=== PATIENT | male | born 1965 | race Caucasian/White ===

== ENCOUNTER → 2016-04-29 | Outpatient (CLI) | payer OTHER ==
[~2016-04-29] MED LIST: ASPI325T39 PO; ATOR-26 PO; BUSP-8 PO; CARV12.5 PO; CARV12.52 PO; CEFD300C2 PO; CHOL100010 PO; CHOL2000 PO; GABA800T PO; LAMO200T PO; LEVE500T13 PO; LEVO-18 PO; LISI-729 PO; LISI5TAB PO; LMC100 PO; METH500T37 PO; NOTE; OMEP40CA41 PO; OXY/15 PO; PROM25TA9 PO; PRZ/40 PO; QUET1TAB37 PO; THIA100T11 PO; [UNRECOGNIZED DRUG - CODE] PR; [UNRECOGNIZED DRUG - CODE] RE
[2016-04-29 14:30] LABS: HEMATOCRIT 34.7 % (42-52); MEAN CELL VOLUME 87.2 fL (80-100); MEAN CORPUSCULAR HEMOGLOBIN 30.7 pg (25-34); MEAN CORPUSCULAR HGB CONC 35.2 g/dl (32-36); MEAN PLATELET VOLUME 9.5 fL (7.4-10.4); PLATELET COUNT 276 K/uL (130-400); RED BLOOD COUNT 3.98 M/uL (4.7-6.1); WHITE BLOOD COUNT 5.53 K/uL (4.8-10.8)
[2016-04-29 14:41] LABS: ALT/SGPT 16 U/L (12-78); AST/SGOT 15 U/L (15-37); BLOOD UREA NITROGEN 19 mg/dl (7-18); BUN/CREATININE RATIO 19.5 (10-20); CALCIUM 9.9 mg/dl (8.5-10.1); CARBON DIOXIDE 23 mmol/L (21-32); CHLORIDE 101 mmol/L (98-107); CREATININE 0.96 mg/dl (0.60-1.40); GLUCOSE 66 mg/dl (70-99); POTASSIUM 4.3 mmol/L (3.5-5.1); SODIUM 138 mmol/L (136-145)
[2016-04-29 14:44] LABS: ALB/GLOB RATIO 1.3 (0.9-2); ALKALINE PHOSPHATASE 85 U/L (45-117)
[2016-04-30 06:16] LABS: ESTIMATED AVERAGE GLUCOSE 105 mg/dl; HA1C FLAG Normal (Normal)
== END | disposition home or self-care (01) ==
LOC: C.LABSPEC 14:26
PROVIDERS: ATTEND Family Medicine
DX: E11.9 Type 2 diabetes mellitus without complications (principal); I10 Essential (primary) hypertension; I63.9 Cerebral infarction, unspecified

== ENCOUNTER → 2016-06-24 | Outpatient (CLI) | payer OTHER | END | disposition home or self-care (01) | LOC: C.LABBC 12:31 | PROVIDERS: ATTEND Family Medicine | DX: Z11.59 Encounter for screening for other viral diseases (principal) ==

== ENCOUNTER → 2016-07-20 | Outpatient (CLI) | payer OTHER ==
[2016-07-20 14:36] LABS: HEMATOCRIT 36.4 % (42-52); MEAN CELL VOLUME 89.7 fL (80-100); MEAN CORPUSCULAR HEMOGLOBIN 30.3 pg (25-34); MEAN CORPUSCULAR HGB CONC 33.8 g/dl (32-36); MEAN PLATELET VOLUME 9.7 fL (7.4-10.4); PLATELET COUNT 296 K/uL (130-400); RED BLOOD COUNT 4.06 M/uL (4.7-6.1); WHITE BLOOD COUNT 8.56 K/uL (4.8-10.8)
[2016-07-20 15:01] LABS: ALT/SGPT 15 U/L (12-78); AST/SGOT 9 U/L (15-37); BLOOD UREA NITROGEN 15 mg/dl (7-18); BUN/CREATININE RATIO 16.8 (10-20); CALCIUM 8.8 mg/dl (8.5-10.1); CARBON DIOXIDE 29 mmol/L (21-32); CHLORIDE 109 mmol/L (98-107); CREATININE 0.88 mg/dl (0.60-1.40); GLUCOSE 90 mg/dl (70-99); POTASSIUM 4.7 mmol/L (3.5-5.1); SODIUM 144 mmol/L (136-145)
[2016-07-20 15:04] LABS: ALB/GLOB RATIO 1.2 (0.9-2); ALKALINE PHOSPHATASE 82 U/L (45-117)
== END | disposition home or self-care (01) ==
LOC: C.LABSPEC 14:06
PROVIDERS: ATTEND Family Medicine Hospice and Palliative Medicine
DX: I63.9 Cerebral infarction, unspecified (principal)

== ENCOUNTER 2016-10-20 03:57 | Inpatient (IN) | payer OTHER ==
[2016-10-20] VITALS (17 sets, daily range): BP systolic 135–192; BP diastolic 86–127; PULSE 76–115; TEMP 36.8–37.1; O2SAT 98–100; Ht 180.3 cm; Wt 80.5 kg
[~2016-10-20] VITALS: Ht 180.3 cm; Wt 80.5 kg
[~2016-10-20 03:57] MED LIST changes: -CARV12.5 PO; -CHOL2000 PO; -LEVE500T13 PO; -LEVO-18 PO; -LISI-729 PO; -LMC100 PO; -NOTE; -[UNRECOGNIZED DRUG - CODE] PR
[2016-10-20] MEDS ORDERED: SODIUM CHLORIDE 0.9% 500ML 500 ML IV STA ×2 (04:21→04:54)
[2016-10-20] MEDS ORDERED: SODIUM CHLORIDE 0.9% 1000ML 1,000 ML IV STA ×2 (04:21→05:35)
[2016-10-20] MEDS ORDERED: CARV12.5 PO (04:24)
[2016-10-20] MEDS ORDERED: CHOL2000 PO (04:27)
[2016-10-20] MEDS ORDERED: [UNRECOGNIZED DRUG - CODE] PR (04:29)
[2016-10-20] MEDS ORDERED: LISI-729 PO (04:32)
[2016-10-20 04:39] LABS: INR 0.9 (0.9-1.1)
[2016-10-20] MEDS ORDERED: RAPID SEQUENCE INDUCTION BAG ONE ×2 (04:45→15:35)
[2016-10-20] MEDS ORDERED: PROPOFOL IV EMULSION 10 MG/ML 100 ML VIAL IV ONE (04:53)
[2016-10-20 04:58] LABS: BLOOD UREA NITROGEN 11 mg/dl (7-18); BUN/CREATININE RATIO 8.1 (10-20); CALCIUM 8.7 mg/dl (8.5-10.1); CARBON DIOXIDE 18 mmol/L (21-32); CHLORIDE 103 mmol/L (98-107); GLUCOSE 304 mg/dl (70-99); MAGNESIUM 2.3 mg/dl (1.8-2.4); POTASSIUM 3.2 mmol/L (3.5-5.1); SODIUM 137 mmol/L (136-145)
[2016-10-20 04:59] LABS: HEMATOCRIT 44.3 % (42-52); MEAN CELL VOLUME 94.7 fL (80-100); MEAN CORPUSCULAR HEMOGLOBIN 32.7 pg (25-34); MEAN CORPUSCULAR HGB CONC 34.5 g/dl (32-36); MEAN PLATELET VOLUME 9.7 fL (7.4-10.4); PLATELET COUNT 344 K/uL (130-400); RED BLOOD COUNT 4.68 M/uL (4.7-6.1); WHITE BLOOD COUNT 24.92 K/uL (4.8-10.8)
[2016-10-20] MEDS ORDERED: LEVETIRACETAM IV 1,000 MG in DEXTROSE 5% 100ML 100 ML IV ONE (05:00)
[2016-10-20] MEDS ORDERED: PROPOFOL IV EMULSION 10 MG/ML 100 ML VIAL IV STA ×2 (05:00→05:07)
--- NOTE | 2016-10-20 05:00 | EMERGENCY ROOM VISIT NOTE ---
ED Visit Note First contact with patient: 04:02 Patient seen by me on an emergent status due to the fact that the patient had a reported seizure and was obtunded upon arrival. Patient was found obtunded by me unable to maintain his airway with sonorous respirations. Patient did not respond no a deep sternal rub. Patient was brought to the critical care room and was intubated emergently by me. Patient was started on IV Keppra, IV to prevent, patient received a full evaluation for seizure possible sepsis. Patient will be admitted to the intensive care unit. Endotracheal Intubation Indication [respiratory failure]. The patient was on 100% oxygen via NRB prior to the procedure. Suction, airway equipment, RSI drugs, respiratory equipment, and appropriate personnel were prepared prior to the initiation of the procedure. A time out was taken. Induction was performed with etomidate 20 mg IV, succinylcholine 100 mg IV. After observing the clinical benefit of the medications, the airway was easily visualized utilizing a laryngoscope with a Mac 4 blade. A 7.5 size ETT tube was placed atraumatically to 22 cm using standard technique. The cuff inflated without signs of malfunction. There were bilateral breath sounds, positive colormetric change, no gastric sounds, a good capnography waveform, and post procedure pulse oximetry was 98 %. Post intubation sedation and paralysis was administered diprivan. There were no complications.
[2016-10-20 05:01] LABS: PHOSPHORUS 5.2 mg/dl (2.5-4.9)
[2016-10-20 05:10] LABS: URINE APPEARANCE CLEAR (CLEAR); URINE BILIRUBIN NEG (NEG); URINE COLOR YELLOW; URINE NITRITE NEG (NEG); URINE SPECIFIC GRAVITY 1.018 (1.000-1.030); UROBILINOGEN NEG (NEG); ZZURINE CULT IF INDIC CATH NO
[2016-10-20 05:14] LABS: MANUAL MICROSCOPIC REQUIRED? NO; REVIEW REQ? YES
[2016-10-20 05:18] LABS: BETA-HYDROXYBUTYRATE 1.51 mg/dL (0.2-2.81); CKMB/CK RATIO 1.8 (0-3.0)
[2016-10-20] MEDS ORDERED: VANCOMYCIN INJ 2,000 MG in SODIUM CHLORIDE 0.9% 500ML 500 ML IV STA (05:35)
[2016-10-20] MEDS ORDERED: PIPERACILLIN/TAZOBACTAM 4.5 GM/100ML D5W IV STA (05:35)
[2016-10-20 05:45] LABS: BENZODIAZEPINE, URINE POS (NEG); COCAINE,URINE NEG (NEG); PHENCYCLIDINE, URINE NEG (NEG)
[2016-10-20] MEDS ORDERED: GLUCOSE 40% GEL 15 GM TUBE PO PRN (06:00)
[2016-10-20] MEDS ORDERED: GLUCAGON FOR INJ 1 MG VIAL SQ PRN (06:00)
[2016-10-20] MEDS ORDERED: GLUCOSE 10 TABS/TUBE PO PRN (06:00)
[2016-10-20] MEDS ORDERED: LORAZEPAM 2 MG/ML 1 ML VIAL IV PRN (06:00)
[2016-10-20] MEDS ORDERED: DEXTROSE 50% 50 ML SYR IV PRN (06:00)
[2016-10-20] MEDS ORDERED: ONDANSETRON INJ 2 MG/ML 2 ML VIAL IV PRN (06:00)
[2016-10-20] MEDS ORDERED: NOTE (06:10)
[2016-10-20] MEDS ORDERED: MIDAZOLAM 125MG/250ML D5W 250 ML IV PRN (06:11)
[2016-10-20] MEDS ORDERED: LORAZEPAM INJ 1 MG in SYRINGE 0.5 ML IV PRN (06:15)
[2016-10-20 06:16] LABS: EOSINOPHIL % 0.9 %; LYMPH ABS # 9.49 K/uL (1.2-3.4); LYMPHOCYTE % 38.1 %; META ABS # 0.87 K/uL (0-0); METAMYELOCYTE % 3.5 %; MYELOCYTE % 0.9 %; NEUTROPHILS % 29.6 %; VARIANT LYM ABS # 4.56 K/uL; VARIANT LYMPHOCYTE % 18.3 %
[2016-10-20 06:18] LABS: COMPLETE YES
[2016-10-20 06:28] LABS: ISTAT ARTERIAL BLOOD GAS HCO3 25 meq/L (19-24); ISTAT ARTERIAL BLOOD GAS PCO2 64 mmHg (35-46); ISTAT ARTERIAL BLOOD GAS PO2 > 420 mmHg (80-95); ISTAT CARBON DIOXIDE 27 mEq/l (24-31)
--- NOTE | 2016-10-20 06:33 | DIAGNOSTIC IMAGING REPORT ---
HEAD WITHOUT CONTRAST (CT) CLINICAL HISTORY: 50 years-old Male with seizure, AMS. Acute altered mental status. Initial exam. TECHNIQUE: Multiple axial CT images of the head were obtained without contrast. A dose lowering technique was utilized adhering to the principles of ALARA. CT DOSE: 614.27 mGy.cm COMPARISON: CT head and MRI brain 01/30/2015. FINDINGS: No acute intracranial hemorrhage, midline shift, mass, large territorial ischemia or abnormal extra-axial collection. Encephalomalacia related to remote infarction again seen within the left cerebral hemisphere frontoparietal distribution. There is mild cerebral atrophy. Remote lacunar infarctions of the basal ganglia are unchanged. The calvarium is intact. The paranasal sinuses, mastoid air cells, and middle ear cavities are clear. There is a small right occipital scalp hematoma, 2.8 x 0.6 cm. IMPRESSION: 1. Small right occipital scalp hematoma without acute intracranial abnormality. Negative for hemorrhage or calvarial fracture. 2. Chronic changes as above including remote left frontoparietal infarction. The above report was generated using voice recognition software. It may contain grammatical, syntax or spelling errors. Electronically signed by: Sherman Silverio M.D. 10/20/2016 6:32 AM Dictated Date/Time: 10/20/2016 6:29 AM
--- NOTE | 2016-10-20 06:34 | EMERGENCY ROOM VISIT NOTE ---
History First contact with patient: 04:02 Chief Complaint: SEIZURE Stated Complaint: SEIZURE Nursing Triage Summary: pt brought to main ED by ALS services. ALS reports pt has a seizure hx and is noncompliant with medications for 2-3 months. reports roommate/caregiver called 911 when pt began seizing tonight, ALS reports >10min grand mal seizure with full body shaking. pt was given 5mg versed nasally by ALS which did control seizures. [facility]. upon arrival pt is unresponsive except to deep painful stimuli. nasal trumpet in left nare placed by ALS. pt is breathing independently with occasional grunting. nonrebreather in place. skin is pale and clammy. pt has disheveled apperance. pupils pinpoint. abd soft. History of Present Illness The patient is a 50 year old male who presents to the Emergency Room with complaints of prolonged seizure. Patient's caregiver called EMS as patient had a seizure for greater than 10 minutes. The caregiver states that the patient called out for him as he knew he is having a seizure. He seized for greater than 10 minutes and called EMS. When EMS arrived they gave him Versed and the seizing finally resolved. Caregiver states that the patient has chosen not to take his Lamictal anymore for his seizure disorder. 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 He is aphasic. Caregiver states that he smokes cigarettes and occasionally smokes marijuana. He also states that he takes Tylenol and Motrin at his leisure. No alcohol use. Patient states the patient has not complained of anything recently. Patient is postictal / obtunded and unable to obtain history. He does moan to sternal rub. Caregiver states that he is not taking any medicines at all that he is supposed to. Caregiver states that he is a full code. Review of Systems Unable to obtain secondary to altered mental status from being postictal from seizure Past Medical/Surgical History Medical Problems: (1) Acute renal failure (2) Acute renal failure (3) Acute renal failure syndrome (4) Anticoagulant therapy (5) Aphasia (6) Cardiomyopathy (7) CVA (cerebral vascular accident) (8) Depression (9) Diabetes mellitus (10) Elevated serum troponin (11) Hemiparesis (12) Ischemic stroke (13) Left arm weakness (14) liver disease (15) LV mural thrombus (16) Obtunded (17) Seizure (18) TIA (transient ischemic attack) (19) Urinary retention Family History Patient reports no known family medical history. Social History Smoking Status: Unknown if Ever Smoked Alcohol Use: occasionally Drug Use: none Marital Status: single Housing Status: lives with significant other Occupation Status: unemployed, disabled Current/Historical Medications Scheduled Aspirin (Aspirin Ec), 325 MG PO QAM Atorvastatin (Lipitor), 80 MG PO QPM Carvedilol (Coreg), 12.5 MG PO BID Cholecalciferol (Vitamin D3), 2,000 UNITS PO DAILY Diazepam (Anticonvulsant) (Diastat Acudial), 1 DOSE [place] PRN/SEIZURE Fluoxetine Hcl (Prozac), 80 MG PO QAM Gabapentin (Neurontin), 800 MG PO TID Lamotrigine (Lamictal), 250 MG PO BID Lisinopril (Zestril), 5 MG PO DAILY Omeprazole (Prilosec), 40 MG PO DAILY Quetiapine Fumarate (Seroquel), 300 MG PO HS Thiamine Hcl (Vitamin B-1), 100 MG PO QAM Scheduled PRN Methocarbamol (Robaxin), 500 MG PO TID PRN for MUSCLE SPASMS Promethazine Hcl (Phenergan), 25 MG PO TID PRN for Nausea Physical Exam Vital Signs Date Time Temp Pulse Resp B/P (MAP) Pulse Ox O2 Delivery O2 Flow Rate FiO2 10/20/16 06:01 109 0 185/115 100 10/20/16 05:56 118 0 100 10/20/16 05:51 124 0 172/115 97 10/20/16 05:46 133 0 98 10/20/16 05:41 106 0 138/88 97 10/20/16 05:36 115 0 95 10/20/16 05:31 121/84 10/20/16 05:27 108 12 128/97 98 10/20/16 05:25 40 10/20/16 05:22 113 21 97 10/20/16 05:21 135/89 10/20/16 05:17 130 17 97 10/20/16 05:12 121 25 99 10/20/16 05:11 158/113 10/20/16 05:08 182/118 10/20/16 05:07 139 20 100 10/20/16 05:02 136 28 96 10/20/16 05:01 208/128 10/20/16 04:57 132 30 98 10/20/16 04:52 147 30 96 10/20/16 04:51 183/117 10/20/16 04:50 130 183/117 97 Ambu-Bag 10/20/16 04:50 98 10/20/16 04:50 205/120 10/20/16 04:49 135 205/120 98 Non-Rebreather 15.0 10/20/16 04:47 136 15 203/113 98 10/20/16 04:44 137 6 203/113 98 Non-Rebreather 15.0 10/20/16 04:42 136 20 98 10/20/16 04:29 98 Non-Rebreather 15.0 10/20/16 04:29 98 Non-Rebreather 15.0 10/20/16 04:28 137 6 98 Room Air 10/20/16 04:27 136 7 98 10/20/16 04:23 137 10/20/16 04:22 138 3 98 10/20/16 04:15 138 6 194/119 98 Non-Rebreather 15.0 10/20/16 04:00 98 Non-Rebreather 15.0 10/20/16 04:00 37.4 138 8 192/115 96 Non-Rebreather 15.0 Physical Exam VITALS: Vitals are noted on the nurse's note and reviewed by myself. Vital signs hypertensive, tachycardic. GENERAL: White male unable to follow commands SKIN: The skin was without rashes, erythema, edema, or bruising. There is no tenting of the skin. Capillary reflex less than 2 seconds. HEAD: Normocephalic atraumatic. EARS: External auditory canals clear, tympanic membranes pearly rodriguez without erythema or effusion bilaterally. EYES: Pupils equal round and reactive to light and accommodation. Conjunctivae without injection, sclerae without icterus. NOSE: Patent, turbinates without inflammation or discharge. MOUTH: Mucous membranes mildly dry. Pharynx without erythema or exudate. Uvula midline. Airway patent. Tongue does not deviate. NECK: Supple without nuchal rigidity. No lymphadenopathy. No thyromegaly. No JVD. HEART: Tachycardic rate and rhythm LUNGS: Clear to auscultation bilaterally without wheezes, rales or rhonchi. No dullness to percussion. No retractions or accessory muscle use. ABDOMEN: Positive bowel sounds x 4. Normal tympanic percussion. Soft, nontender, without masses or organomegaly. Grimaldo sign negative. No guarding or rebound tenderness. MUSCULOSKELETAL: No muscle atrophy, erythema, or edema noted. NEURO: Patient was barely responsive to painful stimuli. Medical Decision & Procedures Laboratory Results 10/20/16 04:10 Red Blood Count 4.68, Mean Corpuscular Volume 94.7, Mean Corpuscular Hemoglobin 32.7, Mean Corpuscular Hemoglobin Concent 34.5, Mean Platelet Volume 9.7 10/20/16 04:10 Test 10/20/16 04:05 10/20/16 04:10 10/20/16 04:46 10/20/16 05:26 Urine Color YELLOW Urine Appearance CLEAR (CLEAR) Urine pH 5.0 (4.5-7.5) Urine Specific [place] 1.018 (1.000-1.030) Urine Protein 2+ (NEG) Urine Glucose (UA) 2+ (NEG) Urine Ketones NEG (NEG) Urine Occult Blood TRACE (NEG) Urine Nitrite NEG (NEG) Urine Bilirubin NEG (NEG) Urine Urobilinogen NEG (NEG) Urine Leukocyte Esterase NEG (NEG) Urine WBC (Auto) 1-5 /hpf (0-5) Urine RBC (Auto) 0-4 /hpf (0-4) Urine Hyaline Casts (Auto) 0 /lpf (0-5) Urine Epithelial Cells (Auto) 5-10 /lpf (0-5) Urine Bacteria (Auto) NEG (NEG) Urine Renal Epithelial Cells /lpf (0-5) Urine Sperm (Auto) PRESENT (NOT PRESENT) Urine Opiates Screen NEG (NEG) Urine Methadone, Qualitative NEG (NEG) Urine Barbiturates NEG (NEG) Urine Phencyclidine (PCP) Level NEG (NEG) Ur Amphetamine/Methamphetamine NEG (NEG) MDMA (Ecstasy) Screen NEG (NEG) Urine Benzodiazepines Screen POS (NEG) Urine Cocaine Metabolite NEG (NEG) Urine Marijuana (THC) POS (NEG) White Blood Count 24.92 K/uL (4.8-10.8) Red Blood Count 4.68 M/uL (4.7-6.1) Hemoglobin 15.3 g/dL (14.0-18.0) Hematocrit 44.3 % (42-52) Mean Corpuscular Volume 94.7 fL (80-100) Mean Corpuscular Hemoglobin 32.7 pg (25-34) Mean Corpuscular Hemoglobin Concent 34.5 g/dl (32-36) Platelet Count 344 K/uL (130-400) Mean Platelet Volume 9.7 fL (7.4-10.4) RDW Standard Deviation 41.9 fL (36.4-46.3) RDW Coefficient of Variation 12.3 % (11.5-14.5) Neutrophils % (Manual) 29.6 % Lymphocytes % (Manual) 38.1 % Variant Lymphocytes % (manual) 18.3 % Monocytes % (Manual) 8.7 % Eosinophils % (Manual) 0.9 % Metamyelocytes % 3.5 % Myelocytes % 0.9 % Neutrophils # (Manual) 7.38 K/uL (1.4-6.5) Total Absolute Neutrophils 7.38 K/uL (1.4-6.5) Lymphocytes # (Manual) 9.49 K/uL (1.2-3.4) Absolute Variant Lymphocytes 4.56 K/uL Total Absolute Lymphocytes 14.05 K/uL (1.2-3.4) Monocytes # (Manual) 2.17 K/uL (0.11-0.59) Eosinophils # (Manual) 0.22 K/uL (0-0.5) Metamyelocytes # 0.87 K/uL (0-0) Myelocytes # 0.22 K/uL (0-0) Red Blood Cell Morphology Unremarkable Prothrombin Time 10.0 SECONDS (9.0-12.0) Prothromb Time International Ratio 0.9 (0.9-1.1) Activated Partial Thromboplast Time 26.4 SECONDS (21.0-31.0) Partial Thromboplastin Ratio 1.0 Anion Gap 16.0 mmol/L (3-11) Estimated GFR () 66.9 Estimated GFR (Non- 57.8 BUN/Creatinine Ratio 8.1 (10-20) Calcium Level 8.7 mg/dl (8.5-10.1) Phosphorus Level 5.2 mg/dl (2.5-4.9) Magnesium Level 2.3 mg/dl (1.8-2.4) Total Creatine Kinase 137 U/L (39-308) Creatine Kinase MB 2.4 ng/ml (0.5-3.6) Creatine Kinase MB Ratio 1.8 (0-3.0) Troponin I 0.064 ng/ml (0-0.045) Beta-Hydroxybutyric Acid 1.51 mg/dL (0.2-2.81) Procalcitonin 0.11 ng/ml (0-0.5) Thyroid Stimulating Hormone (TSH) 1.970 uIu/ml (0.300-4.500) Bedside Glucose 273 mg/dl (70-99) Bedside Lactic Acid Venous 5.00 mmol/L (0.90-1.70) Test 10/20/16 05:35 10/20/16 06:14 Salicylates Level 2.6 mg/dl (2.8-20) Acetaminophen Level 2 ug/ml (10-30) Ethyl Alcohol mg/dL < 3.0 mg/dl (0-3) Bedside Blood Gas pH (LAB) 7.20 (7.35-7.45) Bedside Blood Gas pCO2 (LAB) 64 mmHg (35-46) Bedside Blood Gas pO2 (LAB) > 420 mmHg (80-95) Bedside Blood Gas HCO3 (LAB) 25 meq/L (19-24) Bedside Blood Gas Total CO2 27 mEq/l (24-31) Bedside Blood Gas Base Excess (LAB) -3.0 meq/L (-9-1.8) Bedside Blood Gas O2 Saturation 100.0 % (90-95) Medications Administered Medications (Trade) Dose Ordered Sig/Jerson Route Start Time Stop Time Status Last Admin Dose Admin Sodium Chloride 500 ml @ 999 mls/hr Q31M STAT IV 10/20/16 04:21 10/20/16 04:51 DC 10/20/16 05:10 999 MLS/HR Sodium Chloride 1,000 ml @ 125 mls/hr Q8H STAT IV 10/20/16 04:21 10/20/16 12:20 10/20/16 05:13 125 MLS/HR Levetiracetam 1000 mg/Dextrose 110 ml @ 440 mls/hr ONE ONCE IV 10/20/16 05:00 10/20/16 05:14 DC 10/20/16 05:11 440 MLS/HR Sodium Chloride 500 ml @ 999 mls/hr Q31M STAT IV 10/20/16 04:54 10/20/16 05:24 DC 10/20/16 05:11 999 MLS/HR Propofol (Diprivan Iv Emulsion 100ml Vial) 1 dose UD STAT IV 10/20/16 05:07 10/20/16 05:08 DC 10/20/16 05:11 1 DOSE Sodium Chloride 1,000 ml @ 999 mls/hr Q1H1M STAT IV 10/20/16 05:35 10/20/16 06:35 10/20/16 05:39 999 MLS/HR Piperacillin Sod/ Tazobactam Sod (Zosyn Iv) 4.5 gm NOW STAT IV 10/20/16 05:35 10/20/16 05:38 DC 10/20/16 05:52 4.5 GM Vancomycin HCl 2000 mg/Sodium Chloride 540 ml @ 200 mls/hr ONE STAT IV 10/20/16 05:35 10/20/16 08:16 10/20/16 06:24 200 MLS/HR ED Course Prior records/ancillary studies reviewed. Patient placed in seizure precautions immediately upon arrival. Nursing notes reviewed. Additional history obtained from EMS The patient's history was concerning for a possible seizure. Differential diagnosis: Etiologies such as infection, hypoglycemia, electrolyte abnormalities, cardiac sources, intracerebral event, trauma, toxicologic, neurologic, as well as others were entertained. Physical examination: As above. No signs of trauma. ER treatment provided: EMS gave Versed, IV fluids, Keppra, Zosyn, vancomycin, propofol On reassessment the patient felt better. Diagnostics interpretation by me: ECG: Normal sinus, normal intervals, Q waves in the inferior and lateral leads, no acute ST-T wave changes, rate of 137. Impression sinus tachycardia with Q waves present unchanged from prior EKG per chart review and reviewed by myself The labs revealed leukocytosis, elevated troponin, elevated lactic acid Sebastian catheter was placed. Positive drug screen for marijuana Imaging studies: Chest x-ray with proper placement of ET tube with no pneumonia, consolidation or pneumothorax per my interpretation. Head CT was read by stat radiology with no acute intracranial process. Chronic left MCA infarct Consultation: A consultation was placed with the hospitalist resident for reese Doan and Dr. Martins. The case was discussed and diagnostics were reviewed. Patient will be admitted to the ICU. The elastic tape inserter was notified by my attending. The patient has a history of seizures and experienced another episode. Patient a prolonged seizure and was obtunded upon arrival. He was on a non-rebreather and nasal trumpet was in place. Patient is aphasic. He was sent immediately for CAT scan. EKG showed no widening of the QRS. Patient was intubated upon return from CT by my Attending as he was not awaking or becoming aroused from his seizure. Caregiver states that he is a full code. he was given IV fluids and septic protocol was initiated. Patient was found to have an elevated troponin and lactic acid. The caregiver was informed of the above findings and kept informed throughout the stay. Caregiver stated that the patient just gave up on taking his meds. He states all he wanted to smoke marijuana and cigarettes. He states he has not been sleeping properly. He states she has of playing video games. He states that he has not been complaining of anything to him. The caregiver informed about the findings as listed above. All questions were answered and pleased with the treatment. Case reviewed with my attending Medical Decision As above Medication Reconcilliation Current Medication List: was personally reviewed by me Blood Pressure Screening Patient's blood pressure: Elevated blood pressure Blood pressure disposition: Referred to PCP Impression Primary Impression: Status epilepticus, generalized convulsive Additional Impressions: Altered mental status Elevated serum troponin Critical Care I have personally spent greater than 30 minutes of critical care time in the direct management of this patient. This includes bedside care, interpretation of diagnostic studies, and testing, discussion with consultants, patient, and family members, and other required patient management activities. This 30 minutes is in excess of all separately billable procedures. Departure Information Dispostion Being Evaluated By Hospitalist Condition POOR Referrals Jimmy Pratt, Brittany.[email or web address]. (PCP) Patient Instructions My [facility] Problem Qualifiers
[2016-10-20] MEDS ORDERED: INSULIN ASPART 100 UNITS/ML 3 ML PEN SC SCH ×2 (07:00→12:00)
--- NOTE | 2016-10-20 07:10 | DIAGNOSTIC IMAGING REPORT ---
SINGLE VIEW CHEST CLINICAL HISTORY: Change in mental status. Intubation. FINDINGS: An AP, portable, supine chest radiograph is compared to study dated 12/08/2015. The examination is degraded by portable technique and patient rotation. An endotracheal tube has been placed. The tip of the catheter projects 2.8 cm above the [place]. The heart is top normal for projection. The pulmonary vasculature is noncongested. There is mild bibasilar atelectasis. No airspace consolidation is seen typical for pneumonia and there is no large pleural effusion. No pneumothorax is seen. The bony thorax is grossly intact. IMPRESSION: 1. An endotracheal tube has been placed. The tip of the catheter projects 2.8 cm above the [place]. 2. The lungs are clear. Electronically signed by: Leon Gamino M.D. 10/20/2016 7:09 AM Dictated Date/Time: 10/20/2016 7:08 AM
[2016-10-20] MEDS ORDERED: VANCOMYCIN CONSULT ACTIVE PRN (08:30)
[2016-10-20] MEDS ORDERED: PIPERACILL/TAZOBAC CONSULT ACTIVE PRN (08:30)
[2016-10-20] MEDS: FAMOTIDINE IV INJ 20 MG in DEXTROSE 5% 100ML 100 ML IV SCH ×2 (08:35→22:25)
[2016-10-20] MEDS: METOPROLOL TARTRATE 1 MG/ML VIAL IV. SCH ×4 (08:36→22:26)
[2016-10-20] MEDS: PROPOFOL IV EMULSION 10 MG/ML 100 ML VIAL IV SCH (08:38)
[2016-10-20] MEDS: NSS + 20MEQ KCL 1000ML 1,000 ML IV SCH ×2 (08:55→16:07)
[2016-10-20] MEDS: LEVETIRACETAM IV 500 MG in DEXTROSE 5% 100ML 100 ML IV SCH ×2 (08:55→22:24)
--- NOTE | 2016-10-20 09:11 | History and Physical ---
History & Physical Date & Time of Service: Oct 20, 2016 at 08:52 Chief Complaint: Obtunded,Epilepticus,Generalized Convulsive Primary Care Physician: Jimmy Pratt D.O.Int.Med. History of Present Illness Source: caregiver, hospital records 50-year-old male with a past medical history of seizure disorder, stroke, hypertension, diabetes presented to the ER via EMS in status epilepticus. Per the patient's caregiver the patient started to have seizures at about 3 AM this morning. The seizure had lasted for more than 10 minutes. He denied any head injury but stated that the patient had fallen from his wheelchair. He had jerky movements but denied any bowel or bladder incontinence. There was no tongue biting. The patient was unresponsive on arrival and was intubated. Per the patient's caregiver the patient had stopped using his antiseizure medications along with rest of his medications about 3 months ago and had been using marijuana about 3 times a day. He stated that the patient had not complained about any any recent fevers or chills, upper respiratory tract infections, nausea or vomiting or abdominal pain. The patient also has a history of seizures that are triggered after urinary tract infection in November 2015. He also noted that the patient had not been sleeping well and had been awake for 36-48 hours and had been playing computer games. The patient was intubated and transferred to the ICU. Past Medical/Surgical History Medical Problems: (1) Acute renal failure Status: Resolved (2) Acute renal failure syndrome Status: Resolved (3) Anticoagulant therapy Status: Chronic (4) Aphasia Status: Chronic (5) Cardiomyopathy Permanent Comment: 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% Status: Chronic (6) CVA (cerebral vascular accident) Status: Resolved (7) Depression Status: Chronic (8) Diabetes mellitus Status: Chronic (9) Hemiparesis Permanent Comment: right hemiparesis Status: Chronic (10) Ischemic stroke Permanent Comment: left MCA received TPA echo- LV mural thrombus residual right hemiparesis + aphasia Status: Resolved (11) liver disease Status: Chronic (12) LV mural thrombus Permanent Comment: 2009 Status: Resolved (13) Seizure Status: Chronic (14) TIA (transient ischemic attack) Status: Resolved Family History Patient reports no known family medical history. Social History Smoking Status: Current Every Day Smoker Smokeless Tobacco Use: No Alcohol Use: none Drug Use: marijuana Marital Status: single Housing status: lives with friends Occupational Status: unemployed, disabled Immunizations History of Influenza Vaccine: Yes Influenza Vaccine Date: Dec 21, 2012 History of Tetanus Vaccine?: Unknown Tetanus Immunization Date: Aug 13, 2012 History of Pneumococcal: No History of Hepatitis B Vaccine: Unknown Multi-Drug Resistant Organisms History of MDRO: No Allergies Coded Allergies: Codeine (Verified Allergy, Mild, HIVES, 12/08/15) Home Medications Scheduled Aspirin (Aspirin Ec), 325 MG PO QAM Atorvastatin (Lipitor), 80 MG PO QPM Carvedilol (Coreg), 12.5 MG PO BID Cholecalciferol (Vitamin D3), 2,000 UNITS PO DAILY Diazepam (Anticonvulsant) (Diastat Acudial), 1 DOSE TN PRN/SEIZURE Fluoxetine Hcl (Prozac), 80 MG PO QAM Gabapentin (Neurontin), 800 MG PO TID Lamotrigine (Lamictal), 250 MG PO BID Lisinopril (Zestril), 5 MG PO DAILY Omeprazole (Prilosec), 40 MG PO DAILY Quetiapine Fumarate (Seroquel), 300 MG PO HS Thiamine Hcl (Vitamin B-1), 100 MG PO QAM Scheduled PRN Methocarbamol (Robaxin), 500 MG PO TID PRN for MUSCLE SPASMS Promethazine Hcl (Phenergan), 25 MG PO TID PRN for Nausea Review of Systems unable to obtain as patient is intubated Physical Exam Vital Signs Date Time Temp Pulse Resp B/P (MAP) Pulse Ox O2 Delivery O2 Flow Rate FiO2 10/20/16 08:30 99 20 160/107 (124) 98 10/20/16 08:27 36.8 102 20 169/123 98 Mechanical Ventilator 30 10/20/16 08:00 115 18 174/92 (119) 10/20/16 07:40 40 10/20/16 07:30 24 192/125 (147) 99 10/20/16 07:23 102 22 192/125 100 Mechanical Ventilator 10/20/16 06:56 112 25 99 10/20/16 06:51 110 25 200/129 99 10/20/16 06:46 119 23 98 10/20/16 06:42 201/127 10/20/16 06:41 116 23 100 10/20/16 06:36 109 24 100 10/20/16 06:31 117 27 200/136 100 10/20/16 06:26 98 19 100 10/20/16 06:21 106 13 193/120 100 10/20/16 06:16 103 0 100 10/20/16 06:11 106 3 186/123 100 10/20/16 06:06 104 0 100 10/20/16 06:01 109 0 185/115 100 10/20/16 05:56 118 0 100 10/20/16 05:51 124 0 172/115 97 10/20/16 05:46 133 0 98 10/20/16 05:41 106 0 138/88 97 10/20/16 05:36 115 0 95 10/20/16 05:31 121/84 10/20/16 05:27 108 12 128/97 98 10/20/16 05:25 40 10/20/16 05:22 113 21 97 10/20/16 05:21 135/89 10/20/16 05:17 130 17 97 10/20/16 05:12 121 25 99 10/20/16 05:11 158/113 10/20/16 05:08 182/118 10/20/16 05:07 139 20 100 10/20/16 05:02 136 28 96 10/20/16 05:01 208/128 10/20/16 04:57 132 30 98 10/20/16 04:52 147 30 96 10/20/16 04:51 183/117 10/20/16 04:50 130 183/117 97 Ambu-Bag 10/20/16 04:50 98 10/20/16 04:50 205/120 10/20/16 04:49 135 205/120 98 Non-Rebreather 15.0 10/20/16 04:47 136 15 203/113 98 10/20/16 04:44 137 6 203/113 98 Non-Rebreather 15.0 10/20/16 04:42 136 20 98 10/20/16 04:29 98 Non-Rebreather 15.0 10/20/16 04:29 98 Non-Rebreather 15.0 10/20/16 04:28 137 6 98 Room Air 10/20/16 04:27 136 7 98 10/20/16 04:23 137 10/20/16 04:22 138 3 98 10/20/16 04:15 138 6 194/119 98 Non-Rebreather 15.0 10/20/16 04:00 98 Non-Rebreather 15.0 10/20/16 04:00 37.4 138 8 192/115 96 Non-Rebreather 15.0 General Appearance: + pertinent finding (s/p intubation) Respiratory/Chest: normal breath sounds Cardiovascular: + tachycardia Abdomen/GI: normal bowel sounds, soft Neurologic/Psych: + pertinent finding (sedated) Diagnostics Laboratory Results Results Past 24 Hours Test 10/20/16 04:05 10/20/16 04:10 10/20/16 04:46 10/20/16 05:26 Range/Units Urine Color YELLOW Urine Appearance CLEAR CLEAR Urine pH 5.0 4.5-7.5 Urine Specific [employer] 1.018 1.000-1.030 Urine Protein 2+ NEG Urine Glucose (UA) 2+ NEG Urine Ketones NEG NEG Urine Occult Blood TRACE NEG Urine Nitrite NEG NEG Urine Bilirubin NEG NEG Urine Urobilinogen NEG NEG Urine Leukocyte Esterase NEG NEG Urine WBC (Auto) 1-5 0-5 /hpf Urine RBC (Auto) 0-4 0-4 /hpf Urine Hyaline Casts (Auto) 0 0-5 /lpf Urine Epithelial Cells (Auto) 5-10 0-5 /lpf Urine Bacteria (Auto) NEG NEG Urine Renal Epithelial Cells 0-5 /lpf Urine Sperm (Auto) PRESENT NOT PRESENT Urine Opiates Screen NEG NEG Urine Methadone, Qualitative NEG NEG Urine Barbiturates NEG NEG Urine Phencyclidine (PCP) Level NEG NEG Ur Amphetamine/Methamphetamine NEG NEG MDMA (Ecstasy) Screen NEG NEG Urine Benzodiazepines Screen POS NEG Urine Cocaine Metabolite NEG NEG Urine Marijuana (THC) POS NEG White Blood Count 24.92 4.8-10.8 K/uL Red Blood Count 4.68 4.7-6.1 M/uL Hemoglobin 15.3 14.0-18.0 g/dL Hematocrit 44.3 42-52 % Mean Corpuscular Volume 94.7 80-100 fL Mean Corpuscular Hemoglobin 32.7 25-34 pg Mean Corpuscular Hemoglobin Concent 34.5 32-36 g/dl Platelet Count 344 130-400 K/uL Mean Platelet Volume 9.7 7.4-10.4 fL RDW Standard Deviation 41.9 36.4-46.3 fL RDW Coefficient of Variation 12.3 11.5-14.5 % Neutrophils % (Manual) 29.6 % Lymphocytes % (Manual) 38.1 % Variant Lymphocytes % (manual) 18.3 % Monocytes % (Manual) 8.7 % Eosinophils % (Manual) 0.9 % Metamyelocytes % 3.5 % Myelocytes % 0.9 % Neutrophils # (Manual) 7.38 1.4-6.5 K/uL Total Absolute Neutrophils 7.38 1.4-6.5 K/uL Lymphocytes # (Manual) 9.49 1.2-3.4 K/uL Absolute Variant Lymphocytes 4.56 K/uL Total Absolute Lymphocytes 14.05 1.2-3.4 K/uL Monocytes # (Manual) 2.17 0.11-0.59 K/uL Eosinophils # (Manual) 0.22 0-0.5 K/uL Metamyelocytes # 0.87 0-0 K/uL Myelocytes # 0.22 0-0 K/uL Red Blood Cell Morphology Unremarkable Prothrombin Time 10.0 9.0-12.0 SECONDS Prothromb Time International Ratio 0.9 0.9-1.1 Activated Partial Thromboplast Time 26.4 21.0-31.0 SECONDS Partial Thromboplastin Ratio 1.0 Sodium Level 137 136-145 mmol/L Potassium Level 3.2 3.5-5.1 mmol/L Chloride Level 103 98-107 mmol/L Carbon Dioxide Level 18 21-32 mmol/L Anion Gap 16.0 3-11 mmol/L Blood Urea Nitrogen 11 7-18 mg/dl Creatinine 1.40 0.60-1.40 mg/dl Estimated GFR () 66.9 Estimated GFR (Non- 57.8 BUN/Creatinine Ratio 8.1 10-20 Random Glucose 304 70-99 mg/dl Calcium Level 8.7 8.5-10.1 mg/dl Phosphorus Level 5.2 2.5-4.9 mg/dl Magnesium Level 2.3 1.8-2.4 mg/dl Total Creatine Kinase 137 39-308 U/L Creatine Kinase MB 2.4 0.5-3.6 ng/ml Creatine Kinase MB Ratio 1.8 0-3.0 Troponin I 0.064 0-0.045 ng/ml Beta-Hydroxybutyric Acid 1.51 0.2-2.81 mg/dL Procalcitonin 0.11 0-0.5 ng/ml Thyroid Stimulating Hormone (TSH) 1.970 0.300-4.500 uIu/ml Bedside Glucose 273 70-99 mg/dl Bedside Lactic Acid Venous 5.00 0.90-1.70 mmol/L Test 10/20/16 05:35 10/20/16 06:14 Range/Units Salicylates Level 2.6 2.8-20 mg/dl Acetaminophen Level 2 10-30 ug/ml Ethyl Alcohol mg/dL < 3.0 0-3 mg/dl Bedside Blood Gas pH (LAB) 7.20 7.35-7.45 Bedside Blood Gas pCO2 (LAB) 64 35-46 mmHg Bedside Blood Gas pO2 (LAB) > 420 80-95 mmHg Bedside Blood Gas HCO3 (LAB) 25 19-24 meq/L Bedside Blood Gas Total CO2 27 24-31 mEq/l Bedside Blood Gas Base Excess (LAB) -3.0 -9-1.8 meq/L Bedside Blood Gas O2 Saturation 100.0 90-95 % Microbiology Results 10/20/16 Blood Culture, Received Pending 10/20/16 Blood Culture, Received Pending Diagnostic Radiology HEAD WITHOUT CONTRAST (CT) CLINICAL HISTORY: 50 years-old Male with seizure, AMS. Acute altered mental status. Initial exam. TECHNIQUE: Multiple axial CT images of the head were obtained without contrast. A dose lowering technique was utilized adhering to the principles of ALARA. CT DOSE: 614.27 mGy.cm COMPARISON: CT head and MRI brain 01/30/2015. FINDINGS: No acute intracranial hemorrhage, midline shift, mass, large territorial ischemia or abnormal extra-axial collection. Encephalomalacia related to remote infarction again seen within the left cerebral hemisphere frontoparietal distribution. There is mild cerebral atrophy. Remote lacunar infarctions of the basal ganglia are unchanged. The calvarium is intact. The paranasal sinuses, mastoid air cells, and middle ear cavities are clear. There is a small right occipital scalp hematoma, 2.8 x 0.6 cm. IMPRESSION: 1. Small right occipital scalp hematoma without acute intracranial abnormality. Negative for hemorrhage or calvarial fracture. 2. Chronic changes as above including remote left frontoparietal infarction. The above report was generated using voice recognition software. It may contain grammatical, syntax or spelling errors. SINGLE VIEW CHEST CLINICAL HISTORY: Change in mental status. Intubation. FINDINGS: An AP, portable, supine chest radiograph is compared to study dated 12/08/2015. The examination is degraded by portable technique and patient rotation. An endotracheal tube has been placed. The tip of the catheter projects 2.8 cm above the lake. The heart is top normal for projection. The pulmonary vasculature is noncongested. There is mild bibasilar atelectasis. No airspace consolidation is seen typical for pneumonia and there is no large pleural effusion. No pneumothorax is seen. The bony thorax is grossly intact. IMPRESSION: 1. An endotracheal tube has been placed. The tip of the catheter projects 2.8 cm above the lake. 2. The lungs are clear. Electronically signed by: Leon Gamino M.D. 10/20/2016 7:09 AM Impression Assessment and Plan 50-year-old male with a past medical history of seizure disorder, stroke, hypertension, diabetes presented to the ER via EMS after status epilepticus. Had received Versed by EMS and was obtunded and unresponsive and eventually intubated. received keppra in ER Unresponsiveness s/p Status epilepticus : likely Secondary to noncompliance to antiseizure medications vs infection vs new stroke - Currently intubated - Versed and propofol for sedation - Head CT: Small right occipital scalp hematoma without acute intracranial abnormality.Negative for hemorrhage or calvarial fracture. 2. Chronic changes as above including remote left frontoparietal infarction. - Consider MRI brain - Consult neurology/EEG - CXR neg for pneumonia - UA, UDS pending - vancomycin and Zosyn for broad spectrum coverage - Keppra and Ativan Elevated troponin/tachycardia - likely sec to demand - trend q8h - echo HTN - hydralazine as needed DM T2: - insulin sliding scale Full code Dispo; admitted to ICU Attending Addendum: I have physically seen and examined this patient, have directed the resident's medical activities, and agree with the H&P as noted above with the following exceptions as noted. The patient presented to the emergency department status post seizure, obtunded , and intubated for airway protection in the ED. HEENT--PERRL, EOMI, mucous membranes and oropharynx dry. Neck--supple, no JVD or bruits, thyroid normal, trachea midline, no adenopathy. Heart--tachycardic and regular no murmurs, rubs or gallops. Lungs--coarse breath sounds bilaterally, no wheeze. Abdomen--normal bowel sounds and soft, nondistended, no hernias or masses, no organomegaly. Extremities--no cyanosis, clubbing or edema. There are good distal pulses b/l. Dermatologic--normal skin turgor, normal color, warm and dry, no rash. Neurologic--limited assessment due to intubation. Rheumatologic--deferred due to sedation and intubation Psychiatric--deferred due to sedation and intubation. Assessment and Plan: Seizure disorder/noncompliant with medications for the past 3 months/marijuana smoked 3 times a day/post ictal, obtunded/intubated for airway protection in the ED-- Admit to the ICU. Propofol infusion and Versed infusion for sedation. CT of head negative. MRI of brain and EEG in the a.m. Vancomycin IV and Zosyn IV empirically for probable aspiration. Keppra 1000 mg IV given in the ED, and will continue at 500 mg IV twice a day. History of Lamictal orally, but not taken for at least 3 months. Adjust ventilator settings-repeat ABG in 1 hour, and every morning. Consult nurses' association counselor. Consult neurology. Elevated troponin/tachycardia-- Supply demand mismatch. Order 2-D echocardiogram with Dopplers. Lopressor 5 g IV every 4 hours with hold parameters. Level of Care Critical Care Advanced Directives Existing Advance Directive: No Existing Living Will: No Existing Power of Film Processing Shift Supervisor: Yes Resuscitation Status FULL RESUSCITATION VTE Prophylaxis VTE Risk Assessment Done? Y/N: Yes Risk Level: High Given or contraindicated: SCD's Note Total Time: Critical Care 30 - 74 minutes Resident Tracking Resident Involvement: Resident Care Provided Care Provided: Adult Hospital Medicine
[2016-10-20] MEDS ORDERED: INSULIN IV INFUSION PROTOCOL STA (09:37)
[2016-10-20] MEDS ORDERED: INSULIN PROTOCOL GOAL RANGE ONE (09:45)
[2016-10-20] MEDS ORDERED: MODERATE STRESS LEVEL ONE (09:45)
--- NOTE | 2016-10-20 10:07 | Neurology Consultation ---
Neurology Consultation Date of Consultation: Oct 20, 2016. Attending Physician: Nilton Olvera M.D. Primary Care Physician: Jimmy Pratt D.O.Int.Med. Reason for Consultation: Seizure History of Present Illness Source: hospital records The patient is a 50-year-old male who is known to me. 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 He has a history of noncompliance with his anticonvulsant therapy which has resulted in breakthrough seizures. The patient has been admitted to the hospital after a witnessed generalized convulsive episode that lasted about 10 minutes. It has been reported that he has been noncompliant with his Lamictal, smoking marijuana, playing video games and sleeping poorly for the past 2-3 days. His seizures resolved with administration of midazolam. He is currently sedated, in the intensive care unit, on the mechanical ventilator. He has been given a 1 g loading dose of Keppra. A serum glucose was 304 at the time of presentation. Electrocardiogram reveals sinus tachycardia, 137 bpm. His troponin is mildly elevated. CKs were normal. Urine drug screen is positive for marijuana metabolites. A Lamictal level is pending. I reviewed the images as well as the radiologist's interpretation of the recently completed CT of the head. The study reveals a chronic left frontoparietal infarct as well as a few chronic basal ganglia lacunar, left greater than right. There is no significant change compared with the previous CT of the head done on January 2015. An electroencephalogram has also been completed this morning. I reviewed the data directly. The study reveals left frontotemporal slowing and sharps with a normal-appearing background alpha rhythm. There is not appear to be ongoing seizure activity at this time. Past Medical/Surgical History Medical Problems: (1) Abdominal pain, left upper quadrant Status: Acute (2) Fever Status: Acute (3) Status epilepticus, generalized convulsive Status: Acute (4) Weakness Status: Acute Family History There is no pertinent family history that would place this patient at increased risk for additional neurological problems or complications in the context of his current illness Father: heart disease, diabetes Social History Smoking Status: Former smoker Drug Use: none Marital Status: single Housing Status: lives with significant other Occupation Status: unemployed, disabled Allergies Coded Allergies: Codeine (Verified Allergy, Mild, HIVES, 12/08/15) Current Inpatient Medications Current Inpatient Medications Medications (Trade) Dose Ordered Sig/Jerson Route Start Time Stop Time Status Last Admin Dose Admin Potassium Chloride/Sodium Chloride 1,000 ml @ 125 mls/hr Q8H IV 10/20/16 08:00 11/19/16 07:59 10/20/16 08:55 125 MLS/HR Lorazepam (Ativan Inj) 1 mg Q2H PRN IV 10/20/16 06:00 11/19/16 05:59 Famotidine 20 mg/ Dextrose 102 ml @ 200 mls/hr Q12H IV 10/20/16 08:00 11/19/16 07:59 10/20/16 08:35 200 MLS/HR Levetiracetam 500 mg/Dextrose 105 ml @ 420 mls/hr Q12 IV 10/20/16 09:00 11/19/16 08:59 10/20/16 08:55 420 MLS/HR Propofol (Diprivan Iv Emulsion 100ml Vial) 1 dose UD IV 10/20/16 08:18 10/23/16 08:17 10/20/16 08:38 1 DOSE Ondansetron HCl (Zofran Inj) 4 mg Q6H PRN IV 10/20/16 06:00 11/19/16 05:59 Insulin Aspart (novoLOG ASPART) SLIDING SCALE If C... ACHS SC 10/20/16 07:00 11/19/16 06:59 10/20/16 08:37 2 UNITS Glucose (Glucose 40% Gel) UD PRN PO 10/20/16 06:00 11/19/16 05:59 Glucose (Glucose Chew Tab) 1 tabs UD PRN PO 10/20/16 06:00 11/19/16 05:59 Dextrose (Dextrose 50% 50ML Syringe) 50 ml UD PRN IV 10/20/16 06:00 11/19/16 05:59 Glucagon (Glucagon Inj) 1 mg UD PRN SQ 10/20/16 06:00 11/19/16 05:59 Piperacillin Sod/ Tazobactam Sod 3.375 gm/Dextrose 115 ml @ 28.75 mls/ hr Q8 IV 10/20/16 06:00 10/27/16 05:59 UNV Vancomycin HCl 1000 mg/Sodium Chloride 270 ml @ 125 mls/hr NOW STAT IV 10/20/16 05:59 10/20/16 08:08 UNV Midazolam HCl 250 ml @ 0 mls/hr Q0M PRN IV 10/20/16 06:11 11/19/16 06:10 10/20/16 06:51 4 MLS/HR Metoprolol Tartrate (Lopressor Iv) 5 mg Q4 IV. 10/20/16 08:00 11/19/16 07:59 10/20/16 08:36 5 MG Hydralazine HCl (HydrALAZINE INJ) 10 mg Q4H PRN IV. 10/20/16 06:30 11/19/16 06:29 Vancomycin HCl (Consult) 1 ea UD PRN N/A 10/20/16 08:30 11/19/16 08:29 Piperacillin Sod/ Tazobactam Sod (Consult) 1 ea UD PRN N/A 10/20/16 08:30 11/19/16 08:29 Insulin Human Regular (Insulin IV Infusion Protocol) 1 ea NOW STAT N/A 10/20/16 09:37 10/20/16 09:38 UNV Insulin Aspart (novoLOG ASPART) SLIDING SCALE PCHS SC 10/20/16 12:00 11/19/16 11:59 UNV Miscellaneous (Insulin Protocol Goal Range (Other)) 1 ea ONE ONCE N/A 10/20/16 09:45 10/20/16 09:46 UNV Miscellaneous (Insulin Protocol Moderate Stress Level) 1 ea ONE ONCE N/A 10/20/16 09:45 10/20/16 09:46 UNV Review of Systems A review of systems cannot be obtained from this patient as he is unresponsive Physical Exam Vital Signs (Past 24 Hrs): Date Time Temp Pulse Resp B/P (MAP) Pulse Ox O2 Delivery O2 Flow Rate FiO2 10/20/16 08:36 102 160/107 10/20/16 08:30 99 20 160/107 (124) 98 10/20/16 08:27 36.8 102 20 169/123 98 Mechanical Ventilator 30 10/20/16 08:00 115 18 174/92 (119) 10/20/16 07:40 40 10/20/16 07:30 24 192/125 (147) 99 10/20/16 07:23 102 22 192/125 100 Mechanical Ventilator 10/20/16 06:56 112 25 99 10/20/16 06:51 110 25 200/129 99 10/20/16 06:46 119 23 98 10/20/16 06:42 201/127 10/20/16 06:41 116 23 100 10/20/16 06:36 109 24 100 10/20/16 06:31 117 27 200/136 100 10/20/16 06:26 98 19 100 10/20/16 06:21 106 13 193/120 100 10/20/16 06:16 103 0 100 10/20/16 06:11 106 3 186/123 100 10/20/16 06:06 104 0 100 10/20/16 06:01 109 0 185/115 100 10/20/16 05:56 118 0 100 10/20/16 05:51 124 0 172/115 97 10/20/16 05:46 133 0 98 10/20/16 05:41 106 0 138/88 97 10/20/16 05:36 115 0 95 10/20/16 05:31 121/84 10/20/16 05:27 108 12 128/97 98 10/20/16 05:25 40 10/20/16 05:22 113 21 97 10/20/16 05:21 135/89 10/20/16 05:17 130 17 97 10/20/16 05:12 121 25 99 10/20/16 05:11 158/113 10/20/16 05:08 182/118 10/20/16 05:07 139 20 100 10/20/16 05:02 136 28 96 10/20/16 05:01 208/128 10/20/16 04:57 132 30 98 10/20/16 04:52 147 30 96 10/20/16 04:51 183/117 10/20/16 04:50 130 183/117 97 Ambu-Bag 10/20/16 04:50 98 10/20/16 04:50 205/120 10/20/16 04:49 135 205/120 98 Non-Rebreather 15.0 10/20/16 04:47 136 15 203/113 98 10/20/16 04:44 137 6 203/113 98 Non-Rebreather 15.0 10/20/16 04:42 136 20 98 10/20/16 04:29 98 Non-Rebreather 15.0 10/20/16 04:29 98 Non-Rebreather 15.0 10/20/16 04:28 137 6 98 Room Air 10/20/16 04:27 136 7 98 10/20/16 04:23 137 10/20/16 04:22 138 3 98 10/20/16 04:15 138 6 194/119 98 Non-Rebreather 15.0 10/20/16 04:00 98 Non-Rebreather 15.0 10/20/16 04:00 37.4 138 8 192/115 96 Non-Rebreather 15.0 A full neurological examination cannot be completed on this patient as he is unresponsive, sedated, and on life support in the ICU. The patient is observed lying quietly in bed. No spontaneous movements are appreciated. Pupils are equal , round, and measure 2 mm in diameter, and react minimally to light. There is no gaze preference. There is no nystagmus. Corneal reflexes intact. Gag reflex intact. Decerebrate posturing is induced with noxious stimulation of the limbs, greater on the right. There is increased extensor tone observed for the right arm and leg as well. Tone for the left arm and leg normal to reduced. Plantar responses are upgoing bilaterally, although more so on the right. Laboratory Results Past 24 Hours: 10/20/16 04:10 Red Blood Count 4.68, Mean Corpuscular Volume 94.7, Mean Corpuscular Hemoglobin 32.7, Mean Corpuscular Hemoglobin Concent 34.5, Mean Platelet Volume 9.7 10/20/16 04:10 Test 10/20/16 04:05 10/20/16 04:10 10/20/16 04:46 10/20/16 05:26 Urine Color YELLOW Urine Appearance CLEAR (CLEAR) Urine pH 5.0 (4.5-7.5) Urine Specific [place] 1.018 (1.000-1.030) Urine Protein 2+ (NEG) Urine Glucose (UA) 2+ (NEG) Urine Ketones NEG (NEG) Urine Occult Blood TRACE (NEG) Urine Nitrite NEG (NEG) Urine Bilirubin NEG (NEG) Urine Urobilinogen NEG (NEG) Urine Leukocyte Esterase NEG (NEG) Urine WBC (Auto) 1-5 /hpf (0-5) Urine RBC (Auto) 0-4 /hpf (0-4) Urine Hyaline Casts (Auto) 0 /lpf (0-5) Urine Epithelial Cells (Auto) 5-10 /lpf (0-5) Urine Bacteria (Auto) NEG (NEG) Urine Renal Epithelial Cells /lpf (0-5) Urine Sperm (Auto) PRESENT (NOT PRESENT) Urine Opiates Screen NEG (NEG) Urine Methadone, Qualitative NEG (NEG) Urine Barbiturates NEG (NEG) Urine Phencyclidine (PCP) Level NEG (NEG) Ur Amphetamine/Methamphetamine NEG (NEG) MDMA (Ecstasy) Screen NEG (NEG) Urine Benzodiazepines Screen POS (NEG) Urine Cocaine Metabolite NEG (NEG) Urine Marijuana (THC) POS (NEG) White Blood Count 24.92 K/uL (4.8-10.8) Red Blood Count 4.68 M/uL (4.7-6.1) Hemoglobin 15.3 g/dL (14.0-18.0) Hematocrit 44.3 % (42-52) Mean Corpuscular Volume 94.7 fL (80-100) Mean Corpuscular Hemoglobin 32.7 pg (25-34) Mean Corpuscular Hemoglobin Concent 34.5 g/dl (32-36) Platelet Count 344 K/uL (130-400) Mean Platelet Volume 9.7 fL (7.4-10.4) RDW Standard Deviation 41.9 fL (36.4-46.3) RDW Coefficient of Variation 12.3 % (11.5-14.5) Neutrophils % (Manual) 29.6 % Lymphocytes % (Manual) 38.1 % Variant Lymphocytes % (manual) 18.3 % Monocytes % (Manual) 8.7 % Eosinophils % (Manual) 0.9 % Metamyelocytes % 3.5 % Myelocytes % 0.9 % Neutrophils # (Manual) 7.38 K/uL (1.4-6.5) Total Absolute Neutrophils 7.38 K/uL (1.4-6.5) Lymphocytes # (Manual) 9.49 K/uL (1.2-3.4) Absolute Variant Lymphocytes 4.56 K/uL Total Absolute Lymphocytes 14.05 K/uL (1.2-3.4) Monocytes # (Manual) 2.17 K/uL (0.11-0.59) Eosinophils # (Manual) 0.22 K/uL (0-0.5) Metamyelocytes # 0.87 K/uL (0-0) Myelocytes # 0.22 K/uL (0-0) Red Blood Cell Morphology Unremarkable Prothrombin Time 10.0 SECONDS (9.0-12.0) Prothromb Time International Ratio 0.9 (0.9-1.1) Activated Partial Thromboplast Time 26.4 SECONDS (21.0-31.0) Partial Thromboplastin Ratio 1.0 Anion Gap 16.0 mmol/L (3-11) Estimated GFR () 66.9 Estimated GFR (Non- 57.8 BUN/Creatinine Ratio 8.1 (10-20) Calcium Level 8.7 mg/dl (8.5-10.1) Phosphorus Level 5.2 mg/dl (2.5-4.9) Magnesium Level 2.3 mg/dl (1.8-2.4) Total Creatine Kinase 137 U/L (39-308) Creatine Kinase MB 2.4 ng/ml (0.5-3.6) Creatine Kinase MB Ratio 1.8 (0-3.0) Troponin I 0.064 ng/ml (0-0.045) Beta-Hydroxybutyric Acid 1.51 mg/dL (0.2-2.81) Procalcitonin 0.11 ng/ml (0-0.5) Thyroid Stimulating Hormone (TSH) 1.970 uIu/ml (0.300-4.500) Bedside Glucose 273 mg/dl (70-99) Bedside Lactic Acid Venous 5.00 mmol/L (0.90-1.70) Test 10/20/16 05:35 10/20/16 06:14 10/20/16 09:35 Salicylates Level 2.6 mg/dl (2.8-20) Acetaminophen Level 2 ug/ml (10-30) Ethyl Alcohol mg/dL < 3.0 mg/dl (0-3) Bedside Blood Gas pH (LAB) 7.20 (7.35-7.45) Bedside Blood Gas pCO2 (LAB) 64 mmHg (35-46) Bedside Blood Gas pO2 (LAB) > 420 mmHg (80-95) Bedside Blood Gas HCO3 (LAB) 25 meq/L (19-24) Bedside Blood Gas Total CO2 27 mEq/l (24-31) Bedside Blood Gas Base Excess (LAB) -3.0 meq/L (-9-1.8) Bedside Blood Gas O2 Saturation 100.0 % (90-95) Impression This is a 50-year-old male with a history of seizure disorder, chronic right hemiparesis, and chronic expressive aphasia related to a remote left MCA territory stroke. He has a history of noncompliance with his anticonvulsants and has been admitted with a prolonged generalized seizure reportedly related to noncompliance with his Lamictal recently. Sleep deprivation and potentially marijuana use may also have been provoking factors with this recent presentation. As described in the history of present illness, the patient remains unresponsive, sedated, and on life support. His seizures have resolved. Plan Case discussed with manager document at bedside. Continue Keppra 500 mg IV every 12 hours. I would restart his Lamictal when he is able to tolerate by mouth intake. Obtain a brain MRI to exclude interval development of stroke or other acute [employer] pathology. Follow-up with official EEG interpretation, to be read by Dr. Voss. I will make further recommendations on an as-needed basis depending on results of the above testing. Greater than 50% of today's 70 minute encounter was spent coordinating care with the manager document, and learning technologist.
--- NOTE | 2016-10-20 10:57 | Critical Care Consultation ---
Critical Care Consultation Date of Consultation: Oct 20, 2016. Attending Physician: Nilton Olvera M.D. Reason for Consultation: Seizure with intubation History of Present Illness Hx obtained from admitting doctor and emergency physician notes as patient is intubated and there is no family at the bedside 50-year-old male with a past medical history of seizure disorder, stroke, hypertension, diabetes presented to the ER via EMS in status epilepticus. Patient caregiver called 911 when the patient started seizing at 3AM this morning. EMS reports the patient having full body shaking for approximately 10 minutes in duration. The patient was given 5mg of versed nasally by EMS which did control his seizures. There was no tongue biting, or bowel/bladder incontinence during the episode. The patient did fall from his wheelchair as the seizure began. Upon arrival to the ED patient was on a non rebreather. He appeared obtunded, was non responsive to sternal rub, was pale and was grunting. It was decided by the ED physician to intubate the patient in order to protect his airway. 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 The patient was started on Keppra IV in the ED. Neurology were consulted for further management. In the ED the patient was also found to have a WCC of 25 and was started on vanc and pip-tazo. He also had a small bump in his troponin to .064 likely from demand ischaemia. Per the patient's caregiver the patient had stopped using his antiseizure medications along with rest of his medications about 3 months ago and had been using marijuana about 3 times a day. The patient also has a history of seizures that are triggered after urinary tract infection in November 2015. He also noted that the patient had not been sleeping well and had been awake for 36-48 hours and had been playing computer games. In the ED the caregiver stated that the patient had not complained about any any recent fevers or chills, upper respiratory tract infections, nausea or vomiting or abdominal pain. Family History Patient reports no known family medical history. Social History Smoking Status: Current Every Day Smoker Drug Use: none Marital Status: single Housing Status: lives with significant other Occupation Status: unemployed, disabled Allergies Coded Allergies: Codeine (Verified Allergy, Mild, HIVES, 12/08/15) Home Medications Scheduled Aspirin (Aspirin Ec), 325 MG PO QAM Atorvastatin (Lipitor), 80 MG PO QPM Carvedilol (Coreg), 12.5 MG PO BID Cholecalciferol (Vitamin D3), 2,000 UNITS PO DAILY Diazepam (Anticonvulsant) (Diastat Acudial), 1 DOSE [place] PRN/SEIZURE Fluoxetine Hcl (Prozac), 80 MG PO QAM Gabapentin (Neurontin), 800 MG PO TID Lamotrigine (Lamictal), 250 MG PO BID Lisinopril (Zestril), 5 MG PO DAILY Omeprazole (Prilosec), 40 MG PO DAILY Quetiapine Fumarate (Seroquel), 300 MG PO HS Thiamine Hcl (Vitamin B-1), 100 MG PO QAM Scheduled PRN Methocarbamol (Robaxin), 500 MG PO TID PRN for MUSCLE SPASMS Promethazine Hcl (Phenergan), 25 MG PO TID PRN for Nausea Current Inpatient Medications Current Inpatient Medications Medications (Trade) Dose Ordered Sig/Jerson Route Start Time Stop Time Status Last Admin Dose Admin Potassium Chloride/Sodium Chloride 1,000 ml @ 125 mls/hr Q8H IV 10/20/16 08:00 11/19/16 07:59 10/20/16 08:55 125 MLS/HR Lorazepam (Ativan Inj) 1 mg Q2H PRN IV 10/20/16 06:00 11/19/16 05:59 Famotidine 20 mg/ Dextrose 102 ml @ 200 mls/hr Q12H IV 10/20/16 08:00 11/19/16 07:59 10/20/16 08:35 200 MLS/HR Levetiracetam 500 mg/Dextrose 105 ml @ 420 mls/hr Q12 IV 10/20/16 09:00 11/19/16 08:59 10/20/16 08:55 420 MLS/HR Propofol (Diprivan Iv Emulsion 100ml Vial) 1 dose UD IV 10/20/16 08:18 10/23/16 08:17 10/20/16 08:38 1 DOSE Ondansetron HCl (Zofran Inj) 4 mg Q6H PRN IV 10/20/16 06:00 11/19/16 05:59 Insulin Aspart (novoLOG ASPART) SLIDING SCALE If C... ACHS SC 10/20/16 07:00 11/19/16 06:59 10/20/16 08:37 2 UNITS Glucose (Glucose 40% Gel) UD PRN PO 10/20/16 06:00 11/19/16 05:59 Glucose (Glucose Chew Tab) 1 tabs UD PRN PO 10/20/16 06:00 11/19/16 05:59 Dextrose (Dextrose 50% 50ML Syringe) 50 ml UD PRN IV 10/20/16 06:00 11/19/16 05:59 Glucagon (Glucagon Inj) 1 mg UD PRN SQ 10/20/16 06:00 11/19/16 05:59 Piperacillin Sod/ Tazobactam Sod 3.375 gm/Dextrose 115 ml @ 28.75 mls/ hr Q8 IV 10/20/16 06:00 10/27/16 05:59 UNV Vancomycin HCl 1000 mg/Sodium Chloride 270 ml @ 125 mls/hr NOW STAT IV 10/20/16 05:59 10/20/16 08:08 UNV Midazolam HCl 250 ml @ 0 mls/hr Q0M PRN IV 10/20/16 06:11 11/19/16 06:10 10/20/16 06:51 4 MLS/HR Metoprolol Tartrate (Lopressor Iv) 5 mg Q4 IV. 10/20/16 08:00 11/19/16 07:59 10/20/16 08:36 5 MG Hydralazine HCl (HydrALAZINE INJ) 10 mg Q4H PRN IV. 10/20/16 06:30 11/19/16 06:29 Vancomycin HCl (Consult) 1 ea UD PRN N/A 10/20/16 08:30 11/19/16 08:29 Piperacillin Sod/ Tazobactam Sod (Consult) 1 ea UD PRN N/A 10/20/16 08:30 11/19/16 08:29 Insulin Human Regular (Insulin IV Infusion Protocol) 1 ea NOW STAT N/A 10/20/16 09:37 10/20/16 09:38 UNV Insulin Aspart (novoLOG ASPART) SLIDING SCALE [facility] SC 10/20/16 12:00 11/19/16 11:59 UNV Miscellaneous (Insulin Protocol Goal Range (Other)) 1 ea ONE ONCE N/A 10/20/16 09:45 10/20/16 09:46 UNV Miscellaneous (Insulin Protocol Moderate Stress Level) 1 ea ONE ONCE N/A 10/20/16 09:45 10/20/16 09:46 UNV Review of Systems Unable to obtain ROS as the patient in intubated Physical Exam Date Time Temp Pulse Resp B/P (MAP) Pulse Ox O2 Delivery O2 Flow Rate FiO2 10/20/16 08:36 102 160/107 10/20/16 08:30 99 20 160/107 (124) 98 10/20/16 08:27 36.8 102 20 169/123 98 Mechanical Ventilator 30 10/20/16 08:00 115 18 174/92 (119) 10/20/16 07:40 40 10/20/16 07:30 24 192/125 (147) 99 10/20/16 07:23 102 22 192/125 100 Mechanical Ventilator 10/20/16 06:56 112 25 99 10/20/16 06:51 110 25 200/129 99 10/20/16 06:46 119 23 98 10/20/16 06:42 201/127 10/20/16 06:41 116 23 100 10/20/16 06:36 109 24 100 10/20/16 06:31 117 27 200/136 100 10/20/16 06:26 98 19 100 10/20/16 06:21 106 13 193/120 100 10/20/16 06:16 103 0 100 10/20/16 06:11 106 3 186/123 100 10/20/16 06:06 104 0 100 10/20/16 06:01 109 0 185/115 100 10/20/16 05:56 118 0 100 10/20/16 05:51 124 0 172/115 97 10/20/16 05:46 133 0 98 10/20/16 05:41 106 0 138/88 97 10/20/16 05:36 115 0 95 10/20/16 05:31 121/84 10/20/16 05:27 108 12 128/97 98 10/20/16 05:25 40 10/20/16 05:22 113 21 97 10/20/16 05:21 135/89 10/20/16 05:17 130 17 97 10/20/16 05:12 121 25 99 10/20/16 05:11 158/113 10/20/16 05:08 182/118 10/20/16 05:07 139 20 100 10/20/16 05:02 136 28 96 10/20/16 05:01 208/128 10/20/16 04:57 132 30 98 10/20/16 04:52 147 30 96 10/20/16 04:51 183/117 10/20/16 04:50 130 183/117 97 Ambu-Bag 10/20/16 04:50 98 10/20/16 04:50 205/120 10/20/16 04:49 135 205/120 98 Non-Rebreather 15.0 10/20/16 04:47 136 15 203/113 98 10/20/16 04:44 137 6 203/113 98 Non-Rebreather 15.0 10/20/16 04:42 136 20 98 10/20/16 04:29 98 Non-Rebreather 15.0 10/20/16 04:29 98 Non-Rebreather 15.0 10/20/16 04:28 137 6 98 Room Air 10/20/16 04:27 136 7 98 10/20/16 04:23 137 10/20/16 04:22 138 3 98 10/20/16 04:15 138 6 194/119 98 Non-Rebreather 15.0 10/20/16 04:00 98 Non-Rebreather 15.0 10/20/16 04:00 37.4 138 8 192/115 96 Non-Rebreather 15.0 General Appearance: no apparent distress, other (patient appears disheveled and had endotracheal tube in place) Head: normocephalic Neck: trachea midline, no stridor, supple, no lymphadenopathy, no meningismus, no nuchal rigidity Respiratory: breath sounds normal, clear to auscultation Cardiovasular: regular rate/rhythm, no murmur, no rub, no JVD, normal peripheral pulses Abdomen: non tender, normal bowel sounds, no rebound, no masses Upper Extremities: other (Right upper extremity (rotated medially; the forearm is extended and pronated) hand is clenched) Pulses: carotid (R) (2+), carotid (L) (2+), radial (R) (2+), radial (L) (2+), dorsalis pedis (R) (2+), dorsalis pedis (L) (2+) Neuro: other (unable to do official neuro exam as patient sedated and intubated (able to flex and extend upper and lower extremities without difficulty)) Reflexes: patellar (R) (2+), patellar (L) (2+) Laboratory Results Last 24 Hours Test 10/20/16 04:05 10/20/16 04:10 10/20/16 04:46 10/20/16 05:26 Urine Color YELLOW Urine Appearance CLEAR Urine pH 5.0 Urine Specific [place] 1.018 Urine Protein 2+ Urine Glucose (UA) 2+ Urine Ketones NEG Urine Occult Blood TRACE Urine Nitrite NEG Urine Bilirubin NEG Urine Urobilinogen NEG Urine Leukocyte Esterase NEG Urine WBC (Auto) 1-5 /hpf Urine RBC (Auto) 0-4 /hpf Urine Hyaline Casts (Auto) 0 /lpf Urine Epithelial Cells (Auto) 5-10 /lpf Urine Bacteria (Auto) NEG Urine Renal Epithelial Cells /lpf Urine Sperm (Auto) PRESENT Urine Opiates Screen NEG Urine Methadone, Qualitative NEG Urine Barbiturates NEG Urine Phencyclidine (PCP) Level NEG Ur Amphetamine/Methamphetamine NEG MDMA (Ecstasy) Screen NEG Urine Benzodiazepines Screen POS Urine Cocaine Metabolite NEG Urine Marijuana (THC) POS White Blood Count 24.92 K/uL Red Blood Count 4.68 M/uL Hemoglobin 15.3 g/dL Hematocrit 44.3 % Mean Corpuscular Volume 94.7 fL Mean Corpuscular Hemoglobin 32.7 pg Mean Corpuscular Hemoglobin Concent 34.5 g/dl Platelet Count 344 K/uL Mean Platelet Volume 9.7 fL RDW Standard Deviation 41.9 fL RDW Coefficient of Variation 12.3 % Neutrophils % (Manual) 29.6 % Lymphocytes % (Manual) 38.1 % Variant Lymphocytes % (manual) 18.3 % Monocytes % (Manual) 8.7 % Eosinophils % (Manual) 0.9 % Metamyelocytes % 3.5 % Myelocytes % 0.9 % Neutrophils # (Manual) 7.38 K/uL Total Absolute Neutrophils 7.38 K/uL Lymphocytes # (Manual) 9.49 K/uL Absolute Variant Lymphocytes 4.56 K/uL Total Absolute Lymphocytes 14.05 K/uL Monocytes # (Manual) 2.17 K/uL Eosinophils # (Manual) 0.22 K/uL Metamyelocytes # 0.87 K/uL Myelocytes # 0.22 K/uL Red Blood Cell Morphology Unremarkable Prothrombin Time 10.0 SECONDS Prothromb Time International Ratio 0.9 Activated Partial Thromboplast Time 26.4 SECONDS Partial Thromboplastin Ratio 1.0 Sodium Level 137 mmol/L Potassium Level 3.2 mmol/L Chloride Level 103 mmol/L Carbon Dioxide Level 18 mmol/L Anion Gap 16.0 mmol/L Blood Urea Nitrogen 11 mg/dl Creatinine 1.40 mg/dl Estimated GFR () 66.9 Estimated GFR (Non- 57.8 BUN/Creatinine Ratio 8.1 Random Glucose 304 mg/dl Calcium Level 8.7 mg/dl Phosphorus Level 5.2 mg/dl Magnesium Level 2.3 mg/dl Total Creatine Kinase 137 U/L Creatine Kinase MB 2.4 ng/ml Creatine Kinase MB Ratio 1.8 Troponin I 0.064 ng/ml Beta-Hydroxybutyric Acid 1.51 mg/dL Procalcitonin 0.11 ng/ml Thyroid Stimulating Hormone (TSH) 1.970 uIu/ml Bedside Glucose 273 mg/dl Bedside Lactic Acid Venous 5.00 mmol/L Test 10/20/16 05:35 10/20/16 06:14 10/20/16 09:35 Salicylates Level 2.6 mg/dl Acetaminophen Level 2 ug/ml Ethyl Alcohol mg/dL < 3.0 mg/dl Bedside Blood Gas pH (LAB) 7.20 Bedside Blood Gas pCO2 (LAB) 64 mmHg Bedside Blood Gas pO2 (LAB) > 420 mmHg Bedside Blood Gas HCO3 (LAB) 25 meq/L Bedside Blood Gas Total CO2 27 mEq/l Bedside Blood Gas Base Excess (LAB) -3.0 meq/L Bedside Blood Gas O2 Saturation 100.0 % Assessment & Plan 50-year-old male with a past medical history of seizure disorder, stroke, hypertension, diabetes presented to the ER via EMS after status epilepticus. He was intubated in the ED and is receiving Keppra IV for seizures. Patient has been non compliant with medications which is the likely reason for his seizure. NEURO Intubated with propofol and versed for sedation Head CT negative for acute intracranial abnormality, however does show old left frontoparietal infarct Neurology consulted and suggest MRI brain Patient with seizure disorder and currently receiving keppra IV bid Ativan at the bedside PRN for anxiety Patient likely had seizure due to non-compliance with medications Patient with history of stroke with residual right sided weakness, aspirin and lipitor held ID Patient with WCC of 24.92 in the ED, was afebrile UA without any source of infection and CXR clear, no meningeal signs on exam On Vanc and Pip-Tazo with blood cultures pending Lactic Acid 2.6, will continue to follow Will continue to monitor vitals and WCC for ongoing infection CARDIAC Patient with history of hypertension Takes Carvedilol and Lisinopril at home, currently held Currently receiving metoprolol q4 and hydralazine for systolic BP>160 Troponin .064 and will continue to trend Monitor on telemetry Patient with hx of stroke, aspirin and statin held Echo ordered RENAL Potassium 3.2 on admission, will administer 40meq and follow Creatinine 1.4 and GFR 58 PSYCH Patient wheelchair bound Positive for marijuana in drug screen (opiates + but unsure if iatrogen from benzo administration prior to ED) Patient on Seroquel, Lamictal and Prozac (unsure of official diagnosis, will need to talk caregiver and look through old records) Lamictal level ordered Uncompliance with medications, due to worsening depression? will likely need psych referral when more clinically stable ENDO T2DM BSG 304 and 273 Patient started on Insulin infusion with range of 140-180 Does not appear to be on medication on home med list HbA1c 5.7 earlier this year in April, will repeat GI Patient currently NPO Famotidine for GI prophylaxis LFT's wnl DVT Prophylaxis Lovenox SubQ FULL CODE
--- NOTE | 2016-10-20 11:19 | DIAGNOSTIC IMAGING REPORT ---
ORBITS FOR MRI HISTORY: pre-MRI screening. COMPARISON: None. FINDINGS: There are no radiopaque foreign bodies identified within the orbits. IMPRESSION: No radiopaque foreign bodies identified within the orbits. The above report was generated using voice recognition software. It may contain grammatical, syntax or spelling errors. Electronically signed by: Viral Sullivan M.D. 10/20/2016 11:18 AM Dictated Date/Time: 10/20/2016 11:17 AM
--- NOTE | 2016-10-20 11:51 | DIAGNOSTIC IMAGING REPORT ---
[facility] CLINICAL HISTORY: MRI brain tube position COMPARISON STUDY: 12/09/2015 FINDINGS: Nasogastric tube within the distal stomach. Nonobstructive bowel pattern. No radiopaque foreign bodies. IMPRESSION: Nonobstructive bowel pattern. Nasogastric tube distal stomach. No radiopaque foreign bodies. The above report was generated using voice recognition software. It may contain grammatical, syntax or spelling errors. Electronically signed by: Viral Sullivan M.D. 10/20/2016 11:49 AM Dictated Date/Time: 10/20/2016 11:48 AM
[2016-10-20 12:01] LABS: ESTIMATED AVERAGE GLUCOSE 97 mg/dl; HA1C FLAG Normal (Normal)
--- NOTE | 2016-10-20 12:25 | EEG Procedure Note ---
EEG Procedure Note Date of Service Oct 20, 2016. Start / End Times Start Time: 8:55 AM End Time: 9:15 AM Referring Physician Nilton Olvera History This is a 50-year-old male who presents with seizure-like activity and unresponsiveness. EEG for further evaluation of possible seizure etiology. History of epilepsy and noncompliance with medication. Home Medication List Scheduled Aspirin (Aspirin Ec), 325 MG PO QAM Atorvastatin (Lipitor), 80 MG PO QPM Carvedilol (Coreg), 12.5 MG PO BID Cholecalciferol (Vitamin D3), 2,000 UNITS PO DAILY Diazepam (Anticonvulsant) (Diastat Acudial), 1 DOSE [place] PRN/SEIZURE Fluoxetine Hcl (Prozac), 80 MG PO QAM Gabapentin (Neurontin), 800 MG PO TID Lamotrigine (Lamictal), 250 MG PO BID Lisinopril (Zestril), 5 MG PO DAILY Omeprazole (Prilosec), 40 MG PO DAILY Quetiapine Fumarate (Seroquel), 300 MG PO HS Thiamine Hcl (Vitamin B-1), 100 MG PO QAM Scheduled PRN Methocarbamol (Robaxin), 500 MG PO TID PRN for MUSCLE SPASMS Promethazine Hcl (Phenergan), 25 MG PO TID PRN for Nausea Inpatient Medication List Current Inpatient Medications Medications (Trade) Dose Ordered Sig/Jerson Route Start Time Stop Time Status Last Admin Dose Admin Potassium Chloride/Sodium Chloride 1,000 ml @ 125 mls/hr Q8H IV 10/20/16 08:00 11/19/16 07:59 10/20/16 08:55 125 MLS/HR Lorazepam (Ativan Inj) 1 mg Q2H PRN IV 10/20/16 06:00 11/19/16 05:59 Famotidine 20 mg/ Dextrose 102 ml @ 200 mls/hr Q12H IV 10/20/16 08:00 11/19/16 07:59 10/20/16 08:35 200 MLS/HR Levetiracetam 500 mg/Dextrose 105 ml @ 420 mls/hr Q12 IV 10/20/16 09:00 11/19/16 08:59 10/20/16 08:55 420 MLS/HR Propofol (Diprivan Iv Emulsion 100ml Vial) 1 dose UD IV 10/20/16 08:18 10/23/16 08:17 10/20/16 08:38 1 DOSE Ondansetron HCl (Zofran Inj) 4 mg Q6H PRN IV 10/20/16 06:00 11/19/16 05:59 Glucose (Glucose 40% Gel) UD PRN PO 10/20/16 06:00 11/19/16 05:59 Glucose (Glucose Chew Tab) 1 tabs UD PRN PO 10/20/16 06:00 11/19/16 05:59 Dextrose (Dextrose 50% 50ML Syringe) 50 ml UD PRN IV 10/20/16 06:00 11/19/16 05:59 Glucagon (Glucagon Inj) 1 mg UD PRN SQ 10/20/16 06:00 11/19/16 05:59 Piperacillin Sod/ Tazobactam Sod 4.5 gm/Dextrose 120 ml @ 30 mls/hr Q8H IV 10/20/16 12:00 10/27/16 11:59 Vancomycin HCl 1250 mg/Sodium Chloride 275 ml @ 125 mls/hr Q12H IV 10/20/16 18:00 10/27/16 17:59 Midazolam HCl 250 ml @ 0 mls/hr Q0M PRN IV 10/20/16 06:11 11/19/16 06:10 10/20/16 06:51 4 MLS/HR Metoprolol Tartrate (Lopressor Iv) 5 mg Q4 IV. 10/20/16 08:00 11/19/16 07:59 10/20/16 08:36 5 MG Hydralazine HCl (HydrALAZINE INJ) 10 mg Q4H PRN IV. 10/20/16 06:30 11/19/16 06:29 Vancomycin HCl (Consult) 1 ea UD PRN N/A 10/20/16 08:30 11/19/16 08:29 Piperacillin Sod/ Tazobactam Sod (Consult) 1 ea UD PRN N/A 10/20/16 08:30 11/19/16 08:29 Insulin Aspart (novoLOG ASPART) SLIDING SCALE [facility] SC 10/20/16 12:00 11/19/16 11:59 Atorvastatin Calcium (Lipitor Tab) 80 mg QAM PO 10/21/16 09:00 11/20/16 08:59 Carvedilol (Coreg Tab) 6.25 mg BID PO 10/20/16 21:00 11/19/16 20:59 Potassium Chloride 10 meq/ Prmx 100 ml @ 100 mls/hr Q1H IV 10/20/16 11:30 10/20/16 15:29 Enoxaparin Sodium (Lovenox Inj) 40 mg QAM SQ 10/21/16 09:00 11/20/16 08:59 Description This is a 21 electrode EEG with a single channel dedicated to limited EKG. The electrodes were placed in accordance with the International 10-20 system. At the start of this recording the patient was unresponsive and intubated. Background was well organized with an anterior to posterior gradient. Background was composed of moderate amplitude mix of alpha and beta frequency with near continuous left frontotemporal slowing. There was a moderate amplitude well formed posterior dominant rhythm of 10 Hz. Hyperventilation was not done. Photic stimulation at various frequencies did not produce any abnormalities. Reported episodes noted by aircraft maintenance technician of head jerking and posturing that were not well visualized on the video did not have any EEG correlation. Interpretation This is an abnormal routine EEG secondary to near continuous left frontotemporal theta slowing. There was no electrographic seizures or epileptiform discharges. Clinical Correlation This EEG indicates a structural or functional cerebral dysfunction and left frontotemporal area.
--- NOTE | 2016-10-20 12:34 | Pharmacy Progress Note ---
Pharmacy Antibiotic Consult Date of Service: Oct 20, 2016. Pharmacy Dosing Scope Pharmacy is consulted to initiate Vancomycin/Zosyn IV dosing therapy, order appropriate labs and adjust drug dose/frequency. Subjective The patient is a 50 year old male admitted on Oct 20, 2016 at 06:05. Objective Height (Feet): 5 Height (Inches): 11.00 Weight (Kilograms): 81.000 Lab Results (24hrs): Test 10/20/16 04:05 10/20/16 04:10 10/20/16 04:46 10/20/16 05:26 Urine Color YELLOW Urine Appearance CLEAR (CLEAR) Urine pH 5.0 (4.5-7.5) Urine Specific [place] 1.018 (1.000-1.030) Urine Protein 2+ (NEG) Urine Glucose (UA) 2+ (NEG) Urine Ketones NEG (NEG) Urine Occult Blood TRACE (NEG) Urine Nitrite NEG (NEG) Urine Bilirubin NEG (NEG) Urine Urobilinogen NEG (NEG) Urine Leukocyte Esterase NEG (NEG) Urine WBC (Auto) 1-5 /hpf (0-5) Urine RBC (Auto) 0-4 /hpf (0-4) Urine Hyaline Casts (Auto) 0 /lpf (0-5) Urine Epithelial Cells (Auto) 5-10 /lpf (0-5) Urine Bacteria (Auto) NEG (NEG) Urine Renal Epithelial Cells /lpf (0-5) Urine Sperm (Auto) PRESENT (NOT PRESENT) Urine Opiates Screen NEG (NEG) Urine Methadone, Qualitative NEG (NEG) Urine Barbiturates NEG (NEG) Urine Phencyclidine (PCP) Level NEG (NEG) Ur Amphetamine/Methamphetamine NEG (NEG) MDMA (Ecstasy) Screen NEG (NEG) Urine Benzodiazepines Screen POS (NEG) Urine Cocaine Metabolite NEG (NEG) Urine Marijuana (THC) POS (NEG) White Blood Count 24.92 K/uL (4.8-10.8) Red Blood Count 4.68 M/uL (4.7-6.1) Hemoglobin 15.3 g/dL (14.0-18.0) Hematocrit 44.3 % (42-52) Mean Corpuscular Volume 94.7 fL (80-100) Mean Corpuscular Hemoglobin 32.7 pg (25-34) Mean Corpuscular Hemoglobin Concent 34.5 g/dl (32-36) Platelet Count 344 K/uL (130-400) Mean Platelet Volume 9.7 fL (7.4-10.4) RDW Standard Deviation 41.9 fL (36.4-46.3) RDW Coefficient of Variation 12.3 % (11.5-14.5) Neutrophils % (Manual) 29.6 % Lymphocytes % (Manual) 38.1 % Variant Lymphocytes % (manual) 18.3 % Monocytes % (Manual) 8.7 % Eosinophils % (Manual) 0.9 % Metamyelocytes % 3.5 % Myelocytes % 0.9 % Neutrophils # (Manual) 7.38 K/uL (1.4-6.5) Total Absolute Neutrophils 7.38 K/uL (1.4-6.5) Lymphocytes # (Manual) 9.49 K/uL (1.2-3.4) Absolute Variant Lymphocytes 4.56 K/uL Total Absolute Lymphocytes 14.05 K/uL (1.2-3.4) Monocytes # (Manual) 2.17 K/uL (0.11-0.59) Eosinophils # (Manual) 0.22 K/uL (0-0.5) Metamyelocytes # 0.87 K/uL (0-0) Myelocytes # 0.22 K/uL (0-0) Blood Smear Review Red Blood Cell Morphology Unremarkable Prothrombin Time 10.0 SECONDS (9.0-12.0) Prothromb Time International Ratio 0.9 (0.9-1.1) Activated Partial Thromboplast Time 26.4 SECONDS (21.0-31.0) Partial Thromboplastin Ratio 1.0 Sodium Level 137 mmol/L (136-145) Potassium Level 3.2 mmol/L (3.5-5.1) Chloride Level 103 mmol/L (98-107) Carbon Dioxide Level 18 mmol/L (21-32) Anion Gap 16.0 mmol/L (3-11) Blood Urea Nitrogen 11 mg/dl (7-18) Creatinine 1.40 mg/dl (0.60-1.40) Estimated GFR () 66.9 Estimated GFR (Non- 57.8 BUN/Creatinine Ratio 8.1 (10-20) Random Glucose 304 mg/dl (70-99) Calcium Level 8.7 mg/dl (8.5-10.1) Phosphorus Level 5.2 mg/dl (2.5-4.9) Magnesium Level 2.3 mg/dl (1.8-2.4) Total Bilirubin 0.4 mg/dl (0.2-1) Direct Bilirubin 0.1 mg/dl (0-0.2) Aspartate Amino Transf (AST/SGOT) 28 U/L (15-37) Alanine Aminotransferase (ALT/SGPT) 21 U/L (12-78) Alkaline Phosphatase 131 U/L (45-117) Total Creatine Kinase 137 U/L (39-308) Creatine Kinase MB 2.4 ng/ml (0.5-3.6) Creatine Kinase MB Ratio 1.8 (0-3.0) Troponin I 0.064 ng/ml (0-0.045) Total Protein 7.7 gm/dl (6.4-8.2) Albumin 4.5 gm/dl (3.4-5.0) Beta-Hydroxybutyric Acid 1.51 mg/dL (0.2-2.81) Procalcitonin 0.11 ng/ml (0-0.5) Thyroid Stimulating Hormone (TSH) 1.970 uIu/ml (0.300-4.500) Bedside Glucose 273 mg/dl (70-99) Bedside Lactic Acid Venous 5.00 mmol/L (0.90-1.70) Test 10/20/16 05:35 10/20/16 06:14 10/20/16 09:35 Salicylates Level 2.6 mg/dl (2.8-20) Acetaminophen Level 2 ug/ml (10-30) Ethyl Alcohol mg/dL < 3.0 mg/dl (0-3) Bedside Blood Gas pH (LAB) 7.20 (7.35-7.45) Bedside Blood Gas pCO2 (LAB) 64 mmHg (35-46) Bedside Blood Gas pO2 (LAB) > 420 mmHg (80-95) Bedside Blood Gas HCO3 (LAB) 25 meq/L (19-24) Bedside Blood Gas Total CO2 27 mEq/l (24-31) Bedside Blood Gas Base Excess (LAB) -3.0 meq/L (-9-1.8) Bedside Blood Gas O2 Saturation 100.0 % (90-95) Estimated Average Glucose 97 mg/dl Hemoglobin A1c 5.0 % (4.5-5.6) Lactic Acid Level 2.6 mmol/L (0.4-2.0) Micro Results: Item Value Date Time MRSA DNA Surveillance Screen - Final Complete 10/20/16 0820 Nasal Specimen Negative for MRSA by DNA Probe Blood Culture Received 10/20/16 0535 Blood Pending Blood Culture Received 10/20/16 0516 Blood Pending Assessment & Plan ASSESSMENT: * Mr Gardner is a 50yo male admitted in status epilepticus. * PMH includes seizure disorder, stroke, HTN, DM. * pt has been noncompliant w/meds for ~3 months * WBC elevated on admission (24.9), lactic acid 5.0, afebrile, procalcitonin 0.11 * Patient initiated on broad-spectrum empiric abx. Cultures are pending. UA not suggestive of infx. PLAN: Vancomycin: * Loading dose: Vanc 2000 mg (~25mg/kg) IV X 1 dose then: * Vanc 1250 mg (~15mg/kg) IV every 12 hours. * Estimated p'kinetic parameters (based on CrCl ~ 66mL/min, SCr 1.4): * Ke ~ 0.059/hr t1/2 ~ 11.7hr * Goal trough level estimate: between 15 - 20 mcg/mL. * Trough level has been ordered for: 10/22/16 prior to the 4th maintenance dose Zosyn: * Zosyn 4.5gm IV x1 dose over 30 min, then * Zosyn 4.5gm IV q8h extended 4-hr infusion * more aggressive regimen recommended if: critically ill, obese with BMI 35 or above, cystic fibrosis, LEANN > 16 g/mL Pharmacy will continue to follow and will adjust dose/frequency as necessary. Thank you
[2016-10-20] MEDS: POTASSIUM CHLR 10MEQ / WTR IV SCH ×4 (13:09→17:45)
[2016-10-20] MEDS: PIPERACILL/TAZOBAC IV 4.5 GM in DEXTROSE 5% 100ML 100 ML IV SCH ×2 (13:10→22:25)
--- NOTE | 2016-10-20 13:13 | DIAGNOSTIC IMAGING REPORT ---
BRAIN WITHOUT CONTRAST HISTORY: 50 years-old Male Seizure and hx of stroke (patient on vent, respiratory notified) generalized convulsions with status epilepticus. Follow-up study. COMPARISON: CT head 10/20/2016, MRI brain 01/30/2015. TECHNIQUE: Multiplanar multisequence MRI of the brain was obtained without IV contrast. FINDINGS: There is no restricted diffusion to suggest acute ischemia. The midline structures including the corpus callosum, brainstem, optic chiasm, pituitary and peroneal glands are unremarkable. No cerebellar tonsillar herniation. There is background mild cerebral atrophy. Remote infarction of the left MCA distribution, primarily involving the left parietal lobe and to lesser extent the left frontal and temporal lobes again noted with surrounding gliosis, peripheral hemosiderin staining and associated encephalomalacia. Multiple remote lacunar infarctions within the basal ganglia are again seen. There is no acute intracranial hemorrhage, midline shift or abnormal extra-axial collections. No intracranial mass. There is moderate asymmetric atrophy with slightly increased FLAIR signal involving the left hippocampus as seen on image 14 of the coronal T2 series and image 18 of the thin section series. The major flow voids at the skull base are patent. Orbits are symmetric. Small bilateral mastoid effusions. Moderate mucosal disease involves the ethmoid sinuses. There is mild maxillary and sphenoid sinus disease. IMPRESSION: 1. No acute intracranial hemorrhage or acute ischemia. 2. 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 3. Chronic left cerebral hemisphere infarction with background atrophy and multiple remote basal ganglia lacunar infarctions. The above report was generated using voice recognition software. It may contain grammatical, syntax or spelling errors. Electronically signed by: Sherman Silverio M.D. 10/20/2016 1:12 PM Dictated Date/Time: 10/20/2016 12:58 PM
[2016-10-20] MEDS ORDERED: ETOMIDATE 2 MG/ML 20 ML VIAL IV ONE (13:58)
[2016-10-20] MEDS ORDERED: ROCURONIUM BROMIDE 10 MG/ML 10 ML VIAL IV ONE (13:58)
[2016-10-20] MEDS ORDERED: SUCCINYLCHOLINE CHLORIDE 20 MG/ML 10 ML VIAL IV ONE (13:58)
[2016-10-20] MEDS: HydrALAZINE HCL 20 MG/ML VIAL IV. PRN (17:45)
[2016-10-20] MEDS: INSULIN ASPART 100 UNITS/ML 3 ML PEN SC SCH ×2 (17:47→23:49)
[2016-10-20] MEDS: VANCOMYCIN INJ 1,250 MG in SODIUM CHLORIDE 0.9% 250ML 250 ML IV SCH (17:47)
--- NOTE | 2016-10-20 18:01 | ECHOCARDIOGRAM REPORT ---
*NOTICE TO RECEIVING REPUBLICAN AGENCY This information is strictly Confidential and protected under [place] law. [place] law prohibits you from making any further disclosure of this information unless further disclosure is expressly permitted by the written consent of the person to whom it pertains or is authorized by law. A general authorization for the release of medical or other information is not sufficient for this purpose. Hospital accepts no responsibility if the information is made available to any other person, INCLUDING THE PATIENT. Interpretation Summary * Name: TACHO DEAL Study Date: 10/20/2016 02:15 PM BP: 186/126 mmHg * Patient [facility]: [facility] HR: 82 * : 1965 (M/d/yyyy) Gender: Male Height: 71 in * Age: 50 yrs Ethnicity: CA Weight: 175 lb * Referring Physician: ADELA * Performed By: Drew Lambert RCS * * Reason For Study: Elevated Troponin, Intubated for Airway Protection * BSA: 2.0 m2 * -- Conclusions -- * 1. Top-normal left ventricular size with moderately to severely reduced systolic function. EF 30-35%. Akinesis of the apex, distal septum, distal inferior wall, basal septum, and basal inferior wall segments. Otherwise, global hypokinesis. No left ventricular hypertrophy. * 2. Normal right ventricular size with mildly reduced systolic function. * 3. There is mild mitral regurgitation. * 4. Technically difficult study. * 5. Normal estimated right ventricular systolic pressure. * 6. Compared to prior study on 02/05/2014, LV systolic function now appears moderately to severely reduced. Can consider IV echo contrast to evaluate for apical thrombus and better evaluate LV systolic function if applicable. Procedure Details * A complete two-dimensional transthoracic echocardiogram was performed (2D, M-mode, Doppler and color flow Doppler). * There were technical limitations due to patient'ssupine positioning while on mechanical ventilation Left Ventricle * Top-normal left ventricular size with severely reduced systolic function. EF 25-30%. Akinesis of the apex, distal septum, distal inferior wall, basal septum, and basal inferior wall segments. Otherwise, global hypokinesis. No left ventricular hypertrophy. Right Ventricle * Normal right ventricular size with mildly reduced systolic function. Atria * The left atrial size is normal. * Right atrial size is normal. * There is no evidence of atrial septal defect, but resolution does not allow assessment for a patent foramen ovale. Mitral Valve * The mitral valve is grossly normal. * There is mild mitral annular calcification. * There is no mitral valve stenosis. * There is mild mitral regurgitation. Tricuspid Valve * The tricuspid valve is not well visualized, but is grossly normal. * There is no tricuspid stenosis. * There is trace tricuspid regurgitation. Aortic Valve * The aortic valve is trileaflet. * No hemodynamically significant valvular aortic stenosis. * There is no significant aortic regurgitation. Pulmonic Valve * The pulmonary valve is inadequately visualized, but the Doppler data is adequate for interpretation. Great Vessels * The aortic root is normal size. * Ascending aorta of normal dimension Pericardium/Pleural * There is no pericardial effusion. Great Vessels * Normal inferior vena cava size and collapsability with sniff indicates a normal right atrial pressure of 3 mmHg MMode 2D Measurements and Calculations IVSd 1.0 cm IVSs 1.1 cm LVIDd 5.2 cm LVIDs 4.3 cm LVPWd 1.0 cm LVPWs 1.1 cm IVS/LVPW 1.0 FS 16.9 % EDV(Teich) 127.3 ml ESV(Teich) 82.6 ml EF(Teich) 35.1 % EDV(cubed) 137.5 ml ESV(cubed) 78.9 ml EF(cubed) 42.6 % % IVS thick 4.8 % % LVPW thick 12.6 % LV mass(C)d 195.7 grams LV mass(C)dI 98.2 grams/m\S\2 LV mass(C)s 163.0 grams LV mass(C)sI 81.8 grams/m\S\2 CO(Teich) 3.5 l/min CI(Teich) 1.8 l/min/m\S\2 SV(Teich) 44.7 ml SI(Teich) 22.4 ml/m\S\2 CO(cubed) 4.6 l/min CI(cubed) 2.3 l/min/m\S\2 SV(cubed) 58.5 ml SI(cubed) 29.4 ml/m\S\2 Ao root diam 3.3 cm Ao root area 8.7 cm\S\2 ACS 1.6 cm LA dimension 3.2 cm asc Aorta Diam 2.9 cm LA/Ao 0.95 LVOT diam 2.3 cm LVOT area 4.2 cm\S\2 LVAd ap4 42.5 cm\S\2 LVLd ap4 10.2 cm EDV(MOD-sp4) 144.0 ml EDV(sp4-el) 122.1 ml LVAs ap4 33.7 cm\S\2 LVLs ap4 9.5 cm ESV(MOD-sp4) 97.0 ml ESV(sp4-el) 84.9 ml EF(MOD-sp4) 32.6 % EF(sp4-el) 30.4 % LVAd ap2 41.2 cm\S\2 LVLd ap2 9.5 cm EDV(MOD-sp2) 146.0 ml LVAs ap2 33.0 cm\S\2 LVLs ap2 8.9 cm ESV(MOD-sp2) 102.0 ml EF(MOD-sp2) 30.1 % CO(MOD-sp4) 3.7 l/min CI(MOD-sp4) 1.9 l/min/m\S\2 SV(MOD-sp4) 47.0 ml SI(MOD-sp4) 23.6 ml/m\S\2 CO(MOD-sp2) 3.5 l/min CI(MOD-sp2) 1.7 l/min/m\S\2 SV(MOD-sp2) 44.0 ml SI(MOD-sp2) 22.1 ml/m\S\2 CO(sp4-el) 2.9 l/min CI(sp4-el) 1.5 l/min/m\S\2 SV(sp4-el) 37.2 ml SI(sp4-el) 18.7 ml/m\S\2 Doppler Measurements and Calculations MV E max mian 72.3 cm/sec MV A max mian 69.6 cm/sec MV E/A 1.0 MV P1/2t max mian 72.7 cm/sec MV P1/2t 90.5 msec MVA(P1/2t) 2.4 cm\S\2 MV dec slope 235.4 cm/sec\S\2 MV dec time 0.20 sec Ao V2 max 101.4 cm/sec Ao max PG 4.1 mmHg Ao max PG (full) 2.3 mmHg VISHNU(V,A) 2.8 cm\S\2 VISHNU(V,D) 2.8 cm\S\2 LV V1 max PG 1.8 mmHg LV V1 max 66.5 cm/sec TV E max mian 33.9 cm/sec PA V2 max 61.1 cm/sec PA max PG 1.5 mmHg TR max mian 177.2 cm/sec RVSP(TR) 15.6 mmHg RAP systole 3.0 mmHg
--- NOTE | 2016-10-20 19:08 | Progress Note ---
Subjective Date of Service: Oct 20, 2016. Subjective Patient is intubated ventilated and sedated felt to come into the ER with status blood thickness from medical noncompliance. He has baseline right hemiparesis from previous stroke he has no substance abuse person Problem List Medical Problems: (1) Abdominal pain, left upper quadrant Status: Acute (2) Fever Status: Acute (3) Status epilepticus, generalized convulsive Status: Acute (4) Weakness Status: Acute Review of Systems Review of systems cannot be obtained due to sedation and intubation and ventilation Objective Vital Signs Date Time Temp Pulse Resp B/P (MAP) Pulse Ox O2 Delivery O2 Flow Rate FiO2 10/20/16 17:00 76 14 164/107 (126) 100 Mechanical Ventilator 30 10/20/16 16:42 76 14 172/114 (133) 100 Mechanical Ventilator 30 10/20/16 16:13 76 13 179/117 (137) 100 Mechanical Ventilator 30 10/20/16 16:06 84 188/127 10/20/16 16:00 30 10/20/16 16:00 37.0 86 20 188/127 (147) 100 Mechanical Ventilator 30 10/20/16 16:00 30 10/20/16 14:22 30 10/20/16 14:00 81 15 180/126 (144) 100 Mechanical Ventilator 30 10/20/16 13:17 30 10/20/16 13:12 82 186/126 10/20/16 12:30 30 10/20/16 12:30 30 10/20/16 12:00 36.8 86 13 186/126 (146) 100 Mechanical Ventilator 30 10/20/16 11:00 Mechanical Ventilator 10/20/16 10:00 82 20 148/105 (119) 100 Mechanical Ventilator 30 10/20/16 08:36 102 160/107 10/20/16 08:30 99 20 160/107 (124) 98 10/20/16 08:27 36.8 102 20 169/123 98 Mechanical Ventilator 30 10/20/16 08:00 115 18 174/92 (119) 10/20/16 07:40 40 10/20/16 07:30 24 192/125 (147) 99 10/20/16 07:23 102 22 192/125 100 Mechanical Ventilator 10/20/16 06:56 112 25 99 10/20/16 06:51 110 25 200/129 99 10/20/16 06:46 119 23 98 10/20/16 06:42 201/127 10/20/16 06:41 116 23 100 10/20/16 06:36 109 24 100 10/20/16 06:31 117 27 200/136 100 10/20/16 06:26 98 19 100 10/20/16 06:21 106 13 193/120 100 10/20/16 06:16 103 0 100 10/20/16 06:11 106 3 186/123 100 10/20/16 06:06 104 0 100 10/20/16 06:01 109 0 185/115 100 10/20/16 05:56 118 0 100 10/20/16 05:51 124 0 172/115 97 10/20/16 05:46 133 0 98 10/20/16 05:41 106 0 138/88 97 10/20/16 05:36 115 0 95 10/20/16 05:31 121/84 10/20/16 05:27 108 12 128/97 98 10/20/16 05:25 40 10/20/16 05:22 113 21 97 10/20/16 05:21 135/89 10/20/16 05:17 130 17 97 10/20/16 05:12 121 25 99 10/20/16 05:11 158/113 10/20/16 05:08 182/118 10/20/16 05:07 139 20 100 10/20/16 05:02 136 28 96 10/20/16 05:01 208/128 10/20/16 04:57 132 30 98 10/20/16 04:52 147 30 96 10/20/16 04:51 183/117 10/20/16 04:50 130 183/117 97 Ambu-Bag 10/20/16 04:50 98 10/20/16 04:50 205/120 10/20/16 04:49 135 205/120 98 Non-Rebreather 15.0 10/20/16 04:47 136 15 203/113 98 10/20/16 04:44 137 6 203/113 98 Non-Rebreather 15.0 10/20/16 04:42 136 20 98 10/20/16 04:29 98 Non-Rebreather 15.0 10/20/16 04:29 98 Non-Rebreather 15.0 10/20/16 04:28 137 6 98 Room Air 10/20/16 04:27 136 7 98 10/20/16 04:23 137 10/20/16 04:22 138 3 98 10/20/16 04:15 138 6 194/119 98 Non-Rebreather 15.0 10/20/16 04:00 98 Non-Rebreather 15.0 10/20/16 04:00 37.4 138 8 192/115 96 Non-Rebreather 15.0 Physical Exam General Appearance: WD/WN, + moderate distress Eyes: PERRL, EOMI Respiratory/Chest: + respiratory distress, + decreased breath sounds, + accessory muscle use Cardiovascular: regular rate, rhythm Abdomen: normal bowel sounds, soft Neurologic/Psychiatric: + pertinent finding (he has some posturing of his right arm and wrist in a flexed way and he has upgoing toes right foot) Laboratory Results Last 24 Hours Test 10/20/16 04:05 10/20/16 04:10 10/20/16 04:46 10/20/16 05:26 Urine Color YELLOW Urine Appearance CLEAR Urine pH 5.0 Urine Specific [place] 1.018 Urine Protein 2+ Urine Glucose (UA) 2+ Urine Ketones NEG Urine Occult Blood TRACE Urine Nitrite NEG Urine Bilirubin NEG Urine Urobilinogen NEG Urine Leukocyte Esterase NEG Urine WBC (Auto) 1-5 /hpf Urine RBC (Auto) 0-4 /hpf Urine Hyaline Casts (Auto) 0 /lpf Urine Epithelial Cells (Auto) 5-10 /lpf Urine Bacteria (Auto) NEG Urine Renal Epithelial Cells /lpf Urine Sperm (Auto) PRESENT Urine Opiates Screen NEG Urine Methadone, Qualitative NEG Urine Barbiturates NEG Urine Phencyclidine (PCP) Level NEG Ur Amphetamine/Methamphetamine NEG MDMA (Ecstasy) Screen NEG Urine Benzodiazepines Screen POS Urine Cocaine Metabolite NEG Urine Marijuana (THC) POS White Blood Count 24.92 K/uL Red Blood Count 4.68 M/uL Hemoglobin 15.3 g/dL Hematocrit 44.3 % Mean Corpuscular Volume 94.7 fL Mean Corpuscular Hemoglobin 32.7 pg Mean Corpuscular Hemoglobin Concent 34.5 g/dl Platelet Count 344 K/uL Mean Platelet Volume 9.7 fL RDW Standard Deviation 41.9 fL RDW Coefficient of Variation 12.3 % Neutrophils % (Manual) 29.6 % Lymphocytes % (Manual) 38.1 % Variant Lymphocytes % (manual) 18.3 % Monocytes % (Manual) 8.7 % Eosinophils % (Manual) 0.9 % Metamyelocytes % 3.5 % Myelocytes % 0.9 % Neutrophils # (Manual) 7.38 K/uL Total Absolute Neutrophils 7.38 K/uL Lymphocytes # (Manual) 9.49 K/uL Absolute Variant Lymphocytes 4.56 K/uL Total Absolute Lymphocytes 14.05 K/uL Monocytes # (Manual) 2.17 K/uL Eosinophils # (Manual) 0.22 K/uL Metamyelocytes # 0.87 K/uL Myelocytes # 0.22 K/uL Blood Smear Review Red Blood Cell Morphology Unremarkable Prothrombin Time 10.0 SECONDS Prothromb Time International Ratio 0.9 Activated Partial Thromboplast Time 26.4 SECONDS Partial Thromboplastin Ratio 1.0 Sodium Level 137 mmol/L Potassium Level 3.2 mmol/L Chloride Level 103 mmol/L Carbon Dioxide Level 18 mmol/L Anion Gap 16.0 mmol/L Blood Urea Nitrogen 11 mg/dl Creatinine 1.40 mg/dl Estimated GFR () 66.9 Estimated GFR (Non- 57.8 BUN/Creatinine Ratio 8.1 Random Glucose 304 mg/dl Calcium Level 8.7 mg/dl Phosphorus Level 5.2 mg/dl Magnesium Level 2.3 mg/dl Total Bilirubin 0.4 mg/dl Direct Bilirubin 0.1 mg/dl Aspartate Amino Transf (AST/SGOT) 28 U/L Alanine Aminotransferase (ALT/SGPT) 21 U/L Alkaline Phosphatase 131 U/L Total Creatine Kinase 137 U/L Creatine Kinase MB 2.4 ng/ml Creatine Kinase MB Ratio 1.8 Troponin I 0.064 ng/ml Total Protein 7.7 gm/dl Albumin 4.5 gm/dl Beta-Hydroxybutyric Acid 1.51 mg/dL Procalcitonin 0.11 ng/ml Thyroid Stimulating Hormone (TSH) 1.970 uIu/ml Bedside Glucose 273 mg/dl Bedside Lactic Acid Venous 5.00 mmol/L Test 10/20/16 05:35 10/20/16 06:14 10/20/16 08:32 10/20/16 09:35 Salicylates Level 2.6 mg/dl Acetaminophen Level 2 ug/ml Ethyl Alcohol mg/dL < 3.0 mg/dl Bedside Blood Gas pH (LAB) 7.20 Bedside Blood Gas pCO2 (LAB) 64 mmHg Bedside Blood Gas pO2 (LAB) > 420 mmHg Bedside Blood Gas HCO3 (LAB) 25 meq/L Bedside Blood Gas Total CO2 27 mEq/l Bedside Blood Gas Base Excess (LAB) -3.0 meq/L Bedside Blood Gas O2 Saturation 100.0 % Bedside Glucose 201 mg/dl Estimated Average Glucose 97 mg/dl Hemoglobin A1c 5.0 % Lactic Acid Level 2.6 mmol/L Test 10/20/16 13:12 10/20/16 13:41 10/20/16 13:45 10/20/16 16:09 Bedside Glucose 126 mg/dl Creatine Kinase MB Ratio Total Creatine Kinase U/L 285 U/L Creatine Kinase MB 6.8 ng/ml Troponin I 0.210 ng/ml Test 10/20/16 17:12 Bedside Glucose 122 mg/dl Assessment and Plan 50-year-old male with status epilepticus with a history of seizure disorder requiring intubation and ventilation Acute respiratory failure in ability to protect airway patient will be managed by the ICU team he is currently ventilated and sedated next Status epilepticus the patient is on an intravenous Versed drip neurology will be involved EEG is pending patient was given Keppra in the ER will be continued to be administered Cardiovascular and cerebrovascular disease, patiently maintain him on his statin and beta owen Coreg via his OG tube and intravenous metoprolol as needed next Concerns for possible aspiration pneumonia as elevated white count and airway protection was encouraged in will be maintained on Zosyn X Elevated troponin this is likely slight Elsa although these will be trended Lovenox as DVT prevention
[2016-10-20] MEDS: CARVEDILOL 6.25 MG TAB PO SCH (21:00)
[2016-10-20 22:44] LABS: CKMB/CK RATIO 2.1 (0-3.0)
[2016-10-21] VITALS (40 sets, daily range): BP systolic 93–186; BP diastolic 59–123; PULSE 68–104; TEMP 36.8–37.4; O2SAT 93–100
[2016-10-21] MEDS: NSS + 20MEQ KCL 1000ML 1,000 ML IV SCH ×3 (00:44→16:48)
[2016-10-21] MEDS: METOPROLOL TARTRATE 1 MG/ML VIAL IV. SCH ×6 (00:45→20:24)
[2016-10-21] MEDS: PROPOFOL IV EMULSION 10 MG/ML 100 ML VIAL IV SCH ×2 (00:51→05:56)
[2016-10-21] MEDS: HydrALAZINE HCL 20 MG/ML VIAL IV. PRN (02:06)
[2016-10-21] MEDS: PIPERACILL/TAZOBAC IV 4.5 GM in DEXTROSE 5% 100ML 100 ML IV SCH ×3 (04:00→20:23)
[2016-10-21] MEDS: VANCOMYCIN INJ 1,250 MG in SODIUM CHLORIDE 0.9% 250ML 250 ML IV SCH ×3 (05:30→22:14)
[2016-10-21] MEDS: INSULIN ASPART 100 UNITS/ML 3 ML PEN SC SCH ×3 (05:57→17:36)
[2016-10-21 06:40] LABS: BASO % 0.1 %; BASO ABS # 0.02 K/uL (0-0.2); COMPLETE YES; EOS % 0.2 %; HEMATOCRIT 38.6 % (42-52); IG% 0.4 %; LYMPH % 15.4 %; LYMPH ABS # 2.53 K/uL (1.2-3.4); MEAN CELL VOLUME 90.4 fL (80-100); MEAN CORPUSCULAR HEMOGLOBIN 31.6 pg (25-34); MEAN PLATELET VOLUME 9.3 fL (7.4-10.4); MONO % 11.3 %; NEUT % 72.6 %; PLATELET COUNT 258 K/uL (130-400); RED BLOOD COUNT 4.27 M/uL (4.7-6.1)
[2016-10-21 06:51] LABS: PROTHROMBIN TIME (PATIENT) 10.3 SECONDS (9.0-12.0)
[2016-10-21 07:18] LABS: CALCIUM 8.4 mg/dl (8.5-10.1); CREATININE 0.74 mg/dl (0.60-1.40); MAGNESIUM 1.7 mg/dl (1.8-2.4); PHOSPHORUS 1.9 mg/dl (2.5-4.9); POTASSIUM 3.3 mmol/L (3.5-5.1)
[2016-10-21] MEDS ORDERED: POTASSIUM PHOS 3 MMOL/1 ML INFUSION IV STA (07:40)
--- NOTE | 2016-10-21 07:42 | DIAGNOSTIC IMAGING REPORT ---
CHEST ONE VIEW PORTABLE CLINICAL HISTORY: on ventilator COMPARISON STUDY: 10/20/2016 FINDINGS: The cardiac and mediastinal contours remain stable. There is an endotracheal tube 3.5 cm above the [place]. There is a nasogastric tube positioned within distal esophagus. There is no focal pulmonary consolidation.[ IMPRESSION: 1. Endotracheal tube 3.5 cm above the [place] 2. Nasogastric tube with its tip located within the distal esophagus. 3. No evidence of focal pulmonary consolidation Electronically signed by: Rishabh Akers M.D. 10/21/2016 7:41 AM Dictated Date/Time: 10/21/2016 7:39 AM
[2016-10-21] MEDS ORDERED: MAGNESIUM SULFATE 1GM / D5W 1 GM in PREMIXED IN D5W 100 ML IV ONE ×2 (08:00→09:00)
[2016-10-21] MEDS ORDERED: POTASSIUM PHOSPHATE INJ 9 MMOL in SODIUM CHLORIDE 0.9% 250ML 250 ML IV SCH (08:00)
[2016-10-21] MEDS: POTASSIUM CHLORIDE 20 MEQ/15 ML UDC NG SCH ×2 (08:00→20:26)
[2016-10-21] MEDS: LEVETIRACETAM IV 500 MG in DEXTROSE 5% 100ML 100 ML IV SCH (08:01)
[2016-10-21] MEDS: FAMOTIDINE IV INJ 20 MG in DEXTROSE 5% 100ML 100 ML IV SCH ×2 (08:02→20:23)
[2016-10-21] MEDS ORDERED: DexMEDEtomidine HCL INJ 200 MCG in SODIUM CHLORIDE 0.9% 50ML 48 ML IV PRN (08:15)
[2016-10-21] MEDS ORDERED: POTASSIUM PHOSPHATE INJ 15 MMOL in SODIUM CHLORIDE 0.9% 250ML 250 ML IV SCH (08:30)
--- NOTE | 2016-10-21 08:55 | Neurology Progress Notes ---
Neurology Progress Note Date of Service Oct 21, 2016. Subjective Follow-up for seizure The patient remains in the intensive care unit, sedated on the mechanical ventilator. He has completed an up-to-date brain MRI and electroencephalogram. I reviewed the images and data as well as the reports pertaining to these tests. There is no evidence of an acute infarct on brain MRI. There is chronic encephalomalacia of the left cerebral hemisphere related to this patient's remote infarct. There is some associated atrophy of the left hippocampus as well. The EEG reveals left frontal temporal slowing but no epileptiform abnormalities. Objective Date Time Temp Pulse Resp B/P (MAP) Pulse Ox O2 Delivery O2 Flow Rate FiO2 10/21/16 07:59 103 172/124 10/21/16 07:37 30 10/21/16 06:00 94 16 148/91 (110) 98 Mechanical Ventilator 30 10/21/16 04:50 30 10/21/16 04:00 30 10/21/16 04:00 99 Mechanical Ventilator 30 10/21/16 04:00 87 155/96 10/21/16 04:00 37.1 88 17 147/87 (107) 99 Mechanical Ventilator 30 10/21/16 02:16 85 16 146/93 (110) 10/21/16 02:00 80 14 165/94 (117) 100 Mechanical Ventilator 30 10/21/16 01:55 30 10/21/16 00:45 80 160/92 10/21/16 00:00 36.8 80 17 160/92 (114) 99 30 10/20/16 23:59 30 10/20/16 23:59 99 Mechanical Ventilator 30 10/20/16 23:29 30 10/20/16 22:26 93 159/65 10/20/16 22:01 78 15 159/95 (116) 99 Mechanical Ventilator 30 10/20/16 21:01 79 16 147/93 (111) 99 10/20/16 20:01 37.1 80 15 140/90 (107) 99 Mechanical Ventilator 30 10/20/16 20:00 99 Mechanical Ventilator 30 10/20/16 20:00 30 10/20/16 19:35 30 10/20/16 19:01 79 16 135/86 (102) 99 10/20/16 17:00 76 14 164/107 (126) 100 Mechanical Ventilator 30 10/20/16 16:42 76 14 172/114 (133) 100 Mechanical Ventilator 30 10/20/16 16:13 76 13 179/117 (137) 100 Mechanical Ventilator 30 10/20/16 16:06 84 188/127 10/20/16 16:00 30 10/20/16 16:00 37.0 86 20 188/127 (147) 100 Mechanical Ventilator 30 10/20/16 16:00 30 10/20/16 14:22 30 10/20/16 14:00 81 15 180/126 (144) 100 Mechanical Ventilator 30 10/20/16 13:17 30 10/20/16 13:12 82 186/126 10/20/16 12:30 30 10/20/16 12:30 30 10/20/16 12:00 36.8 86 13 186/126 (146) 100 Mechanical Ventilator 30 10/20/16 11:00 Mechanical Ventilator 10/20/16 10:00 82 20 148/105 (119) 100 Mechanical Ventilator 30 Last 24 Hours Test 10/20/16 09:35 10/20/16 13:12 10/20/16 13:41 10/20/16 13:45 Estimated Average Glucose 97 mg/dl Hemoglobin A1c 5.0 % Lactic Acid Level 2.6 mmol/L Bedside Glucose 126 mg/dl Creatine Kinase MB Ratio Total Creatine Kinase U/L Creatine Kinase MB 6.8 ng/ml Troponin I 0.210 ng/ml Test 10/20/16 16:09 10/20/16 17:12 10/20/16 20:57 10/20/16 22:10 Total Creatine Kinase 285 U/L 285 U/L Bedside Glucose 122 mg/dl 105 mg/dl Creatine Kinase MB 5.9 ng/ml Creatine Kinase MB Ratio 2.1 Troponin I 0.216 ng/ml Test 10/20/16 23:37 10/21/16 05:54 10/21/16 06:15 Bedside Glucose 135 mg/dl 132 mg/dl White Blood Count 16.40 K/uL Red Blood Count 4.27 M/uL Hemoglobin 13.5 g/dL Hematocrit 38.6 % Mean Corpuscular Volume 90.4 fL Mean Corpuscular Hemoglobin 31.6 pg Mean Corpuscular Hemoglobin Concent 35.0 g/dl Platelet Count 258 K/uL Mean Platelet Volume 9.3 fL Neutrophils (%) (Auto) 72.6 % Lymphocytes (%) (Auto) 15.4 % Monocytes (%) (Auto) 11.3 % Eosinophils (%) (Auto) 0.2 % Basophils (%) (Auto) 0.1 % Neutrophils # (Auto) 11.89 K/uL Lymphocytes # (Auto) 2.53 K/uL Monocytes # (Auto) 1.85 K/uL Eosinophils # (Auto) 0.04 K/uL Basophils # (Auto) 0.02 K/uL RDW Standard Deviation 41.5 fL RDW Coefficient of Variation 12.6 % Immature Granulocyte % (Auto) 0.4 % Immature Granulocyte # (Auto) 0.07 K/uL Prothrombin Time 10.3 SECONDS Prothromb Time International Ratio 1.0 Activated Partial Thromboplast Time 26.6 SECONDS Partial Thromboplastin Ratio 1.0 Sodium Level 142 mmol/L Potassium Level 3.3 mmol/L Chloride Level 111 mmol/L Carbon Dioxide Level 24 mmol/L Anion Gap 7.0 mmol/L Blood Urea Nitrogen 7 mg/dl Creatinine 0.74 mg/dl Est Creatinine Clear Calc Drug Dose 125.7 ml/min Estimated GFR () 123.8 Estimated GFR (Non- 106.8 BUN/Creatinine Ratio 9.0 Random Glucose 139 mg/dl Calcium Level 8.4 mg/dl Phosphorus Level 1.9 mg/dl Magnesium Level 1.7 mg/dl Total Bilirubin 0.7 mg/dl Direct Bilirubin 0.1 mg/dl Aspartate Amino Transf (AST/SGOT) 20 U/L Alanine Aminotransferase (ALT/SGPT) 19 U/L Alkaline Phosphatase 89 U/L Total Protein 5.8 gm/dl Albumin 3.3 gm/dl Exam: As above, the patient is sedated, on the mechanical ventilator in the ICU. He does exhibit minimal agitation with tactile stimulation and sometimes exhibits extensor posturing of the right arm and leg. No twitching, shaking, or tonic clonic-type movements observed. Current Inpatient Medications Medications (Trade) Dose Ordered Sig/Jerson Route Start Time Stop Time Status Last Admin Dose Admin Potassium Chloride/Sodium Chloride 1,000 ml @ 125 mls/hr Q8H IV 10/20/16 08:00 11/19/16 07:59 10/21/16 08:02 125 MLS/HR Lorazepam (Ativan Inj) 1 mg Q2H PRN IV 10/20/16 06:00 11/19/16 05:59 10/21/16 05:38 1 MG Famotidine 20 mg/ Dextrose 102 ml @ 200 mls/hr Q12H IV 10/20/16 08:00 11/19/16 07:59 10/21/16 08:02 200 MLS/HR Levetiracetam 500 mg/Dextrose 105 ml @ 420 mls/hr Q12 IV 10/20/16 09:00 11/19/16 08:59 10/21/16 08:01 420 MLS/HR Propofol (Diprivan Iv Emulsion 100ml Vial) 1 dose UD IV 10/20/16 08:18 10/23/16 08:17 10/21/16 05:56 1 DOSE Ondansetron HCl (Zofran Inj) 4 mg Q6H PRN IV 10/20/16 06:00 11/19/16 05:59 Glucose (Glucose 40% Gel) UD PRN PO 10/20/16 06:00 11/19/16 05:59 Glucose (Glucose Chew Tab) 1 tabs UD PRN PO 10/20/16 06:00 11/19/16 05:59 Dextrose (Dextrose 50% 50ML Syringe) 50 ml UD PRN IV 10/20/16 06:00 11/19/16 05:59 Glucagon (Glucagon Inj) 1 mg UD PRN SQ 10/20/16 06:00 11/19/16 05:59 Piperacillin Sod/ Tazobactam Sod 4.5 gm/Dextrose 120 ml @ 30 mls/hr Q8H IV 10/20/16 12:00 10/27/16 11:59 10/21/16 04:00 30 MLS/HR Vancomycin HCl 1250 mg/Sodium Chloride 275 ml @ 125 mls/hr Q12H IV 10/20/16 18:00 10/27/16 17:59 10/21/16 05:30 125 MLS/HR Midazolam HCl 250 ml @ 0 mls/hr Q0M PRN IV 10/20/16 06:11 11/19/16 06:10 10/20/16 06:51 4 MLS/HR Metoprolol Tartrate (Lopressor Iv) 5 mg Q4 IV. 10/20/16 08:00 11/19/16 07:59 10/21/16 07:59 5 MG Hydralazine HCl (HydrALAZINE INJ) 10 mg Q4H PRN IV. 10/20/16 06:30 11/19/16 06:29 10/21/16 02:06 10 MG Vancomycin HCl (Consult) 1 ea UD PRN N/A 10/20/16 08:30 11/19/16 08:29 Piperacillin Sod/ Tazobactam Sod (Consult) 1 ea UD PRN N/A 10/20/16 08:30 11/19/16 08:29 Atorvastatin Calcium (Lipitor Tab) 80 mg QAM PO 10/21/16 09:00 11/20/16 08:59 Carvedilol (Coreg Tab) 6.25 mg BID PO 10/20/16 21:00 11/19/16 20:59 Enoxaparin Sodium (Lovenox Inj) 40 mg QAM SQ 10/21/16 09:00 11/20/16 08:59 Insulin Aspart (novoLOG ASPART) SLIDING SCALE If C... Q6 SC 10/20/16 18:00 11/19/16 17:59 Potassium Chloride (Concetta Ciel Elix) 20 meq BID NG 10/21/16 09:00 11/20/16 08:59 10/21/16 08:00 20 MEQ Magnesium Sulfate 1 gm/Prmx 100 ml @ 100 mls/hr NOW ONCE IV 10/21/16 08:00 10/21/16 08:59 10/21/16 07:58 100 MLS/HR Dexmedetomidine HCl 200 mcg/ Sodium Chloride 50 ml @ 0 mls/hr Q0M PRN IV 10/21/16 08:15 10/25/16 08:14 10/21/16 08:32 6 MLS/HR Fentanyl Citrate (Fentanyl Inj) 25 mcg Q2H PRN IV 10/21/16 08:15 11/04/16 08:14 Magnesium Sulfate 1 gm/Prmx 100 ml @ 100 mls/hr TODAY@0900 ONCE IV 10/21/16 09:00 10/21/16 09:59 Potassium Phosphate 15 mmol/ Sodium Chloride 255 ml @ 100 mls/hr TODAY@0830 IV 10/21/16 08:30 10/21/16 11:02 Impression No evidence of ongoing or subclinical seizure activity. History of seizure disorder with noncompliance with anticonvulsant medications. History of chronic right hemiparesis and expressive aphasia due to a remote left hemispheric stroke. No evidence of recent stroke. Plan Continue Keppra 500 mg IV every 12 hours Switch Keppra to tablets when able to resume by mouth intake. Restart Lamictal when patient able to resume by mouth intake.
[2016-10-21] MEDS: FENTANYL CITRATE INJ 50 MCG/1 ML 2 ML VIAL IV PRN (08:56)
[2016-10-21] MEDS: ATORVASTATIN 40 MG TAB PO SCH (08:58)
[2016-10-21] MEDS: CARVEDILOL 6.25 MG TAB PO SCH (08:58)
[2016-10-21] MEDS: ENOXAPARIN 40 MG/0.4 ML SYR SQ SCH (08:58)
--- NOTE | 2016-10-21 10:03 | Critical Care Progress Note ---
Critical Care Progress Note Date of Service Oct 21, 2016. ICU Day ICU Day Number: [address] Hargrove Subjective Patient without any acute events overnight Unable to obtain a ROS as patient is currently sedated with vent in place. Objective General Appearance: no apparent distress, other (patient appears disheveled and had endotracheal tube in place) Head: normocephalic Neck: trachea midline, no stridor, supple, Respiratory: patient with rhonchi bilaterally and without any wheezes or crackles Cardiovasular: regular rate/rhythm, no murmur, no rub, normal peripheral pulses , unable to assess JVD due to cedeño in the way Abdomen: non tender, normal bowel sounds, no rebound, no masses Upper Extremities: both upper extremities in restraints Lower Extremities: no peripheral edema noted Pulses: radial (R) (2+), radial (L) (2+), dorsalis pedis (R) (2+), dorsalis pedis (L) (2+) Neuro: other (unable to do official neuro exam as patient sedated and intubated Reflexes: patellar (R) (2+), patellar (L) (2+) Current SOFA Score SOFA Score Response (Comments) Value Platelets (x10) > 150 0 Bilirubin (mg/dL) < 1.2 0 Pierre Coma Score 15 ((unable to assess officially as patient sedated)) 0 Level of Hypotension No Hypotension 0 Creatinine (mg/dL) < 1.2 0 Total 0 Assessment & Plan 50-year-old male with a past medical history of seizure disorder, stroke, hypertension, diabetes presented to the ER via EMS after status epilepticus. He was intubated in the ED and is receiving Keppra IV for seizures. Patient has been non compliant with medications which is the likely reason for his seizure. In the interim the patient has been seen by neurology. They requested that we obtain an MRI which did not show any acute intracranial abnormalities but did show a chronic left cerebral hemisphere infarction. The EEG revealed left frontal temporal slowing but no epileptiform abnormalities. An echo done yesterday did show a reduced ejection fraction of 30-35% with decreased systolic function w/ akinesis of the apex, septum and inferior wall. He did have a small bump in his troponin up to .216. We will be decreasing the patients sedation and will attempt spontaneous breathing trial. After extubation we will be able to start keppra PO and restart lamictal PO and transfer to the floors tomorrow. NEURO Stop propofol and versed for sedation but will start precedex and fentanyl Head CT negative for acute intracranial abnormality, MRI also negative for acute intracranial bleed Neurology consulted EEG without any epileptiform activity Restarted keppra and lamotrigine PO once patient able to take PO Patient with seizure disorder and currently receiving keppra IV bid Ativan at the bedside PRN for anxiety Patient likely had seizure due to non-compliance with medications Patient with history of stroke with residual right sided weakness, aspirin and lipitor restarted ID Patient with WCC of 24.92 in the ED now 16.4, remained afebrile UA without any source of infection and CXR clear, no meningeal signs on exam On Vanc and Pip-Tazo with blood cultures pending Lactic Acid 2.6, will continue to follow Will continue to monitor vitals and WCC for ongoing infection CARDIAC Patient with history of hypertension Takes Carvedilol and Lisinopril at home, will continue once can take PO Currently receiving metoprolol q4 and hydralazine for systolic BP>160 Troponin .064-->.216 and will trend q8. EKG ordered. Echo with decreased systolic function of 30-35% EF Monitor on telemetry Patient with hx of stroke, aspirin and statin restarted RENAL Potassium 3.3 on admission, supplement with 40meq of potassium PO and KPhos Phosphate 1.9 and supplementing with KPhos Creatinine 0.74 PSYCH Patient wheelchair bound Positive for marijuana in drug screen (opiates + but unsure if iatrogen from benzo administration prior to ED) Patient on Seroquel, Lamictal and Prozac (unsure of official diagnosis, will need to talk caregiver and look through old records) Uncompliance with medications, due to worsening depression? will likely need psych referral when more clinically stable ENDO T2DM Patient started on Insulin infusion with range of 140-180 Does not appear to be on medication on home med list HbA1c 5.0 this admission GI Patient currently NPO Famotidine for GI prophylaxis LFT's wnl DVT Prophylaxis Lovenox SubQ FULL CODE Consults & Procedures Consultants: Neurology Procedures: Intubation EEG MRI Data Medications: Current Inpatient Medications Medications (Trade) Dose Ordered Sig/Jerson Route Start Time Stop Time Status Last Admin Dose Admin Potassium Chloride/Sodium Chloride 1,000 ml @ 125 mls/hr Q8H IV 10/20/16 08:00 11/19/16 07:59 10/21/16 08:02 125 MLS/HR Lorazepam (Ativan Inj) 1 mg Q2H PRN IV 10/20/16 06:00 11/19/16 05:59 10/21/16 05:38 1 MG Famotidine 20 mg/ Dextrose 102 ml @ 200 mls/hr Q12H IV 10/20/16 08:00 11/19/16 07:59 10/21/16 08:02 200 MLS/HR Levetiracetam 500 mg/Dextrose 105 ml @ 420 mls/hr Q12 IV 10/20/16 09:00 11/19/16 08:59 10/21/16 08:01 420 MLS/HR Propofol (Diprivan Iv Emulsion 100ml Vial) 1 dose UD IV 10/20/16 08:18 10/23/16 08:17 10/21/16 05:56 1 DOSE Ondansetron HCl (Zofran Inj) 4 mg Q6H PRN IV 10/20/16 06:00 11/19/16 05:59 Glucose (Glucose 40% Gel) UD PRN PO 10/20/16 06:00 11/19/16 05:59 Glucose (Glucose Chew Tab) 1 tabs UD PRN PO 10/20/16 06:00 11/19/16 05:59 Dextrose (Dextrose 50% 50ML Syringe) 50 ml UD PRN IV 10/20/16 06:00 11/19/16 05:59 Glucagon (Glucagon Inj) 1 mg UD PRN SQ 10/20/16 06:00 11/19/16 05:59 Piperacillin Sod/ Tazobactam Sod 4.5 gm/Dextrose 120 ml @ 30 mls/hr Q8H IV 10/20/16 12:00 10/27/16 11:59 10/21/16 04:00 30 MLS/HR Vancomycin HCl 1250 mg/Sodium Chloride 275 ml @ 125 mls/hr Q12H IV 10/20/16 18:00 10/27/16 17:59 10/21/16 05:30 125 MLS/HR Midazolam HCl 250 ml @ 0 mls/hr Q0M PRN IV 10/20/16 06:11 11/19/16 06:10 10/20/16 06:51 4 MLS/HR Metoprolol Tartrate (Lopressor Iv) 5 mg Q4 IV. 10/20/16 08:00 11/19/16 07:59 10/21/16 07:59 5 MG Hydralazine HCl (HydrALAZINE INJ) 10 mg Q4H PRN IV. 10/20/16 06:30 11/19/16 06:29 10/21/16 02:06 10 MG Vancomycin HCl (Consult) 1 ea UD PRN N/A 10/20/16 08:30 11/19/16 08:29 Piperacillin Sod/ Tazobactam Sod (Consult) 1 ea UD PRN N/A 10/20/16 08:30 11/19/16 08:29 Atorvastatin Calcium (Lipitor Tab) 80 mg QAM PO 10/21/16 09:00 11/20/16 08:59 10/21/16 08:58 80 MG Carvedilol (Coreg Tab) 6.25 mg BID PO 10/20/16 21:00 11/19/16 20:59 10/21/16 08:58 6.25 MG Enoxaparin Sodium (Lovenox Inj) 40 mg QAM SQ 10/21/16 09:00 11/20/16 08:59 10/21/16 08:58 40 MG Insulin Aspart (novoLOG ASPART) SLIDING SCALE If C... Q6 SC 10/20/16 18:00 11/19/16 17:59 Potassium Chloride (Concetta Ciel Elix) 20 meq BID NG 10/21/16 09:00 11/20/16 08:59 10/21/16 08:00 20 MEQ Dexmedetomidine HCl 200 mcg/ Sodium Chloride 50 ml @ 0 mls/hr Q0M PRN IV 10/21/16 08:15 10/25/16 08:14 10/21/16 08:32 6 MLS/HR Fentanyl Citrate (Fentanyl Inj) 25 mcg Q2H PRN IV 10/21/16 08:15 11/04/16 08:14 10/21/16 08:56 25 MCG Magnesium Sulfate 1 gm/Prmx 100 ml @ 100 mls/hr TODAY@0900 ONCE IV 10/21/16 09:00 10/21/16 09:59 Potassium Phosphate 15 mmol/ Sodium Chloride 255 ml @ 100 mls/hr TODAY@0830 IV 10/21/16 08:30 10/21/16 11:02 10/21/16 08:56 100 MLS/HR Vital Signs: Date Time Temp Pulse Resp B/P (MAP) Pulse Ox O2 Delivery O2 Flow Rate FiO2 10/21/16 07:59 103 172/124 10/21/16 07:37 30 10/21/16 06:00 94 16 148/91 (110) 98 Mechanical Ventilator 30 10/21/16 04:50 30 10/21/16 04:00 30 10/21/16 04:00 99 Mechanical Ventilator 30 10/21/16 04:00 87 155/96 10/21/16 04:00 37.1 88 17 147/87 (107) 99 Mechanical Ventilator 30 10/21/16 02:16 85 16 146/93 (110) 10/21/16 02:00 80 14 165/94 (117) 100 Mechanical Ventilator 30 10/21/16 01:55 30 10/21/16 00:45 80 160/92 10/21/16 00:00 36.8 80 17 160/92 (114) 99 30 10/20/16 23:59 30 10/20/16 23:59 99 Mechanical Ventilator 30 10/20/16 23:29 30 10/20/16 22:26 93 159/65 10/20/16 22:01 78 15 159/95 (116) 99 Mechanical Ventilator 30 10/20/16 21:01 79 16 147/93 (111) 99 10/20/16 20:01 37.1 80 15 140/90 (107) 99 Mechanical Ventilator 30 10/20/16 20:00 99 Mechanical Ventilator 30 10/20/16 20:00 30 10/20/16 19:35 30 10/20/16 19:01 79 16 135/86 (102) 99 10/20/16 17:00 76 14 164/107 (126) 100 Mechanical Ventilator 30 10/20/16 16:42 76 14 172/114 (133) 100 Mechanical Ventilator 30 10/20/16 16:13 76 13 179/117 (137) 100 Mechanical Ventilator 30 10/20/16 16:06 84 188/127 10/20/16 16:00 30 10/20/16 16:00 37.0 86 20 188/127 (147) 100 Mechanical Ventilator 30 10/20/16 16:00 30 10/20/16 14:22 30 10/20/16 14:00 81 15 180/126 (144) 100 Mechanical Ventilator 30 10/20/16 13:17 30 10/20/16 13:12 82 186/126 10/20/16 12:30 30 10/20/16 12:30 30 10/20/16 12:00 36.8 86 13 186/126 (146) 100 Mechanical Ventilator 30 10/20/16 11:00 Mechanical Ventilator 10/20/16 10:00 82 20 148/105 (119) 100 Mechanical Ventilator 30 Laboratory Results: Last 24 Hours Test 10/20/16 09:35 10/20/16 13:12 10/20/16 13:41 10/20/16 13:45 Estimated Average Glucose 97 mg/dl Hemoglobin A1c 5.0 % Lactic Acid Level 2.6 mmol/L Bedside Glucose 126 mg/dl Creatine Kinase MB Ratio Total Creatine Kinase U/L Creatine Kinase MB 6.8 ng/ml Troponin I 0.210 ng/ml Test 10/20/16 16:09 10/20/16 17:12 10/20/16 20:57 10/20/16 22:10 Total Creatine Kinase 285 U/L 285 U/L Bedside Glucose 122 mg/dl 105 mg/dl Creatine Kinase MB 5.9 ng/ml Creatine Kinase MB Ratio 2.1 Troponin I 0.216 ng/ml Test 10/20/16 23:37 10/21/16 05:54 10/21/16 06:15 Bedside Glucose 135 mg/dl 132 mg/dl White Blood Count 16.40 K/uL Red Blood Count 4.27 M/uL Hemoglobin 13.5 g/dL Hematocrit 38.6 % Mean Corpuscular Volume 90.4 fL Mean Corpuscular Hemoglobin 31.6 pg Mean Corpuscular Hemoglobin Concent 35.0 g/dl Platelet Count 258 K/uL Mean Platelet Volume 9.3 fL Neutrophils (%) (Auto) 72.6 % Lymphocytes (%) (Auto) 15.4 % Monocytes (%) (Auto) 11.3 % Eosinophils (%) (Auto) 0.2 % Basophils (%) (Auto) 0.1 % Neutrophils # (Auto) 11.89 K/uL Lymphocytes # (Auto) 2.53 K/uL Monocytes # (Auto) 1.85 K/uL Eosinophils # (Auto) 0.04 K/uL Basophils # (Auto) 0.02 K/uL RDW Standard Deviation 41.5 fL RDW Coefficient of Variation 12.6 % Immature Granulocyte % (Auto) 0.4 % Immature Granulocyte # (Auto) 0.07 K/uL Prothrombin Time 10.3 SECONDS Prothromb Time International Ratio 1.0 Activated Partial Thromboplast Time 26.6 SECONDS Partial Thromboplastin Ratio 1.0 Sodium Level 142 mmol/L Potassium Level 3.3 mmol/L Chloride Level 111 mmol/L Carbon Dioxide Level 24 mmol/L Anion Gap 7.0 mmol/L Blood Urea Nitrogen 7 mg/dl Creatinine 0.74 mg/dl Est Creatinine Clear Calc Drug Dose 125.7 ml/min Estimated GFR () 123.8 Estimated GFR (Non- 106.8 BUN/Creatinine Ratio 9.0 Random Glucose 139 mg/dl Calcium Level 8.4 mg/dl Phosphorus Level 1.9 mg/dl Magnesium Level 1.7 mg/dl Total Bilirubin 0.7 mg/dl Direct Bilirubin 0.1 mg/dl Aspartate Amino Transf (AST/SGOT) 20 U/L Alanine Aminotransferase (ALT/SGPT) 19 U/L Alkaline Phosphatase 89 U/L Total Protein 5.8 gm/dl Albumin 3.3 gm/dl
[2016-10-21] MEDS: GABAPENTIN 250 MG/5 ML 470 ML BTL PO SCH ×2 (14:29→20:28)
--- NOTE | 2016-10-21 18:55 | Progress Note ---
Subjective Date of Service: Oct 21, 2016. Subjective Patient is intubated ventilated continues to be sedate he's on Precedex, no additional seizure activity seen Problem List Medical Problems: (1) Abdominal pain, left upper quadrant Status: Acute (2) Fever Status: Acute (3) Status epilepticus, generalized convulsive Status: Acute (4) Weakness Status: Acute Review of Systems Review of systems cannot be obtained due to the patient's intubation Objective Vital Signs Date Time Temp Pulse Resp B/P (MAP) Pulse Ox O2 Delivery O2 Flow Rate FiO2 10/21/16 18:21 70 16 156/92 (113) 100 CPAP Mechanical Ventilator 10/21/16 18:00 30 10/21/16 16:48 65 134/85 10/21/16 16:00 71 18 125/79 (94) 100 CPAP Mechanical Ventilator 10/21/16 14:02 30 10/21/16 14:00 72 18 148/91 (110) 100 CPAP 30 Mechanical Ventilator 10/21/16 12:00 30 10/21/16 12:00 36.9 77 18 132/87 (102) 100 CPAP 30 Mechanical Ventilator 10/21/16 12:00 30 10/21/16 11:57 76 103/64 10/21/16 11:39 30 10/21/16 10:10 82 16 104/62 (76) 96 CPAP 30 Mechanical Ventilator 10/21/16 10:00 83 16 104/62 (76) 96 CPAP 30 Mechanical Ventilator 10/21/16 09:46 85 16 103/65 (78) 96 Mechanical Ventilator 30 10/21/16 09:31 86 16 93/59 (70) 95 Mechanical Ventilator 30 10/21/16 09:16 89 16 93/65 (74) 95 Mechanical Ventilator 30 10/21/16 09:06 93 16 116/74 (88) 93 Mechanical Ventilator 30 10/21/16 09:00 96 16 112/73 (86) 94 Mechanical Ventilator 30 10/21/16 08:57 98 16 127/77 (94) 93 Mechanical Ventilator 30 10/21/16 08:52 102 16 138/79 (98) 94 Mechanical Ventilator 30 10/21/16 08:15 30 10/21/16 08:00 30 10/21/16 08:00 30 10/21/16 08:00 37.0 104 16 186/123 (144) 98 Mechanical Ventilator 30 10/21/16 08:00 Mechanical Ventilator 10/21/16 07:59 103 172/124 10/21/16 07:37 30 10/21/16 06:00 94 16 148/91 (110) 98 Mechanical Ventilator 30 10/21/16 04:50 30 10/21/16 04:00 30 10/21/16 04:00 99 Mechanical Ventilator 30 10/21/16 04:00 87 155/96 10/21/16 04:00 37.1 88 17 147/87 (107) 99 Mechanical Ventilator 30 10/21/16 02:16 85 16 146/93 (110) 10/21/16 02:00 80 14 165/94 (117) 100 Mechanical Ventilator 30 10/21/16 01:55 30 10/21/16 00:45 80 160/92 10/21/16 00:00 36.8 80 17 160/92 (114) 99 30 10/20/16 23:59 30 10/20/16 23:59 99 Mechanical Ventilator 30 10/20/16 23:29 30 10/20/16 22:26 93 159/65 10/20/16 22:01 78 15 159/95 (116) 99 Mechanical Ventilator 30 10/20/16 21:01 79 16 147/93 (111) 99 10/20/16 20:01 37.1 80 15 140/90 (107) 99 Mechanical Ventilator 30 10/20/16 20:00 99 Mechanical Ventilator 30 10/20/16 20:00 30 10/20/16 19:35 30 10/20/16 19:01 79 16 135/86 (102) 99 Physical Exam General Appearance: WD/WN, + moderate distress Respiratory/Chest: chest non-tender, + decreased breath sounds, + rhonchi Cardiovascular: regular rate, rhythm, no murmur Abdomen: normal bowel sounds, soft Extremities: no pedal edema, no calf tenderness Laboratory Results Last 24 Hours Test 10/20/16 20:57 10/20/16 22:10 10/20/16 23:37 10/21/16 05:54 Bedside Glucose 105 mg/dl 135 mg/dl 132 mg/dl Total Creatine Kinase 285 U/L Creatine Kinase MB 5.9 ng/ml Creatine Kinase MB Ratio 2.1 Troponin I 0.216 ng/ml Test 10/21/16 06:15 10/21/16 11:48 10/21/16 14:29 10/21/16 17:27 White Blood Count 16.40 K/uL Red Blood Count 4.27 M/uL Hemoglobin 13.5 g/dL Hematocrit 38.6 % Mean Corpuscular Volume 90.4 fL Mean Corpuscular Hemoglobin 31.6 pg Mean Corpuscular Hemoglobin Concent 35.0 g/dl Platelet Count 258 K/uL Mean Platelet Volume 9.3 fL Neutrophils (%) (Auto) 72.6 % Lymphocytes (%) (Auto) 15.4 % Monocytes (%) (Auto) 11.3 % Eosinophils (%) (Auto) 0.2 % Basophils (%) (Auto) 0.1 % Neutrophils # (Auto) 11.89 K/uL Lymphocytes # (Auto) 2.53 K/uL Monocytes # (Auto) 1.85 K/uL Eosinophils # (Auto) 0.04 K/uL Basophils # (Auto) 0.02 K/uL RDW Standard Deviation 41.5 fL RDW Coefficient of Variation 12.6 % Immature Granulocyte % (Auto) 0.4 % Immature Granulocyte # (Auto) 0.07 K/uL Prothrombin Time 10.3 SECONDS Prothromb Time International Ratio 1.0 Activated Partial Thromboplast Time 26.6 SECONDS Partial Thromboplastin Ratio 1.0 Sodium Level 142 mmol/L Potassium Level 3.3 mmol/L Chloride Level 111 mmol/L Carbon Dioxide Level 24 mmol/L Anion Gap 7.0 mmol/L Blood Urea Nitrogen 7 mg/dl Creatinine 0.74 mg/dl Est Creatinine Clear Calc Drug Dose 125.7 ml/min Estimated GFR () 123.8 Estimated GFR (Non- 106.8 BUN/Creatinine Ratio 9.0 Random Glucose 139 mg/dl Calcium Level 8.4 mg/dl Phosphorus Level 1.9 mg/dl Magnesium Level 1.7 mg/dl Total Bilirubin 0.7 mg/dl Direct Bilirubin 0.1 mg/dl Aspartate Amino Transf (AST/SGOT) 20 U/L Alanine Aminotransferase (ALT/SGPT) 19 U/L Alkaline Phosphatase 89 U/L Total Protein 5.8 gm/dl Albumin 3.3 gm/dl Bedside Glucose 176 mg/dl 103 mg/dl Troponin I 0.130 ng/ml Assessment and Plan 50-year-old male with status epilepticus with a history of seizure disorder requiring intubation and ventilation Acute respiratory failure in ability to protect airway, ventilated and sedated next Status epilepticus neurology is following and will continue Keppra via OG tube with Neurontin Hypokalemia will be via the ICU protocol of repletion Cardiovascular and cerebrovascular disease, patiently maintain him on his statin and beta owen Coreg via his OG tube and intravenous metoprolol appear stable at this time Concerns for possible aspiration pneumonia as elevated white count and airway protection was encouraged in will be maintained on Zosyn Elevated troponin dyslipidemia be trended likely supply demand His depressive medications and at this occurred several restarted via his OG tube Lovenox as DVT prevention
[2016-10-21] MEDS: LEVETIRACETAM SOLN 500 MG/5 ML UDP PO SCH (20:26)
[2016-10-21] MEDS: QUETIAPINE FUMARATE 300 MG TAB PO SCH (20:27)
[2016-10-21] MEDS ORDERED: CARVEDILOL 12.5 MG TAB PO SCH (21:00)
[2016-10-22] VITALS (35 sets, daily range): BP systolic 119–183; BP diastolic 72–118; PULSE 73–96; TEMP 36.8–37.2; O2SAT 90–100
[2016-10-22] MEDS: NSS + 20MEQ KCL 1000ML 1,000 ML IV SCH ×3 (00:33→17:47)
[2016-10-22] MEDS: METOPROLOL TARTRATE 1 MG/ML VIAL IV. SCH ×3 (00:34→08:50)
[2016-10-22] MEDS: PIPERACILL/TAZOBAC IV 4.5 GM in DEXTROSE 5% 100ML 100 ML IV SCH ×3 (03:53→19:42)
[2016-10-22] MEDS: HydrALAZINE HCL 20 MG/ML VIAL IV. PRN ×2 (05:17→22:06)
[2016-10-22] MEDS ORDERED: VANCOMYCIN TROUGH SCH (05:30)
[2016-10-22] MEDS: INSULIN ASPART 100 UNITS/ML 3 ML PEN SC SCH ×4 (05:54→17:47)
[2016-10-22 06:24] LABS: BASO % 0.3 %; BASO ABS # 0.03 K/uL (0-0.2); COMPLETE YES; EOS % 0.9 %; HEMATOCRIT 35.5 % (42-52); IG% 0.3 %; LYMPH % 24.9 %; MEAN CELL VOLUME 92.4 fL (80-100); MEAN CORPUSCULAR HEMOGLOBIN 31.3 pg (25-34); MEAN CORPUSCULAR HGB CONC 33.8 g/dl (32-36); MEAN PLATELET VOLUME 9.4 fL (7.4-10.4); NEUT % 61.6 %; PLATELET COUNT 199 K/uL (130-400); RED BLOOD COUNT 3.84 M/uL (4.7-6.1); WHITE BLOOD COUNT 10.45 K/uL (4.8-10.8)
[2016-10-22 07:00] LABS: PARTIAL THROMBOPLASTIN RATIO 0.9; PROTHROMBIN TIME (PATIENT) 10.2 SECONDS (9.0-12.0)
[2016-10-22 07:04] LABS: BUN/CREATININE RATIO 7.5 (10-20); CALCIUM 8.1 mg/dl (8.5-10.1); CREATININE 0.75 mg/dl (0.60-1.40); MAGNESIUM 2.1 mg/dl (1.8-2.4); POTASSIUM 3.7 mmol/L (3.5-5.1)
--- NOTE | 2016-10-22 07:10 | DIAGNOSTIC IMAGING REPORT ---
CHEST ONE VIEW PORTABLE CLINICAL HISTORY: on ventilator dyspnea COMPARISON STUDY: 2016 FINDINGS: Endotracheal tube 3 cm above the lake. Well-defined parenchymal infiltrate right base similar compared to the prior study. Nasogastric tube now inferior to the diaphragm. Lungs otherwise appear clear. IMPRESSION: Tubes and lines positioned appropriately as noted. Poorly defined parenchymal infiltrate right base. The above report was generated using voice recognition software. It may contain grammatical, syntax or spelling errors. Electronically signed by: Viral Sullivan M.D. 10/22/2016 7:08 AM Dictated Date/Time: 10/22/2016 7:08 AM
[2016-10-22] MEDS ORDERED: POTASSIUM PHOS 3 MMOL/1 ML INFUSION IV STA (07:56)
[2016-10-22 08:01] LABS: HYDROXYETHYLFLURAZEPAM CONF NEGATIVE NG/ML (CUTOFF=50); HYDROXYMIDAZOLAM 226 NG/ML (CUTOFF=50); HYDROXYTRIAZOLAM CONF NEGATIVE NG/ML (CUTOFF=50); TEMAZEPAM CONF NEGATIVE NG/ML (CUTOFF=50)
[2016-10-22] MEDS: FAMOTIDINE IV INJ 20 MG in DEXTROSE 5% 100ML 100 ML IV SCH ×2 (08:44→19:42)
[2016-10-22] MEDS: GABAPENTIN 250 MG/5 ML 470 ML BTL PO SCH ×3 (08:45→20:20)
[2016-10-22] MEDS: LEVETIRACETAM SOLN 500 MG/5 ML UDP PO SCH ×2 (08:45→20:20)
[2016-10-22] MEDS: POTASSIUM CHLORIDE 20 MEQ/15 ML UDC NG SCH ×2 (08:46→19:40)
[2016-10-22] MEDS: ASPIRIN 81 MG CHEW PO SCH (08:46)
--- NOTE | 2016-10-22 08:47 | Critical Care Progress Note ---
Critical Care Progress Note Date of Service Oct 22, 2016. Attending Dr. Hargrove Subjective The patient was admitted in status epilepticus likely due to discontinuing his meds. He required intubation and sedation. Yesterday we tried to use precedex but he was not fully awake. This morning I replaced him o CPAP/PSV and he is doing fine he remains drowsy as he received versed overnight. phosphorus replaced cultures negative vancomycin stopped procalcitonin 0.11 so we will keep the zosyn for now. Objective General Appearance: no apparent distress, other (patient appears disheveled and had endotracheal tube in place) Head: normocephalic Neck: trachea midline, no stridor, supple, Respiratory: patient with rhonchi bilaterally and without any wheezes or crackles Cardiovasular: regular rate/rhythm, no murmur, no rub, normal peripheral pulses , unable to assess JVD due to cedeño in the way Abdomen: non tender, normal bowel sounds, no rebound, no masses Upper Extremities: both upper extremities in restraints Lower Extremities: no peripheral edema noted Pulses: radial (R) (2+), radial (L) (2+), dorsalis pedis (R) (2+), dorsalis pedis (L) (2+) Neuro: other (unable to do official neuro exam as patient sedated and intubated Reflexes: patellar (R) (2+), patellar (L) (2+) Current SOFA Score SOFA Score Response (Comments) Value Platelets (x10) > 150 0 Bilirubin (mg/dL) < 1.2 0 [place] Coma Score 15 ((unable to assess officially as patient sedated)) 0 Level of Hypotension No Hypotension 0 Creatinine (mg/dL) < 1.2 0 Total 0 Previous SOFA Scores 0 Assessment & Plan 50-year-old male with a past medical history of seizure disorder, stroke, hypertension, diabetes presented to the ER via EMS after status epilepticus. He was intubated in the ED and is receiving Keppra IV for seizures. Patient has been non compliant with medications which is the likely reason for his seizure. 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 Cultures are negative we stopped vancomycin today On Pip-Tazo with blood cultures pending Will continue to monitor vitals and WCC for ongoing infection will trend lactic acid CARDIAC Patient with history of hypertension Takes Carvedilol and Lisinopril at home, currently held Currently receiving metoprolol q4 and hydralazine for systolic BP>160 Troponin peaked 0.13 and trended down likely due to sepsis Patient with hx of stroke, aspirin and statin held. Will resume once extubated RENAL FU and replete lytes UO adequate Cr down to 0.75 repleted phosphorus PSYCH Uncompliance with medications, due to worsening depression? will likely need psych referral when more clinically stable ENDO T2DM Patient started on Insulin infusion with range of 140-180 Does not appear to be on medication on home med list HbA1c 5.7 earlier this year in April, will repeat GI Patient currently NPO will feed once extyubated hopefully today Famotidine for GI prophylaxis LFT's wnl DVT Prophylaxis Lovenox SubQ FULL CODE Consults & Procedures Consultants: Neurology Procedures: Intubation EEG MRI Data Medications: Current Inpatient Medications Medications (Trade) Dose Ordered Sig/Jerson Route Start Time Stop Time Status Last Admin Dose Admin Potassium Chloride/Sodium Chloride 1,000 ml @ 125 mls/hr Q8H IV 10/20/16 08:00 11/19/16 07:59 10/22/16 00:33 125 MLS/HR Lorazepam (Ativan Inj) 1 mg Q2H PRN IV 10/20/16 06:00 11/19/16 05:59 10/21/16 05:38 1 MG Famotidine 20 mg/ Dextrose 102 ml @ 200 mls/hr Q12H IV 10/20/16 08:00 11/19/16 07:59 10/21/16 20:23 200 MLS/HR Propofol (Diprivan Iv Emulsion 100ml Vial) 1 dose UD IV 10/20/16 08:18 10/23/16 08:17 10/21/16 05:56 1 DOSE Ondansetron HCl (Zofran Inj) 4 mg Q6H PRN IV 10/20/16 06:00 11/19/16 05:59 Glucose (Glucose 40% Gel) UD PRN PO 10/20/16 06:00 11/19/16 05:59 Glucose (Glucose Chew Tab) 1 tabs UD PRN PO 10/20/16 06:00 11/19/16 05:59 Dextrose (Dextrose 50% 50ML Syringe) 50 ml UD PRN IV 10/20/16 06:00 11/19/16 05:59 Glucagon (Glucagon Inj) 1 mg UD PRN SQ 10/20/16 06:00 11/19/16 05:59 Piperacillin Sod/ Tazobactam Sod 4.5 gm/Dextrose 120 ml @ 30 mls/hr Q8H IV 10/20/16 12:00 10/27/16 11:59 10/22/16 03:53 30 MLS/HR Midazolam HCl 250 ml @ 0 mls/hr Q0M PRN IV 10/20/16 06:11 11/19/16 06:10 10/20/16 06:51 4 MLS/HR Metoprolol Tartrate (Lopressor Iv) 5 mg Q4 IV. 10/20/16 08:00 11/19/16 07:59 10/22/16 03:55 5 MG Hydralazine HCl (HydrALAZINE INJ) 10 mg Q4H PRN IV. 10/20/16 06:30 11/19/16 06:29 10/22/16 05:17 10 MG Vancomycin HCl (Consult) 1 ea UD PRN N/A 10/20/16 08:30 11/19/16 08:29 Piperacillin Sod/ Tazobactam Sod (Consult) 1 ea UD PRN N/A 10/20/16 08:30 11/19/16 08:29 Atorvastatin Calcium (Lipitor Tab) 80 mg QAM PO 10/21/16 09:00 11/20/16 08:59 10/21/16 08:58 80 MG Enoxaparin Sodium (Lovenox Inj) 40 mg QAM SQ 10/21/16 09:00 11/20/16 08:59 10/21/16 08:58 40 MG Insulin Aspart (novoLOG ASPART) SLIDING SCALE If C... Q6 SC 10/20/16 18:00 11/19/16 17:59 Potassium Chloride (Concetta Ciel Elix) 20 meq BID NG 10/21/16 09:00 11/20/16 08:59 10/21/16 20:26 20 MEQ Dexmedetomidine HCl 200 mcg/ Sodium Chloride 50 ml @ 0 mls/hr Q0M PRN IV 10/21/16 08:15 10/25/16 08:14 10/21/16 08:32 6 MLS/HR Fentanyl Citrate (Fentanyl Inj) 25 mcg Q2H PRN IV 10/21/16 08:15 11/04/16 08:14 10/21/16 08:56 25 MCG Aspirin (Aspirin Chew) 324 mg QAM PO 10/22/16 09:00 11/21/16 08:59 Carvedilol (Coreg Tab) 12.5 mg BID PO 10/21/16 21:00 11/20/16 20:59 Future Hold Lisinopril (Zestril Tab) 5 mg DAILY PO 10/22/16 09:00 11/21/16 08:59 Fluoxetine HCl (Prozac Soln) 80 mg DAILY PO 10/22/16 09:00 11/21/16 08:59 Gabapentin (Neurontin) 800 mg TID PO 10/21/16 14:00 11/20/16 13:59 10/21/16 20:28 800 MG Quetiapine Fumarate (seroQUEL TAB) 300 mg HS PO 10/21/16 21:00 11/20/16 20:59 10/21/16 20:27 300 MG Levetiracetam (Keppra Soln) 500 mg BID PO 10/21/16 21:00 11/20/16 20:59 10/21/16 20:26 500 MG Vancomycin HCl 1250 mg/Sodium Chloride 275 ml @ 125 mls/hr Q8H IV 10/21/16 14:00 10/27/16 21:59 10/21/16 22:14 125 MLS/HR Miscellaneous Information (Pending Order) 1 ea QS N/A 10/21/16 16:00 11/20/16 15:59 10/21/16 16:49 1 EA Potassium Phosphate 15 mmol/ Sodium Chloride 255 ml @ 88 mls/hr TODAY@0900 ONCE IV 10/22/16 09:00 10/22/16 11:53 Vital Signs: Date Time Temp Pulse Resp B/P (MAP) Pulse Ox O2 Delivery O2 Flow Rate FiO2 10/22/16 06:59 30 10/22/16 06:00 84 16 144/85 (104) 100 Mechanical Ventilator 30 10/22/16 05:45 82 18 148/84 (105) 100 10/22/16 05:30 79 16 146/83 (104) 100 10/22/16 05:15 75 14 163/95 (117) 100 10/22/16 05:12 30 10/22/16 04:45 73 15 163/99 (120) 10/22/16 04:37 77 15 176/108 (130) 100 10/22/16 04:34 80 15 183/110 (134) 100 10/22/16 04:22 75 18 165/118 (134) 100 10/22/16 04:15 75 14 153/97 (115) 100 10/22/16 04:00 36.9 73 14 151/97 (115) 99 Mechanical Ventilator 30 10/22/16 04:00 98 Mechanical Ventilator 30 10/22/16 04:00 30 10/22/16 03:55 73 144/90 10/22/16 03:45 79 14 144/90 (108) 98 10/22/16 03:30 78 14 143/91 (108) 98 10/22/16 03:15 80 14 134/86 (102) 97 10/22/16 03:00 80 14 133/86 (102) 97 10/22/16 02:45 79 14 139/86 (103) 98 10/22/16 02:30 76 14 141/91 (108) 99 10/22/16 02:15 76 14 142/87 (105) 98 10/22/16 02:00 77 14 131/84 (100) 97 Mechanical Ventilator 30 10/22/16 02:00 30 10/22/16 01:15 78 14 141/92 (108) 98 10/22/16 01:00 77 14 141/92 (108) 99 10/22/16 00:45 77 14 152/95 (114) 99 10/22/16 00:34 82 136/89 10/22/16 00:30 81 18 136/89 (105) 97 10/22/16 00:15 79 17 148/95 (112) 99 10/22/16 00:00 36.8 78 21 119/72 (88) 99 Mechanical Ventilator 30 10/21/16 23:59 98 Mechanical Ventilator 30 10/21/16 23:59 30 10/21/16 23:45 84 14 123/78 (93) 98 10/21/16 23:30 82 14 120/74 (89) 96 10/21/16 23:15 82 14 120/72 (88) 97 10/21/16 23:00 86 12 121/76 (91) 97 10/21/16 22:45 86 16 113/74 (87) 96 10/21/16 22:30 86 14 114/72 (86) 96 10/21/16 22:15 85 14 119/73 (88) 97 10/21/16 22:00 87 15 120/72 (88) 96 Mechanical Ventilator 30 10/21/16 22:00 30 10/21/16 21:45 87 15 116/69 (85) 96 10/21/16 21:30 88 15 114/70 (85) 95 10/21/16 21:15 82 15 119/72 (88) 93 10/21/16 21:00 77 14 154/96 (115) 98 Mechanical Ventilator 30 10/21/16 20:45 74 14 169/96 (120) 96 10/21/16 20:30 78 14 158/93 (114) 95 10/21/16 20:24 78 148/87 10/21/16 20:15 37.4 75 16 148/87 (107) 100 Mechanical Ventilator 30 10/21/16 20:00 30 10/21/16 20:00 75 17 147/82 (103) 10/21/16 20:00 99 Mechanical Ventilator 30 10/21/16 19:45 68 12 125/73 (90) 99 10/21/16 19:30 73 19 145/81 (102) 99 10/21/16 19:15 74 19 145/85 (105) 99 10/21/16 19:12 30 10/21/16 19:00 91 9 159/92 (114) 97 10/21/16 18:21 70 16 156/92 (113) 100 CPAP Mechanical Ventilator 10/21/16 18:00 30 10/21/16 16:48 65 134/85 10/21/16 16:00 71 18 125/79 (94) 100 CPAP Mechanical Ventilator 10/21/16 14:02 30 10/21/16 14:00 72 18 148/91 (110) 100 CPAP 30 Mechanical Ventilator 10/21/16 12:00 30 10/21/16 12:00 36.9 77 18 132/87 (102) 100 CPAP 30 Mechanical Ventilator 10/21/16 12:00 30 10/21/16 11:57 76 103/64 10/21/16 11:39 30 10/21/16 10:10 82 16 104/62 (76) 96 CPAP 30 Mechanical Ventilator 10/21/16 10:00 83 16 104/62 (76) 96 CPAP 30 Mechanical Ventilator 10/21/16 09:46 85 16 103/65 (78) 96 Mechanical Ventilator 30 10/21/16 09:31 86 16 93/59 (70) 95 Mechanical Ventilator 30 10/21/16 09:16 89 16 93/65 (74) 95 Mechanical Ventilator 30 10/21/16 09:06 93 16 116/74 (88) 93 Mechanical Ventilator 30 10/21/16 09:00 96 16 112/73 (86) 94 Mechanical Ventilator 30 10/21/16 08:57 98 16 127/77 (94) 93 Mechanical Ventilator 30 10/21/16 08:52 102 16 138/79 (98) 94 Mechanical Ventilator 30 Laboratory Results: Last 24 Hours Test 10/21/16 11:48 10/21/16 14:29 10/21/16 17:27 10/21/16 22:02 Bedside Glucose 176 mg/dl 103 mg/dl Troponin I 0.130 ng/ml 0.094 ng/ml Test 10/22/16 00:30 10/22/16 05:52 10/22/16 05:53 Bedside Glucose 112 mg/dl 104 mg/dl White Blood Count 10.45 K/uL Red Blood Count 3.84 M/uL Hemoglobin 12.0 g/dL Hematocrit 35.5 % Mean Corpuscular Volume 92.4 fL Mean Corpuscular Hemoglobin 31.3 pg Mean Corpuscular Hemoglobin Concent 33.8 g/dl Platelet Count 199 K/uL Mean Platelet Volume 9.4 fL Neutrophils (%) (Auto) 61.6 % Lymphocytes (%) (Auto) 24.9 % Monocytes (%) (Auto) 12.0 % Eosinophils (%) (Auto) 0.9 % Basophils (%) (Auto) 0.3 % Neutrophils # (Auto) 6.45 K/uL Lymphocytes # (Auto) 2.60 K/uL Monocytes # (Auto) 1.25 K/uL Eosinophils # (Auto) 0.09 K/uL Basophils # (Auto) 0.03 K/uL RDW Standard Deviation 43.5 fL RDW Coefficient of Variation 12.8 % Immature Granulocyte % (Auto) 0.3 % Immature Granulocyte # (Auto) 0.03 K/uL Prothrombin Time 10.2 SECONDS Prothromb Time International Ratio 1.0 Activated Partial Thromboplast Time 23.1 SECONDS Partial Thromboplastin Ratio 0.9 Sodium Level 145 mmol/L Potassium Level 3.7 mmol/L Chloride Level 115 mmol/L Carbon Dioxide Level 23 mmol/L Anion Gap 7.0 mmol/L Blood Urea Nitrogen 6 mg/dl Creatinine 0.75 mg/dl Est Creatinine Clear Calc Drug Dose 124.1 ml/min Estimated GFR () 123.1 Estimated GFR (Non- 106.2 BUN/Creatinine Ratio 7.5 Random Glucose 102 mg/dl Calcium Level 8.1 mg/dl Phosphorus Level 2.0 mg/dl Magnesium Level 2.1 mg/dl Total Bilirubin 0.8 mg/dl Direct Bilirubin 0.2 mg/dl Aspartate Amino Transf (AST/SGOT) 10 U/L Alanine Aminotransferase (ALT/SGPT) 14 U/L Alkaline Phosphatase 73 U/L Total Protein 5.4 gm/dl Albumin 2.8 gm/dl Vancomycin Level Trough 22.6 mcg/ml
[2016-10-22] MEDS: LISINOPRIL 5 MG TAB PO SCH (08:51)
[2016-10-22] MEDS: ATORVASTATIN 40 MG TAB PO SCH (08:51)
[2016-10-22] MEDS: ENOXAPARIN 40 MG/0.4 ML SYR SQ SCH (08:51)
[2016-10-22] MEDS ORDERED: FLUOXETINE HCL 20 MG/5 ML PO SCH (09:00)
[2016-10-22] MEDS ORDERED: POTASSIUM PHOSPHATE INJ 15 MMOL in SODIUM CHLORIDE 0.9% 250ML 250 ML IV ONE (09:00)
--- NOTE | 2016-10-22 10:20 | Neurology Progress Notes ---
Neurology Progress Note Date of Service Oct 22, 2016. Subjective Follow-up for seizure disorder Case discussed with patient's nurse at bedside earlier this morning. He has not had any observed seizure activity during the course of his hospitalization or overnight. He will be extubated from the mechanical ventilator today. The levetiracetam IV has been discontinued and there are orders for levetiracetam tablets. I do not see orders for his Lamictal tablets which is his regular anticonvulsant as an outpatient. Objective Date Time Temp Pulse Resp B/P (MAP) Pulse Ox O2 Delivery O2 Flow Rate FiO2 10/22/16 08:50 85 172/92 10/22/16 06:59 30 10/22/16 06:00 84 16 144/85 (104) 100 Mechanical Ventilator 30 10/22/16 05:45 82 18 148/84 (105) 100 10/22/16 05:30 79 16 146/83 (104) 100 10/22/16 05:15 75 14 163/95 (117) 100 10/22/16 05:12 30 10/22/16 04:45 73 15 163/99 (120) 10/22/16 04:37 77 15 176/108 (130) 100 10/22/16 04:34 80 15 183/110 (134) 100 10/22/16 04:22 75 18 165/118 (134) 100 10/22/16 04:15 75 14 153/97 (115) 100 10/22/16 04:00 36.9 73 14 151/97 (115) 99 Mechanical Ventilator 30 10/22/16 04:00 98 Mechanical Ventilator 30 10/22/16 04:00 30 10/22/16 03:55 73 144/90 10/22/16 03:45 79 14 144/90 (108) 98 10/22/16 03:30 78 14 143/91 (108) 98 10/22/16 03:15 80 14 134/86 (102) 97 10/22/16 03:00 80 14 133/86 (102) 97 10/22/16 02:45 79 14 139/86 (103) 98 10/22/16 02:30 76 14 141/91 (108) 99 10/22/16 02:15 76 14 142/87 (105) 98 10/22/16 02:00 77 14 131/84 (100) 97 Mechanical Ventilator 30 10/22/16 02:00 30 10/22/16 01:15 78 14 141/92 (108) 98 10/22/16 01:00 77 14 141/92 (108) 99 10/22/16 00:45 77 14 152/95 (114) 99 10/22/16 00:34 82 136/89 10/22/16 00:30 81 18 136/89 (105) 97 10/22/16 00:15 79 17 148/95 (112) 99 10/22/16 00:00 36.8 78 21 119/72 (88) 99 Mechanical Ventilator 30 10/21/16 23:59 98 Mechanical Ventilator 30 10/21/16 23:59 30 10/21/16 23:45 84 14 123/78 (93) 98 10/21/16 23:30 82 14 120/74 (89) 96 10/21/16 23:15 82 14 120/72 (88) 97 10/21/16 23:00 86 12 121/76 (91) 97 10/21/16 22:45 86 16 113/74 (87) 96 10/21/16 22:30 86 14 114/72 (86) 96 10/21/16 22:15 85 14 119/73 (88) 97 10/21/16 22:00 87 15 120/72 (88) 96 Mechanical Ventilator 30 10/21/16 22:00 30 10/21/16 21:45 87 15 116/69 (85) 96 10/21/16 21:30 88 15 114/70 (85) 95 10/21/16 21:15 82 15 119/72 (88) 93 10/21/16 21:00 77 14 154/96 (115) 98 Mechanical Ventilator 30 10/21/16 20:45 74 14 169/96 (120) 96 10/21/16 20:30 78 14 158/93 (114) 95 10/21/16 20:24 78 148/87 10/21/16 20:15 37.4 75 16 148/87 (107) 100 Mechanical Ventilator 30 10/21/16 20:00 30 10/21/16 20:00 75 17 147/82 (103) 10/21/16 20:00 99 Mechanical Ventilator 30 10/21/16 19:45 68 12 125/73 (90) 99 10/21/16 19:30 73 19 145/81 (102) 99 10/21/16 19:15 74 19 145/85 (105) 99 10/21/16 19:12 30 10/21/16 19:00 91 9 159/92 (114) 97 10/21/16 18:21 70 16 156/92 (113) 100 CPAP Mechanical Ventilator 10/21/16 18:00 30 10/21/16 16:48 65 134/85 10/21/16 16:00 71 18 125/79 (94) 100 CPAP Mechanical Ventilator 10/21/16 14:02 30 10/21/16 14:00 72 18 148/91 (110) 100 CPAP 30 Mechanical Ventilator 10/21/16 12:00 30 10/21/16 12:00 36.9 77 18 132/87 (102) 100 CPAP 30 Mechanical Ventilator 10/21/16 12:00 30 10/21/16 11:57 76 103/64 10/21/16 11:39 30 Last 24 Hours Test 10/21/16 11:48 10/21/16 14:29 10/21/16 17:27 10/21/16 22:02 Bedside Glucose 176 mg/dl 103 mg/dl Troponin I 0.130 ng/ml 0.094 ng/ml Test 10/22/16 00:30 10/22/16 05:52 10/22/16 05:53 10/22/16 09:25 Bedside Glucose 112 mg/dl 104 mg/dl White Blood Count 10.45 K/uL Red Blood Count 3.84 M/uL Hemoglobin 12.0 g/dL Hematocrit 35.5 % Mean Corpuscular Volume 92.4 fL Mean Corpuscular Hemoglobin 31.3 pg Mean Corpuscular Hemoglobin Concent 33.8 g/dl Platelet Count 199 K/uL Mean Platelet Volume 9.4 fL Neutrophils (%) (Auto) 61.6 % Lymphocytes (%) (Auto) 24.9 % Monocytes (%) (Auto) 12.0 % Eosinophils (%) (Auto) 0.9 % Basophils (%) (Auto) 0.3 % Neutrophils # (Auto) 6.45 K/uL Lymphocytes # (Auto) 2.60 K/uL Monocytes # (Auto) 1.25 K/uL Eosinophils # (Auto) 0.09 K/uL Basophils # (Auto) 0.03 K/uL RDW Standard Deviation 43.5 fL RDW Coefficient of Variation 12.8 % Immature Granulocyte % (Auto) 0.3 % Immature Granulocyte # (Auto) 0.03 K/uL Prothrombin Time 10.2 SECONDS Prothromb Time International Ratio 1.0 Activated Partial Thromboplast Time 23.1 SECONDS Partial Thromboplastin Ratio 0.9 Sodium Level 145 mmol/L Potassium Level 3.7 mmol/L Chloride Level 115 mmol/L Carbon Dioxide Level 23 mmol/L Anion Gap 7.0 mmol/L Blood Urea Nitrogen 6 mg/dl Creatinine 0.75 mg/dl Est Creatinine Clear Calc Drug Dose 124.1 ml/min Estimated GFR () 123.1 Estimated GFR (Non- 106.2 BUN/Creatinine Ratio 7.5 Random Glucose 102 mg/dl Calcium Level 8.1 mg/dl Phosphorus Level 2.0 mg/dl Magnesium Level 2.1 mg/dl Total Bilirubin 0.8 mg/dl Direct Bilirubin 0.2 mg/dl Aspartate Amino Transf (AST/SGOT) 10 U/L Alanine Aminotransferase (ALT/SGPT) 14 U/L Alkaline Phosphatase 73 U/L Total Protein 5.4 gm/dl Albumin 2.8 gm/dl Vancomycin Level Trough 22.6 mcg/ml Exam: As indicated above, the patient was examined earlier this morning. He was lying comfortably in bed, sedated, and on the mechanical ventilator at that time. No abnormal movements observed. His chronic right hemiparesis was again observed. Current Inpatient Medications Medications (Trade) Dose Ordered Sig/Jerson Route Start Time Stop Time Status Last Admin Dose Admin Potassium Chloride/Sodium Chloride 1,000 ml @ 125 mls/hr Q8H IV 10/20/16 08:00 11/19/16 07:59 10/22/16 08:40 125 MLS/HR Lorazepam (Ativan Inj) 1 mg Q2H PRN IV 10/20/16 06:00 11/19/16 05:59 10/21/16 05:38 1 MG Famotidine 20 mg/ Dextrose 102 ml @ 200 mls/hr Q12H IV 10/20/16 08:00 11/19/16 07:59 10/22/16 08:44 200 MLS/HR Propofol (Diprivan Iv Emulsion 100ml Vial) 1 dose UD IV 10/20/16 08:18 10/23/16 08:17 10/21/16 05:56 1 DOSE Ondansetron HCl (Zofran Inj) 4 mg Q6H PRN IV 10/20/16 06:00 11/19/16 05:59 Glucose (Glucose 40% Gel) UD PRN PO 10/20/16 06:00 11/19/16 05:59 Glucose (Glucose Chew Tab) 1 tabs UD PRN PO 10/20/16 06:00 11/19/16 05:59 Dextrose (Dextrose 50% 50ML Syringe) 50 ml UD PRN IV 10/20/16 06:00 11/19/16 05:59 Glucagon (Glucagon Inj) 1 mg UD PRN SQ 10/20/16 06:00 11/19/16 05:59 Piperacillin Sod/ Tazobactam Sod 4.5 gm/Dextrose 120 ml @ 30 mls/hr Q8H IV 10/20/16 12:00 10/27/16 11:59 10/22/16 03:53 30 MLS/HR Midazolam HCl 250 ml @ 0 mls/hr Q0M PRN IV 10/20/16 06:11 11/19/16 06:10 10/20/16 06:51 4 MLS/HR Metoprolol Tartrate (Lopressor Iv) 5 mg Q4 IV. 10/20/16 08:00 11/19/16 07:59 10/22/16 08:50 5 MG Hydralazine HCl (HydrALAZINE INJ) 10 mg Q4H PRN IV. 10/20/16 06:30 11/19/16 06:29 10/22/16 05:17 10 MG Piperacillin Sod/ Tazobactam Sod (Consult) 1 ea UD PRN N/A 10/20/16 08:30 11/19/16 08:29 Atorvastatin Calcium (Lipitor Tab) 80 mg QAM PO 10/21/16 09:00 11/20/16 08:59 10/22/16 08:51 80 MG Enoxaparin Sodium (Lovenox Inj) 40 mg QAM SQ 10/21/16 09:00 11/20/16 08:59 10/22/16 08:51 40 MG Insulin Aspart (novoLOG ASPART) SLIDING SCALE If C... Q6 SC 10/20/16 18:00 11/19/16 17:59 Potassium Chloride (Concetta Ciel Elix) 20 meq BID NG 10/21/16 09:00 11/20/16 08:59 10/22/16 08:46 20 MEQ Dexmedetomidine HCl 200 mcg/ Sodium Chloride 50 ml @ 0 mls/hr Q0M PRN IV 10/21/16 08:15 10/25/16 08:14 10/21/16 08:32 6 MLS/HR Fentanyl Citrate (Fentanyl Inj) 25 mcg Q2H PRN IV 10/21/16 08:15 11/04/16 08:14 10/21/16 08:56 25 MCG Aspirin (Aspirin Chew) 324 mg QAM PO 10/22/16 09:00 11/21/16 08:59 10/22/16 08:46 324 MG Carvedilol (Coreg Tab) 12.5 mg BID PO 10/21/16 21:00 11/20/16 20:59 Future Hold Lisinopril (Zestril Tab) 5 mg DAILY PO 10/22/16 09:00 11/21/16 08:59 10/22/16 08:51 5 MG Fluoxetine HCl (Prozac Soln) 80 mg DAILY PO 10/22/16 09:00 11/21/16 08:59 10/22/16 08:51 80 MG Gabapentin (Neurontin) 800 mg TID PO 10/21/16 14:00 11/20/16 13:59 10/22/16 08:45 800 MG Quetiapine Fumarate (seroQUEL TAB) 300 mg HS PO 10/21/16 21:00 11/20/16 20:59 10/21/16 20:27 300 MG Levetiracetam (Keppra Soln) 500 mg BID PO 10/21/16 21:00 11/20/16 20:59 10/22/16 08:45 500 MG Miscellaneous Information (Pending Order) 1 ea QS N/A 10/21/16 16:00 11/20/16 15:59 10/21/16 16:49 1 EA Potassium Phosphate 15 mmol/ Sodium Chloride 255 ml @ 88 mls/hr TODAY@0900 ONCE IV 10/22/16 09:00 10/22/16 11:53 10/22/16 08:44 88 MLS/HR Impression This patient has been neurologically stable. No signs of seizure activity during this hospitalization. 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 He has a history of noncompliance with his anticonvulsants which was a factor in his recent hospitalization. Plan Agree with switching Keppra to 500 mg by mouth twice daily Would also restart this patient's Lamictal. I will order Lamictal 150 mg by mouth twice a day at this time. (This dose is lower than his usual 250 mg twice daily, although he is now taking Keppra which will function as an adjunctive anticonvulsant and should allow for a lower dose of Lamictal at this time.) I will make further dosage adjustments depending on his clinical status going forward.
[2016-10-22] MEDS ORDERED: NURSING VERBAL MED ORDER ONE ×2 (11:00→20:15)
--- NOTE | 2016-10-22 13:09 | Progress Note ---
Subjective Date of Service: Oct 22, 2016. Subjective This morning the patient's sedation has been lightened and he can put on CPAP. He is able to flutter his eyelids but not completely open his eyes he is able take a deep breath with reasonable tidal volumes after speaking to the ship's officer attempts at extubation will be undertaken this afternoon once his sedation fully clears Problem List Medical Problems: (1) Abdominal pain, left upper quadrant Status: Acute (2) Fever Status: Acute (3) Status epilepticus, generalized convulsive Status: Acute (4) Weakness Status: Acute Review of Systems Review of systems cannot be undertaken because of the patient's sedation Objective Vital Signs Date Time Temp Pulse Resp B/P (MAP) Pulse Ox O2 Delivery O2 Flow Rate FiO2 10/22/16 12:00 37.1 78 18 131/78 (95) 94 Room Air 10/22/16 12:00 Room Air 10/22/16 11:00 78 19 128/72 (90) 100 Nasal Cannula 3.0 10/22/16 10:00 92 24 164/89 (114) 98 Nasal Cannula 3.0 10/22/16 08:50 85 172/92 10/22/16 08:00 30 10/22/16 08:00 Mechanical Ventilator 30 10/22/16 08:00 37.1 82 16 164/90 (114) 100 Mechanical Ventilator 30 10/22/16 07:00 84 15 156/93 (114) 100 Mechanical Ventilator 30 10/22/16 06:59 30 10/22/16 06:00 84 16 144/85 (104) 100 Mechanical Ventilator 10/22/16 05:45 82 18 148/84 (105) 10/22/16 05:30 79 16 146/83 (104) 10/22/16 05:15 75 14 163/95 (117) 10/22/16 05:12 30 10/22/16 04:45 73 15 163/99 (120) 10/22/16 04:37 77 15 176/108 (130) 10/22/16 04:34 80 15 183/110 (134) 10/22/16 04:22 75 18 165/118 (134) 10/22/16 04:15 75 14 153/97 (115) 10/22/16 04:00 36.9 73 14 151/97 (115) 99 Mechanical Ventilator 30 10/22/16 04:00 98 Mechanical Ventilator 30 10/22/16 04:00 30 10/22/16 03:55 73 144/90 10/22/16 03:45 79 14 144/90 (108) 98 10/22/16 03:30 78 14 143/91 (108) 98 10/22/16 03:15 80 14 134/86 (102) 97 10/22/16 03:00 80 14 133/86 (102) 97 10/22/16 02:45 79 14 139/86 (103) 98 10/22/16 02:30 76 14 141/91 (108) 99 10/22/16 02:15 76 14 142/87 (105) 98 10/22/16 02:00 77 14 131/84 (100) 97 Mechanical Ventilator 30 10/22/16 02:00 30 10/22/16 01:15 78 14 141/92 (108) 98 10/22/16 01:00 77 14 141/92 (108) 99 10/22/16 00:45 77 14 152/95 (114) 99 10/22/16 00:34 82 136/89 10/22/16 00:30 81 18 136/89 (105) 97 10/22/16 00:15 79 17 148/95 (112) 99 10/22/16 00:00 36.8 78 21 119/72 (88) 99 Mechanical Ventilator 30 10/21/16 23:59 98 Mechanical Ventilator 30 10/21/16 23:59 30 10/21/16 23:45 84 14 123/78 (93) 98 10/21/16 23:30 82 14 120/74 (89) 96 10/21/16 23:15 82 14 120/72 (88) 97 10/21/16 23:00 86 12 121/76 (91) 97 10/21/16 22:45 86 16 113/74 (87) 96 10/21/16 22:30 86 14 114/72 (86) 96 10/21/16 22:15 85 14 119/73 (88) 97 10/21/16 22:00 87 15 120/72 (88) 96 Mechanical Ventilator 30 10/21/16 22:00 30 10/21/16 21:45 87 15 116/69 (85) 96 10/21/16 21:30 88 15 114/70 (85) 95 10/21/16 21:15 82 15 119/72 (88) 93 10/21/16 21:00 77 14 154/96 (115) 98 Mechanical Ventilator 30 10/21/16 20:45 74 14 169/96 (120) 96 10/21/16 20:30 78 14 158/93 (114) 95 10/21/16 20:24 78 148/87 10/21/16 20:15 37.4 75 16 148/87 (107) 100 Mechanical Ventilator 30 10/21/16 20:00 30 10/21/16 20:00 75 17 147/82 (103) 10/21/16 20:00 99 Mechanical Ventilator 30 10/21/16 19:45 68 12 125/73 (90) 99 10/21/16 19:30 73 19 145/81 (102) 99 10/21/16 19:15 74 19 145/85 (105) 99 10/21/16 19:12 30 10/21/16 19:00 91 9 159/92 (114) 97 10/21/16 18:21 70 16 156/92 (113) 100 CPAP Mechanical Ventilator 10/21/16 18:00 30 10/21/16 16:48 65 134/85 10/21/16 16:00 71 18 125/79 (94) 100 CPAP Mechanical Ventilator 10/21/16 14:02 30 10/21/16 14:00 72 18 148/91 (110) 100 CPAP 30 Mechanical Ventilator Physical Exam General Appearance: WD/WN, + mild distress Eyes: PERRL, sclerae normal Respiratory/Chest: chest non-tender, lungs clear, normal breath sounds Cardiovascular: regular rate, rhythm, no murmur Abdomen: normal bowel sounds, non tender, soft Extremities: no pedal edema, no calf tenderness Laboratory Results Last 24 Hours Test 10/21/16 14:29 10/21/16 17:27 10/21/16 22:02 10/22/16 00:30 Troponin I 0.130 ng/ml 0.094 ng/ml Bedside Glucose 103 mg/dl 112 mg/dl Test 10/22/16 05:52 10/22/16 05:53 10/22/16 09:25 10/22/16 11:22 Bedside Glucose 104 mg/dl 143 mg/dl White Blood Count 10.45 K/uL Red Blood Count 3.84 M/uL Hemoglobin 12.0 g/dL Hematocrit 35.5 % Mean Corpuscular Volume 92.4 fL Mean Corpuscular Hemoglobin 31.3 pg Mean Corpuscular Hemoglobin Concent 33.8 g/dl Platelet Count 199 K/uL Mean Platelet Volume 9.4 fL Neutrophils (%) (Auto) 61.6 % Lymphocytes (%) (Auto) 24.9 % Monocytes (%) (Auto) 12.0 % Eosinophils (%) (Auto) 0.9 % Basophils (%) (Auto) 0.3 % Neutrophils # (Auto) 6.45 K/uL Lymphocytes # (Auto) 2.60 K/uL Monocytes # (Auto) 1.25 K/uL Eosinophils # (Auto) 0.09 K/uL Basophils # (Auto) 0.03 K/uL RDW Standard Deviation 43.5 fL RDW Coefficient of Variation 12.8 % Immature Granulocyte % (Auto) 0.3 % Immature Granulocyte # (Auto) 0.03 K/uL Prothrombin Time 10.2 SECONDS Prothromb Time International Ratio 1.0 Activated Partial Thromboplast Time 23.1 SECONDS Partial Thromboplastin Ratio 0.9 Sodium Level 145 mmol/L Potassium Level 3.7 mmol/L Chloride Level 115 mmol/L Carbon Dioxide Level 23 mmol/L Anion Gap 7.0 mmol/L Blood Urea Nitrogen 6 mg/dl Creatinine 0.75 mg/dl Est Creatinine Clear Calc Drug Dose 124.1 ml/min Estimated GFR () 123.1 Estimated GFR (Non- 106.2 BUN/Creatinine Ratio 7.5 Random Glucose 102 mg/dl Calcium Level 8.1 mg/dl Phosphorus Level 2.0 mg/dl Magnesium Level 2.1 mg/dl Total Bilirubin 0.8 mg/dl Direct Bilirubin 0.2 mg/dl Aspartate Amino Transf (AST/SGOT) 10 U/L Alanine Aminotransferase (ALT/SGPT) 14 U/L Alkaline Phosphatase 73 U/L Total Protein 5.4 gm/dl Albumin 2.8 gm/dl Vancomycin Level Trough 22.6 mcg/ml Lactic Acid Level 1.0 mmol/L Assessment and Plan 50-year-old male with status epilepticus with a history of seizure disorder requiring intubation and ventilation, now seeming to improve likely seizure for result of medical noncompliance attempts at extubation 10/22 Acute respiratory failure is resolving Status epilepticus has resolved neurology is following and will continue Keppra via OG tube with Neurontin changed a few minutes unable Cardiovascular and cerebrovascular disease, patiently maintain him on his statin and beta owen Coreg via his OG tube and intravenous metoprolol continue Concerns for possible aspiration pneumonia Zosyn Elevated troponin likely due to stress initial event His anti depressive medications and at this occurred several restarted via his OG tube Lovenox as DVT prevention
[2016-10-22] MEDS: CARVEDILOL 12.5 MG TAB PO SCH ×2 (13:25→20:17)
[2016-10-22 18:19] LABS: POTASSIUM 4.5 mmol/L (3.5-5.1)
[2016-10-22] MEDS ORDERED: ACETAMINOPHEN 325 MG TAB ONE (20:14)
[2016-10-22] MEDS: QUETIAPINE FUMARATE 300 MG TAB PO SCH (20:21)
[2016-10-22] MEDS ORDERED: SODIUM CHLORIDE 0.9% 1000ML 1,000 ML IV SCH (20:30)
[2016-10-23] VITALS (14 sets, daily range): BP systolic 120–184; BP diastolic 75–102; PULSE 78–126; TEMP 36.6–37.2; O2SAT 91–99
[2016-10-23] MEDS: HydrALAZINE HCL 20 MG/ML VIAL IV. PRN ×3 (01:33→23:41)
[2016-10-23] MEDS: FENTANYL CITRATE INJ 50 MCG/1 ML 2 ML VIAL IV PRN (01:34)
[2016-10-23] MEDS: PIPERACILL/TAZOBAC IV 4.5 GM in DEXTROSE 5% 100ML 100 ML IV SCH ×3 (03:40→20:19)
[2016-10-23 06:23] LABS: BASO % 0.5 %; BASO ABS # 0.05 K/uL (0-0.2); COMPLETE YES; EOS % 2.2 %; HEMATOCRIT 37.2 % (42-52); IG% 0.5 %; LYMPH % 22.8 %; LYMPH ABS # 2.39 K/uL (1.2-3.4); MEAN CELL VOLUME 90.7 fL (80-100); MEAN CORPUSCULAR HEMOGLOBIN 31.7 pg (25-34); MEAN CORPUSCULAR HGB CONC 34.9 g/dl (32-36); MEAN PLATELET VOLUME 9.2 fL (7.4-10.4); MONO % 11.5 %; NEUT % 62.5 %; PLATELET COUNT 213 K/uL (130-400)
[2016-10-23 06:36] LABS: PARTIAL THROMBOPLASTIN RATIO 1.1; PROTHROMBIN TIME (PATIENT) 10.7 SECONDS (9.0-12.0)
[2016-10-23 07:25] LABS: ALKALINE PHOSPHATASE 78 U/L (45-117); ALT/SGPT 14 U/L (12-78); AST/SGOT 12 U/L (15-37); BUN/CREATININE RATIO 3.7 (10-20); CARBON DIOXIDE 24 mmol/L (21-32); CHLORIDE 112 mmol/L (98-107); CREATININE 0.81 mg/dl (0.60-1.40); GLUCOSE 129 mg/dl (70-99); MAGNESIUM 1.8 mg/dl (1.8-2.4); PHOSPHORUS 2.1 mg/dl (2.5-4.9); POTASSIUM 3.2 mmol/L (3.5-5.1); SODIUM 144 mmol/L (136-145)
[2016-10-23 07:39] LABS: BLOOD UREA NITROGEN 3 mg/dl (7-18)
[2016-10-23] MEDS: INSULIN ASPART 100 UNITS/ML 3 ML PEN SC SCH ×6 (08:01→22:00)
[2016-10-23] MEDS ORDERED: NURSING VERBAL MED ORDER ONE ×2 (08:15→16:30)
[2016-10-23] MEDS: POTASSIUM CHLORIDE 10 MEQ TABCR PO SCH ×2 (08:51→16:08)
[2016-10-23] MEDS: GABAPENTIN 800 MG TAB PO SCH ×3 (08:51→20:23)
[2016-10-23] MEDS: FLUOXETINE HCL 20 MG CAP PO SCH (08:51)
[2016-10-23] MEDS: LEVETIRACETAM 500 MG TAB PO SCH ×2 (08:51→20:25)
[2016-10-23] MEDS: FAMOTIDINE IV INJ 20 MG in DEXTROSE 5% 100ML 100 ML IV SCH (08:52)
[2016-10-23] MEDS: LISINOPRIL 5 MG TAB PO SCH (08:56)
[2016-10-23] MEDS: ATORVASTATIN 40 MG TAB PO SCH (08:56)
[2016-10-23] MEDS: ENOXAPARIN 40 MG/0.4 ML SYR SQ SCH (08:57)
[2016-10-23] MEDS: CARVEDILOL 12.5 MG TAB PO SCH ×2 (08:57→20:24)
[2016-10-23] MEDS: ASPIRIN 81 MG CHEW PO SCH (08:57)
[2016-10-23] MEDS: ACETAMINOPHEN 325 MG TAB PO PRN ×2 (09:44→17:53)
--- NOTE | 2016-10-23 13:21 | Progress Note ---
Subjective Date of Service: Oct 23, 2016. Subjective pt is awake and extubated, he is conversant but has obvious limitations in communication. has no recollection of events leading up to this event Problem List Medical Problems: (1) Abdominal pain, left upper quadrant Status: Acute (2) Fever Status: Acute (3) Status epilepticus, generalized convulsive Status: Acute (4) Weakness Status: Acute Review of Systems Constitutional: No fever, No chills Respiratory: No cough, No wheezing Cardiac: No chest pain, No orthopnea Abdomen: No pain, No nausea, No vomiting, No diarrhea Neurologic: No memory loss, No weakness Psychiatric: No depression symptoms, No anhedonism Objective Vital Signs Date Time Temp Pulse Resp B/P (MAP) Pulse Ox O2 Delivery O2 Flow Rate FiO2 10/23/16 12:01 106 16 131/94 (106) 93 Room Air 10/23/16 12:00 Room Air 10/23/16 09:37 36.6 126 23 152/91 (111) 94 Room Air 10/23/16 08:00 Room Air 10/23/16 07:00 111 16 170/102 (124) 92 Room Air 10/23/16 06:00 95 17 184/101 (128) 93 Room Air 10/23/16 05:00 96 18 163/97 (119) 91 10/23/16 04:00 Room Air 10/23/16 04:00 37.2 101 18 158/99 (118) 92 Room Air 10/23/16 02:00 95 18 130/86 (101) 10/23/16 01:00 84 19 167/98 (121) 93 10/23/16 00:07 37.2 93 18 159/98 (118) 97 10/22/16 23:59 Room Air 10/22/16 22:00 88 18 162/108 (126) 10/22/16 21:22 96 24 175/116 (135) 90 10/22/16 20:51 37.2 90 22 181/110 (133) 96 10/22/16 20:00 Room Air 10/22/16 18:00 83 20 163/94 (117) 94 Room Air 10/22/16 16:00 Room Air 10/22/16 16:00 37.0 80 21 148/91 (110) 95 Room Air 10/22/16 14:00 78 22 135/74 (94) 94 Room Air Physical Exam General Appearance: WD/WN, + mild distress Eyes: PERRL, EOMI Respiratory/Chest: chest non-tender, lungs clear Cardiovascular: regular rate, rhythm, no murmur Abdomen: normal bowel sounds, non tender, soft Neurologic/Psychiatric: alert, + disoriented Laboratory Results Last 24 Hours Test 10/22/16 17:36 10/22/16 17:49 10/23/16 00:05 10/23/16 06:14 Bedside Glucose 84 mg/dl 141 mg/dl Potassium Level 4.5 mmol/L 3.2 mmol/L Chemistry Specimen Hemolysis White Blood Count 10.50 K/uL Red Blood Count 4.10 M/uL Hemoglobin 13.0 g/dL Hematocrit 37.2 % Mean Corpuscular Volume 90.7 fL Mean Corpuscular Hemoglobin 31.7 pg Mean Corpuscular Hemoglobin Concent 34.9 g/dl Platelet Count 213 K/uL Mean Platelet Volume 9.2 fL Neutrophils (%) (Auto) 62.5 % Lymphocytes (%) (Auto) 22.8 % Monocytes (%) (Auto) 11.5 % Eosinophils (%) (Auto) 2.2 % Basophils (%) (Auto) 0.5 % Neutrophils # (Auto) 6.57 K/uL Lymphocytes # (Auto) 2.39 K/uL Monocytes # (Auto) 1.21 K/uL Eosinophils # (Auto) 0.23 K/uL Basophils # (Auto) 0.05 K/uL RDW Standard Deviation 41.4 fL RDW Coefficient of Variation 12.3 % Immature Granulocyte % (Auto) 0.5 % Immature Granulocyte # (Auto) 0.05 K/uL Prothrombin Time 10.7 SECONDS Prothromb Time International Ratio 1.0 Activated Partial Thromboplast Time 27.6 SECONDS Partial Thromboplastin Ratio 1.1 Sodium Level 144 mmol/L Chloride Level 112 mmol/L Carbon Dioxide Level 24 mmol/L Anion Gap 8.0 mmol/L Blood Urea Nitrogen 3 mg/dl Creatinine 0.81 mg/dl Est Creatinine Clear Calc Drug Dose 114.9 ml/min Estimated GFR () 119.3 Estimated GFR (Non- 102.9 BUN/Creatinine Ratio 3.7 Random Glucose 129 mg/dl Calcium Level 9.0 mg/dl Phosphorus Level 2.1 mg/dl Magnesium Level 1.8 mg/dl Total Bilirubin 0.9 mg/dl Direct Bilirubin < 0.1 mg/dl Aspartate Amino Transf (AST/SGOT) 12 U/L Alanine Aminotransferase (ALT/SGPT) 14 U/L Alkaline Phosphatase 78 U/L Total Protein 6.2 gm/dl Albumin 3.1 gm/dl Test 10/23/16 11:06 Bedside Glucose 282 mg/dl Assessment and Plan 50-year-old male with status epilepticus with a history of seizure disorder requiring intubation and ventilation, now seeming to improve likely seizure for result of medical noncompliance attempts at extubation 10/22 Acute respiratory failure has resolved is extubated and on NC Status epilepticus has resolved neurology is following and will continue Keppra with Neurontin and lamictal Cardiovascular and cerebrovascular disease, Coreg lisinopril and aspirin Concerns for possible aspiration pneumonia Zosyn continues Elevated troponin likely due to stress initial event His anti depressive medications prozac and lamictal Lovenox as DVT prevention
[2016-10-23] MEDS ORDERED: POTASSIUM CHLORIDE 10 MEQ TABCR PO ONE (14:00)
[2016-10-23] MEDS ORDERED: POTASSIUM PHOS 3 MMOL/1 ML INFUSION IV STA (14:02)
[2016-10-23] MEDS ORDERED: POTASSIUM PHOSPHATE INJ 9 MMOL in SODIUM CHLORIDE 0.9% 250ML 250 ML IV SCH (14:30)
--- NOTE | 2016-10-23 14:45 | Critical Care Progress Note ---
Critical Care Progress Note Date of Service Oct 23, 2016. Attending Dr. Hargrove Subjective He was extubated yesterday and it seems he has comprehensive type of aphasia. He understands things better when written. 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 Order placed in the chart. He is hypokalemc and hypophosphatemic and we are repleting both Objective General Appearance: no apparent distress, other (patient appears disheveled and had endotracheal tube in place) Head: normocephalic Neck: trachea midline, no stridor, supple, Respiratory: patient with rhonchi bilaterally and without any wheezes or crackles Cardiovasular: regular rate/rhythm, no murmur, no rub, normal peripheral pulses , unable to assess JVD due to cedeño in the way Abdomen: non tender, normal bowel sounds, no rebound, no masses Upper Extremities: both upper extremities in restraints Lower Extremities: no peripheral edema noted Pulses: radial (R) (2+), radial (L) (2+), dorsalis pedis (R) (2+), dorsalis pedis (L) (2+) Neuro: other (unable to do official neuro exam as patient sedated and intubated Reflexes: patellar (R) (2+), patellar (L) (2+) Current SOFA Score SOFA Score Response (Comments) Value Platelets (x10) > 150 0 Bilirubin (mg/dL) < 1.2 0 Pierre Coma Score 15 ((unable to assess officially as patient sedated)) 0 Level of Hypotension No Hypotension 0 Creatinine (mg/dL) < 1.2 0 Total 0 Previous SOFA Scores 0 Assessment & Plan 50-year-old male with a past medical history of seizure disorder, stroke, hypertension, diabetes presented to the ER via EMS after status epilepticus. He was intubated in the ED and is receiving Keppra IV for seizures. Patient has been non compliant with medications which is the likely reason for his seizure. He was extubated successfully yesterday and is going to medical up NEURO MRI brain negative for stroke urine tox only positive for marijuana Patient with seizure disorder and currently receiving keppra IV bid Ativan at the bedside PRN for anxiety Patient likely had seizure due to non-compliance with medications Patient with history of stroke with residual right sided weakness, aspirin and lipitor restarted ID Patient with WCC of 24.92 in the ED,3 day emperic antibiotics given. Cultures are negative we stopped vancomycin today On Pip-Tazo with blood cultures pending Will continue to monitor vitals and WCC for ongoing infection will trend lactic acid CARDIAC Patient with history of hypertension Takes Carvedilol and Lisinopril at home, currently held Currently receiving metoprolol q4 and hydralazine for systolic BP>160 Troponin peaked 0.13 and trended down likely due to sepsis He may be resumed on his home meds when on the up. RENAL FU and replete lytes; K and P today UO adequate Cr within normal PSYCH Nonncompliance with medications, due to worsening depression? will likely need psych referral when more clinically stable ENDO T2DM Patient started on Insulin SS Does not appear to be on medication on home med list HbA1c 5.7 earlier this year in April GI Patient currently NPO will feed once extyubated hopefully today Famotidine for GI prophylaxis LFT's wnl DVT Prophylaxis Lovenox SubQ made level 4 code status based on is wishes He is stable to be managed on med surg up Consults & Procedures Consultants: Neurology Procedures: Intubation EEG MRI Data Medications: Current Inpatient Medications Medications (Trade) Dose Ordered Sig/Jerson Route Start Time Stop Time Status Last Admin Dose Admin Lorazepam (Ativan Inj) 1 mg Q2H PRN IV 10/20/16 06:00 11/19/16 05:59 10/21/16 05:38 1 MG Ondansetron HCl (Zofran Inj) 4 mg Q6H PRN IV 10/20/16 06:00 11/19/16 05:59 Glucose (Glucose 40% Gel) UD PRN PO 10/20/16 06:00 11/19/16 05:59 Glucose (Glucose Chew Tab) 1 tabs UD PRN PO 10/20/16 06:00 11/19/16 05:59 Dextrose (Dextrose 50% 50ML Syringe) 50 ml UD PRN IV 10/20/16 06:00 11/19/16 05:59 Glucagon (Glucagon Inj) 1 mg UD PRN SQ 10/20/16 06:00 11/19/16 05:59 Piperacillin Sod/ Tazobactam Sod 4.5 gm/Dextrose 120 ml @ 30 mls/hr Q8H IV 10/20/16 12:00 10/27/16 11:59 10/23/16 11:26 30 MLS/HR Hydralazine HCl (HydrALAZINE INJ) 10 mg Q4H PRN IV. 10/20/16 06:30 11/19/16 06:29 10/23/16 06:03 10 MG Piperacillin Sod/ Tazobactam Sod (Consult) 1 ea UD PRN N/A 10/20/16 08:30 11/19/16 08:29 Atorvastatin Calcium (Lipitor Tab) 80 mg QAM PO 10/21/16 09:00 11/20/16 08:59 10/23/16 08:56 80 MG Enoxaparin Sodium (Lovenox Inj) 40 mg QAM SQ 10/21/16 09:00 11/20/16 08:59 10/23/16 08:57 40 MG Insulin Aspart (novoLOG ASPART) SLIDING SCALE If C... Q6 SC 10/20/16 18:00 11/19/16 17:59 10/23/16 11:32 6 UNITS Aspirin (Aspirin Chew) 324 mg QAM PO 10/22/16 09:00 11/21/16 08:59 10/23/16 08:57 324 MG Lisinopril (Zestril Tab) 5 mg DAILY PO 10/22/16 09:00 11/21/16 08:59 10/23/16 08:56 5 MG Quetiapine Fumarate (seroQUEL TAB) 300 mg HS PO 10/21/16 21:00 11/20/16 20:59 10/22/16 20:21 300 MG Lamotrigine (Lamictal Tab) 150 mg BID PO 10/22/16 21:00 11/21/16 20:59 10/23/16 08:55 150 MG Carvedilol (Coreg Tab) 12.5 mg BID PO 10/22/16 12:00 11/21/16 11:59 10/23/16 08:57 12.5 MG Acetaminophen (Tylenol Tab) 650 mg Q6H PRN PO 10/22/16 20:30 11/21/16 20:29 10/23/16 09:44 650 MG Potassium Chloride (Klor-Con M10) 20 meq BIDM PO 10/23/16 08:30 11/22/16 08:29 10/23/16 08:51 20 MEQ Levetiracetam (Keppra Tab) 500 mg BID PO 10/23/16 09:00 11/22/16 08:59 10/23/16 08:51 500 MG Gabapentin (Neurontin Tab) 800 mg TID PO 10/23/16 09:00 11/22/16 08:59 10/23/16 08:51 800 MG Fluoxetine HCl (Prozac Cap) 80 mg DAILY PO 10/23/16 09:00 11/22/16 08:59 10/23/16 08:51 80 MG Vital Signs: Date Time Temp Pulse Resp B/P (MAP) Pulse Ox O2 Delivery O2 Flow Rate FiO2 10/23/16 12:01 106 16 131/94 (106) 93 Room Air 10/23/16 12:00 Room Air 10/23/16 09:37 36.6 126 23 152/91 (111) 94 Room Air 10/23/16 08:00 Room Air 10/23/16 07:00 111 16 170/102 (124) 92 Room Air 10/23/16 06:00 95 17 184/101 (128) 93 Room Air 10/23/16 05:00 96 18 163/97 (119) 91 10/23/16 04:00 Room Air 10/23/16 04:00 37.2 101 18 158/99 (118) 92 Room Air 10/23/16 02:00 95 18 130/86 (101) 10/23/16 01:00 84 19 167/98 (121) 93 10/23/16 00:07 37.2 93 18 159/98 (118) 97 10/22/16 23:59 Room Air 10/22/16 22:00 88 18 162/108 (126) 10/22/16 21:22 96 24 175/116 (135) 90 10/22/16 20:51 37.2 90 22 181/110 (133) 96 10/22/16 20:00 Room Air 10/22/16 18:00 83 20 163/94 (117) 94 Room Air 10/22/16 16:00 Room Air 10/22/16 16:00 37.0 80 21 148/91 (110) 95 Room Air Laboratory Results: Last 24 Hours Test 10/22/16 17:36 10/22/16 17:49 10/23/16 00:05 10/23/16 06:14 Bedside Glucose 84 mg/dl 141 mg/dl Potassium Level 4.5 mmol/L 3.2 mmol/L Chemistry Specimen Hemolysis White Blood Count 10.50 K/uL Red Blood Count 4.10 M/uL Hemoglobin 13.0 g/dL Hematocrit 37.2 % Mean Corpuscular Volume 90.7 fL Mean Corpuscular Hemoglobin 31.7 pg Mean Corpuscular Hemoglobin Concent 34.9 g/dl Platelet Count 213 K/uL Mean Platelet Volume 9.2 fL Neutrophils (%) (Auto) 62.5 % Lymphocytes (%) (Auto) 22.8 % Monocytes (%) (Auto) 11.5 % Eosinophils (%) (Auto) 2.2 % Basophils (%) (Auto) 0.5 % Neutrophils # (Auto) 6.57 K/uL Lymphocytes # (Auto) 2.39 K/uL Monocytes # (Auto) 1.21 K/uL Eosinophils # (Auto) 0.23 K/uL Basophils # (Auto) 0.05 K/uL RDW Standard Deviation 41.4 fL RDW Coefficient of Variation 12.3 % Immature Granulocyte % (Auto) 0.5 % Immature Granulocyte # (Auto) 0.05 K/uL Prothrombin Time 10.7 SECONDS Prothromb Time International Ratio 1.0 Activated Partial Thromboplast Time 27.6 SECONDS Partial Thromboplastin Ratio 1.1 Sodium Level 144 mmol/L Chloride Level 112 mmol/L Carbon Dioxide Level 24 mmol/L Anion Gap 8.0 mmol/L Blood Urea Nitrogen 3 mg/dl Creatinine 0.81 mg/dl Est Creatinine Clear Calc Drug Dose 114.9 ml/min Estimated GFR () 119.3 Estimated GFR (Non- 102.9 BUN/Creatinine Ratio 3.7 Random Glucose 129 mg/dl Calcium Level 9.0 mg/dl Phosphorus Level 2.1 mg/dl Magnesium Level 1.8 mg/dl Total Bilirubin 0.9 mg/dl Direct Bilirubin < 0.1 mg/dl Aspartate Amino Transf (AST/SGOT) 12 U/L Alanine Aminotransferase (ALT/SGPT) 14 U/L Alkaline Phosphatase 78 U/L Total Protein 6.2 gm/dl Albumin 3.1 gm/dl Test 10/23/16 11:06 Bedside Glucose 282 mg/dl
[2016-10-23] MEDS: QUETIAPINE FUMARATE 300 MG TAB PO SCH (22:08)
[2016-10-24] MEDS: PIPERACILL/TAZOBAC IV 4.5 GM in DEXTROSE 5% 100ML 100 ML IV SCH ×2 (04:19→12:00)
[2016-10-24 04:23] VITALS: BP 166/99; PULSE 60
[2016-10-24] MEDS: HydrALAZINE HCL 20 MG/ML VIAL IV. PRN (04:28)
[2016-10-24] MEDS: ACETAMINOPHEN 325 MG TAB PO PRN (06:35)
[2016-10-24 07:27] VITALS: BP 144/89; PULSE 100; TEMP 36.6; O2SAT 96
[2016-10-24 07:35] LABS: BASO % 0.4 %; BASO ABS # 0.03 K/uL (0-0.2); COMPLETE YES; EOS % 3.2 %; IG% 0.2 %; LYMPH % 30.5 %; LYMPH ABS # 2.44 K/uL (1.2-3.4); MEAN CELL VOLUME 90.9 fL (80-100); MEAN CORPUSCULAR HEMOGLOBIN 31.7 pg (25-34); MEAN CORPUSCULAR HGB CONC 34.9 g/dl (32-36); MEAN PLATELET VOLUME 9.2 fL (7.4-10.4); MONO % 13.4 %; NEUT % 52.3 %; PLATELET COUNT 218 K/uL (130-400); RED BLOOD COUNT 3.85 M/uL (4.7-6.1); WHITE BLOOD COUNT 8.01 K/uL (4.8-10.8)
[2016-10-24 07:55] LABS: PROTHROMBIN TIME (PATIENT) 10.6 SECONDS (9.0-12.0)
[2016-10-24 08:12] LABS: BUN/CREATININE RATIO 7.6 (10-20); CALCIUM 9.2 mg/dl (8.5-10.1); CREATININE 0.87 mg/dl (0.60-1.40); MAGNESIUM 1.6 mg/dl (1.8-2.4); POTASSIUM 3.1 mmol/L (3.5-5.1)
[2016-10-24] MEDS: CARVEDILOL 12.5 MG TAB PO SCH (08:14)
[2016-10-24] MEDS: LEVETIRACETAM 500 MG TAB PO SCH (08:14)
[2016-10-24 08:15] LABS: PHOSPHORUS 2.4 mg/dl (2.5-4.9)
[2016-10-24] MEDS: ATORVASTATIN 40 MG TAB PO SCH (08:16)
[2016-10-24] MEDS: FLUOXETINE HCL 20 MG CAP PO SCH (08:16)
[2016-10-24] MEDS: POTASSIUM CHLORIDE 10 MEQ TABCR PO SCH (08:16)
[2016-10-24] MEDS: LISINOPRIL 5 MG TAB PO SCH (08:17)
[2016-10-24] MEDS: GABAPENTIN 800 MG TAB PO SCH (08:17)
[2016-10-24] MEDS: ENOXAPARIN 40 MG/0.4 ML SYR SQ SCH (08:18)
[2016-10-24] MEDS: ASPIRIN 81 MG CHEW PO SCH (08:19)
--- NOTE | 2016-10-24 08:44 | Neurology Progress Notes ---
Neurology Progress Note Date of Service Oct 24, 2016. Subjective The patient has not had any seizures in the last 2-3 days. He has been alert according to nursing staff. He has some posterior neck and shoulder pain on the tight nature. The patient is quite angry this morning after his breakfast tray arrived because he is not getting the diet that he wants. He is upset that he is not getting salt and some of the food he doesn't like. On October 20, EEG showed left frontotemporal slowing as before. There was no active seizure activity. MRI of the brain on October 20 showed old extensive left middle cerebral artery infarct with no acute infarct or new changes from his previous study. This morning, CBC showed a mild anemia but was otherwise stable. Chem profile was largely unremarkable although magnesium was low at 1.6. Objective Date Time Temp Pulse Resp B/P (MAP) Pulse Ox O2 Delivery O2 Flow Rate FiO2 10/24/16 07:27 36.6 100 18 144/89 (107) 96 Room Air 10/24/16 04:23 60 166/99 (121) 10/24/16 00:00 Room Air 10/23/16 23:53 36.8 78 18 171/98 (122) 99 Room Air 10/23/16 20:00 83 172/98 (122) 10/23/16 20:00 Room Air 10/23/16 19:02 36.6 91 19 144/88 (106) 98 Room Air 10/23/16 16:00 Room Air 10/23/16 14:58 36.7 97 18 120/75 (90) 96 Room Air 10/23/16 13:00 99 18 10/23/16 12:01 106 16 131/94 (106) 93 Room Air 10/23/16 12:00 Room Air 10/23/16 09:37 36.6 126 23 152/91 (111) 94 Room Air Last 24 Hours Test 10/23/16 11:06 10/23/16 16:25 10/23/16 20:41 10/24/16 07:01 Bedside Glucose 282 mg/dl 99 mg/dl 118 mg/dl White Blood Count 8.01 K/uL Red Blood Count 3.85 M/uL Hemoglobin 12.2 g/dL Hematocrit 35.0 % Mean Corpuscular Volume 90.9 fL Mean Corpuscular Hemoglobin 31.7 pg Mean Corpuscular Hemoglobin Concent 34.9 g/dl Platelet Count 218 K/uL Mean Platelet Volume 9.2 fL Neutrophils (%) (Auto) 52.3 % Lymphocytes (%) (Auto) 30.5 % Monocytes (%) (Auto) 13.4 % Eosinophils (%) (Auto) 3.2 % Basophils (%) (Auto) 0.4 % Neutrophils # (Auto) 4.19 K/uL Lymphocytes # (Auto) 2.44 K/uL Monocytes # (Auto) 1.07 K/uL Eosinophils # (Auto) 0.26 K/uL Basophils # (Auto) 0.03 K/uL RDW Standard Deviation 41.0 fL RDW Coefficient of Variation 12.4 % Immature Granulocyte % (Auto) 0.2 % Immature Granulocyte # (Auto) 0.02 K/uL Prothrombin Time 10.6 SECONDS Prothromb Time International Ratio 1.0 Activated Partial Thromboplast Time 27.1 SECONDS Partial Thromboplastin Ratio 1.0 Sodium Level 143 mmol/L Potassium Level 3.1 mmol/L Chloride Level 111 mmol/L Carbon Dioxide Level 25 mmol/L Anion Gap 7.0 mmol/L Blood Urea Nitrogen 7 mg/dl Creatinine 0.87 mg/dl Est Creatinine Clear Calc Drug Dose 107.0 ml/min Estimated GFR () 115.8 Estimated GFR (Non- 99.9 BUN/Creatinine Ratio 7.6 Random Glucose 110 mg/dl Calcium Level 9.2 mg/dl Phosphorus Level 2.4 mg/dl Magnesium Level 1.6 mg/dl Total Bilirubin 0.8 mg/dl Aspartate Amino Transf (AST/SGOT) 22 U/L Alanine Aminotransferase (ALT/SGPT) 13 U/L Alkaline Phosphatase 71 U/L Total Protein 6.4 gm/dl Albumin 3.4 gm/dl Test 10/24/16 07:34 Bedside Glucose 109 mg/dl Exam: He is awake and alert. He has an expressive aphasia and seems to comprehend fairly well. He follows one-step commands well. He is eating well without choking Extraocular eye muscles are intact without nystagmus. He has a chronic right spastic hemiparesis as before. He moves his left side well. He struggles but can manage to get from a lying to a sitting position by swinging his legs around. No abnormal involuntary movements were noted. Current Inpatient Medications Medications (Trade) Dose Ordered Sig/Jerson Route Start Time Stop Time Status Last Admin Dose Admin Lorazepam (Ativan Inj) 1 mg Q2H PRN IV 10/20/16 06:00 11/19/16 05:59 10/21/16 05:38 1 MG Ondansetron HCl (Zofran Inj) 4 mg Q6H PRN IV 10/20/16 06:00 11/19/16 05:59 Glucose (Glucose 40% Gel) UD PRN PO 10/20/16 06:00 11/19/16 05:59 Glucose (Glucose Chew Tab) 1 tabs UD PRN PO 10/20/16 06:00 11/19/16 05:59 Dextrose (Dextrose 50% 50ML Syringe) 50 ml UD PRN IV 10/20/16 06:00 11/19/16 05:59 Glucagon (Glucagon Inj) 1 mg UD PRN SQ 10/20/16 06:00 11/19/16 05:59 Piperacillin Sod/ Tazobactam Sod 4.5 gm/Dextrose 120 ml @ 30 mls/hr Q8H IV 10/20/16 12:00 10/27/16 11:59 10/24/16 04:19 30 MLS/HR Hydralazine HCl (HydrALAZINE INJ) 10 mg Q4H PRN IV. 10/20/16 06:30 11/19/16 06:29 10/24/16 04:28 10 MG Piperacillin Sod/ Tazobactam Sod (Consult) 1 ea UD PRN N/A 10/20/16 08:30 11/19/16 08:29 Atorvastatin Calcium (Lipitor Tab) 80 mg QAM PO 10/21/16 09:00 11/20/16 08:59 10/24/16 08:16 80 MG Enoxaparin Sodium (Lovenox Inj) 40 mg QAM SQ 10/21/16 09:00 11/20/16 08:59 10/24/16 08:18 40 MG Aspirin (Aspirin Chew) 324 mg QAM PO 10/22/16 09:00 11/21/16 08:59 10/24/16 08:19 324 MG Lisinopril (Zestril Tab) 5 mg DAILY PO 10/22/16 09:00 11/21/16 08:59 10/24/16 08:17 5 MG Quetiapine Fumarate (seroQUEL TAB) 300 mg HS PO 10/21/16 21:00 11/20/16 20:59 10/23/16 22:08 300 MG Lamotrigine (Lamictal Tab) 150 mg BID PO 10/22/16 21:00 11/21/16 20:59 10/24/16 08:15 150 MG Carvedilol (Coreg Tab) 12.5 mg BID PO 10/22/16 12:00 11/21/16 11:59 10/24/16 08:14 12.5 MG Acetaminophen (Tylenol Tab) 650 mg Q6H PRN PO 10/22/16 20:30 11/21/16 20:29 10/24/16 06:35 650 MG Potassium Chloride (Klor-Con M10) 20 meq BIDM PO 10/23/16 08:30 11/22/16 08:29 10/24/16 08:16 20 MEQ Levetiracetam (Keppra Tab) 500 mg BID PO 10/23/16 09:00 11/22/16 08:59 10/24/16 08:14 500 MG Gabapentin (Neurontin Tab) 800 mg TID PO 10/23/16 09:00 11/22/16 08:59 10/24/16 08:17 800 MG Fluoxetine HCl (Prozac Cap) 80 mg DAILY PO 10/23/16 09:00 11/22/16 08:59 10/24/16 08:16 80 MG Insulin Aspart (novoLOG ASPART) SLIDING SCALE If C... ACHS SC 10/23/16 16:30 11/22/16 16:29 Impression 1. Old, large left middle cerebral artery infarct 2009 resulting right spastic hemiparesis and expressive aphasia. This is stable 2. Seizure disorder secondary to previous stroke He usually does fairly well when he takes his medicine, but frequently as noncompliant as he was recently. This allows for breakthrough seizures. Currently, he has been stable on Keppra and Lamictal. He also takes gabapentin but this is for chronic pain. In the past he was on Depakote which controlled seizures but elevated his ammonia. In addition, he was on Dilantin in the past but this was discontinued due to side effects also. 3. History of severe depression and suicide attempt. He is fairly stable on Seroquel and fluoxetine. Although he has some anger issues this morning this is more secondary to frustration from not getting salt added to his food. He is on a no added salt diet and is used to sprinkling some salt. He also is not happy with some of the food items on his tray. 4. Posterior neck and shoulder pain. This is musculoskeletal in origin. 5. Decreased magnesium (1.6) noted on chem profile this morning. Theoretically, this could lower his seizure threshold, making it easier for him to have seizures. 6. History of cardiomyopathy, hypertension, diabetes Glucose, only mildly elevated, is improved from admission. Blood pressure is somewhat improved from admission but still is mildly elevated. Plan 1. Encourage and emphasized the importance of compliance of taking his seizure medication Keep Lamictal at 150 mg by mouth twice a day Keep the Keppra at 500 mg by mouth twice a day 2. Continue with aspirin for cardiovascular/cerebrovascular prophylaxis From a neurologic standpoint he does not need to be on any more than 81 mg aspirin tablet daily. Higher doses of aspirin do not prevent strokes any better but due to increased bleeding risk according to the neurologic literature. Perhaps he is on 324 mg of aspirin because of cardiac issues. 3. Replace magnesium 4. Control blood pressure and glucose as you're doing. 5. Continue Seroquel and fluoxetine. Admittedly, the fluoxetine dose is rather high at 80 mg a day. I believe he is followed by psychiatry as an outpatient, however I no further recommendations to make from a neurologic standpoint. Please contact me if I can be of further assistance on this case. I've spoken with Dr. Shine regarding this case This patient normally follows up with Dr. Crouch as an outpatient. He should also follow-up with psychiatry.
[2016-10-24] MEDS: INSULIN ASPART 100 UNITS/ML 3 ML PEN SC SCH ×2 (09:14→11:00)
[2016-10-24] MEDS ORDERED: LEVE500T13 PO (11:30)
[2016-10-24] MEDS ORDERED: LMC100 PO (11:30)
[2016-10-24] MEDS ORDERED: LEVO-18 PO (11:30)
--- NOTE | 2016-10-24 11:32 | Discharge Instructions ---
Discharge Instructions Date of Service Oct 24, 2016. Admission Reason for Admission: Obtunded,Epilepticus,Generalized Convulsive Discharge Discharge Diagnosis / Problem: Seizures, possible aspiration pneumonia Discharge Goals Goal(s): Decrease discomfort, Improve function, Increase independence Activity Recommendations Activity Limitations: resume your previous activity . Instructions / Follow-Up Instructions / Follow-Up Dr. Fan in [address] Pratt in 1 week Current Hospital Diet Patient's current hospital diet: AHA Diet (Heart Healthy), Diabetes Type 2 Diet Discharge Diet Recommended Diet: Regular Diet Pending Studies Studies pending at discharge: no Laboratory Results Hemoglobin A1c Test 10/20/16 09:35 Range/Units Estimated Average Glucose 97 mg/dl Hemoglobin A1c 5.0 4.5-5.6 % Medical Emergencies . Who to Call and When: Medical Emergencies: If at any time you feel your situation is an emergency, please call 911 immediately. . Non-Emergent Contact Non-Emergency issues call your: Primary Care Provider, Neurologist . . "Provider Documentation" section prepared by Helen Shine. . VTE Core Measure Inpt VTE Proph given/why not?: SCD's
--- NOTE | 2016-10-24 11:34 | Discharge Summary ---
Discharge Summary Date of Service Oct 24, 2016. Discharge Summary Admission Date: Oct 20, 2016 at 06:05 Discharge Date: Oct 24, 2016 Discharge Disposition: Home Principal Diagnosis: Seizures Problems/Secondary Diagnoses: Hx of seizure disorder, noncompliant with meds Depression DM Hx of CVA with chronic hemiparalysis and aphasia Liver disease Immunizations: Have You Had Influenza Vaccine: Yes Influenza Vaccine Date: Dec 21, 2012 History of Tetanus Vaccine?: Unknown Tetanus Immunization Date: Aug 13, 2012 History of Pneumococcal: No History of Hepatitis B Vaccine: Unknown Consultations: Dr. Fan Medication Reconciliation New Medications: Levofloxacin (Levaquin) 750 Mg Tab 1 TAB PO DAILY for 10 Days, #10 TAB Lamotrigine (Lamotrigine) 100 Mg Tab 150 MG PO BID for 30 Days, TAB Levetiracetam (Keppra) 500 Mg Tab 500 MG PO BID for 30 Days, TAB Continued Medications: Aspirin (Aspirin Ec) 325 Mg Tab 325 MG PO QAM Atorvastatin (Lipitor) 80 Mg Tab 80 MG PO QPM Carvedilol (Coreg) 12.5 Mg Tab 12.5 MG PO BID Cholecalciferol (Vitamin D3) 2,000 Unit Cap 2000 UNITS PO DAILY Diazepam (Anticonvulsant) (Diastat Acudial) 1 Homepack Ea 1 DOSE WA PRN/SEIZURE Fluoxetine Hcl (Prozac) 40 Mg Cap 80 MG PO QAM Gabapentin (Neurontin) 800 Mg Tab 800 MG PO TID, TAB Lisinopril (Zestril) 5 Mg Tab 5 MG PO DAILY Methocarbamol (Robaxin) 500 Mg Tab 500 MG PO TID PRN for MUSCLE SPASMS Omeprazole (Prilosec) 40 Mg Cap 40 MG PO DAILY, CAP Promethazine Hcl (Phenergan) 25 Mg Tab 25 MG PO TID PRN for Nausea, TAB Quetiapine Fumarate (Seroquel) 300 Mg Tab 300 MG PO HS, TAB Thiamine Hcl (Vitamin B-1) 100 Mg Tab 100 MG PO QAM Discontinued Medications: Lamotrigine (Lamictal) 200 Mg Tab 250 MG PO BID Discharge Exam Pt feels he is doing well. He had pain related to his neck and L shoulder that is typical for him. Pt denies fever, SOB, chest pain, abd pain, n/v/c/d, LE pain or swelling. Pertinent positives and negatives reviewed in HPI--all others negative Physical Exam: General Appearance: WD/WN, no apparent distress Eyes: normal inspection, EOMI ENT: hearing grossly normal Respiratory/Chest: normal breath sounds, no respiratory distress Cardiovascular: regular rate, rhythm, no edema Abdomen / GI: non tender, soft Extremities: no calf tenderness, no pedal edema Neurologic/Psychiatric: alert, oriented x 3 Skin: normal color, warm/dry Hospital Course 50-year-old male with status epilepticus with a history of seizure disorder requiring intubation and ventilation Seizure is likely the result of medical noncompliance Medications adjusted as per Dr. Fan's recommendations CT head neg for acute issues Acute respiratory failure related to seizure, resolved and no longer requiring O2 Cardiovascular and cerebrovascular disease, Coreg lisinopril and aspirin Concerns for possible aspiration pneumonia Has been on zosyn since admission, will finish course of levaquin as outpt Elevated troponin likely due to stress initial event ECHO with EF 25-30% and areas of akinesis Depression: continue meds as above CVA: chronic deficits, stable Has help at home Total Time Spent: Greater than 30 minutes This includes examination of the patient, discharge planning, medication reconciliation, and communication with other providers. Discharge Instructions Please refer to the electronic Patient Visit Report (Discharge Instructions) for additional information. Follow-Up Dr. Fan in [address] Pratt in 1 week Additional Copies To Jimmy Pratt D.O.Int.Med.
[2016-10-24 11:40] VITALS: BP 144/89; PULSE 100; TEMP 36.6; O2SAT 96
== END 2016-10-24 13:59 | disposition home or self-care (01) | DRG 100 ==
LOC: EDBD 03:57 → C.EDB 03:57 → C.MSICU 06:05 → ENRESERV 06:40 → C.MSICU 11:36 → ENRESERV 10-23 13:02 → C.MS4W 10-23 14:54
PROVIDERS: ADMIT Hospitalist; ATTEND Family Medicine
PROC: 5A1945Z Respiratory Ventilation, 24-96 Consecutive Hours (ICD-10-PCS; principal; 2016-10-20)
PROC: 0BH17EZ Insertion of Endotracheal Airway into Trachea, Via Natural or Artificial Opening (ICD-10-PCS; principal; 2016-10-20)
DX: G40.401 Other generalized epilepsy and epileptic syndromes, not intractable, with status epilepticus (principal); J96.00 Acute respiratory failure, unspecified whether with hypoxia or hypercapnia; J69.0 Pneumonitis due to inhalation of food and vomit; I24.8 Other forms of acute ischemic heart disease; I69.351 Hemiplegia and hemiparesis following cerebral infarction affecting right dominant side; E83.39 Other disorders of phosphorus metabolism; E87.6 Hypokalemia; R00.0 Tachycardia, unspecified; R45.1 Restlessness and agitation; I69.320 Aphasia following cerebral infarction; I69.398 Other sequelae of cerebral infarction; G93.89 Other specified disorders of brain; I10 Essential (primary) hypertension; E11.9 Type 2 diabetes mellitus without complications; K76.9 Liver disease, unspecified; I25.10 Atherosclerotic heart disease of native coronary artery without angina pectoris; I67.9 Cerebrovascular disease, unspecified; F32.9 Major depressive disorder, single episode, unspecified; F12.90 Cannabis use, unspecified, uncomplicated; F17.210 Nicotine dependence, cigarettes, uncomplicated; Z66 Do not resuscitate; Z72.820 Sleep deprivation; Z91.14 Patient's other noncompliance with medication regimen; Z79.899 Other long term (current) drug therapy; Z79.82 Long term (current) use of aspirin; Z99.3 Dependence on wheelchair

== ENCOUNTER → 2016-11-10 | Outpatient (CLI) | payer OTHER ==
[~2016-11-10] MED LIST changes: -BUSP-8 PO; +CARV12.5 PO; -CARV12.52 PO; -CEFD300C2 PO; -CHOL100010 PO; +CHOL2000 PO; -LAMO200T PO; +LEVE500T13 PO; +LISI-729 PO; -LISI5TAB PO; +LMC100 PO; -OXY/15 PO; +[UNRECOGNIZED DRUG - CODE] PR; -[UNRECOGNIZED DRUG - CODE] RE
[2016-11-10 17:26] LABS: BASO % 0.9 %; BASO ABS # 0.06 K/uL (0-0.2); COMPLETE YES; EOS % 1.5 %; HEMATOCRIT 39.8 % (42-52); IG% 0.3 %; LYMPH % 42.3 %; LYMPH ABS # 2.85 K/uL (1.2-3.4); MEAN CELL VOLUME 90.2 fL (80-100); MEAN CORPUSCULAR HEMOGLOBIN 31.3 pg (25-34); MEAN CORPUSCULAR HGB CONC 34.7 g/dl (32-36); MEAN PLATELET VOLUME 9.7 fL (7.4-10.4); MONO % 12.2 %; NEUT % 42.8 %; PLATELET COUNT 311 K/uL (130-400); RED BLOOD COUNT 4.41 M/uL (4.7-6.1); WHITE BLOOD COUNT 6.73 K/uL (4.8-10.8)
[2016-11-10 17:32] LABS: ALT/SGPT 15 U/L (12-78); BLOOD UREA NITROGEN 5 mg/dl (7-18); BUN/CREATININE RATIO 5.4 (10-20); CALCIUM 9.3 mg/dl (8.5-10.1); CARBON DIOXIDE 27 mmol/L (21-32); CHLORIDE 107 mmol/L (98-107); CREATININE 0.99 mg/dl (0.60-1.40); GLUCOSE 76 mg/dl (70-99); POTASSIUM 3.7 mmol/L (3.5-5.1); SODIUM 140 mmol/L (136-145)
[2016-11-10 17:35] LABS: ALB/GLOB RATIO 1.6 (0.9-2); ALKALINE PHOSPHATASE 112 U/L (45-117); AST/SGOT 15 U/L (15-37)
== END | disposition home or self-care (01) ==
LOC: C.LABBC 14:02
PROVIDERS: ATTEND Psychiatry & Neurology Neurology
DX: G40.909 Epilepsy, unspecified, not intractable, without status epilepticus (principal)

== ENCOUNTER 2017-02-10 09:15 | Emergency (ER) | payer OTHER ==
[~2017-02-10] VITALS: Ht 180.3 cm; Wt 78.0 kg
[~2017-02-10 09:15] MED LIST changes: +METH-445 PO; -METH500T37 PO; +THIA100T10 PO; -THIA100T11 PO
[2017-02-10 09:26] VITALS: O2SAT 95
--- NOTE | 2017-02-10 09:26 | EMERGENCY ROOM VISIT NOTE ---
History Report prepared by Epifanio: Deepali Argueta Under the Supervision of: Natividad MurryO. First contact with patient: 09:16 Chief Complaint: SEIZURE Stated Complaint: SEIZURE History of Present Illness The patient is a 51 year old male who presents to the Emergency Room with complaints of a resolved seizure episode that occurred earlier today. The patient has a history of CVA and seizures, noting his last seizure was in October. The patient states that he has a headache and right sided weakness. He notes he smokes and drinks alcohol. HPI limited due to patient having a history of aphasia. Source of History: patient History Limited By: aphasia Onset: today Position: other (global) Quality: other (seizure) Timing: resolved Review of Systems See HPI for pertinent positives & negatives. A total of 10 systems reviewed and were otherwise negative. Past Medical & Surgical Medical Problems: (1) Acute renal failure (2) Acute renal failure syndrome (3) Anticoagulant therapy (4) Aphasia (5) Cardiomyopathy (6) CVA (cerebral vascular accident) (7) Depression (8) Diabetes mellitus (9) Elevated serum troponin (10) Hemiparesis (11) Ischemic stroke (12) liver disease (13) LV mural thrombus (14) Seizure Family History Patient reports no known family medical history. Social History Smoking Status: Current Every Day Smoker Alcohol Use: occasionally Drug Use: marijuana Marital Status: single Housing Status: lives with significant other Occupation Status: unemployed, disabled Current/Historical Medications Scheduled Diazepam (Anticonvulsant) (Diastat Acudial), 1 DOSE FL PRN/SEIZURE Lamotrigine (Lamotrigine), 150 MG PO BID Levetiracetam (Keppra), 500 MG PO BID Scheduled PRN Methocarbamol (Robaxin), 500 MG PO TID PRN for MUSCLE SPASMS Allergies Coded Allergies: Codeine (Verified Allergy, Mild, HIVES, 12/08/15) Physical Exam Vital Signs Date Time Temp Pulse Resp B/P (MAP) Pulse Ox O2 Delivery O2 Flow Rate FiO2 02/10/17 13:11 104 02/10/17 13:06 107 23 96 02/10/17 13:00 187/113 02/10/17 12:36 95 20 97 02/10/17 12:06 103 22 95 02/10/17 12:01 178/126 02/10/17 11:45 106 24 95 02/10/17 11:15 103 15 99 02/10/17 11:00 153/96 02/10/17 10:45 101 21 96 02/10/17 10:38 106 18 185/115 97 Room Air 02/10/17 10:37 185/115 02/10/17 10:15 101 20 96 02/10/17 09:45 106 33 96 02/10/17 09:28 36.6 106 17 157/111 95 Room Air 02/10/17 09:26 95 Room Air 02/10/17 09:26 95 Nasal Cannula 02/10/17 09:22 111 02/10/17 09:19 157/111 Physical Exam GENERAL: Patient is awake, alert, and in no acute distress. Patient is resting comfortably and showing no signs of anxiety EYES: The conjunctivae are clear. The pupils are round and reactive. EARS, NOSE, MOUTH AND THROAT: The nose is without any evidence of any deformity. Mucous membranes are moist tongue is midline NECK: The neck is nontender and supple. RESPIRATORY: Normal respiratory effort is noted there is no evidence of wheezing rhonchi or rales CARDIOVASCULAR: Tachycardic rate and regular rhythm noted there no murmurs rubs or gallops normal S1 normal S2 GASTROINTESTINAL: The abdomen is soft. Bowel sounds are present in all quadrants. Abdomen is nontender MUSCULOSKELETAL/EXTREMITIES: There is no evidence of gross deformity full range of motion is noted in the hips and shoulders SKIN: Pedal edema bilaterally. Skin was warm and dry. There is no obvious evidence of any rash. There are no petechiae, pallor or cyanosis noted. NEUROLOGIC: Appears to be at baseline, answers questions appropriately to the best of his ability. Expressive asphasia noted. Right sided weakness with right facial droop that is consistent with history. Medical Decision & Procedures ER Provider Diagnostic Interpretation: Radiology results as stated below per my review and radiologist interpretation: SINGLE VIEW CHEST CLINICAL HISTORY: Seizure. FINDINGS: 2 AP, portable, upright chest radiographs are compared to study dated 10/22/2016. The cardiomediastinal silhouette is top normal for projection. The lungs and pleural spaces are clear. No pneumothorax is seen. The bony thorax is grossly intact. IMPRESSION: No acute cardiopulmonary abnormality. Electronically signed by: Leon Gamino M.D. 02/10/2017 9:49 AM Dictated Date/Time: 02/10/2017 9:48 AM Laboratory Results 02/10/17 09:59 Red Blood Count 4.32, Mean Corpuscular Volume 88.9, Mean Corpuscular Hemoglobin 32.2, Mean Corpuscular Hemoglobin Concent 36.2, Mean Platelet Volume 8.4, Neutrophils (%) (Auto) 73.1, Lymphocytes (%) (Auto) 19.5, Monocytes (%) (Auto) 6.3, Eosinophils (%) (Auto) 0.3, Basophils (%) (Auto) 0.1, Neutrophils # (Auto) 5.59, Lymphocytes # (Auto) 1.49, Monocytes # (Auto) 0.48, Eosinophils # (Auto) 0.02, Basophils # (Auto) 0.01 02/10/17 09:50 Test 02/10/17 09:50 02/10/17 09:59 Prothrombin Time 11.1 SECONDS (9.0-12.0) Prothromb Time International Ratio 1.1 (0.9-1.1) Activated Partial Thromboplast Time 22.8 SECONDS (21.0-31.0) Partial Thromboplastin Ratio 0.9 Anion Gap 8.0 mmol/L (3-11) Est Creatinine Clear Calc Drug Dose 102.2 ml/min Estimated GFR () 113.4 Estimated GFR (Non- 97.9 BUN/Creatinine Ratio 7.5 (10-20) Calcium Level 8.6 mg/dl (8.5-10.1) Phosphorus Level 2.1 mg/dl (2.5-4.9) Magnesium Level 1.9 mg/dl (1.8-2.4) Troponin I < 0.015 ng/ml (0-0.045) Thyroid Stimulating Hormone (TSH) 0.825 uIu/ml (0.300-4.500) White Blood Count 7.64 K/uL (4.8-10.8) Red Blood Count 4.32 M/uL (4.7-6.1) Hemoglobin 13.9 g/dL (14.0-18.0) Hematocrit 38.4 % (42-52) Mean Corpuscular Volume 88.9 fL (80-100) Mean Corpuscular Hemoglobin 32.2 pg (25-34) Mean Corpuscular Hemoglobin Concent 36.2 g/dl (32-36) Platelet Count 235 K/uL (130-400) Mean Platelet Volume 8.4 fL (7.4-10.4) Neutrophils (%) (Auto) 73.1 % Lymphocytes (%) (Auto) 19.5 % Monocytes (%) (Auto) 6.3 % Eosinophils (%) (Auto) 0.3 % Basophils (%) (Auto) 0.1 % Neutrophils # (Auto) 5.59 K/uL (1.4-6.5) Lymphocytes # (Auto) 1.49 K/uL (1.2-3.4) Monocytes # (Auto) 0.48 K/uL (0.11-0.59) Eosinophils # (Auto) 0.02 K/uL (0-0.5) Basophils # (Auto) 0.01 K/uL (0-0.2) RDW Standard Deviation 43.6 fL (36.4-46.3) RDW Coefficient of Variation 15.2 % (11.5-14.5) Immature Granulocyte % (Auto) 0.7 % Immature Granulocyte # (Auto) 0.05 K/uL (0.00-0.02) Laboratory results per my review. Medications Administered Medications (Trade) Dose Ordered Sig/Jerson Route Start Time Stop Time Status Last Admin Dose Admin Acetaminophen (Tylenol Tab) 1,000 mg NOW STAT PO 02/10/17 13:12 02/10/17 13:14 DC 02/10/17 13:12 1,000 MG ECG Indication: other (seizure) Rate (beats per minute): 107 Rhythm: sinus tachycardia Findings: Q waves (Inferior), no ectopy, other (No acute ST changes) Change: no significant change (10/22/16) ED Course 0918: The patient was evaluated in room B6. A complete history and physical examination were performed. 1001: I reevaluated the patient, who was resting comfortably. The patient's caregiver is here, I updated him on test findings. The caregiver reports significant depression of the patient, noting he has not been compliant with his medication. 1201: The outsole caser spoke with the patient and caregiver, they refused inpatient treatment. 1312: Upon reevaluation, the patient is resting comfortably and feeling significantly better. I discussed the results and treatment plan with him. The patient and caregiver verbalized agreement of the treatment plan. The patient was discharged home. Medical Decision Prior records/ancillary studies reviewed. Patient placed in seizure precautions immediately upon arrival. Nursing notes reviewed. Additional history obtained from pre hospital staff. The patient's history was concerning for a possible seizure. Differential diagnosis: Etiologies such as infection, hypoglycemia, electrolyte abnormalities, cardiac sources, intracerebral event, trauma, toxicologic, neurologic, as well as others were entertained. The patient is a 51-year-old male who has a history of CVA as well as chronic seizure disorder. The patient presented to the emergency department after having a seizure today. The patient was awake alert upon arrival to the emergency department. He received rectal Valium prior to arrival. I discussed the patient's laboratory and radiographic studies with him. His caregiver presented to the emergency Department with him and felt that he was having some problems with depression. He was evaluated by the mental health outsole caser. At this time he does not appear to meet criteria for involuntary admission. The patient was encouraged to continue all medications as prescribed. He was also encouraged to continue to follow-up with his primary care physician as well as his neurologist as soon as possible. Otherwise he was encouraged to return to the emergency department immediately if symptoms change worsen or the need arises. Medication Reconcilliation Current Medication List: was personally reviewed by me Blood Pressure Screening Patient's blood pressure: Elevated blood pressure Blood pressure disposition: Elevated BP felt to be situational Impression Primary Impression: Seizure Additional Impression: Depression Scribe Attestation The scribe's documentation has been prepared under my direction and personally reviewed by me in its entirety. I confirm that the note above accurately reflects all work, treatment, procedures, and medical decision making performed by me. Departure Information Dispostion Home / Self-Care Referrals Helen Troy PA-C (PCP) Forms HOME CARE DOCUMENTATION FORM, IMPORTANT VISIT INFORMATION Patient Instructions My [facility] Problem Qualifiers Additional Impression: Depression Depression Type: unspecified Qualified Codes: F32.9 - Major depressive disorder, single episode, unspecified
[2017-02-10 09:28] VITALS: TEMP 36.6; Ht 180.3 cm; Wt 78.0 kg
--- NOTE | 2017-02-10 09:51 | DIAGNOSTIC IMAGING REPORT ---
SINGLE VIEW CHEST CLINICAL HISTORY: Seizure. FINDINGS: 2 AP, portable, upright chest radiographs are compared to study dated 10/22/2016. The cardiomediastinal silhouette is top normal for projection. The lungs and pleural spaces are clear. No pneumothorax is seen. The bony thorax is grossly intact. IMPRESSION: No acute cardiopulmonary abnormality. Electronically signed by: Leon Gamino M.D. 02/10/2017 9:49 AM Dictated Date/Time: 02/10/2017 9:48 AM
[2017-02-10 10:18] LABS: BASO % 0.1 %; BASO ABS # 0.01 K/uL (0-0.2); EOS % 0.3 %; EOS ABS # 0.02 K/uL (0-0.5); HEMATOCRIT 38.4 % (42-52); HEMOGLOBIN 13.9 g/dL (14.0-18.0); IG# 0.05 K/uL (0.00-0.02); LYMPH % 19.5 %; LYMPH ABS # 1.49 K/uL (1.2-3.4); MEAN CELL VOLUME 88.9 fL (80-100); MEAN CORPUSCULAR HEMOGLOBIN 32.2 pg (25-34); MEAN CORPUSCULAR HGB CONC 36.2 g/dl (32-36); MEAN PLATELET VOLUME 8.4 fL (7.4-10.4); MONO % 6.3 %; MONO ABS # 0.48 K/uL (0.11-0.59); NEUT % 73.1 %; NEUT ABS # 5.59 K/uL (1.4-6.5); PLATELET COUNT 235 K/uL (130-400); RED CELL DISTRIBUTION WIDTH CV 15.2 % (11.5-14.5); RED CELL DISTRIBUTION WIDTH SD 43.6 fL (36.4-46.3); WHITE BLOOD COUNT 7.64 K/uL (4.8-10.8)
[2017-02-10 10:20] LABS: INR 1.1 (0.9-1.1); PTT PATIENT 22.8 SECONDS (21.0-31.0)
[2017-02-10 10:28] LABS: BLOOD UREA NITROGEN 7 mg/dl (7-18); CALCIUM 8.6 mg/dl (8.5-10.1); CARBON DIOXIDE 27 mmol/L (21-32); GLUCOSE 159 mg/dl (70-99); POTASSIUM 3.7 mmol/L (3.5-5.1); SODIUM 137 mmol/L (136-145)
[2017-02-10 10:39] LABS: PHOSPHORUS 2.1 mg/dl (2.5-4.9)
--- NOTE | 2017-02-10 10:43 | DIAGNOSTIC IMAGING REPORT ---
CT OF THE HEAD WITHOUT CONTRAST CLINICAL HISTORY: Seizure. COMPARISON STUDY: Head CT and MRI of the brain October 20, 2016. CT DOSE: 844.62 mGy.cm TECHNIQUE: Helical axial images of the head were obtained without IV contrast. Automated exposure control was utilized for the study. A dose lowering technique was utilized adhering to the principles of ALARA. FINDINGS: This exam is mildly compromised by motion artifact. No acute intracranial hemorrhage, midline shift or mass effect is present. Ventricular system is stable. Encephalomalacia suggestive of old infarct within the left frontoparietal region is unchanged. Old bilateral caudate nucleus infarcts are noted. There are no findings to suggest acute dural sinus thrombosis or acute territorial infarct. There is no calvarial fracture. Right maxillary sinus is diminutive. Mastoid air cells are clear. IMPRESSION: No acute intracranial findings. No change in appearance of the brain. Electronically signed by: Efrain Martin M.D. 02/10/2017 10:42 AM Dictated Date/Time: 02/10/2017 10:36 AM
[2017-02-10 13:00] VITALS: BP 187/113
[2017-02-10 13:06] VITALS: O2SAT 96
[2017-02-10 13:11] VITALS: PULSE 104
[2017-02-10] MEDS ORDERED: ACETAMINOPHEN 500 MG TAB PO STA (13:12)
--- NOTE | 2017-02-10 13:54 | Palliative Care Progress Note ---
Palliative Care Progress Note Date of Service Feb 10, 2017. Subjective Pt evaluation today including: conversation w/ patient, conversation w/ family (caregiver/POA, Júnior Vega) Consult received for this 51 year old male patient who presented to the ED for seizure activity. He has PMH of seizures, CVA with residual hemiparesis and combined expressive/receptive aphasia, and chronic pain syndrome. Patient was expressing to the staff that he no longer wanted to take his medications and wanted to . He was evaluated by the ED behavioral health case assistant and was determined to not be suicidal, but that he wanted to "take a new direction with his health care." Palliative consult was placed for possible POLST form completion. Patient is not being admitted to hospital. I met with the patient and his caregiver/POA, Júnior Cole, in room B6. The patient has combined aphasia, so I communicated through the caregiver and through writing on a marker board. Patient stated he really just wants to complete an advance directive and a POLST form. He does have a completed Power of [employer], which I viewed in our computer system-- names Júnior Cole and Maye Gardner as the POAs. Patient has a complicated history with chronic pain syndrome, failed outpatient treatment for the pain, and now the need for 24/7 care since his CVA several years ago. Given that I am quite unfamiliar with this patient's history and current situation, I do not feel that it's most appropriate for me to do advance care planning with him during our brief visitation in the emergency department. We discussed making an appointment with his PCP to do such planning and the patient and caregiver agree. I also told them about Dr. Dewitt's outpatient palliative care service. Again, they will discuss with patient's PCP. I also explained the difference between a living will and POLST form, they verbalized understanding. Thank you kindly for this consult. Please contact me with any further palliative care needs or if patient is going to be admitted to hospital.
[2017-10-04] MEDS ORDERED: MRLP17X PO (11:41)
[2017-10-04] MEDS ORDERED: VLTG EXT (11:41)
[2017-10-04] MEDS ORDERED: FLUO20CA36 PO (11:41)
[2017-10-04] MEDS ORDERED: LISI40TA3 PO (11:41)
[2017-10-04] MEDS ORDERED: PANT40TA2 PO (11:41)
[2017-10-04] MEDS ORDERED: BISA10SU3 PR (11:43)
[2017-10-04] MEDS ORDERED: ONDA4TAB10 SL (13:47)
== END 2017-02-10 13:34 | disposition home or self-care (01) ==
LOC: EDBD 09:15 → C.EDB 09:16
DX: R56.9 Unspecified convulsions (principal); F17.210 Nicotine dependence, cigarettes, uncomplicated; I69.320 Aphasia following cerebral infarction; I69.351 Hemiplegia and hemiparesis following cerebral infarction affecting right dominant side; Z51.5 Encounter for palliative care; I42.9 Cardiomyopathy, unspecified; F32.9 Major depressive disorder, single episode, unspecified; E11.9 Type 2 diabetes mellitus without complications; F12.90 Cannabis use, unspecified, uncomplicated; Z79.899 Other long term (current) drug therapy; I69.392 Facial weakness following cerebral infarction

== ENCOUNTER 2017-09-29 03:16 | Inpatient (IN) | payer OTHER ==
[~2017-09-29] VITALS: Ht 175.3 cm; Wt 64.1 kg
[~2017-09-29 03:16] MED LIST changes: -ASPI325T39 PO; -ATOR-26 PO; -CARV12.5 PO; -CHOL2000 PO; -GABA800T PO; -LISI-729 PO; -OMEP40CA41 PO; -PROM25TA9 PO; -PRZ/40 PO; -QUET1TAB37 PO; -THIA100T10 PO
[2017-09-29] MEDS ORDERED: SODIUM CHLORIDE 0.9% 1000ML 1,000 ML IV STA ×3 (03:32→04:37)
--- NOTE | 2017-09-29 03:40 | EMERGENCY ROOM VISIT NOTE ---
History Report prepared by Epifanio: Maurizio Hedrick Under the Supervision of: Dr. Angela Myers D.O. First contact with patient: 03:19 Chief Complaint: LACERATION/CUT (SUT/DERMABOND) Stated Complaint: LACERATION/MENTAL HEALTH History of Present Illness The patient is a 51 year old male who presents to the Emergency Room with complaints of an episode of intentional cutting occurring tonight. Per caregiver , the patient has a history of anxiety and depression. He states that the patient cut his right arm with an X-ACTO knife tonight. He notes that the patient did the same thing five years ago. He reports that the patient has not been taking his anxiety and depression medication as prescribed. States he hasn 't been taking his other meds as prescribed and has a history of noncompliance. He states that the patient has not gotten out of bed in the last four days and has hardly had anything to eat in the last two weeks. He notes that the patient has not tried to starve himself in the past. He reports that the patient had a stroke nine and a half years ago and has aphasia and right sided weakness. He states that the patient also has cardiomyopathy and diabetes. He notes that the patient has recently been admitted to hospice because his condition has not been getting any better. He reports that the patient has been complaining of abdominal pain for a few days and he states that the patient vomited a few times yesterday. He notes that the patient has not had any fever, CP, and SOB. HPI limited secondary to the patient's clinical condition and history of aphasia. Initial history provided by EMS as patient was noncompliant and uncooperative with answering questions. Once caregiver arrived he was able to help elaborate on the patient's recent history. Source of History: caregiver History Limited By: aphasia, other (patient's clinical condition) Onset: tonight Position: other (right forearm) Quality: other (intentional cutting) Timing: other (an episode) Associated Symptoms: + vomiting, + abdominal pain, No fevers, No chest pain , No SOB Review of Systems See HPI for pertinent positives & negatives. A total of 10 systems reviewed and were otherwise negative. Past Medical & Surgical Medical Problems: (1) Acute renal failure (2) Acute renal failure syndrome (3) Anticoagulant therapy (4) Anxiety (5) Aphasia (6) Cardiomyopathy (7) CVA (cerebral vascular accident) (8) Depression (9) Diabetes mellitus (10) Elevated serum troponin (11) Hemiparesis (12) Ischemic stroke (13) liver disease (14) LV mural thrombus (15) Seizure (16) Stroke (17) upper GI bleedign, apical thrombus Family History Patient reports no known family medical history. Social History Smoking Status: Current Every Day Smoker Alcohol Use: occasionally Drug Use: marijuana Marital Status: single Housing Status: lives with significant other Occupation Status: unemployed, disabled Current/Historical Medications Scheduled PRN Methocarbamol (Robaxin), 1-2 TAB PO TID PRN for MUSCLE SPASMS Tramadol HCl (Tramadol HCl), 50 MG PO Q6 PRN for Pain Allergies Coded Allergies: Codeine (Verified Allergy, Mild, HIVES, 12/08/15) Physical Exam Vital Signs Date Time Temp Pulse Resp B/P (MAP) Pulse Ox O2 Delivery O2 Flow Rate FiO2 09/29/17 08:19 77 16 154/99 99 Room Air 09/29/17 07:40 92 16 175/117 97 09/29/17 07:20 90 09/29/17 06:31 91 16 165/109 96 09/29/17 06:16 105 21 198/108 100 09/29/17 05:36 121 13 99 09/29/17 05:31 121 14 191/124 100 09/29/17 05:16 118 14 194/122 99 09/29/17 05:01 121 18 194/114 100 09/29/17 04:56 196/114 09/29/17 04:47 188/119 09/29/17 04:46 110 11 100 09/29/17 04:34 189/109 09/29/17 04:31 123 10 173/107 99 09/29/17 04:16 129 21 99 09/29/17 04:01 127 20 100 09/29/17 03:57 138 09/29/17 03:46 150 31 106/89 100 09/29/17 03:34 127/81 09/29/17 03:33 152 09/29/17 03:31 155 20 100 09/29/17 03:20 36.4 156 20 96 Room Air Physical Exam GENERAL: alert, well nourished, no distress, non-toxic, anxious and agitated. Blood noted on patient's shirt and chest wall from injury to RUE. EYE EXAM: normal conjunctiva, PERRL and EOM's grossly intact OROPHARYNX: no exudate, no erythema, lips, buccal mucosa, and tongue normal and mucous membranes are moist, edentulous, dry MM. NECK: supple, no nuchal rigidity, no adenopathy, non-tender LUNGS: Clear to auscultation. Normal chest wall mechanics. Lungs diminished, no wheezes, rhonchi, and rales. HEART: no murmurs, S1 normal and S2 normal, tachycardic but regular. CHEST: No trauma noted to trunk. ABDOMEN: abdomen soft, non-tender, normo-active bowel sounds, no masses, no rebound or guarding. BACK: Back is symmetrical on inspection and there is no deformity, no midline tenderness, no CVA tenderness. SKIN: no rashes and no bruising UPPER EXTREMITIES: RUE weakness that is chronic secondary to stroke, dressing in place by EMS just distal to right AC, unwrapping shows three separate lacerations with the largest being 6cm, no visible tendons, clotting noted and bleeding controlled. Other two lacerations were more superficial and much smaller. No other deformities noted to RUE, pulses present, normal cap refill, compartments soft. LOWER EXTREMITIES: No pitting edema. Full ROM, no evidence of trauma, normal pulses bilaterally. NEURO EXAM: Normal sensorium, cranial nerves II-XII grossly intact, no gross weakness of L arm, no gross weakness of L leg. Receptive and expressive aphasia. Medical Decision & Procedures ER Provider Diagnostic Interpretation: Radiology results have been interpreted by the radiologist and reviewed by me. 2 VIEW FOREARM X-RAY: No fracture, no dislocation, no foreign body. 1 VIEW CHEST X-RAY: Patient rotated. No cardiomegaly, no effusions, no wide mediastinum, no obvious fracture, no pneumothorax. KUB: Abnormal bowel gas pattern. Air in rectum. No definite SBO. Radiology results have been interpreted by the radiologist and reviewed by me. CTA ABDOMEN & PELVIS With Contrast: Mild small bowel wall thickening in keeping with mild enteritis. No obstruction. Radiologist: Dick Lazaro MD. Laboratory Results Test 09/29/17 03:42 09/29/17 04:40 09/29/17 05:22 09/29/17 06:49 Prothrombin Time 10.3 SECONDS (9.0-12.0) Prothromb Time International Ratio 1.0 (0.9-1.1) Activated Partial Thromboplast Time 22.5 SECONDS (21.0-31.0) Partial Thromboplastin Ratio 0.9 Total Bilirubin 1.6 mg/dl (0.2-1) Aspartate Amino Transf (AST/SGOT) 21 U/L (15-37) Alanine Aminotransferase (ALT/SGPT) 20 U/L (12-78) Alkaline Phosphatase 60 U/L (45-117) Troponin I 0.029 ng/ml (0-0.045) Total Protein 7.3 gm/dl (6.4-8.2) Albumin 4.2 gm/dl (3.4-5.0) Globulin 3.1 gm/dl (2.5-4.0) Albumin/Globulin Ratio 1.4 (0.9-2) Lipase 138 U/L (73-393) Thyroid Stimulating Hormone (TSH) 0.593 uIu/ml (0.300-4.500) Chemistry Specimen Hemolysis Ethyl Alcohol mg/dL < 3.0 mg/dl (0-3) Gastric Fluid pH 2 Gastric Fluid Occult Blood POS (NEG) Urine Opiates Screen NEG (NEG) Urine Methadone, Qualitative NEG (NEG) Urine Barbiturates NEG (NEG) Urine Phencyclidine (PCP) Level NEG (NEG) Ur Amphetamine/Methamphetamine NEG (NEG) MDMA (Ecstasy) Screen NEG (NEG) Urine Benzodiazepines Screen NEG (NEG) Urine Cocaine Metabolite NEG (NEG) Urine Marijuana (THC) POS (NEG) Urine Marijuana (THC Carboxy Acid) 41 NG/ML (CUTOFF=5) Bedside Hemoglobin 12.9 g/dl (14.0-18.0) Bedside Hematocrit 38 % (42-52) Bedside Sodium 137 mEq/L (135-144) Bedside Potassium 3.1 mEq/L (3.3-5.0) Bedside Chloride 102 mEq/L (101-112) Bedside Total CO2 18 mEq/l (24-31) Bedside Blood Urea Nitrogen 17 mg/dl (7-18) Bedside Creatinine 0.9 mg/dl (0.6-1.3) Bedside Glucose (other) 182 mg/dl (70-99) Bedside Ionized Calcium (Sarah) 1.20 mmol/l (1.12-1.32) Laboratory results per my review. Medications Administered Medications (Trade) Dose Ordered Sig/Jerson Route Start Time Stop Time Status Last Admin Dose Admin Sodium Chloride 1,000 ml @ 999 mls/hr Q1H1M STAT IV 09/29/17 03:32 09/29/17 04:32 DC 09/29/17 03:43 999 MLS/HR Pantoprazole Sodium 40 mg/ Syringe 10 ml @ 5 mls/min NOW ONCE IV 09/29/17 03:45 09/29/17 03:46 DC 09/29/17 04:28 5 MLS/MIN Lidocaine/ Epinephrine (Xylocaine/Epine 1% Inj) 20 ml STK-MED ONCE .ROUTE 09/29/17 03:58 09/29/17 03:59 DC 09/29/17 04:00 20 ML Sodium Chloride 1,000 ml @ 999 mls/hr Q1H1M STAT IV 09/29/17 04:14 09/29/17 05:14 DC 09/29/17 04:14 999 MLS/HR Cefazolin Sodium (Cefazolin 1000mg Iv Push) 1,000 mg NOW STAT IV 09/29/17 04:14 09/29/17 04:15 DC 09/29/17 04:30 1,000 MG Diphtheria/ Pertussis/Tetanus Vacc (Adacel Inj) 0.5 ml ONCE ONCE IM. 09/29/17 04:15 09/29/17 04:16 DC 09/29/17 04:29 0.5 ML Sodium Chloride 1,000 ml @ 250 mls/hr Q4H STAT IV 09/29/17 04:37 09/29/17 08:36 DC 09/29/17 04:57 250 MLS/HR Labetalol HCl (Normodyne IV) 10 mg NOW STAT IV 09/29/17 06:01 09/29/17 06:02 DC 09/29/17 06:28 10 MG Levetiracetam 1000 mg/Dextrose 110 ml @ 440 mls/hr ONE ONCE IV 09/29/17 06:15 09/29/17 06:29 DC 09/29/17 06:35 440 MLS/HR Fentanyl Citrate (Fentanyl Inj) 50 mcg NOW STAT IV 09/29/17 06:17 09/29/17 06:18 DC 09/29/17 06:30 50 MCG Hydralazine HCl (HydrALAZINE INJ) 5 mg NOW STAT IV. 09/29/17 07:31 09/29/17 07:32 DC 09/29/17 07:45 5 MG Ondansetron HCl (Zofran Inj) 4 mg Q6H PRN IV 09/29/17 08:30 10/29/17 08:29 10/03/17 11:57 4 MG Morphine Sulfate (MoRPHine SULFATE INJ) 2 mg Q6 PRN IV 09/29/17 08:30 10/13/17 08:29 10/03/17 20:16 2 MG ECG Per My Interpretation Indication: altered mental status Rate (beats per minute): 147 Rhythm: sinus tachycardia Findings: no acute ischemic change, other (Normal axis, prolonged QT, normal QRS) ED Course 0319: The patient was evaluated in room B1. A complete history and physical exam was performed. 0332: Sodium Chloride 1000 ml @ 999 mls/hr IV 0344: I reevaluated and updated the patient. He had an IV placed in his foot. 0345: Pantoprazole Sodium 40mg/Syringe 10 ml @ 5 mls/min IV 0358: I rechecked the patient. His heart rate is now in the 130s. 0359: Ativan Inj 1mg IV 0405: The patient's laceration was repaired by Lauren Bonilla PA-C. Please see her laceration repair note for procedure. 0412: I reevaluated and updated the patient. 0414: Cefazolin Sodium 1000mg IV 0415: Adacel Inj 0.5ml IM 0416: I rechecked the patient. He is much calmer and more cooperative. His heart rate is down to 125. 0450: I reevaluated and updated the patient. He is calm and cooperative. His heart rate is down to 117. 0601: Labetalol HCl 10mg IV 0615: Levetiracetam 1000 mg/Dextrose 110ml @ 440 mls/hr IV 0625: I rechecked the patient. His heart rate is 106. He states that he has some abdominal pain. He is aware of his results and agreeable with the current treatment plan. 0617: Fentanyl Citrate 50mcg IV 0745: Upon reevaluation, the patient is stable. I discussed the findings and the treatment plan with the patient. He expresses agreement and understanding. I spoke with hospitalist of the [facility]. The patient will be evaluated for further management. Medical Decision Differential diagnosis: Etiologies such as fracture, dislocation, intra-abdominal, pneumothorax, intrathoracic, intracranial, neurologic, toxicologic, infection, hypoglycemia, electrolyte abnormalities, cardiac sources, intracerebral event, as well as other traumatic pathologies were entertained. Patient was complicated medical history including prior stroke. Patient attempted to commit suicide by cutting his left arm. Following EMS arrival, they also noted patient was vomiting up reddish-brown liquids. The patient's caregiver arrived and was able to provide additional information, he stated patient had been intentionally refusing to eat or drink, refusing to take his medications. Patient found to have GI bleed, initially very tachycardic in the 160s, however this did improve with volume resuscitation. Patient was given IV Protonix, lacerations to the right arm were examined, irrigated, and repaired. Please see the PA note for additional details regarding this. Additional imaging was reassuring. Blood pressures remained stable and patient improved hemodynamically. No recurrent vomiting was noted. Concern for possible left ventricular apical thrombus noted on CT abdomen and pelvis, this was communicated to the admitting hospitalist Dr. Preston. Concerned given possible need for anticoagulation however patient with GI bleed noted. Dr. Preston will adjust with cardiology. Unclear why patient has been intermittently on hospice and is currently supposed to be on hospice according to his caregiver. Patient does have prior history of suicide attempts. Patient is aware of all results, most of which need to be written down for him on paper to help with his understanding given his limitations from his prior CVA. Medication Reconcilliation Current Medication List: was personally reviewed by ms Blood Pressure Screening Patient's blood pressure: Elevated blood pressure Elevated blood pressure will be monitored by hospitalist. Consults Time Called: 07 Consulting Physician: Dr. Garza - Hospitalist, [facility] Returned Call: [phone] I reviewed the patient's case with Dr. Garza. He will evaluate the patient for further management. Impression Primary Impression: Suicide attempt Additional Impressions: GI bleed Dehydration Tachycardia Laceration of right forearm Voluntary starvation Non-compliance Hypertension Critical Care I have personally spent 45 minutes of critical care time in the direct management of this patient. This includes bedside care, interpretation of diagnostic studies, and testing, discussion with consultants, patient, and family members, and other required patient management activities. This 45 minutes is in excess of all separately billable procedures. Scribe Attestation The scribe's documentation has been prepared under my direction and personally reviewed by me in its entirety. I confirm that the note above accurately reflects all work, treatment, procedures, and medical decision making performed by me. Departure Information Dispostion Being Evaluated By Hospitalist Referrals Helen Troy PA-C (PCP) Patient Instructions My [facility] Problem Qualifiers Additional Impressions: GI bleed GI bleed type/associated pathology: unspecified gastrointestinal hemorrhage type Qualified Codes: K92.2 - Gastrointestinal hemorrhage, unspecified Laceration of right forearm Encounter type: initial encounter Qualified Codes: S51.811A - Laceration without foreign body of right forearm, initial encounter Hypertension Hypertension type: essential hypertension Qualified Codes: I10 - Essential ( primary) hypertension
[2017-09-29] MEDS ORDERED: ULT50 PO (03:44)
[2017-09-29] MEDS ORDERED: PANTOprazole INJ 40 MG in SYRINGE 0 ML IV ONE (03:45)
[2017-09-29] MEDS ORDERED: LIDOCAINE/EPINEPHRINE 1% 20 ML VIAL ONE (03:58)
[2017-09-29] MEDS ORDERED: LORAZEPAM 2 MG/ML 1 ML VIAL IV STA (03:59)
[2017-09-29 04:14] LABS: BASO % 0.1 %; BASO ABS # 0.01 K/uL (0-0.2); HEMATOCRIT 48.6 % (42-52); IG# 0.06 K/uL (0.00-0.02); LYMPH % 9.8 %; MEAN CELL VOLUME 100.8 fL (80-100); MEAN CORPUSCULAR HEMOGLOBIN 37.3 pg (25-34); MEAN PLATELET VOLUME 10.9 fL (7.4-10.4); MONO % 9.8 %; MONO ABS # 1.49 K/uL (0.11-0.59); NEUT % 79.9 %; NEUT ABS # 12.19 K/uL (1.4-6.5); PLATELET COUNT 248 K/uL (130-400); RED CELL DISTRIBUTION WIDTH CV 13.2 % (11.5-14.5); WHITE BLOOD COUNT 15.25 K/uL (4.8-10.8)
[2017-09-29] MEDS ORDERED: CEFAZOLIN SOD 1000MG/7.5 ML IV PUSH IV STA (04:14)
--- NOTE | 2017-09-29 04:14 | EMERGENCY ROOM VISIT NOTE ---
ED Visit Note I was asked to do the peripheral line and laceration repair as of this patient. Utilizing ultrasound, the antecubital vein was visualized and using antiseptic technique an 18-gauge catheter was placed without difficulties. The line flushed without difficulties. Patient tolerated procedure well. No complications. Location: right forearm Total length: 10cm Complexity: simple Verbal consent was obtained after the risks and benefits were explained, including but not limited to bleeding, scarring, infection, pain, and bone/joint /nerve damage. At this time, the risks of the procedure are less than the risks of NOT performing the procedure. A time out was taken and the correct patient and site identified. The skin was prepped with betadine. The target area was anesthetized with 8 ml of 1% lidocaine with epinephrine. Copious irrigation was performed using NSS. The skin was re-prepped with betadine and a sterile field set. The wound was explored for foreign bodies and none found. Examination revealed no injury to deep structures such as tendons, bone, or significant blood vessels. Debridement was not performed. The wound edges were approximated using 14 omar. Hemostasis and excellent approximation was achieved. Antibacterial ointment and a sterile dressing applied. Detailed wound care instructions and signs and symptoms of infection reviewed with the pt. No complications and the patient tolerated the procedure well. Location: right forearm Total length: 8cm Complexity: simple Verbal consent was obtained after the risks and benefits were explained, including but not limited to bleeding, scarring, infection, pain, and bone/joint /nerve damage. At this time, the risks of the procedure are less than the risks of NOT performing the procedure. A time out was taken and the correct patient and site identified. The skin was prepped with betadine. The target area was anesthetized with 5 ml of 1% lidocaine with epinephrine. Copious irrigation was performed using NSS. The skin was re-prepped with betadine and a sterile field set. The wound was explored for foreign bodies and none found. Examination revealed no injury to deep structures such as tendons, bone, or significant blood vessels. Debridement was not performed. The wound edges were approximated using 10 omar. Hemostasis and excellent approximation was achieved. Antibacterial ointment and a sterile dressing applied. Detailed wound care instructions and signs and symptoms of infection reviewed with the pt. No complications and the patient tolerated the procedure well. Location: right forearm Total length: 1cm Complexity: simple Verbal consent was obtained after the risks and benefits were explained, including but not limited to bleeding, scarring, infection, pain, and bone/joint /nerve damage. At this time, the risks of the procedure are less than the risks of NOT performing the procedure. A time out was taken and the correct patient and site identified. The skin was prepped with betadine. The target area was anesthetized with 1 ml of 1% lidocaine with epinephrine. Copious irrigation was performed using NSS. The skin was re-prepped with betadine and a sterile field set. The wound was explored for foreign bodies and none found. Examination revealed no injury to deep structures such as tendons, bone, or significant blood vessels. Debridement was not performed. The wound edges were approximated using 2 omar. Hemostasis and excellent approximation was achieved. Antibacterial ointment and a sterile dressing applied. Detailed wound care instructions and signs and symptoms of infection reviewed with the pt. No complications and the patient tolerated the procedure well. Problem List Medical Problems: (1) Acute renal failure Status: Resolved (2) Acute renal failure syndrome Status: Resolved (3) Anticoagulant therapy Status: Chronic (4) Aphasia Status: Chronic (5) Cardiomyopathy Permanent Comment: 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% Status: Chronic (6) CVA (cerebral vascular accident) Status: Resolved (7) Depression Status: Chronic (8) Diabetes mellitus Status: Chronic (9) Hemiparesis Permanent Comment: right hemiparesis Status: Chronic (10) Ischemic stroke Permanent Comment: left MCA received TPA echo- LV mural thrombus residual right hemiparesis + aphasia Status: Resolved (11) liver disease Status: Chronic (12) LV mural thrombus Permanent Comment: 2008 Status: Resolved (13) Seizure Status: Chronic Current/Historical Medications Scheduled PRN Methocarbamol (Robaxin), 1-2 TAB PO TID PRN for MUSCLE SPASMS Tramadol HCl (Tramadol HCl), 50 MG PO Q6 PRN for Pain Allergies Coded Allergies: Codeine (Verified Allergy, Mild, HIVES, 12/08/15) Vital Signs Date Time Temp Pulse Resp B/P (MAP) Pulse Ox O2 Delivery O2 Flow Rate FiO2 09/29/17 03:57 138 09/29/17 03:33 152 Laboratory Results Test 09/29/17 03:32 09/29/17 03:42 Medications Administered Medications (Trade) Dose Ordered Sig/Jerson Route Start Time Stop Time Status Last Admin Dose Admin Sodium Chloride 1,000 ml @ 999 mls/hr Q1H1M STAT IV 09/29/17 03:32 09/29/17 04:32 09/29/17 03:43 999 MLS/HR Departure Information Referrals Helen Troy PA-C Patient Instructions My [facility]
[2017-09-29] MEDS ORDERED: DIPHTHERIA/TETANUS/PERTUSSIS 0.5 ML SYR/VIAL IM. ONE (04:15)
[2017-09-29 04:26] LABS: PTT PATIENT 22.5 SECONDS (21.0-31.0)
[2017-09-29 05:19] LABS: ALBUMIN 4.2 gm/dl (3.4-5.0); ALKALINE PHOSPHATASE 60 U/L (45-117); ALT/SGPT 20 U/L (12-78); AST/SGOT 21 U/L (15-37); BLOOD UREA NITROGEN 17 mg/dl (7-18); CALCIUM 10.4 mg/dl (8.5-10.1); CARBON DIOXIDE 13 mmol/L (21-32); CREATININE 1.57 mg/dl (0.60-1.40); GLUCOSE 169 mg/dl (70-99); LIPASE 138 U/L (73-393); PHOSPHORUS 2.5 mg/dl (2.5-4.9); POTASSIUM 3.7 mmol/L (3.5-5.1); SODIUM 134 mmol/L (136-145); TOTAL PROTEIN 7.3 gm/dl (6.4-8.2)
[2017-09-29] MEDS ORDERED: OPTIRAY 320 IV PRN (05:30)
[2017-09-29] MEDS ORDERED: LABETALOL HCL IV 5 MG/ML 20ML IV STA (06:01)
[2017-09-29] MEDS ORDERED: LEVETIRACETAM IV 1,000 MG in DEXTROSE 5% 100ML 100 ML IV ONE (06:15)
[2017-09-29] MEDS ORDERED: FENTANYL CITRATE INJ 50 MCG/1 ML 2 ML VIAL IV STA (06:17)
--- NOTE | 2017-09-29 06:38 | DIAGNOSTIC IMAGING REPORT ---
R FOREARM 2 VIEWS ROUTINE CLINICAL HISTORY: laceration trauma COMPARISON: None. DISCUSSION: The bones and joint spaces appear intact. There is no evidence of fracture, dislocation or bony disease. Soft tissue disruption/laceration over the proximal forearm IMPRESSION: Negative study. Soft tissue laceration. No acute bony abnormality. The above report was generated using voice recognition software. It may contain grammatical, syntax or spelling errors. Electronically signed by: Viral Sullivan M.D. 09/29/2017 6:36 AM Dictated Date/Time: 09/29/2017 6:36 AM
--- NOTE | 2017-09-29 06:44 | DIAGNOSTIC IMAGING REPORT ---
CHEST ONE VIEW PORTABLE CLINICAL HISTORY: tachycardia chest pain COMPARISON STUDY: 02/10/2017 FINDINGS: The bones soft tissues and hemidiaphragms are normal. The cardiomediastinal silhouette is normal. The lungs are clear. The pulmonary vasculature is normal. IMPRESSION: Negative chest. The above report was generated using voice recognition software. It may contain grammatical, syntax or spelling errors. Electronically signed by: Viral Sullivan M.D. 09/29/2017 6:42 AM Dictated Date/Time: 09/29/2017 6:41 AM
--- NOTE | 2017-09-29 06:52 | DIAGNOSTIC IMAGING REPORT ---
KEKE CLINICAL HISTORY: vomiting nausea COMPARISON STUDY: 10/20/2016 FINDINGS: Nonobstructive ileus. Air-filled loops of colon as well as small bowel. No secondary signs of free air. IMPRESSION: Ileus. The above report was generated using voice recognition software. It may contain grammatical, syntax or spelling errors. Electronically signed by: Viral Sullivan M.D. 09/29/2017 6:51 AM Dictated Date/Time: 09/29/2017 6:50 AM
[2017-09-29 07:07] LABS: ISTAT CREATININE 0.9 mg/dl (0.6-1.3); ISTAT IONIZED CALCIUM 1.2 mmol/l (1.12-1.32); ISTAT POTASSIUM 3.1 mEq/L (3.3-5.0)
[2017-09-29] MEDS ORDERED: HydrALAZINE HCL 20 MG/ML VIAL IV. STA (07:31)
--- NOTE | 2017-09-29 07:53 | DIAGNOSTIC IMAGING REPORT ---
ABDOMEN AND PELVIS CTA WITH IV CONTRAST CT DOSE: 334.81 mGy.cm HISTORY: GI bleed. Vomiting. TECHNIQUE: Multiaxial CT images of the abdomen and pelvis were performed following the use of intravenous contrast to evaluate the major dural structures. Maximal intensity projection images are also obtained.. A dose lowering technique was utilized adhering to the principles of ALARA. COMPARISON STUDY: Abdomen and pelvis CT 05/08/2015. FINDINGS: Normal caliber abdominal aorta with no evidence for dissection. The celiac and mesenteric arteries are patent. The bilateral iliac arteries are patent. There is approximately 50% focal stenosis within the proximal right superficial femoral artery. Focal smooth moderate to severe narrowing within the proximal right renal artery and mild narrowing within the proximal left renal artery. Focal hypodensity within the apex of the left ventricle which measures 2.5 cm. This could represent thrombus. The lung bases are clear. No pneumoperitoneum. No pneumatosis. Old, healed right lower rib fractures. Mild thickening of the distal esophagus. Hepatic steatosis. The gallbladder, pancreas, spleen, adrenal glands, and kidneys are unremarkable. No hydronephrosis. No retroperitoneal lymphadenopathy. The bladder is unremarkable. No bowel wall thickening or obstruction. Normal appendix. IMPRESSION: 1. Focal hypodensity within the apex of the left ventricle measuring 2.5 cm. This may represent thrombus. Follow-up echocardiogram is recommended for confirmation. 2. Focal smooth moderate to severe narrowing within the proximal right renal artery and mild narrowing within the proximal left renal artery. 3. No bowel obstruction. 4. Normal appendix. 5. Mild thickening of the distal esophagus. This favors a nonspecific esophagitis. Follow-up endoscopy can be performed for further evaluation. . 6. These findings were called/faxed to the referring physician following dictation. Electronically signed by: Luke Arenas M.D. 09/29/2017 7:52 AM Dictated Date/Time: 09/29/2017 7:39 AM
[2017-09-29] MEDS ORDERED: ACETAMINOPHEN 325 MG TAB PO PRN (08:30)
[2017-09-29] MEDS ORDERED: MAGNESIUM HYDROXIDE SUSP 30 ML UDC PO PRN (08:30)
[2017-09-29] MEDS ORDERED: ZOLPIDEM TARTRATE 5 MG TAB PO PRN (08:30)
[2017-09-29] MEDS ORDERED: ALUMINUM/MAGNESIUM/SIMETH (MAALOX MAX) 30 ML UDC PO PRN (08:30)
[2017-09-29] MEDS ORDERED: HydrALAZINE HCL 20 MG/ML VIAL IV. PRN ×2 (08:30→09:15)
[2017-09-29] MEDS ORDERED: POLYETHYLENE (MIRALAX) 17 GM PACK PO PRN (08:30)
[2017-09-29] MEDS ORDERED: PANTOprazole INJ 80 MG in DEXTROSE 5% 100ML IV ONE (10:00)
[2017-09-29] MEDS: PANTOprazole INJ 40 MG in DEXTROSE 5% 100ML IV SCH ×3 (10:29→20:06)
--- NOTE | 2017-09-29 10:50 | HISTORY & PHYSICAL EXAMINATION ---
DATE OF ADMISSION: 09/29/2017 This is a full admission H and P, 40 minutes. CHIEF COMPLAINT: Upper GI bleeding and cardiac apex thrombosis. HISTORY OF PRESENT ILLNESS: Patient is a 51-year-old with a complex medical history includes anxiety, aphasia from stroke and stroke, cardiomyopathy, CVA, history of depression, diabetic hemiparesis, left ventricular mural thrombosis, seizure, coming into the hospital Emergency Department because of laceration and cut in her right forearm. Patient lives with caregiver, 24 x 7 coverage with caregiver, there were episodes of intentional cutting occurred last night, patient with history of anxiety and depression, per report from the ED physician and patient himself patient cut right arm with knife, patient did the same several years ago, also reports the patient has not been taking anxiety and depression medications as prescribed. Significant medical history of noncompliance. Also reports the patient has not been out of bed for 4 or 5 days, not eating anything in last 2 weeks. Caregiver also reported has the cardiomyopathy and diabetic. Significantly, patient has been in hospice care for years, not able to tell what is the reason of the hospice care, patient also complains of abdominal pain for a few days associated with dark liquid emesis. In the Emergency Room, emesis guaiac test was positive, patient's right forearm has stapled and in dress. When I interviewed with him, he looked flat, mildly depressed, conversational, answered simple questions. When asked what his name was, he did not want to say, he did report to me abdominal pain. When asking more questions, he feels frustrated and does not want to answer, therefore the information is limited. REVIEW OF SYSTEMS: Not able to obtain. PAST MEDICAL HISTORY: Includes acute renal failure, anxiety, aphasia, cardiomyopathy, history of stroke, depression, diabetic hemiparesis, liver disease, left ventricular mural thrombosis, seizure, and stroke. ALLERGIES: CODEINE. FAMILY HISTORY: No known family medical history. SOCIAL HISTORY: Patient currently everyday smoking, occasional alcohol intake, using marijuana. Patient is single and lives with significant other. He is unemployed and has 24/7 caregiver. MEDICATIONS: As needed at home include Robaxin 1-2 tab p.o. t.i.d. p.r.n. for muscle spasm, tramadol 50 mg p.o. q. 6 hours p.r.n. for the pain. PHYSICAL EXAMINATION: VITAL SIGNS: Temperature is 36.4, pulse was up to 156, which improved to 92, respirations 16, blood pressure currently is 175/117, pulse ox 97% in room air. GENERAL: Patient is a white male, looks frail, depressed, anxious, uncomfortable. Right forearm was stable and in dress, able to move left arm and left lower extremity. HEAD: Normocephalic. EYES: Pupils equal, round, responds to light. EARS: Ear was normal. NOSE: Normal. NECK: Supple. Thyroid no enlargement. Trachea midline. HEART: Regular rhythm. S1, S2. LUNGS: Decreased breathing sounds. There were no wheezing, rhonchi and crackles. ABDOMEN: Soft, nontender, in the skin of the abdomen shows some blood in there, but there was not any open wound, mild tender in palpation. BACK: Symmetric. Normal inspection. No CVA tenderness. SKIN: Has no rashes. Right upper extremity, not able to move because of CVA. There was lacerations, largest was 6 cm per ED note and there was no visible tendon, there was no clot. He was stable. Pulse was present and capillary refill was normal. EXTREMITIES: Lower extremities, no edema. Normal range of motion. NEUROLOGICAL EVALUATION: Cranial nerves II-XII were intact. There was no local deficit in the face. There was some receptive and expressive aphasia. LABORATORY STUDIES: In the Emergency Room WBC 15, hemoglobin 18, platelets 248. PT/INR 10/1. Sodium 137, potassium 3.1, chloride 102. Bicarbonate 18, BUN 17, creatinine 1.57. Blood glucose 182. Total bilirubin 1.6. Otherwise, liver function test was within normal limits. TSH 0.9. Positive screening, marijuana positive. Alcohol negative, gastric occult test was positive. IMAGING STUDIES: In the Emergency Room, there was focal hypodensity in the apex of left ventricle 2.5 cm, maybe thrombosis, right renal artery focus moves [id number] narrowing, no bowel obstructions, normal appendix, there was mild thickened distal esophagus. Right forearm x-ray negative studies, soft tissue laceration, no acute bony abnormalities. Chest x-ray negative. KUB shows ileus. EKG in the Emergency Room which shows sinus tachy. ASSESSMENT AND PLAN: A 51-year-old white male with problems see below: 1. Emesis possibly associated with upper gastrointestinal bleeding with emesis, guaiac testing positive. 2. Possible ileus. 3. Apical thrombosis with history of cardiomyopathy. 4. Accelerated hypertension. 5. History of diabetic. 6. Leukocytosis, chest x-ray negative. 7. Hypokalemia. 8. Acute kidney injuries with creatinine 1.57, which is new. 9. Possible marijuana abuse. 10. Right forearm laceration status post staple. 11. Possible suicidal. 12. History of seizure. 13. History of stroke with right side paralyzed. For the above complex medical conditions, we will have patient in the PCU admission in the tele, gentle IV fluid, watch for fluid overload because of cardiomyopathy, follow H and H, start a Protonix drip, GI consultation, patient has ventricle thrombosis possible. We will check echocardiogram, cardiology consultation, feel do not need anticoagulation for now. Actually patient's general conditions with history of possible end-stage disease, stroke, cardiomyopathy and was in hospice care, and DNR, possible no anticoagulation for now also, because of possible upper gastrointestinal bleeding, will have cardiology consultation: 1. Patient has a possible significant depression and suicidal, he has the same history, 1:1 sitter. We will have psychiatry consultation. 2. Accelerated hypertension, we will give hydralazine as needed. 3. Leukocytosis. We will check UA. 4. Hypokalemia. We will replace. 5. Acute kidney failure, will be treated by IV fluid and follow up BUN and creatinine. We will have seizure precaution and suicidal precaution, we will keep n.p.o. for now. We will have palliative care consult, PT, OT if needed and oncology social work consultation. ALFIE
[2017-09-29] MEDS ORDERED: INSULIN ASPART 100 UNITS/ML 3 ML PEN SC SCH (11:00)
[2017-09-29] MEDS ORDERED: CARBOHYDRATES FOR HYPOGLYCEMIA PO PRN (11:45)
[2017-09-29] MEDS ORDERED: GLUCOSE 40% GEL 15 GM TUBE PO PRN (11:45)
[2017-09-29] MEDS ORDERED: GLUCOSE 10 TABS/TUBE PO PRN (11:45)
[2017-09-29] MEDS ORDERED: GLUCAGON FOR INJ 1 MG VIAL IM PRN (11:45)
[2017-09-29] MEDS ORDERED: DEXTROSE 50% 50 ML SYR IV PRN (11:45)
[2017-09-29 11:56] VITALS: BP 160/97; PULSE 96; TEMP 36.7; O2SAT 97; BMI 20.3
[2017-09-29] MEDS: NSS + 20MEQ KCL 1000ML 1,000 ML IV SCH (12:32)
--- NOTE | 2017-09-29 12:52 | ECHOCARDIOGRAM REPORT ---
*NOTICE TO RECEIVING CONSTITUTION PARTY AGENCY This information is strictly Confidential and protected under [place] law. [place] law prohibits you from making any further disclosure of this information unless further disclosure is expressly permitted by the written consent of the person to whom it pertains or is authorized by law. A general authorization for the release of medical or other information is not sufficient for this purpose. Hospital accepts no responsibility if the information is made available to any other person, INCLUDING THE PATIENT. Interpretation Summary * Name: TACHO DEAL Study Date: 09/29/2017 09:54 AM BP: 154/99 mmHg * Patient Location: C.EDB HR: 77 * : 1965 (M/d/yyyy) Gender: Male Height: 69 in * Age: 51 yrs Ethnicity: CA Weight: 137 lb * Ordering Physician: Nathaniel Preston * Performed By: Drew Lambert RCS * * Reason For Study: Apical Thrombus, Upper GI Bleeding * BSA: 1.8 m2 * -- Conclusions -- * There is normal left ventricular wall thickness. * Left ventricular systolic function is mildly reduced. * Grade I diastolic dysfunction, (abnormal relaxation pattern). * There are regional wall motion abnormalities as specified. * There is a large apical thrombus. * Right ventricular systolic pressure is normal. * Compared to an echocardiogram from 10/20/2016, the overall LV systolic function appears improved. There is now an apical thrombus. Procedure Details * A complete two-dimensional transthoracic echocardiogram was performed (2D, M-mode, Doppler and color flow Doppler). * The study was technically difficult. * There were technical limitations due to patient'spoor positioning * Patient in supine position for imagining. Contrast was injected into an intravenous site in the right foot. * A contrast injection of Definity was performed to improve assessment of LV function. * A contrast injection of Definity was performed to improve assessment for apical thrombus. * One vial of Definity ultrasound contrast was diluted in normal saline to a total volume of 10 ml. A total of '2' ml of solution was administered during imaging. * Lot # [id number] of Definity utilized for procedure. * Expiration date 1JUL19. * The attending nurse who injected the contrast agent was Drew Hanson RN. Left Ventricle * The left ventricle is grossly normal size. * There is a large apical thrombus. * There is normal left ventricular wall thickness. * Distal septum appears thin * Ejection Fraction = 40-45%. * Left ventricular systolic function is mildly reduced. * Grade I diastolic dysfunction, (abnormal relaxation pattern). * There are regional wall motion abnormalities as specified. * The basal septum is severely hypokinetic with akinesis of the distal septum and posterior portions of the apex. Right Ventricle * The right ventricle is grossly normal size. * The right ventricular systolic function is normal. Atria * The left atrial size is normal. * Right atrium not well visualized. Mitral Valve * The mitral valve is grossly normal. * Significant mitral regurgitation is absent. Tricuspid Valve * The tricuspid valve is not well visualized. * There is trace tricuspid regurgitation. * Right ventricular systolic pressure is normal. Aortic Valve * The aortic valve is not well visualized. * No hemodynamically significant valvular aortic stenosis. * There is no significant aortic regurgitation. Pulmonic Valve * The pulmonic valve is not well visualized. Great Vessels * The aortic root is normal size. Pericardium/Pleural * There is no pericardial effusion. MMode 2D Measurements and Calculations IVSd 0.89 cm IVSs 0.93 cm LVIDd 4.0 cm LVIDs 3.3 cm LVPWd 0.81 cm LVPWs 0.89 cm IVS/LVPW 1.1 FS 18.0 % EDV(Teich) 72.0 ml ESV(Teich) 44.8 ml EF(Teich) 37.8 % EDV(cubed) 66.3 ml ESV(cubed) 36.6 ml EF(cubed) 44.8 % % IVS thick 4.6 % % LVPW thick 9.9 % LV mass(C)d 103.5 grams LV mass(C)dI 58.8 grams/m\S\2 LV mass(C)s 83.2 grams LV mass(C)sI 47.3 grams/m\S\2 CO(Teich) 2.9 l/min CI(Teich) 1.6 l/min/m\S\2 SV(Teich) 27.2 ml SI(Teich) 15.5 ml/m\S\2 CO(cubed) 3.2 l/min CI(cubed) 1.8 l/min/m\S\2 SV(cubed) 29.7 ml SI(cubed) 16.9 ml/m\S\2 Ao root diam 3.0 cm Ao root area 7.1 cm\S\2 ACS 1.6 cm LA dimension 2.4 cm asc Aorta Diam 3.2 cm LA/Ao 0.79 LVAd ap4 37.0 cm\S\2 LVLd ap4 9.3 cm EDV(MOD-sp4) 119.0 ml LVAs ap4 28.8 cm\S\2 LVLs ap4 8.7 cm ESV(MOD-sp4) 78.1 ml EF(MOD-sp4) 34.4 % LVAd ap2 34.3 cm\S\2 LVLd ap2 8.8 cm EDV(MOD-sp2) 111.0 ml LVAs ap2 29.7 cm\S\2 LVLs ap2 9.0 cm ESV(MOD-sp2) 80.2 ml EF(MOD-sp2) 27.7 % CO(MOD-sp4) 4.3 l/min CI(MOD-sp4) 2.5 l/min/m\S\2 SV(MOD-sp4) 40.9 ml SI(MOD-sp4) 23.3 ml/m\S\2 CO(MOD-sp2) 3.3 l/min CI(MOD-sp2) 1.9 l/min/m\S\2 SV(MOD-sp2) 30.8 ml SI(MOD-sp2) 17.5 ml/m\S\2 Doppler Measurements and Calculations Ao V2 max 114.0 cm/sec Ao max PG 5.2 mmHg Ao max PG (full) 2.4 mmHg LV V1 max PG 2.8 mmHg LV V1 max 82.9 cm/sec PA V2 max 94.2 cm/sec PA max PG 3.6 mmHg TR max mian 193.3 cm/sec
[2017-09-29 14:26] LABS: HEMOGLOBIN 14.1 g/dL (14.0-18.0)
[2017-09-29 15:03] VITALS: BP 172/105; PULSE 109; TEMP 36.6; O2SAT 98
[2017-09-29] MEDS: MoRPHine SULFATE 2 MG/ML CARP IV PRN (15:03)
[2017-09-29] MEDS: ONDANSETRON INJ 2 MG/ML 2 ML VIAL IV PRN (15:03)
--- NOTE | 2017-09-29 15:13 | Cardiology Consultation ---
Cardiology Consultation Date of Consultation: Sep 29, 2017. Requesting Physician: Kary Reason for Consultation: LV thrombus Pt evaluation today including: conversation w/ patient, physical exam, chart review, lab review, review of studies, review of inpatient medication list, conversation w/ attending History of Present Illness Patient is a 51-year-old gentleman with an extensive past medical history to include presumed nonischemic cardiomyopathy and history of left ventricular apical thrombus. It seems the patient has been on palliative care for an extended period of time and recently has discontinued all medications except those associated with comfort measures. The patient was also reportedly more depressed and withdrawn recently. He apparently has not had much oral intake and has been in bed for few days. In this setting he produced a self-inflicted injury to his right forearm. He was brought to the emergency room for evaluation where he was also felt to have symptoms of abdominal discomfort. CT imaging of the thorax and abdomen revealed an intracardiac mass suspicious for left ventricular thrombus. As such Cardiology was consulted for an opinion. The patient is able to communicate with some difficulty. Due to expressive aphasia. He did report some symptoms of abdominal discomfort especially with pickups. He did not report breathing trouble. It was unclear if he had made efforts to get out of bed recently. Past Medical/Surgical History Cerebral vascular accident with residual right jacob paresis Depression Nonischemic cardiomyopathy Diabetes mellitus Gastroesophageal reflux disease Hypertension Hyperlipidemia Prostatitis History of seizures Family History Patient reports no known family medical history. Noncontributory Social History Smoking Status: Current Every Day Smoker History of Alcohol Use: No Currently has a caregiver. Patient is essentially bed-bound with some use of a wheelchair. Review of Systems Difficult to obtain given the patient's aphasia and unwillingness to answer some questions. All Other Systems: Reviewed and Negative Allergies Coded Allergies: Codeine (Verified Allergy, Mild, HIVES, 12/08/15) Medications Current Inpatient Medications Medications (Trade) Dose Ordered Sig/Jerson Route Start Time Stop Time Status Last Admin Dose Admin Ioversol (Optiray 320) 125 ml UD PRN IV 09/29/17 05:30 10/03/17 05:29 Potassium Chloride/Sodium Chloride 1,000 ml @ 80 mls/hr [id number] IV 09/29/17 12:00 10/29/17 08:25 09/29/17 12:32 80 MLS/HR Acetaminophen (Tylenol Tab) 650 mg Q4H PRN PO 8/17/18 08:30 10/29/17 08:29 Al Hydrox/Mg Hydrox/Simethicone (Maalox Max Susp) 15 ml Q4H PRN PO 09/29/17 08:30 10/29/17 08:29 Magnesium Hydroxide (Milk Of Magnesia Susp) 30 ml Q12H PRN PO 09/29/17 08:30 10/29/17 08:29 Zolpidem Tartrate (Ambien Tab) 5 mg HSZ PRN PO 09/29/17 08:30 10/29/17 08:29 Ondansetron HCl (Zofran Inj) 4 mg Q6H PRN IV 09/29/17 08:30 10/29/17 08:29 Polyethylene (Miralax Powder Packet) 17 gm DAILY PRN PO 09/29/17 08:30 10/29/17 08:29 Morphine Sulfate (MoRPHine SULFATE INJ) 2 mg Q6 PRN IV 09/29/17 08:30 10/13/17 08:29 Hydralazine HCl (HydrALAZINE INJ) 10 mg Q6 PRN IV. 09/29/17 09:15 10/29/17 09:14 Insulin Aspart (novoLOG ASPART) SLIDING SCALE G... ACHS SC 09/29/17 11:00 10/29/17 10:59 Pantoprazole Sodium 40 mg/ Dextrose 100 ml @ 20 mls/hr Q5H IV 09/29/17 10:15 10/29/17 10:14 09/29/17 10:29 20 MLS/HR Glucose (Glucose 40% Gel) 15-30 GRAMS 15 GRAMS... UD PRN PO 09/29/17 11:45 10/29/17 11:44 Glucose (Glucose Chew Tab) 4-8 Tablets 4 Tabl... UD PRN PO 09/29/17 11:45 10/29/17 11:44 Dextrose (Dextrose 50% 50ML Syringe) 25-50ML 25ML FOR ... UD PRN IV 09/29/17 11:45 10/29/17 11:44 Glucagon (Glucagon Inj) 1 mg UD PRN IM 09/29/17 11:45 10/29/17 11:44 Carbohydrates (Carbohydrates For Hypoglycemia) 15-30 GRAMS 15 grams if BSG 54-69... UD PRN PO 09/29/17 11:45 10/29/17 11:44 Physical Exam Vital Signs Past 12 Hours Date Time Temp Pulse Resp B/P (MAP) Pulse Ox O2 Delivery O2 Flow Rate FiO2 09/29/17 15:03 36.6 109 22 172/105 (127) 98 Room Air 09/29/17 11:56 36.7 96 18 160/97 97 Room Air 09/29/17 11:05 93 16 152/100 97 09/29/17 10:50 100 18 157/97 97 Room Air 09/29/17 09:30 91 16 148/96 99 Room Air 09/29/17 09:00 86 16 144/90 98 Room Air 09/29/17 08:19 77 16 154/99 99 Room Air 09/29/17 07:40 92 16 175/117 97 09/29/17 07:20 90 09/29/17 06:31 91 16 165/109 96 09/29/17 06:16 105 21 198/108 100 09/29/17 05:36 121 13 99 09/29/17 05:31 121 14 191/124 100 09/29/17 05:16 118 14 194/122 99 09/29/17 05:01 121 18 194/114 100 09/29/17 04:56 196/114 09/29/17 04:47 188/119 09/29/17 04:46 110 11 100 09/29/17 04:34 189/109 09/29/17 04:31 123 10 173/107 99 09/29/17 04:16 129 21 99 09/29/17 04:01 127 20 100 09/29/17 03:57 138 09/29/17 03:46 150 31 106/89 100 09/29/17 03:34 127/81 09/29/17 03:33 152 09/29/17 03:31 155 20 100 09/29/17 03:20 36.4 156 20 96 Room Air The patient is arousable. He will attempt answer some questions. HEENT: Extraocular movements are intact. The sclerae are anicteric. Neck: Patient's neck is supple. He has palpable carotid pulses bilaterally without bruits on auscultation. There is no evidence of jugular venous distention. The thyroid is not enlarged. Lungs: Clear to auscultation bilaterally. He has good air movement without use of accessory muscles. No rales wheezes or rhonchi. Cardiac: Heart demonstrates a regular rate and rhythm. Normal S1 and S2. No murmurs on examination. Pulses: The patient has palpable radial pulses bilaterally that are equal in intensity Extremities: There was no evidence of hypoperfusion. There is no cyanosis or clubbing. There is no edema. He had a bandage right forearm Skin: I did not appreciate any rashes on examination today. Data Laboratory Results: Last 24 Hours Test 09/29/17 03:42 09/29/17 04:40 09/29/17 05:22 09/29/17 06:49 White Blood Count 15.25 K/uL Red Blood Count 4.82 M/uL Hemoglobin 18.0 g/dL Hematocrit 48.6 % Mean Corpuscular Volume 100.8 fL Mean Corpuscular Hemoglobin 37.3 pg Mean Corpuscular Hemoglobin Concent 37.0 g/dl Platelet Count 248 K/uL Mean Platelet Volume 10.9 fL Neutrophils (%) (Auto) 79.9 % Lymphocytes (%) (Auto) 9.8 % Monocytes (%) (Auto) 9.8 % Eosinophils (%) (Auto) 0.0 % Basophils (%) (Auto) 0.1 % Neutrophils # (Auto) 12.19 K/uL Lymphocytes # (Auto) 1.50 K/uL Monocytes # (Auto) 1.49 K/uL Eosinophils # (Auto) 0.00 K/uL Basophils # (Auto) 0.01 K/uL RDW Standard Deviation 49.0 fL RDW Coefficient of Variation 13.2 % Immature Granulocyte % (Auto) 0.4 % Immature Granulocyte # (Auto) 0.06 K/uL Prothrombin Time 10.3 SECONDS Prothromb Time International Ratio 1.0 Activated Partial Thromboplast Time 22.5 SECONDS Partial Thromboplastin Ratio 0.9 Sodium Level 134 mmol/L Potassium Level 3.7 mmol/L Chloride Level 99 mmol/L Carbon Dioxide Level 13 mmol/L Anion Gap 22.0 mmol/L 21.0 mmol/L Blood Urea Nitrogen 17 mg/dl Creatinine 1.57 mg/dl Estimated GFR () 57.9 Estimated GFR (Non- 49.9 BUN/Creatinine Ratio 10.9 Random Glucose 169 mg/dl Calcium Level 10.4 mg/dl Phosphorus Level 2.5 mg/dl Magnesium Level 1.8 mg/dl Total Bilirubin 1.6 mg/dl Aspartate Amino Transf (AST/SGOT) 21 U/L Alanine Aminotransferase (ALT/SGPT) 20 U/L Alkaline Phosphatase 60 U/L Troponin I 0.029 ng/ml Total Protein 7.3 gm/dl Albumin 4.2 gm/dl Globulin 3.1 gm/dl Albumin/Globulin Ratio 1.4 Lipase 138 U/L Thyroid Stimulating Hormone (TSH) 0.593 uIu/ml Chemistry Specimen Hemolysis Ethyl Alcohol mg/dL < 3.0 mg/dl Gastric Fluid pH 2 Gastric Fluid Occult Blood POS Urine Opiates Screen NEG Urine Methadone, Qualitative NEG Urine Barbiturates NEG Urine Phencyclidine (PCP) Level NEG Ur Amphetamine/Methamphetamine NEG MDMA (Ecstasy) Screen NEG Urine Benzodiazepines Screen NEG Urine Cocaine Metabolite NEG Urine Marijuana (THC) POS Bedside Hemoglobin 12.9 g/dl Bedside Hematocrit 38 % Bedside Sodium 137 mEq/L Bedside Potassium 3.1 mEq/L Bedside Chloride 102 mEq/L Bedside Total CO2 18 mEq/l Bedside Blood Urea Nitrogen 17 mg/dl Bedside Creatinine 0.9 mg/dl Bedside Glucose (other) 182 mg/dl Bedside Ionized Calcium (Sarah) 1.20 mmol/l Test 09/29/17 11:28 09/29/17 14:15 Bedside Glucose 160 mg/dl Hemoglobin 14.1 g/dL Hematocrit 38.0 % Vitamin B12 Level 393 pg/mL Folate 3.04 ng/mL Imaging: CT thorax demonstrated possible esophagitis. Left ventricular thrombus. EKG: Sinus tachycardia with evidence of old anterior and inferior infarcts Telemetry reviewed: Sinus tachycardia and sinus rhythm Echocardiogram: Echocardiogram demonstrated mildly reduced LV systolic function with regional wall motion abnormalities. Patient did have a large apical thrombus of unclear chronicity. Assessment & Plan 1. Left ventricular thrombus: Patient does have left ventricular thrombus. He has a history of left ventricular thrombus although quite remote. A review of his prior echocardiographic images did not reveal an obvious thrombus in 2017. Therefore, this likely developed in the interim. Curiously, his overall LV function appears improved. A review of his record suggests that his LV dysfunction has waxed and waned in severity over the years. Given the on chronicity of the thrombus it would seem reasonable to recommend anticoagulation. It is unclear if this is appropriate for several reasons including the patient's recent unwillingness to take medications. There is also appears to be some concern regarding gastrointestinal bleeding. In the event he appears to be a good candidate for anticoagulation is willing to take the therapy, warfarin may be the best option for period of 3 months. 2. Left ventricular systolic failure: Patient does have an element of reduced LV systolic function. At this point he appears to be slightly hypovolemic rather than hypervolemic. No evidence of decompensation. While he ideally he would be on a standard medical regimen for cardiomyopathy to include beta- owen and WILFREDO-inhibitor, he has since discontinued medications of that nature. Currently concentrating exclusively on palliation.
[2017-09-29] MEDS ORDERED: BACLOFEN 10 MG TAB PO PRN (15:30)
[2017-09-29 15:39] VITALS: Ht 175.3 cm; Wt 64.1 kg
[2017-09-29] MEDS ORDERED: BACLOFEN 10 MG TAB PO ONE (15:45)
--- NOTE | 2017-09-29 15:49 | Psychiatric Consultation ---
Consultation Date of Consultation Sep 29, 2017. Identifying Data 51-year-old admitted to the medical floor following self-inflicted laceration to his right forearm, reported to be in a suicide attempt. Other medical concerns including heme positive stool and abnormal emesis led to decision to admit patient for additional testing. Psychiatric consult requested to evaluate depression and SI. Chief Complaint Pt has history of expressive and receptive aphasia, briefly able to communicate via written "yes-or-no" questions. History of Present Illness Jim Gardner (Rick) is a 51-year-old male with a PMH of aphasia from stroke and stroke, cardiomyopathy, CVA, anxiety, depression, diabetic hemiparesis, left ventricular mural thrombosis, and seizure history. Pt was admitted after being brought to the ED following self-inflicted laceration to his right forearm. Pt was admitted for further investigation of upper GI bleed and apical thrombosis. Psychiatric consult requested to assess SI and depression. Pt's case reviewed with psychiatric nurse liaison and patient was jointly seen to evaluate the above concerns. Pt has expressive and receptive aphasia, and direct communication with the patient was made possible via written "yes-or-no" questions. The remained of the history is received from the patient's caregiver , Don, and the patient's mother. Pt provided verbal permission for this communication to occur. According to direct conversation with the patient, he does admit that his mood is lower than normal, but is unsure of the duration of his worsening mood. He does admit to thoughts of hurting himself and not wanting to be alive. Pt denies taking any psychotropic medications currently, although he does report interest in starting something to improve his mood. Pt is not sure of previous medications that have been beneficial for him, but is agreeable to allowing us to contact providers for more thorough history of past medication trials. Pt's caregiver, Don, was willing to provide additional history to this provider with patient's permission. He states the patient went through a period of lower mood, being less active, and appearing more confused from November 2015 - May 2015. He states he had been making comments during that time about 'I'm already' - apparently frustrated with poor cognition, inability to adequately express himself, and irritation about physical limitations. Don states the patient was started with hospice care from April to July of 2016. In August 2016, the patient stopped taking his medications due to low mood. Don states there were also changes to his pain medications around that time which likely affected mood and level of irritation as well. Pt is reported to have stopped eating two weeks ago and again has shown little interest in getting out of bed. Don is not aware of the exact events leading to the patient's episode of SIB, but reports they have been arguing recently and patient has been increasingly frustrated with his condition. Don did not witness the cutting, but states the patient called for him after the incident occurred, requesting that his caregiver call an ambulance. Don states, "he asked for that, he got my attention, he obviously wanted treatment." Don states patient is known to become irritated "when he can't find the word he is looking for - he gets angry and starts yelling." Pt's mother reports concern that the patient is too hard on his caregiver and that it may not be the best arrangement. Pt, his caregiver, and his mother are aware of the various medical tests being completed and are agreeable to holding off on starting psychotropic medication until he is adequately stabilized medically. We discussed need to evaluate whether or not inpatient mental health treatment is recommended, but all parties are agreeable to reassessing once we have a better idea of discharge time and disposition. Past Psychiatric History Current OP Treatment: no current treatment Prior OP Treatment: psychiatrist (previously seen at [facility]) Prior Psych Hospitalizations: [facility] (December 2012, August 2012, and two admissions in 2010) Suicide Attempts: Yes (several previous attempts by cutting and one OD attempt) Past Medication Trials Per medical records and Don's account: - Wellbutrin - increased anger - Lexapro - caused hopelessness - Ativan - Prozac - d/c'd 6 months prior to current admission - Seroquel 300mg - "took edge off" per Don Past Medical/Surgical History History of Concussion/Seizure: Yes (1) Hypertension (2) GI bleed (3) Laceration of right forearm (4) Cardiomyopathy (5) Diabetes mellitus (6) Hemiparesis (7) Ischemic stroke (8) Status epilepticus, generalized convulsive (9) Aphasia Allergies Allergies: Coded Allergies: Codeine (Verified Allergy, Mild, HIVES, 12/08/15) Home Medications Scheduled PRN Methocarbamol (Robaxin), 1-2 TAB PO TID PRN for MUSCLE SPASMS Tramadol HCl (Tramadol HCl), 50 MG PO Q6 PRN for Pain Family History Patient reports no known family medical history. Alcohol Use Alcohol Use In Past 12 Months: Yes Smoking Use Smoking Status: Current Every Day Smoker Personal History Lives in: [place], [place] Work History: Unemployed Relationship History: never Review of Systems Unable to participate in extensive ROS due to current condition and history of aphasia Examination Vital Signs Vital Signs Past 12 Hours Date Time Temp Pulse Resp B/P (MAP) Pulse Ox O2 Delivery O2 Flow Rate FiO2 09/29/17 15:03 36.6 109 22 172/105 (127) 98 Room Air 09/29/17 11:56 36.7 96 18 160/97 97 Room Air 09/29/17 11:05 93 16 152/100 97 09/29/17 10:50 100 18 157/97 97 Room Air 09/29/17 09:30 91 16 148/96 99 Room Air 09/29/17 09:00 86 16 144/90 98 Room Air 09/29/17 08:19 77 16 154/99 99 Room Air 09/29/17 07:40 92 16 175/117 97 09/29/17 07:20 90 09/29/17 06:31 91 16 165/109 96 09/29/17 06:16 105 21 198/108 100 09/29/17 05:36 121 13 99 09/29/17 05:31 121 14 191/124 100 09/29/17 05:16 118 14 194/122 99 09/29/17 05:01 121 18 194/114 100 09/29/17 04:56 196/114 09/29/17 04:47 188/119 09/29/17 04:46 110 11 100 09/29/17 04:34 189/109 09/29/17 04:31 123 10 173/107 99 09/29/17 04:16 129 21 99 09/29/17 04:01 127 20 100 09/29/17 03:57 138 Laboratory Results Last 24 Hours Test 09/29/17 03:42 09/29/17 04:40 09/29/17 05:22 09/29/17 06:49 White Blood Count 15.25 K/uL Red Blood Count 4.82 M/uL Hemoglobin 18.0 g/dL Hematocrit 48.6 % Mean Corpuscular Volume 100.8 fL Mean Corpuscular Hemoglobin 37.3 pg Mean Corpuscular Hemoglobin Concent 37.0 g/dl Platelet Count 248 K/uL Mean Platelet Volume 10.9 fL Neutrophils (%) (Auto) 79.9 % Lymphocytes (%) (Auto) 9.8 % Monocytes (%) (Auto) 9.8 % Eosinophils (%) (Auto) 0.0 % Basophils (%) (Auto) 0.1 % Neutrophils # (Auto) 12.19 K/uL Lymphocytes # (Auto) 1.50 K/uL Monocytes # (Auto) 1.49 K/uL Eosinophils # (Auto) 0.00 K/uL Basophils # (Auto) 0.01 K/uL RDW Standard Deviation 49.0 fL RDW Coefficient of Variation 13.2 % Immature Granulocyte % (Auto) 0.4 % Immature Granulocyte # (Auto) 0.06 K/uL Prothrombin Time 10.3 SECONDS Prothromb Time International Ratio 1.0 Activated Partial Thromboplast Time 22.5 SECONDS Partial Thromboplastin Ratio 0.9 Sodium Level 134 mmol/L Potassium Level 3.7 mmol/L Chloride Level 99 mmol/L Carbon Dioxide Level 13 mmol/L Anion Gap 22.0 mmol/L 21.0 mmol/L Blood Urea Nitrogen 17 mg/dl Creatinine 1.57 mg/dl Estimated GFR () 57.9 Estimated GFR (Non- 49.9 BUN/Creatinine Ratio 10.9 Random Glucose 169 mg/dl Calcium Level 10.4 mg/dl Phosphorus Level 2.5 mg/dl Magnesium Level 1.8 mg/dl Total Bilirubin 1.6 mg/dl Aspartate Amino Transf (AST/SGOT) 21 U/L Alanine Aminotransferase (ALT/SGPT) 20 U/L Alkaline Phosphatase 60 U/L Troponin I 0.029 ng/ml Total Protein 7.3 gm/dl Albumin 4.2 gm/dl Globulin 3.1 gm/dl Albumin/Globulin Ratio 1.4 Lipase 138 U/L Thyroid Stimulating Hormone (TSH) 0.593 uIu/ml Chemistry Specimen Hemolysis Ethyl Alcohol mg/dL < 3.0 mg/dl Gastric Fluid pH 2 Gastric Fluid Occult Blood POS Urine Opiates Screen NEG Urine Methadone, Qualitative NEG Urine Barbiturates NEG Urine Phencyclidine (PCP) Level NEG Ur Amphetamine/Methamphetamine NEG MDMA (Ecstasy) Screen NEG Urine Benzodiazepines Screen NEG Urine Cocaine Metabolite NEG Urine Marijuana (THC) POS Bedside Hemoglobin 12.9 g/dl Bedside Hematocrit 38 % Bedside Sodium 137 mEq/L Bedside Potassium 3.1 mEq/L Bedside Chloride 102 mEq/L Bedside Total CO2 18 mEq/l Bedside Blood Urea Nitrogen 17 mg/dl Bedside Creatinine 0.9 mg/dl Bedside Glucose (other) 182 mg/dl Bedside Ionized Calcium (Sarah) 1.20 mmol/l Test 09/29/17 11:28 09/29/17 14:15 09/29/17 15:05 Bedside Glucose 160 mg/dl Hemoglobin 14.1 g/dL Hematocrit 38.0 % Vitamin B12 Level 393 pg/mL Folate 3.04 ng/mL Urine Color YELLOW Urine Appearance CLEAR Urine pH 5.5 Urine Specific Lang[place] > 1.045 Urine Protein NEG Urine Glucose (UA) NEG Urine Ketones 2+ Urine Occult Blood NEG Urine Nitrite NEG Urine Bilirubin NEG Urine Urobilinogen NEG Urine Leukocyte Esterase NEG Mental Examination During interview pt is: alert and oriented, cooperative Appearance: appropriately dressed (in hospital gown), appropriately groomed Motor behavior is: other (hemiparalysis of right side, left sided weakness) Speech: other (expressive and receptive aphasia, communication limited ) Affect: flat Mood is: other (admits it is lower than normal) Thought process: other (difficult to assess due to aphasia, appears to be clear and goal directed) Thought content: other (difficult to assess due to aphasia) Suicidal thought are: present (admits to thoughts of wanting to harm himself and not wanting to be alive) Cognition: other (difficult to adequately gauge level of cognition due to aphasia) Intelligence estimated to be: consistent with level of education (appears lower due to medical condition and aphasia) Insight: limited Judgement: limited Impression / Recommendations Impression Jim Gardner (Rick) is a 51-year-old male known to our unit from previous admissions following suicide attempts. Pt has had a complex medical history that has resulted in hemiparalysis and expressive/receptive aphasia - ultimately affecting mood and outlook on life. Pt is a DNR and reports current SI with thoughts of harming himself. Pt does not express intent to harm himself while in the hospital and has been cooperative with inpatient care, but would recommend reassessing the status of SI prior to discharge to determine if inpatient mental health treatment would be beneficial. Medical complexity is too high at this time for admission to inpatient unit. Due to concern for upper GI bleed and ongoing medical work-up, it may not be ideal to immediately start psychotropic medications. In the meantime, will attempt to gather history from other providers to determine favorable medication regimen. If patient remains agreeable could being medications when felt appropriate by primary medical team. Reports suggest control of mood and behaviors related to his CVA with Prozac and Seroquel most recently. Risk Factors Assessment Male: Yes : Yes /single/: Yes Health problems: Yes Mental Health Diagnoses: Yes Substance use disorders: Yes Previous attempt: Yes Previous attempt;highly lethal: Yes Previous psychiatric stay: Yes Hopelessness: Yes Smoker: Yes Protective Factors Assessment : No Responsible for young children: No Employed: No Stable relationships: Yes Supportive family: Yes Recommendations (1) Depression 09/29 - Recommend holding start of psychotropic medication initiation until appropriate per primary medical team - Could consider restart of Prozac and/or Seroquel as these medications were reportedly helpful most recently - Will attempt to gather more information from other providers - Reassess need for inpatient mental health treatment prior to discharge - Appreciate the opportunity to participate in the care of this patient Dr. Nesha Torres has personally been involved in the review of the above case and development of recommendations.
[2017-09-29] MEDS ORDERED: DICLOFENAC SOD 1% GEL 100 GM TUBE EXT PRN (16:00)
--- NOTE | 2017-09-29 16:24 | Palliative Care Consultation ---
Consultation Date of Consultation: Sep 29, 2017. Requesting Physician: Dr Preston Attending Physician: Dr Preston Reason for Consultation: Patient is established in the palliative clear clinic for pain management History of Present Illness Patient is a 51-year-old male with a past medical history of CVA with resultant right-sided hemiparesis, left-sided weakness, expressive and receptive aphasia who was admitted earlier today for having self-inflicted cuts on his upper extremity. Patient has been followed in palliative clinic since February, had been doing fairly well at that time, pain controlled with Robaxin and tramadol as needed,. On second or third follow-up visit a POLST form was filled out as patient wished to be a DNR and wanted comfort measures only. Patient was admitted to hospice care at home. Approximately 2 weeks ago I received a call from his caregiver, Don, reporting that patient was refusing all his meds as well as refusing food. Patient was at home under hospice on comfort care. Patient has a history of depression with refusing his medications this probably attributed to his cutting earlier today. Patient has receptive and expressive aphasia, he is able to communicate using a white board. Patient suffered a CVA approximately 10 years ago. Patient has always been in fairly good spirits when seen in clinic. Patient caregiver have been quite open regarding his use of alcohol and marijuana, he did not use any other illicit drugs. His caregiver reports that along with stopping his meds and eating he also stopped his alcohol. Patient was also using Voltaren gel for the right shoulder which was very effective. His caregiver reports a prior episode of vomiting in the past when he was using as needed oxygen for pain - he vomited approximately 12 hours after he ate -in the vomitus was undigested food. Patient has not had any vomiting or problems with constipation while taking tramadol. Patient has been well cared for as far as I have known him by his caregiver, Don. Patient now reports pain that is located in the chest and upper abdomen which has been ongoing for a few days. CT scan showed evidence of enteritis, his white count is elevated at 15.25. 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, seizure disorder, depression, anxiety Family History Noncontributory Social History Smoking Status: Current Every Day Smoker History of Alcohol Use: No Drug Use: marijuana Marital Status: single Housing Status: lives with friends Occupation Status: unemployed, disabled Review of Systems Constitutional: No fever, No chills Eyes: No worsening of vision ENT: No hearing loss Respiratory: No cough Cardiac: + chest pain Abdomen: + pain, + nausea, + vomiting Musculoskeletal: + joint pain (Right shoulder and generalized pain due to spasticity) Neurologic: + paralysis Psychiatric: + depression symptoms Allergies Coded Allergies: Codeine (Verified Allergy, Mild, HIVES, 12/08/15) Medications Current Inpatient Medications Medications (Trade) Dose Ordered Sig/Jerson Route Start Time Stop Time Status Last Admin Dose Admin Ioversol (Optiray 320) 125 ml UD PRN IV 09/29/17 05:30 10/03/17 05:29 Potassium Chloride/Sodium Chloride 1,000 ml @ 80 mls/hr [id number] IV 09/29/17 12:00 10/29/17 08:25 09/29/17 12:32 80 MLS/HR Acetaminophen (Tylenol Tab) 650 mg Q4H PRN PO 09/29/17 08:30 10/29/17 08:29 Al Hydrox/Mg Hydrox/Simethicone (Maalox Max Susp) 15 ml Q4H PRN PO 09/29/17 08:30 10/29/17 08:29 Magnesium Hydroxide (Milk Of Magnesia Susp) 30 ml Q12H PRN PO 09/29/17 08:30 10/29/17 08:29 Zolpidem Tartrate (Ambien Tab) 5 mg HSZ PRN PO 09/29/17 08:30 10/29/17 08:29 Ondansetron HCl (Zofran Inj) 4 mg Q6H PRN IV 09/29/17 08:30 10/29/17 08:29 09/29/17 15:03 4 MG Polyethylene (Miralax Powder Packet) 17 gm DAILY PRN PO 09/29/17 08:30 10/29/17 08:29 Morphine Sulfate (MoRPHine SULFATE INJ) 2 mg Q6 PRN IV 09/29/17 08:30 10/13/17 08:29 09/29/17 15:03 2 MG Hydralazine HCl (HydrALAZINE INJ) 10 mg Q6 PRN IV. 09/29/17 09:15 10/29/17 09:14 Insulin Aspart (novoLOG ASPART) SLIDING SCALE G... ACHS SC 09/29/17 11:00 10/29/17 10:59 Pantoprazole Sodium 40 mg/ Dextrose 100 ml @ 20 mls/hr Q5H IV 09/29/17 10:15 10/29/17 10:14 09/29/17 15:21 20 MLS/HR Glucose (Glucose 40% Gel) 15-30 GRAMS 15 GRAMS... UD PRN PO 09/29/17 11:45 10/29/17 11:44 Glucose (Glucose Chew Tab) 4-8 Tablets 4 Tabl... UD PRN PO 09/29/17 11:45 10/29/17 11:44 Dextrose (Dextrose 50% 50ML Syringe) 25-50ML 25ML FOR ... UD PRN IV 09/29/17 11:45 10/29/17 11:44 Glucagon (Glucagon Inj) 1 mg UD PRN IM 09/29/17 11:45 10/29/17 11:44 Carbohydrates (Carbohydrates For Hypoglycemia) 15-30 GRAMS 15 grams if BSG 54-69... UD PRN PO 09/29/17 11:45 10/29/17 11:44 Baclofen (Lioresal Tab) 10 mg BID PRN PO 09/29/17 15:30 10/29/17 15:29 Baclofen (Lioresal Tab) 10 mg 1545 ONCE PO 09/29/17 15:45 09/29/17 15:46 Physical Exam Date Time Temp Pulse Resp B/P (MAP) Pulse Ox O2 Delivery O2 Flow Rate FiO2 09/29/17 15:03 36.6 109 22 172/105 (127) 98 Room Air 09/29/17 11:56 36.7 96 18 160/97 97 Room Air 09/29/17 11:05 93 16 152/100 97 09/29/17 10:50 100 18 157/97 97 Room Air 09/29/17 09:30 91 16 148/96 99 Room Air 09/29/17 09:00 86 16 144/90 98 Room Air 09/29/17 08:19 77 16 154/99 99 Room Air 09/29/17 07:40 92 16 175/117 97 09/29/17 07:20 90 09/29/17 06:31 91 16 165/109 96 09/29/17 06:16 105 21 198/108 100 09/29/17 05:36 121 13 99 09/29/17 05:31 121 14 191/124 100 09/29/17 05:16 118 14 194/122 99 09/29/17 05:01 121 18 194/114 100 09/29/17 04:56 196/114 09/29/17 04:47 188/119 09/29/17 04:46 110 11 100 09/29/17 04:34 189/109 09/29/17 04:31 123 10 173/107 99 09/29/17 04:16 129 21 99 09/29/17 04:01 127 20 100 09/29/17 03:57 138 09/29/17 03:46 150 31 106/89 100 09/29/17 03:34 127/81 09/29/17 03:33 152 09/29/17 03:31 155 20 100 09/29/17 03:20 36.4 156 20 96 Room Air General Appearance: no apparent distress ENT: hearing grossly normal Respiratory: lungs clear Cardiovascular: regular rate, rhythm Abdomen: soft, + tenderness Musculoskeletal: pertinent finding (Right upper extremity flaccid, increased tone on left) Neurologic/Psychiatric: + aphasia (Receptive and expressivecommunicates using a white board) Skin: normal color Laboratory Results Last 24 Hours Test 09/29/17 03:42 09/29/17 04:40 09/29/17 05:22 09/29/17 06:49 White Blood Count 15.25 K/uL Red Blood Count 4.82 M/uL Hemoglobin 18.0 g/dL Hematocrit 48.6 % Mean Corpuscular Volume 100.8 fL Mean Corpuscular Hemoglobin 37.3 pg Mean Corpuscular Hemoglobin Concent 37.0 g/dl Platelet Count 248 K/uL Mean Platelet Volume 10.9 fL Neutrophils (%) (Auto) 79.9 % Lymphocytes (%) (Auto) 9.8 % Monocytes (%) (Auto) 9.8 % Eosinophils (%) (Auto) 0.0 % Basophils (%) (Auto) 0.1 % Neutrophils # (Auto) 12.19 K/uL Lymphocytes # (Auto) 1.50 K/uL Monocytes # (Auto) 1.49 K/uL Eosinophils # (Auto) 0.00 K/uL Basophils # (Auto) 0.01 K/uL RDW Standard Deviation 49.0 fL RDW Coefficient of Variation 13.2 % Immature Granulocyte % (Auto) 0.4 % Immature Granulocyte # (Auto) 0.06 K/uL Prothrombin Time 10.3 SECONDS Prothromb Time International Ratio 1.0 Activated Partial Thromboplast Time 22.5 SECONDS Partial Thromboplastin Ratio 0.9 Sodium Level 134 mmol/L Potassium Level 3.7 mmol/L Chloride Level 99 mmol/L Carbon Dioxide Level 13 mmol/L Anion Gap 22.0 mmol/L 21.0 mmol/L Blood Urea Nitrogen 17 mg/dl Creatinine 1.57 mg/dl Estimated GFR () 57.9 Estimated GFR (Non- 49.9 BUN/Creatinine Ratio 10.9 Random Glucose 169 mg/dl Calcium Level 10.4 mg/dl Phosphorus Level 2.5 mg/dl Magnesium Level 1.8 mg/dl Total Bilirubin 1.6 mg/dl Aspartate Amino Transf (AST/SGOT) 21 U/L Alanine Aminotransferase (ALT/SGPT) 20 U/L Alkaline Phosphatase 60 U/L Troponin I 0.029 ng/ml Total Protein 7.3 gm/dl Albumin 4.2 gm/dl Globulin 3.1 gm/dl Albumin/Globulin Ratio 1.4 Lipase 138 U/L Thyroid Stimulating Hormone (TSH) 0.593 uIu/ml Chemistry Specimen Hemolysis Ethyl Alcohol mg/dL < 3.0 mg/dl Gastric Fluid pH 2 Gastric Fluid Occult Blood POS Urine Opiates Screen NEG Urine Methadone, Qualitative NEG Urine Barbiturates NEG Urine Phencyclidine (PCP) Level NEG Ur Amphetamine/Methamphetamine NEG MDMA (Ecstasy) Screen NEG Urine Benzodiazepines Screen NEG Urine Cocaine Metabolite NEG Urine Marijuana (THC) POS Bedside Hemoglobin 12.9 g/dl Bedside Hematocrit 38 % Bedside Sodium 137 mEq/L Bedside Potassium 3.1 mEq/L Bedside Chloride 102 mEq/L Bedside Total CO2 18 mEq/l Bedside Blood Urea Nitrogen 17 mg/dl Bedside Creatinine 0.9 mg/dl Bedside Glucose (other) 182 mg/dl Bedside Ionized Calcium (Sarah) 1.20 mmol/l Test 09/29/17 11:28 09/29/17 14:15 09/29/17 15:05 Bedside Glucose 160 mg/dl Hemoglobin 14.1 g/dL Hematocrit 38.0 % Vitamin B12 Level 393 pg/mL Folate 3.04 ng/mL Urine Color YELLOW Urine Appearance CLEAR Urine pH 5.5 Urine Specific [place] > 1.045 Urine Protein NEG Urine Glucose (UA) NEG Urine Ketones 2+ Urine Occult Blood NEG Urine Nitrite NEG Urine Bilirubin NEG Urine Urobilinogen NEG Urine Leukocyte Esterase NEG Assessment & Plan Palliative Performance Scale: 40 % - Suicide attempt - patient off his antidepressants for 2 weeks/his right forearm. -Chronic pain-have been well controlled on Robaxin, baclofen, as needed tramadol and Voltaren gel to the right shoulder -Abdominal painplaced on a PPI, CT scan showed enteritis but no bowel obstruction, as needed morphine for pain-further plan per hospitalist -History of CVA-patient with right sided hemiparesis, left-sided weakness, receptive and expressive aphasia-continue baclofen -Diabetes-insulin for coverage Counseling and Coordination Total time spent 70 minutes with greater than 50% of the time spent at bedside discussing patient's current status as well as plan of managing patient's abdominal pain. Plan is to return home with his caregiver
[2017-09-29] MEDS ORDERED: NURSING VERBAL MED ORDER ONE (17:00)
[2017-09-29] MEDS: INSULIN ASPART 100 UNITS/ML 3 ML PEN SC SCH (18:00)
--- NOTE | 2017-09-29 18:38 | GASTROINTESTINAL CONSULTATION ---
DATE OF CONSULTATION: 09/29/2017 REASON FOR EVALUATION: Hematemesis. HISTORY OF PRESENT ILLNESS: The patient is a 51-year-old with anxiety, depression, and a history of stroke. Patient also has other medical problems and became depressed and cut his right forearm intentionally and was brought to the Emergency Room where this laceration was treated. Patient also states that he has had some epigastric discomfort, and for the past couple of days, he has been vomiting dark liquid which on Hemoccult test was positive in the Emergency Room. His hemoglobin on admission was 18 but has dropped to 14 with hydration, and GI consultation has been obtained. PAST MEDICAL HISTORY: Remarkable for anxiety, depression, stroke with aphasia, cardiomyopathy, diabetic hemiparesis, left ventricular mural thrombus, seizure disorder, and self injury. MEDICATIONS: Robaxin and tramadol. ALLERGIES: CODEINE. FAMILY HISTORY: Unknown. SOCIAL HISTORY: The patient smokes daily with occasional alcohol use, occasional marijuana use. Lives with his significant male other. He is unemployed and has [id number] caregiver. REVIEW OF SYSTEMS: Unreliable. PHYSICAL EXAMINATION: GENERAL: Patient is lying in bed, with a long scruffy cedeño. VITAL SIGNS: Normal at this time. GASTROINTESTINAL: He does report that he is having some central abdominal pain. Abdomen shows no scars. There is actually some tenderness in the right-sided epigastric area to palpation. No mass or rebound. Liver and spleen are not enlarged. IMPRESSION: Patient had hematemesis with a drop in his hemoglobin, not far enough to require transfusion. I suspect that he may have had a Caty-Villalobos tear. He is currently getting IV Protonix at this point. Patient will be monitored over the weekend, and if he improves, may be no further intervention will be necessary, but if his hemoglobin continues to drop or he has further bleeding, it may be necessary to perform an EGD. Dr. Verdin will be covering over the weekend.
[2017-09-29 19:22] VITALS: BP 153/101; PULSE 119; TEMP 36.6; O2SAT 99
[2017-09-29 22:46] LABS: HEMATOCRIT 36.3 % (42-52); HEMOGLOBIN 13.4 g/dL (14.0-18.0)
[2017-09-29 23:55] VITALS: BP 166/99; PULSE 106; TEMP 36.5; O2SAT 95
[2017-09-30] MEDS: PANTOprazole INJ 40 MG in DEXTROSE 5% 100ML IV SCH ×5 (01:23→22:04)
[2017-09-30] MEDS: NSS + 20MEQ KCL 1000ML 1,000 ML IV SCH ×2 (01:23→16:16)
[2017-09-30 03:50] VITALS: BP 175/90; PULSE 109; TEMP 37; O2SAT 96
[2017-09-30 06:11] LABS: BASO % 0.1 %; BASO ABS # 0.01 K/uL (0-0.2); HEMATOCRIT 35.8 % (42-52); HEMOGLOBIN 13.3 g/dL (14.0-18.0); IG# 0.04 K/uL (0.00-0.02); LYMPH % 18.7 %; LYMPH ABS # 2.06 K/uL (1.2-3.4); MEAN CELL VOLUME 98.6 fL (80-100); MEAN CORPUSCULAR HEMOGLOBIN 36.6 pg (25-34); MEAN CORPUSCULAR HGB CONC 37.2 g/dl (32-36); MEAN PLATELET VOLUME 10.2 fL (7.4-10.4); MONO % 12.4 %; MONO ABS # 1.37 K/uL (0.11-0.59); NEUT % 68.4 %; NEUT ABS # 7.53 K/uL (1.4-6.5); PLATELET COUNT 176 K/uL (130-400); RED CELL DISTRIBUTION WIDTH CV 13.1 % (11.5-14.5); RED CELL DISTRIBUTION WIDTH SD 47.6 fL (36.4-46.3); WHITE BLOOD COUNT 11.01 K/uL (4.8-10.8)
[2017-09-30] MEDS: INSULIN ASPART 100 UNITS/ML 3 ML PEN SC SCH ×5 (06:38→21:00)
[2017-09-30 06:47] LABS: CALCIUM 8.9 mg/dl (8.5-10.1); CREATININE 0.93 mg/dl (0.60-1.40); POTASSIUM 3.1 mmol/L (3.5-5.1)
[2017-09-30 06:56] VITALS: BP 155/98; PULSE 101; TEMP 36.5; O2SAT 96
[2017-09-30 06:57] LABS: PHOSPHORUS 1.2 mg/dl (2.5-4.9)
[2017-09-30] MEDS ORDERED: POTASSIUM PHOS 3 MMOL/1 ML INFUSION IV STA (07:50)
[2017-09-30] MEDS ORDERED: POTASSIUM CHLORIDE 20 MEQ TABCR PO STA (07:50)
[2017-09-30] MEDS ORDERED: MAGNESIUM SULFATE 1GM / D5W 100 ML IV STA (08:00)
[2017-09-30] MEDS ORDERED: POTASSIUM PHOSPHATE INJ 40 MMOL in SODIUM CHLORIDE 0.9% 1000ML 1,000 ML IV ONE (08:00)
[2017-09-30] MEDS: MAGNESIUM OXIDE 400 MG TAB PO SCH ×2 (09:17→22:04)
[2017-09-30] MEDS: POTASSIUM CHLR 10 MEQ / WTR 100 ML IV SCH ×2 (09:19→10:00)
[2017-09-30] MEDS: MoRPHine SULFATE 2 MG/ML CARP IV PRN ×2 (09:28→18:26)
[2017-09-30 12:01] VITALS: BP 166/100; PULSE 87; TEMP 36.9; O2SAT 96
[2017-09-30] MEDS ORDERED: ALUMINUM/MAGNESIUM/SIMETH (MAALOX MAX) 30 ML UDC PO STA (12:08)
[2017-09-30] MEDS ORDERED: HydrALAZINE HCL 20 MG/ML VIAL IV. PRN (12:15)
[2017-09-30] MEDS ORDERED: FLUOXETINE HCL 10 MG CAP PO ONE (12:15)
--- NOTE | 2017-09-30 13:18 | GASTROENTEROLOGY PROGRESS NOTE ---
DATE: 09/30/2017 SUBJECTIVE: Chart reviewed, patient examined. Case discussed with Dr. Preston. Patient without reports of nausea, vomiting, hematemesis, coffee-ground emesis, melena or bright red blood per rectum. There is no abdominal pain. Communicated through a written board in order to for the patient to comprehend and respond. LABORATORY STUDIES: Today hemoglobin is 13.3 and overall stable. White count is down to 11.0. The serum chemistry, BUN and creatinine are 14 and 0.9. Potassium is low at 3.1, phosphorus is also critically low at 1.2, magnesium at 1.6. Gastroccult was positive on September 29 with a pH of 2. CURRENT MEDICATIONS: INCLUDE FLUOXETINE, HYDRALAZINE, MAG OX, POTASSIUM, INSULIN, DICLOFENAC, BACLOFEN, MORPHINE, ACETAMINOPHEN. PHYSICAL EXAMINATION: Today, VITAL SIGNS: Blood pressure 166/100, respirations 18, heart rate 87, temperature 36.9, and 96% on room air. GENERAL: The patient is awake, alert and oriented x3. HEENT: Sclerae are anicteric, conjunctiva moist. Oral mucosa moist. HEART: Normal S1, S2. LUNGS: Clear to auscultation. ABDOMEN: Soft, nontender, nondistended with positive bowel sounds. EXTREMITIES: Without edema. There are omar in the right surface of the forearm consistent with a laceration repair. IMPRESSION AND PLAN: Patient without episodes of nausea, vomiting or abdominal pain and there are no reports of xavier hematemesis, coffee-ground emesis, melena or bright red blood per rectum. Hemoglobin appears to be stable. At this point, the Gastroccult likely reflects small mucosal tears from the retching and vomiting that he had experienced. Therefore, would maintain patient on pantoprazole and can advance diet as tolerated over the next 24 hours to a regular diet. Would change to pantoprazole 40 mg twice daily, p.r.n. Gaviscon and Maalox or Mylanta may be helpful for intermittent symptoms of nausea and belching. Additionally, simethicone may be helpful to reduce his bloating and discomfort. I would test the stool for H. pylori to exclude this. If there is evidence of dropping hemoglobin or gastrointestinal sources of bleeding, then upper endoscopy and/or colonoscopy could be pursued if the patient is agreeable. Would initially start with an upper endoscopy given the Gastroccult positive status. Avoid NSAIDs if possible. In addition, as needed antiemetics to reduce nausea and vomiting during this process and would monitor and replace as needed, magnesium, phosphorous and other electrolytes. At the present time, will sign off. Please call if we can be of further assistance. If patient ultimately desires GI examination , can arrange for colonoscopy and upper endoscopy if pt/PCP desires. Thank you for allowing me to participate in this patient's care. ALFIE
--- NOTE | 2017-09-30 13:28 | Progress Note ---
Subjective Date of Service: Sep 30, 2017. Subjective Pt evaluation today including: conversation w/ patient, conversation w/ family , physical exam, chart review, lab review, review of studies, conversation w/ automotive internet sales consultant, review of inpatient medication list Patient looks anxious, when asking what is your name, he replies " I cannot talk", actually he speaks well, he has been sipping some water, no fever and chills, There was nonsustained V. tach 40 beats in tele monitor, patient was asymptomatic, patient has a lot of blanching or heaves Problem List Medical Problems: (1) Abdominal pain, left upper quadrant Status: Acute (2) Dehydration Status: Acute (3) Fever Status: Acute (4) GI bleed Status: Acute (5) Hypertension Status: Acute (6) Laceration of right forearm Status: Acute (7) Non-compliance Status: Acute (8) Suicide attempt Status: Acute (9) Tachycardia Status: Acute (10) Voluntary starvation Status: Acute (11) Weakness Status: Acute Review of Systems Constitutional: + weakness, + fatigue Respiratory: No cough, No shortness of breath Cardiac: No chest pain Abdomen: + nausea, No pain Male : No see HPI, No dysuria, No urinary frequency, No incontinence, No nocturia more than once/night, No slowing stream, No hematuria, No sexual dysfunction, No problem reported Neurologic: No see HPI, No memory loss, No paralysis, No weakness, No numbness/ tingling, No vertigo, No balance problems, No problem reported Psychiatric: + depression symptoms, + anxiety, No see HPI, No anhedonism, No insomnia, No substance abuse, No problem reported Endo: No see HPI, No fatigue, No excessive thirst, No excessive urination, No problem reported Objective Vital Signs Date Time Temp Pulse Resp B/P (MAP) Pulse Ox O2 Delivery O2 Flow Rate FiO2 09/30/17 12:03 Room Air 09/30/17 12:01 36.9 87 18 166/100 (122) 96 Room Air 09/30/17 06:56 36.5 101 18 155/98 (117) 96 Room Air 09/30/17 03:50 37.0 109 18 175/90 (118) 96 Room Air 09/29/17 23:55 36.5 106 16 166/99 (121) 95 Room Air 09/29/17 20:00 Room Air 09/29/17 19:22 36.6 119 16 153/101 (118) 99 Room Air 09/29/17 15:03 36.6 109 22 172/105 (127) 98 Room Air Physical Exam General Appearance: WD/WN, no apparent distress, + thin, + pertinent finding ( Frail, looks sick,) Eyes: normal inspection, PERRL, EOMI, sclerae normal ENT: normal ENT inspection, hearing grossly normal, pharynx normal Neck: supple, no adenopathy, thyroid normal, no JVD, no carotid bruits, trachea midline Respiratory/Chest: chest non-tender, normal breath sounds, no respiratory distress, no accessory muscle use, + decreased breath sounds Cardiovascular: regular rate, rhythm, no edema, no gallop, no JVD, no murmur Abdomen: normal bowel sounds, non tender, soft, no organomegaly, no pulsatile mass Extremities: normal range of motion, non-tender, normal inspection, no pedal edema, no calf tenderness, normal capillary refill, pelvis stable 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, no motor/sensory deficits, alert, normal mood/affect, oriented x 3, + motor weakness (Right-sided paralyzed muscle strength is 0 out of 5) Skin: normal color, warm/dry, no rash, + pertinent finding (Right forearm 2 long lacerations has stitches in place, local looks clean and dry, no obvious edema or swelling) Lymphatic: no adenopathy Laboratory Results Last 24 Hours Test 09/29/17 14:15 09/29/17 15:05 09/29/17 18:17 09/29/17 22:16 Hemoglobin 14.1 g/dL 13.4 g/dL Hematocrit 38.0 % 36.3 % Vitamin B12 Level 393 pg/mL Folate 3.04 ng/mL Urine Color YELLOW Urine Appearance CLEAR Urine pH 5.5 Urine Specific [place] > 1.045 Urine Protein NEG Urine Glucose (UA) NEG Urine Ketones 2+ Urine Occult Blood NEG Urine Nitrite NEG Urine Bilirubin NEG Urine Urobilinogen NEG Urine Leukocyte Esterase NEG Bedside Glucose 120 mg/dl Test 09/30/17 00:00 09/30/17 05:56 09/30/17 06:29 Bedside Glucose 113 mg/dl 124 mg/dl White Blood Count 11.01 K/uL Red Blood Count 3.63 M/uL Hemoglobin 13.3 g/dL Hematocrit 35.8 % Mean Corpuscular Volume 98.6 fL Mean Corpuscular Hemoglobin 36.6 pg Mean Corpuscular Hemoglobin Concent 37.2 g/dl Platelet Count 176 K/uL Mean Platelet Volume 10.2 fL Neutrophils (%) (Auto) 68.4 % Lymphocytes (%) (Auto) 18.7 % Monocytes (%) (Auto) 12.4 % Eosinophils (%) (Auto) 0.0 % Basophils (%) (Auto) 0.1 % Neutrophils # (Auto) 7.53 K/uL Lymphocytes # (Auto) 2.06 K/uL Monocytes # (Auto) 1.37 K/uL Eosinophils # (Auto) 0.00 K/uL Basophils # (Auto) 0.01 K/uL RDW Standard Deviation 47.6 fL RDW Coefficient of Variation 13.1 % Immature Granulocyte % (Auto) 0.4 % Immature Granulocyte # (Auto) 0.04 K/uL Sodium Level 139 mmol/L Potassium Level 3.1 mmol/L Chloride Level 106 mmol/L Carbon Dioxide Level 20 mmol/L Anion Gap 13.0 mmol/L Blood Urea Nitrogen 14 mg/dl Creatinine 0.93 mg/dl Est Creatinine Clear Calc Drug Dose 81.1 ml/min Estimated GFR () 109.0 Estimated GFR (Non- 94.1 BUN/Creatinine Ratio 14.9 Random Glucose 120 mg/dl Calcium Level 8.9 mg/dl Phosphorus Level 1.2 mg/dl Magnesium Level 1.6 mg/dl Triglycerides Level 120 mg/dl Cholesterol Level 120 mg/dl HDL Cholesterol 61 mg/dl LDL Cholesterol, Calculated 35 mg/dl VLDL Cholesterol, Calculated 24 mg/dl Cholesterol/HDL Ratio 2.0 Assessment and Plan A 51-year-old white male admitted on September 29, 2017with problems see below: Possible upper GI bleeding with Caty-Villalobos tear with emesis, guaiac testing positive upon admission, workup has been stable Possible ileus abdominal CT study, will continue watches Apical thrombosis with history of cardiomyopathy, remote history of documented left ventricular thrombosis Accelerated hypertension. History of diabetic. Leukocytosis with no signs of infection, chest x-ray negative, this resolved Hypomag , hypopharynx and hypokalemia, replaced and follow-up Nonsustained V. tach 40 feet, which was happened before magnesium replaced, will continue closely watch for chemicals , replace as needed Acute kidney injuries upon admission with creatinine 1.57, resolved Possible marijuana abuse. Right forearm laceration status post staple, discussed with RN, open to air, local alcohol swab cleaning, need to have staple removed in 7 days, which will be October 06 Possible suicidal, with depression and history of depression, psychiatry input appreciated, start Prilosec History of seizure. History of stroke with right side paralyzed. 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
[2017-09-30 15:26] VITALS: BP 152/100; PULSE 65; TEMP 36.9; O2SAT 92
[2017-09-30] MEDS: FLUOXETINE HCL 10 MG CAP PO SCH (16:15)
[2017-09-30] MEDS ORDERED: NURSING VERBAL MED ORDER ONE (17:00)
[2017-09-30] MEDS ORDERED: ALUMINUM/MAGNESIUM/SIMETH (MAALOX MAX) 30 ML UDC PO PRN (18:00)
[2017-09-30 19:39] VITALS: BP 139/62; PULSE 67; TEMP 36.9; O2SAT 94
[2017-10-01] VITALS (10 sets, daily range): BP systolic 145–209; BP diastolic 78–93; PULSE 71–94; TEMP 36.6–37.2; O2SAT 91–98
[2017-10-01] MEDS: PANTOprazole INJ 40 MG in DEXTROSE 5% 100ML IV SCH ×4 (02:37→19:33)
[2017-10-01] MEDS: NSS + 20MEQ KCL 1000ML 1,000 ML IV SCH ×2 (04:50→17:16)
[2017-10-01 06:24] LABS: EOS % 0.6 %; EOS ABS # 0.04 K/uL (0-0.5); HEMATOCRIT 30.7 % (42-52); HEMOGLOBIN 11.1 g/dL (14.0-18.0); IG# 0.01 K/uL (0.00-0.02); LYMPH ABS # 1.61 K/uL (1.2-3.4); MEAN CORPUSCULAR HEMOGLOBIN 36.2 pg (25-34); MEAN CORPUSCULAR HGB CONC 36.2 g/dl (32-36); MEAN PLATELET VOLUME 10.2 fL (7.4-10.4); MONO % 10.3 %; MONO ABS # 0.64 K/uL (0.11-0.59); NEUT % 62.9 %; PLATELET COUNT 143 K/uL (130-400); RED CELL DISTRIBUTION WIDTH CV 13.1 % (11.5-14.5); RED CELL DISTRIBUTION WIDTH SD 47.7 fL (36.4-46.3)
[2017-10-01 06:51] LABS: CREATININE 0.73 mg/dl (0.60-1.40)
[2017-10-01 06:52] LABS: CALCIUM 8.5 mg/dl (8.5-10.1); PHOSPHORUS 1.9 mg/dl (2.5-4.9); POTASSIUM 3.5 mmol/L (3.5-5.1)
[2017-10-01] MEDS: INSULIN ASPART 100 UNITS/ML 3 ML PEN SC SCH ×5 (07:00→20:21)
[2017-10-01] MEDS: FLUOXETINE HCL 10 MG CAP PO SCH (07:25)
[2017-10-01] MEDS: MAGNESIUM OXIDE 400 MG TAB PO SCH ×2 (07:26→20:20)
[2017-10-01] MEDS: MoRPHine SULFATE 2 MG/ML CARP IV PRN ×2 (07:27→15:10)
[2017-10-01] MEDS ORDERED: SODIUM PHOSPHATE 3 MMOL/1 ML INFUSION IV STA (07:42)
[2017-10-01] MEDS ORDERED: MAGNESIUM SULFATE 1GM / D5W 100 ML IV STA (07:50)
[2017-10-01] MEDS ORDERED: LISINOPRIL 5 MG TAB PO ONE ×2 (08:00→11:00)
[2017-10-01] MEDS ORDERED: SODIUM PHOSPHATE INJ 21 MMOL in SODIUM CHLORIDE 0.9% 500ML 500 ML IV ONE (09:00)
--- NOTE | 2017-10-01 12:22 | Progress Note ---
Subjective Date of Service: Oct 01, 2017. Subjective Pt evaluation today including: conversation w/ patient, physical exam, chart review, lab review, review of studies, conversation w/ computer consultant, review of inpatient medication list Patient was anxious, nurse reported he has been refusing food,, only sip of water and pills Patient clearly tell me he do not want to eat he want to talk When asking if you are depressed, is not able to tell me about this Problem List Medical Problems: (1) Abdominal pain, left upper quadrant Status: Acute (2) Dehydration Status: Acute (3) Fever Status: Acute (4) GI bleed Status: Acute (5) Hypertension Status: Acute (6) Laceration of right forearm Status: Acute (7) Non-compliance Status: Acute (8) Suicide attempt Status: Acute (9) Tachycardia Status: Acute (10) Voluntary starvation Status: Acute (11) Weakness Status: Acute Review of Systems Constitutional: + weakness, + fatigue, + problem reported (Is limited because patient has expressive aphasia) Objective Vital Signs Date Time Temp Pulse Resp B/P (MAP) Pulse Ox O2 Delivery O2 Flow Rate FiO2 10/01/17 08:24 36.6 75 20 209/88 (128) 97 Room Air 10/01/17 08:06 Room Air 10/01/17 04:39 171/91 (117) 10/01/17 04:32 36.9 94 20 182/84 (116) 98 Room Air 10/01/17 00:34 36.6 71 18 160/93 (115) 98 Room Air 09/30/17 20:00 Room Air 09/30/17 19:39 36.9 67 18 139/62 (87) 94 09/30/17 15:26 36.9 65 18 152/100 (117) 92 09/30/17 12:03 Room Air Physical Exam General Appearance: WD/WN, no apparent distress, + cachetic, + thin, + pertinent finding (Flat ) Eyes: normal inspection, PERRL, EOMI, sclerae normal ENT: normal ENT inspection, hearing grossly normal, pharynx normal Neck: supple, no adenopathy, thyroid normal, no JVD, no carotid bruits, trachea midline Respiratory/Chest: chest non-tender, normal breath sounds, no respiratory distress, no accessory muscle use, + decreased breath sounds Cardiovascular: regular rate, rhythm, no edema, no gallop, no JVD, no murmur Abdomen: normal bowel sounds, non tender, soft, no organomegaly, no pulsatile mass Extremities: normal range of motion, non-tender, normal inspection, no pedal edema, no calf tenderness, normal capillary refill, pelvis stable, + pertinent finding (Anxious, expression aphasia) Neurologic/Psychiatric: alert, + motor weakness (Right-sided paralyzed) Skin: warm/dry, no rash, + pertinent finding (Right forearm 2 lacerations, which were stapled, local wound looks clean no drainages no red) Lymphatic: no adenopathy Laboratory Results Last 24 Hours Test 09/30/17 16:24 09/30/17 20:19 10/01/17 06:02 Bedside Glucose 118 mg/dl 107 mg/dl White Blood Count 6.20 K/uL Red Blood Count 3.07 M/uL Hemoglobin 11.1 g/dL Hematocrit 30.7 % Mean Corpuscular Volume 100.0 fL Mean Corpuscular Hemoglobin 36.2 pg Mean Corpuscular Hemoglobin Concent 36.2 g/dl Platelet Count 143 K/uL Mean Platelet Volume 10.2 fL Neutrophils (%) (Auto) 62.9 % Lymphocytes (%) (Auto) 26.0 % Monocytes (%) (Auto) 10.3 % Eosinophils (%) (Auto) 0.6 % Basophils (%) (Auto) 0.0 % Neutrophils # (Auto) 3.90 K/uL Lymphocytes # (Auto) 1.61 K/uL Monocytes # (Auto) 0.64 K/uL Eosinophils # (Auto) 0.04 K/uL Basophils # (Auto) 0.00 K/uL RDW Standard Deviation 47.7 fL RDW Coefficient of Variation 13.1 % Immature Granulocyte % (Auto) 0.2 % Immature Granulocyte # (Auto) 0.01 K/uL Sodium Level 139 mmol/L Potassium Level 3.5 mmol/L Chloride Level 105 mmol/L Carbon Dioxide Level 24 mmol/L Anion Gap 10.0 mmol/L Blood Urea Nitrogen 8 mg/dl Creatinine 0.73 mg/dl Est Creatinine Clear Calc Drug Dose 107.3 ml/min Estimated GFR () 123.6 Estimated GFR (Non- 106.6 BUN/Creatinine Ratio 11.4 Random Glucose 98 mg/dl Calcium Level 8.5 mg/dl Phosphorus Level 1.9 mg/dl Magnesium Level 1.6 mg/dl Assessment and Plan A 51-year-old white male admitted on September 29, 2017with problems suicidal and cut himself Possible upper GI bleeding with Caty-Villalobos tear with emesis, guaiac testing positive in the emesis upon admission, workup has been stable, hemoglobin is 11 today and was 13 upon admission, has been on PPI, GI saw patient likely small mucosal tears from the retching and vomiting , continue pantoprazole 40 mg twice daily,, continue Maalox as needed, GI recommend checking H. pylori and consider upper endoscopy if patient want to have further evaluation. Avoid NSAIDs if possible. Possible ileus abdominal CT study, no documented bowel movement so far, patient has not eating for days Apical thrombosis with history of cardiomyopathy, remote history of documented left ventricular thrombosis, talk to tape recorder repairer, possible not a candidate to anticoagulation in terms of current possible upper GI bleeding and in terms of patient's goal on her care, he was in hospice care prior to admission Accelerated hypertension, today's getting worse blood pressure 209/88 History of diabetic. Leukocytosis with no signs of infection, chest x-ray negative, this resolved Nonsustained V. tach 40 beats on 09/30/2017 , which was happened before magnesium replaced, no more new episode Hypomag , hypopharynx and hypokalemia, replaced and follow-up Acute kidney injuries upon admission with creatinine 1.57, resolved Possible marijuana abuse. Right forearm laceration status post staple, discussed with RN, open to air, local alcohol swab cleaning, need to have staple removed in 7 days, which will be October 06 suicidal attempt, with depression and history of depression, psychiatry input appreciated, start Prozac, increased from 10 to 20 mgp po daily History of seizure. History of stroke with right side paralyzed. Discharge plan: Patient want to go home and , per psychiatry evaluation, patient is competent to make decision for himself. Per Psychiatry patient have depression components and need to be treated , and he needs to be treated as an inpatient psych unit if they have bed, then recommend to increase Prozac from 10 -20 mg p.o. daily. Report the patient was on hospice care prior to admission, and palliative care on the case, I feel if patient's power of patent prosecution attorney agrees, patient will be appropriate to go home and at home. But just want to make sure patient's decision is not within a component of depression. Therefore I would recommend have family meetings with power of patent prosecution attorney, palliative care, psychiatry, and hospitalist team tomorrow to find out what be the best plan for patient. I talked to rifle case repairer about this. Continue one-to-one suicidal precaution and observation, transfer to [facility], Continued [facility] stay due to: multiple IV medications needed Discharge planning: uncertain
[2017-10-01] MEDS: ONDANSETRON INJ 2 MG/ML 2 ML VIAL IV PRN (15:13)
[2017-10-01] MEDS ORDERED: NURSING VERBAL MED ORDER ONE (17:30)
[2017-10-02] MEDS: PANTOprazole INJ 40 MG in DEXTROSE 5% 100ML IV SCH ×4 (00:09→13:09)
[2017-10-02] MEDS: NSS + 20MEQ KCL 1000ML 1,000 ML IV SCH (05:01)
[2017-10-02 06:57] VITALS: BP 169/88; PULSE 76; TEMP 36.8; O2SAT 97
[2017-10-02 07:01] LABS: BASO % 0.2 %; BASO ABS # 0.01 K/uL (0-0.2); HEMATOCRIT 30.6 % (42-52); HEMOGLOBIN 11.1 g/dL (14.0-18.0); IG# 0.04 K/uL (0.00-0.02); LYMPH % 25.8 %; LYMPH ABS # 1.69 K/uL (1.2-3.4); MEAN CELL VOLUME 97.8 fL (80-100); MEAN CORPUSCULAR HEMOGLOBIN 35.5 pg (25-34); MEAN CORPUSCULAR HGB CONC 36.3 g/dl (32-36); MEAN PLATELET VOLUME 10.6 fL (7.4-10.4); MONO % 8.4 %; MONO ABS # 0.55 K/uL (0.11-0.59); NEUT ABS # 4.07 K/uL (1.4-6.5); PLATELET COUNT 162 K/uL (130-400); RED CELL DISTRIBUTION WIDTH CV 12.9 % (11.5-14.5); WHITE BLOOD COUNT 6.56 K/uL (4.8-10.8)
[2017-10-02 07:40] LABS: CALCIUM 8.5 mg/dl (8.5-10.1); CREATININE 0.65 mg/dl (0.60-1.40); PHOSPHORUS 2.5 mg/dl (2.5-4.9); POTASSIUM 3.5 mmol/L (3.5-5.1)
[2017-10-02] MEDS ORDERED: LISINOPRIL 5 MG TAB PO SCH ×2 (08:00→09:00)
[2017-10-02] MEDS: MAGNESIUM OXIDE 400 MG TAB PO SCH ×2 (08:29→20:56)
[2017-10-02 08:30] VITALS: O2SAT 97
[2017-10-02] MEDS: FLUOXETINE HCL 20 MG CAP PO SCH (08:30)
[2017-10-02] MEDS: INSULIN ASPART 100 UNITS/ML 3 ML PEN SC SCH ×4 (08:31→20:59)
--- NOTE | 2017-10-02 14:57 | Palliative Care Progress Note ---
Palliative Care Progress Note Date of Service Oct 02, 2017. Subjective Pt evaluation today including: conversation w/ patient, physical exam, chart review, conversation w/ treasury consultant, review of inpatient medication list Pain: Patient still notes upper abdominal pain, not severe per patient PO Intake: Poor, refusing solids Voiding: no voiding problems Review of Systems Constitutional: No fever, No chills Eyes: No worsening of vision ENT: No hearing loss Respiratory: No cough Cardiac: No chest pain, No edema Abdomen: + pain (Mild per patient), No vomiting Male : No dysuria Neurologic: + problem reported (Right sided paralysis, left-sided weakness) Psychiatric: + problem reported (Patient with a history depression, now restarted on Prozac) Objective Vital Signs Date Time Temp Pulse Resp B/P (MAP) Pulse Ox O2 Delivery O2 Flow Rate FiO2 10/02/17 08:30 97 Room Air 10/02/17 06:57 36.8 76 18 169/88 (115) 97 Room Air 10/01/17 23:19 36.8 74 18 168/86 (113) 96 Room Air 10/01/17 21:01 91 Room Air 10/01/17 16:05 Room Air 10/01/17 16:05 36.8 77 18 145/78 (100) 91 Room Air 10/01/17 15:21 36.6 76 18 167/90 (115) 94 Room Air 10/01/17 14:54 37.2 77 16 97 Physical Exam General Appearance: no apparent distress Eyes: EOMI ENT: hearing grossly normal Respiratory/Chest: lungs clear Cardiovascular: regular rate, rhythm, no edema Abdomen: soft, + pertinent finding (Mild tenderness on palpation) Extremities: + pertinent finding (Right-sided hemiparesis, left-sided weakness) Neurologic/Psychiatric: + pertinent finding (Patient with receptive and expressive aphasia, can communicate at times, uses white board to communicate other than yes and no) Skin: normal color Laboratory Results Last 24 Hours Test 10/01/17 17:02 10/01/17 19:33 10/02/17 06:38 10/02/17 12:57 Bedside Glucose 111 mg/dl 115 mg/dl 131 mg/dl White Blood Count 6.56 K/uL Red Blood Count 3.13 M/uL Hemoglobin 11.1 g/dL Hematocrit 30.6 % Mean Corpuscular Volume 97.8 fL Mean Corpuscular Hemoglobin 35.5 pg Mean Corpuscular Hemoglobin Concent 36.3 g/dl Platelet Count 162 K/uL Mean Platelet Volume 10.6 fL Neutrophils (%) (Auto) 62.0 % Lymphocytes (%) (Auto) 25.8 % Monocytes (%) (Auto) 8.4 % Eosinophils (%) (Auto) 3.0 % Basophils (%) (Auto) 0.2 % Neutrophils # (Auto) 4.07 K/uL Lymphocytes # (Auto) 1.69 K/uL Monocytes # (Auto) 0.55 K/uL Eosinophils # (Auto) 0.20 K/uL Basophils # (Auto) 0.01 K/uL RDW Standard Deviation 46.0 fL RDW Coefficient of Variation 12.9 % Immature Granulocyte % (Auto) 0.6 % Immature Granulocyte # (Auto) 0.04 K/uL Sodium Level 137 mmol/L Potassium Level 3.5 mmol/L Chloride Level 101 mmol/L Carbon Dioxide Level 27 mmol/L Anion Gap 10.0 mmol/L Blood Urea Nitrogen 5 mg/dl Creatinine 0.65 mg/dl Est Creatinine Clear Calc Drug Dose 120.5 ml/min Estimated GFR () 129.6 Estimated GFR (Non- 111.9 BUN/Creatinine Ratio 7.1 Random Glucose 94 mg/dl Calcium Level 8.5 mg/dl Phosphorus Level 2.5 mg/dl Magnesium Level 1.6 mg/dl Assessment and Plan -Suicide attempt - appreciate psych consult, patient restarted on Prozac -Patient has a POLST form completed several months ago, patient stated at that time that he wanted to be a DO NOT RESUSCITATE. Patient recently has stated that he wanted to stop eating and drinking and allow natural . These current wishes are consistent with his prior statements several months ago when he was not depressed. -Nausea/vomiting -enteritis, continue PPI -CVA - approximately 10 years ago, has right-sided hemiparesis and left-sided weakness, has receptive and expressive aphasia. -Chronic pain-has been well controlled for the last several months using Robaxin and tramadol as needed. Caregiver also reports that Voltaren gel is very effective for right shoulder pain. Patient appears to have returned to his baseline as I have known it for the past 7 months Palliative Performance Scale: 40 % Continued [facility] stay due to: multiple IV medications needed Discharge planning: uncertain Counseling and Coordination Total time spent 35 minutes with greater than 50% of the time spent at bedside evaluating patient and confirming his wishes.
[2017-10-02 15:19] VITALS: BP 177/96; PULSE 86; TEMP 36.8; O2SAT 95
--- NOTE | 2017-10-02 16:04 | Progress Note ---
Subjective Date of Service: Oct 02, 2017. Subjective Pt evaluation today including: conversation w/ patient, physical exam, lab review, conversation w/ acquisition consultant, review of inpatient medication list Pain: no pain PO Intake: clears Voiding: no voiding problems patient without complaints, wants to eat and to walk to the bathroom advanced diet to low fiber for tonight reviewed labs, Hb stable at 11.1, mag low at 1.6, Cr and other electrolytes stable discussed with psychiatry, they do not feel patient needs inpatient psychiatric care, do not feel he would benefit or be able to purposefully participate his suicidality has chronicity, due to his medical conditions that frustrate him and limit him talked with MAGDALENAValorie Ochoa, he plans on taking him home, getting house set up Problem List Medical Problems: (1) Abdominal pain, left upper quadrant Status: Acute (2) Dehydration Status: Acute (3) Fever Status: Acute (4) GI bleed Status: Acute (5) Hypertension Status: Acute (6) Laceration of right forearm Status: Acute (7) Non-compliance Status: Acute (8) Suicide attempt Status: Acute (9) Tachycardia Status: Acute (10) Voluntary starvation Status: Acute (11) Weakness Status: Acute Review of Systems Constitutional: + weakness Neurologic: + weakness, + problem reported (aphasia) Psychiatric: + depression symptoms All Other Systems: Reviewed and Negative Medications Current Inpatient Medications Medications (Trade) Dose Ordered Sig/Jerson Route Start Time Stop Time Status Last Admin Dose Admin Ioversol (Optiray 320) 125 ml UD PRN IV 09/29/17 05:30 10/03/17 05:29 Acetaminophen (Tylenol Tab) 650 mg Q4H PRN PO 09/29/17 08:30 10/29/17 08:29 Magnesium Hydroxide (Milk Of Magnesia Susp) 30 ml Q12H PRN PO 09/29/17 08:30 10/29/17 08:29 Zolpidem Tartrate (Ambien Tab) 5 mg HSZ PRN PO 09/29/17 08:30 10/29/17 08:29 Ondansetron HCl (Zofran Inj) 4 mg Q6H PRN IV 09/29/17 08:30 10/29/17 08:29 10/01/17 15:13 4 MG Polyethylene (Miralax Powder Packet) 17 gm DAILY PRN PO 09/29/17 08:30 10/29/17 08:29 Morphine Sulfate (MoRPHine SULFATE INJ) 2 mg Q6 PRN IV 09/29/17 08:30 10/13/17 08:29 10/01/17 15:10 2 MG Glucose (Glucose 40% Gel) 15-30 GRAMS 15 GRAMS... UD PRN PO 09/29/17 11:45 10/29/17 11:44 Glucose (Glucose Chew Tab) 4-8 Tablets 4 Tabl... UD PRN PO 09/29/17 11:45 10/29/17 11:44 Dextrose (Dextrose 50% 50ML Syringe) 25-50ML 25ML FOR ... UD PRN IV 09/29/17 11:45 10/29/17 11:44 Glucagon (Glucagon Inj) 1 mg UD PRN IM 09/29/17 11:45 10/29/17 11:44 Carbohydrates (Carbohydrates For Hypoglycemia) 15-30 GRAMS 15 grams if BSG 54-69... UD PRN PO 09/29/17 11:45 10/29/17 11:44 Baclofen (Lioresal Tab) 10 mg BID PRN PO 09/29/17 15:30 10/29/17 15:29 Diclofenac Sodium (Voltaren 1% Top Gel) 1 appln Q6H PRN EXT 09/29/17 16:00 10/29/17 15:59 Magnesium Oxide (Mag-Ox Tab) 400 mg BID PO 09/30/17 09:00 10/30/17 08:59 10/02/17 08:29 400 MG Al Hydrox/Mg Hydrox/Simethicone (Maalox Max Susp) 30 ml Q6H PRN PO 09/30/17 18:00 10/30/17 17:59 Hydralazine HCl (HydrALAZINE INJ) 20 mg Q6H PRN IV. 09/30/17 12:15 10/30/17 12:14 Insulin Aspart (novoLOG ASPART) SLIDING SCALE G... ACHS SC 09/30/17 17:00 10/30/17 16:59 Lisinopril (Zestril Tab) 10 mg QAM PO 10/02/17 08:00 11/01/17 08:59 10/02/17 08:29 10 MG Fluoxetine HCl (Prozac Cap) 20 mg QAM PO 10/02/17 08:00 10/31/17 08:59 10/02/17 08:30 20 MG Pantoprazole Sodium (Protonix Tab) 40 mg BID PO 10/02/17 20:00 11/01/17 19:59 Objective Vital Signs Date Time Temp Pulse Resp B/P (MAP) Pulse Ox O2 Delivery O2 Flow Rate FiO2 10/02/17 15:19 36.8 86 18 177/96 (123) 95 Room Air 10/02/17 08:30 97 Room Air 10/02/17 06:57 36.8 76 18 169/88 (115) 97 Room Air 10/01/17 23:19 36.8 74 18 168/86 (113) 96 Room Air 10/01/17 21:01 91 Room Air 10/01/17 16:05 Room Air 10/01/17 16:05 36.8 77 18 145/78 (100) 91 Room Air Physical Exam General Appearance: no apparent distress, + thin Eyes: normal inspection, EOMI, sclerae normal ENT: normal ENT inspection, hearing grossly normal, pharynx normal Neck: supple, no adenopathy, no JVD, trachea midline Respiratory/Chest: chest non-tender, lungs clear, normal breath sounds, no respiratory distress, no accessory muscle use Cardiovascular: regular rate, rhythm, no edema, no gallop, no JVD, no murmur Abdomen: normal bowel sounds, non tender, soft, no organomegaly Extremities: non-tender, normal inspection, no pedal edema, no calf tenderness , normal capillary refill, pelvis stable 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, alert, normal mood/affect, oriented x 3, + aphasia (expressive and receptive, can understand written communication), + motor weakness (right side upper extremity weakness) Skin: normal color, warm/dry, no rash Laboratory Results Last 24 Hours Test 10/01/17 17:02 10/01/17 19:33 10/02/17 06:38 10/02/17 12:57 Bedside Glucose 111 mg/dl 115 mg/dl 131 mg/dl White Blood Count 6.56 K/uL Red Blood Count 3.13 M/uL Hemoglobin 11.1 g/dL Hematocrit 30.6 % Mean Corpuscular Volume 97.8 fL Mean Corpuscular Hemoglobin 35.5 pg Mean Corpuscular Hemoglobin Concent 36.3 g/dl Platelet Count 162 K/uL Mean Platelet Volume 10.6 fL Neutrophils (%) (Auto) 62.0 % Lymphocytes (%) (Auto) 25.8 % Monocytes (%) (Auto) 8.4 % Eosinophils (%) (Auto) 3.0 % Basophils (%) (Auto) 0.2 % Neutrophils # (Auto) 4.07 K/uL Lymphocytes # (Auto) 1.69 K/uL Monocytes # (Auto) 0.55 K/uL Eosinophils # (Auto) 0.20 K/uL Basophils # (Auto) 0.01 K/uL RDW Standard Deviation 46.0 fL RDW Coefficient of Variation 12.9 % Immature Granulocyte % (Auto) 0.6 % Immature Granulocyte # (Auto) 0.04 K/uL Sodium Level 137 mmol/L Potassium Level 3.5 mmol/L Chloride Level 101 mmol/L Carbon Dioxide Level 27 mmol/L Anion Gap 10.0 mmol/L Blood Urea Nitrogen 5 mg/dl Creatinine 0.65 mg/dl Est Creatinine Clear Calc Drug Dose 120.5 ml/min Estimated GFR () 129.6 Estimated GFR (Non- 111.9 BUN/Creatinine Ratio 7.1 Random Glucose 94 mg/dl Calcium Level 8.5 mg/dl Phosphorus Level 2.5 mg/dl Magnesium Level 1.6 mg/dl Assessment and Plan A 51-year-old white male admitted on September 29, 2017 after self inflicted cut to right forearm, possible suicide attempt, also with vomiting and hematemesis - Upper GI bleed, likely Caty-Villalobos tear guaiac positive emesis Hb stable at 11.1 for two days in a row no evidence of active bleeding advance diet to low fiber change Protonix to 40mg PO BID repeat labs in AM - Possible ileus advance diet, look for BM, no vomiting for several days - Apical thrombus, h/o cardiomyopathy no anticoagulation with GI bleeding as well as goal of care to be hospice, palliative - Accelerated HTN started on Lisinopril, need to increase dose since systolic pressure still 170's increase to 20mg BID, next dose this evening, follow pressures - Hypomagnesemia 1.6 this morning, Mag Oxide 400mg BID - Acute kidney injury: resolved, Cr is at baseline, stop fluids, encourage PO intake - Right forearm laceration status post staple, discussed with RN, open to air, local alcohol swab cleaning, need to have staple removed in 7 days, which will be October 06 - suicidal attempt, with depression and history of depression, psychiatry input appreciated, start Prozac, increased from 10 to 20 mgp po daily d/w psychiatry today, no immediate needs for inpatient psychiatry depression, suicidality is chronic issue, related to his frustrations with chronic medical conditions, paralysis, wants to be hospice will continue Prozac 20mg daily on discharge, could be titrated up as outpatient History of stroke with right side paralyzed. Discharge plan: home with hospice in 1-2 days Continued [facility] stay due to: multiple IV medications needed Discharge planning: uncertain
[2017-10-02] MEDS ORDERED: MAGNESIUM OXIDE 400 MG TAB PO SCH (20:00)
[2017-10-02] MEDS: PANTOprazole SOD 40 MG TAB PO SCH (20:56)
[2017-10-02] MEDS: MoRPHine SULFATE 2 MG/ML CARP IV PRN (20:57)
[2017-10-02] MEDS: LISINOPRIL 20 MG TAB PO SCH (20:57)
[2017-10-02 23:59] VITALS: BP 169/101; PULSE 86; TEMP 36.5; O2SAT 98
[2017-10-03 05:57] VITALS: BP 184/102
[2017-10-03 06:50] VITALS: BP 95/57; PULSE 85; TEMP 36.7; O2SAT 97
[2017-10-03 07:48] LABS: HEMATOCRIT 36.6 % (42-52); HEMOGLOBIN 13.5 g/dL (14.0-18.0); MEAN CELL VOLUME 96.8 fL (80-100); MEAN CORPUSCULAR HEMOGLOBIN 35.7 pg (25-34); MEAN CORPUSCULAR HGB CONC 36.9 g/dl (32-36); MEAN PLATELET VOLUME 10.4 fL (7.4-10.4); PLATELET COUNT 268 K/uL (130-400); RED CELL DISTRIBUTION WIDTH CV 12.9 % (11.5-14.5); WHITE BLOOD COUNT 9.45 K/uL (4.8-10.8)
[2017-10-03 07:57] LABS: CREATININE 0.76 mg/dl (0.60-1.40)
[2017-10-03 08:20] LABS: BASO % 0.1 %; BASO ABS # 0.01 K/uL (0-0.2); EOS % 1.2 %; EOS ABS # 0.11 K/uL (0-0.5); IG# 0.05 K/uL (0.00-0.02); LYMPH ABS # 1.89 K/uL (1.2-3.4); MONO % 10.7 %; MONO ABS # 1.01 K/uL (0.11-0.59); NEUT % 67.5 %; NEUT ABS # 6.38 K/uL (1.4-6.5)
[2017-10-03] MEDS: PANTOprazole SOD 40 MG TAB PO SCH ×2 (08:39→20:16)
[2017-10-03] MEDS: LISINOPRIL 20 MG TAB PO SCH ×2 (08:39→20:16)
[2017-10-03] MEDS: FLUOXETINE HCL 20 MG CAP PO SCH (08:39)
[2017-10-03] MEDS: MAGNESIUM OXIDE 400 MG TAB PO SCH ×2 (08:40→20:16)
[2017-10-03] MEDS: INSULIN ASPART 100 UNITS/ML 3 ML PEN SC SCH ×4 (08:41→20:16)
[2017-10-03 08:43] VITALS: BP 107/70; PULSE 80
[2017-10-03] MEDS: MoRPHine SULFATE 2 MG/ML CARP IV PRN ×2 (10:32→20:16)
[2017-10-03] MEDS: ONDANSETRON INJ 2 MG/ML 2 ML VIAL IV PRN (11:57)
--- NOTE | 2017-10-03 14:39 | DIAGNOSTIC IMAGING REPORT ---
KUB HISTORY: Acute generalized abdominal pain with vomiting abdominal pain, vomiting COMPARISON: KUB and CTA 09/29/2017 FINDINGS: The bowel gas pattern is non-obstructive. Gas-filled loops of small and large bowel are noted with small bowel loops measuring up to 2.8 cm which appears similar to comparison. There is no organomegaly. Vascular calcifications are noted. No renal calculi. No ureteral calculi. No pneumoperitoneum or pneumatosis. No fracture. IMPRESSION: Air-filled loops of small and large bowel suggest ileus with nonobstructive bowel gas pattern. Electronically signed by: Sherman Silverio M.D. 10/03/2017 2:38 PM Dictated Date/Time: 10/03/2017 2:34 PM
[2017-10-03 15:08] VITALS: BP 136/84; PULSE 95; TEMP 36.9; O2SAT 96
--- NOTE | 2017-10-03 20:41 | Progress Note ---
Subjective Date of Service: Oct 03, 2017. Subjective Pt evaluation today including: conversation w/ patient, physical exam, lab review, review of studies, review of inpatient medication list Pain: mild abdominal pain PO Intake: poor, vomited Voiding: no voiding problems patient tried to eat today after refusing food last night shortly after eating lunch he vomited a lot, appeared to be undigested food KUB at the bedside showed dilated small and large bowel loops consistent with non-obstructive ileus reviewed labs, K low at 3.0, magnesium low, Hb up at 13.5 CM discussed plan with PARISH Ochoa, will go home with hospice tomorrow Problem List Medical Problems: (1) Abdominal pain, left upper quadrant Status: Acute (2) Dehydration Status: Acute (3) Fever Status: Acute (4) GI bleed Status: Acute (5) Hypertension Status: Acute (6) Laceration of right forearm Status: Acute (7) Non-compliance Status: Acute (8) Suicide attempt Status: Acute (9) Tachycardia Status: Acute (10) Voluntary starvation Status: Acute (11) Weakness Status: Acute Review of Systems Constitutional: + weakness, + fatigue Abdomen: + pain, + nausea, + vomiting Neurologic: + weakness (right sided) All Other Systems: Reviewed and Negative Medications Current Inpatient Medications Medications (Trade) Dose Ordered Sig/Jerson Route Start Time Stop Time Status Last Admin Dose Admin Acetaminophen (Tylenol Tab) 650 mg Q4H PRN PO 09/29/17 08:30 10/29/17 08:29 Magnesium Hydroxide (Milk Of Magnesia Susp) 30 ml Q12H PRN PO 09/29/17 08:30 10/29/17 08:29 Zolpidem Tartrate (Ambien Tab) 5 mg HSZ PRN PO 09/29/17 08:30 10/29/17 08:29 Ondansetron HCl (Zofran Inj) 4 mg Q6H PRN IV 09/29/17 08:30 10/29/17 08:29 10/03/17 11:57 4 MG Polyethylene (Miralax Powder Packet) 17 gm DAILY PRN PO 09/29/17 08:30 10/29/17 08:29 Morphine Sulfate (MoRPHine SULFATE INJ) 2 mg Q6 PRN IV 09/29/17 08:30 10/13/17 08:29 10/03/17 20:16 2 MG Glucose (Glucose 40% Gel) 15-30 GRAMS 15 GRAMS... UD PRN PO 09/29/17 11:45 10/29/17 11:44 Glucose (Glucose Chew Tab) 4-8 Tablets 4 Tabl... UD PRN PO 09/29/17 11:45 10/29/17 11:44 Dextrose (Dextrose 50% 50ML Syringe) 25-50ML 25ML FOR ... UD PRN IV 09/29/17 11:45 10/29/17 11:44 Glucagon (Glucagon Inj) 1 mg UD PRN IM 09/29/17 11:45 10/29/17 11:44 Carbohydrates (Carbohydrates For Hypoglycemia) 15-30 GRAMS 15 grams if BSG 54-69... UD PRN PO 09/29/17 11:45 10/29/17 11:44 Baclofen (Lioresal Tab) 10 mg BID PRN PO 09/29/17 15:30 10/29/17 15:29 Diclofenac Sodium (Voltaren 1% Top Gel) 1 appln Q6H PRN EXT 09/29/17 16:00 10/29/17 15:59 Magnesium Oxide (Mag-Ox Tab) 400 mg BID PO 09/30/17 09:00 10/30/17 08:59 10/03/17 20:16 400 MG Al Hydrox/Mg Hydrox/Simethicone (Maalox Max Susp) 30 ml Q6H PRN PO 09/30/17 18:00 10/30/17 17:59 Hydralazine HCl (HydrALAZINE INJ) 20 mg Q6H PRN IV. 09/30/17 12:15 10/30/17 12:14 10/03/17 06:01 20 MG Insulin Aspart (novoLOG ASPART) SLIDING SCALE G... ACHS SC 09/30/17 17:00 10/30/17 16:59 10/03/17 17:32 3 UNITS Fluoxetine HCl (Prozac Cap) 20 mg QAM PO 10/02/17 08:00 10/31/17 08:59 10/03/17 08:39 20 MG Pantoprazole Sodium (Protonix Tab) 40 mg BID PO 10/02/17 20:00 11/01/17 19:59 10/03/17 20:16 40 MG Lisinopril (Zestril Tab) 20 mg BID PO 10/02/17 20:00 11/01/17 08:59 10/03/17 20:16 20 MG Objective Vital Signs Date Time Temp Pulse Resp B/P (MAP) Pulse Ox O2 Delivery O2 Flow Rate FiO2 10/03/17 16:00 Room Air 10/03/17 15:08 36.9 95 18 136/84 (101) 96 Room Air 10/03/17 08:45 Room Air 10/03/17 08:43 80 107/70 (82) 10/03/17 06:50 36.7 85 20 95/57 (70) 97 Room Air 10/03/17 05:57 184/102 (129) 10/03/17 00:45 Room Air 10/02/17 23:59 36.5 86 20 169/101 (123) 98 Room Air Physical Exam General Appearance: WD/WN, no apparent distress Eyes: normal inspection, EOMI, sclerae normal ENT: normal ENT inspection, hearing grossly normal, pharynx normal Neck: supple, no adenopathy, no JVD, trachea midline Respiratory/Chest: chest non-tender, lungs clear, no respiratory distress, no accessory muscle use, + decreased breath sounds (bases) Cardiovascular: regular rate, rhythm, no edema, no gallop, no JVD, no murmur Abdomen: soft, + abnormal bowel sounds (hypoactive), + tenderness (mild) Extremities: normal range of motion, non-tender, normal inspection, no pedal edema, no calf tenderness, pelvis stable 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, alert, + motor weakness ( right sided), + depressed affect Skin: normal color, warm/dry, no rash Laboratory Results Last 24 Hours Test 10/02/17 20:38 10/03/17 07:09 10/03/17 07:46 10/03/17 11:29 Bedside Glucose 160 mg/dl 99 mg/dl 146 mg/dl White Blood Count 9.45 K/uL Red Blood Count 3.78 M/uL Hemoglobin 13.5 g/dL Hematocrit 36.6 % Mean Corpuscular Volume 96.8 fL Mean Corpuscular Hemoglobin 35.7 pg Mean Corpuscular Hemoglobin Concent 36.9 g/dl Platelet Count 268 K/uL Mean Platelet Volume 10.4 fL Neutrophils (%) (Auto) 67.5 % Lymphocytes (%) (Auto) 20.0 % Monocytes (%) (Auto) 10.7 % Eosinophils (%) (Auto) 1.2 % Basophils (%) (Auto) 0.1 % Neutrophils # (Auto) 6.38 K/uL Lymphocytes # (Auto) 1.89 K/uL Monocytes # (Auto) 1.01 K/uL Eosinophils # (Auto) 0.11 K/uL Basophils # (Auto) 0.01 K/uL RDW Standard Deviation 45.0 fL RDW Coefficient of Variation 12.9 % Immature Granulocyte % (Auto) 0.5 % Immature Granulocyte # (Auto) 0.05 K/uL Sodium Level 133 mmol/L Potassium Level 3.0 mmol/L Chloride Level 93 mmol/L Carbon Dioxide Level 27 mmol/L Anion Gap 13.0 mmol/L Blood Urea Nitrogen 5 mg/dl Creatinine 0.76 mg/dl Est Creatinine Clear Calc Drug Dose 103.1 ml/min Estimated GFR () 121.6 Estimated GFR (Non- 104.9 BUN/Creatinine Ratio 6.8 Random Glucose 91 mg/dl Calcium Level 9.0 mg/dl Magnesium Level 1.5 mg/dl Test 10/03/17 16:27 10/03/17 20:00 Bedside Glucose 117 mg/dl 152 mg/dl Assessment and Plan A 51-year-old white male admitted on September 29, 2017 after self inflicted cut to right forearm, possible suicide attempt, also with vomiting and hematemesis - Upper GI bleed, likely Caty-Villalobos tear guaiac positive emesis Hb trending up to 13.5gm no evidence of active bleeding advance diet to low fiber change Protonix to 40mg PO BID - Non-obstructive ileus not tolerating diet today, vomited per patient, he does not want to eat, wants to - Apical thrombus, h/o cardiomyopathy no anticoagulation with GI bleeding as well as goal of care to be hospice, palliative - Accelerated HTN started on Lisinopril, needed to increase dose since systolic pressure were in 170's increased to 20mg BID, BP better today - Hypomagnesemia 1.6 this morning, Mag Oxide 400mg BID - Acute kidney injury: resolved, Cr is at baseline, stop fluids, encourage PO intake - Right forearm laceration status post staple, discussed with RN, open to air, local alcohol swab cleaning, need to have staple removed in 7 days, which will be October 06 - suicidal attempt, with depression and history of depression, psychiatry input appreciated, start Prozac, increased from 10 to 20 mgp po daily d/w psychiatry, no immediate needs for inpatient psychiatry depression, suicidality is chronic issue, related to his frustrations with chronic medical conditions, paralysis, wants to be hospice will continue Prozac 20mg daily on discharge, could be titrated up as outpatient History of stroke with right side paralyzed. Discharge plan: try to d/c home with hospice tomorrow Continued [facility] stay due to: multiple IV medications needed Discharge planning: uncertain
[2017-10-03 23:14] VITALS: BP 146/83; PULSE 99; TEMP 36.8; O2SAT 100
[2017-10-04 06:57] VITALS: BP 159/99; PULSE 87; TEMP 36.8; O2SAT 97
[2017-10-04] MEDS: PANTOprazole SOD 40 MG TAB PO SCH (07:29)
[2017-10-04] MEDS: LISINOPRIL 20 MG TAB PO SCH (07:29)
[2017-10-04] MEDS: MAGNESIUM OXIDE 400 MG TAB PO SCH (07:30)
[2017-10-04] MEDS: FLUOXETINE HCL 20 MG CAP PO SCH (07:30)
[2017-10-04] MEDS: INSULIN ASPART 100 UNITS/ML 3 ML PEN SC SCH ×2 (08:59→12:58)
[2017-10-04] MEDS ORDERED: PANT40TA2 PO (11:41)
[2017-10-04] MEDS ORDERED: LISI40TA3 PO (11:41)
[2017-10-04] MEDS ORDERED: FLUO20CA36 PO (11:41)
[2017-10-04] MEDS ORDERED: MRLP17X PO (11:41)
[2017-10-04] MEDS ORDERED: VLTG EXT (11:41)
[2017-10-04] MEDS ORDERED: BISA10SU3 PR (11:43)
--- NOTE | 2017-10-04 11:53 | Discharge Instructions ---
Discharge Instructions Date of Service Oct 04, 2017. Admission Reason for Admission: Upper Gi Bleeding, Apical Thrombus Discharge Discharge Diagnosis / Problem: GI bleed due to vomiting, Ileus (non-obstructive ) Discharge Goals Goal(s): Decrease discomfort, Specific goals (palliative/hospice care) Activity Recommendations Activity Limitations: per Instructions/Follow-up section Lifting Limitations: none Exercise/Sports Limitations: as tolerated Shower/Bathe: no limitations . Instructions / Follow-Up Instructions / Follow-Up Medications: - PROZAC: 20mg daily for depression - PROTONIX: 40mg twice a day for reducing acid in stomach, helping to treat bleeding - LISINOPRIL: 40mg daily for blood pressure control - ZOFRAN: use as needed for nausea, place under tongue and it will dissolve Vomiting and upper gastrointestinal bleeding on admission most likely a Caty Carey tear in mucosa of stomach which was due to vomiting hemoglobin stable, no signs of active bleeding continue Protonix twice a day Ileus: no signs of obstruction on x-ray, your bowels are just not rick as well as they should will make eating difficult can use Dulcolax suppository and miralax to get things moving a little better eat what you can if you want to eat Thrombus (clot) in chamber of heart: no role for anticoagulation due to GI bleeding and palliative care Depression: psychiatry recommends Prozac 20mg daily Right arm laceration: can remove the omar on 10/06, bark tanner can assist with this if omar stay in longer it is not a big deal FOLLOW UP - hospice services - call Dr. Dewitt's office with any new issues or problems You can return to hospital if pain or nausea or shortness of breath or any other issues cannot be controlled at home. As hospice patient, goal is to treat symptoms and make you comfortable Current Hospital Diet Patient's current hospital diet: Low Fiber Diet Discharge Diet Recommended Diet: Low Fiber Diet Pending Studies Studies pending at discharge: no Laboratory Results Lipid Panel Test 09/30/17 05:56 Range/Units Triglycerides Level 120 0-150 mg/dl Cholesterol Level 120 0-200 mg/dl HDL Cholesterol 61 mg/dl Cholesterol/HDL Ratio 2.0 LDL Cholesterol, Calculated 35 mg/dl Medical Emergencies . Who to Call and When: Medical Emergencies: If at any time you feel your situation is an emergency, please call 911 immediately. . Non-Emergent Contact Non-Emergency issues call your: Specialist (Dr. Dewitt) Call Non-Emergent contact if: your pain is not controlled, you have any medication questions . . "Provider Documentation" section prepared by Sai Daniel. . [place] Drug Monitoring Program Search Results: no issues identified
[2017-10-04 12:44] VITALS: BP 159/99; PULSE 87; TEMP 36.8; O2SAT 97
[2017-10-04 13:00] VITALS: BP 132/92
[2017-10-04] MEDS ORDERED: ONDA4TAB10 SL (13:47)
--- NOTE | 2017-10-06 07:58 | Discharge Summary ---
Discharge Summary Date of Service Oct 04, 2017. Discharge Summary Admission Date: Sep 29, 2017 at 08:38 Discharge Date: Oct 04, 2017 Discharge Disposition: Home with services Principal Diagnosis: GI bleed, likely Katie Carey tear Problems/Secondary Diagnoses: Non-obstructive ileus Depression with suicidal ideation Right arm laceration h/o CVA with right sided weakness Hypertension Immunizations: Have You Had Influenza Vaccine: Yes Influenza Vaccine Date: Dec 21, 2012 History of Tetanus Vaccine?: Unknown Tetanus Immunization Date: Aug 13, 2012 History of Pneumococcal: No History of Hepatitis B Vaccine: Unknown Procedures: suturing, stapling of right arm laceration in the ED Consultations: Gastroenterology Psychiatry Palliative care Medication Reconciliation New Medications: Bisacodyl (Dulcolax) 10 Mg Sup 1 SUPP OK DAILY PRN for Constipation for 30 Days, #30 SUP Ondasetron Odt (Zofran Odt) 4 Mg Tab 4 MG SL Q6H PRN for Nausea or Vomiting, #30 TAB Diclofenac Sod (Voltaren) 100 Appln/100 Gm Gel 1 APPLN EXT Q6H PRN for R shoulder pain , #1 TUBE 0 Refills Fluoxetine HCl (Fluoxetine HCl) 20 Mg Cap 20 MG PO QAM, #30 CAP 2 Refills Lisinopril (Lisinopril) 40 Mg Tab 40 MG PO DAILY for 30 Days, #30 TABS 2 Refills Pantoprazole (Pantoprazole Sodium) 40 Mg Tab 40 MG PO BID, #60 TAB 2 Refills Polyethylene (Miralax) 17 Gm Pow 17 GM PO DAILY PRN for Constipation, #1 BTL 2 Refills Continued Medications: Methocarbamol (Robaxin) 500 Mg Tab 1-2 TAB PO TID PRN for MUSCLE SPASMS Tramadol HCl (Tramadol HCl) 50 Mg Tab 50 MG PO Q6 PRN for Pain Discharge Exam Patient feeling well, ready to go home. Not eating very well, had some vomiting the day before. Discussed with him and his POA Don that eating will be difficult due to ileus. Will try Miralax and suppositories as needed. Patient wants to stay home. They know to return to the hospital if symptoms cannot be controlled. Discussed plan with palliative. POLST had been completed in the past. Review of Systems: Constitutional: + weakness, + fatigue, No fever, No chills, No sweats, No weight loss, No problem reported Eyes: No worsening of vision, No eye pain, No redness, No discharge, No diplopia, No problem reported ENT: No hearing loss, No unusual epistaxis, No nasal symptoms, No sore throat, No tinnitus, No dental problems, No trouble swallowing, No problem reported Respiratory: No cough, No sputum, No wheezing, No shortness of breath, No dyspnea on exertion, No dyspnea at rest, No hemoptysis, No problem reported Cardiovascular: No chest pain, No orthopnea, No PND, No edema, No claudication, No palpitations, No problem reported Abdomen: + nausea, + vomiting, + constipation, No pain, No diarrhea, No GI bleeding Musculoskeletal: No joint pain, No muscle pain, No swelling, No calf pain, No problem reported Genitourinary - Male: No hematuria, No dysuria, No urinary frequency, No urinary urgency Neurologic: + weakness (right arm and leg), No memory loss, No paralysis, No numbness/tingling, No vertigo, No balance problems, No problem reported Psychiatric: + depression symptoms, No anhedonism, No anxiety, No insomnia, No substance abuse Endocrine: No fatigue, No excessive thirst, No excessive urination, No problem reported Hematologic / Lymphatic: No abnormal bleeding/bruising, No clotting problems , No swollen lymph nodes, No night sweats, No problem reported Integumentary: No rash, No itch, No new/changing skin lesions, No color change, No bleeding, No problem reported Physical Exam: General Appearance: no apparent distress, + thin Eyes: normal inspection, EOMI, sclerae normal ENT: normal ENT inspection, hearing grossly normal, pharynx normal Neck: supple, no adenopathy, no JVD, trachea midline Respiratory/Chest: chest non-tender, lungs clear, normal breath sounds, no respiratory distress, no accessory muscle use Cardiovascular: regular rate, rhythm, no edema, no gallop, no JVD, no murmur , normal peripheral pulses Abdomen / GI: non tender, soft, no organomegaly, + abnormal bowel sounds ( hypoactive but more active than day before) Extremities: normal inspection, no calf tenderness, normal capillary refill , no pedal edema, normal range of motion, pelvis stable Neurologic/Psychiatric: petal cutter II-XII nml as tested, alert, normal reflexes, oriented x 3, + motor weakness (right arm and leg), + depressed affect Skin: + pertinent finding (right arm laceration, omar in place, well approximated, no erythema or warmth) Hospital Course A 51-year-old white male admitted on September 29, 2017 after self inflicted cut to right forearm, possible suicide attempt, also with vomiting and hematemesis - Upper GI bleed, likely Caty-Villalobos tear guaiac positive emesis Hb trended up to 13.5gm no evidence of active bleeding advance diet to low fiber change Protonix to 40mg PO BID, continue this on discharge - Non-obstructive ileus not tolerating diet the day prior to discharge, vomited per patient, he does not want to eat, wants to will try to eat small amounts, use Miralax and suppositories to help move bowels - Apical thrombus, h/o cardiomyopathy no anticoagulation with GI bleeding as well as goal of care to be hospice, palliative - Accelerated HTN started on Lisinopril, needed to increase dose since systolic pressure were in 170's increased to 20mg BID, BP better, continue on discharge - Hypomagnesemia resolved, continue Mag Oxide on discharge - Acute kidney injury: resolved, Cr is at baseline, stop fluids, encourage PO intake - Right forearm laceration status post staple, discussed with RN, open to air, local alcohol swab cleaning, need to have staple removed in 7 days, which will be October 06, can be done by Hospice nursing - suicidal attempt, with depression and history of depression, psychiatry input appreciated, start Prozac, increased from 10 to 20 mgp po daily d/w psychiatry, no immediate needs for inpatient psychiatry depression, suicidality is chronic issue, related to his frustrations with chronic medical conditions, paralysis, wants to be hospice will continue Prozac 20mg daily on discharge, could be titrated up as outpatient History of stroke with right side paralyzed. supportive care, lives with Don, his processing spec, [facility] Discharge plan: home with hospice Total Time Spent: Greater than 30 minutes This includes examination of the patient, discharge planning, medication reconciliation, and communication with other providers. Discharge Instructions Please refer to the electronic Patient Visit Report (Discharge Instructions) for additional information. Follow-Up home hospice Dr. Dewitt as needed Additional Copies To Meghan Dewitt M.D.
== END 2017-10-04 14:28 | disposition hospice, home (50) | DRG 369 ==
LOC: EDBD 03:16 → C.EDB 03:17 → C.2E 08:38 → ENRESERV 09:27 → C.4E 10-01 16:17
PROVIDERS: ADMIT Hospitalist; ATTEND Internal Medicine
PROC: 0HQDXZZ Repair Right Lower Arm Skin, External Approach (ICD-10-PCS; principal; 2017-09-29)
DX: K22.6 Gastro-esophageal laceration-hemorrhage syndrome (principal); N17.9 Acute kidney failure, unspecified; R45.851 Suicidal ideations; K56.7 Ileus, unspecified; I42.9 Cardiomyopathy, unspecified; I47.2 Ventricular tachycardia; I69.351 Hemiplegia and hemiparesis following cerebral infarction affecting right dominant side; S51.811A Laceration without foreign body of right forearm, initial encounter; I51.3 Intracardiac thrombosis, not elsewhere classified; Z51.5 Encounter for palliative care; T73.0XXA Starvation, initial encounter; F32.9 Major depressive disorder, single episode, unspecified; E87.6 Hypokalemia; E83.42 Hypomagnesemia; D72.829 Elevated white blood cell count, unspecified; E86.0 Dehydration; Z91.14 Patient's other noncompliance with medication regimen; I69.320 Aphasia following cerebral infarction; I10 Essential (primary) hypertension; E11.9 Type 2 diabetes mellitus without complications; G89.29 Other chronic pain; F17.200 Nicotine dependence, unspecified, uncomplicated; F12.10 Cannabis abuse, uncomplicated; R63.6 Underweight; Z68.20 Body mass index [BMI] 20.0-20.9, adult; Z66 Do not resuscitate; Z88.5 Allergy status to narcotic agent; Y99.8 Other external cause status; X78.1XXA Intentional self-harm by knife, initial encounter

== ENCOUNTER 2018-08-18 22:30 | Inpatient (IN) ==
[2018-08-18] MEDS ORDERED: SODIUM CHLORIDE 0.9% 1000ML 1,000 ML IV ONE (23:08)
[2018-08-19 00:13] LABS: Albumin Level 4.2 gm/dl (3.4-5.0); BUN Creatinine Ratio 10.7 (10-20); Calcium 8.9 mg/dl (8.5-10.1); Creatinine Clr Calc Pharmacy 62.4 ml/min; Est GFR (African American) 79.5; Est GFR (Non-African American) 68.6; Magnesium 1.7 mg/dl (1.8-2.4); Potassium 3.5 mmol/L (3.5-5.1)
[2018-08-19 00:16] LABS: Appearance Urine Clear (Clear); Bilirubin Urine Negative (Negative); Blood Urine Negative (Negative); Color Urine Yellow; Glucose Urine UA Negative (Negative); Ketones Urine Negative (Negative); Leukocyte Esterase Urine Negative (Negative); Nitrite Urine Negative (Negative); Protein Urine Negative (Negative); Urobilinogen Urine Negative (Negative); pH Urine 5.5 (4.5-7.5)
[2018-08-19 00:22] LABS: Acetaminophen < 2 ug/ml (10-30); Salicylate 2.9 mg/dl (2.8-20)
[2018-08-19 00:24] LABS: Albumin Globulin Ratio 1.8 (0.9-2); Bilirubin,Total 0.8 mg/dl (0.2-1); Globulin 2.4 gm/dl (2.5-4.0); Total Protein 6.6 gm/dl (6.4-8.2)
[2018-08-19 00:42] LABS: Amphetamines+Metham, Urine Neg (Neg); Barbiturates, Urine Neg (Neg); Benzodiazepine, Urine Neg (Neg); Cocaine, Urine Neg (Neg); MDMA (Ecstacy), Urine Neg (Neg); Methadone, Urine Neg (Neg); Opiate, Urine Neg (Neg); Phencyclidine, Urine Neg (Neg)
[2018-08-19 00:59] LABS: Hematocrit (blood only) 36.9 % (42-52); Hemoglobin 14.1 g/dL (14.0-18.0); Mean Corpuscular Hgb Conc 38.2 g/dL (32-36); Mean Corpuscular Volume 84.1 fL (80-100); Mean Platelet Volume 11.1 fL (7.4-10.4); Platelet Count 176 K/uL (130-400); RDW Coefficient of Variation 12.1 % (11.5-14.5); RDW Standard Deviation 37.1 fL (36.4-46.3); Red Blood Count 4.39 M/uL (4.7-6.1); White Blood Count 7.96 K/uL (4.8-10.8)
[2018-08-19 01:00] LABS: Basophils # (auto) 0.02 K/uL (0-0.2); Basophils % (auto) 0.3 %; Eosinophils # (auto) 0.03 K/uL (0-0.5); Eosinophils % (auto) 0.4 %; Immature Granulocytes # (auto) 0.02 K/uL (0.00-0.02); Immature Granulocytes % (auto) 0.3 %; Lymphocytes # (auto) 2.75 K/uL (1.2-3.4); Lymphocytes % (auto) 34.5 %; Monocytes # (auto) 1.11 K/uL (0.11-0.59); Monocytes % (auto) 13.9 %; Neutrophils # (auto) 4.03 K/uL (1.4-6.5); Neutrophils % (auto) 50.6 %; RBC Morphology Unremarkable
--- NOTE | 2018-08-19 02:32 | Emergency Department Note ---
Entered by Zarina Parish acting as a scribe for History of Present Illness General Chief complaint: Illness Stated complaint: NOT EATING, DEPRESSION Time Seen by Provider: 08/18/18 23:02 Source: friends (Caregiver) Limitations: other (baseline neurological problems) History of Present Illness Onset (ago): month(s) 2 Location: head (Depression) Pain Consistency: + other (Persistent) Maximum Pain Intensity: 5 Quality: + other (Depression) Associated symptoms: + loss of appetite and + weakness; no other (Overdose, recent falls) The patient is a 52 year old male presenting to the Emergency Department complaining of persistent depression starting 2 months ago. The history is pr ovided with the aid of his caregiver and a white board. The patients friend/caregiver reports that the patient has expressed desire to end it all. He states that the patient has not been eating or drinking for the past 2 months. He explains that the patient is aphasic and has permanent right-sided weakness from a stroke that the patient suffered from about 10 years ago. He notes that the patient is not currently on hospice. He adds that the patient wants to throw in the towel. The patients caregiver reports that the patient wants to be admitted to a halfway facility. He states that a hospice nurse told himself and the patient in order to start that process they would need to come into the ED for evaluation. The caregiver explains that the patient has not tried to hurt himself by overdosing on his daily medication. He denies that the patient has had any recent falls. The HPI and ROS are limited due to baseline neurological problems. Home Medications Home Medications Medication Instructions Recorded Confirmed Type bisacodyl 10 mg LA DAILY PRN 01/12/18 08/18/18 History methocarbamol 500 mg PO QID PRN 01/12/18 08/18/18 History ondansetron HCl [Zofran] 4 mg PO Q6H PRN 01/12/18 08/18/18 History pantoprazole 40 mg PO BID 01/12/18 08/18/18 History polyethylene glycol 3350 [Miralax] 17 g PO DAILY 01/12/18 08/18/18 History acetaminophen ER 650 mg 650 mg PO TID tab 08/07/18 08/18/18 History tablet,extended release quetiapine 25 mg tablet 12.5 mg PO TID tab 08/07/18 08/18/18 History escitalopram oxalate 5 mg PO DAILY 08/18/18 08/18/18 History lisinopril 20 mg PO DAILY 08/18/18 08/18/18 History tramadol 50 mg PO QID 08/18/18 08/18/18 History Allergies Allergy/AdvReac Type Severity Reaction Status Date / Time codeine Allergy Mild HIVES Verified 08/18/18 22:48 Past Med/Surg History Medical History Seizure disorder (Acute) Polyneuropathy (Acute) Hypertension (Acute) Hypercholesterolemia (Acute) Hemiparesis, right (Acute) GERD without esophagitis (Acute) Expressive aphasia (Acute) Chronic prostatitis (Acute) Cervical radiculopathy at C7 (Acute) Back pain (Acute) Anemia (Acute) Anticoagulant therapy (Chronic Unknown) Cardiomyopathy (Chronic Unknown) "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% " On 08/13/12 05:02 J Luis Torres wrote "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% " Ischemic stroke (Resolved Unknown) "left MCA received TPA echo- LV mural thrombus residual right hemiparesis + aphasia " Seizure (Chronic Unknown) Suicide attempt (Acute Unknown) Status epilepticus, generalized convulsive (Acute 07/09/13) ARF (acute renal failure) (Acute 02/22/14) CVA (cerebral vascular accident) (Resolved) Aphasia (Chronic) Anxiety Depression (Acute) ARF (acute renal failure) (Resolved 02/03/14) Arterial ischemic stroke, MCA (middle cerebral artery), left, chronic (Resolved) Breakthrough seizure (Resolved) Change in mental status (Resolved) Hemiparesis (Resolved Unknown) "right hemiparesis " On 08/13/12 00:17 Ham Jacobs wrote "right hemiparesis " Hemorrhagic shock (Resolved) Hyperammonemia (Resolved) Hyperkalemia (Resolved) Hypomagnesemia (Resolved) Hyponatremia (Resolved Unknown) Hypoxia (Resolved 02/22/14) Left shoulder pain (Resolved) Leg fracture, right (Resolved) Metabolic encephalopathy (Resolved 03/21/14) Seizure (Resolved) Shoulder pain (Resolved) Sepsis (Unknown) Family History Other No significant family history Social History Preferred Language: [place] Communication Ability: aphasia Beliefs That Will Affect Care: None Current Living Situation: Other Current Living Situation Comment: [facility] [place] Feels Safe at Home: Yes Smoking Status: Current every day smoker Cigarettes Per Day: 2 Second Hand Exposure: No Hx Alcohol Use: Yes Hx Substance Use: Yes (+ marijuana on toxicology) substance use type: marijuana Review of Systems The HPI and ROS are limited due to baseline neurological problems. Physical Exam Vital Signs Vital Signs - 24 hr 08/18/18 22:32 08/18/18 22:59 08/19/18 00:05 Temperature 37.1 C Temperature Source Oral Sepsis Recent Fever Within 48 Hours No Sepsis Action Taken by Nursing No Action Required Pulse Rate 110 H Pulse Rate [Left Finger] 100 H 88 Pulse Rhythm Regular Pulse Rhythm [Left Finger] Regular Pulse Strength Normal Respiratory Rate 18 20 24 Respiratory Effort / Characteristics Non-Labored Spontaneous Non-Labored Non-Labored Respiratory Depth Normal Normal Normal Respiratory Pattern Regular Regular Regular Blood Pressure 122/88 Blood Pressure [Left Arm] 142/96 H 142/93 H Blood Pressure Mean 99 Blood Pressure Mean [Left Arm] 111 109 Pulse Oximetry 97 96 96 Oxygen Delivery Method Room Air Room Air Room Air 08/19/18 00:30 08/19/18 01:30 08/19/18 02:23 Temperature Temperature Source Sepsis Recent Fever Within 48 Hours Sepsis Action Taken by Nursing Pulse Rate Pulse Rate [Left Finger] 73 75 75 Pulse Rhythm Pulse Rhythm [Left Finger] Pulse Strength Respiratory Rate 18 15 20 Respiratory Effort / Characteristics Non-Labored Non-Labored Non-Labored Respiratory Depth Normal Normal Normal Respiratory Pattern Regular Regular Regular Blood Pressure Blood Pressure [Left Arm] 134/85 140/90 136/87 Blood Pressure Mean Blood Pressure Mean [Left Arm] 101 106 103 Pulse Oximetry 93 94 93 Oxygen Delivery Method Room Air Room Air Room Air EYES: Conjunctivae and EOM are normal. Pupils are equal, round, and reactive to light. Right eye exhibits no discharge. Left eye exhibits no discharge. No scleral icterus. NECK: Normal range of motion. Neck supple. No JVD present. No spinous process tenderness present. No carotid bruit present. No rigidity. No tracheal deviation and normal range of motion present. No Brudzinski's sign and no Kernig's sign noted. CV: Normal rate, regular rhythm, normal heart sounds and intact distal pulses. There is no peripheral edema. Palpable radial pulses bue. PULM/CHEST: Effort normal and breath sounds normal. No respiratory distress. No stridor. He has no wheezes. He has no rales. - Chest Wall: He exhibits no tenderness. ABD: The abdomen is soft and non-tender. NEURO: Aphasic. Right-sided weakness. baseline for patient. SKIN: Skin is warm and dry. He is not diaphoretic. Course 2302: EMR reviewed. Patient has a history of seizure, acute renal failure, stoke, depression. The patient was evaluated in room A10, and a complete history and physical examination were performed. 0103: Vital signs stable. Labs show sodium of 125. I discussed the patients case with Dr. Feliz ARBOLEDA Hospitalist. She will evaluate the patient for further management. Consultations Consultation #1: I discussed the patients case with Dr. Feliz ARBOLEDA Hospitalist. She will evaluate the patient for further management. Time: 01:03 Administered Medications Discontinued Medications Sodium Chloride (Nss 1000ml) 1,000 mls @ 999 mls/hr IV .Q1H1M ONE Stop: 08/19/18 00:08 Last Infusion: 08/19/18 01:26 Dose: 0 mls/hr Documented by: [id number] Admin: 08/19/18 00:04 Dose: 999 mls/hr Documented by: [id number] Medical Decision Making Medical Records Attestation: I reviewed the patient's medical records. Home Medications Current Medication List: was personally reviewed by me Laboratory Data Attestation: I reviewed the patient's lab results. Result diagrams: 08/18/18 23:39 08/18/18 23:39 Lab Results 08/18/18 08/18/18 08/18/18 Range/Units 23:39 23:39 23:39 WBC 7.96 (4.8-10.8) K/uL RBC 4.39 L (4.7-6.1) M/uL Hgb 14.1 (14.0-18.0) g/dL Hct 36.9 L (42-52) % MCV 84.1 (80-100) fL MCH 32.1 (25-34) pg MCHC 38.2 H (32-36) g/dL RDW Std Deviation 37.1 (36.4-46.3) fL RDW Coeff of Yadira 12.1 (11.5-14.5) % Plt Count 176 (130-400) K/uL MPV 11.1 H (7.4-10.4) fL Immature Gran % (Auto) 0.3 % Neut % (Auto) 50.6 % Lymph % (Auto) 34.5 % Marion % (Auto) 13.9 % Eos % (Auto) 0.4 % Baso % (Auto) 0.3 % Immature Gran # (Auto) 0.02 (0.00-0.02) K/uL Neut # (Auto) 4.03 (1.4-6.5) K/uL Lymph # (Auto) 2.75 (1.2-3.4) K/uL Marion # (Auto) 1.11 H (0.11-0.59) K/uL Eos # (Auto) 0.03 (0-0.5) K/uL Baso # (Auto) 0.02 (0-0.2) K/uL RBC Morphology Unremarkable Sodium 125 L (136-145) mmol/L Potassium 3.5 (3.5-5.1) mmol/L Chloride 87 L (98-107) mmol/L Carbon Dioxide 30 (21-32) mmol/L Anion Gap 8.0 (3-11) BUN 13 (7-18) mg/dl Creatinine 1.20 (0.6-1.4) mg/dl Est Cr Clr Drug Dosing 62.4 ml/min Est GFR ( Amer) 79.5 Est GFR (Non-Af Amer) 68.6 BUN/Creatinine Ratio 10.7 (10-20) Glucose 96 (70-99) mg/dl POC Glucose (70-99) Calcium 8.9 (8.5-10.1) mg/dl Magnesium 1.7 L (1.8-2.4) mg/dl Total Bilirubin 0.8 (0.2-1) mg/dl AST 13 L (15-37) U/L ALT 16 (12-78) U/L Alkaline Phosphatase 48 (45-117) U/L Total Protein 6.6 (6.4-8.2) gm/dl Albumin 4.2 (3.4-5.0) gm/dl Globulin 2.4 L (2.5-4.0) gm/dl Albumin/Globulin Ratio 1.8 (0.9-2) TSH 0.887 (0.300-4.500) uIu/ml Urine Color Urine Appearance (Clear) Urine pH (4.5-7.5) Ur Specific [place] (1.000-1.030) Urine Protein (Negative) Urine Glucose (UA) (Negative) Urine Ketones (Negative) Urine Blood (Negative) Urine Nitrite (Negative) Urine Bilirubin (Negative) Urine Urobilinogen (Negative) Ur Leukocyte Esterase (Negative) Salicylates 2.9 (2.8-20) mg/dl Urine Opiates Screen (Neg) Ur Methadone, Qual (Neg) Acetaminophen < 2 L (10-30) ug/ml Urine Barbiturates (Neg) Ur Phencyclidine (PCP) (Neg) U Amphetamin/Meth Scrn (Neg) MDMA (Ecstasy) Screen (Neg) U Benzodiazepines Scrn (Neg) Ur Cocaine Metabolite (Neg) U Marijuana (THC) Screen (Neg) Ethyl Alcohol mg/dL (0-3) mg/dl 08/18/18 08/18/18 08/19/18 Range/Units 23:39 23:40 00:06 WBC (4.8-10.8) K/uL RBC (4.7-6.1) M/uL Hgb (14.0-18.0) g/dL Hct (42-52) % MCV (80-100) fL MCH (25-34) pg MCHC (32-36) g/dL RDW Std Deviation (36.4-46.3) fL RDW Coeff of Yadira (11.5-14.5) % Plt Count (130-400) K/uL MPV (7.4-10.4) fL Immature Gran % (Auto) % Neut % (Auto) % Lymph % (Auto) % Marion % (Auto) % Eos % (Auto) % Baso % (Auto) % Immature Gran # (Auto) (0.00-0.02) K/uL Neut # (Auto) (1.4-6.5) K/uL Lymph # (Auto) (1.2-3.4) K/uL Marion # (Auto) (0.11-0.59) K/uL Eos # (Auto) (0-0.5) K/uL Baso # (Auto) (0-0.2) K/uL RBC Morphology Sodium (136-145) mmol/L Potassium (3.5-5.1) mmol/L Chloride (98-107) mmol/L Carbon Dioxide (21-32) mmol/L Anion Gap (3-11) BUN (7-18) mg/dl Creatinine (0.6-1.4) mg/dl Est Cr Clr Drug Dosing ml/min Est GFR ( Amer) Est GFR (Non-Af Amer) BUN/Creatinine Ratio (10-20) Glucose (70-99) mg/dl POC Glucose 116 H (70-99) Calcium (8.5-10.1) mg/dl Magnesium (1.8-2.4) mg/dl Total Bilirubin (0.2-1) mg/dl AST (15-37) U/L ALT (12-78) U/L Alkaline Phosphatase (45-117) U/L Total Protein (6.4-8.2) gm/dl Albumin (3.4-5.0) gm/dl Globulin (2.5-4.0) gm/dl Albumin/Globulin Ratio (0.9-2) TSH (0.300-4.500) uIu/ml Urine Color Urine Appearance (Clear) Urine pH (4.5-7.5) Ur Specific [place] (1.000-1.030) Urine Protein (Negative) Urine Glucose (UA) (Negative) Urine Ketones (Negative) Urine Blood (Negative) Urine Nitrite (Negative) Urine Bilirubin (Negative) Urine Urobilinogen (Negative) Ur Leukocyte Esterase (Negative) Salicylates (2.8-20) mg/dl Urine Opiates Screen Neg (Neg) Ur Methadone, Qual Neg (Neg) Acetaminophen (10-30) ug/ml Urine Barbiturates Neg (Neg) Ur Phencyclidine (PCP) Neg (Neg) U Amphetamin/Meth Scrn Neg (Neg) MDMA (Ecstasy) Screen Neg (Neg) U Benzodiazepines Scrn Neg (Neg) Ur Cocaine Metabolite Neg (Neg) U Marijuana (THC) Screen Pos H (Neg) Ethyl Alcohol mg/dL < 3.0 (0-3) mg/dl 08/19/18 Range/Units 00:06 WBC (4.8-10.8) K/uL RBC (4.7-6.1) M/uL Hgb (14.0-18.0) g/dL Hct (42-52) % MCV (80-100) fL MCH (25-34) pg MCHC (32-36) g/dL RDW Std Deviation (36.4-46.3) fL RDW Coeff of Yadira (11.5-14.5) % Plt Count (130-400) K/uL MPV (7.4-10.4) fL Immature Gran % (Auto) % Neut % (Auto) % Lymph % (Auto) % Marion % (Auto) % Eos % (Auto) % Baso % (Auto) % Immature Gran # (Auto) (0.00-0.02) K/uL Neut # (Auto) (1.4-6.5) K/uL Lymph # (Auto) (1.2-3.4) K/uL Marion # (Auto) (0.11-0.59) K/uL Eos # (Auto) (0-0.5) K/uL Baso # (Auto) (0-0.2) K/uL RBC Morphology Sodium (136-145) mmol/L Potassium (3.5-5.1) mmol/L Chloride (98-107) mmol/L Carbon Dioxide (21-32) mmol/L Anion Gap (3-11) BUN (7-18) mg/dl Creatinine (0.6-1.4) mg/dl Est Cr Clr Drug Dosing ml/min Est GFR ( Amer) Est GFR (Non-Af Amer) BUN/Creatinine Ratio (10-20) Glucose (70-99) mg/dl POC Glucose (70-99) Calcium (8.5-10.1) mg/dl Magnesium (1.8-2.4) mg/dl Total Bilirubin (0.2-1) mg/dl AST (15-37) U/L ALT (12-78) U/L Alkaline Phosphatase (45-117) U/L Total Protein (6.4-8.2) gm/dl Albumin (3.4-5.0) gm/dl Globulin (2.5-4.0) gm/dl Albumin/Globulin Ratio (0.9-2) TSH (0.300-4.500) uIu/ml Urine Color Yellow Urine Appearance Clear (Clear) Urine pH 5.5 (4.5-7.5) Ur Specific [place] 1.010 (1.000-1.030) Urine Protein Negative (Negative) Urine Glucose (UA) Negative (Negative) Urine Ketones Negative (Negative) Urine Blood Negative (Negative) Urine Nitrite Negative (Negative) Urine Bilirubin Negative (Negative) Urine Urobilinogen Negative (Negative) Ur Leukocyte Esterase Negative (Negative) Salicylates (2.8-20) mg/dl Urine Opiates Screen (Neg) Ur Methadone, Qual (Neg) Acetaminophen (10-30) ug/ml Urine Barbiturates (Neg) Ur Phencyclidine (PCP) (Neg) U Amphetamin/Meth Scrn (Neg) MDMA (Ecstasy) Screen (Neg) U Benzodiazepines Scrn (Neg) Ur Cocaine Metabolite (Neg) U Marijuana (THC) Screen (Neg) Ethyl Alcohol mg/dL (0-3) mg/dl Blood Pressure Blood Pressure Findings: Normal blood pressure Blood Pressure Disposition: further management by hospitalist MDM Narrative Vital signs stable. Labs show sodium of 125. I discussed the patients case with Dr. Feliz ARBOLEDA Hospitalist. She will evaluate the patient for further management. Impression & Plan Hyponatremia Discharge Plan Visit Data Chief Complaint: Illness Stated Complaint: NOT EATING, DEPRESSION ED Provider: Rickie Elkins Discharge Problem: Hyponatremia Patient Disposition: Being Evaluated by Hospitalist Forms Stand Alone Forms: My [facility] Prescriptions Prescriptions: No Action acetaminophen 650 mg tablet extended release 650 mg PO TID RF: 0 quetiapine 25 mg tablet 12.5 mg PO TID RF: 0 bisacodyl 10 mg Suppository 10 mg LA DAILY PRN (Reason: Constipation) RF: 0 methocarbamol 500 mg Tablet 500 mg PO QID PRN (Reason: muscle spasms) RF: 0 ondansetron HCl [Zofran] 4 mg Tablet 4 mg PO Q6H PRN (Reason: nausea/vomiting) RF: 0 polyethylene glycol 3350 [Miralax] 17 gram Powder In Packet 17 g PO DAILY RF: 0 pantoprazole 40 mg Tablet,Delayed Release (Dr/Ec) 40 mg PO BID RF: 0 lisinopril 20 mg tablet 20 mg PO DAILY RF: 0 tramadol 50 mg tablet 50 mg PO QID RF: 0 escitalopram oxalate 5 mg tablet 5 mg PO DAILY RF: 0 Referrals Referrals: Meghan Dewitt MD [Primary Care Provider] - The scribe's documentation has been prepared under my direction and personally reviewed by me in its entirety. I confirm that the note above accurately reflects all work, treatment, procedures, and medical decision making performed by me.
--- NOTE | 2018-08-19 02:42 | History & Physical Report ---
Date of Service August 19, 2018 Assessment & Plan (1) Depression: 52-year-old male was admitted on 19 August 2018 for depression, decreased p.o. intake, and hyponatremia. Depression: By reports, is chronic over many months at a minimum. He denies any acute physical complaints. No caregiver reports of eminently suicidal behaviors recently. - See most recent available palliative care note from 12Jan2018. Mentions patient had been discharged from hospice. Notes previous episode where patient purposefully stopped eating around September 2017 as well. [id number] palliative note mentions this a.m. that "these current wishes are consistent with prior statement several months ago when he was not depressed. Had a previous suicide attempt in Sep 2017. - We will continue home escitalopram and quetiapine. Palliative care consult. Hyponatremia, hypomagnesemia: Admit sodium 125, suspect of chronic duration. Admit magnesium 1.7. UA negative. - In ED, afebrile, initially tachycardic but resolved with fluids, mildly hypertensive, normal room SpO2. - In ED, given 1 L of 0.9% normal saline. - Will continue on maintenance NS IVF for slow correction. Replace Mg as well. Recheck BMP in AM. Will place on thiamine 100 mg PO daily as a precaution. Ongoing medical issues: - Hypertension, hyperlipidemia: Continue home lisinopril. - Constipation: Continue home bisacodyl and MiraLAX. - GERD: Continue home pantoprazole and Reglan. - Right shoulder pain: Continue home scheduled Tylenol as well as tramadol and Robaxin as needed. - Arterial ischemic stroke: Right-sided hemiparesis and left-sided weakness, receptive and expressive aphasia. - Cardiomyopathy: Reportedly as low as EF 25%. Most recent available echo in December 2017 noted EF 45-50% with some regional wall motion abnormalities. - Seizures: By report, has been off medication for this due to previous hospice care. - Alcoholism: Admit ethyl alcohol level < 3. - Polysubstance abuse: Tobacco, alcohol, and marijuana. Admit UDS positive for marijuana. Code status: DO NOT RESUSCITATE. Diet: Full liquid diet. DVT prophy: Lovenox. PT/OT: Deferred. Disbo: Admit to medsur. (2) Hyponatremia: (3) Hypomagnesemia: (4) Hypertension: (5) Hypercholesterolemia: (6) Constipation: (7) GERD without esophagitis: (8) Right shoulder pain: (9) Ischemic stroke: (10) History of cardiomyopathy: (11) History of seizures: (12) History of alcoholism: History of Present Illness Primary Care Provider: Meghan Dewitt MD 52-year-old male reports the emergency department wishing to go on hospice. Please see the ED visit note for discussions with the patient's caregiver who is not present at the time of this H&P. In brief summary of that note, patient has not been eating or drinking much for the past two months, presently he "wants to throw in the towel", and apparently start the process of hospice via nursing facility he needs to be seen in the ED for evaluation. He has been hospitalized for similar wishes including a similar hunger strike as well as suicide attempt back in September 2017. Patient has a noted history of ischemic stroke resulting in receptive and expressive aphasia as well as right-sided hemiparesis. For this H&P, the subjective was obtained almost entirely via the use of a white dry erase board. He stated that he wanted to go on hospice but that he did not have any acute needs. Patient stated overall that he was not in any discomfort. When asked if he had any abdominal discomfort, he said a little but that it was okay. When asked he does say he has seen palliative care (Dr. Dewitt) within the past month. Past medical history includes depression, hypertension, hyperlipidemia, constipation, GERD, right shoulder pain, ischemic stroke, alcoholism, polysubstance abuse, cardiomyopathy, seizures. Allergies Allergy/AdvReac Type Severity Reaction Status Date / Time codeine Allergy Mild HIVES Verified 08/18/18 22:48 Home Medications Home Medications Medication Instructions Recorded Confirmed Type bisacodyl 10 mg [place] DAILY PRN 01/12/18 08/18/18 History methocarbamol 500 mg PO QID PRN 01/12/18 08/18/18 History ondansetron HCl [Zofran] 4 mg PO Q6H PRN 01/12/18 08/18/18 History pantoprazole 40 mg PO BID 01/12/18 08/18/18 History polyethylene glycol 3350 [Miralax] 17 g PO DAILY 01/12/18 08/18/18 History acetaminophen ER 650 mg 650 mg PO TID tab 08/07/18 08/18/18 History tablet,extended release quetiapine 25 mg tablet 12.5 mg PO TID tab 08/07/18 08/18/18 History escitalopram oxalate 5 mg PO DAILY 08/18/18 08/18/18 History lisinopril 20 mg PO DAILY 08/18/18 08/18/18 History tramadol 50 mg PO QID 08/18/18 08/18/18 History Past Med/Surg History Medical History Seizure disorder (Acute) Polyneuropathy (Acute) Hypertension (Acute) Hypercholesterolemia (Acute) Hemiparesis, right (Acute) GERD without esophagitis (Acute) Expressive aphasia (Acute) Chronic prostatitis (Acute) Cervical radiculopathy at C7 (Acute) Back pain (Acute) Anemia (Acute) Anticoagulant therapy (Chronic Unknown) Cardiomyopathy (Chronic Unknown) "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% " On 08/13/12 05:02 J Luis Torres wrote "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% " Ischemic stroke (Resolved Unknown) "left MCA received TPA echo- LV mural thrombus residual right hemiparesis + aphasia " Seizure (Chronic Unknown) Suicide attempt (Acute Unknown) Status epilepticus, generalized convulsive (Acute 07/09/13) ARF (acute renal failure) (Acute 02/22/14) CVA (cerebral vascular accident) (Resolved) Aphasia (Chronic) Anxiety Depression (Acute) ARF (acute renal failure) (Resolved 02/03/14) Arterial ischemic stroke, MCA (middle cerebral artery), left, chronic (Resolved) Breakthrough seizure (Resolved) Change in mental status (Resolved) Hemiparesis (Resolved Unknown) "right hemiparesis " On 08/13/12 00:17 Ham Jacobs wrote "right hemiparesis " Hemorrhagic shock (Resolved) Hyperammonemia (Resolved) Hyperkalemia (Resolved) Hypomagnesemia (Resolved) Hyponatremia (Resolved Unknown) Hypoxia (Resolved 02/22/14) Left shoulder pain (Resolved) Leg fracture, right (Resolved) Metabolic encephalopathy (Resolved 03/21/14) Seizure (Resolved) Shoulder pain (Resolved) Sepsis (Unknown) Family History Other No significant family history Social History Preferred Language: Senegalese Communication Ability: aphasia Beliefs That Will Affect Care: None Current Living Situation: Other Current Living Situation Comment: [facility] Feels Safe at Home: Yes Smoking Status: Current every day smoker Cigarettes Per Day: 2 Second Hand Exposure: No Hx Alcohol Use: Yes Hx Substance Use: Yes (+ marijuana on toxicology) substance use type: marijuana Review of Systems Review of Systems: Unable to obtain ROS due to receptive and expressive aphasia. Physical Exam Physical Exam: GENERAL: Awake, alert, generally well-appearing but thin habitus, does not appear in immediate distress. HENT: Normocephalic, atraumatic. Oropharynx mildly dry. EYES: Normal conjunctiva. Sclera non-icteric. NECK: Inspection normal. Non-tender. Supple and full ROM. CARDIAC: +S1S2 RRR, no murmurs. RESPIRATORY: Clear to auscultation. No wheezes or rales. Normal respiratory effort. GI: +BS, soft, non-distended. Questionable mild diffuse tenderness to palpation. No rebound or guarding. EXTREMITIES: No pedal edema bilaterally or left calf tenderness. NEURO: Noted receptive and expressive aphasia on attempts at verbal conversation. Does much better with understanding of written text. Right-sided hemiparesis. Good supervisor spring up strength and can write with left arm. Results & Data Vital Signs (Past 12 Hours) Vital Signs Temp Pulse Pulse Resp BP BP Pulse Ox 08/19/18 02:23 75 20 136/87 93 08/19/18 01:30 75 15 140/90 94 08/19/18 00:30 73 18 134/85 93 08/19/18 00:05 88 24 142/93 H 96 08/18/18 22:59 100 H 20 142/96 H 96 08/18/18 22:32 37.1 C 110 H 18 122/88 97 Laboratory Results 08/19/18 08/19/18 08/19/18 Range/Units 00:06 00:06 00:06 WBC (4.8-10.8) K/uL RBC (4.7-6.1) M/uL Hgb (14.0-18.0) g/dL Hct (42-52) % MCV (80-100) fL MCH (25-34) pg MCHC (32-36) g/dL RDW Std Deviation (36.4-46.3) fL RDW Coeff of Yadira (11.5-14.5) % Plt Count (130-400) K/uL MPV (7.4-10.4) fL Immature Gran % (Auto) % Neut % (Auto) % Lymph % (Auto) % Glad[place] % (Auto) % Eos % (Auto) % Baso % (Auto) % Immature Gran # (Auto) (0.00-0.02) K/uL Neut # (Auto) (1.4-6.5) K/uL Lymph # (Auto) (1.2-3.4) K/uL Gladwin # (Auto) (0.11-0.59) K/uL Eos # (Auto) (0-0.5) K/uL Baso # (Auto) (0-0.2) K/uL RBC Morphology Sodium (136-145) mmol/L Potassium (3.5-5.1) mmol/L Chloride (98-107) mmol/L Carbon Dioxide (21-32) mmol/L Anion Gap (3-11) BUN (7-18) mg/dl Creatinine (0.6-1.4) mg/dl Est Cr Clr Drug Dosing ml/min Est GFR ( Amer) Est GFR (Non-Af Amer) BUN/Creatinine Ratio (10-20) Glucose (70-99) mg/dl POC Glucose (70-99) Calcium (8.5-10.1) mg/dl Magnesium (1.8-2.4) mg/dl Total Bilirubin (0.2-1) mg/dl AST (15-37) U/L ALT (12-78) U/L Alkaline Phosphatase (45-117) U/L Total Protein (6.4-8.2) gm/dl Albumin (3.4-5.0) gm/dl Globulin (2.5-4.0) gm/dl Albumin/Globulin Ratio (0.9-2) TSH (0.300-4.500) uIu/ml Urine Color Yellow Urine Appearance Clear (Clear) Urine pH 5.5 (4.5-7.5) Ur Specific Sed[place] 1.010 (1.000-1.030) Urine Protein Negative (Negative) Urine Glucose (UA) Negative (Negative) Urine Ketones Negative (Negative) Urine Blood Negative (Negative) Urine Nitrite Negative (Negative) Urine Bilirubin Negative (Negative) Urine Urobilinogen Negative (Negative) Ur Leukocyte Esterase Negative (Negative) Salicylates (2.8-20) mg/dl Urine Opiates Screen Neg (Neg) Ur Methadone, Qual Neg (Neg) Acetaminophen (10-30) ug/ml Urine Barbiturates Neg (Neg) Ur Phencyclidine (PCP) Neg (Neg) U Amphetamin/Meth Scrn Neg (Neg) MDMA (Ecstasy) Screen Neg (Neg) U Benzodiazepines Scrn Neg (Neg) Ur Cocaine Metabolite Neg (Neg) U Marijuana (THC) Screen Pos H (Neg) U Marijuana THC Carboxy Pending Ethyl Alcohol mg/dL (0-3) mg/dl 08/18/18 08/18/18 08/18/18 Range/Units 23:40 23:39 23:39 WBC (4.8-10.8) K/uL RBC (4.7-6.1) M/uL Hgb (14.0-18.0) g/dL Hct (42-52) % MCV (80-100) fL MCH (25-34) pg MCHC (32-36) g/dL RDW Std Deviation (36.4-46.3) fL RDW Coeff of Yadira (11.5-14.5) % Plt Count (130-400) K/uL MPV (7.4-10.4) fL Immature Gran % (Auto) % Neut % (Auto) % Lymph % (Auto) % Gladwin % (Auto) % Eos % (Auto) % Baso % (Auto) % Immature Gran # (Auto) (0.00-0.02) K/uL Neut # (Auto) (1.4-6.5) K/uL Lymph # (Auto) (1.2-3.4) K/uL Gladwin # (Auto) (0.11-0.59) K/uL Eos # (Auto) (0-0.5) K/uL Baso # (Auto) (0-0.2) K/uL RBC Morphology Sodium (136-145) mmol/L Potassium (3.5-5.1) mmol/L Chloride (98-107) mmol/L Carbon Dioxide (21-32) mmol/L Anion Gap (3-11) BUN (7-18) mg/dl Creatinine (0.6-1.4) mg/dl Est Cr Clr Drug Dosing ml/min Est GFR ( Amer) Est GFR (Non-Af Amer) BUN/Creatinine Ratio (10-20) Glucose (70-99) mg/dl POC Glucose 116 H (70-99) Calcium (8.5-10.1) mg/dl Magnesium (1.8-2.4) mg/dl Total Bilirubin (0.2-1) mg/dl AST (15-37) U/L ALT (12-78) U/L Alkaline Phosphatase (45-117) U/L Total Protein (6.4-8.2) gm/dl Albumin (3.4-5.0) gm/dl Globulin (2.5-4.0) gm/dl Albumin/Globulin Ratio (0.9-2) TSH (0.300-4.500) uIu/ml Urine Color Urine Appearance (Clear) Urine pH (4.5-7.5) Ur Specific Sed[place] (1.000-1.030) Urine Protein (Negative) Urine Glucose (UA) (Negative) Urine Ketones (Negative) Urine Blood (Negative) Urine Nitrite (Negative) Urine Bilirubin (Negative) Urine Urobilinogen (Negative) Ur Leukocyte Esterase (Negative) Salicylates 2.9 (2.8-20) mg/dl Urine Opiates Screen (Neg) Ur Methadone, Qual (Neg) Acetaminophen < 2 L (10-30) ug/ml Urine Barbiturates (Neg) Ur Phencyclidine (PCP) (Neg) U Amphetamin/Meth Scrn (Neg) MDMA (Ecstasy) Screen (Neg) U Benzodiazepines Scrn (Neg) Ur Cocaine Metabolite (Neg) U Marijuana (THC) Screen (Neg) U Marijuana THC Carboxy Ethyl Alcohol mg/dL < 3.0 (0-3) mg/dl 08/18/18 08/18/18 Range/Units 23:39 23:39 WBC 7.96 (4.8-10.8) K/uL RBC 4.39 L (4.7-6.1) M/uL Hgb 14.1 (14.0-18.0) g/dL Hct 36.9 L (42-52) % MCV 84.1 (80-100) fL MCH 32.1 (25-34) pg MCHC 38.2 H (32-36) g/dL RDW Std Deviation 37.1 (36.4-46.3) fL RDW Coeff of Yadira 12.1 (11.5-14.5) % Plt Count 176 (130-400) K/uL MPV 11.1 H (7.4-10.4) fL Immature Gran % (Auto) 0.3 % Neut % (Auto) 50.6 % Lymph % (Auto) 34.5 % Gladwin % (Auto) 13.9 % Eos % (Auto) 0.4 % Baso % (Auto) 0.3 % Immature Gran # (Auto) 0.02 (0.00-0.02) K/uL Neut # (Auto) 4.03 (1.4-6.5) K/uL Lymph # (Auto) 2.75 (1.2-3.4) K/uL Glad[place] # (Auto) 1.11 H (0.11-0.59) K/uL Eos # (Auto) 0.03 (0-0.5) K/uL Baso # (Auto) 0.02 (0-0.2) K/uL RBC Morphology Unremarkable Sodium 125 L (136-145) mmol/L Potassium 3.5 (3.5-5.1) mmol/L Chloride 87 L (98-107) mmol/L Carbon Dioxide 30 (21-32) mmol/L Anion Gap 8.0 (3-11) BUN 13 (7-18) mg/dl Creatinine 1.20 (0.6-1.4) mg/dl Est Cr Clr Drug Dosing 62.4 ml/min Est GFR ( Amer) 79.5 Est GFR (Non-Af Amer) 68.6 BUN/Creatinine Ratio 10.7 (10-20) Glucose 96 (70-99) mg/dl POC Glucose (70-99) Calcium 8.9 (8.5-10.1) mg/dl Magnesium 1.7 L (1.8-2.4) mg/dl Total Bilirubin 0.8 (0.2-1) mg/dl AST 13 L (15-37) U/L ALT 16 (12-78) U/L Alkaline Phosphatase 48 (45-117) U/L Total Protein 6.6 (6.4-8.2) gm/dl Albumin 4.2 (3.4-5.0) gm/dl Globulin 2.4 L (2.5-4.0) gm/dl Albumin/Globulin Ratio 1.8 (0.9-2) TSH 0.887 (0.300-4.500) uIu/ml Urine Color Urine Appearance (Clear) Urine pH (4.5-7.5) Ur Specific [place] (1.000-1.030) Urine Protein (Negative) Urine Glucose (UA) (Negative) Urine Ketones (Negative) Urine Blood (Negative) Urine Nitrite (Negative) Urine Bilirubin (Negative) Urine Urobilinogen (Negative) Ur Leukocyte Esterase (Negative) Salicylates (2.8-20) mg/dl Urine Opiates Screen (Neg) Ur Methadone, Qual (Neg) Acetaminophen (10-30) ug/ml Urine Barbiturates (Neg) Ur Phencyclidine (PCP) (Neg) U Amphetamin/Meth Scrn (Neg) MDMA (Ecstasy) Screen (Neg) U Benzodiazepines Scrn (Neg) Ur Cocaine Metabolite (Neg) U Marijuana (THC) Screen (Neg) U Marijuana THC Carboxy Ethyl Alcohol mg/dL (0-3) mg/dl Medications Administered Discontinued Medications Sodium Chloride (Nss 1000ml) 1,000 mls @ 999 mls/hr IV .[id number] ONE Stop: 08/19/18 00:08 Last Infusion: 08/19/18 01:26 Dose: 0 mls/hr Documented by: [id number] Admin: 08/19/18 00:04 Dose: 999 mls/hr Documented by: [id number] Code Status & VTE Plan Code Status Do not resuscitate (per patient's long-standing wishes) VTE Prophylaxis Plan VTE Prophylaxis will be ordered: Yes Supervising Physician Co-Signing Physician Notes Patient seen and examined, chart reviewed, case discussed with Dr. Wallace and I agree with his assessment and plan as above PG Care Time/CCT Total # of Minutes Spent Total Time Spent with Patient: Total time spent is greater than 50% in coordination of care (as documented) at patient's floor/unit and/or counseling patient: Resident Activity Tracking Resident Involvement: Resident Care Provided Care Provided: Adult Hospital Medicine
[2018-08-19] MEDS ORDERED: BISACODYL 10 MG SUPP PR PRN (03:20)
[2018-08-19] MEDS ORDERED: ONDANSETRON 4 MG TAB PO PRN (03:20)
[2018-08-19] MEDS ORDERED: METHOCARBAMOL 500 MG TABLET PO PRN (03:20)
[2018-08-19] MEDS ORDERED: THIAMINE HCL 100 MG in SYRINGE 9 ML IV ONE (03:30)
[2018-08-19] MEDS ORDERED: MAGNESIUM SULFATE / D5W 1 GM/100 ML BAG IV ONE (03:30)
[2018-08-19] MEDS: SODIUM CHLORIDE 0.9% 1000ML 1,000 ML IV SCH ×3 (03:58→20:14)
[2018-08-19 06:06] LABS: INR 1.1 (0.9-1.1); Prothrombin Time 11.1 Seconds (9.0-12.0)
[2018-08-19 06:29] LABS: BUN Creatinine Ratio 11.8 (10-20); Calcium 8.4 mg/dl (8.5-10.1); Creatinine Clr Calc Pharmacy 77.8 ml/min; Est GFR (African American) 113.1; Est GFR (Non-African American) 97.6; Magnesium 2.1 mg/dl (1.8-2.4); Potassium 3.1 mmol/L (3.5-5.1)
--- NOTE | 2018-08-19 08:23 | Family Medicine Progress Note ---
Date of Service August 19, 2018 Assessment & Plan (1) Depression: 52-year-old male was admitted on 19 August 2018 for refusal of oral intake, depression and hyponatremia. Refusal to Eat with h/o Chronic Depression: Underlying poor quality of life since stroke due to right hemiparesis. He denies any acute physical complaints. No caregiver reports of eminently suicidal behaviors recently.See most recent available palliative care note from 12Jan2018. Mentions patient had been discharged from hospice. Notes previous episode where patient purposefully stopped eating around September 2017 as well. [id number] palliative note mentions this a.m. that "these current wishes are consistent with prior statement several months ago when he was not depressed. Had a previous suicide attempt in Sep 2017. - We will continue home escitalopram and quetiapine. - Palliative care consult. Appreciate recs -In theory Patient can qualify for hospice due to not eating -Don Vega is power of document review attorney will discuss what care olevel of care to provide with him -Ultimately the question is whether the patient will go to hospice, need placement, or return home under the care of Don -In the event that the patient would need placement I ordered PT and OT evaluations in addition to case management Hyponatremia, hypomagnesemia: Admit sodium 125, suspect of chronic duration. Admit magnesium 1.7. UA negative. In ED, afebrile, initially tachycardic but resolved with fluids, mildly hypertensive, normal room SpO2. In ED, given 1 L of 0.9% normal saline. - Will continue on maintenance NS IVF for slow correction. -Trend daily BMP - A.m. sodium 128, potassium 3.1, magnesium 2.1 -Continue normal saline for slow correction of hyponatremia especially given the chronicity -Repleted potassium 20 mg twice today - thiamine 100 mg PO daily as a precaution. Ongoing medical issues: - s/p Arterial ischemic stroke: Right-sided hemiparesis and left-sided weakness, receptive and expressive aphasia. - Hypertension, hyperlipidemia: Continue home lisinopril. - Constipation: Continue home bisacodyl and MiraLAX. - GERD: Continue home pantoprazole and Reglan. - Right shoulder pain: Continue home scheduled Tylenol as well as tramadol and Robaxin as needed. - Cardiomyopathy: Reportedly as low as EF 25%. Most recent available echo in December 2017 noted EF 45-50% with some regional wall motion abnormalities. - Seizures: By report, has been off medication for this due to previous hospice care. - Alcoholism: Admit ethyl alcohol level < 3. - Polysubstance abuse: Tobacco, alcohol, and marijuana. Admit UDS positive for marijuana. Code status: DO NOT RESUSCITATE. Diet: Full liquid diet. DVT prophy: Lovenox. PT/OT: ordered in case pt needs placement Dispo: Admit to [facility]. (2) Hyponatremia: (3) Hypomagnesemia: (4) Hypertension: (5) Hypercholesterolemia: (6) Constipation: (7) GERD without esophagitis: (8) Right shoulder pain: (9) Ischemic stroke: (10) History of cardiomyopathy: (11) History of seizures: (12) History of alcoholism: Supervising Physician Co-Signing Physician Notes Resident Physician Supervision Note: I independently interviewed and examined the patient and verified the mark history and physical, reviewed labs and image studies, discussed the case with the resident Dr. Piper and agree with the findings and care plan. Subjective *To communicate with him and write your question on the white board and he will respond* Patient lying in bed this morning in no acute distress. Reports no significant interval history since admission. Patient has a significant receptive and expressive aphasia. He is unable to understand spoken language, can respond using spoken language, can understand written language. Patient reports his caregiver is his dad Mr. Don Vega, he reports he will be by later. History is limited due to lack of participation by the patient and communication difficulties. When asked why he is here, the patient responds, "to ". He states he has been on a hunger strike for a while and is ready to . I explained to him I understood his wishes however it must be uncomfortable not to eat and offered him food which he declined. I asked him if there is anything we could do for him he reported no. He has no current complaints he follows with Dr. Dewitt as an outpatient, who is been consulted on this case. Per signout it is my understanding that the patient's ultimate wishes to be made hospice. My understanding is he was previously hospice care but was transitioned off due to unknown reasons. Will attempt to speak with Don later this afternoon to obtain further history. Asked the patient to please have the nurses page me when Don arrives, or should the patient have any needs. All questions answered no acute concerns. I discussed the case with Dr. Dewitt on the phone. She related to me that Don Vega has the power of document review attorney, and to follow his wishes with regards to the care of Jim. She will see him tomorrow in consultation HPI PER ED The patient is a 52 year old male presenting to the Emergency Department complaining of persistent depression starting 2 months ago. The history is provided with the aid of his caregiver and a white board. The patients friend/caregiver reports that the patient has expressed desire to end it all. He states that the patient has not been eating or drinking for the past 2 months. He explains that the patient is aphasic and has permanent right-sided weakness from a stroke that the patient suffered from about 10 years ago. He n otes that the patient is not currently on hospice. He adds that the patient wants to throw in the towel. The patients caregiver reports that the patient wants to be admitted to a alf facility. He states that a hospice nurse told himself and the patient in order to start that process they would need to come into the ED for evaluation. The caregiver explains that the patient has not tried to hurt himself by overdosing on his daily medication. He denies that the patient has had any recent falls. Physical Exam Physical Exam: General: Cachectic, no acute distress HEENT: Normocephalic atraumatic Neck: Deferred Cardiac: Regular rate and rhythm, no murmurs rubs or gallops, normal S1 normal S2, negative pedal edema, negative calf tenderness, good capillary refill Respiratory: Clear to auscultation bilaterally GI: Hyperactive bowel sounds, soft, nontender, nondistended MSK: Moves all extremities Skin: No new rashes Neuro: Alert and oriented Psych: Uncooperative, not eager to participate in the interview, appears at peace Results & Data Vital Signs (Past 12 Hours) Vital Signs Temp Pulse Pulse Resp BP BP Pulse Ox 08/19/18 07:48 36.4 C L 74 20 132/79 99 08/19/18 03:20 36.9 C 84 16 148/89 H 96 08/19/18 03:06 74 20 130/87 94 08/19/18 02:23 75 20 136/87 93 08/19/18 01:30 75 15 140/90 94 08/19/18 00:30 73 18 134/85 93 08/19/18 00:05 88 24 142/93 H 96 08/18/18 22:59 100 H 20 142/96 H 96 08/18/18 22:32 37.1 C 110 H 18 122/88 97 Laboratory Results 08/19/18 08/19/18 08/19/18 Range/Units 05:18 05:18 00:06 WBC (4.8-10.8) K/uL RBC (4.7-6.1) M/uL Hgb (14.0-18.0) g/dL Hct (42-52) % MCV (80-100) fL MCH (25-34) pg MCHC (32-36) g/dL RDW Std Deviation (36.4-46.3) fL RDW Coeff of Yadira (11.5-14.5) % Plt Count (130-400) K/uL MPV (7.4-10.4) fL Immature Gran % (Auto) % Neut % (Auto) % Lymph % (Auto) % Maury % (Auto) % Eos % (Auto) % Baso % (Auto) % Immature Gran # (Auto) (0.00-0.02) K/uL Neut # (Auto) (1.4-6.5) K/uL Lymph # (Auto) (1.2-3.4) K/uL Maury # (Auto) (0.11-0.59) K/uL Eos # (Auto) (0-0.5) K/uL Baso # (Auto) (0-0.2) K/uL RBC Morphology PT 11.1 (9.0-12.0) Seconds INR 1.1 (0.9-1.1) Sodium 128 L (136-145) mmol/L Potassium 3.1 L (3.5-5.1) mmol/L Chloride 95 L (98-107) mmol/L Carbon Dioxide 27 (21-32) mmol/L Anion Gap 6.0 (3-11) BUN 11 (7-18) mg/dl Creatinine 0.89 D (0.6-1.4) mg/dl Est Cr Clr Drug Dosing 77.8 ml/min Est GFR ( Amer) 113.1 Est GFR (Non-Af Amer) 97.6 BUN/Creatinine Ratio 11.8 (10-20) Glucose 102 H (70-99) mg/dl POC Glucose (70-99) Calcium 8.4 L (8.5-10.1) mg/dl Magnesium 2.1 (1.8-2.4) mg/dl Total Bilirubin (0.2-1) mg/dl AST (15-37) U/L ALT (12-78) U/L Alkaline Phosphatase (45-117) U/L Total Protein (6.4-8.2) gm/dl Albumin (3.4-5.0) gm/dl Globulin (2.5-4.0) gm/dl Albumin/Globulin Ratio (0.9-2) TSH (0.300-4.500) uIu/ml Urine Color Urine Appearance (Clear) Urine pH (4.5-7.5) Ur Specific [place] (1.000-1.030) Urine Protein (Negative) Urine Glucose (UA) (Negative) Urine Ketones (Negative) Urine Blood (Negative) Urine Nitrite (Negative) Urine Bilirubin (Negative) Urine Urobilinogen (Negative) Ur Leukocyte Esterase (Negative) Salicylates (2.8-20) mg/dl Urine Opiates Screen (Neg) Ur Methadone, Qual (Neg) Acetaminophen (10-30) ug/ml Urine Barbiturates (Neg) Ur Phencyclidine (PCP) (Neg) U Amphetamin/Meth Scrn (Neg) MDMA (Ecstasy) Screen (Neg) U Benzodiazepines Scrn (Neg) Ur Cocaine Metabolite (Neg) U Marijuana (THC) Screen (Neg) U Marijuana THC Carboxy Pending Ethyl Alcohol mg/dL (0-3) mg/dl 08/19/18 08/19/18 08/18/18 Range/Units 00:06 00:06 23:40 WBC (4.8-10.8) K/uL RBC (4.7-6.1) M/uL Hgb (14.0-18.0) g/dL Hct (42-52) % MCV (80-100) fL MCH (25-34) pg MCHC (32-36) g/dL RDW Std Deviation (36.4-46.3) fL RDW Coeff of Yadira (11.5-14.5) % Plt Count (130-400) K/uL MPV (7.4-10.4) fL Immature Gran % (Auto) % Neut % (Auto) % Lymph % (Auto) % Maury % (Auto) % Eos % (Auto) % Baso % (Auto) % Immature Gran # (Auto) (0.00-0.02) K/uL Neut # (Auto) (1.4-6.5) K/uL Lymph # (Auto) (1.2-3.4) K/uL Maury # (Auto) (0.11-0.59) K/uL Eos # (Auto) (0-0.5) K/uL Baso # (Auto) (0-0.2) K/uL RBC Morphology PT (9.0-12.0) Seconds INR (0.9-1.1) Sodium (136-145) mmol/L Potassium (3.5-5.1) mmol/L Chloride (98-107) mmol/L Carbon Dioxide (21-32) mmol/L Anion Gap (3-11) BUN (7-18) mg/dl Creatinine (0.6-1.4) mg/dl Est Cr Clr Drug Dosing ml/min Est GFR ( Amer) Est GFR (Non-Af Amer) BUN/Creatinine Ratio (10-20) Glucose (70-99) mg/dl POC Glucose 116 H (70-99) Calcium (8.5-10.1) mg/dl Magnesium (1.8-2.4) mg/dl Total Bilirubin (0.2-1) mg/dl AST (15-37) U/L ALT (12-78) U/L Alkaline Phosphatase (45-117) U/L Total Protein (6.4-8.2) gm/dl Albumin (3.4-5.0) gm/dl Globulin (2.5-4.0) gm/dl Albumin/Globulin Ratio (0.9-2) TSH (0.300-4.500) uIu/ml Urine Color Yellow Urine Appearance Clear (Clear) Urine pH 5.5 (4.5-7.5) Ur Specific [place] 1.010 (1.000-1.030) Urine Protein Negative (Negative) Urine Glucose (UA) Negative (Negative) Urine Ketones Negative (Negative) Urine Blood Negative (Negative) Urine Nitrite Negative (Negative) Urine Bilirubin Negative (Negative) Urine Urobilinogen Negative (Negative) Ur Leukocyte Esterase Negative (Negative) Salicylates (2.8-20) mg/dl Urine Opiates Screen Neg (Neg) Ur Methadone, Qual Neg (Neg) Acetaminophen (10-30) ug/ml Urine Barbiturates Neg (Neg) Ur Phencyclidine (PCP) Neg (Neg) U Amphetamin/Meth Scrn Neg (Neg) MDMA (Ecstasy) Screen Neg (Neg) U Benzodiazepines Scrn Neg (Neg) Ur Cocaine Metabolite Neg (Neg) U Marijuana (THC) Screen Pos H (Neg) U Marijuana THC Carboxy Ethyl Alcohol mg/dL (0-3) mg/dl 08/18/18 08/18/18 08/18/18 Range/Units 23:39 23:39 23:39 WBC (4.8-10.8) K/uL RBC (4.7-6.1) M/uL Hgb (14.0-18.0) g/dL Hct (42-52) % MCV (80-100) fL MCH (25-34) pg MCHC (32-36) g/dL RDW Std Deviation (36.4-46.3) fL RDW Coeff of Yadira (11.5-14.5) % Plt Count (130-400) K/uL MPV (7.4-10.4) fL Immature Gran % (Auto) % Neut % (Auto) % Lymph % (Auto) % Maury % (Auto) % Eos % (Auto) % Baso % (Auto) % Immature Gran # (Auto) (0.00-0.02) K/uL Neut # (Auto) (1.4-6.5) K/uL Lymph # (Auto) (1.2-3.4) K/uL Maury # (Auto) (0.11-0.59) K/uL Eos # (Auto) (0-0.5) K/uL Baso # (Auto) (0-0.2) K/uL RBC Morphology PT (9.0-12.0) Seconds INR (0.9-1.1) Sodium 125 L (136-145) mmol/L Potassium 3.5 (3.5-5.1) mmol/L Chloride 87 L (98-107) mmol/L Carbon Dioxide 30 (21-32) mmol/L Anion Gap 8.0 (3-11) BUN 13 (7-18) mg/dl Creatinine 1.20 (0.6-1.4) mg/dl Est Cr Clr Drug Dosing 62.4 ml/min Est GFR ( Amer) 79.5 Est GFR (Non-Af Amer) 68.6 BUN/Creatinine Ratio 10.7 (10-20) Glucose 96 (70-99) mg/dl POC Glucose (70-99) Calcium 8.9 (8.5-10.1) mg/dl Magnesium 1.7 L (1.8-2.4) mg/dl Total Bilirubin 0.8 (0.2-1) mg/dl AST 13 L (15-37) U/L ALT 16 (12-78) U/L Alkaline Phosphatase 48 (45-117) U/L Total Protein 6.6 (6.4-8.2) gm/dl Albumin 4.2 (3.4-5.0) gm/dl Globulin 2.4 L (2.5-4.0) gm/dl Albumin/Globulin Ratio 1.8 (0.9-2) TSH 0.887 (0.300-4.500) uIu/ml Urine Color Urine Appearance (Clear) Urine pH (4.5-7.5) Ur Specific [place] (1.000-1.030) Urine Protein (Negative) Urine Glucose (UA) (Negative) Urine Ketones (Negative) Urine Blood (Negative) Urine Nitrite (Negative) Urine Bilirubin (Negative) Urine Urobilinogen (Negative) Ur Leukocyte Esterase (Negative) Salicylates 2.9 (2.8-20) mg/dl Urine Opiates Screen (Neg) Ur Methadone, Qual (Neg) Acetaminophen < 2 L (10-30) ug/ml Urine Barbiturates (Neg) Ur Phencyclidine (PCP) (Neg) U Amphetamin/Meth Scrn (Neg) MDMA (Ecstasy) Screen (Neg) U Benzodiazepines Scrn (Neg) Ur Cocaine Metabolite (Neg) U Marijuana (THC) Screen (Neg) U Marijuana THC Carboxy Ethyl Alcohol mg/dL < 3.0 (0-3) mg/dl 08/18/18 Range/Units 23:39 WBC 7.96 (4.8-10.8) K/uL RBC 4.39 L (4.7-6.1) M/uL Hgb 14.1 (14.0-18.0) g/dL Hct 36.9 L (42-52) % MCV 84.1 (80-100) fL MCH 32.1 (25-34) pg MCHC 38.2 H (32-36) g/dL RDW Std Deviation 37.1 (36.4-46.3) fL RDW Coeff of Yadira 12.1 (11.5-14.5) % Plt Count 176 (130-400) K/uL MPV 11.1 H (7.4-10.4) fL Immature Gran % (Auto) 0.3 % Neut % (Auto) 50.6 % Lymph % (Auto) 34.5 % Maury % (Auto) 13.9 % Eos % (Auto) 0.4 % Baso % (Auto) 0.3 % Immature Gran # (Auto) 0.02 (0.00-0.02) K/uL Neut # (Auto) 4.03 (1.4-6.5) K/uL Lymph # (Auto) 2.75 (1.2-3.4) K/uL Maury # (Auto) 1.11 H (0.11-0.59) K/uL Eos # (Auto) 0.03 (0-0.5) K/uL Baso # (Auto) 0.02 (0-0.2) K/uL RBC Morphology Unremarkable PT (9.0-12.0) Seconds INR (0.9-1.1) Sodium (136-145) mmol/L Potassium (3.5-5.1) mmol/L Chloride (98-107) mmol/L Carbon Dioxide (21-32) mmol/L Anion Gap (3-11) BUN (7-18) mg/dl Creatinine (0.6-1.4) mg/dl Est Cr Clr Drug Dosing ml/min Est GFR ( Amer) Est GFR (Non-Af Amer) BUN/Creatinine Ratio (10-20) Glucose (70-99) mg/dl POC Glucose (70-99) Calcium (8.5-10.1) mg/dl Magnesium (1.8-2.4) mg/dl Total Bilirubin (0.2-1) mg/dl AST (15-37) U/L ALT (12-78) U/L Alkaline Phosphatase (45-117) U/L Total Protein (6.4-8.2) gm/dl Albumin (3.4-5.0) gm/dl Globulin (2.5-4.0) gm/dl Albumin/Globulin Ratio (0.9-2) TSH (0.300-4.500) uIu/ml Urine Color Urine Appearance (Clear) Urine pH (4.5-7.5) Ur Specific [place] (1.000-1.030) Urine Protein (Negative) Urine Glucose (UA) (Negative) Urine Ketones (Negative) Urine Blood (Negative) Urine Nitrite (Negative) Urine Bilirubin (Negative) Urine Urobilinogen (Negative) Ur Leukocyte Esterase (Negative) Salicylates (2.8-20) mg/dl Urine Opiates Screen (Neg) Ur Methadone, Qual (Neg) Acetaminophen (10-30) ug/ml Urine Barbiturates (Neg) Ur Phencyclidine (PCP) (Neg) U Amphetamin/Meth Scrn (Neg) MDMA (Ecstasy) Screen (Neg) U Benzodiazepines Scrn (Neg) Ur Cocaine Metabolite (Neg) U Marijuana (THC) Screen (Neg) U Marijuana THC Carboxy Ethyl Alcohol mg/dL (0-3) mg/dl Medications Administered Current Inpatient Medications Bisacodyl (Dulcolax) 10 mg MI DAILY PRN PRN Reason: Constipation Stop: 09/18/18 03:19 Enoxaparin Sodium (Lovenox) 40 mg SQ Q24H DEZ Stop: 09/18/18 08:59 Escitalopram Oxalate (Lexapro Tab) 5 mg PO DAILY DEZ Stop: 09/18/18 08:59 Sodium Chloride (Nss 1000ml) 1,000 mls @ 125 mls/hr IV .Q8H DEZ Stop: 09/18/18 03:19 Last Infusion: 08/19/18 05:20 Dose: 125 mls/hr Documented by: Lisinopril (Zestril) 20 mg PO DAILY DEZ Stop: 09/18/18 08:59 Methocarbamol (Robaxin) 500 mg PO QID PRN PRN Reason: muscle spasms Stop: 09/18/18 03:19 Miscellaneous (Order Awaiting Action) 1 ea N/A QS DEZ Stop: 09/18/18 07:59 Ondansetron HCl (Zofran Tab) 4 mg PO Q6H PRN PRN Reason: nausea/vomiting Stop: 09/18/18 03:19 Pantoprazole Sodium (Protonix) 40 mg PO BID [facility] Stop: 09/18/18 08:59 Polyethylene Glycol (Miralax Powder Packet) 17 gm PO DAILY [facility] Stop: 09/18/18 08:59 Quetiapine Fumarate (Seroquel) 12.5 mg PO TID [facility] Stop: 09/18/18 08:59 Thiamine HCl (Vitamin B-1) 100 mg PO QAM [facility] Stop: 09/18/18 08:59 Tramadol HCl (Ultram) 50 mg PO QID [facility] Stop: 09/18/18 08:59 PG Care Time/CCT Total # of Minutes Spent Total Time Spent with Patient: Total time spent is greater than 50% in coordination of care (as documented) at patient's floor/unit and/or counseling patient: Resident Activity Tracking Resident Involvement: Resident Care Provided Care Provided: Adult Hospital Medicine
[2018-08-19] MEDS: TRAMADOL HCL 50 MG TABLET PO SCH ×4 (09:19→22:01)
[2018-08-19] MEDS: POTASSIUM CHLORIDE 20 MEQ TABCR PO SCH ×2 (09:19→16:27)
[2018-08-19] MEDS: ESCITALOPRAM OXALATE 10 MG TAB PO SCH (09:22)
[2018-08-19] MEDS: LISINOPRIL 20 MG TAB PO SCH (09:23)
[2018-08-19] MEDS: QUETIAPINE FUMARATE 25 MG TABLET PO SCH ×3 (09:23→22:02)
[2018-08-19] MEDS: PANTOprazole 40 MG TAB PO SCH ×2 (09:24→22:02)
[2018-08-19] MEDS: THIAMINE HCL 100 MG TAB PO SCH (09:24)
[2018-08-19] MEDS: POLYETHYLENE (MIRALAX) 17 GM PACK PO SCH (09:28)
[2018-08-19] MEDS: ENOXAPARIN INJ 40 MG/0.4 ML SYR SQ SCH (10:02)
[2018-08-20] MEDS: SODIUM CHLORIDE 0.9% 1000ML 1,000 ML IV SCH ×4 (02:21→23:55)
[2018-08-20 06:31] LABS: BUN Creatinine Ratio 13.5 (10-20); Calcium 7.9 mg/dl (8.5-10.1); Creatinine Clr Calc Pharmacy 101.8 ml/min; Est GFR (African American) 126.4; Potassium 3.8 mmol/L (3.5-5.1)
[2018-08-20] MEDS: QUETIAPINE FUMARATE 25 MG TABLET PO SCH ×3 (08:53→21:19)
[2018-08-20] MEDS: THIAMINE HCL 100 MG TAB PO SCH (08:53)
[2018-08-20] MEDS: LISINOPRIL 20 MG TAB PO SCH (08:53)
[2018-08-20] MEDS: PANTOprazole 40 MG TAB PO SCH ×2 (08:53→21:18)
[2018-08-20] MEDS: ESCITALOPRAM OXALATE 10 MG TAB PO SCH (08:53)
[2018-08-20] MEDS: POTASSIUM CHLORIDE 20 MEQ TABCR PO SCH ×2 (08:54→17:12)
[2018-08-20] MEDS: ENOXAPARIN INJ 40 MG/0.4 ML SYR SQ SCH (08:54)
[2018-08-20] MEDS: POLYETHYLENE (MIRALAX) 17 GM PACK PO SCH (08:56)
[2018-08-20] MEDS: TRAMADOL HCL 50 MG TABLET PO SCH ×4 (08:57→22:06)
--- NOTE | 2018-08-20 09:19 | Family Medicine Progress Note ---
Date of Service August 20, 2018 Assessment & Plan (1) Depression: Mr. Gardner is a 52-year-old male with a past medical history of ischemic stroke with resultant right sided hemiparesis, receptive and expressive aphasia, hypertension, hyperlipidemia, cardiomyopathy, prior seizures (not on medic ation), alcohol use w/prior admission for withdrawals who was admitted on 19 August 2018 for depression, decreased p.o. intake, and hyponatremia. Depression: -chronic, denies any acute physical complaints -pt refusing all meals at this time - per review of records, pt has had previous episode of the same in the past (September 2017) -continue home escitalopram and quetiapine -Palliative care consult placed, thank you for recommendations -Don Vega is power of customer success representative - requesting placement at a SNF due to increased difficulty caring for Mr. Gardner at home Hyponatremia, hypomagnesemia - resolved: -Admit sodium 125, suspect of chronic duration. Admit magnesium 1.7. -Resolved with repletion -Will continue on maintenance NS IVF -Trend daily BMP -thiamine 100 mg PO daily as a precaution. Hypertension: - Continue home lisinopril. Constipation: - Continue home bisacodyl and MiraLAX. GERD: - Continue home pantoprazole and Reglan. Right shoulder pain: - Continue home scheduled Tylenol and tramadol, as well as Robaxin as needed. Prior ischemic stroke: - Right-sided hemiparesis and left-sided weakness, receptive and expressive aphasia. Cardiomyopathy: - Reportedly as low as EF 25%. Most recent available echo in December 2017 noted EF 45-50% with some regional wall motion abnormalities. Seizures: - By report, has been off medication for this due to previous hospice care. - no seizure activity noted Alcoholism: - Admit ethyl alcohol level < 3. - hx of withdrawals in 2018 Polysubstance abuse: - Tobacco, alcohol, and marijuana. Admit UDS positive for marijuana. Code status: DO NOT RESUSCITATE. Diet: Full liquid diet. DVT prophylaxis: Lovenox. PT/OT: report patient is at baseline Dispo: Remains on med/surg. CM following, referral placed to [facility]. Patient requires psych eval prior to placement due to hx of psychiatric disorders. Psych consult placed. (2) Hyponatremia: (3) Hypomagnesemia: (4) Hypertension: (5) Hypercholesterolemia: (6) Constipation: (7) GERD without esophagitis: (8) Right shoulder pain: (9) Ischemic stroke: (10) History of cardiomyopathy: (11) History of seizures: (12) History of alcoholism: Supervising Physician Co-Signing Physician Notes I personally examined the patient and verified all mark points of history and exam, discussed case, and agree with decision making with Dr Holcomb. no new complaints. appreciates care. goal is SNF/comfort/hospice vitals noted nad breathing unlabored no pallor or icterus. goals of care - as above. continue working towards snf if at all possible. Subjective Mr. Gardner reports that his wishes are still to be placed on hospice care. He s tates he has not been eating, and declined his breakfast this morning. He reports chronic left shoulder pain, which he states is manageable as long as he takes his tramadol. He denies being in any other pain. Conversation was had with the aid of a whiteboard due to his receptive and expressive aphasia. He denies any other needs at this time. Review of Systems Constitutional: + anorexia; no fever and no chills Cardiovascular: no chest pain, no edema and no calf pain Gastrointestinal: no abdominal pain and no vomiting Physical Exam Constitutional: WD/WN, vitals as above + thin, cooperative and comfortable Respiratory: normal respiratory effort, lungs clear to auscultation Cardiovascular: RRR, no murmur, no edema Gastrointestinal (Abdomen): Percussion/Palpation: abdomen soft; abdomen nontender, no guarding and abdomen not rigid Neurologic: right sided hemiparesis, expressive aphasia Results & Data Vital Signs (Past 12 Hours) Vital Signs Temp Pulse Resp BP Pulse Ox 08/20/18 07:41 36.3 C L 65 16 121/73 97 08/20/18 00:00 36.5 C 59 L 20 111/71 97 PG Care Time/CCT Total # of Minutes Spent Total Time Spent with Patient: Total time spent is greater than 50% in coordination of care (as documented) at patient's floor/unit and/or counseling patient: Resident Activity Tracking Resident Involvement: Resident Care Provided Care Provided: Adult Hospital Medicine
[2018-08-20] MEDS: ACETAMINOPHEN 325 MG TAB PO SCH ×2 (13:52→21:19)
--- NOTE | 2018-08-20 15:10 | Palliative Care Consultation ---
Date of Consultation August 20, 2018 Assessment & Plan (1) Palliative care encounter: Patient is well-known to me from outpatient palliative care clinic. 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 Patient also suffers from expressive and receptive partial a fascia-patient able to communicate best using a white board. Patient's caregiver and POA is Don Vega-phone number is [phone]. Patient seen and examined in his room today-Don present at bedside. Patient was last seen in palliative clinic on 06/19-both the patient and caregiver reported having more difficulties taking care of him at home-or discussing need for placement in the near future. Patient's weight on his clinic visit was 147# -he has had a 20 pound weight loss since then. Patient has reported on multiple prior occasions his poor quality of life-has not wanted to have any aggressive measures to keep him alive, does have a POLST form filled out-his caregiver will bring it into the hospital. Patient has had poor p.o. intake in the past and was placed on hospice-patient did have some adjustments to his medications, did start eating again and was discharged from hospice approximately a year ago. Patient continues to have a dense right hemiparesis, has left shoulder pain- underwent PT recently that resulted in improvement in his range of motion. Patient requires muscle relaxant as well as 3-4 time a day tramadol for pain related to his prior stroke. Patient and caregiver report decreased p.o. intake since the end of June-weight loss of approximately 20 pounds. Patient reports increased weakness, he gets short of breath and lightheaded with change in position. Patient denies depressed mood-has been well controlled on Lexapro. Patient with some behavioral issues due to his stroke-these have improved with reinstating his Seroquel at 12.5 mg 3 times daily. Patient also uses marijuana PRN for pain control as well as for sleep. -Patient is opting for comfort care-he has expressed these wishes on multiple occasions over the past year -CVA-dense right hemiparesis, expressive and receptive aphasia-on lisinopril for blood pressure control, behavioral issues-improved on Seroquel 3 times daily -Hemiparesis-some pain associated with joints due to poor muscle tone-uses tramadol 3-4 times a day -[id number] expressive and receptive-communicates well using a white board -Depression-has been stable on Lexapro. Both patient and caregiver report no increased depressive symptoms-will need a psych consult -Chronic pain-left shoulder-did improve with PT/OT. Patient has an appointment with Dr. Hernandez for possible injection at the end of the month. Continue tramadol Will continue to follow and assist both patient and caregiver with medical decision making. Caregiver to bring in patient's home POLST form (2) Ischemic stroke: (3) Hemiparesis, right: (4) Expressive aphasia: (5) Depression: (6) Chronic pain: History of Present Illness Reason for Consultation: Address goals of care, patient is an established outpatient palliative clinic patient Requesting Physician: Dr Sheramn aWllace Attending Physician: Mustapha Adair DO History of Present Illness Patient is well-known to me from outpatient palliative care clinic. 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 Patient also suffers from expressive and receptive partial a fascia-patient able to communicate best using a white board. Patient's caregiver and POA is Don Vega-phone number is [phone]. Patient seen and examined in his room today-Don present at bedside. Patient was last seen in palliative clinic on 06/19-both the patient and caregiver reported having more difficulties taking care of him at home-or discussing need for placement in the near future. Patient's weight on his clinic visit was 147# -he has had a 20 pound weight loss since then. Patient has reported on multiple prior occasions his poor quality of life-has not wanted to have any aggressive measures to keep him alive, does have a POLST form filled out-his caregiver will bring it into the hospital. Patient has had poor p.o. intake in the past and was placed on hospice-patient did have some adjustments to his medications, did start eating again and was discharged from hospice approximately a year ago. Patient continues to have a dense right hemiparesis, has left shoulder pain- underwent PT recently that resulted in improvement in his range of motion. Patient requires muscle relaxant as well as 3-4 time a day tramadol for pain related to his prior stroke. Patient and caregiver report decreased p.o. intake since the end of June-weight loss of approximately 20 pounds. Patient reports increased weakness, he gets short of breath and lightheaded with change in position. Patient denies depressed mood-has been well controlled on Lexapro. Patient with some behavioral issues due to his stroke-these have improved with reinstating his Seroquel at 12.5 mg 3 times daily. Patient also uses marijuana PRN for pain control as well as for sleep. Allergies Allergy/AdvReac Type Severity Reaction Status Date / Time codeine Allergy Mild HIVES Verified 08/18/18 22:48 Home Medications Home Medications Medication Instructions Recorded Confirmed Type bisacodyl 10 mg MO DAILY PRN 01/12/18 08/18/18 History methocarbamol 500 mg PO QID PRN 01/12/18 08/18/18 History ondansetron HCl [Zofran] 4 mg PO Q6H PRN 01/12/18 08/18/18 History pantoprazole 40 mg PO BID 01/12/18 08/18/18 History polyethylene glycol 3350 [Miralax] 17 g PO DAILY 01/12/18 08/18/18 History acetaminophen ER 650 mg 650 mg PO TID tab 08/07/18 08/18/18 History tablet,extended release quetiapine 25 mg tablet 12.5 mg PO TID tab 08/07/18 08/18/18 History escitalopram oxalate 5 mg PO DAILY 08/18/18 08/18/18 History lisinopril 20 mg PO DAILY 08/18/18 08/18/18 History tramadol 50 mg PO QID 08/18/18 08/18/18 History Patient History Medical History Seizure disorder (Acute) Polyneuropathy (Acute) Hypertension (Acute) Hypercholesterolemia (Acute) Hemiparesis, right (Acute) GERD without esophagitis (Acute) Expressive aphasia (Acute) Chronic prostatitis (Acute) Cervical radiculopathy at C7 (Acute) Back pain (Acute) Anemia (Acute) Anticoagulant therapy (Chronic Unknown) Cardiomyopathy (Chronic Unknown) "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% " On 08/13/12 05:02 J Luis Torres wrote "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% " Ischemic stroke (Resolved Unknown) "left MCA received TPA echo- LV mural thrombus residual right hemiparesis + aphasia " Seizure (Chronic Unknown) Suicide attempt (Acute Unknown) Status epilepticus, generalized convulsive (Acute 07/09/13) ARF (acute renal failure) (Acute 02/22/14) CVA (cerebral vascular accident) (Resolved) Aphasia (Chronic) Anxiety Depression (Acute) ARF (acute renal failure) (Resolved 02/03/14) Arterial ischemic stroke, MCA (middle cerebral artery), left, chronic (Resolved) Breakthrough seizure (Resolved) Change in mental status (Resolved) Hemiparesis (Resolved Unknown) "right hemiparesis " On 08/13/12 00:17 Ham Jacobs wrote "right hemiparesis " Hemorrhagic shock (Resolved) Hyperammonemia (Resolved) Hyperkalemia (Resolved) Hypomagnesemia (Resolved) Hyponatremia (Resolved Unknown) Hypoxia (Resolved 02/22/14) Left shoulder pain (Resolved) Leg fracture, right (Resolved) Metabolic encephalopathy (Resolved 03/21/14) Seizure (Resolved) Shoulder pain (Resolved) Sepsis (Unknown) Family History Other No significant family history Social History Preferred Language: [place] Communication Ability: Effective Inking Machine Tender Required: No Beliefs That Will Affect Care: None Current Living Situation: Other Current Living Situation Comment: [facility] ([facility]) Feels Safe at Home: Yes Safety Concerns: Feels Safe At This Time Smoking Status: Current every day smoker Cigarettes Per Day: 2 Second Hand Exposure: No Hx Alcohol Use: No Hx Substance Use: No Review of Systems Review of Systems: Patient denies fever, chills, chest pain, abdominal pain. Positive for increased weakness, shortness of breath with exertion, lightheadedness with change in position, positive anorexia Physical Exam Physical Exam: PE: No acute distress HEENT: EOMI, hearing within normal limits Respirations: Unlabored, clear breath sounds CV: Regular rate, no edema Abdomen: Soft, nontender, not distended Extremities: Dense right hemiparesis, limited range of motion left upper extremity Neuro: Alert and oriented-able to participate in medical decision-making Psych: Patient at his usual baseline regarding mood and affect Results & Data Vital Signs (Past 12 Hours) Vital Signs Temp Pulse Resp BP Pulse Ox 08/20/18 07:41 97.3 F L 65 16 121/73 97 PG Care Time/CCT Total # of Minutes Spent Total Time Spent with Patient: Total time spent is greater than 50% in coordination of care (as documented) at patient's floor/unit and/or counseling patient: Time Spent Attending Total time spent 70 minutes with greater than 50% of the time spent at bedside reviewing patient's goals of care and discussing plan of care with patient, caregiver and case management.. Collaborated with attending team
[2018-08-20] MEDS ORDERED: NURSING DECISION MEDICATION ONE (19:56)
[2018-08-21 06:20] LABS: BUN Creatinine Ratio 11.8 (10-20); Calcium 8.5 mg/dl (8.5-10.1); Creatinine Clr Calc Pharmacy 123.6 ml/min; Est GFR (African American) 136.9; Est GFR (Non-African American) 118.1
--- NOTE | 2018-08-21 07:13 | Family Medicine Progress Note ---
Date of Service August 21, 2018 Assessment & Plan (1) Depression: Mr. Gardner is a 52-year-old male with a past medical history of ischemic stroke with resultant right sided hemiparesis, receptive and expressive aphasia, hypertension, hyperlipidemia, cardiomyopathy, prior seizures (not on medic ation), alcohol use w/prior admission for withdrawals who was admitted on 19 August 2018 for depression, decreased p.o. intake, and hyponatremia. Depression: -chronic, denies any acute physical complaints -pt refusing all meals at this time - per review of records, pt has had previous episode of the same in the past (September 2017) -> pt has lost 20 pounds in 2 months, POA having difficulty caring for pt at home -continue home escitalopram and quetiapine - depression well controlled on this regimen. No SI/HI. -Palliative care consult placed, thank you for recommendations -Don Vega is power of city attorney - requesting placement at a SNF due to increased difficulty caring for Mr. Gardner at home -> case management placed referral to [facility] -> psych consult appreciated Hyponatremia, hypomagnesemia - resolved: -Resolved with repletion -Will continue on maintenance IVF - transition from NS to normosol -thiamine 100 mg PO daily as a precaution. Hypertension: - Continue home lisinopril. Constipation: - Continue home bisacodyl and MiraLAX. GERD: - Continue home pantoprazole and Reglan. Right shoulder pain: - Continue home scheduled Tylenol and tramadol, as well as Robaxin as needed - pain well controlled on this regimen Prior ischemic stroke: - Right-sided hemiparesis and left-sided weakness, receptive and expressive aphasia. Cardiomyopathy: - ECHO in December 2017 noted EF 45-50% with some regional wall motion abnormalities. Seizures: - By report, has been off medication for this due to previous hospice care. - no seizure activity noted Alcoholism: - Admit ethyl alcohol level < 3. - hx of withdrawals in 2018 Polysubstance abuse: - Tobacco, alcohol, and marijuana. Admit UDS positive for marijuana. Code status: DO NOT RESUSCITATE. Diet: Full liquid diet - pt refusing to eat DVT prophylaxis: Lovenox. PT/OT: report patient is at baseline Dispo: Remains on med/surg. Plan for placement at SNF. (2) Hyponatremia: (3) Hypomagnesemia: (4) Hypertension: (5) Hypercholesterolemia: (6) Constipation: (7) GERD without esophagitis: (8) Right shoulder pain: (9) Ischemic stroke: (10) History of cardiomyopathy: (11) History of seizures: (12) History of alcoholism: Supervising Physician Co-Signing Physician Notes I personally examined the patient and verified all mark points of history and exam, discussed case, and agree with decision making with Dr Holcomb. no new complaints. awaiting placement decisions. palliative input appreciated. case management input appreciated. vitals noted nad breathing unlabored no pallor or icterus. goals of care - as above. continue working towards snf if at all possible, caregiver notes home possible if not. assessments underway. Subjective Mr. Gardner denies any complaints today. From discussion with Dr. Dewitt, he has lost approximately 20 pounds since he was last seen in clinic 2 months ago, and his POA/caregiver is having increasing difficulties caring for him. Mr. Gardner states he continues not to eat. He reports his arm pain is manageable with his home regimen of pain medications. Review of Systems Constitutional: + anorexia; no fever and no chills Respiratory: no cough and no dyspnea Cardiovascular: no chest pain, no palpitations, no edema and no calf pain Gastrointestinal: no abdominal pain, no nausea and no vomiting Physical Exam Constitutional: + thin, cooperative and comfortable Respiratory: normal respiratory effort, lungs clear to auscultation Cardiovascular: RRR, no murmur, no edema Gastrointestinal (Abdomen): Percussion/Palpation: abdomen soft; abdomen nontender and abdomen not rigid Skin: no rashes, warm and dry Neurologic: Speech / Cognition: + expressive aphasia and + receptive aphasia right sided arm weakness Results & Data Vital Signs (Past 12 Hours) Vital Signs Temp Pulse Resp BP Pulse Ox 08/21/18 07:00 36.5 C 56 L 18 163/83 H 98 08/21/18 02:25 64 144/86 H 08/20/18 23:20 36.8 C 59 L 18 160/88 H 99 PG Care Time/CCT Total # of Minutes Spent Total Time Spent with Patient: Total time spent is greater than 50% in insurance coordinator rdination of care (as documented) at patient's floor/unit and/or counseling patient: Resident Activity Tracking Resident Involvement: Resident Care Provided Care Provided: Adult Hospital Medicine
[2018-08-21] MEDS: POTASSIUM CHLORIDE 20 MEQ TABCR PO SCH ×2 (07:53→16:59)
[2018-08-21] MEDS: ESCITALOPRAM OXALATE 10 MG TAB PO SCH (07:54)
[2018-08-21] MEDS: ENOXAPARIN INJ 40 MG/0.4 ML SYR SQ SCH (07:54)
--- NOTE | 2018-08-21 07:54 | Psychiatric Consultation ---
Date of Consultation August 21, 2018 Impression / Recommendations Impression 52-year-old male admitted medically on 08/18/18 due to verbalized desire to be place on hospice and transferred to a group home facility. Power of managing attorney, and current cash register operator had also requested placement, as it has reportedly become increasingly difficult to care for the patient's needs at home. Psychiatric consultation is requested to evaluated appropriateness of transfer to a group home facility as it relates to any psychiatric concerns. Pt does have a history of depression and anxiety; however, is able to verbalize that his symptoms are "stable" at this time. Patient feels that his current medication regimen is effective for managing depression and anxiety. Patient is able to indicate, with rather decent insight, that although he does not have an active desire to quicken his demise he is no longer interested in any treatment that may prolong life. Patient denies any suicidal ideation or urges to self-harm. Patient feels that he would be able to maintain safety in a group home facility. Patient is denying any acute psychosis or history of hallucinations. His current symptoms do not suggest a need for inpatient psychiatric treatment. Patient has been seen by palliative care on multiple occasions, and current discharge plan is for transfer to a group home facility. There is no indication at this time to suggest that these discharge arrangements would be inappropriate psychiatrically. According to the findings of our service, there are no acute psychiatric concerns or display of any behavior that would interfere with current discharge planning or ability for patient to be treated in a group home facility. Appreciate the opportunity to anticipate the care of this patient. Please reach out to our service or psychiatric nurse liaison with any further questions. Dr. Estella Solomon was directly involved in review and discussion of the patient's case and participated in medical decision making regarding treatment recommendations. Risk Factors Assessment Do You Have Access To A Gun?: No CPT Code Initial Consultation: 81014 Psych History Identifying Data 52-year-old male admitted medically on 08/18/18 with verbalized request for hospice care and SNF placement. Pt is a DNR/DNI at this time and has been seen by palliative care on several occasions in the past. Pt is known to use from a consult in 09/2017 following a suicide attempt. Psychiatric consultation was requested to assess patient for psychiatric stability for transfer to a group home facility. Pt has reported expressive and receptive aphasia, which limits history - he is able to communicate through "yes and no" questions. Chief Complaint "Okay, thank you." History of Present Illness Jim Gardner (Rick) is a 52-year-old male admitted medically on 08/18/18 after presenting to the ED with desire to be place on hospice. Pt was reportedly requesting placement in a SNF, as it has been reported that his partner and cash register operator has had increasing difficulty caring for the patient at home. Psychiatric consultation is requested to evaluate appropriateness of transfer as it relates to his psychiatric history. Pt was last seen on our service by this provider on 09/29/17 during a hospitalization for a suicide attempt, in which patient had self-inflicted lacerations to his right forearm. At time of evaluation, patient is seen individually in his room. Per patient, his partner/cash register operator had stepped out of the room for lunch. Patient verbalized understanding of provider's introductions and reason for consultation. This provider had several prepared written questions and also utilized a dry erase board to ensure clear communication with the patient. Patient reports that today he is feeling "in pain" but admits that as needed pain medications are effective for managing this. Patient states that his mood over the last month has been "stable". When asked about the presence of anxiety, the patient states "well yeah", but feels that it is well managed with his current medication regimen. Patient denies auditory or visual hallucinations, and denies presence of homicidal ideation. Patient patient denies any active suicidal thoughts, but in general is able to verbalize that he no longer desires to prolong his life. Patient indicates through physical gestures and dysarthric speech that he recognizes that his quality of life is reduced. Patient continues to state in general that his mood and anxiety are well managed, but his overall hopefulness for improvement of his condition is very low. Patient states that he has no active suicidality or plan to harm himself physically. He does verbalize that if transferred to a group home facility, he would not take any steps towards his demise. Patient does openly state that he is "ready to be done." Patient denies any other psychiatric concerns, and does indicate agreement with us communicating with his partner as necessary for any additional information. Past Psychiatric History Current Psychiatric Diagnosis: Depression, anxiety, substance abuse Outpatient Services: Psychiatric medications currently prescribed by primary care providers, patient denies being established currently with a therapist. Patient was previously seen by psychiatrist at [facility] Previous Psych Admissions: Per 09/2017 consultation: [facility] admissions - 08/2012, 12/2012, 2 admissions in 2010 Do You Have Access To A Gun?: No History of Previous Suicide Attempt: Yes (Several previous attempts by cutting and one overdose attempt) Describe Attempts in the Past: Most recently 09/2017 -self-inflicted lacerations to right forearm Past Medication Trials: Per previous psychiatric consultation: - Wellbutrin - increased anger - Lexapro - Ativan - Prozac - Seroquel - "took edge off" Allergies Allergy/AdvReac Type Severity Reaction Status Date / Time codeine Allergy Mild HIVES Verified 08/18/18 22:48 Home Medications Home Medications Medication Instructions Recorded Confirmed Type bisacodyl 10 mg NE DAILY PRN 01/12/18 08/18/18 History methocarbamol 500 mg PO QID PRN 01/12/18 08/18/18 History ondansetron HCl [Zofran] 4 mg PO Q6H PRN 01/12/18 08/18/18 History pantoprazole 40 mg PO BID 01/12/18 08/18/18 History polyethylene glycol 3350 [Miralax] 17 g PO DAILY 01/12/18 08/18/18 History acetaminophen ER 650 mg 650 mg PO TID tab 08/07/18 08/18/18 History tablet,extended release quetiapine 25 mg tablet 12.5 mg PO TID tab 08/07/18 08/18/18 History escitalopram oxalate 5 mg PO DAILY 08/18/18 08/18/18 History lisinopril 20 mg PO DAILY 08/18/18 08/18/18 History tramadol 50 mg PO QID 08/18/18 08/18/18 History Personal History Living Arrangements: Home (With partner/caregiver) Marital Status: Living w/ Signif. Other Number Of Children: None Beliefs That Will Affect Care: None Patient History Medical History Seizure disorder (Acute) Polyneuropathy (Acute) Hypertension (Acute) Hypercholesterolemia (Acute) Hemiparesis, right (Acute) GERD without esophagitis (Acute) Expressive aphasia (Acute) Chronic prostatitis (Acute) Cervical radiculopathy at C7 (Acute) Back pain (Acute) Anemia (Acute) Anticoagulant therapy (Chronic Unknown) Cardiomyopathy (Chronic Unknown) "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% " On 08/13/12 05:02 J Luis Torres wrote "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% " Ischemic stroke (Resolved Unknown) "left MCA received TPA echo- LV mural thrombus residual right hemiparesis + aphasia " Seizure (Chronic Unknown) Suicide attempt (Acute Unknown) Status epilepticus, generalized convulsive (Acute 07/09/13) ARF (acute renal failure) (Acute 02/22/14) CVA (cerebral vascular accident) (Resolved) Aphasia (Chronic) Anxiety Depression (Acute) ARF (acute renal failure) (Resolved 02/03/14) Arterial ischemic stroke, MCA (middle cerebral artery), left, chronic (Resolved) Breakthrough seizure (Resolved) Change in mental status (Resolved) Hemiparesis (Resolved Unknown) "right hemiparesis " On 08/13/12 00:17 Ham Esteslukasz wrote "right hemiparesis " Hemorrhagic shock (Resolved) Hyperammonemia (Resolved) Hyperkalemia (Resolved) Hypomagnesemia (Resolved) Hyponatremia (Resolved Unknown) Hypoxia (Resolved 02/22/14) Left shoulder pain (Resolved) Leg fracture, right (Resolved) Metabolic encephalopathy (Resolved 03/21/14) Seizure (Resolved) Shoulder pain (Resolved) Sepsis (Unknown) Family History Other No significant family history Social History Preferred Language: Venezuelan Communication Ability: Effective Landcare Facilitator Required: No Beliefs That Will Affect Care: None Current Living Situation: Other Current Living Situation Comment: Júnior Vega (POA) Feels Safe at Home: Yes Safety Concerns: Feels Safe At This Time Smoking Status: Current every day smoker Cigarettes Per Day: 2 Second Hand Exposure: No Hx Alcohol Use: No Hx Substance Use: No Physical Exam Psychiatric: Orientation: alert, oriented x 3 and cooperative (though participation is limited by receptive/expressive aphasia ) Apperance: appropriately dressed (In hospital gown) and appropriately groomed Thin- appearing, male with BMI indicating patient is underweight. Dressed appropriately in hospital gown. Hair and cedeño are long, but well-groomed. At times, patient wears corrective lenses. Level of hygiene and hydration appears adequate. Eye Contact: good eye contact Limited movement, especially on the patient's right side. Patient is observed while laying in bed. Speech: + abnormal rate/rhythm/volume of speech Dysarthric speech due to history of receptive and expressive aphasia. Communication primarily via written questions with simple answers. Patient is able to elaborate on some questions. Although direct verbal communication is limited, patient is able to communicate general ideas through speech. Affect: + blunted affect; no depressed affect and no anxious affect Mood: + depressed mood (But describes mood to be "stable" with medications) and + anxious mood ("Well yeah", improved with current medication regimen) Difficult to accurately assess due to significant aphasia; however, is perceived to be goal-directed and logical at time of assessment Thought Content: reality based without delusions Suicidal Thoughts: denies suicidal thoughts, denies suicidal plan and denies suicidal intent Homicidal Thoughts: denies homicidal thoughts Hallucinations: no auditory hallucinations and no visual hallucinations Cognition: remote memory grossly intact and attention grossly intact; + language not intact Estimated Intelligence: consistent with education level Insight: good insight Judgement: + fair judgement Vital Signs (Past 24 Hours): Last Vital Signs Temp 36.5 C 08/21/18 07:00 Pulse 56 L 08/21/18 07:00 Resp 18 08/21/18 07:00 BP 163/83 H 08/21/18 07:00 Pulse Ox 98 08/21/18 07:00 Review of Systems Constitutional: reports ongoing non-specific pain Cardiovascular: denied Respiratory: denied Gastrointestinal: denied Neurological: denied Psychiatric: denies symptoms other than stated above Total of at least 10 systems reviewed, pertinent positives as above and in HPI. Results & Data Medications Administered Acetaminophen (Tylenol) 650 mg PO TID [facility] Stop: 09/19/18 13:59 Last Admin: 08/20/18 21:19 Dose: 650 mg Documented by: [id number] Admin: 08/20/18 13:52 Dose: 650 mg Documented by: [id number] Enoxaparin Sodium (Lovenox) 40 mg SQ Q24H [facility] Stop: 09/18/18 08:59 Last Admin: 08/20/18 08:54 Dose: 40 mg Documented by: [id number] Admin: 08/19/18 10:02 Dose: 40 mg Documented by: [id number] Escitalopram Oxalate (Lexapro Tab) 5 mg PO DAILY [facility] Stop: 09/18/18 08:59 Last Admin: 08/20/18 08:53 Dose: 5 mg Documented by: [id number] Admin: 08/19/18 09:22 Dose: 5 mg Documented by: [id number] Sodium Chloride (Nss 1000ml) 1,000 mls @ 125 mls/hr IV .Q8H [facility] Stop: 09/18/18 03:19 Last Admin: 08/20/18 23:55 Dose: 125 mls/hr Documented by: [id number] Infusion: 08/20/18 23:55 Dose: 125 mls/hr Documented by: [id number] Admin: 08/20/18 17:15 Dose: 125 mls/hr Documented by: [id number] Infusion: 08/20/18 17:15 Dose: 125 mls/hr Documented by: [id number] Admin: 08/20/18 09:23 Dose: 125 mls/hr Documented by: [id number] Infusion: 08/20/18 09:23 Dose: 125 mls/hr Documented by: [id number] Admin: 08/20/18 02:21 Dose: 125 mls/hr Documented by: [id number] Infusion: 08/20/18 02:21 Dose: 125 mls/hr Documented by: [id number] Admin: 08/19/18 20:14 Dose: 125 mls/hr Documented by: [id number] Infusion: 08/19/18 20:02 Dose: 125 mls/hr Documented by: [id number] Admin: 08/19/18 12:02 Dose: 125 mls/hr Documented by: [id number] Infusion: 08/19/18 11:59 Dose: 125 mls/hr Documented by: [id number] Infusion: 08/19/18 05:20 Dose: 125 mls/hr Documented by: [id number] Admin: 08/19/18 03:58 Dose: 125 mls/hr Documented by: [id number] Lisinopril (Zestril) 20 mg PO DAILY DEZ Stop: 09/18/18 08:59 Last Admin: 08/20/18 08:53 Dose: 20 mg Documented by: [id number] Admin: 08/19/18 09:23 Dose: 20 mg Documented by: [id number] Pantoprazole Sodium (Protonix) 40 mg PO BID [facility] Stop: 09/18/18 08:59 Last Admin: 08/20/18 21:18 Dose: 40 mg Documented by: [id number] Admin: 08/20/18 08:53 Dose: 40 mg Documented by: [id number] Admin: 08/19/18 22:02 Dose: 40 mg Documented by: [id number] Admin: 08/19/18 09:24 Dose: 40 mg Documented by: [id number] Polyethylene Glycol (Miralax Powder Packet) 17 gm PO DAILY DEZ Stop: 09/18/18 08:59 Last Admin: 08/20/18 08:56 Dose: 17 gm Documented by: [id number] Admin: 08/19/18 09:28 Dose: Not Given Documented by: [id number] Potassium Chloride (Klor-Con M20) 20 meq PO BIDM DE[facility] Stop: 09/18/18 08:59 Last Admin: 08/20/18 17:12 Dose: 20 meq Documented by: [id number] Admin: 08/20/18 08:54 Dose: 20 meq Documented by: [id number] Admin: 08/19/18 16:27 Dose: 20 meq Documented by: [id number] Admin: 08/19/18 09:19 Dose: 20 meq Documented by: [id number] Quetiapine Fumarate (Seroquel) 12.5 mg PO TID DEZ Stop: 09/18/18 08:59 Last Admin: 08/20/18 21:19 Dose: 12.5 mg Documented by: [id number] Admin: 08/20/18 13:52 Dose: 12.5 mg Documented by: [id number] Admin: 08/20/18 08:53 Dose: 12.5 mg Documented by: [id number] Admin: 08/19/18 22:02 Dose: 12.5 mg Documented by: [id number] Admin: 08/19/18 13:34 Dose: 12.5 mg Documented by: [id number] Admin: 08/19/18 09:23 Dose: 12.5 mg Documented by: [id number] Thiamine HCl (Vitamin B-1) 100 mg PO QAM DE[facility] Stop: 09/18/18 08:59 Last Admin: 08/20/18 08:53 Dose: 100 mg Documented by: [id number] Admin: 08/19/18 09:24 Dose: 100 mg Documented by: [id number] Tramadol HCl (Ultram) 50 mg PO TID@1000,1700,2200 [facility] Stop: 09/19/18 09:59 Last Admin: 08/20/18 22:06 Dose: 50 mg Documented by: [id number] Admin: 08/20/18 17:12 Dose: 50 mg Documented by: [id number] Admin: 08/20/18 12:07 Dose: 25 mg Documented by: [id number]
[2018-08-21] MEDS: PANTOprazole 40 MG TAB PO SCH ×2 (07:55→22:05)
[2018-08-21] MEDS: QUETIAPINE FUMARATE 25 MG TABLET PO SCH ×3 (07:55→22:05)
[2018-08-21] MEDS: POLYETHYLENE (MIRALAX) 17 GM PACK PO SCH ×2 (07:55→08:03)
[2018-08-21] MEDS: THIAMINE HCL 100 MG TAB PO SCH (07:56)
[2018-08-21] MEDS: LISINOPRIL 20 MG TAB PO SCH (07:56)
[2018-08-21] MEDS: ACETAMINOPHEN 325 MG TAB PO SCH ×3 (07:56→22:05)
[2018-08-21] MEDS: SODIUM CHLORIDE 0.9% 1000ML 1,000 ML IV SCH (07:57)
[2018-08-21] MEDS: NORMOSOL-R 1,000 ML IV SCH ×2 (12:00→20:18)
[2018-08-21] MEDS: TRAMADOL HCL 50 MG TABLET PO SCH ×3 (12:00→22:04)
--- NOTE | 2018-08-21 16:52 | Palliative Care Progress Note ---
Date of Service August 21, 2018 Assessment & Plan (1) Palliative care encounter: Patient is well-known to me from outpatient palliative care clinic. 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 Patient also suffers from expressive and receptive partial a fascia-patient able to communicate best using a white board. Patient's caregiver and POA is Don Vega-phone number is [phone]. Patient seen and examined in his room today-no family or friends at bedside Patient was last seen in palliative clinic on 06/19-both the patient and caregiver reported having more difficulties taking care of him at home-or discussing need for placement in the near future. Patient's weight on his clinic visit was 147# -he has had a 20 pound weight loss since then. Patient has reported on multiple prior occasions his poor quality of life-has not wanted to have any aggressive measures to keep him alive, does have a POLST form filled out-his caregiver will bring it into the hospital. Patient has had poor p.o. intake in the past and was placed on hospice-patient did have some adjustments to his medications, did start eating again and was discharged from hospice approximately a year ago. Patient continues to have a dense right hemiparesis, has left shoulder pain- underwent PT recently that resulted in improvement in his range of motion. Patient requires muscle relaxant as well as 3-4 time a day tramadol for pain related to his prior stroke. Patient and caregiver report decreased p.o. intake since the end of June-weight loss of approximately 20 pounds. Patient reports increased weakness, he gets short of breath and lightheaded with change in position. Patient denies depressed mood-has been well controlled on Lexapro. Patient with some behavioral issues due to his stroke-these have improved with restarting Seroqu el at 12.5 mg 3 times daily. Patient also uses marijuana PRN for pain control as well as for sleep. -Patient is opting for comfort care-he has expressed these wishes on multiple occasions over the past year -CVA-dense right hemiparesis, expressive and receptive aphasia-on lisinopril for blood pressure control, behavioral issues-improved on Seroquel 3 times daily -Hemiparesis-some pain associated with joints due to poor muscle tone-uses tramadol 3-4 times a day -Dlgiyim-wqygjsu-eugm expressive and receptive-communicates well using a white board -Depression-has been stable on Lexapro. Both patient and caregiver report no increased depressive symptoms-psych consult obtained-reviewed note-input appreciated -Chronic pain-left shoulder-did improve with PT/OT. Patient has an appointment with Dr. Hernandez for possible injection at the end of the month. Continue tramadol Will continue to follow and assist both patient and caregiver with medical decision making. Caregiver to bring in patient's home POLST form. Plan is for placement in a facility for continued care. (2) Ischemic stroke: (3) Hemiparesis, right: (4) Expressive aphasia: (5) Depression: (6) Chronic pain: Subjective Patient awake alert, no acute distress. Patient denies discomfort. Patient states he is not eating, reports no appetite. Psych consult reviewed-appreciate input. No new acute issues per nursing. Review of Systems Review of Systems: Patient denies fever, chills, chest pain, shortness of breath, or abdominal pain. Patient reports chronic pain well controlled on Tylenol and tramadol Physical Exam Physical Exam: PE: Awake and alert, no acute distress HEENT: EOMI, hearing within normal limits Respirations: Unlabored, clear breath sounds CV: Regular rate, no edema Abdomen: Soft, nontender Extremities: Right-sided hemiparesis Neuro: Alert and oriented x4 Psych: Cooperative, calm Results & Data Vital Signs (Past 12 Hours) Vital Signs Temp Pulse Resp BP Pulse Ox 08/21/18 15:09 98.1 F 64 18 151/78 H 95 08/21/18 07:00 97.7 F 56 L 18 163/83 H 98 PG Care Time/CCT Total # of Minutes Spent Total Time Spent with Patient: Total time spent is greater than 50% in coordination of care (as documented) at patient's floor/unit and/or counseling patient: Time Spent Attending Total time spent 25 minutes with greater than 50% of the time spent at bedside assessing patient's current condition as well as confirming goals of care.
[2018-08-22] MEDS: NORMOSOL-R 1,000 ML IV SCH (04:07)
[2018-08-22] MEDS: ENOXAPARIN INJ 40 MG/0.4 ML SYR SQ SCH (08:55)
[2018-08-22] MEDS: POTASSIUM CHLORIDE 20 MEQ TABCR PO SCH ×2 (08:55→17:12)
[2018-08-22] MEDS: QUETIAPINE FUMARATE 25 MG TABLET PO SCH ×3 (08:55→22:04)
[2018-08-22] MEDS: PANTOprazole 40 MG TAB PO SCH ×2 (08:55→22:04)
[2018-08-22] MEDS: THIAMINE HCL 100 MG TAB PO SCH (08:56)
[2018-08-22] MEDS: ACETAMINOPHEN 325 MG TAB PO SCH ×3 (08:56→22:03)
[2018-08-22] MEDS: LISINOPRIL 20 MG TAB PO SCH (08:56)
[2018-08-22] MEDS: ESCITALOPRAM OXALATE 10 MG TAB PO SCH (08:57)
[2018-08-22] MEDS: POLYETHYLENE (MIRALAX) 17 GM PACK PO SCH (08:58)
--- NOTE | 2018-08-22 10:56 | Family Medicine Progress Note ---
Date of Service August 22, 2018 Assessment & Plan (1) Depression: Mr. Gardner is a 52-year-old male with a past medical history of ischemic stroke with resultant right sided hemiparesis, receptive and expressive aphasia, hypertension, hyperlipidemia, cardiomyopathy, prior seizures (not on medi cation), alcohol use w/prior admission for withdrawals who was admitted on 19 August 2018 for depression, decreased p.o. intake, and hyponatremia. Depression: -chronic, stable -pt refusing all meals at this time - per review of records, pt has had previous episode of the same in the past (September 2017) -> pt has lost 20 pounds in 2 months, POA having difficulty caring for pt at home -> made NPO per patient's wishes -continue home escitalopram and quetiapine -Palliative care consult placed, thank you for recommendations -Don Vega is power of sports attorney - requesting placement at a SNF due to increased difficulty caring for Mr. Gardner at home -> case management placed referral to [facility] -> psych consult appreciated Hyponatremia, hypomagnesemia - resolved: -Resolved with repletion -maintenance IVF discontinued per patient's wishes -thiamine 100 mg PO daily as a precaution. Hypertension: - Continue home lisinopril. Constipation: - Continue home bisacodyl and MiraLAX. GERD: - Continue home pantoprazole and Reglan. Right shoulder pain: - Continue home scheduled Tylenol and tramadol, as well as Robaxin as needed - pain well controlled on this regimen Prior ischemic stroke: - Right-sided hemiparesis and left-sided weakness, receptive and expressive aphasia. Cardiomyopathy: - ECHO in December 2017 noted EF 45-50% with some regional wall motion abnormalities. Seizures: - By report, has been off medication for this due to previous hospice care. - no seizure activity noted Alcoholism: - Admit ethyl alcohol level < 3. - hx of withdrawals in 2018 - no signs or symptoms of alcohol withdrawal on this admission Polysubstance abuse: - hx of tobacco, alcohol, and marijuana usage. Admit UDS positive for marijuana. Code status: DO NOT RESUSCITATE. Diet: NPO per patient's wishes DVT prophylaxis: Lovenox. PT/OT: report patient is at baseline Dispo: Remains on med/surg. Plan for placement at SNF. (2) Hyponatremia: (3) Hypomagnesemia: (4) Hypertension: (5) Hypercholesterolemia: (6) Constipation: (7) GERD without esophagitis: (8) Right shoulder pain: (9) Ischemic stroke: (10) History of cardiomyopathy: (11) History of seizures: (12) History of alcoholism: Supervising Physician Co-Signing Physician Notes I personally examined the patient and verified all mark points of history and exam, discussed case, and agree with decision making with Dr Holcomb. no new complaints. OOA assessment submitted. case management believes vitals noted nad breathing unlabored no pallor or icterus. goals of care - as above. continue working towards snf if at all possible, caregiver notes home possible if not. assessments underway. Subjective Mr. Gardner expresses frustration today regarding his IVF causing frequent urination. He is requesting that it be turned off and he will increase his p.o intake. He has no other complaints at this time. Review of Systems Cardiovascular: no chest pain, no edema and no calf pain Gastrointestinal: no abdominal pain and no vomiting Genitourinary: + urinary frequency; no dysuria and no difficulty urinating Physical Exam Constitutional: + thin, cooperative and comfortable Respiratory: normal respiratory effort, lungs clear to auscultation Cardiovascular: RRR, no murmur, no edema Gastrointestinal (Abdomen): Percussion/Palpation: abdomen soft; abdomen nontender Neurologic: Speech / Cognition: + expressive aphasia and + receptive aphasia right sided hemiparesis Results & Data Vital Signs (Past 12 Hours) Vital Signs Temp Pulse Resp BP Pulse Ox 08/22/18 07:01 36.6 C 59 L 18 156/82 H 98 08/21/18 23:16 36.4 C L 65 18 161/88 H 97 PG Care Time/CCT Total # of Minutes Spent Total Time Spent with Patient: Total time spent is greater than 50% in coordination of care (as documented) at patient's floor/unit and/or counseling patient: Resident Activity Tracking Resident Involvement: Resident Care Provided Care Provided: Adult Hospital Medicine
[2018-08-22] MEDS: TRAMADOL HCL 50 MG TABLET PO SCH ×3 (11:00→22:03)
--- NOTE | 2018-08-23 06:40 | Family Medicine Progress Note ---
Date of Service August 23, 2018 Assessment & Plan (1) Depression: Mr. Gardner is a 52-year-old male with a past medical history of ischemic stroke with resultant right sided hemiparesis, receptive and expressive aphasia, hypertension, hyperlipidemia, cardiomyopathy, prior seizures (not on medi cation), alcohol use w/prior admission for withdrawals who was admitted on 19 August 2018 for depression, decreased p.o. intake, and hyponatremia. Depression: -chronic, stable -pt refusing all meals at this time - per review of records, pt has had previous episode of the same in the past (September 2017) -> pt has lost 20 pounds in 2 months, POA having difficulty caring for pt at home -> made NPO per patient's wishes -continue home escitalopram and quetiapine -Palliative care consult placed, thank you for recommendations -Don Vega is power of performance reporter - requesting placement at a SNF due to increased difficulty caring for Mr. Gardner at home. If unable to obtain placement, Don will take him back home & continue to care for him -> case management placed referral to [facility] -> psych consult appreciated Seizure Disorder - By report, pt has a known hx of seizure disorders. He has been off medication for this due to previous hospice care. He was previously on Keppra and Lamictal - pt had a witnessed seizure today whilst having his blood work drawn - seizure resolved within 1-2 minutes without intervention - pt was post-ictal at time of my examination, which was already improving. Neurological examination had returned to baseline. Vitals stable. No indication for imaging of brain - basic labs ordered, including CBC, BMP, Mg, and Phos - will restart Keppra, which patient had been on prior. Will load w/1mg of IV keppra, and start 500mg bid, to continue on d/c - pt on tramadol, which can lower seizure threshold, however given significant pain relief w/tramadol, will not d/c at this time - seizure precautions, IV ativan prn seizures Hyponatremia, hypomagnesemia - resolved: -Resolved with repletion -no IVF per patient's wishes -thiamine 100 mg PO daily as a precaution. Hypertension: - Continue home lisinopril. Constipation: - Continue home bisacodyl and MiraLAX. GERD: - Continue home pantoprazole and Reglan. Right shoulder pain: - Continue home scheduled Tylenol and tramadol, as well as Robaxin as needed - pain well controlled on this regimen Prior ischemic stroke: - Right-sided hemiparesis and left-sided weakness, receptive and expressive aphasia. Cardiomyopathy: - ECHO in December 2017 noted EF 45-50% with some regional wall motion abnormalities. Alcoholism: - Admit ethyl alcohol level < 3. - hx of withdrawals in 2018 - no signs or symptoms of alcohol withdrawal on this admission Polysubstance abuse: - hx of tobacco, alcohol, and marijuana usage. Admit UDS positive for marijuana. Code status: DO NOT RESUSCITATE. Diet: NPO per patient's wishes DVT prophylaxis: Lovenox. PT/OT: report patient is at baseline Dispo: Remains on med/surg. Plan for placement. (2) Hyponatremia: (3) Hypomagnesemia: (4) Hypertension: (5) Hypercholesterolemia: (6) Constipation: (7) GERD without esophagitis: (8) Right shoulder pain: (9) Ischemic stroke: (10) History of cardiomyopathy: (11) History of seizures: (12) History of alcoholism: Supervising Physician Co-Signing Physician Notes I personally examined the patient and verified all mark points of history and e xam, discussed case, and agree with decision making with Dr Barbosa. Had a seizure earlier today. Spoke with Gamersband who was in the room to draw labs, she noted that abruptly he arched his head back and then started to have mostly tonic but it sounds like a degree of tonic-clonic movements, she immediately got nursing who also noted it was unmistakably a seizure. Probably lasted about a minute and self arrested. By the time Dr. Barbosa and I arrived to the room, the patient is in no distress with stable vitals but appears clearly postictal. This resolves over approximately 5 to 10 minutes of a slow fade back to what appears to be his normal mental state. Vitals noted, in general he is awake and alert and initially fairly incoherent fades back to what appears to be his baseline mentation. He shows no distress, no respiratory distress, no focal neurologic deficits. Skin shows no rashes, pallor, or icterus. Anuja has a known seizure disorder, he had been off of his anticonvulsants, and his overall goals are palliative. He is on a number of medications that can lower the seizure threshold, but they seem to be helping quite significantly with quality of life, so after discussion with the team, as well as discussion with the patient as best as it seems he can understand, we are all in agreement of adding an anticonvulsant rather than removing medications such as his tramadol, Seroquel, or Lexapro (which could lower his seizure threshold, but seem to be improving his quality of life). Keppra restarted, first 2000 mg given IV x1, and then transition to 500 twice daily. Patient checked on a few hours later and he appeared to be sleeping comfortably in no distress. Otherwise as above. Subjective Mr. Gardner reports he feels well today. He states his mood is stable. He actually notes feeling slightly better today than yesterday. He is agreeable to checking lab work today. He has no other complaints. Review of Systems Constitutional: + anorexia; no fever and no chills Respiratory: no cough and no dyspnea Cardiovascular: no chest pain, no edema and no calf pain Psychiatric: no depression Physical Exam Constitutional: WD/WN, vitals as above + thin, cooperative and comfortable Respiratory: normal respiratory effort, lungs clear to auscultation Cardiovascular: RRR, no murmur, no edema Gastrointestinal (Abdomen): Percussion/Palpation: abdomen soft; abdomen nontender and abdomen not rigid Neurologic: Speech / Cognition: + expressive aphasia and + receptive aphasia Results & Data Vital Signs (Past 12 Hours) Vital Signs Temp Pulse Resp BP Pulse Ox 08/22/18 23:19 36.5 C 81 20 158/91 H 98 PG Care Time/CCT Total # of Minutes Spent Total Time Spent with Patient: Total time spent is greater than 50% in coordination of care (as documented) at patient's floor/unit and/or counseling patient: Resident Activity Tracking Resident Involvement: Resident Care Provided Care Provided: Adult Hospital Medicine
[2018-08-23] MEDS: POTASSIUM CHLORIDE 20 MEQ TABCR PO SCH ×2 (09:01→17:02)
[2018-08-23] MEDS: QUETIAPINE FUMARATE 25 MG TABLET PO SCH ×3 (09:02→20:16)
[2018-08-23] MEDS: ESCITALOPRAM OXALATE 10 MG TAB PO SCH (09:03)
[2018-08-23] MEDS: PANTOprazole 40 MG TAB PO SCH ×2 (09:03→20:16)
[2018-08-23] MEDS: LISINOPRIL 20 MG TAB PO SCH (09:03)
[2018-08-23] MEDS: THIAMINE HCL 100 MG TAB PO SCH (09:04)
[2018-08-23] MEDS: ACETAMINOPHEN 325 MG TAB PO SCH ×3 (09:04→20:16)
[2018-08-23] MEDS: POLYETHYLENE (MIRALAX) 17 GM PACK PO SCH (09:05)
[2018-08-23] MEDS: ENOXAPARIN INJ 40 MG/0.4 ML SYR SQ SCH (09:06)
[2018-08-23] MEDS ORDERED: LORazepam 1 MG/2 ML VIAL IV PRN (10:27)
[2018-08-23 10:57] LABS: Basophils # (auto) 0.02 K/uL (0-0.2); Basophils % (auto) 0.5 %; Eosinophils # (auto) 0.03 K/uL (0-0.5); Eosinophils % (auto) 0.8 %; Hemoglobin 13.5 g/dL (14.0-18.0); Lymphocytes # (auto) 1.71 K/uL (1.2-3.4); Lymphocytes % (auto) 44.8 %; Mean Corpuscular Hgb Conc 36.5 g/dL (32-36); Mean Corpuscular Volume 86.4 fL (80-100); Monocytes # (auto) 0.45 K/uL (0.11-0.59); Monocytes % (auto) 11.8 %; Neutrophils # (auto) 1.61 K/uL (1.4-6.5); Neutrophils % (auto) 42.1 %; Platelet Count 178 K/uL (130-400); Red Blood Count 4.28 M/uL (4.7-6.1); White Blood Count 3.82 K/uL (4.8-10.8)
[2018-08-23] MEDS ORDERED: SOD PHOSPHATE/SOD BIPHOSPHATE ENEMA 132 ML BTL PR PRN (11:00)
[2018-08-23 11:26] LABS: BUN Creatinine Ratio 4.5 (10-20); Calcium 9.1 mg/dl (8.5-10.1); Creatinine Clr Calc Pharmacy 76.9 ml/min; Est GFR (African American) 112.6; Est GFR (Non-African American) 97.2; Magnesium 1.5 mg/dl (1.8-2.4); Phosphorus 2.8 mg/dl (2.5-4.9); Potassium 4.2 mmol/L (3.5-5.1)
[2018-08-23] MEDS ORDERED: MAGNESIUM SULFATE / D5W 1 GM/100 ML BAG IV ONE (11:45)
[2018-08-23] MEDS: TRAMADOL HCL 50 MG TABLET PO SCH ×3 (12:10→22:01)
--- NOTE | 2018-08-23 14:59 | Palliative Care Progress Note ---
Date of Service August 23, 2018 Assessment & Plan (1) Palliative care encounter: Patient is well-known to me from outpatient palliative care clinic. 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 Patient also suffers from expressive and receptive partial a fascia-patient able to communicate best using a white board. Patient's caregiver and POA is Don Vega-phone number is [phone]. Patient seen and examined in his room today-no family or friends at bedside Patient was last seen in palliative clinic on 06/19-both the patient and caregiver reported having more difficulties taking care of him at home-or discussing need for placement in the near future. Patient's weight on his clinic visit was 147# -he has had a 20 pound weight loss since then. Patient has reported on multiple prior occasions his poor quality of life-has not wanted to have any aggressive measures to keep him alive, does have a POLST form filled out-his caregiver will bring it into the hospital. Patient has had poor p.o. intake in the past and was placed on hospice-patient did have some adjustments to his medications, did start eating again and was discharged from hospice approximately a year ago. Patient continues to have a dense right hemiparesis, has left shoulder pain- underwent PT recently that resulted in improvement in his range of motion. Patient requires muscle relaxant as well as 3-4 time a day tramadol for pain related to his prior stroke. Patient and caregiver report decreased p.o. intake since the end of June-weight loss of approximately 20 pounds. Patient reports increased weakness, he gets short of breath and lightheaded with change in position. Patient denies depressed mood-has been well controlled on Lexapro. Patient with some behavioral issues due to his stroke-these have improved with restarting Seroq uel at 12.5 mg 3 times daily. Patient also uses marijuana PRN for pain control as well as for sleep. -Patient is opting for comfort care-he has expressed these wishes on multiple occasions over the past year -CVA-dense right hemiparesis, expressive and receptive aphasia-on lisinopril for blood pressure control, behavioral issues-improved on Seroquel 3 times daily -Hemiparesis-some pain associated with joints due to poor muscle tone-uses tramadol 3-4 times a day -[id number] expressive and receptive-communicates well using a white board -Depression-has been stable on Lexapro. Both patient and caregiver report no increased depressive symptoms-psych consult obtained-reviewed note-input appreciated -Chronic pain-left shoulder-did improve with PT/OT. Patient has an appointment with Dr. Hernandez for possible injection at the end of the month. Continue tramadol -Seizures-patient with a seizure history after CVA-has been off antiseizure meds for quite some time-agree with restarting Keppra, continue to monitor closely. May need to increase interval between tramadol doses as patient becomes more dehydrated due to poor p.o. intake Will continue to follow and assist both patient and caregiver with medical decision making. Caregiver to bring in patient's home POLST form. Plan is for placement in a facility for continued care. (2) Ischemic stroke: (3) Hemiparesis, right: (4) Expressive aphasia: (5) Depression: (6) Chronic pain: Subjective Patient awake and alert, no acute distress. Patient denies any new issues Patient reportedly had some seizure activity earlier today-patient was restarted on Keppra. Agree with trying to avoid decreasing his tramadol as this is keeping his pain under control. Patient has not had any seizures for an extended period of time-we will continue to monitor. Review of Systems Review of Systems: Patient denies fever, chills, chest pain, increased shortness of breath, or abdominal pain positive for anorexia Physical Exam Physical Exam: PE: NAD HEENT: Hearing within normal limits Respirations: Unlabored CV: Tachycardic Abdomen: Not distended Extremities: Dense right hemiparesis Neuro: No new deficits-did have observed seizure activity earlier today Psych: No change in mood or affect Results & Data Vital Signs (Past 12 Hours) Vital Signs Temp Pulse Resp BP Pulse Ox 08/23/18 10:10 107 H 22 124/82 98 08/23/18 07:18 97.7 F 72 16 150/84 H 96 PG Care Time/CCT Total # of Minutes Spent Total Time Spent with Patient: Total time spent is greater than 50% in coordination of care (as documented) at patient's floor/unit and/or counseling patient: Time Spent Attending Total time spent 25 minutes with greater than 50% of the time spent at bedside assessing patient's current mood, and comfort level.
[2018-08-23] MEDS: levETIRAcetam 500 MG TAB PO SCH (20:17)
[2018-08-24] MEDS: ESCITALOPRAM OXALATE 10 MG TAB PO SCH (08:30)
[2018-08-24] MEDS: QUETIAPINE FUMARATE 25 MG TABLET PO SCH ×2 (08:30→14:06)
[2018-08-24] MEDS: PANTOprazole 40 MG TAB PO SCH (08:30)
[2018-08-24] MEDS: LISINOPRIL 20 MG TAB PO SCH (08:31)
[2018-08-24] MEDS: POTASSIUM CHLORIDE 20 MEQ TABCR PO SCH ×2 (08:31→17:04)
[2018-08-24] MEDS: levETIRAcetam 500 MG TAB PO SCH (08:31)
[2018-08-24] MEDS: POLYETHYLENE (MIRALAX) 17 GM PACK PO SCH ×2 (08:31→08:33)
[2018-08-24] MEDS: ENOXAPARIN INJ 40 MG/0.4 ML SYR SQ SCH (08:31)
[2018-08-24] MEDS: THIAMINE HCL 100 MG TAB PO SCH (08:31)
[2018-08-24] MEDS: ACETAMINOPHEN 325 MG TAB PO SCH ×2 (08:32→14:06)
[2018-08-24] MEDS: TRAMADOL HCL 50 MG TABLET PO SCH ×2 (10:29→12:07)
--- NOTE | 2018-08-24 12:23 | Family Medicine Progress Note ---
Date of Service August 24, 2018 Assessment & Plan (1) Depression: Mr. Gardner is a 52-year-old male with a past medical history of ischemic stroke with resultant right sided hemiparesis, receptive and expressive aphasia, hypertension, hyperlipidemia, cardiomyopathy, prior seizures (not on medi cation), alcohol use w/prior admission for withdrawals who was admitted on 19 August 2018 for depression, decreased p.o. intake, and hyponatremia. Depression: -chronic, stable -pt refusing all meals at this time - per review of records, pt has had previous episode of the same in the past (September 2017) -> pt has lost 20 pounds in 2 months, POA having difficulty caring for pt at home -> made NPO per patient's wishes -no IVF per patient's wishes -thiamine supplementation started on admission -continue home escitalopram and quetiapine -Palliative care consult placed, thank you for recommendations -Don Vega is power of insurance attorney - requesting placement at a SNF due to increased difficulty caring for Mr. Gardner at home. If unable to obtain placement, Don will take him back home & continue to care for him -> case management placed referral to [facility] -> psych consult appreciated Seizure Disorder - By report, pt has a known hx of seizure disorders. He has been off medication for this due to previous hospice care. He was previously on Keppra and Lamictal - pt had a witnessed seizure on 08/23 whilst having his blood work drawn - seizure resolved within 1 minutes without intervention - Keppra restarted on 08/23, which patient had been on prior. He is on 500mg bid, to continue on d/c - seizure and keppra likely the cause of his grogginess - continue to monitor. If by next week, he is still complaining of this, consider decreasing Keppra to 250mg BID - pt on tramadol, which can lower seizure threshold, however given significant pain relief w/tramadol, will not d/c at this time - seizure precautions, IV ativan prn seizures Hypertension: - Continue home lisinopril. Constipation: - Continue home bisacodyl and MiraLAX. GERD: - Continue home pantoprazole and Reglan. Right shoulder pain: - Continue home scheduled Tylenol and tramadol, as well as Robaxin as needed - pain well controlled on this regimen - changed tramadol regimen to 10AM, 5PM and 10PM as per patient's wishes Prior ischemic stroke: - Right-sided hemiparesis and left-sided weakness, receptive and expressive aphasia. Cardiomyopathy: - ECHO in December 2017 noted EF 45-50% with some regional wall motion abnormalities. Alcoholism: - Admit ethyl alcohol level < 3. - hx of withdrawals in 2018 - no signs or symptoms of alcohol withdrawal on this admission Polysubstance abuse: - hx of tobacco, alcohol, and marijuana usage. Admit UDS positive for marijuana. Code status: DO NOT RESUSCITATE. Diet: NPO per patient's wishes DVT prophylaxis: Lovenox. PT/OT: report patient is at baseline Dispo: Remains on med/surg. Plan for placement. (2) Hyponatremia: (3) Hypomagnesemia: (4) Hypertension: (5) Hypercholesterolemia: (6) Constipation: (7) GERD without esophagitis: (8) Right shoulder pain: (9) Ischemic stroke: (10) History of cardiomyopathy: (11) History of seizures: (12) History of alcoholism: Subjective Mr. Gardner reports that he felt quite groggy yesterday, and was frequently falling asleep. He states that this is improved this morning. He is eager to learn of his discharge plans. He has no other complaints today. Review of Systems Constitutional: + fatigue and + anorexia; no fever and no chills Cardiovascular: no chest pain and no edema Gastrointestinal: no abdominal pain, no nausea and no vomiting Physical Exam Constitutional: WD/WN, vitals as above cooperative and comfortable Respiratory: normal respiratory effort, lungs clear to auscultation Cardiovascular: RRR, no murmur, no edema Gastrointestinal (Abdomen): Percussion/Palpation: abdomen soft; abdomen nontender Neurologic: Speech / Cognition: + expressive aphasia and + receptive aphasia right sided hemiparesis Results & Data Vital Signs (Past 12 Hours) Vital Signs Temp Pulse Resp BP Pulse Ox 08/24/18 07:59 36.2 C L 79 20 142/82 H 96 PG Care Time/CCT Total # of Minutes Spent Total Time Spent with Patient: Total time spent is greater than 50% in coordination of care (as documented) at patient's floor/unit and/or counseling patient: Resident Activity Tracking Resident Involvement: Resident Care Provided Care Provided: Adult [facility] Medicine
--- NOTE | 2018-08-24 15:07 | Palliative Care Progress Note ---
Date of Service August 24, 2018 Assessment & Plan (1) Palliative care encounter: (1) Palliative care encounter: Patient is well-known to me from outpatient palliative care clinic. 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 Patient also suffers from expressive and receptive partial a fascia-patient able to communicate best using a white board. Patient's caregiver and POA is Don Vega-phone number is [phone]. Patient seen and examined in his room today-no family or friends at bedside Patient was last seen in palliative clinic on 06/19-both the patient and caregiver reported having more difficulties taking care of him at home-or discussing need for placement in the near future. Patient's weight on his clinic visit was 147# -he has had a 20 pound weight loss since then. Patient has reported on multiple prior occasions his poor quality of life-has not wanted to have any aggressive measures to keep him alive, does have a POLST form filled out-his caregiver will bring it into the hospital. Patient has had poor p.o. intake in the past and was placed on hospice-patient did have some adjustments to his medications, did start eating again and was discharged from hospice approximately a year ago. Patient continues to have a dense right hemiparesis, has left shoulder pain- underwent PT recently that resulted in improvement in his range of motion. Patient requires muscle relaxant as well as 3-4 time a day tramadol for pain related to his prior stroke. Patient and caregiver report decreased p.o. intake since the end of June-weight loss of approximately 20 pounds. Patient reports increased weakness, he gets short of breath and lightheaded with change in position. Patient denies depressed mood-has been well controlled on Lexapro. Patient with some behavioral issues due to his stroke-these have improved with restarting Seroquel at 12.5 mg 3 times daily. Patient also uses marijuana PRN for pain control as well as for sleep. -Patient is opting for comfort care-he has expressed these wishes on multiple occasions over the past year -CVA-dense right hemiparesis, expressive and receptive aphasia-on lisinopril for blood pressure control, behavioral issues-improved on Seroquel 3 times daily -Hemiparesis-some pain associated with joints due to poor muscle tone-uses tramadol 3-4 times a day -[id number] expressive and receptive-communicates well using a white board -Depression-has been stable on Lexapro. Both patient and caregiver report no increased depressive symptoms-psych consult obtained-reviewed note-input appreciated -Chronic pain-left shoulder-did improve with PT/OT. Patient has an appointment with Dr. Hernandez for possible injection at the end of the month. Continue tramadol -Seizures-patient with a seizure history after CVA-has been off antiseizure meds for quite some time-agree with restarting Keppra, continue to monitor closely. May need to increase interval between tramadol doses as patient becomes more dehydrated due to poor p.o. intake Will continue to follow and assist both patient and caregiver with medical decision making. Caregiver to bring in patient's home POLST form. Plan is for placement in a facility for continued care. (2) Ischemic stroke: (3) Hemiparesis, right: (4) Expressive aphasia: Partial expressive and receptive aphasia-communicates best refusing whiteboard (5) Depression: Doing well on Lexapro (6) Chronic pain: Continue Robaxin and tramadol (2) Seizure disorder: Recent seizure activity-Keppra restarted (3) Hemiparesis, right: No new deficits (4) Aphasia: Partial receptive as well as expressive aphasia-communicates with whiteboard (5) Depression: Well-controlled on current dose of Lexapro (6) Chronic pain: Continue Robaxin and tramadol Subjective Patient awake alert, no acute distress. Patient states he is comfortable, no new issues. Patient's urine output is 1500 cc in 24 hours, input 610 cc. Patient not taking p.o. solids, just fluids occasionally and with meds. Patient refusing medications at times-primarily has Tylenol, Seroquel and MiraLAX. Review of Systems Review of Systems: Patient denies fever, chills, chest pain, increased shortness of breath, or abdominal pain Physical Exam Physical Exam: PE: No acute distress HEENT: EOMI, hearing within normal limits Respirations: Unlabored, adequate saturation on room air CV: Regular rate Abdomen: Soft, nontender Extremities: Right hemiparesis Neuro: Alert and oriented Results & Data Vital Signs (Past 12 Hours) Vital Signs Temp Pulse Resp BP Pulse Ox 08/24/18 07:59 97.2 F L 79 20 142/82 H 96 PG Care Time/CCT Total # of Minutes Spent Total Time Spent with Patient: Total time spent is greater than 50% in coordination of care (as documented) at patient's floor/unit and/or counseling patient: Time Spent Attending Total time spent 25 minutes with greater than 50% of the time spent at bedside assessing patient's level of comfort and assessing his goals of care.
[2018-08-24 16:02] VITALS: BP 129/83; TEMP 97.9; O2SAT 97
--- NOTE | 2018-08-24 16:20 | Discharge Summary ---
Date of Service August 24, 2018 Admission HPI Per Admitting Provider Jim "Brianne Gardner is a 52-year-old male admitted medically on 08/18/18 after presenting to the ED with desire to be place on hospice. Pt was reportedly requesting placement in a SNF, as it has been reported that his partner and pot fisher has had increasing difficulty caring for the patient at home. Psychiatric consultation is requested to evaluate appropriateness of transfer as it relates to his psychiatric history. Pt was last seen on our service by this provider on 09/29/17 during a hospitalization for a suicide attempt, in which patient had self-inflicted lacerations to his right forearm. At time of eval uation, patient is seen individually in his room. Per patient, his partner/pot fisher had stepped out of the room for lunch. Patient verbalized understanding of provider's introductions and reason for consultation. This provider had several prepared written questions and also utilized a dry erase board to ensure clear communication with the patient. Patient reports that today he is feeling "in pain" but admits that as needed pain medications are effective for managing this. Patient states that his mood over the last month has been "stable". When asked about the presence of anxiety, the patient states "well yeah", but feels that it is well managed with his current medication regimen. Patient denies auditory or visual hallucinations, and denies presence of homicidal ideation. Patient patient denies any active suicidal thoughts, but in general is able to verbalize that he no longer desires to prolong his life. Patient indicates through physical gestures and dysarthric speech that he recognizes that his quality of life is reduced. Patient continues to state in general that his mood and anxiety are well managed, but his overall hopefulness for improvement of his condition is very low. Patient states that he has no active suicidality or plan to harm himself physically. He does verbalize that if transferred to a [facility] facility, he would not take any steps towards his demise. Patient does openly state that he is "ready to be done." Patient denies any other psychiatric concerns, and does indicate agreement with us communicating with his partner as necessary for any additional information. Admission Exam Per Admitting Provider GENERAL: Awake, alert, generally well-appearing but thin habitus, does not appear in immediate distress. HENT: Normocephalic, atraumatic. Oropharynx mildly dry. EYES: Normal conjunctiva. Sclera non-icteric. NECK: Inspection normal. Non-tender. Supple and full ROM. CARDIAC: +S1S2 RRR, no murmurs. RESPIRATORY: Clear to auscultation. No wheezes or rales. Normal respiratory effort. GI: +BS, soft, non-distended. Questionable mild diffuse tenderness to palpation. No rebound or guarding. EXTREMITIES: No pedal edema bilaterally or left calf tenderness. NEURO: Noted receptive and expressive aphasia on attempts at verbal conversation. Does much better with understanding of written text. Right-sided hemiparesis. Good flask cleaner strength and can write with left arm. Principal Diagnosis Depression, Seizure Disorder Discharge Exam Constitutional cooperative and comfortable Respiratory normal respiratory effort, lungs clear to auscultation Cardiovascular RRR, no murmur, no edema Gastrointestinal (Abdomen) Percussion/Palpation: abdomen soft; abdomen nontender and abdomen not rigid Neurologic Speech / Cognition: + expressive aphasia and + receptive aphasia right sided hemiparesis Discharge Data Allergies Allergy/AdvReac Type Severity Reaction Status Date / Time codeine Allergy Mild HIVES Verified 08/18/18 22:48 Consultations 08/19/18 01:02 ED Decision to Admit Stat 08/19/18 03:20 Consult Palliative Care Routine 08/19/18 12:34 Consult Case Management - Discharge Planning Routine 08/20/18 14:55 Consult Psychiatry Routine Hospital Course (1) Depression: Mr. Gardner is a 52-year-old male with a past medical history of ischemic stroke with resultant right sided hemiparesis, receptive and expressive aphasia, hypertension, hyperlipidemia, cardiomyopathy, prior seizures (not on medications), alcohol use w/prior admission for withdrawals who was admitted on 19 August 2018 for depression, decreased p.o. intake, and hyponatremia. Depression: -chronic, stable -pt refusing all meals at this time - per review of records, pt has had previous episode of the same in the past (September 2017) -> pt has lost 20 pounds in 2 months, POA having difficulty caring for pt at home -> made NPO per patient's wishes -no IVF per patient's wishes -goal was placement at SNF, however this was not able to be arranged as [facility] did not feel he required placement -PT/OT robertals felt pt was at baseline -continue escitalopram and quetiapine -Palliative care and psych were consulted to assist in management Seizure Disorder - By report, pt has a known hx of seizure disorders. He has been off medication for this due to previous hospice care. He was previously on Keppra and Lamictal - pt had a witnessed seizure on 08/23 whilst having his blood work drawn - seizure resolved within 1 minutes without intervention - Keppra restarted on 08/23, which patient had been on prior. He is on 500mg bid, to continue on d/c - pt was groggy on 08/23 - seizure and keppra likely the cause - continue to monitor on d/c - if on f/u, he is still complaining of this, consider decreasing Keppra to 250mg BID - pt on tramadol, which can lower seizure threshold, however given significant pain relief w/tramadol, will not d/c at this time. Recommend decreasing dose from QID to TID Hypertension: - Continue home lisinopril. Constipation: - Continue home bisacodyl and MiraLAX. GERD: - Continue home pantoprazole and Reglan. Right shoulder pain: - Continue home scheduled Tylenol and tramadol, as well as Robaxin as needed - pain well controlled on this regimen - pt has f/u with Dr. Hernandez for possible injection at the end of the month Prior ischemic stroke: - Right-sided hemiparesis and left-sided weakness, receptive and expressive aphasia. Cardiomyopathy: - ECHO in December 2017 noted EF 45-50% with some regional wall motion abnormalities. Alcoholism: - Admit ethyl alcohol level < 3. - hx of withdrawals in 2018 - no signs or symptoms of alcohol withdrawal during this admission Polysubstance abuse: - hx of tobacco, alcohol, and marijuana usage. Admit UDS positive for marijuana. (2) Hyponatremia: (3) Hypomagnesemia: (4) Hypertension: (5) Hypercholesterolemia: (6) Constipation: (7) GERD without esophagitis: (8) Right shoulder pain: (9) Ischemic stroke: (10) History of cardiomyopathy: (11) History of seizures: (12) History of alcoholism: Total Time Total Time Spent Total Time Spent (In Minutes): <30 Discharge Plan Discharge Items Patient Disposition: Home - Self-Care Reason For Visit: DEPRESSION, HYPONATREMIA Discharge Diagnosis: Depression, seizure disorder Discharge Goals: Decrease discomfort and Improve function Activity: Resume your previous activity Non-emergency contact: Primary Care Provider Call non-emergency contact if: you have any medication questions, your symptoms worsen and you have a fever Follow-up/Referrals: Meghan Dewitt MD [Primary Care Provider] - Diet: Regular Addtl Provider Instructions: Mr. Gardner, you were seen at [facility] to try and obtain placement for you at a nursing facility. Unfortunately, this was unsuccessful. While you were here, you had a seizure. This resolved without us needing to give you any medications, however we will be discharging you home on a previous medication that you used to take for your seizures. This medication is called Keppra. We recommend that you take 500 mg twice a day. If you still feel groggy next week, while being on this medication, you can talk to your family doctor about decreasing the dose to 250 mg twice a day instead. Please continue to take your other medications as prescribed. We do recommend that you take your tramadol 3 times a day instead of 4 times a day, as this can sometimes provoke seizures. Please follow-up with your family doctor. If you have any fever, chills, or any symptoms that are concerning to you, please seek medical attention. Prescriptions: New levetiracetam [Keppra] 500 mg Tablet 500 mg PO BID Qty: 60 RF: 3 Continued acetaminophen 650 mg tablet extended release 650 mg PO TID RF: 0 quetiapine 25 mg tablet 12.5 mg PO TID RF: 0 bisacodyl 10 mg Suppository 10 mg AR DAILY PRN (Reason: Constipation) RF: 0 methocarbamol 500 mg Tablet 500 mg PO QID PRN (Reason: muscle spasms) RF: 0 ondansetron HCl [Zofran] 4 mg Tablet 4 mg PO Q6H PRN (Reason: nausea/vomiting) RF: 0 polyethylene glycol 3350 [Miralax] 17 gram Powder In Packet 17 g PO DAILY RF: 0 pantoprazole 40 mg Tablet,Delayed Release (Dr/Ec) 40 mg PO BID RF: 0 lisinopril 20 mg tablet 20 mg PO DAILY RF: 0 tramadol 50 mg tablet 50 mg PO QID RF: 0 escitalopram oxalate 5 mg tablet 5 mg PO DAILY RF: 0 Stand-Alone Forms: My [facility] Discharge Orders: Discharge Order (Routine); Ordered 08/24/18 Ordered By: Kamini Barbosa Admission Data Admit Date/Time: 08/19/18 02:36 Attending Provider: Mustapha Adair Admit Provider: Sherman Wallace Primary Care Provider: Meghan Dewitt Other Providers: Mariajose Piper ; Meghan Dewitt ; Aleisha Teague ; Estella Solomon Service: Medical Other Interventions: Discharge Summary Assessment (RN) Last Done: 08/24/18 17:11 DC Date/Time DO NOT enter until pt leaves facility: 08/24/18 17:22 Supervising Physician Co-Signing Physician Notes I personally examined the patient and verified all mark points of history and exam, discussed case, and agree with decision making with Dr Barbosa. feeling better, maybe a little groggy from keppra but right now ok w watchful waiting for next several days. unfortunately not approved for snf, caregiver ok w taking care of him at home Seizuresee prior discussions but for quality of life continue lexapro, seroquel and tramadol (maybe titrate tramadol over time as PO intake decreases). for now dc on keppra 500mg bid, but if fatigue continues can consider cutting dose in half dispo - home w caregiver Otherwise as above.
[2018-08-24] MEDS ORDERED: TRAMADOL HCL 50 MG TABLET PO SCH ×3 (17:00)
[2018-08-24 17:14] VITALS: PULSE 85
== END 2018-08-24 17:22 | disposition home or self-care (01) | DRG 881 ==
LOC: ED 22:30 → 4E 08-19 02:36 → SUATTDRO 08-19 02:36 → 4E 08-19 03:06

== ENCOUNTER 2018-11-29 21:34 | Inpatient (IN) ==
[2018-11-29 22:56] LABS: Basophils # (auto) 0.01 K/uL (0-0.2); Basophils % (auto) 0.1 %; Eosinophils # (auto) 0.03 K/uL (0-0.5); Eosinophils % (auto) 0.2 %; Immature Granulocytes # (auto) 0.04 K/uL (0.00-0.02); Immature Granulocytes % (auto) 0.3 %; Mean Corpuscular Hemoglobin 33.4 pg (25-34); Mean Corpuscular Hgb Conc 35.9 g/dL (32-36); Mean Corpuscular Volume 93.1 fL (80-100); Mean Platelet Volume 10.2 fL (7.4-10.4); Monocytes # (auto) 1.11 K/uL (0.11-0.59); Monocytes % (auto) 7.7 %; Neutrophils # (auto) 10.64 K/uL (1.4-6.5); Neutrophils % (auto) 73.7 %; Platelet Count 190 K/uL (130-400); RDW Coefficient of Variation 12.1 % (11.5-14.5); RDW Standard Deviation 41.1 fL (36.4-46.3); Red Blood Count 4.19 M/uL (4.7-6.1); White Blood Count 14.43 K/uL (4.8-10.8)
[2018-11-29 23:13] LABS: Alanine Aminotransferase 10 U/L (12-78); Albumin Level 4.3 gm/dl (3.4-5.0); Aspartate Aminotransferase 10 U/L (15-37); BUN Creatinine Ratio 13.1 (10-20); Blood Urea Nitrogen 22 mg/dl (7-18); Calcium 8.6 mg/dl (8.5-10.1); Carbon Dioxide 21 mmol/L (21-32); Chloride 100 mmol/L (98-107); Est GFR (African American) 51.8; Est GFR (Non-African American) 44.7; Glucose 85 mg/dl (70-99); Potassium 3.9 mmol/L (3.5-5.1); Sodium 131 mmol/L (136-145)
[2018-11-29 23:20] LABS: Salicylate 3.3 mg/dl (2.8-20)
[2018-11-29 23:24] LABS: Alkaline Phosphatase 67 U/L (45-117); Bilirubin,Total 0.7 mg/dl (0.2-1); Globulin 2.2 gm/dl (2.5-4.0); Thyroid Stimulating Hormone 0.135 uIu/ml (0.300-4.500); Total Protein 6.5 gm/dl (6.4-8.2)
[2018-11-29 23:36] LABS: T4 Free Thyroxine 1.27 ng/dl (0.8-1.6)
[2018-11-29 23:50] LABS: Appearance Urine Clear (Clear); Bacteria Urine Automated Negative (Negative); Bilirubin Urine Negative (Negative); Blood Urine Negative (Negative); Color Urine Yellow; Epithelial Cell Urine Auto >30 /lpf (0-5); Glucose Urine UA Negative (Negative); Ketones Urine Negative (Negative); Leukocyte Esterase Urine Negative (Negative); Nitrite Urine Negative (Negative); Protein Urine Trace (Negative); RBC Urine Automated 0-4 /hpf (0-4); Specific Gravity Urine 1.019 (1.000-1.030); Urobilinogen Urine Negative (Negative)
[2018-11-30 00:07] LABS: Amphetamines+Metham, Urine Neg (Neg); Barbiturates, Urine Neg (Neg); Benzodiazepine, Urine Neg (Neg); Cocaine, Urine Neg (Neg); MDMA (Ecstacy), Urine Neg (Neg); Methadone, Urine Neg (Neg); Opiate, Urine Neg (Neg); Phencyclidine, Urine Neg (Neg)
[2018-11-30 01:07] LABS: Magnesium 1.6 mg/dl (1.8-2.4)
[2018-11-30] MEDS ORDERED: MAGNESIUM OXIDE 400 MG TAB PO STA (01:52)
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
--- NOTE | 2018-11-30 03:29 | Emergency Department Note ---
ED Visit Note This case was signed out to me at change of shift awaiting further evaluation and possible placement to a psychiatric facility. 0425: The patient is extremely anxious and has had frequent episodes of urination. Urinalysis shows no signs of infection. He was given 1 mg of sublingual Ativan. 0515: The patient was requesting something for shoulder pain. He was given a 50 mg dose of tramadol. . : Depression Qualifiers: Depression Type: unspecified Qualified Code(s): F32.9 - Major depressive disorder, single episode, unspecified Hemiplegia Qualifiers: Hemiplegia type: flaccid Hemiplegia etiology: late effect of cerebrovascular disease Cerebrovascular disease type: unspecified Hemiplegia laterality: right dominant side Qualified Code(s): I69.951 - Hemiplegia and hemiparesis following unspecified cerebrovascular disease affecting right dominant side
[2018-11-30] MEDS ORDERED: LORazepam 1 MG TAB SL STA (04:23)
[2018-11-30] MEDS ORDERED: TRAMADOL HCL 50 MG TABLET PO STA (05:15)
--- NOTE | 2018-11-30 06:37 | Ultrasound Report ---
US renal/blad retro comp HISTORY: 52 years-old Male RAVEN acute kidney injury COMPARISON: CT 09/29/2017 TECHNIQUE: Multiple real-time sonographic images of the kidneys and urinary bladder were obtained ass essing grayscale appearance and color flow FINDINGS: Right kidney measures 9.1 cm in length and is unremarkable without renal calculi or hydronephrosis. T he left kidney measures 9.5 cm in length and is also unremarkable without renal calculi or hydronephr osis. Urinary bladder is unremarkable. Ureteral jets are not visualized. IMPRESSION: Unremarkable sonographic appearance of the kidneys and urinary bladder. The above report was generated using voice recognition software. It may contain grammatical, syntax o r spelling errors. Electronically signed by: Sherman Silverio M.D. 11/30/2018 6:35 AM
[2018-11-30] MEDS ORDERED: MAGNESIUM SULFATE / D5W 1 GM/100 ML BAG IV STA (08:09)
[2018-11-30] MEDS ORDERED: SODIUM CHLORIDE 0.9% 500 ML IV ONE (08:09)
--- NOTE | 2018-11-30 08:10 | Emergency Department Note ---
ED Visit Note The patient was taken in signout from Mao at the change of shift who received signout from Dr. Myers. Please see that note for details. The patient was pending psychiatric evaluation for possible placement after he made suicidal comments if he were to be discharged back home. History of CVA, minimally verbal and non-ambulatory at baseline. Per signout primary menagerie caretaker is unable to care for patient. Review of patient's lab work does demonstrate mild RAVEN when compared to recent values. Magnesium 1.6 with repletion provided. Thus, patient more likely to benefit from medical admission for medical optimization and likely placement into long-term SNF. Case d/w Dr. Daniel, [facility] [place], who will evaluate the patient for admission. . : Depression Qualifiers: Depression Type: unspecified Qualified Code(s): F32.9 - Major depressive disorder, single episode, unspecified Hemiplegia Qualifiers: Hemiplegia type: flaccid Hemiplegia etiology: late effect of cerebrovascular disease Cerebrovascular disease type: unspecified Hemiplegia laterality: right dominant side Qualified Code(s): I69.951 - Hemiplegia and hemiparesis following unspecified cerebrovascular disease affecting right dominant side
--- NOTE | 2018-11-30 11:04 | History & Physical Report ---
Date of Service November 30, 2018 Assessment & Plan (1) RAVEN (acute kidney injury): (2) Chronic pain: (3) Right shoulder pain: (4) Hypomagnesemia: (5) Expressive aphasia: (6) Cervical radiculopathy at C7: (7) Back pain: (8) Dehydration: (9) Aphasia: (10) Anxiety: (11) Depression: (12) CVA, old, speech/language deficit: (13) CVA, old, hemiparesis: (14) CVA, old, dysarthria: (15) CVA, old, aphasia: (16) History of seizures: (17) DVT prophylaxis: The patient will be admitted to the medical floor. Add IV fluids. Add magnesium supplements. Consult psychiatry to rule out suicidal ideation. Consult nephrology for acute renal insufficiency. Continue home medications, except hold lisinopril secondary to acute renal failure.. Check chest x-ray as patient has leukocytosis. May add Ativan as needed basis for agitation. Repeat labs in a.m. Add subcu heparin for DVT prophylaxis. CODE STATUS full code History of Present Illness Primary Care Provider: Ashia Thomas MD Provider complaint: mental health evaluation Location: head Maximum Pain Intensity: 3 Quality: + other (mental health evaluation) Associated symptoms: + denies other symptoms (suicidal ideation, homicidal ideation) and + other (banged his head against wall because he was frustrated si nce he cannot communicate well, feels okay, not depressed recently, has not tried to hurt self in over 2 years) Treatments prior to arrival: none The patient is a 52 year old male who presents to the ED for a mental health evaluation. Per nurse immigration case worker, the patients partner called in and said the patient was banging his head against the wall and making gestures of cutting his throat. Per nurse immigration case worker, the patient gets frustrated because he cannot communicate well secondary to history of stroke. The patient admits to banging his head on the wall, but states that he did it because he was frustrated, not because he was trying to hurt himself. The patient denies making gestures of cu tting his throat. The patient states that he is okay and not suicidal or homicidal. The patient states that he has struggled with depression in the past, but states that he has not felt depressed recently. The patient notes that he has not tried to hurt himself in 2 years. The patient denies receiving any treatments prior to arrival. The patient does not want to return home with his partner. Case management was consulted. The patient will be admitted to the medical floor. The blood work done in the ER shows that patient has acute renal failure and dehydration, hypomagnesemia & leukocytosis. He was started on IV fluids and magnesium supplements and will be admitted for further evaluation and management.. Allergies Allergy/AdvReac Type Severity Reaction Status Date / Time codeine Allergy Mild HIVES Verified 11/30/18 05:16 Home Medications Home Medications Medication Instructions Recorded Confirmed Type lisinopril 20 mg PO DAILY 08/18/18 11/30/18 History tramadol 50 mg PO Q6H PRN 08/18/18 11/30/18 History escitalopram 5 mg tablet 5 mg PO DAILY #30 tab 10/18/18 11/30/18 Rx quetiapine 25 mg tablet 25 mg PO DIRECTED tab 10/21/18 11/30/18 History methocarbamol 500 mg PO TID 11/30/18 11/30/18 History Past Med/Surg History Medical History Seizure disorder (Chronic) Polyneuropathy (Chronic) Hypertension (Chronic) Hypercholesterolemia (Chronic) Hemiparesis, right (Chronic) GERD without esophagitis (Chronic) Expressive aphasia (Chronic) Chronic prostatitis (Chronic) Cervical radiculopathy at C7 (Chronic) Back pain (Chronic) Anemia (Chronic) Anticoagulant therapy (Chronic Unknown) Cardiomyopathy (Chronic Unknown) "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% " On 08/13/12 05:02 J Luis Torres wrote "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% " Ischemic stroke (Chronic Unknown) "left MCA received TPA echo- LV mural thrombus residual right hemiparesis + aphasia " Seizure (Chronic Unknown) Suicide attempt (Chronic Unknown) Status epilepticus, 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) ARF (acute renal failure) (Chronic 02/22/14) CVA (cerebral vascular accident) (Chronic) Aphasia (Chronic) Anxiety (Chronic) Depression (Chronic) ARF (acute renal failure) (Resolved 02/03/14) Arterial ischemic stroke, MCA (middle cerebral artery), left, chronic (Resolved) Breakthrough seizure (Resolved) Change in mental status (Resolved) Hemiparesis (Resolved Unknown) "right hemiparesis " On 08/13/12 00:17 Ham Jacobs wrote "right hemiparesis " Hemorrhagic shock (Resolved) Hyperammonemia (Resolved) Hyperkalemia (Resolved) Hypomagnesemia (Resolved) Hyponatremia (Resolved Unknown) Hypoxia (Resolved 02/22/14) Left shoulder pain (Resolved) Leg fracture, right (Resolved) Metabolic encephalopathy (Resolved 03/21/14) Seizure (Resolved) Shoulder pain (Resolved) Sepsis (Unknown) Family History Father No pertinent family history Social History Preferred Language: American Communication Ability: Effective Line Rider Required: No Beliefs That Will Affect Care: None Current Living Situation: Other Current Living Situation Comment: [facility] ([facility]) Feels Safe at Home: Yes Smoking Status: Current every day smoker Cigarettes Per Day: 2 ; Second Hand Exposure: No ; Hx Alcohol Use: No Hx Substance Use: No Review of Systems Review of Systems: All systems reviewed & are unremarkable except as noted in HPI & below Psychiatric: + behavioral changes, + depression, + irritability and + anxiety Physical Exam Physical Exam: GENERAL : No acute distress Expressive aphasia noted from old stroke EYES: No icterus, gaze conjugate NOSE: No evidence of epistaxis MOUTH: No lesions or candidiasis, mucosa moist NECK: Supple LUNGS: CTA B/L, no wheezes, rales or rhonchi HEART: Regular, rate controlled ABDOMEN: Soft, NT, ND, BS Present EXTREMITIES: No LE edema, contracture of right sided extremities noted. NEURO: A&OX3 Patient is wheelchair-bound. Results & Data Vital Signs (Past 12 Hours) Vital Signs Pulse Resp BP Pulse Ox 11/30/18 09:20 79 18 129/79 96 11/30/18 03:18 88 20 138/88 98 11/30/18 02:01 98 H 20 140/92 96 Laboratory Results 11/29/18 22:41 11/29/18 22:41 11/29/18 11/29/18 11/29/18 Range/Units 23:35 23:35 23:35 WBC (4.8-10.8) K/uL RBC (4.7-6.1) M/uL Hgb (14.0-18.0) g/dL Hct (42-52) % MCV (80-100) fL MCH (25-34) pg MCHC (32-36) g/dL RDW Std Deviation (36.4-46.3) fL RDW Coeff of Yadira (11.5-14.5) % Plt Count (130-400) K/uL MPV (7.4-10.4) fL Immature Gran % (Auto) % Neut % (Auto) % Lymph % (Auto) % [place] % (Auto) % Eos % (Auto) % Baso % (Auto) % Immature Gran # (Auto) (0.00-0.02) K/uL Neut # (Auto) (1.4-6.5) K/uL Lymph # (Auto) (1.2-3.4) K/uL [place] # (Auto) (0.11-0.59) K/uL Eos # (Auto) (0-0.5) K/uL Baso # (Auto) (0-0.2) K/uL Sodium (136-145) mmol/L Potassium (3.5-5.1) mmol/L Chloride (98-107) mmol/L Carbon Dioxide (21-32) mmol/L Anion Gap (3-11) BUN (7-18) mg/dl Creatinine (0.6-1.4) mg/dl Est Cr Clr Drug Dosing Est GFR ( Amer) Est GFR (Non-Af Amer) BUN/Creatinine Ratio (10-20) Glucose (70-99) mg/dl Calcium (8.5-10.1) mg/dl Magnesium (1.8-2.4) mg/dl Total Bilirubin (0.2-1) mg/dl AST (15-37) U/L ALT (12-78) U/L Alkaline Phosphatase (45-117) U/L Total Protein (6.4-8.2) gm/dl Albumin (3.4-5.0) gm/dl Globulin (2.5-4.0) gm/dl Albumin/Globulin Ratio (0.9-2) TSH (0.300-4.500) uIu/ml Free T4 (0.8-1.6) ng/dl Urine Color Yellow Urine Appearance Clear (Clear) Urine pH 5.0 (4.5-7.5) Ur Specific [place] 1.019 (1.000-1.030) Urine Protein Trace H (Negative) Urine Glucose (UA) Negative (Negative) Urine Ketones Negative (Negative) Urine Blood Negative (Negative) Urine Nitrite Negative (Negative) Urine Bilirubin Negative (Negative) Urine Urobilinogen Negative (Negative) Ur Leukocyte Esterase Negative (Negative) Urine WBC (Auto) 1-5 (0-5) /hpf Urine RBC (Auto) 0-4 (0-4) /hpf U Hyaline Cast (Auto) 1-5 (0-5) /lpf U Epithel Cells (Auto) >30 H (0-5) /lpf Urine Bacteria (Auto) Negative (Negative) Salicylates (2.8-20) mg/dl Urine Opiates Screen Neg (Neg) Ur Methadone, Qual Neg (Neg) Acetaminophen (10-30) ug/ml Urine Barbiturates Neg (Neg) Levetiracetam Ur Phencyclidine (PCP) Neg (Neg) U Amphetamin/Meth Scrn Neg (Neg) MDMA (Ecstasy) Screen Neg (Neg) U Benzodiazepines Scrn Neg (Neg) Ur Cocaine Metabolite Neg (Neg) U Marijuana (THC) Screen Pos H (Neg) U Marijuana THC Carboxy Pending Ethyl Alcohol mg/dL (0-3) mg/dl 11/29/18 11/29/18 11/29/18 Range/Units 22:41 22:41 22:41 WBC (4.8-10.8) K/uL RBC (4.7-6.1) M/uL Hgb (14.0-18.0) g/dL Hct (42-52) % MCV (80-100) fL MCH (25-34) pg MCHC (32-36) g/dL RDW Std Deviation (36.4-46.3) fL RDW Coeff of Yadira (11.5-14.5) % Plt Count (130-400) K/uL MPV (7.4-10.4) fL Immature Gran % (Auto) % Neut % (Auto) % Lymph % (Auto) % [place] % (Auto) % Eos % (Auto) % Baso % (Auto) % Immature Gran # (Auto) (0.00-0.02) K/uL Neut # (Auto) (1.4-6.5) K/uL Lymph # (Auto) (1.2-3.4) K/uL [place] # (Auto) (0.11-0.59) K/uL Eos # (Auto) (0-0.5) K/uL Baso # (Auto) (0-0.2) K/uL Sodium (136-145) mmol/L Potassium (3.5-5.1) mmol/L Chloride (98-107) mmol/L Carbon Dioxide (21-32) mmol/L Anion Gap (3-11) BUN (7-18) mg/dl Creatinine (0.6-1.4) mg/dl Est Cr Clr Drug Dosing Est GFR ( Amer) Est GFR (Non-Af Amer) BUN/Creatinine Ratio (10-20) Glucose (70-99) mg/dl Calcium (8.5-10.1) mg/dl Magnesium (1.8-2.4) mg/dl Total Bilirubin (0.2-1) mg/dl AST (15-37) U/L ALT (12-78) U/L Alkaline Phosphatase (45-117) U/L Total Protein (6.4-8.2) gm/dl Albumin (3.4-5.0) gm/dl Globulin (2.5-4.0) gm/dl Albumin/Globulin Ratio (0.9-2) TSH (0.300-4.500) uIu/ml Free T4 (0.8-1.6) ng/dl Urine Color Urine Appearance (Clear) Urine pH (4.5-7.5) Ur Specific [place] (1.000-1.030) Urine Protein (Negative) Urine Glucose (UA) (Negative) Urine Ketones (Negative) Urine Blood (Negative) Urine Nitrite (Negative) Urine Bilirubin (Negative) Urine Urobilinogen (Negative) Ur Leukocyte Esterase (Negative) Urine WBC (Auto) (0-5) /hpf Urine RBC (Auto) (0-4) /hpf U Hyaline Cast (Auto) (0-5) /lpf U Epithel Cells (Auto) (0-5) /lpf Urine Bacteria (Auto) (Negative) Salicylates 3.3 (2.8-20) mg/dl Urine Opiates Screen (Neg) Ur Methadone, Qual (Neg) Acetaminophen 6 L (10-30) ug/ml Urine Barbiturates (Neg) Levetiracetam Pending Ur Phencyclidine (PCP) (Neg) U Amphetamin/Meth Scrn (Neg) MDMA (Ecstasy) Screen (Neg) U Benzodiazepines Scrn (Neg) Ur Cocaine Metabolite (Neg) U Marijuana (THC) Screen (Neg) U Marijuana THC Carboxy Ethyl Alcohol mg/dL < 3.0 (0-3) mg/dl 11/29/18 11/29/18 Range/Units 22:41 22:41 WBC 14.43 H (4.8-10.8) K/uL RBC 4.19 L (4.7-6.1) M/uL Hgb 14.0 (14.0-18.0) g/dL Hct 39.0 L (42-52) % MCV 93.1 (80-100) fL MCH 33.4 (25-34) pg MCHC 35.9 (32-36) g/dL RDW Std Deviation 41.1 (36.4-46.3) fL RDW Coeff of Yadira 12.1 (11.5-14.5) % Plt Count 190 (130-400) K/uL MPV 10.2 (7.4-10.4) fL Immature Gran % (Auto) 0.3 % Neut % (Auto) 73.7 % Lymph % (Auto) 18.0 % [place] % (Auto) 7.7 % Eos % (Auto) 0.2 % Baso % (Auto) 0.1 % Immature Gran # (Auto) 0.04 H (0.00-0.02) K/uL Neut # (Auto) 10.64 H (1.4-6.5) K/uL Lymph # (Auto) 2.60 (1.2-3.4) K/uL [place] # (Auto) 1.11 H (0.11-0.59) K/uL Eos # (Auto) 0.03 (0-0.5) K/uL Baso # (Auto) 0.01 (0-0.2) K/uL Sodium 131 L (136-145) mmol/L Potassium 3.9 (3.5-5.1) mmol/L Chloride 100 (98-107) mmol/L Carbon Dioxide 21 (21-32) mmol/L Anion Gap 10.0 (3-11) BUN 22 H (7-18) mg/dl Creatinine 1.71 H (0.6-1.4) mg/dl Est Cr Clr Drug Dosing Not Reportable Est GFR ( Amer) 51.8 Est GFR (Non-Af Amer) 44.7 BUN/Creatinine Ratio 13.1 (10-20) Glucose 85 (70-99) mg/dl Calcium 8.6 (8.5-10.1) mg/dl Magnesium 1.6 L (1.8-2.4) mg/dl Total Bilirubin 0.7 (0.2-1) mg/dl AST 10 L (15-37) U/L ALT 10 L (12-78) U/L Alkaline Phosphatase 67 (45-117) U/L Total Protein 6.5 (6.4-8.2) gm/dl Albumin 4.3 (3.4-5.0) gm/dl Globulin 2.2 L (2.5-4.0) gm/dl Albumin/Globulin Ratio 2.0 (0.9-2) TSH 0.135 L (0.300-4.500) uIu/ml Free T4 1.27 (0.8-1.6) ng/dl Urine Color Urine Appearance (Clear) Urine pH (4.5-7.5) Ur Specific [place] (1.000-1.030) Urine Protein (Negative) Urine Glucose (UA) (Negative) Urine Ketones (Negative) Urine Blood (Negative) Urine Nitrite (Negative) Urine Bilirubin (Negative) Urine Urobilinogen (Negative) Ur Leukocyte Esterase (Negative) Urine WBC (Auto) (0-5) /hpf Urine RBC (Auto) (0-4) /hpf U Hyaline Cast (Auto) (0-5) /lpf U Epithel Cells (Auto) (0-5) /lpf Urine Bacteria (Auto) (Negative) Salicylates (2.8-20) mg/dl Urine Opiates Screen (Neg) Ur Methadone, Qual (Neg) Acetaminophen (10-30) ug/ml Urine Barbiturates (Neg) Levetiracetam Ur Phencyclidine (PCP) (Neg) U Amphetamin/Meth Scrn (Neg) MDMA (Ecstasy) Screen (Neg) U Benzodiazepines Scrn (Neg) Ur Cocaine Metabolite (Neg) U Marijuana (THC) Screen (Neg) U Marijuana THC Carboxy Ethyl Alcohol mg/dL (0-3) mg/dl Diagnostic Findings US renal/blad retro comp HISTORY: 52 years-old Male RAVEN acute kidney injury COMPARISON: CT 09/29/2017 TECHNIQUE: Multiple real-time sonographic images of the kidneys and urinary bladder were obtained assessing grayscale appearance and color flow FINDINGS: Right kidney measures 9.1 cm in length and is unremarkable without renal calculi or hydronephrosis. The left kidney measures 9.5 cm in length and is also unremarkable without renal calculi or hydronephrosis. Urinary bladder is unremarkable. Ureteral jets are not visualized. IMPRESSION: Unremarkable sonographic appearance of the kidneys and urinary bladder. The above report was generated using voice recognition software. It may contain grammatical, syntax or spelling errors. Code Status & VTE Plan Code Status Full code VTE Prophylaxis Plan VTE Prophylaxis will be ordered: Yes PG Care Time/CCT Total # of Minutes Spent Total Time Spent with Patient: Total time spent is greater than 50% in coordination of care (as documented) at patient's floor/unit and/or counseling patient: 60min (1) Depression Depression Type: unspecified Qualified Code(s): F32.9 - Major depressive disorder, single episode, unspecified
--- NOTE | 2018-11-30 11:44 | XRay Report ---
XR chest 1V portable CLINICAL HISTORY: Rule out pneumonia dyspnea COMPARISON STUDY: No previous studies for comparison. FINDINGS: The bones soft tissues and hemidiaphragms are normal. The cardiomediastinal silhouette is n ormal. The lungs are clear. The pulmonary vasculature is normal. IMPRESSION: Negative chest. The above report was generated using voice recognition software. It may contain grammatical, syntax or spelling errors. Electronically signed by: Viral Sullivan M.D. 11/30/2018 11:42 AM
[2018-11-30] MEDS ORDERED: LORazepam 1 MG/2 ML VIAL IV PRN (13:19)
[2018-11-30] MEDS ORDERED: POLYETHYLENE (MIRALAX) 17 GM PACK PO PRN (13:19)
[2018-11-30] MEDS ORDERED: ALUMINUM/MAGNESIUM SUSP 30 ML UDC PO PRN (13:19)
[2018-11-30] MEDS ORDERED: MAGNESIUM HYDROXIDE SUSP 30 ML UDC PO PRN (13:19)
[2018-11-30] MEDS: SODIUM CHLORIDE 0.9% 1000ML 1,000 ML IV SCH (13:32)
[2018-11-30] MEDS: METHOCARBAMOL 500 MG TABLET PO SCH ×2 (14:41→20:51)
[2018-11-30] MEDS: HEPARIN SOD 5,000 UNIT/0.5 ML VIAL SQ SCH ×2 (14:41→22:33)
[2018-11-30] MEDS: QUETIAPINE FUMARATE 25 MG TABLET PO SCH ×2 (15:05→20:51)
--- NOTE | 2018-11-30 15:57 | Psychiatric Consultation ---
Date of Consultation November 30, 2018 Impression / Recommendations Impression 52-year-old male admitted medically on 11/30/18 after presenting to the ED for mental health evaluation. It is reported that the patient's partner, Don, had called in reporting that the patient had been banging his head against the wall and making "gestures of cutting his throat." Patient has a history of aphasia, and communication difficulty has historically been frustrating for him. It is reported that patient admits that the behavior was because he was frustrated, and not because he is trying to hurt himself. Patient had denied suicidal and homicidal ideation on admission. Psychiatric consultation was requested to follow-up on this evaluation, and determine the presence of suicidality. Patient was admitted medically due to acute renal failure, dehydration, hypomagnesemia, and leukocytosis. Patient is well-known to our psychiatric service from several previous consultations. The most recent of these was on 08/21/18 in order to assess patient's psychiatric stability for placement in a [facility] facility. Patient shares with this provider that he is frustrated with his significant other, and denies thoughts to harm himself or end his life. Patient does state he is not interested in returning home with his significant other, due to his level of frustration. Patient is not able to identify any other supports with whom we are able to gather collateral information from. While patient's risk of potential harm to self is certainly increase due to frustrations with limited ability to communicate, he is also verbalizing that he is not having current thoughts to harm himself or end his life. We will attempt to gather collateral information for many identified supports in order to ensure safe discharge planning. Based on the patient's reports, there is not appear to be an indication for inpatient psychiatric treatment at this time. Pt has significant physical limitations, and his circumstances are not likely amenable to inpatient psychiatric treatment. Patient's frustration appears to be situational, therefore would recommend continuing his home medication regimen if it continues to be effective for him. Dr. Richard Servin was directly involved in review and discussion of the patient's case and participated in medical decision making regarding treatment recommendations. Risk Factors Assessment Do You Have Access To A Gun?: No CPT Code Initial Consultation: 20192 Psych History Identifying Data 52-year-old male admitted medically on 11/30/18 after presenting to the ED for mental health evaluation. It was reported that the patient had been frustrated at home and began hitting his head against the wall and making "gestures of cutting his throat." Psychiatric consultation was requested to evaluate patient for possible suicidality. Information is gathered from hospital documentation. Pt attempts to provide history, but is limited in ability to communicate effectively. History of Present Illness Jim Gardner is a 52-year-old male admitted medically on 11/30/18 after being brought to the ED for mental health evaluation. Patient's partner had expressed concern for home to patient or himself after the patient "went ballistic", banging his head and reportedly displaying a gesture of cutting his throat. Information for hospitalization and ED presentation was reviewed. Pt is well- known to our service from prior psychiatric consultations. We are requested to see the patient today to evaluate for presence of suicidal ideation. Pt is cooperative with assessment, and is found to be laying in bed with only a [employer] in the room. Pt has expressive and receptive aphasia from multiple CVAs, and requires a dry erase board to effectively communicate. He is clearly frustrated, speaking loudly after he was asked the reason for his admission. This provider is only able to determine that the patient is frustrated with his significant other, Don, reporting "months" of fighting. Pt is clearly able to verbalize, "I'm done with him. No more." Pt was asked where he has been living and states - "with her [?him]." He does take the marker and writes [place] on the dry erase board, seeming to imply that he had previously been there as well. Although patient appears frustrated at present, he is clearly able to verbalize that he is not suicidal. This provider asked if he was having thoughts to harm himself or end his life - to which he verbalizes "no, no, no, no. Not anymore." He is able to confirm that he is able to keep himself safe in the hospital and will be able to remain safe if he is able to be discharged to another location. Additional history is difficult to obtain. Pt states that aside from Don, there is no one else that can be contacted to confirm the story or his safety at home. He denies other needs or concerns at this time. Past Psychiatric History Current Psychiatric Diagnosis: Depression, anxiety, substance abuse Outpatient Services: Psychiatric medications currently prescribed by primary care providers, patient denies being established currently with a therapist. Patient was previously seen by psychiatrist at [facility] Previous Psych Admissions: Per 08/21/18 consultation: [facility] admissions - 08/2012, 12/2012, 2 admissions in 2010 Do You Have Access To A Gun?: No History of Previous Suicide Attempt: Yes Describe Attempts in the Past: Several previous attempts by cutting and one overdose attempt Past Medication Trials: Per previous psychiatric consultation: - Wellbutrin - increased anger - Lexapro - Ativan - Prozac - Seroquel - "took edge off" Allergies Allergy/AdvReac Type Severity Reaction Status Date / Time codeine Allergy Mild HIVES Verified 11/30/18 05:16 Home Medications Home Medications Medication Instructions Recorded Confirmed Type lisinopril 20 mg PO DAILY 08/18/18 11/30/18 History tramadol 50 mg PO Q6H PRN 08/18/18 11/30/18 History escitalopram 5 mg tablet 5 mg PO DAILY #30 tab 10/18/18 11/30/18 Rx quetiapine 25 mg tablet 25 mg PO DIRECTED tab 10/21/18 11/30/18 History methocarbamol 500 mg PO TID 11/30/18 11/30/18 History Personal History Living Arrangements: Home (with partner/caregiver) Marital Status: Living w/ Signif. Other Number Of Children: None Beliefs That Will Affect Care: None Patient History Medical History Seizure disorder (Chronic) Polyneuropathy (Chronic) Hypertension (Chronic) Hypercholesterolemia (Chronic) Hemiparesis, right (Chronic) GERD without esophagitis (Chronic) Expressive aphasia (Chronic) Chronic prostatitis (Chronic) Cervical radiculopathy at C7 (Chronic) Back pain (Chronic) Anemia (Chronic) Anticoagulant therapy (Chronic Unknown) Cardiomyopathy (Chronic Unknown) "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% " On 08/13/12 05:02 J Luis Torres wrote "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% " Ischemic stroke (Chronic Unknown) "left MCA received TPA echo- LV mural thrombus residual right hemiparesis + aphasia " Seizure (Chronic Unknown) Suicide attempt (Chronic Unknown) Status epilepticus, 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) ARF (acute renal failure) (Chronic 02/22/14) CVA (cerebral vascular accident) (Chronic) Aphasia (Chronic) Anxiety (Chronic) Depression (Chronic) ARF (acute renal failure) (Resolved 02/03/14) Arterial ischemic stroke, MCA (middle cerebral artery), left, chronic (Resolved) Breakthrough seizure (Resolved) Change in mental status (Resolved) Hemiparesis (Resolved Unknown) "right hemiparesis " On 08/13/12 00:17 Ham Jacobs wrote "right hemiparesis " Hemorrhagic shock (Resolved) Hyperammonemia (Resolved) Hyperkalemia (Resolved) Hypomagnesemia (Resolved) Hyponatremia (Resolved Unknown) Hypoxia (Resolved 02/22/14) Left shoulder pain (Resolved) Leg fracture, right (Resolved) Metabolic encephalopathy (Resolved 03/21/14) Seizure (Resolved) Shoulder pain (Resolved) Sepsis (Unknown) Family History Father No pertinent family history Social History Preferred Language: Lao Communication Ability: Impaired 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: No Beliefs That Will Affect Care: None Current Living Situation: Significant Other Current Living Situation Comment: [facility] ([facility]) Feels Safe at Home: Yes Smoking Status: Unknown if ever smoked Hx Alcohol Use: No Hx Substance Use: No Physical Exam Psychiatric: Orientation: alert, oriented to person and cooperative (willing for conversation, though communication is very difficult) Apperance: appropriately dressed and + disheveled; + inappropriately groomed and + did not appear stated age (significantly older than stated age) Nearly cachectic appearing male appearing frustrated, but in no acute distress. Appropriately dressed in hospital gown. Pt has long rodriguez hair and a long cedeño - both appearing unkempt. Level of hygiene is not ideal and patient is malodorous. Eye Contact: good eye contact Motor Behavior: + abnormal motor movements Pt is observed while laying in bed; limited physically after CVAs, limited movement of right arm. Somewhat rigid posture. Speech: + loud speech; + abnormal rate/rhythm/volume of speech Dysarthric speech; history of receptive and expressive aphasia. Pt attempts to communicate verbally, but is not able to communicate in clear sentences. Uses dry erase board to communicate. Affect: + irritable affect (admits to frustration with his partner) and mood congruent with affect Mood: + angry mood ("I'm done with him. No more.") Suicidal Thoughts: denies suicidal thoughts; + reports suicidal intent Homicidal Thoughts: denies homicidal thoughts Insight: + limited insight Judgement: + limited judgement Vital Signs (Past 24 Hours): Last Vital Signs Temp 36.5 C 11/30/18 15:12 Pulse 107 H 11/30/18 15:12 Resp 18 11/30/18 15:12 BP 180/100 H 11/30/18 15:12 Pulse Ox 96 11/30/18 15:12 Review of Systems Patient's limited ability to communicate does not allow for a thorough review of systems. He does not indicate any acute physical complaints at this time. Results & Data Medications Administered Heparin Sodium (Porcine) (Heparin Sodium (Porcine)) 5,000 units SQ Q8 DEZ Stop: 12/30/18 13:59 Last Admin: 11/30/18 14:41 Dose: 5,000 units Documented by: [id number] Cosigned by: [id number] Sodium Chloride (Nss 1000ml) 1,000 mls @ 100 mls/hr IV .Q10H DEZ Stop: 12/30/18 13:18 Last Admin: 11/30/18 13:32 Dose: 100 mls/hr Documented by: [id number] Methocarbamol (Robaxin) 500 mg PO TID DEZ Stop: 12/30/18 13:59 Last Admin: 11/30/18 14:41 Dose: 500 mg Documented by: [id number] Quetiapine Fumarate (Seroquel) 12.5 mg PO TID@0800,1500,2100 DEZ Stop: 12/30/18 14:59 Last Admin: 11/30/18 15:05 Dose: 12.5 mg Documented by: [id number] Coding Level of Care Code 72414 U Intl Hosp Care Lvl 2
[2018-11-30] MEDS: TRAMADOL HCL 50 MG TABLET PO PRN ×2 (16:58→22:24)
[2018-11-30] MEDS: ACETAMINOPHEN 325 MG TAB PO PRN (19:02)
[2018-11-30] MEDS ORDERED: PNEUMOCOCCAL POLYSACCHARIDES 25 MCG/0.5 ML VIAL/SYR IM ONE (21:00)
[2018-11-30] MEDS ORDERED: INFLUENZA ADMINISTRATION CHARGE ONE (21:00)
[2018-11-30] MEDS ORDERED: INFLUENZA VIRUS QUAD VACCINE 0.5 ML SYR IM ONE (21:00)
[2018-11-30] MEDS ORDERED: PNEUMOCOCCAL ADMINISTRATION CHARGE ONE (21:00)
[2018-12-01] MEDS: SODIUM CHLORIDE 0.9% 1000ML 1,000 ML IV SCH ×3 (00:45→22:57)
[2018-12-01] MEDS: HEPARIN SOD 5,000 UNIT/0.5 ML VIAL SQ SCH ×3 (06:21→22:45)
[2018-12-01] MEDS: TRAMADOL HCL 50 MG TABLET PO PRN ×3 (07:39→21:00)
[2018-12-01] MEDS: METHOCARBAMOL 500 MG TABLET PO SCH ×3 (07:39→21:01)
[2018-12-01] MEDS: ESCITALOPRAM OXALATE 10 MG TAB PO SCH (07:39)
[2018-12-01] MEDS: QUETIAPINE FUMARATE 25 MG TABLET PO SCH ×3 (07:39→21:01)
[2018-12-01 07:56] LABS: Hematocrit (blood only) 36.6 % (42-52); Hemoglobin 12.9 g/dL (14.0-18.0); Mean Corpuscular Hgb Conc 35.2 g/dL (32-36); Mean Corpuscular Volume 93.6 fL (80-100); Mean Platelet Volume 10.2 fL (7.4-10.4); Platelet Count 168 K/uL (130-400); RDW Coefficient of Variation 12.1 % (11.5-14.5); RDW Standard Deviation 40.8 fL (36.4-46.3); Red Blood Count 3.91 M/uL (4.7-6.1); White Blood Count 5.11 K/uL (4.8-10.8)
[2018-12-01 08:37] LABS: Albumin Level 3.8 gm/dl (3.4-5.0); BUN Creatinine Ratio 12.8 (10-20); Bilirubin Direct 0.2 mg/dl (0-0.2); Creatinine Clr Calc Pharmacy 97.7 ml/min; Est GFR (African American) 122.7; Est GFR (Non-African American) 105.9; Magnesium 1.8 mg/dl (1.8-2.4); Potassium 3.8 mmol/L (3.5-5.1)
[2018-12-01 08:52] LABS: Albumin Globulin Ratio 1.7 (0.9-2); Bilirubin,Total 0.7 mg/dl (0.2-1); Globulin 2.3 gm/dl (2.5-4.0); Total Protein 6.1 gm/dl (6.4-8.2)
[2018-12-01 10:31] LABS: Appearance Urine Clear (Clear); Bilirubin Urine Negative (Negative); Blood Urine Negative (Negative); Color Urine Yellow; Glucose Urine UA Negative (Negative); Ketones Urine 2+ (Negative); Leukocyte Esterase Urine Negative (Negative); Nitrite Urine Negative (Negative); Protein Urine Negative (Negative); Urobilinogen Urine Negative (Negative)
[2018-12-01] MEDS: ACETAMINOPHEN 325 MG TAB PO PRN (10:48)
--- NOTE | 2018-12-01 15:04 | Hospitalist Progress Note ---
Date of Service December 01, 2018 Assessment & Plan (1) CVA, old, speech/language deficit: Presented after hitting his head on the wall in frustration due to language issues. Reports he does not want to go home at this point and prefers placement. - Consulted psychiatry to rule out suicidal ideation - No present suicidal intent. - PT/OT/CM for placement. (2) Hypertension: BP presently 160/100. Lisinopril originally held due to RAVEN. - Restarted lisinopril - Monitor (3) Seizure disorder: Per prior note, he had a witnessed seizure in 08/2018. He was discharged on Keppra that admission, but appears to no longer be on it. - Seizure precautions - Consider restarting Keppra if any concern for seizure - Lower tramadol to TID which they did last admission (4) RAVEN (acute kidney injury): Baseline Cr is normal. Up to 1.7 on admission. - Resolved by 12/01 with IV fluids - Monitor (5) Depression: As above for evaluation. - Continue home meds (6) Chronic pain: - Continue home tramadol (7) Anxiety: As above (8) Cardiomyopathy: Prior EF as low as 25% per documentation. Last echo in 12/2017 showed EF 45-50%. - Monitor volume status (9) DVT prophylaxis: Heparin 5000 units Q12h Subjective Calmer this afternoon. Still easily frustrated by communication issues. Reports no fevers/chills, chest pain, shortness of breath, abdominal pain, nausea, or vomiting. Physical Exam Constitutional: + physical limitations and + disheveled Eyes: EOM intact bilaterally; no conjunctival abnormality ENMT: external ear and nose normal, oropharynx normal Neck: trachea midline, no thyromegaly normal visual inspection Respiratory: normal respiratory effort, lungs clear to auscultation no respiratory distress Cardiovascular: Rate/Rhythm: regular rate and + tachycardic Heart Sounds: normal S1 and normal S2 Gastrointestinal (Abdomen): Inspection/Auscultation: abdomen normal to inspection; abdomen not distended Musculoskeletal: no cyanosis or clubbing, extremities motor strength 5/5 Skin: no rashes, warm and dry Neurologic: awake; + does not move all extremities Speech / Cognition: + expressive aphasia and + receptive aphasia Psychiatric: Orientation: alert, oriented to person and cooperative Results & Data Vital Signs (Past 12 Hours) Vital Signs BP 12/01/18 07:40 159/99 H PG Care Time/CCT Total # of Minutes Spent Total Time Spent with Patient: Total time spent is greater than 50% in coordination of care (as documented) at patient's floor/unit and/or counseling patient: (1) Depression Depression Type: unspecified Qualified Code(s): F32.9 - Major depressive disorder, single episode, unspecified
[2018-12-01] MEDS: IBUPROFEN 200 MG TAB PO PRN (18:55)
[2018-12-01] MEDS: DOCUSATE SODIUM 100 MG CAP PO SCH (21:00)
[2018-12-02] MEDS: IBUPROFEN 200 MG TAB PO PRN ×3 (03:54→18:53)
[2018-12-02] MEDS: TRAMADOL HCL 50 MG TABLET PO PRN ×3 (05:07→20:55)
[2018-12-02] MEDS: ACETAMINOPHEN 325 MG TAB PO PRN ×4 (06:38→23:02)
[2018-12-02 07:44] LABS: Hematocrit (blood only) 35.1 % (42-52); Hemoglobin 12.9 g/dL (14.0-18.0); Mean Corpuscular Hemoglobin 34.8 pg (25-34); Mean Corpuscular Hgb Conc 36.8 g/dL (32-36); Mean Corpuscular Volume 94.6 fL (80-100); Mean Platelet Volume 9.5 fL (7.4-10.4); Platelet Count 187 K/uL (130-400); RDW Standard Deviation 41.6 fL (36.4-46.3); Red Blood Count 3.71 M/uL (4.7-6.1); White Blood Count 7.23 K/uL (4.8-10.8)
[2018-12-02 08:37] LABS: BUN Creatinine Ratio 10.5 (10-20); Calcium 8.8 mg/dl (8.5-10.1); Creatinine Clr Calc Pharmacy 86.9 ml/min; Magnesium 1.6 mg/dl (1.8-2.4); Phosphorus 2.2 mg/dl (2.5-4.9); Potassium 3.9 mmol/L (3.5-5.1)
[2018-12-02] MEDS: ESCITALOPRAM OXALATE 10 MG TAB PO SCH (09:11)
[2018-12-02] MEDS: QUETIAPINE FUMARATE 25 MG TABLET PO SCH ×3 (09:11→20:55)
[2018-12-02] MEDS: DOCUSATE SODIUM 100 MG CAP PO SCH ×2 (09:12→20:52)
[2018-12-02] MEDS: METHOCARBAMOL 500 MG TABLET PO SCH ×3 (09:12→20:55)
[2018-12-02] MEDS: HEPARIN SOD 5,000 UNIT/0.5 ML VIAL SQ SCH ×2 (09:12→21:50)
[2018-12-02] MEDS: lisinopriL 20 MG TAB PO SCH (09:13)
[2018-12-02] MEDS ORDERED: POTASSIUM PHOS 3 MMOL/1 ML INFUSION IV STA (10:40)
[2018-12-02] MEDS ORDERED: POTASSIUM PHOSPHATE 30 MMOL in SODIUM CHLORIDE 0.9% 500 ML IV ONE (11:00)
[2018-12-02] MEDS: MAGNESIUM SULFATE / D5W 1 GM/100 ML BAG IV SCH ×3 (11:38→12:29)
[2018-12-02] MEDS: POT PHOSPHATE MONOBASIC W/ SOD TAB PO SCH ×3 (14:19→21:54)
--- NOTE | 2018-12-02 17:06 | Hospitalist Progress Note ---
Date of Service December 02, 2018 Assessment & Plan (1) CVA, old, speech/language deficit: Presented after hitting his head on the wall in frustration due to language issues. Reports he does not want to go home at this point and prefers placement. - PT/OT as able - Consulted psychiatry to rule out suicidal ideation - On 12/01, he had no suicidal ideation, and he presently has no active suicidal intent; however, today (12/02) he is refusing food, meds, labs, and blood sugar checks and said to me that he wants to . - Re-assess with psychiatry and palliative care on Monday. (2) Hypertension: BP presently 130/70. Lisinopril originally held due to RAVEN. - Restarted lisinopril on 12/02 for BPs edging up. - Monitor (3) Seizure disorder: Per prior note, he had a witnessed seizure in 08/2018. He was discharged on Keppra that admission, but appears to no longer be on it. - Seizure precautions - Consider restarting Keppra if any concern for seizure - Lowered tramadol to TID which they did last admission (4) RAVEN (acute kidney injury): Baseline Cr is normal. Up to 1.7 on admission. - Resolved by 12/01 with IV fluids - Monitor (5) Depression: As above for evaluation. - Continue home meds (6) Chronic pain: - Continue home tramadol (7) Anxiety: As above (8) Cardiomyopathy: Prior EF as low as 25% per documentation. Last echo in 12/2017 showed EF 45-50%. - Monitor volume status (9) DVT prophylaxis: Heparin 5000 units Q12h Subjective Says that he wants to . He is very unhappy. Reports no fevers/chills, chest pain, shortness of breath, abdominal pain, nausea, or vomiting. Review of Systems Review of Systems: Language issues. Physical Exam Constitutional: + physical limitations and + disheveled Eyes: EOM intact bilaterally; no conjunctival abnormality ENMT: external ear and nose normal, oropharynx normal Neck: trachea midline, no thyromegaly normal visual inspection Respiratory: normal respiratory effort, lungs clear to auscultation no respiratory distress Cardiovascular: Rate/Rhythm: regular rate and + tachycardic Heart Sounds: normal S1 and normal S2 Gastrointestinal (Abdomen): Inspection/Auscultation: abdomen normal to inspection; abdomen not distended Musculoskeletal: no cyanosis or clubbing, extremities motor strength 5/5 Skin: no rashes, warm and dry Neurologic: awake; + does not move all extremities Speech / Cognition: + expressive aphasia and + receptive aphasia Psychiatric: Orientation: alert, oriented to person and cooperative Results & Data Vital Signs (Past 12 Hours) Vital Signs Temp Pulse Resp BP Pulse Ox 12/02/18 06:50 36.7 C 78 18 130/79 97 PG Care Time/CCT Total # of Minutes Spent Total Time Spent with Patient: Total time spent is greater than 50% in coordination of care (as documented) at patient's floor/unit and/or counseling patient: (1) Depression Depression Type: unspecified Qualified Code(s): F32.9 - Major depressive disorder, single episode, unspecified
[2018-12-03] MEDS ORDERED: LORazepam 1 MG TAB ONE (00:48)
[2018-12-03] MEDS: TRAMADOL HCL 50 MG TABLET PO PRN ×3 (05:18→21:12)
[2018-12-03] MEDS: IBUPROFEN 200 MG TAB PO PRN ×2 (06:46→18:56)
[2018-12-03] MEDS: POT PHOSPHATE MONOBASIC W/ SOD TAB PO SCH ×2 (08:27→13:08)
[2018-12-03] MEDS: ESCITALOPRAM OXALATE 10 MG TAB PO SCH (08:27)
[2018-12-03] MEDS: QUETIAPINE FUMARATE 25 MG TABLET PO SCH ×3 (08:27→21:14)
[2018-12-03] MEDS: ACETAMINOPHEN 325 MG TAB PO PRN ×2 (08:27→16:53)
[2018-12-03] MEDS: METHOCARBAMOL 500 MG TABLET PO SCH ×3 (08:27→21:13)
[2018-12-03] MEDS: lisinopriL 20 MG TAB PO SCH (08:27)
[2018-12-03] MEDS: DOCUSATE SODIUM 100 MG CAP PO SCH ×2 (08:27→21:13)
[2018-12-03] MEDS: LORazepam 1 MG TAB PO PRN ×2 (08:27→13:08)
[2018-12-03] MEDS: HEPARIN SOD 5,000 UNIT/0.5 ML VIAL SQ SCH ×2 (08:28→21:13)
--- NOTE | 2018-12-03 11:54 | Palliative Care Consultation ---
Date of Consultation December 03, 2018 History of Present Illness Reason for Consultation: Patient is an established outpatient palliative care clinic patient Requesting Physician: Dr. Nicolas Thomas Attending Physician: Jarrod Owens History of Present Illness Patient is a 52-year-old male who is well known to me from my outpatient clinic where he is followed for pain related to his CVA. Patient had a left CVA with right-sided hemiparesis. He has pain in his left shoulder which is well controlled with tramadol every 6 hours. Patient has had previous hospitalizations for refusing to eat or take his medications as well as admission for increased frustration with his caregiver, Don. Patient has been in and out of hospice-has been discharged due to no significant decline, he has not had any decline when seen as an outpatient. Patient would benefit from long-term facility who can better meet his needs as he requires assist with most ADLs. Thank you for this consult-will visit patient socially and continue to follow him as an outpatient. Allergies Allergy/AdvReac Type Severity Reaction Status Date / Time codeine Allergy Mild HIVES Verified 11/30/18 05:16 Home Medications Home Medications Medication Instructions Recorded Confirmed Type lisinopril 20 mg PO DAILY 08/18/18 11/30/18 History tramadol 50 mg PO Q6H PRN 08/18/18 11/30/18 History escitalopram 5 mg tablet 5 mg PO DAILY #30 tab 10/18/18 11/30/18 Rx quetiapine 25 mg tablet 25 mg PO DIRECTED tab 10/21/18 11/30/18 History methocarbamol 500 mg PO TID 11/30/18 11/30/18 History Patient History Medical History Seizure disorder (Chronic) Polyneuropathy (Chronic) Hypertension (Chronic) Hypercholesterolemia (Chronic) Hemiparesis, right (Chronic) GERD without esophagitis (Chronic) Expressive aphasia (Chronic) Chronic prostatitis (Chronic) Cervical radiculopathy at C7 (Chronic) Back pain (Chronic) Anemia (Chronic) Anticoagulant therapy (Chronic Unknown) Cardiomyopathy (Chronic Unknown) "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% " On 08/13/12 05:02 J Luis Torres wrote "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% " Ischemic stroke (Chronic Unknown) "left MCA received TPA echo- LV mural thrombus residual right hemiparesis + aphasia " Seizure (Chronic Unknown) Suicide attempt (Chronic Unknown) Status epilepticus, 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) ARF (acute renal failure) (Chronic 02/22/14) CVA (cerebral vascular accident) (Chronic) Aphasia (Chronic) Anxiety (Chronic) Depression (Chronic) ARF (acute renal failure) (Resolved 02/03/14) Arterial ischemic stroke, MCA (middle cerebral artery), left, chronic (Resolved) Breakthrough seizure (Resolved) Change in mental status (Resolved) Hemiparesis (Resolved Unknown) "right hemiparesis " On 08/13/12 00:17 Ham Jacobs wrote "right hemiparesis " Hemorrhagic shock (Resolved) Hyperammonemia (Resolved) Hyperkalemia (Resolved) Hypomagnesemia (Resolved) Hyponatremia (Resolved Unknown) Hypoxia (Resolved 02/22/14) Left shoulder pain (Resolved) Leg fracture, right (Resolved) Metabolic encephalopathy (Resolved 03/21/14) Seizure (Resolved) Shoulder pain (Resolved) Sepsis (Unknown) Family History Father No pertinent family history Social History Preferred Language: Georgian Communication Ability: Impaired Collar Stay Fuser Tender Required: No Beliefs That Will Affect Care: None marital status: Single Current Living Situation: Significant Other Current Living Situation Comment: [facility] ([facility]) Feels Safe at Home: Yes Smoking Status: Unknown if ever smoked Hx Alcohol Use: No Hx Substance Use: No PG Care Time/CCT Total # of Minutes Spent Total Time Spent with Patient: Total time spent is greater than 50% in coordination of care (as documented) at patient's floor/unit and/or counseling patient:
--- NOTE | 2018-12-03 12:08 | Hospitalist Progress Note ---
Date of Service December 03, 2018 Assessment & Plan (1) CVA, old, speech/language deficit: * Presented after hitting his head on the wall in frustration due to language issues. Reports he does not want to go home at this point and prefers placement. * On 12/01, he had no suicidal ideation, and he presently has no active suicidal intent; however, starting on 12/02 he began to refuse food, medications, labs, and blood sugar checks. He told previous attending that he wants to , however per discussion with patient today, he is agreeable for lab draws and blood sugar checks, but is refusing any further interventions at this time. * Consulted psychiatry to rule out suicidal ideation * Palliative consult- appreciate input * PT/OT- patient would benefit from SNF as patient requires much assistance with ADLs (2) RAVEN (acute kidney injury): * Resolved * Creatinine on admission 1.71. * Baseline creatinine wnl * IV fluids given, and current creatinine back to baseline, at 0.83. * Patient also with phos 2.2- given oral replacement with repeat 3.3 today, wnl. * Continue to monitor (3) Hypomagnesemia: * Patient with mag 1.6 on admission- replaced, with repeat 1.8 * Mag 1.6 today- ordered oral replacement as patient refusing IV at this time * Repeat mag in AM (4) Hypertension: * BP presently 130/70. Lisinopril originally held due to RAVEN. * Restarted lisinopril on 12/02 * Continue to monitor (5) Seizure disorder: * Per prior note, he had a witnessed seizure in 08/2018. He was discharged on Keppra that admission, but appears to no longer be on it. * Seizure precautions-- consider restarting Keppra if any concern for seizure * Lowered tramadol to TID, which was also done last admission (6) Depression: * As above for evaluation. * Continue home meds (7) Chronic pain: * Continue home tramadol - switched from Q6 to TID dosing, given history of seizure disorder (8) Anxiety: * As above (9) Cardiomyopathy: * Prior EF as low as 25% per documentation. Last echo in 12/2017 showed EF 45-50%. * Continue to monitor volume status (10) DVT prophylaxis: * Heparin 5000 units Q12h Dispo: per therapy notes, patient would benefit from SNF at discharge Supervising Physician Co-Signing Physician Notes Attending attestation: Chart reviewed in detail, care plan d/w BENNETT Laboy. I agree w/ the mark components of her documentation. Patient with severe cerebrovascular disease s/p prior stroke with dense hemiplegia. Now refusal of routine care. Suspect severe depression in setting of chronic debilitation. Await psych eval. Does pt have capacity? Will ask psych for their input on this as well. If patient allows will continue to replace electrolyte issues. Jarrod Owens MD Subjective Patient evaluated at bedside this morning. He states he has no appetite or thirst and that he does not want any kind of surgeries. Upon discussion regarding labs this morning, the patient is now agreeable to have labs draw to see if his electrolytes need replacing. He confirms he has some right shoulder pain and is requesting tylenol currently. The patient would like to go to placement at time of discharge rather than home. He denies any chest pain, shortness of breath, abdominal pain, n/v/d/c, fever or chills. Review of Systems Review of Systems: Other (difficult due to language issues following CVA- see subjective for pertinent positives and negatives) Physical Exam Constitutional: + cachectic, + physical limitations and + disheveled Eyes: PERRL, conjunctivae normal, anicteric sclerae ENMT: Ears: + hearing impairment Neck: trachea midline, no thyromegaly Respiratory: normal respiratory effort, lungs clear to auscultation Cardiovascular: RRR, no murmur, no edema Gastrointestinal (Abdomen): normal bowel sounds, soft, nontender, no hepatosplenomegaly Musculoskeletal: no cyanosis or clubbing, extremities motor strength 5/5 Skin: no rashes, warm and dry Neurologic: + does not move all extremities -- right sided hemiparesis Speech / Cognition: + expressive aphasia and + receptive aphasia Psychiatric: Orientation: alert and oriented x 3 PG Care Time/CCT Total # of Minutes Spent Total Time Spent with Patient: Total time spent is greater than 50% in coordination of care (as documented) at patient's floor/unit and/or counseling patient: (1) Depression Depression Type: unspecified Qualified Code(s): F32.9 - Major depressive disorder, single episode, unspecified
[2018-12-03 13:55] LABS: Hematocrit (blood only) 36.4 % (42-52); Hemoglobin 13.1 g/dL (14.0-18.0); Mean Corpuscular Hemoglobin 33.5 pg (25-34); Mean Corpuscular Volume 93.1 fL (80-100); Mean Platelet Volume 9.3 fL (7.4-10.4); Nucleated RBC # (auto) 0.04 K/uL (0-0); Nucleated RBC % (auto) 0.8 %; Platelet Count 180 K/uL (130-400); RDW Coefficient of Variation 12.1 % (11.5-14.5); RDW Standard Deviation 41.1 fL (36.4-46.3); Red Blood Count 3.91 M/uL (4.7-6.1); White Blood Count 4.85 K/uL (4.8-10.8)
[2018-12-03 14:12] LABS: Albumin Level 3.9 gm/dl (3.4-5.0); BUN Creatinine Ratio 5.8 (10-20); Calcium 8.8 mg/dl (8.5-10.1); Creatinine Clr Calc Pharmacy 85.9 ml/min; Est GFR (African American) 116.4; Est GFR (Non-African American) 100.5
[2018-12-03 14:14] LABS: Albumin Globulin Ratio 1.7 (0.9-2); Bilirubin,Total 0.7 mg/dl (0.2-1); Globulin 2.2 gm/dl (2.5-4.0); Total Protein 6.1 gm/dl (6.4-8.2)
[2018-12-03 15:16] LABS: Magnesium 1.5 mg/dl (1.8-2.4); Phosphorus 3.3 mg/dl (2.5-4.9)
[2018-12-03] MEDS: MAGNESIUM CHLORIDE 64MG DELAYED REL TAB PO SCH (18:57)
[2018-12-03] MEDS ORDERED: MAGNESIUM CHLORIDE 64MG DELAYED REL TAB PO SCH (21:00)
[2018-12-04] MEDS: ACETAMINOPHEN 325 MG TAB PO PRN ×3 (00:21→18:45)
[2018-12-04] MEDS: TRAMADOL HCL 50 MG TABLET PO PRN ×3 (04:57→16:42)
[2018-12-04 08:05] LABS: Hemoglobin 14.1 g/dL (14.0-18.0); Mean Corpuscular Hemoglobin 33.3 pg (25-34); Mean Corpuscular Hgb Conc 35.3 g/dL (32-36); Mean Corpuscular Volume 94.3 fL (80-100); Mean Platelet Volume 9.8 fL (7.4-10.4); Platelet Count 190 K/uL (130-400); RDW Standard Deviation 41.1 fL (36.4-46.3); Red Blood Count 4.24 M/uL (4.7-6.1); White Blood Count 5.57 K/uL (4.8-10.8)
[2018-12-04] MEDS: QUETIAPINE FUMARATE 25 MG TABLET PO SCH ×3 (08:25→20:27)
[2018-12-04] MEDS: METHOCARBAMOL 500 MG TABLET PO SCH ×3 (08:26→20:26)
[2018-12-04] MEDS: MAGNESIUM CHLORIDE 64MG DELAYED REL TAB PO SCH ×2 (08:27→20:27)
[2018-12-04] MEDS: lisinopriL 20 MG TAB PO SCH (08:27)
[2018-12-04] MEDS: ESCITALOPRAM OXALATE 10 MG TAB PO SCH (08:27)
[2018-12-04] MEDS: DOCUSATE SODIUM 100 MG CAP PO SCH ×2 (08:30→20:28)
[2018-12-04] MEDS: HEPARIN SOD 5,000 UNIT/0.5 ML VIAL SQ SCH ×2 (08:32→20:28)
[2018-12-04 08:48] LABS: BUN Creatinine Ratio 6.1 (10-20); Creatinine Clr Calc Pharmacy 78.3 ml/min; Est GFR (African American) 111.1; Est GFR (Non-African American) 95.9; Magnesium 1.6 mg/dl (1.8-2.4); Phosphorus 2.7 mg/dl (2.5-4.9); Potassium 3.9 mmol/L (3.5-5.1)
--- NOTE | 2018-12-04 09:36 | Hospitalist Progress Note ---
Date of Service December 04, 2018 Assessment & Plan (1) CVA, old, speech/language deficit: * Presented after hitting his head on the wall in frustration due to language issues. Reports he does not want to go home at this point and prefers placement. * On 12/01, he had no suicidal ideation, and he presently has no active suicidal intent; however, starting on 12/02 he began to refuse food, medications, labs, and blood sugar checks. He told previous attending that he wants to , however per discussion with patient yesterday, he was agreeable for lab draws and blood sugar checks, but was refusing any further interventions at this time. * Currently, he is refusing most medications outside of those for pain, and is refusing to have hypoglycemia treated. * Palliative consult- appreciate input * PT/OT- patient would benefit from SNF as patient requires much assistance with ADLs-- awaiting return call from caregiver, Don, to see if he is able to continue to care for Jim or if he is unable to return home. CM onboard and spoke with office of aging- see CM documentation * Psych to re-evaluate patient in AM for capacity in regards to treatment medication refusal, as risks/benefits of refusal for further interventions/treatments discussed with patient and he continues to refuse. Complicated by living situation, as patient lives with caregiver, Don, for past 20 years and no one has been able to get ahold of him to determine if he is able to continue to care for the patient or if that is no longer an option. Patient wrote "homeless" on whiteboard when asked about living situation. (2) RAVEN (acute kidney injury): * Creatinine on admission 1.71. After IV fluids, creatinine normalized to 0.83. Patient was also given oral phos replacement for phos 2.2 with repeat improved to 3.3. * Difficult to assess continued resolution as patient refusing all labs at this time. (3) Hypomagnesemia: * Unable to assess * Patient with mag 1.6 on admission- replaced, with repeat 1.8. However repeat mag 1.6- patient refusing IV replacement, so PO ordered at that time * Patient is taking mag chloride 64mg PO BID currently, however he is refusing labs- difficult to assess improvement in mag level (4) Hypertension: * Not controlled * Lisinopril originally held due to RAVEN- was restarted on 12/04 with resulting BP 130/79. * BP elevated at 166/91 currently, however patient refusing further treatment (5) Seizure disorder: * Per prior note, he had a witnessed seizure in 08/2018. He was discharged on Keppra that admission, but appears to no longer be on it. * Seizure precautions-- consider restarting Keppra if any concern for seizure * Lowered tramadol to TID, which was also done last admission (6) Depression: * As above for evaluation. * Continue home meds (7) Chronic pain: * Continue home tramadol - switched from Q6 to TID dosing, given history of seizure disorder (8) Anxiety: * As above (9) Cardiomyopathy: * Prior EF as low as 25% per documentation. Last echo in 12/2017 showed EF 45-50%. * Continue to monitor volume status (10) DVT prophylaxis: * Heparin 5000 units Q12h Dispo: awaiting return call from caregiver Don about patient returning home vs SNF placement at this time Supervising Physician Co-Signing Physician Notes Attending attestation: Chart reviewed in detail, care plan d/w PA Rafaelakosta Laboy. I agree w/ the mark components of her documentation. Patient with severe cerebrovascular disease s/p prior stroke with dense hemiplegia. Continues to refuse all aspects of his care including routine meds, treatment of hypoglycemia, etc. Agree with psych eval for capacity determination. According to Ms Laboy it appears he likely does retain capacity, however, as he understands the risk of his current actions. Trying to determine best disposition for him but it appears SNF is best option. Social work involved in this complex situation. Jarrod Owens MD Subjective Patient evaluated this morning at bedside. Nursing reported low blood sugar with patient not wanting to treat his hypoglycemia. After lengthy conversation with patient regarding risks of refusing treatment, patient continues to express that he does not want any further IV, antibiotics, fluids, blood, electrolyte replacement or resuscitation efforts. He states that I am able to contact his mother to update her on his hospitalization. Further questioning regarding possible capacity and decision making as well as underlying depression resulted in patient voicing understanding and with capacity to make decisions regarding his care and per patient request, he is refusing treatment/medication. After conversation with patient's mother, she states she would need to converse with patient's caregiver Don. When attempting to contact Don, the call went to voicemail. Review of Systems Review of Systems: Other (Language issues following CVA- see subjective for pertinent positives and negatives) Physical Exam Constitutional: + cachectic, + physical limitations and + disheveled Eyes: PERRL, conjunctivae normal, anicteric sclerae ENMT: Ears: + hearing impairment Neck: trachea midline, no thyromegaly Respiratory: normal respiratory effort, lungs clear to auscultation Cardiovascular: RRR, no murmur, no edema Gastrointestinal (Abdomen): normal bowel sounds, soft, nontender, no hepatosplenomegaly Skin: no rashes, warm and dry Neurologic: + does not move all extremities -- right sided hemiparesis Speech / Cognition: + expressive aphasia and + receptive aphasia Psychiatric: Orientation: alert and oriented x 3 easily frustrated when asked to repeat answers Results & Data Vital Signs (Past 12 Hours) Vital Signs Temp Pulse Resp BP Pulse Ox 12/04/18 07:59 36.6 C 102 H 18 166/91 H 96 12/03/18 23:00 36.4 C L 87 18 150/85 H 99 Laboratory Results 12/04/18 12/04/18 12/03/18 Range/Units 07:47 07:47 13:38 WBC 5.57 (4.8-10.8) K/uL RBC 4.24 L (4.7-6.1) M/uL Hgb 14.1 (14.0-18.0) g/dL Hct 40.0 L (42-52) % MCV 94.3 (80-100) fL MCH 33.3 (25-34) pg MCHC 35.3 (32-36) g/dL RDW Std Deviation 41.1 (36.4-46.3) fL RDW Coeff of Yadira 12.0 (11.5-14.5) % Plt Count 190 (130-400) K/uL MPV 9.8 (7.4-10.4) fL Absolute Nucleated RBC (0-0) K/uL Nucleated RBC % (auto) % Sodium 136 (136-145) mmol/L Potassium 3.9 (3.5-5.1) mmol/L Chloride 104 (98-107) mmol/L Carbon Dioxide 15 L (21-32) mmol/L Anion Gap 17.0 H (3-11) BUN 6 L (7-18) mg/dl Creatinine 0.91 (0.6-1.4) mg/dl Est Cr Clr Drug Dosing 78.3 ml/min Est GFR ( Amer) 111.1 Est GFR (Non-Af Amer) 95.9 BUN/Creatinine Ratio 6.1 L (10-20) Glucose 51 L* (70-99) mg/dl Calcium 9.0 (8.5-10.1) mg/dl Phosphorus 2.7 3.3 D (2.5-4.9) mg/dl Magnesium 1.6 L 1.5 L (1.8-2.4) mg/dl Total Bilirubin (0.2-1) mg/dl AST (15-37) U/L ALT (12-78) U/L Alkaline Phosphatase (45-117) U/L Total Protein (6.4-8.2) gm/dl Albumin (3.4-5.0) gm/dl Globulin (2.5-4.0) gm/dl Albumin/Globulin Ratio (0.9-2) U Marijuana THC Carboxy (CUTOFF=5) NG/ML 12/03/18 12/03/18 11/29/18 Range/Units 13:38 13:38 23:35 WBC 4.85 (4.8-10.8) K/uL RBC 3.91 L (4.7-6.1) M/uL Hgb 13.1 L (14.0-18.0) g/dL Hct 36.4 L (42-52) % MCV 93.1 (80-100) fL MCH 33.5 (25-34) pg MCHC 36.0 (32-36) g/dL RDW Std Deviation 41.1 (36.4-46.3) fL RDW Coeff of Yadira 12.1 (11.5-14.5) % Plt Count 180 (130-400) K/uL MPV 9.3 (7.4-10.4) fL Absolute Nucleated RBC 0.04 H (0-0) K/uL Nucleated RBC % (auto) 0.8 % Sodium 135 L (136-145) mmol/L Potassium 4.0 (3.5-5.1) mmol/L Chloride 104 (98-107) mmol/L Carbon Dioxide 15 L (21-32) mmol/L Anion Gap 16.0 H (3-11) BUN 5 L (7-18) mg/dl Creatinine 0.83 (0.6-1.4) mg/dl Est Cr Clr Drug Dosing 85.9 ml/min Est GFR ( Amer) 116.4 Est GFR (Non-Af Amer) 100.5 BUN/Creatinine Ratio 5.8 L (10-20) Glucose 61 L (70-99) mg/dl Calcium 8.8 (8.5-10.1) mg/dl Phosphorus (2.5-4.9) mg/dl Magnesium (1.8-2.4) mg/dl Total Bilirubin 0.7 (0.2-1) mg/dl AST 20 (15-37) U/L ALT 14 (12-78) U/L Alkaline Phosphatase 63 (45-117) U/L Total Protein 6.1 L (6.4-8.2) gm/dl Albumin 3.9 (3.4-5.0) gm/dl Globulin 2.2 L (2.5-4.0) gm/dl Albumin/Globulin Ratio 1.7 (0.9-2) U Marijuana THC Carboxy 37 A (CUTOFF=5) NG/ML PG Care Time/CCT Total # of Minutes Spent Total Time Spent with Patient: Total time spent is greater than 50% in coordination of care (as documented) at patient's floor/unit and/or counseling patient: (1) Depression Depression Type: unspecified Qualified Code(s): F32.9 - Major depressive disorder, single episode, unspecified
[2018-12-04] MEDS: LORazepam 1 MG TAB PO PRN ×2 (10:22→14:24)
[2018-12-04] MEDS: GLUCOSE 10 TABS/TUBE PO SCH ×2 (16:46→20:29)
[2018-12-04] MEDS ORDERED: GLUCOSE 5 GM CHEWABLE TABLET PO SCH (17:00)
[2018-12-04] MEDS: IBUPROFEN 200 MG TAB PO PRN (20:26)
[2018-12-05] MEDS: TRAMADOL HCL 50 MG TABLET PO PRN ×3 (00:53→17:27)
[2018-12-05] MEDS: ACETAMINOPHEN 325 MG TAB PO PRN ×3 (00:57→19:56)
[2018-12-05] MEDS: LORazepam 1 MG TAB PO PRN ×2 (05:52→13:59)
[2018-12-05] MEDS: MAGNESIUM CHLORIDE 64MG DELAYED REL TAB PO SCH ×2 (08:22→21:03)
[2018-12-05] MEDS: lisinopriL 20 MG TAB PO SCH (08:22)
[2018-12-05] MEDS: QUETIAPINE FUMARATE 25 MG TABLET PO SCH ×3 (08:23→21:02)
[2018-12-05] MEDS: METHOCARBAMOL 500 MG TABLET PO SCH ×3 (08:23→21:04)
[2018-12-05] MEDS: ESCITALOPRAM OXALATE 10 MG TAB PO SCH (08:23)
[2018-12-05] MEDS: DOCUSATE SODIUM 100 MG CAP PO SCH ×2 (08:23→21:05)
[2018-12-05] MEDS: HEPARIN SOD 5,000 UNIT/0.5 ML VIAL SQ SCH ×2 (08:26→21:02)
[2018-12-05] MEDS: IBUPROFEN 200 MG TAB PO PRN ×2 (08:26→21:01)
[2018-12-05] MEDS: GLUCOSE 10 TABS/TUBE PO SCH ×4 (08:42→21:05)
[2018-12-05 09:18] LABS: Hematocrit (blood only) 39.4 % (42-52); Hemoglobin 13.8 g/dL (14.0-18.0); Mean Corpuscular Hemoglobin 32.9 pg (25-34); Mean Platelet Volume 9.5 fL (7.4-10.4); Platelet Count 181 K/uL (130-400); RDW Standard Deviation 40.8 fL (36.4-46.3); Red Blood Count 4.19 M/uL (4.7-6.1); White Blood Count 4.75 K/uL (4.8-10.8)
[2018-12-05 09:54] LABS: BUN Creatinine Ratio 5.2 (10-20); Est GFR (African American) 100.4; Est GFR (Non-African American) 86.6; Magnesium 1.6 mg/dl (1.8-2.4); Potassium 4.1 mmol/L (3.5-5.1)
--- NOTE | 2018-12-05 12:30 | Hospitalist Progress Note ---
Date of Service December 05, 2018 Assessment & Plan (1) CVA, old, speech/language deficit: * Presented after hitting his head on the wall in frustration due to language issues. Reports he does not want to go home at this point and prefers placement. * On 12/01, he had no suicidal ideation, and he presently has no active suicidal intent; however, starting on 12/02 he began to refuse food, medications, labs, and blood sugar checks. He told previous attending that he wants to , however per discussion with patient yesterday, he was agreeable for lab draws and blood sugar checks, but was refusing any further interventions at this time. * Currently, he is refusing to treat hypoglycemia and IVs, but has been taking the rest of his scheduled medications as well as magnesium oral replacements. * Palliative on consult during admission- per Dr. Gregory, patient had not had significant decline in condition over past year * PT/OT- patient would benefit from SNF as patient requires much assistance with ADLs * [facility] to see patient AM for level II evaluation * Discharge complicated by living situation, as patient lives with caregiver, Don, for past 20 years and no one had been able to get ahold of him to determine if he is able to continue to care for the patient or if that was an option at this point. Patient wrote "homeless" on whiteboard when asked about living situation. This morning after contact with Don, who stated he was on a drinking binge for the past three days and states that is the reason no one could get ahold of him. He states "I think I'm done with that stuff now" with regards to the alcohol. He states that he doesn't believe he would be able to take Mr. Gardner back at that time because he doesn't think that's what the patient wants either. --> Will wait for [facility] evaluation to determine if it is safe for patient to return home or if alternative measures will need to be taken/SNF/etc. (2) RAVEN (acute kidney injury): * Creatinine on admission 1.71. After IV fluids, creatinine normalized to 0.83. * Patient was also given oral phos replacement for phos 2.2 with repeat improved to 3.3. * Phos 2.7 on repeat labs * Will repeat phos level in AM (3) Hypomagnesemia: * Patient with mag 1.6 on admission- replaced, with repeat 1.8. * Due to patient refusing IV, patient taking mag chloride 64mg PO BID currently * Mag 1.6 today - will continue with oral replacement * Continue to monitor (4) Hypertension: * Stable * Lisinopril originally held due to RAVEN- was restarted on 12/04 with resulting BP 130/79. * BP currently 132/95. (5) Seizure disorder: * Per prior note, he had a witnessed seizure in 08/2018. He was discharged on Keppra that admission, but appears to no longer be on it. * Seizure precautions-- consider restarting Keppra if any concern for seizure * Continue tramadol at TID dosing, as done on last admission (6) Depression: * Chronic depression regarding chronic debilitation * Continue home quetiapine, escitalopram (7) Chronic pain: * Continue home tramadol - switched from Q6 to TID dosing, given history of seizure disorder * Continue home methocarbamol 500mg TID (8) Anxiety: * As above (9) Cardiomyopathy: * Prior EF as low as 25% per documentation. Last echo in 12/2017 showed EF 45-50%. * Continue to monitor volume status (10) DVT prophylaxis: * Heparin 5000 units Q12h Dispo: awaiting evaluation from [facility]- will recontact caregiver Don in AM after evaluation to see about placement vs return home Supervising Physician Co-Signing Physician Notes Attending attestation: Chart reviewed in detail, care plan d/w BENNETT Laboy. I agree w/ the mark components of her documentation. Patient with severe cerebrovascular disease s/p prior stroke with dense hemiplegia. He had previously been refusing all aspects of his care including routine meds - now willing to at least take his medications. However, still refusing Rx of his low sugars. Awaiting on psych for capacity determination but most evidence would suggest he still retains capacity. Complex social/living situation pre-hospital -- best option moving forward would be SNF. Jarrod Owens MD Subjective Patient evaluated at bedside. The patient expresses that he's doing ok, not better or worse than yesterday. He continues to states that he does not want to eat or receive treatment for low blood sugars. Contrary to previous discussions, the patient expressed today that he would possibly like to go home with previous caregiver, Don, if possible. Review of Systems Review of Systems: Other Language issues following CVA- see subjective for pertinent positives and negatives Physical Exam Constitutional: + physical limitations and + disheveled Eyes: PERRL, conjunctivae normal, anicteric sclerae ENMT: Ears: + hearing impairment Neck: trachea midline, no thyromegaly Respiratory: normal respiratory effort, lungs clear to auscultation Cardiovascular: RRR, no murmur, no edema Gastrointestinal (Abdomen): normal bowel sounds, soft, nontender, no hepatosplenomegaly Musculoskeletal: no cyanosis or clubbing, extremities motor strength 5/5 Skin: no rashes, warm and dry Neurologic: right sided hemiparesis + expressive aphasia and + receptive aphasia Psychiatric: Orientation: alert and oriented x 3 Results & Data Vital Signs (Past 12 Hours) Vital Signs Temp Pulse Pulse Resp BP Pulse Ox 12/05/18 11:23 36.6 C 109 H 18 133/81 98 12/05/18 00:50 36.6 C 92 H 20 135/92 99 Laboratory Results 12/05/18 12/05/18 12/05/18 Range/Units 16:17 12:00 08:57 WBC (4.8-10.8) K/uL RBC (4.7-6.1) M/uL Hgb (14.0-18.0) g/dL Hct (42-52) % MCV (80-100) fL MCH (25-34) pg MCHC (32-36) g/dL RDW Std Deviation (36.4-46.3) fL RDW Coeff of Yadira (11.5-14.5) % Plt Count (130-400) K/uL MPV (7.4-10.4) fL Sodium 134 L (136-145) mmol/L Potassium 4.1 (3.5-5.1) mmol/L Chloride 104 (98-107) mmol/L Carbon Dioxide 12 L (21-32) mmol/L Anion Gap 18.0 H (3-11) BUN 5 L (7-18) mg/dl Creatinine 0.99 (0.6-1.4) mg/dl Est Cr Clr Drug Dosing 72.0 ml/min Est GFR ( Amer) 100.4 Est GFR (Non-Af Amer) 86.6 BUN/Creatinine Ratio 5.2 L (10-20) Glucose 57 L (70-99) mg/dl POC Glucose 74 71 (70-99) Calcium 9.0 (8.5-10.1) mg/dl Magnesium 1.6 L (1.8-2.4) mg/dl 12/05/18 12/05/18 12/05/18 Range/Units 08:57 07:27 07:25 WBC 4.75 L (4.8-10.8) K/uL RBC 4.19 L (4.7-6.1) M/uL Hgb 13.8 L (14.0-18.0) g/dL Hct 39.4 L (42-52) % MCV 94.0 (80-100) fL MCH 32.9 (25-34) pg MCHC 35.0 (32-36) g/dL RDW Std Deviation 40.8 (36.4-46.3) fL RDW Coeff of Yadira 12.0 (11.5-14.5) % Plt Count 181 (130-400) K/uL MPV 9.5 (7.4-10.4) fL Sodium (136-145) mmol/L Potassium (3.5-5.1) mmol/L Chloride (98-107) mmol/L Carbon Dioxide (21-32) mmol/L Anion Gap (3-11) BUN (7-18) mg/dl Creatinine (0.6-1.4) mg/dl Est Cr Clr Drug Dosing ml/min Est GFR ( Amer) Est GFR (Non-Af Amer) BUN/Creatinine Ratio (10-20) Glucose (70-99) mg/dl POC Glucose 61 L* 64 L* (70-99) Calcium (8.5-10.1) mg/dl Magnesium (1.8-2.4) mg/dl 12/04/18 12/04/18 Range/Units 20:28 16:44 WBC (4.8-10.8) K/uL RBC (4.7-6.1) M/uL Hgb (14.0-18.0) g/dL Hct (42-52) % MCV (80-100) fL MCH (25-34) pg MCHC (32-36) g/dL RDW Std Deviation (36.4-46.3) fL RDW Coeff of Yadira (11.5-14.5) % Plt Count (130-400) K/uL MPV (7.4-10.4) fL Sodium (136-145) mmol/L Potassium (3.5-5.1) mmol/L Chloride (98-107) mmol/L Carbon Dioxide (21-32) mmol/L Anion Gap (3-11) BUN (7-18) mg/dl Creatinine (0.6-1.4) mg/dl Est Cr Clr Drug Dosing ml/min Est GFR ( Amer) Est GFR (Non-Af Amer) BUN/Creatinine Ratio (10-20) Glucose (70-99) mg/dl POC Glucose 64 L* 65 L* (70-99) Calcium (8.5-10.1) mg/dl Magnesium (1.8-2.4) mg/dl PG Care Time/CCT Total # of Minutes Spent Total Time Spent with Patient: Total time spent is greater than 50% in coordination of care (as documented) at patient's floor/unit and/or counseling patient: (1) Depression Depression Type: unspecified Qualified Code(s): F32.9 - Major depressive disorder, single episode, unspecified
[2018-12-06] MEDS: LORazepam 1 MG TAB PO PRN ×2 (00:01→23:06)
[2018-12-06] MEDS: ACETAMINOPHEN 325 MG TAB PO PRN ×2 (00:02→05:23)
[2018-12-06] MEDS: TRAMADOL HCL 50 MG TABLET PO PRN ×3 (01:30→17:23)
[2018-12-06] MEDS: IBUPROFEN 200 MG TAB PO PRN ×2 (06:46→16:30)
[2018-12-06 06:59] LABS: Hematocrit (blood only) 40.9 % (42-52); Hemoglobin 14.2 g/dL (14.0-18.0); Mean Corpuscular Hemoglobin 32.9 pg (25-34); Mean Corpuscular Hgb Conc 34.7 g/dL (32-36); Mean Corpuscular Volume 94.7 fL (80-100); Mean Platelet Volume 9.6 fL (7.4-10.4); Platelet Count 194 K/uL (130-400); RDW Coefficient of Variation 12.2 % (11.5-14.5); Red Blood Count 4.32 M/uL (4.7-6.1); White Blood Count 5.26 K/uL (4.8-10.8)
[2018-12-06 07:31] LABS: BUN Creatinine Ratio 6.3 (10-20); Calcium 9.5 mg/dl (8.5-10.1); Creatinine Clr Calc Pharmacy 63.7 ml/min; Est GFR (African American) 86.5; Est GFR (Non-African American) 74.6; Magnesium 1.7 mg/dl (1.8-2.4); Potassium 4.2 mmol/L (3.5-5.1)
[2018-12-06 07:33] LABS: Albumin Globulin Ratio 1.6 (0.9-2); Bilirubin,Total 0.6 mg/dl (0.2-1); Globulin 2.6 gm/dl (2.5-4.0); Phosphorus 2.3 mg/dl (2.5-4.9); Total Protein 6.6 gm/dl (6.4-8.2)
[2018-12-06] MEDS: MAGNESIUM CHLORIDE 64MG DELAYED REL TAB PO SCH ×2 (09:23→20:37)
[2018-12-06] MEDS: QUETIAPINE FUMARATE 25 MG TABLET PO SCH ×3 (09:24→20:33)
[2018-12-06] MEDS: METHOCARBAMOL 500 MG TABLET PO SCH ×3 (09:24→21:23)
[2018-12-06] MEDS: lisinopriL 20 MG TAB PO SCH (09:24)
[2018-12-06] MEDS: DOCUSATE SODIUM 100 MG CAP PO SCH ×2 (09:24→20:29)
[2018-12-06] MEDS: ESCITALOPRAM OXALATE 10 MG TAB PO SCH (09:24)
[2018-12-06] MEDS: HEPARIN SOD 5,000 UNIT/0.5 ML VIAL SQ SCH ×2 (09:26→20:44)
[2018-12-06] MEDS: GLUCOSE 10 TABS/TUBE PO SCH ×4 (09:31→20:39)
--- NOTE | 2018-12-06 14:31 | Hospitalist Progress Note ---
Date of Service December 06, 2018 Assessment & Plan (1) CVA, old, speech/language deficit: * Presented after hitting his head on the wall in frustration due to language issues. Reports he does not want to go home at this point and prefers placement. * On 12/01, he had no suicidal ideation, and he presently has no active suicidal intent; however, starting on 12/02 he began to refuse food, medications, labs, and blood sugar checks. He told previous attending that he wants to , however per discussion with patient yesterday, he was agreeable for lab draws and blood sugar checks, but was refusing any further interventions at this time. * Currently, he is refusing to treat hypoglycemia and IVs, but had been taking the rest of his scheduled medications as well as magnesium oral replacements. * Palliative on consult during admission- per Dr. Gregory, patient had not had significant decline in condition over past year * PT/OT- patient would benefit from SNF as patient requires much assistance with ADLs * OOA for level II evaluation * Discharge complicated by living situation, as patient lives with caregiver, Don, for past 20 years and no one had been able to get ahold of him to determine if he is able to continue to care for the patient or if that was an option at this point. Patient wrote "homeless" on whiteboard when asked about living situation. After contact with Don yesterday, he stated he was on a drinking binge for the past three days and states that is the reason no one could get ahold of him. He stated "I think I'm done with that stuff now" with regards to the alcohol. He stated that he doesn't believe he would be able to take Mr. Gardner back at that time because he doesn't think that's what the patient wants either. -- Patient today would like to return home with caregiver, Don, if possible. -- Will await psych evaluation to determine if patient with capacity to make decision to return home at this time, then will contact Don if able to return home. (2) RAVEN (acute kidney injury): * Creatinine on admission 1.71. After IV fluids, creatinine normalized to 0.83. * Patient was also given oral phos replacement for phos 2.2 with repeat improved to 3.3. * Phos 2.7 on repeat labs, with decline to 2.3 this AM * Will give oral potassium phosphate 30mmol QID and repeat in AM (3) Hypomagnesemia: * Patient with mag 1.6 on admission- replaced, with repeat 1.8. * Due to patient refusing IV, patient taking mag chloride 64mg PO BID currently * Mag improved slightly to 1.7 today * Will continue oral replacement and repeat level in AM (4) Hypertension: * Stable * Lisinopril originally held due to RAVEN- was restarted on 12/04 * BP currently 130/78. (5) Seizure disorder: * Per prior note, he had a witnessed seizure in 08/2018. He was discharged on Keppra that admission, but appears to no longer be on it. * Seizure precautions-- consider restarting Keppra if any concern for seizure * Continue tramadol at TID dosing, as done on last admission (6) Depression: * Chronic depression regarding chronic debilitation * Continue home quetiapine, escitalopram (7) Chronic pain: * Continue home tramadol - switched from Q6 to TID dosing, given history of seizure disorder * Continue home methocarbamol 500mg TID (8) Anxiety: * As above (9) Cardiomyopathy: * Prior EF as low as 25% per documentation. Last echo in 12/2017 showed EF 45-50%. * Continue to monitor volume status (10) Hypoglycemia: * As above * Prednisone 20mg today for wheezes appreciated (11) DVT prophylaxis: * Heparin 5000 units Q12h Dispo: awaiting psych to see if patient has capacity to decide if he is able to return home Supervising Physician Co-Signing Physician Notes Attending attestation: Chart reviewed in detail, care plan d/w BENNETT Laboy. I agree w/ the mark components of her documentation. Patient with severe cerebrovascular disease s/p prior stroke with dense hemiplegia. Complex social situation (see Ms Narda's excellent documentation of such). He had previously been refusing all aspects of his care including routine meds - now willing to at least take his medications. However, still refusing Rx of his low sugars. Uncertain why if willing to take his meds. Awaiting on psych for capacity determination but most evidence would suggest he still retains capacity. Office of aging heavily involved in this gentleman's case; social work assistance greatly appreciated. Patient with persistent anion-gap metabolic acidosis. Now that patient is seemingly wanting to continue routine care (he had been refusing all care prior) would work this up. Jarrod Owens MD Subjective Patient evaluated at bedside. He states he is feeling ok. States he still does not want any treatment for low blood sugars. He continues to express that he understands that refusal to treat hypoglycemia may result in tissue and organ damage as well as coma/. When asked about discharge after hospitalization, he voices that he would like to return home with Don if he is able to. He denies any chest pain, shortness of breath, abdominal pain, fevers or chills at this time. Review of Systems Review of Systems: Limited due to language issues following CVA and increased frustration/agitation- see subjective for pertinent positives and negatives Physical Exam Physical Exam: Constitutional + physical limitations and + disheveled Eyes PERRL, conjunctivae normal, anicteric sclerae ENMT Ears: + hearing impairment Neck trachea midline, no thyromegaly Respiratory normal respiratory effort, + expiratory wheeze RUL Cardiovascular RRR, no murmur, no edema Gastrointestinal (Abdomen) normal bowel sounds, soft, nontender, no hepatosplenomegaly. Very thin- pulsatile abdominal mass appreciated left epigastric region Musculoskeletal no cyanosis or clubbing, extremities motor strength 5/5 Skin no rashes, warm and dry Neurologic right sided hemiparesis + expressive aphasia and + receptive aphasia cooperative Psychiatric Orientation: alert and oriented x 3 Results & Data Vital Signs (Past 12 Hours) Vital Signs Temp Pulse Resp BP Pulse Ox 12/06/18 14:05 37.0 C 106 H 18 130/78 98 Laboratory Results 12/06/18 12/06/18 Range/Units 06:42 06:42 WBC 5.26 (4.8-10.8) K/uL RBC 4.32 L (4.7-6.1) M/uL Hgb 14.2 (14.0-18.0) g/dL Hct 40.9 L (42-52) % MCV 94.7 (80-100) fL MCH 32.9 (25-34) pg MCHC 34.7 (32-36) g/dL RDW Std Deviation 42.0 (36.4-46.3) fL RDW Coeff of Yadira 12.2 (11.5-14.5) % Plt Count 194 (130-400) K/uL MPV 9.6 (7.4-10.4) fL Sodium 134 L (136-145) mmol/L Potassium 4.2 (3.5-5.1) mmol/L Chloride 106 (98-107) mmol/L Carbon Dioxide 12 L (21-32) mmol/L Anion Gap 17.0 H (3-11) BUN 7 (7-18) mg/dl Creatinine 1.12 (0.6-1.4) mg/dl Est Cr Clr Drug Dosing 63.7 ml/min Est GFR ( Amer) 86.5 Est GFR (Non-Af Amer) 74.6 BUN/Creatinine Ratio 6.3 L (10-20) Glucose 61 L (70-99) mg/dl Calcium 9.5 (8.5-10.1) mg/dl Phosphorus 2.3 L (2.5-4.9) mg/dl Magnesium 1.7 L (1.8-2.4) mg/dl Total Bilirubin 0.6 (0.2-1) mg/dl AST 14 L (15-37) U/L ALT 13 (12-78) U/L Alkaline Phosphatase 62 (45-117) U/L Total Protein 6.6 (6.4-8.2) gm/dl Albumin 4.0 (3.4-5.0) gm/dl Globulin 2.6 (2.5-4.0) gm/dl Albumin/Globulin Ratio 1.6 (0.9-2) PG Care Time/CCT Total # of Minutes Spent Total Time Spent with Patient: Total time spent is greater than 50% in coordination of care (as documented) at patient's floor/unit and/or counseling patient: (1) Depression Depression Type: unspecified Qualified Code(s): F32.9 - Major depressive disorder, single episode, unspecified
[2018-12-06] MEDS ORDERED: predniSONE 20 MG TAB PO STA (14:45)
[2018-12-06] MEDS: POT PHOSPHATE MONOBASIC W/ SOD TAB PO SCH ×2 (16:01→20:31)
--- NOTE | 2018-12-06 21:16 | Communication Note ---
Date of Service: December 06, 2018 Impression / Recommendations Impression Request received to re-evaluate patient for capacity to make "treatment decisions." It has been requested that our service be provided with the specific treatment recommendation that the patient is refusing in order to provide an appropriate determination. It remains unclear what specific recommendation is being presented that the patient is refusing, and clarification has been requested from the primary team. In all of this, we must remember that the patient has already made his wishes to be a DNR/DNI known - and that he has been clear about his desire to be selective about medical treatment which would prolong his life, even prior to this admission. Capacity determination is made individually for each treatment recommendation being refused. In order for a determination to be made, there needs to be documentation of treatment recommendation being suggested, review of risks and benefits presented, alternative treatment options discussed, patient's response to the recommendation, and the decision being presented by the patient. Without this, our service is not able to effectively understand the conversation that has already been presented to the patient. As a reminder, it is appropriate for any medical provider to make a determination of capacity for a specific decision based on conversation covering the topics above. And it appears that there are already opinions in the patient's chart suggesting the patient "retains capacity" based on these conversations. In order to have capacity to make a specific decision, the patient must be able to demonstrate ability to recall/understand recommendations presented - appreciate the risks and benefits of the decision - provide rational reasoning leading to verbalized choice - and be able to effectively communicate a specific decision. If these four parameters are met, the patient is deemed to have capacity, at the time of the assessment, to refuse recommended treatment. Again, it appears that this has been determined by the medical team based on previous conversations with the patient about various treatment decisions. We would be happy to provide assistance, but we cannot render an opinion on the subject until it is clear what specific decision is being questioned and have a better understanding of what has been reviewed with the patient already. Risk Factors Assessment Do You Have Access To A Gun?: No Physical Exam Vital Signs (Past 24 Hours) Last Vital Signs Temp 36.9 C 12/06/18 16:52 Pulse 113 H 12/06/18 16:52 Resp 18 12/06/18 16:52 BP 145/93 H 12/06/18 16:52 Pulse Ox 96 12/06/18 16:52 Results & Data Laboratory Results Laboratory Results - last 24 hr 12/06/18 12/06/18 06:42 06:42 WBC 5.26 RBC 4.32 L Hgb 14.2 Hct 40.9 L MCV 94.7 MCH 32.9 MCHC 34.7 RDW Std Deviation 42.0 RDW Coeff of Yadira 12.2 Plt Count 194 MPV 9.6 Sodium 134 L Potassium 4.2 Chloride 106 Carbon Dioxide 12 L Anion Gap 17.0 H BUN 7 Creatinine 1.12 Est Cr Clr Drug Dosing 63.7 Est GFR ( Amer) 86.5 Est GFR (Non-Af Amer) 74.6 BUN/Creatinine Ratio 6.3 L Glucose 61 L Calcium 9.5 Phosphorus 2.3 L Magnesium 1.7 L Total Bilirubin 0.6 AST 14 L ALT 13 Alkaline Phosphatase 62 Total Protein 6.6 Albumin 4.0 Globulin 2.6 Albumin/Globulin Ratio 1.6 Current Inpatient Medications Current Inpatient Medications: Acetaminophen (Tylenol) 650 mg PO Q4H PRN PRN Reason: pain/fever Stop: 12/30/18 13:18 Last Admin: 12/06/18 05:23 Dose: 650 mg Documented by: Al Hydrox/Mg Hydrox/Simethicone (Maalox) 30 ml PO Q6H PRN PRN Reason: Dyspepsia Stop: 12/30/18 13:18 Docusate Sodium (Colace) 100 mg PO BID [facility] Stop: 12/31/18 20:59 Last Admin: 12/06/18 20:29 Dose: 100 mg Documented by: Escitalopram Oxalate (Lexapro Tab) 5 mg PO DAILY [facility] Stop: 12/31/18 08:59 Last Admin: 12/06/18 09:24 Dose: 5 mg Documented by: Glucose (Dex4 Glucose) 2 tabs PO QID [facility] Stop: 01/03/19 16:59 Last Admin: 12/06/18 20:39 Dose: 2 tabs Documented by: Heparin Sodium (Porcine) (Heparin Sodium (Porcine)) 5,000 units SQ Q12H [facility] Stop: 12/31/18 20:59 Last Admin: 12/06/18 09:26 Dose: 5,000 units Documented by: Ibuprofen (Advil) 400 mg PO TID PRN PRN Reason: Pain Stop: 12/31/18 17:34 Last Admin: 12/06/18 16:30 Dose: 400 mg Documented by: Lisinopril (Zestril) 20 mg PO QAM [facility] Stop: 01/01/19 08:59 Last Admin: 12/06/18 09:24 Dose: 20 mg Documented by: Lorazepam (Ativan) 1 mg PO Q4H PRN PRN Reason: Anxiety Stop: 01/02/19 00:44 Last Admin: 12/06/18 00:01 Dose: 1 mg Documented by: Magnesium Chloride (Slow-Mag) 64 mg PO BID [facility] Stop: 01/02/19 18:59 Last Admin: 12/06/18 20:37 Dose: 64 mg Documented by: Magnesium Hydroxide (Milk Of Magnesia) 30 ml PO Q6H PRN PRN Reason: Constipation Stop: 12/30/18 13:18 Methocarbamol (Robaxin) 500 mg PO TID [facility] Stop: 12/30/18 13:59 Last Admin: 12/06/18 16:02 Dose: 500 mg Documented by: Polyethylene Glycol (Miralax Powder Packet) 17 gm PO DAILY PRN PRN Reason: Constipation Stop: 12/30/18 13:18 Potassium Phosphate (Phospha 250 Neutral [id number] Mg) 2 tab PO QID [facility] Stop: 01/05/19 16:59 Last Admin: 12/06/18 20:31 Dose: 2 tab Documented by: Quetiapine Fumarate (Seroquel) 12.5 mg PO TID@0800,1500,2100 [facility] Stop: 12/30/18 14:59 Last Admin: 12/06/18 20:33 Dose: 12.5 mg Documented by: Tramadol HCl (Ultram) 50 mg PO TID PRN PRN Reason: Pain Stop: 12/30/18 13:18 Last Admin: 12/06/18 17:23 Dose: 50 mg Documented by:
[2018-12-07] MEDS: IBUPROFEN 200 MG TAB PO PRN ×3 (02:26→20:57)
[2018-12-07] MEDS: TRAMADOL HCL 50 MG TABLET PO PRN ×3 (03:59→17:34)
[2018-12-07 07:06] LABS: Hematocrit (blood only) 40.9 % (42-52); Hemoglobin 14.8 g/dL (14.0-18.0); Mean Corpuscular Hemoglobin 33.6 pg (25-34); Mean Corpuscular Hgb Conc 36.2 g/dL (32-36); Mean Platelet Volume 9.8 fL (7.4-10.4); Platelet Count 209 K/uL (130-400); RDW Coefficient of Variation 11.9 % (11.5-14.5); RDW Standard Deviation 40.4 fL (36.4-46.3); White Blood Count 5.98 K/uL (4.8-10.8)
[2018-12-07 07:38] LABS: BUN Creatinine Ratio 8.3 (10-20); Calcium 8.9 mg/dl (8.5-10.1); Creatinine Clr Calc Pharmacy 55.3 ml/min; Est GFR (African American) 72.9; Est GFR (Non-African American) 62.9; Magnesium 1.6 mg/dl (1.8-2.4); Potassium 4.2 mmol/L (3.5-5.1)
[2018-12-07 07:45] LABS: Phosphorus 3.4 mg/dl (2.5-4.9)
[2018-12-07] MEDS: QUETIAPINE FUMARATE 25 MG TABLET PO SCH ×3 (09:17→21:02)
[2018-12-07] MEDS: DOCUSATE SODIUM 100 MG CAP PO SCH ×2 (09:17→20:56)
[2018-12-07] MEDS: ESCITALOPRAM OXALATE 10 MG TAB PO SCH (09:17)
[2018-12-07] MEDS: POT PHOSPHATE MONOBASIC W/ SOD TAB PO SCH ×4 (09:18→20:58)
[2018-12-07] MEDS: METHOCARBAMOL 500 MG TABLET PO SCH ×3 (09:18→21:01)
[2018-12-07] MEDS: predniSONE 10 MG TABLET PO SCH (09:19)
[2018-12-07] MEDS: GLUCOSE 10 TABS/TUBE PO SCH ×4 (09:20→21:08)
[2018-12-07] MEDS: MAGNESIUM CHLORIDE 64MG DELAYED REL TAB PO SCH ×2 (09:21→21:03)
[2018-12-07] MEDS: ACETAMINOPHEN 325 MG TAB PO PRN ×3 (09:23→19:18)
[2018-12-07] MEDS: HEPARIN SOD 5,000 UNIT/0.5 ML VIAL SQ SCH ×2 (09:26→20:58)
[2018-12-07] MEDS: lisinopriL 20 MG TAB PO SCH (10:23)
--- NOTE | 2018-12-07 10:30 | Hospitalist Progress Note ---
Date of Service December 07, 2018 Assessment & Plan (1) AMARILYS, old, speech/language deficit: * Presented after hitting his head on the wall in frustration due to language issues. Reports he does not want to go home at this point and prefers placement. * On 12/01, he had no suicidal ideation, and he presently has no active suicidal intent; however, starting on 12/02 he began to refuse food, medications, labs, and blood sugar checks. He told previous attending that he wants to , however per discussion with patient yesterday, he was agreeable for lab draws and blood sugar checks, but was refusing any further interventions at this time. * Currently, he is refusing to treat hypoglycemia and IVs, but had been taking the rest of his scheduled medications as well as magnesium oral replacements. * Palliative on consult during admission- per Dr. Gregory, patient had not had significant decline in condition over past year * PT/OT- patient would benefit from SNF as patient requires much assistance with ADLs * OOA for level II evaluation * Discharge complicated by living situation, as patient lives with caregiver, Don, for past 20 years and no one had been able to get ahold of him to determine if he is able to continue to care for the patient or if that was an option at this point. Patient wrote "homeless" on whiteboard when asked about living situation. After contact with Don earlier this week, he stated he was on a drinking binge for the past three days and states that is the reason no one could get ahold of him. He stated "I think I'm done with that stuff now" with regards to the alcohol. He stated that he doesn't believe he would be able to take Mr. Gardner back at that time because he doesn't think that's what the patient wants either. [facility] met with pt-- She stated that pt denies that Don drinks (even though Don admitted to this via a phone call earlier in the week) and pt wants to return home. [facility] did offer pt other living arrangements such as a different apartment or assisted living and pt stated No. [facility] was also going to talk with Don. Per CM, "letter received from Department of Human Services that pt does not "meet the mental health criteria for further review by our office". Pt has been determined to be halfway eligible when I spoke with Rajat at the [facility] just now. He states they just have to sign the MA-51 which will be done Monday. If pt is still willing to go to SNF, I will work on the SNF auth on Monday when his insurance is open. If pt has capacity to make his own decisions he could choose to return home with his caregiver/poa." -- Patient stated would like to return home with caregiver, Don, if possible -- per supervising physician, psych attending to perform evaluation today to see if patient with capacity to make decision to return home at this time, then will contact Don if able to return home. -- If patient to return home, possible need for additional caregivers to split time in order to give Don less time as sole caregiver. (2) RAVEN (acute kidney injury): * Creatinine on admission 1.71. After IV fluids, creatinine normalized to 0.83, however since then patient has refused IV * Creatinine 1.29 today -- will continue to monitor (3) Hypophosphatemia: * Improved * Patient was also given oral phos replacement for phos 2.2 with repeat improved to 3.3. * Phos 3.4 today, wnl. * Will continue oral potassium phosphate 30mmol QID due to lack of diet * Repeat in AM (4) Hypomagnesemia: * Patient with mag 1.6 on admission- replaced, with repeat 1.8. * Due to patient refusing IV, patient taking mag chloride 64mg PO BID currently * Mag continues to be low, at 1.6 * Will continue oral replacement and repeat level in AM (5) Hypertension: * Elevated * Lisinopril originally held due to RAVEN- was restarted on 12/04 * BP currently 151/91 * Asymptomatic, will continue to monitor (6) Seizure disorder: * Per prior note, he had a witnessed seizure in 08/2018. He was discharged on Keppra that admission, but appears to no longer be on it. * Seizure precautions-- consider restarting Keppra if any concern for seizure * Continue tramadol at TID dosing, as done on last admission (7) Depression: * Chronic depression regarding chronic debilitation * Continue home quetiapine, escitalopram (8) Chronic pain: * Continue home tramadol - switched from Q6 to TID dosing, given history of seizure disorder * Continue home methocarbamol 500mg TID (9) Anxiety: * As above (10) Cardiomyopathy: * Prior EF as low as 25% per documentation. Last echo in 12/2017 showed EF 45-50%. (11) Hypoglycemia: * As above * Prednisone 10mg (12) DVT prophylaxis: * Heparin 5000 units Q12h Dispo: awaiting competency, OOA, Adult protective services, etc for discharge planning prior to d/c (13) Hyponatremia: (14) Acidosis: Supervising Physician Co-Signing Physician Notes Attending attestation: Chart reviewed in detail, care plan d/w BENNETT Laboy. I agree w/ the mark components of her documentation. Pt's disposition is still largely in question. Office of aging still needs to make a determination about Mr Gardner. Social work heavily involved as well. Formal capacity eval with psych pending. Early on pt was refusing ALL care. As the week has gone on he is now allowing more care to occur. Given the transition -- --Hypoglycemia - likely 2nd to poor oral intake. Started steroids to help booster the glucose as he had been refusing fluids, etc prior. Could consider cortisol level but recent steroids may make the level inaccurate. --Hyponatremia - likely hypotonic - consider fluids if he will allow. --Acidosis - uncertain etiology - check lactate, check blood gas. Jarrod Owens MD Subjective Patient evaluated this evening. He was up to the side of the bed with 1:1 present at bedside. He continues to express he would like to go home with previous caregiver, Don. Conversation was had regarding the need for further documentation and needing to make sure it is safe to return home, with patient nodding head in agreement and said "yes" when asked if he understood. He continues to express his shoulder pain, which is chronic and unchanged. He continues to agree to take oral medications outside of glucose tablets, but he still refuses IV. Patient denies any chest pain, shortness of breath, cough, abdominal pain, n/ v/d, fever, chills. He nodded head in agreement that he understands he may not be discharged until later this or monday until placement issues can be resolved. Review of Systems Review of Systems: Other Language barrier- patient uses white board for questions/concerns Physical Exam Constitutional: + thin, + physical limitations, + frail appearing and + underweight Eyes: PERRL, conjunctivae normal, anicteric sclerae ENMT: Ears: + hearing impairment Neck: trachea midline, no thyromegaly Respiratory: normal respiratory effort, lungs clear to auscultation Cardiovascular: RRR, no murmur, no edema Gastrointestinal (Abdomen): normal bowel sounds, soft, nontender, no hepatosplenomegaly thin Musculoskeletal: no cyanosis or clubbing, extremities motor strength 5/5 Skin: no rashes, warm and dry Neurologic: right sided hemiparesis + expressive aphasia and + receptive aphasia Psychiatric: Orientation: alert and oriented x 3 Results & Data Vital Signs (Past 12 Hours) Vital Signs Temp Pulse Resp BP Pulse Ox 12/07/18 06:53 36.9 C 96 H 18 151/91 H 97 Laboratory Results 12/07/18 12/07/18 12/07/18 Range/Units 07:41 06:47 06:47 WBC 5.98 (4.8-10.8) K/uL RBC 4.40 L (4.7-6.1) M/uL Hgb 14.8 (14.0-18.0) g/dL Hct 40.9 L (42-52) % MCV 93.0 (80-100) fL MCH 33.6 (25-34) pg MCHC 36.2 H (32-36) g/dL RDW Std Deviation 40.4 (36.4-46.3) fL RDW Coeff of Yadira 11.9 (11.5-14.5) % Plt Count 209 (130-400) K/uL MPV 9.8 (7.4-10.4) fL Sodium 133 L (136-145) mmol/L Potassium 4.2 (3.5-5.1) mmol/L Chloride 103 (98-107) mmol/L Carbon Dioxide 14 L (21-32) mmol/L Anion Gap 16.0 H (3-11) BUN 11 D (7-18) mg/dl Creatinine 1.29 (0.6-1.4) mg/dl Est Cr Clr Drug Dosing 55.3 ml/min Est GFR ( Amer) 72.9 Est GFR (Non-Af Amer) 62.9 BUN/Creatinine Ratio 8.3 L (10-20) Glucose 80 (70-99) mg/dl POC Glucose 80 (70-99) Calcium 8.9 (8.5-10.1) mg/dl Phosphorus 3.4 D (2.5-4.9) mg/dl Magnesium 1.6 L (1.8-2.4) mg/dl 12/07/18 Range/Units 00:05 WBC (4.8-10.8) K/uL RBC (4.7-6.1) M/uL Hgb (14.0-18.0) g/dL Hct (42-52) % MCV (80-100) fL MCH (25-34) pg MCHC (32-36) g/dL RDW Std Deviation (36.4-46.3) fL RDW Coeff of Yadira (11.5-14.5) % Plt Count (130-400) K/uL MPV (7.4-10.4) fL Sodium (136-145) mmol/L Potassium (3.5-5.1) mmol/L Chloride (98-107) mmol/L Carbon Dioxide (21-32) mmol/L Anion Gap (3-11) BUN (7-18) mg/dl Creatinine (0.6-1.4) mg/dl Est Cr Clr Drug Dosing ml/min Est GFR ( Amer) Est GFR (Non-Af Amer) BUN/Creatinine Ratio (10-20) Glucose (70-99) mg/dl POC Glucose 135 H (70-99) Calcium (8.5-10.1) mg/dl Phosphorus (2.5-4.9) mg/dl Magnesium (1.8-2.4) mg/dl PG Care Time/CCT Total # of Minutes Spent Total Time Spent with Patient: Total time spent is greater than 50% in coordination of care (as documented) at patient's floor/unit and/or counseling patient: (1) Depression Depression Type: unspecified Qualified Code(s): F32.9 - Major depressive disorder, single episode, unspecified
[2018-12-07] MEDS: LORazepam 1 MG TAB PO PRN ×2 (13:03→20:56)
[2018-12-08] MEDS: TRAMADOL HCL 50 MG TABLET PO PRN ×2 (02:10→14:51)
[2018-12-08 06:57] LABS: Hematocrit (blood only) 37.6 % (42-52); Hemoglobin 13.9 g/dL (14.0-18.0); Mean Corpuscular Volume 89.3 fL (80-100); Mean Platelet Volume 9.5 fL (7.4-10.4); Platelet Count 189 K/uL (130-400); RDW Coefficient of Variation 11.9 % (11.5-14.5); RDW Standard Deviation 38.6 fL (36.4-46.3); Red Blood Count 4.21 M/uL (4.7-6.1); White Blood Count 5.57 K/uL (4.8-10.8)
[2018-12-08 07:19] LABS: Albumin Level 3.7 gm/dl (3.4-5.0); BUN Creatinine Ratio 9.4 (10-20); Calcium 8.8 mg/dl (8.5-10.1); Creatinine Clr Calc Pharmacy 58.9 ml/min; Est GFR (African American) 78.7; Est GFR (Non-African American) 67.9; Magnesium 1.6 mg/dl (1.8-2.4); Potassium 3.6 mmol/L (3.5-5.1)
[2018-12-08 07:23] LABS: Albumin Globulin Ratio 1.5 (0.9-2); Bilirubin,Total 0.8 mg/dl (0.2-1); Globulin 2.5 gm/dl (2.5-4.0); Phosphorus 4.2 mg/dl (2.5-4.9); Total Protein 6.2 gm/dl (6.4-8.2)
[2018-12-08 07:25] LABS: Base Excess VBG -5.2 mEq/L; Oxygen Saturation VBG 94.2 %; pH VBG 7.39 (7.36-7.41)
[2018-12-08] MEDS: LORazepam 1 MG TAB PO PRN ×2 (08:11→17:29)
[2018-12-08] MEDS: ACETAMINOPHEN 325 MG TAB PO PRN ×3 (08:11→20:02)
[2018-12-08] MEDS: lisinopriL 20 MG TAB PO SCH (08:11)
[2018-12-08] MEDS: QUETIAPINE FUMARATE 25 MG TABLET PO SCH ×3 (08:12→20:07)
[2018-12-08] MEDS: ESCITALOPRAM OXALATE 10 MG TAB PO SCH (08:12)
[2018-12-08] MEDS: POT PHOSPHATE MONOBASIC W/ SOD TAB PO SCH ×2 (08:12→14:29)
[2018-12-08] MEDS: predniSONE 10 MG TABLET PO SCH (08:12)
[2018-12-08] MEDS: DOCUSATE SODIUM 100 MG CAP PO SCH ×2 (08:12→20:03)
[2018-12-08] MEDS: MAGNESIUM CHLORIDE 64MG DELAYED REL TAB PO SCH ×3 (08:13→20:08)
[2018-12-08] MEDS: METHOCARBAMOL 500 MG TABLET PO SCH ×3 (08:13→20:07)
[2018-12-08] MEDS: IBUPROFEN 200 MG TAB PO PRN ×2 (08:14→17:31)
[2018-12-08] MEDS: HEPARIN SOD 5,000 UNIT/0.5 ML VIAL SQ SCH ×2 (08:23→20:06)
[2018-12-08] MEDS: GLUCOSE 10 TABS/TUBE PO SCH ×4 (08:23→20:03)
--- NOTE | 2018-12-08 09:41 | Hospitalist Progress Note ---
Date of Service December 08, 2018 Assessment & Plan (1) AMARILYS, old, speech/language deficit: * Presented after hitting his head on the wall in frustration due to language issues. Reports he does not want to go home at this point and prefers placement. * On 12/01, he had no suicidal ideation, and he presently has no active suicidal intent; however, starting on 12/02 he began to refuse food, medications, labs, and blood sugar checks. He told previous attending that he wants to , however per discussion with patient yesterday, he was agreeable for lab draws and blood sugar checks, but was refusing any further interventions at this time. * Currently, he is refusing to treat hypoglycemia and IVs, but had been taking the rest of his scheduled medications as well as magnesium oral replacements. * Palliative on consult during admission- per Dr. Gregory, patient had not had significant decline in condition over past year * PT/OT- patient would benefit from SNF as patient requires much assistance with ADLs * [facility] for level II evaluation * Discharge complicated by living situation, as patient lives with caregiver, Don, for past 20 years and no one had been able to get ahold of him to determine if he is able to continue to care for the patient or if that was an option at this point. Patient wrote "homeless" on whiteboard when asked about living situation. After contact with Don earlier this week, he stated he was on a drinking binge for the past three days and states that is the reason no one could get ahold of him. He stated "I think I'm done with that stuff now" with regards to the alcohol. He stated that he doesn't believe he would be able to take Mr. Gardner back at that time because he doesn't think that's what the patient wants either. [facility] met with pt-- She stated that pt denies that Don drinks (even though Don admitted to this via a phone call earlier in the week) and pt wants to return home. [facility] did offer pt other living arrangements such as a different apartment or assisted living and pt stated No. [facility] was also going to talk with Don. Per CM, "letter received from Department of Human Services that pt does not "meet the mental health criteria for further review by our office". Pt has been determined to be senior care eligible when I spoke with Rajat at the [facility] just now. He states they just have to sign the MA-51 which will be done Monday. If pt is still willing to go to SNF, I will work on the SNF auth on Monday when his insurance is open. If pt has capacity to make his own decisions he could choose to return home with his caregiver/poa." -- Patient stated would like to return home with caregiver, Don, if possible -- per supervising physician, psych attending to perform evaluation yesterday to see if patient with capacity to make decision to return home at this time, then will contact Don if able to return home. -- If patient to return home, possible need for additional caregivers to split time in order to give Don less time as sole caregiver. --Contacted psych liaison Mr. Sanchez to ensure message passed along to Dr. Clark- will await input (2) RAVEN (acute kidney injury): * Creatinine on admission 1.71. After IV fluids, creatinine normalized to 0.83, however since then patient has refused IV * Creatinine decreased to 1.21 today from 1.29 -- patient continuing to take adequate oral intake * Will continue to monitor (3) Hypophosphatemia: * Improved * Patient was also given oral phos replacement for phos 2.2 with repeat improved to 3.3. * Phos 4.2 today, wnl -- will hold oral potassium phosphate for now, and repeat in AM (4) Hypomagnesemia: * Patient with mag 1.6 on admission- replaced, with repeat 1.8. * Due to patient refusing IV, patient taking mag chloride 64mg PO BID currently * Mag continues to be low, at 1.6 * Will increase oral replacement to TID dosing * Repeat level in AM (5) Hypertension: * Elevated * Lisinopril originally held due to RAVEN- was restarted on 12/04 * BP currently 141/86 * Asymptomatic, will continue to monitor (6) Seizure disorder: * Per prior note, he had a witnessed seizure in 08/2018. He was discharged on Keppra that admission, but appears to no longer be on it. * Seizure precautions-- consider restarting Keppra if any concern for seizure * Continue tramadol at TID dosing, as done on last admission because tramadol can lower seizure threshold * no recent head imaging but given his unwillingness for testing and such, will not pursue at this time (7) Depression: * Chronic depression regarding chronic debilitation * Continue home quetiapine, escitalopram (8) Chronic pain: * Continue home tramadol - switched from Q6 to TID dosing, given history of seizure disorder * Continue home methocarbamol 500mg TID (9) Anxiety: * As above (10) Cardiomyopathy: * Prior EF as low as 25% per documentation. Last echo in 12/2017 showed EF 45-50%. * continue lisinopril * is not on a beta owen and could benefit if willing to take (11) Hypoglycemia: * As above * Prednisone discontinued * Patient receiving glucose tabs QID (12) Hyponatremia: * Sodium 133 today * Will give oral replacement as patient does not want IV (13) Acidosis: * Anion gap as high as 16.0 during admission * Bicarb as low as 12 on 12/05 * Bicarb normalized today to 21, Lactic 0.6, VBG with pH 7.31, pCO2 31, pO2 72, HCO3 18, O2 sat 94.2% * Cortisol wnl * Urine Osm, Urine Sodium, TSH pending * BMP in AM (14) DVT prophylaxis: * Heparin 5000 units Q12h Dispo: awaiting competency, OOA, Adult protective services, etc for discharge planning prior to d/c Supervising Physician Co-Signing Physician Notes PA Supervision Note: I did not personally see or examine the patient today, but I verified all mark points of BENNETT Laboy's assessment and plan with the following exceptions/additions: None Subjective Patient seen this morning. Prior to entry, he was sleeping peacefully in bed, with 1:1 at bedside. Patient states he is feeling alright. He is still agreeable to oral medications, and has most recently started to take the oral glucose, although he still is continuing to refuse food. He confirmed that Don was in yesterday to see him, as well as his mother, and that he would still like to go home with Don. He denies any chest pain, shortness of breath, abdominal pain, n/v, fevers or chills. When asked about bowel movements, he expressed that he thought he might have to go to the bathroom this morning but nothing came out. He has been taking oral intake and urinating without dysuria or hematuria. He does also continue to confirm that he has shoulder pain, which is there all the time and has not changed in severity or location. Review of Systems Review of Systems: Other language barrier due to CVA- communication with minimal verbiage and white board Constitutional: + anorexia; no fever and no chills Respiratory: no cough, no chest congestion and no dyspnea Cardiovascular: no chest pain, no palpitations and no edema Gastrointestinal: no bowel movement Genitourinary: no dysuria and no urinary frequency Musculoskeletal: left shoulder pain- "always" Integumentary: no rash and no pruritus Physical Exam Constitutional: + thin, + physical limitations, + frail appearing and + underweight Eyes: PERRL, conjunctivae normal, anicteric sclerae ENMT: Ears: + hearing impairment Neck: trachea midline, no thyromegaly Respiratory: normal respiratory effort, lungs clear to auscultation Cardiovascular: RRR, no murmur, no edema Gastrointestinal (Abdomen): normal bowel sounds, soft, nontender, no hepatosplenomegaly Musculoskeletal: no cyanosis or clubbing, extremities motor strength 5/5 Skin: no rashes warm, no decreased turgor Psychiatric: Orientation: alert and oriented x 3 Results & Data Vital Signs (Past 12 Hours) Vital Signs Temp Pulse Resp BP Pulse Ox 12/07/18 23:00 36.5 C 97 H 19 141/86 H 97 Laboratory Results 12/08/18 12/08/18 12/08/18 Range/Units 07:10 07:10 07:10 WBC (4.8-10.8) K/uL RBC (4.7-6.1) M/uL Hgb (14.0-18.0) g/dL Hct (42-52) % MCV (80-100) fL MCH (25-34) pg MCHC (32-36) g/dL RDW Std Deviation (36.4-46.3) fL RDW Coeff of Yadira (11.5-14.5) % Plt Count (130-400) K/uL MPV (7.4-10.4) fL VBG pH 7.39 (7.36-7.41) VBG pCO2 31 L (38-50) mmHg VBG pO2 71 mmHg VBG HCO3 18 mmol/L VBG O2 Saturation 94.2 % VBG Base Excess -5.2 mEq/L Barometric Pressure 737.4 mm/Hg Sodium (136-145) mmol/L Potassium (3.5-5.1) mmol/L Chloride (98-107) mmol/L Carbon Dioxide (21-32) mmol/L Anion Gap (3-11) BUN (7-18) mg/dl Creatinine (0.6-1.4) mg/dl Est Cr Clr Drug Dosing ml/min Est GFR ( Amer) Est GFR (Non-Af Amer) BUN/Creatinine Ratio (10-20) Glucose (70-99) mg/dl POC Glucose (70-99) Lactate 0.6 (0.4-2.0) mmol/L Calcium (8.5-10.1) mg/dl Phosphorus (2.5-4.9) mg/dl Magnesium (1.8-2.4) mg/dl Total Bilirubin (0.2-1) mg/dl AST (15-37) U/L ALT (12-78) U/L Alkaline Phosphatase (45-117) U/L Total Protein (6.4-8.2) gm/dl Albumin (3.4-5.0) gm/dl Globulin (2.5-4.0) gm/dl Albumin/Globulin Ratio (0.9-2) Cortisol AM Sample 14.14 (4.3-22.4) mcg/dl 12/08/18 12/08/18 12/07/18 Range/Units 06:26 06:26 20:14 WBC 5.57 (4.8-10.8) K/uL RBC 4.21 L (4.7-6.1) M/uL Hgb 13.9 L (14.0-18.0) g/dL Hct 37.6 L (42-52) % MCV 89.3 (80-100) fL MCH 33.0 (25-34) pg MCHC 37.0 H (32-36) g/dL RDW Std Deviation 38.6 (36.4-46.3) fL RDW Coeff of Yadira 11.9 (11.5-14.5) % Plt Count 189 (130-400) K/uL MPV 9.5 (7.4-10.4) fL VBG pH (7.36-7.41) VBG pCO2 (38-50) mmHg VBG pO2 mmHg VBG HCO3 mmol/L VBG O2 Saturation % VBG Base Excess mEq/L Barometric Pressure mm/Hg Sodium 133 L (136-145) mmol/L Potassium 3.6 (3.5-5.1) mmol/L Chloride 100 (98-107) mmol/L Carbon Dioxide 21 (21-32) mmol/L Anion Gap 12.0 H (3-11) BUN 11 (7-18) mg/dl Creatinine 1.21 (0.6-1.4) mg/dl Est Cr Clr Drug Dosing 58.9 ml/min Est GFR ( Amer) 78.7 Est GFR (Non-Af Amer) 67.9 BUN/Creatinine Ratio 9.4 L (10-20) Glucose 78 (70-99) mg/dl POC Glucose 122 H (70-99) Lactate (0.4-2.0) mmol/L Calcium 8.8 (8.5-10.1) mg/dl Phosphorus 4.2 (2.5-4.9) mg/dl Magnesium 1.6 L (1.8-2.4) mg/dl Total Bilirubin 0.8 (0.2-1) mg/dl AST 10 L (15-37) U/L ALT 14 (12-78) U/L Alkaline Phosphatase 58 (45-117) U/L Total Protein 6.2 L (6.4-8.2) gm/dl Albumin 3.7 (3.4-5.0) gm/dl Globulin 2.5 (2.5-4.0) gm/dl Albumin/Globulin Ratio 1.5 (0.9-2) Cortisol AM Sample (4.3-22.4) mcg/dl 12/07/18 Range/Units 16:35 WBC (4.8-10.8) K/uL RBC (4.7-6.1) M/uL Hgb (14.0-18.0) g/dL Hct (42-52) % MCV (80-100) fL MCH (25-34) pg MCHC (32-36) g/dL RDW Std Deviation (36.4-46.3) fL RDW Coeff of Yadira (11.5-14.5) % Plt Count (130-400) K/uL MPV (7.4-10.4) fL VBG pH (7.36-7.41) VBG pCO2 (38-50) mmHg VBG pO2 mmHg VBG HCO3 mmol/L VBG O2 Saturation % VBG Base Excess mEq/L Barometric Pressure mm/Hg Sodium (136-145) mmol/L Potassium (3.5-5.1) mmol/L Chloride (98-107) mmol/L Carbon Dioxide (21-32) mmol/L Anion Gap (3-11) BUN (7-18) mg/dl Creatinine (0.6-1.4) mg/dl Est Cr Clr Drug Dosing ml/min Est GFR ( Amer) Est GFR (Non-Af Amer) BUN/Creatinine Ratio (10-20) Glucose (70-99) mg/dl POC Glucose 112 H (70-99) Lactate (0.4-2.0) mmol/L Calcium (8.5-10.1) mg/dl Phosphorus (2.5-4.9) mg/dl Magnesium (1.8-2.4) mg/dl Total Bilirubin (0.2-1) mg/dl AST (15-37) U/L ALT (12-78) U/L Alkaline Phosphatase (45-117) U/L Total Protein (6.4-8.2) gm/dl Albumin (3.4-5.0) gm/dl Globulin (2.5-4.0) gm/dl Albumin/Globulin Ratio (0.9-2) Cortisol AM Sample (4.3-22.4) mcg/dl PG Care Time/CCT Total # of Minutes Spent Total Time Spent with Patient: Total time spent is greater than 50% in coordination of care (as documented) at patient's floor/unit and/or counseling patient: (1) Depression Depression Type: unspecified Qualified Code(s): F32.9 - Major depressive disorder, single episode, unspecified
[2018-12-08] MEDS: MIRTAZAPINE TAB 15 MG TAB PO SCH (20:05)
[2018-12-08] MEDS ORDERED: SODIUM CHLORIDE 1 GM TABLET PO SCH (21:00)
[2018-12-09] MEDS: IBUPROFEN 200 MG TAB PO PRN ×3 (02:16→18:21)
[2018-12-09 06:24] LABS: Hemoglobin 14.2 g/dL (14.0-18.0); Mean Corpuscular Hemoglobin 33.4 pg (25-34); Mean Corpuscular Hgb Conc 37.4 g/dL (32-36); Mean Corpuscular Volume 89.4 fL (80-100); Mean Platelet Volume 9.4 fL (7.4-10.4); Platelet Count 182 K/uL (130-400); RDW Coefficient of Variation 11.7 % (11.5-14.5); RDW Standard Deviation 37.9 fL (36.4-46.3); Red Blood Count 4.25 M/uL (4.7-6.1); White Blood Count 6.49 K/uL (4.8-10.8)
[2018-12-09] MEDS: ACETAMINOPHEN 325 MG TAB PO PRN ×3 (06:53→19:03)
[2018-12-09] MEDS: LORazepam 1 MG TAB PO PRN ×3 (06:54→19:03)
[2018-12-09 06:56] LABS: Albumin Level 3.9 gm/dl (3.4-5.0); BUN Creatinine Ratio 8.5 (10-20); Creatinine Clr Calc Pharmacy 66.6 ml/min; Est GFR (African American) 91.4; Est GFR (Non-African American) 78.8; Magnesium 1.7 mg/dl (1.8-2.4); Potassium 3.3 mmol/L (3.5-5.1)
[2018-12-09 07:05] VITALS: O2SAT 98
[2018-12-09 07:12] LABS: Albumin Globulin Ratio 1.6 (0.9-2); Bilirubin,Total 0.7 mg/dl (0.2-1); Globulin 2.4 gm/dl (2.5-4.0); Phosphorus 2.6 mg/dl (2.5-4.9); Thyroid Stimulating Hormone 0.422 uIu/ml (0.300-4.500); Total Protein 6.3 gm/dl (6.4-8.2)
[2018-12-09] MEDS ORDERED: ASPIRIN 325 MG ECTAB PO ONE (07:21)
[2018-12-09] MEDS: TRAMADOL HCL 50 MG TABLET PO PRN ×2 (08:03→16:29)
[2018-12-09] MEDS: METHOCARBAMOL 500 MG TABLET PO SCH ×3 (08:05→20:22)
[2018-12-09] MEDS: ESCITALOPRAM OXALATE 10 MG TAB PO SCH (08:05)
[2018-12-09] MEDS: QUETIAPINE FUMARATE 25 MG TABLET PO SCH ×3 (08:05→20:22)
[2018-12-09] MEDS: GLUCOSE 10 TABS/TUBE PO SCH ×4 (08:05→20:17)
[2018-12-09] MEDS: DOCUSATE SODIUM 100 MG CAP PO SCH ×2 (08:05→20:19)
[2018-12-09] MEDS: lisinopriL 20 MG TAB PO SCH (08:06)
[2018-12-09] MEDS: MAGNESIUM CHLORIDE 64MG DELAYED REL TAB PO SCH ×3 (08:06→20:22)
[2018-12-09] MEDS: HEPARIN SOD 5,000 UNIT/0.5 ML VIAL SQ SCH ×2 (08:07→20:24)
--- NOTE | 2018-12-09 08:26 | Hospitalist Progress Note ---
Date of Service December 09, 2018 Assessment & Plan (1) CVA, old, speech/language deficit: * Presented after hitting his head on the wall in frustration due to language issues. Initially reported he did not want to go home and preferred placement. * On 12/01, he had no suicidal ideation, and he presently has no active suicidal intent; however, starting on 12/02 he began to refuse food, medications, labs, and blood sugar checks. He told previous attending that he wants to , however per discussion with patient recently, he was agreeable for lab draws and blood sugar checks, but was refusing any further interventions at this time. * Currently, he is refusing to treat hypoglycemia and IVs, but had been taking the rest of his scheduled medications as well as magnesium oral replacements. * Palliative on consult during admission- per Dr. Gregory, patient had not had significant decline in condition over past year * PT/OT- patient would benefit from SNF as patient requires much assistance with ADLs * [facility] for level II evaluation -- "not meet mental health criteria" * Discharge complicated initially by living situation/capacity following argument between patient and caregiver of 20 years, Don Vega.After contact with Don earlier this week, he stated he was on a drinking binge for the past three days and states that is the reason no one could get ahold of him. He stated "I think I'm done with that stuff now" with regards to the alcohol. He stated that he doesn't believe he would be able to take Mr. Gardner back at that time because he doesn't think that's what the patient wants either. However, as the week went on, patient and Don changed their minds and have reconciled. * --Evaluated by psych today- 1:1 discontinued. Deemed to have competency to decide to return home * --Don was in room during today's visit as well as phone call this morning. He states he as in contact with Vinicio from [facility] and suggested he call [facility] [facility] for additional services, as well as set up outpatient psych through [facility]. He states he will be available tomorrow after noon for transportation if needed. (2) RAVEN (acute kidney injury): * Creatinine on admission 1.71. After IV fluids, creatinine normalized to 0.83, however since then patient has refused IVFs * Creatinine improved from 1.21 to 1.07 -- continue to monitor * Potassium 3.3 today -- will provide 40 MEQ KCl, continue to monitor (3) Hypophosphatemia: * Improved * Patient was given oral phos replacement * Phos 2.6 today from 4.2 -- will resume oral replacement for now as patient not eating, but will repeat level in AM (4) Hypomagnesemia: * Patient with mag 1.6 on admission- replaced, with repeat 1.8. * Due to patient refusing IV, patient taking mag chloride 64mg PO BID currently * Mag continues to be low, but improved from 1.6 to 1.7 with change from BID to TID dosing * Repeat level in AM (5) Hypertension: * Stable * Lisinopril originally held due to RAVEN- was restarted on 12/04 * BP currently 139/89 * Started on 25mg metoprolol for HR as well as hx cardiomyopathy * Per Don, patient on metoprolol outpatient but unsure why/when it was discontinued (6) Depression: * Chronic depression regarding chronic debilitation * Continue home quetiapine, escitalopram * added on Remeron 7.5mg po qhs on 12/08 for depression and to increase appetit e, help with sleep--> already has stimulated appetite on 12/09 (7) Chronic pain: * Continue home tramadol - switched from Q6 to TID dosing, given history of seizure disorder * Continue home methocarbamol 500mg TID * Patient uses diclofenac topical at home for shoulder pain-- will order (8) Seizure disorder: * Per prior note, he had a witnessed seizure in 08/2018. He was discharged on Keppra that admission, but appears to no longer be on it. * Seizure precautions-- consider restarting Keppra if any concern for seizure * Continue tramadol at TID dosing, as done on last admission because tramadol can lower seizure threshold * no recent head imaging but given his unwillingness for testing and such, will not pursue at this time * Patient receiving Ativan during admission (9) Anxiety: * As above * Has been receiving ativan while inpatient- hx etoh abuse * Need to cut down on the benzo while here and would not recommend prescribing upon discharge (10) Cardiomyopathy: * Prior EF as low as 25% per documentation. * Last echo in 12/2017 showed EF 45-50%. * Continue lisinopril * Initiate metoprolol succinate 25mg * no diuretics needed at this time, is euvolemic (11) Hypoglycemia: * As above * Patient receiving glucose tabs QID as he was refusing to eat or take D5W IVFs -- most recent glucose 77 (12) Hyponatremia: * Sodium improved to 135 today * Continue to monitor (13) Acidosis: * Anion gap as high as 16.0 during admission -- ??starvation ketosis during that time * Bicarb as low as 12 on 12/05 * Bicarb normalized today to 21, Lactic 0.6, VBG with pH 7.31, pCO2 31, pO2 72, HCO3 18, O2 sat 94.2% * Cortisol wnl * Urine Osm 163, Urine Sodium 18, TSH 0.422 * BMP in AM (14) DVT prophylaxis: * Heparin 5000 units Q12h -- patient has been refusing heparin * SCDs Dispo: hopeful d/c tomorrow - Don available to transport after 12pm Supervising Physician Co-Signing Physician Notes PA Supervision Note: I did not personally see or examine the patient today, but I verified all mark points of BENNETT Laboy's assessment and plan with the following exceptions/additions: None Subjective Patient evaluated at bedside with caregiver Don present. Patient pleasant, cooperative and states he continues to wish to be discharged home with Don. Both patient and Don are anxious to get the patient home as long as case management and discharge plans are set up with hopes of getting additional waiver care for additional caregiver to give Don a break for some time. He states he feels ready for discharge. Review of Systems Review of Systems: language barrier due to CVA- communication with minimal verbiage and white board He denies chest pain, shortness of breath, abdominal pain, n/v/d, fevers, chills at this time. Constitutional: + anorexia; no fever and no chills Eyes: no diplopia and no eye pain Ear, Nose, Mouth, Throat: no dizziness and no dysphagia Respiratory: no cough and no dyspnea Cardiovascular: no chest pain and no edema Gastrointestinal: no bowel movement Musculoskeletal: left shoulder pain- "always" Neurologic: no syncope and no headache(s) Psychiatric: + anxiety Physical Exam Constitutional: + thin, + physical limitations, + frail appearing and + underweight Eyes: PERRL, conjunctivae normal, anicteric sclerae ENMT: Ears: + hearing impairment Neck: trachea midline, no thyromegaly Respiratory: normal respiratory effort, lungs clear to auscultation Cardiovascular: Rate/Rhythm: regular rate and regular rhythm Heart Sounds: no cardiac rub Extremities: + edema (1+ b/l LE) Gastrointestinal (Abdomen): normal bowel sounds, soft, nontender, no hepatosplenomegaly Musculoskeletal: no cyanosis or clubbing, extremities motor strength 5/5 Skin: no rashes, warm and dry no rashes Neurologic: right sided hemiparesis + expressive aphasia and + receptive aphasia Psychiatric: Orientation: alert and oriented x 3 Results & Data Vital Signs (Past 12 Hours) Vital Signs Temp Pulse Resp BP Pulse Ox 12/09/18 07:04 92 H 18 173/91 H 98 12/08/18 23:39 36.7 C 101 H 16 165/77 H 96 Laboratory Results 12/09/18 12/09/18 12/08/18 Range/Units 06:14 06:14 23:49 WBC 6.49 (4.8-10.8) K/uL RBC 4.25 L (4.7-6.1) M/uL Hgb 14.2 (14.0-18.0) g/dL Hct 38.0 L (42-52) % MCV 89.4 (80-100) fL MCH 33.4 (25-34) pg MCHC 37.4 H (32-36) g/dL RDW Std Deviation 37.9 (36.4-46.3) fL RDW Coeff of Yadira 11.7 (11.5-14.5) % Plt Count 182 (130-400) K/uL MPV 9.4 (7.4-10.4) fL Sodium 135 L (136-145) mmol/L Potassium 3.3 L (3.5-5.1) mmol/L Chloride 103 (98-107) mmol/L Carbon Dioxide 22 (21-32) mmol/L Anion Gap 10.0 (3-11) BUN 9 (7-18) mg/dl Creatinine 1.07 (0.6-1.4) mg/dl Est Cr Clr Drug Dosing 66.6 ml/min Est GFR ( Amer) 91.4 Est GFR (Non-Af Amer) 78.8 BUN/Creatinine Ratio 8.5 L (10-20) Glucose 77 (70-99) mg/dl Calcium 9.0 (8.5-10.1) mg/dl Phosphorus 2.6 D (2.5-4.9) mg/dl Magnesium 1.7 L (1.8-2.4) mg/dl Total Bilirubin 0.7 (0.2-1) mg/dl AST 12 L (15-37) U/L ALT 12 (12-78) U/L Alkaline Phosphatase 58 (45-117) U/L Total Protein 6.3 L (6.4-8.2) gm/dl Albumin 3.9 (3.4-5.0) gm/dl Globulin 2.4 L (2.5-4.0) gm/dl Albumin/Globulin Ratio 1.6 (0.9-2) TSH 0.422 (0.300-4.500) uIu/ml Cortisol AM Sample (4.3-22.4) mcg/dl Urine Osmolality 163 L (500-800) mOsm/kg Ur Random Sodium mmol/L 12/08/18 12/08/18 Range/Units 23:49 07:10 WBC (4.8-10.8) K/uL RBC (4.7-6.1) M/uL Hgb (14.0-18.0) g/dL Hct (42-52) % MCV (80-100) fL MCH (25-34) pg MCHC (32-36) g/dL RDW Std Deviation (36.4-46.3) fL RDW Coeff of Yadira (11.5-14.5) % Plt Count (130-400) K/uL MPV (7.4-10.4) fL Sodium (136-145) mmol/L Potassium (3.5-5.1) mmol/L Chloride (98-107) mmol/L Carbon Dioxide (21-32) mmol/L Anion Gap (3-11) BUN (7-18) mg/dl Creatinine (0.6-1.4) mg/dl Est Cr Clr Drug Dosing ml/min Est GFR ( Amer) Est GFR (Non-Af Amer) BUN/Creatinine Ratio (10-20) Glucose (70-99) mg/dl Calcium (8.5-10.1) mg/dl Phosphorus (2.5-4.9) mg/dl Magnesium (1.8-2.4) mg/dl Total Bilirubin (0.2-1) mg/dl AST (15-37) U/L ALT (12-78) U/L Alkaline Phosphatase (45-117) U/L Total Protein (6.4-8.2) gm/dl Albumin (3.4-5.0) gm/dl Globulin (2.5-4.0) gm/dl Albumin/Globulin Ratio (0.9-2) TSH (0.300-4.500) uIu/ml Cortisol AM Sample 14.14 (4.3-22.4) mcg/dl Urine Osmolality (500-800) mOsm/kg Ur Random Sodium 18 mmol/L PG Care Time/CCT Total # of Minutes Spent Total Time Spent with Patient: Total time spent is greater than 50% in c oordination of care (as documented) at patient's floor/unit and/or counseling patient: (1) Depression Depression Type: unspecified Qualified Code(s): F32.9 - Major depressive disorder, single episode, unspecified
--- NOTE | 2018-12-09 12:05 | Psychiatric Progress Note ---
Date of Service December 09, 2018 Impression / Recommendations Impression Patient known to oure service from prior psychiatric consultations. He continues to deny suicidality and has not evidenced further self injury. I suggest it would be appropriate to discontinue the one-to-one observation at this time. To help reduce risk for future frustration intolerance, direct therapeutic interventions should ideally be undertaken slowly and with explanation. Expressive aphasia can be extremely frustrating for an individual unable to communicate effectively and allow adequate time for him to make himself understood he is likely to reduce risk for future anger and frustration. Obviously in a clinical setting there are time constraints that can pose barriers to this type of approach however taking only a few seconds to at least validate his frustration may also be an effective strategy in reducing risk of progressing to anger and impulsive/demonstrative behaviors. Presently the patient appears to retain his capacity to decide to return to his home setting as above. Risk Factors Assessment Do You Have Access To A Gun?: No Interval History Chief Complaint Capacity reassessment requested addressing patient's ability to choose disposition. Review of Systems Notes Denies suicidal or homicidal ideation Subjective Subjective Question has been asked does this patient have the capacity to decide to return to his home environment. Concerned that discord between he and technician preventative medicine has precipitated frustration and agitation at times in the past seems to be a recurrent pattern. 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 In reviewing prior medical records from current hospitalization it has been appreciated that the patient likely retains his capacity to understand risks associated with treatment decisions as noted on 12/04/[address] Owens. On psychiatric interview this morning. On psychiatric interview this morning patient demonstrates understanding of positional circumstances, can appreciate how the circumstances apply to him, he can reasonably demonstrate reasoning in considering risks and benefits of returning home versus discharge to a alf position, and can express a choice and affirms repeatedly that he wants to return to the home setting with his technician preventative medicine/POA. He denies feeling depressed or suicidal. He actually indicates feeling more hopeful and is pleased that his technician preventative medicine seems to be demonstrating improved understanding regarding triggers for frustration. Physical Exam Psychiatric Orientation: cooperative Apperance: + disheveled Eye Contact: + fair eye contact Motor Behavior: no psychomotor agitation (However he is animated) Speech is dysarthric Affect: no depressed affect, no anxious affect and no angry affect Good Thought process appears fairly concrete but superficially logical and responds to direct questions. At times he struggles to make himself understood due to his aphasia Suicidal Thoughts: + reports suicidal thoughts Homicidal Thoughts: + reports homicidal thoughts No outward evidence of response to internal stimulation Insight: + fair insight Judgement: + fair judgement Vital Signs (Past 24 Hours) Last Vital Signs Temp 36.7 C 12/08/18 23:39 Pulse 92 H 12/09/18 07:04 Resp 18 12/09/18 07:04 BP 158/84 H 12/09/18 08:27 Pulse Ox 98 12/09/18 07:04 Results & Data Laboratory Results Laboratory Results - last 24 hr 12/08/18 12/08/18 12/09/18 23:49 23:49 06:14 WBC RBC Hgb Hct MCV MCH MCHC RDW Std Deviation RDW Coeff of Yadira Plt Count MPV Sodium 135 L Potassium 3.3 L Chloride 103 Carbon Dioxide 22 Anion Gap 10.0 BUN 9 Creatinine 1.07 Est Cr Clr Drug Dosing 66.6 Est GFR ( Amer) 91.4 Est GFR (Non-Af Amer) 78.8 BUN/Creatinine Ratio 8.5 L Glucose 77 POC Glucose Calcium 9.0 Phosphorus 2.6 D Magnesium 1.7 L Total Bilirubin 0.7 AST 12 L ALT 12 Alkaline Phosphatase 58 Total Protein 6.3 L Albumin 3.9 Globulin 2.4 L Albumin/Globulin Ratio 1.6 TSH 0.422 Urine Osmolality 163 L Ur Random Sodium 18 12/09/18 12/09/18 06:14 11:34 WBC 6.49 RBC 4.25 L Hgb 14.2 Hct 38.0 L MCV 89.4 MCH 33.4 MCHC 37.4 H RDW Std Deviation 37.9 RDW Coeff of Yadira 11.7 Plt Count 182 MPV 9.4 Sodium Potassium Chloride Carbon Dioxide Anion Gap BUN Creatinine Est Cr Clr Drug Dosing Est GFR ( Amer) Est GFR (Non-Af Amer) BUN/Creatinine Ratio Glucose POC Glucose 85 Calcium Phosphorus Magnesium Total Bilirubin AST ALT Alkaline Phosphatase Total Protein Albumin Globulin Albumin/Globulin Ratio TSH Urine Osmolality Ur Random Sodium Current Inpatient Medications Current Inpatient Medications: Current Inpatient Medications Acetaminophen (Tylenol) 650 mg PO Q4H PRN PRN Reason: pain/fever Stop: 12/30/18 13:18 Last Admin: 12/09/18 06:53 Dose: 650 mg Documented by: Al Hydrox/Mg Hydrox/Simethicone (Maalox) 30 ml PO Q6H PRN PRN Reason: Dyspepsia Stop: 12/30/18 13:18 Docusate Sodium (Colace) 100 mg PO BID [facility] Stop: 12/31/18 20:59 Last Admin: 12/09/18 08:05 Dose: 100 mg Documented by: Escitalopram Oxalate (Lexapro Tab) 5 mg PO DAILY [facility] Stop: 12/31/18 08:59 Last Admin: 12/09/18 08:05 Dose: 5 mg Documented by: Glucose (Dex4 Glucose) 2 tabs PO QID [facility] Stop: 01/03/19 16:59 Last Admin: 12/09/18 08:05 Dose: 2 tabs Documented by: Heparin Sodium (Porcine) (Heparin Sodium (Porcine)) 5,000 units SQ Q12H [facility] Stop: 12/31/18 20:59 Last Admin: 12/09/18 08:07 Dose: Not Given Documented by: Ibuprofen (Advil) 400 mg PO TID PRN PRN Reason: Pain Stop: 12/31/18 17:34 Last Admin: 12/09/18 10:22 Dose: 400 mg Documented by: [facility]) [facility] Stop: 01/01/19 08:59 Last Admin: 12/09/18 08:06 Dose: 20 mg Documented by: Lorazepam (Ativan) 1 mg PO Q4H PRN PRN Reason: Anxiety Stop: 01/02/19 00:44 Last Admin: 12/09/18 06:54 Dose: 1 mg Documented by: Magnesium Chloride (Slow-Mag) 64 mg PO TID [facility] Stop: 01/07/19 13:59 Last Admin: 12/09/18 08:06 Dose: 64 mg Documented by: Magnesium Hydroxide (Milk Of Magnesia) 30 ml PO Q6H PRN PRN Reason: Constipation Stop: 12/30/18 13:18 Methocarbamol (Robaxin) 500 mg PO TID [facility] Stop: 12/30/18 13:59 Last Admin: 12/09/18 08:05 Dose: 500 mg Documented by: Metoprolol Succinate (Toprol Xl) 25 mg PO QAM [facility] Stop: 11/26/19 10:59 Mirtazapine (Remeron) 7.5 mg PO HS [facility] Stop: 01/07/19 20:59 Last Admin: 12/08/18 20:05 Dose: 7.5 mg Documented by: Polyethylene Glycol (Miralax Powder Packet) 17 gm PO DAILY PRN PRN Reason: Constipation Stop: 12/30/18 13:18 Potassium Phosphate (Phospha 250 Neutral [id number] Mg) 2 tab PO QID [facility] Stop: 01/05/19 16:59 Last Admin: 12/08/18 14:29 Dose: Not Given Documented by: Quetiapine Fumarate (Seroquel) 12.5 mg PO TID@0800,1500,2100 [facility] Stop: 12/30/18 14:59 Last Admin: 12/09/18 08:05 Dose: 12.5 mg Documented by: Tramadol HCl (Ultram) 50 mg PO TID PRN PRN Reason: Pain Stop: 12/30/18 13:18 Last Admin: 12/09/18 08:03 Dose: 50 mg Documented by:
[2018-12-09] MEDS: METOPROLOL SUCC 25MG EXT REL TAB PO SCH (13:22)
[2018-12-09] MEDS ORDERED: DICLOFENAC SOD 1% GEL 100 GM TUBE EXT PRN (13:40)
[2018-12-09] MEDS ORDERED: POTASSIUM CHLORIDE 20 MEQ TABCR PO ONE (16:08)
[2018-12-09] MEDS: POT PHOSPHATE MONOBASIC W/ SOD TAB PO SCH ×2 (16:29→20:19)
[2018-12-09] MEDS: MIRTAZAPINE TAB 15 MG TAB PO SCH (20:21)
[2018-12-10] MEDS: ACETAMINOPHEN 325 MG TAB PO PRN (00:57)
[2018-12-10] MEDS: TRAMADOL HCL 50 MG TABLET PO PRN (00:58)
[2018-12-10] MEDS: LORazepam 1 MG TAB PO PRN ×2 (00:59→08:59)
[2018-12-10] MEDS: IBUPROFEN 200 MG TAB PO PRN (02:15)
[2018-12-10 07:39] VITALS: BP 162/89; TEMP 98.2
[2018-12-10] MEDS: ESCITALOPRAM OXALATE 10 MG TAB PO SCH (08:52)
[2018-12-10] MEDS: DOCUSATE SODIUM 100 MG CAP PO SCH (08:52)
[2018-12-10] MEDS: lisinopriL 20 MG TAB PO SCH (08:52)
[2018-12-10] MEDS: POT PHOSPHATE MONOBASIC W/ SOD TAB PO SCH ×2 (08:53→14:13)
[2018-12-10] MEDS: MAGNESIUM CHLORIDE 64MG DELAYED REL TAB PO SCH ×2 (08:54→14:14)
[2018-12-10] MEDS: METOPROLOL SUCC 25MG EXT REL TAB PO SCH (08:54)
[2018-12-10] MEDS: QUETIAPINE FUMARATE 25 MG TABLET PO SCH (08:55)
[2018-12-10] MEDS: METHOCARBAMOL 500 MG TABLET PO SCH ×2 (08:55→14:14)
[2018-12-10] MEDS: GLUCOSE 10 TABS/TUBE PO SCH ×2 (08:56→14:13)
[2018-12-10] MEDS: HEPARIN SOD 5,000 UNIT/0.5 ML VIAL SQ SCH (09:03)
[2018-12-10 09:49] LABS: BUN Creatinine Ratio 8.8 (10-20); Calcium 9.1 mg/dl (8.5-10.1); Creatinine Clr Calc Pharmacy 64.2 ml/min; Est GFR (African American) 87.4; Est GFR (Non-African American) 75.4; Magnesium 1.8 mg/dl (1.8-2.4)
[2018-12-10] MEDS ORDERED: bisacodyL 10 MG SUPP PR ONE (13:15)
--- NOTE | 2018-12-10 14:06 | Discharge Summary ---
Date of Service December 10, 2018 Admission HPI Per Admitting Provider The patient is a 52 year old male who presents to the ED for a mental health evaluation. Per nurse geriatric case manager, the patients partner called in and said the patient was banging his head against the wall and making gestures of cutting his throat. Per nurse geriatric case manager, the patient gets frustrated because he cannot communicate well secondary to history of stroke. The patient admits to banging his head on the wall, but states that he did it because he was frustrated, not because he was trying to hurt himself. The patient denies making gestures of cutting his throat. The patient states that he is okay and not suicidal or homicidal. The patient states that he has struggled with depression in the past, but states that he has not felt depressed recently. The patient notes that he has not tried to hurt himself in 2 years. The patient denies receiving any treatments prior to arrival. The patient does not want to return home with his partner. Case management was consulted. The patient will be admitted to the medical floor. The blood work done in the ER shows that patient has acute renal failure and dehydration, hypomagnesemia & leukocytosis. Principal Diagnosis Depression, RAVEN Discharge Exam Constitutional WD/WN, vitals as above Respiratory normal respiratory effort, lungs clear to auscultation Cardiovascular RRR, no murmur, no edema Gastrointestinal (Abdomen) Inspection/Auscultation: abdomen normal to inspection and normal bowel sounds; abdomen not distended Percussion/Palpation: abdomen soft; abdomen nontender Musculoskeletal generalized weakness Skin no rashes, warm and dry Neurologic moves all extremities and awake baseline aphasia, dysarthria, hemiparesis Psychiatric Orientation: alert and oriented x 3 Affect: + irritable affect Discharge Data Allergies Allergy/AdvReac Type Severity Reaction Status Date / Time codeine Allergy Mild HIVES Verified 11/30/18 05:16 Consultations 11/30/18 08:09 ED Decision to Admit Stat 11/30/18 13:19 Consult Psychiatry Routine 11/30/18 13:51 Consult Behavioral Health Liaison Routine 12/01/18 15:09 Consult Case Management - Discharge Planning Routine 12/02/18 10:41 Consult Palliative Care Routine Ordered Studies 11/30/18 00:58 US renal/blad retro comp Stat Hospital Course (1) CVA, old, speech/language deficit: * Presented after hitting his head on the wall in frustration due to language issues. Initially reported he did not want to go home and preferred placement. * On 12/01, he had no suicidal ideation, and he presently has no active suicidal intent; however, starting on 12/02 he began to refuse food, medications, labs, and blood sugar checks. He told previous attending that he wants to , however per discussion with patient recently, he was agreeable for lab draws and blood sugar checks, but was refusing any further interventions at this time. * Palliative on consult during admission- per Dr. Gregory, patient had not had significant decline in condition over past year * OOA for level II evaluation -- "not meet mental health criteria" * Discharge complicated initially by living situation/capacity following argument between patient and caregiver of 20 years, Don Vega.After contact with Don earlier this week, he stated he was on a drinking binge for the past three days and states that is the reason no one could get ahold of him. He stated "I think I'm done with that stuff now" with regards to the alcohol. He stated that he didnt't believe he would be able to take Mr. Gardner back at that time. However, as the week went on, patient and Don changed their minds and have reconciled. Case management involved Protective Services who will not intervene further and will refer his case to his home visit field care manager who will also assist with waiver services. Office of Aging is involved as well and have been in contact with patient's program counselor Don. They are recommending he be set up with [facility] outpatient and to get in touch with [facility] [place] for Independent living for additional services. * Evaluated by psych. Deemed to have competency to decide to return home (2) RAVEN (acute kidney injury): resolved with IVF (3) Hypophosphatemia: * Improved * Patient was given oral phos replacement - phos improving, will continue phos replacement for another week as patient's po intake is improving (4) Hypomagnesemia: * Patient with mag 1.6 on admission- replaced, with repeat 1.8. * resolved - continue po mag at TID dosing (5) Hypertension: * Stable * Lisinopril originally held due to RAVEN- was restarted on 10/22 * Started on 25mg metoprolol for HR as well as hx cardiomyopathy * Per Don, patient on metoprolol outpatient but unsure why/when it was discontinued (6) Depression: * Chronic depression regarding chronic debilitation * Continue home quetiapine, escitalopram * added on Remeron 7.5mg po qhs on 12/08 for depression and to increase appetit e, help with sleep--> already has stimulated appetite on 12/09, does not appear to be experiencing excessive sleepiness * QT wnl on EKG 12/09 (7) Chronic pain: * Continue home tramadol - switched from Q6 to TID dosing, given history of seizure disorder * Continue home methocarbamol 500mg TID * Patient uses diclofenac topical at home for shoulder pain (8) Seizure disorder: * Per prior note, he had a witnessed seizure in 08/2018. He was discharged on Keppra that admission, but appears to no longer be on it. * Seizure precautions-- consider restarting Keppra if any concern for seizure * Continue tramadol at TID dosing, as done on last admission because tramadol can lower seizure threshold * no recent head imaging but given his unwillingness for testing and such, will not pursue at this time * Patient receiving Ativan during admission (9) Anxiety: * As above * Has been receiving ativan while inpatient- hx etoh abuse * Would not recommend prescribing upon discharge (10) Cardiomyopathy: * Prior EF as low as 25% per documentation. * Last echo in 12/2017 showed EF 45-50%. * Continue lisinopril * Initiated metoprolol succinate 25mg * no diuretics needed at this time, is euvolemic (11) Hypoglycemia: * As above * Patient receiving glucose tabs QID as he was refusing to eat or take D5W IVFs -- now with normalizing bsg * discontinue glucose (12) Hyponatremia: * Sodium improved to 134 * Continue to monitor (13) Acidosis: * Anion gap as high as 16.0 during admission -- ??starvation ketosis during that time * Bicarb as low as 12 on 12/05 * Bicarb, lactic acid normalized * Cortisol wnl * Urine Osm 163, Urine Sodium 18, TSH 0.422 (14) DVT prophylaxis: * Heparin 5000 units Q12h -- patient has been refusing heparin * SCDs Dispo: home with program counselor Don. Nurse Navigator left message for [facility] to organize psych care. Has office of aging and home visit field care manager. Protective Services has signed off Total Time Total Time Spent Total Time Spent (In Minutes): greater than 30 minutes Discharge Plan Discharge Items Patient Disposition: Home - Home Health Services Reason For Visit: CHRONIC PAIN, ANXIETY, ARF Discharge Diagnosis: Chronic pain, anxiety, ARF Condition on Discharge: Good Activity: Resume your previous activity Non-emergency contact: Primary Care Provider Call non-emergency contact if: you have any medication questions, your symptoms worsen and your pain is not controlled Follow-up/Referrals: [facility] [Other] - 12/28/18 8:20 am (Please, follow up at [facility], for counseling and mental health services, with Glenys Sam PA-C on MondayDecember 28 at 8:20 am. *The office is located at [address] [place] [address] in [place]. If you need to cancel/change this appoinement, call the office at [phone].) Ashia Thomas MD [Primary Care Provider] - 12/14/18 2:30 pm (Please, follow up with Dr. Thomas on MondayDecember 14 at 2:30 pm. *If you need to change this appointment, call the office at [phone].) Diet: Regular Addtl Attending Provider Instructions: Please follow up with your primary care provider within about a week. Please continue to follow with the Office of Aging and your home visit field care manager. Your home visit field care manager is now Dick Eric - [phone] ext [phone]. He can help you set up waiver services. Because you were not eating much your magnesium and phosphorous were low. I have continued your phosphorous for another week. Your magnesium has been prescribed for a month but you can discuss discontinuing this with your primary care provider if your appetite is improving. You were also prescribed mirtazapine to help you increase your appetite. You should let your doctor know if you feel it is causing excessive sedation as it can make people sleepy. I have attached information on this medication You were on metoprolol in the past and it has been restarted to help control your blood pressure. Your tramadol has been reduced as it can have an adverse effect of lowering the seizure threshold. Pending Studies at Discharge: No Stand-Alone Forms: My [facility], Smoking Cessation Medications and DC Order Prescriptions: New metoprolol succinate 25 mg Tablet Extended Release 24 Hr 25 mg PO QAM Qty: 30 RF: 0 mirtazapine 15 mg Tablet 7.5 mg PO HS Qty: 30 RF: 0 Phospha 250 Neutral 250 mg Tablet 2 tab PO QID Qty: 21 RF: 0 magnesium chloride [Mag 64] 64 mg Tablet,Delayed Release (Dr/Ec) 64 mg PO TID Qty: 90 RF: 0 Continued escitalopram oxalate 5 mg tablet 5 mg PO DAILY Qty: 30 RF: 5 quetiapine [Seroquel] 25 mg tablet 25 mg PO DIRECTED RF: 0 lisinopril 20 mg tablet 20 mg PO DAILY RF: 0 methocarbamol 500 mg Tablet 500 mg PO TID RF: 0 Changed tramadol 50 mg tablet 50 mg PO TID PRN (Reason: Pain) Qty: 0 RF: 0 Discharge Orders: Discharge Order (Routine); Ordered 12/10/18 Ordered By: Maria Alejandra Rodriguez/Other Patient Handouts: Mirtazapine Oral tablet Admission Data Admit Date/Time: 11/30/18 10:38 Attending Provider: Rodger Goldsmith Admit Provider: Luis Miguel Hanna Primary Care Provider: Ashia Thomas Other Providers: Richard Servin ; Nicolas Thomas ; Joseluis,Miriam ; [place], Other Interventions: Discharge Summary Assessment (RN) Last Done: 12/10/18 15:50 Supervising Physician Co-Signing Physician Notes PA Supervision Note: I have seen and examined patient with SHYAM Abarca and agree with her assessment and plan and discharge summary.
[2018-12-10 15:52] VITALS: PULSE 96
== END 2018-12-10 16:30 | disposition home or self-care (01) | DRG 683 ==
LOC: ED 21:34 → 2W 11-30 10:38 → SUATTDRO 11-30 10:38 → 2W 11-30 12:30

== ENCOUNTER 2019-03-15 03:06 | Inpatient (IN) ==
--- NOTE | 2019-03-15 03:42 | Emergency Department Note ---
History of Present Illness General Chief complaint: Seizure Stated complaint: seizure Time Seen by Provider: 03/15/19 03:12 History of Present Illness Maximum Pain Intensity: 8 This is a 53-year-old male presenting to the emergency department for evaluation of seizure that occurred approximately 1 hour ago at home. The patient has a past history of CVA, seizures, and difficulty speaking. His roommate is here with him and is the primary historian. Evidently the patient was at home seated in his wheelchair, when he began to have his seizure. The patient slid down from the wheelchair onto the ground, and seems to have injured his right arm. The patient is prescribed Keppra but does not take this medication. Additionally he does take tramadol for chronic pain. The patient has not had recent fever or flulike symptoms. He does not seem to have significant head, neck, or chest pain. His discomfort is currently rated an 8/10, primarily in the right arm, that does worsen with movement. 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% " On 08/13/12 05:02 J Luis Torres wrote "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% " Cervical radiculopathy at C7 (Chronic) Change in mental status (Resolved) Hemiparesis (Resolved Unknown) "right hemiparesis " On 08/13/12 00:17 Ham Jacobs wrote "right hemiparesis " Hemorrhagic shock (Resolved) Hyperammonemia (Resolved) Hyperkalemia (Resolved) Hypomagnesemia (Resolved) Hyponatremia (Resolved Unknown) Hypoxia (Resolved 02/22/14) Ischemic stroke (Chronic Unknown) "left MCA received TPA echo- LV mural thrombus residual right hemiparesis + aphasia " Left shoulder pain (Resolved) Leg fracture, right (Resolved) Metabolic encephalopathy (Resolved 03/21/14) Seizure (Resolved) Sepsis (Unknown) Shoulder pain (Resolved) Status epilepticus, 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) Suicide attempt (Chronic Unknown) Family History Father No pertinent family history Social History Preferred Language: Tristanian Communication Ability: Impaired Combination Man Required: No Beliefs That Will Affect Care: None marital status: Single Current Living Situation: Significant Other Current Living Situation Comment: Júnior Vega ([facility]) Other Information That Helps Us Care for You: No Feels Safe at Home: Yes Safety Concerns: Feels Safe At This Time Smoking Status: Never smoker Cigarettes Per Day: 2 ; Second Hand Exposure: No ; Hx Alcohol Use: No Hx Substance Use: No Review of Systems A total of 10 systems reviewed and were otherwise negative Physical Exam Vital Signs Vital Signs - 24 hr 03/15/19 04:30 03/15/19 05:00 03/15/19 05:30 Pulse Rate 78 74 73 Pulse Rate from SpO2 Sensor 78 74 73 Respiratory Rate 16 19 23 Blood Pressure 171/100 H 168/100 H 170/99 H Blood Pressure Mean 119 112 120 Pulse Oximetry 91 92 93 VITALS: Vitals are noted on the nurse's note and reviewed by myself. Vital signs stable. GENERAL: Chronically ill-appearing white male who appears in no acute distress. Exam is consistent with post-stroke findings HEAD: Normocephalic atraumatic. EARS: External ear normal. External auditory canals clear, tympanic membranes pearly rodriguez without erythema or effusion bilaterally. EYES: Pupils equal round and reactive to light and accommodation. Conjunctivae without injection, sclerae without icterus. Extraocular movements intact. NOSE: Patent, turbinates without inflammation or discharge. MOUTH: Mucous membranes moist. Tonsils are not enlarged. Pharynx without erythema, blood, or exudate. Uvula midline. Airway patent. NECK: Cervical spine is nontender. HEART: Regular rate and rhythm without murmurs gallops or rubs. LUNGS: Clear to auscultation bilaterally without wheezes, rales or rhonchi. No retractions or accessory muscle use. ABDOMEN: Positive normal bowel sounds x 4. . MUSCULOSKELETAL: Tenderness of the mid and proximal right arm is noted. No clavicular tenderness. Neurovascular status appears intact distally. No bleeding. NEURO: Patient was alert to person Course Administered Medications Enoxaparin Sodium (Lovenox) 40 mg SQ Q24H [facility] Stop: 04/14/19 08:59 Last Admin: 03/15/19 10:26 Dose: 40 mg Documented by: [id number] Gabapentin (Neurontin) 300 mg PO BID [facility] Stop: 04/14/19 20:59 Last Admin: 03/15/19 21:39 Dose: 300 mg Documented by: [id number] Hydralazine HCl (Hydralazine Hcl) 10 mg IV Q8H PRN PRN Reason: SBP>180 or DBP>110 Stop: 04/14/19 20:05 Last Admin: 03/15/19 20:48 Dose: 10 mg Documented by: [id number] Hydromorphone HCl (Dilaudid) 0.5 mg IV Q3H PRN PRN Reason: Severe Pain Stop: 03/29/19 08:13 Last Admin: 03/15/19 21:36 Dose: 0.5 mg Documented by: [id number] [facility] Stop: 04/14/19 17:14 Last Admin: 03/15/19 19:31 Dose: 20 mg Documented by: [id number] Ondansetron HCl (Zofran) 4 mg IV Q6H PRN PRN Reason: nausea or vomiting Stop: 04/14/19 08:13 Last Admin: 03/16/19 03:17 Dose: 4 mg Documented by: [id number] Admin: 03/15/19 21:35 Dose: 4 mg Documented by: [id number] Pantoprazole Sodium (Protonix) 40 mg PO QAM [facility] [place] Stop: 04/14/19 08:59 Last Admin: 03/15/19 10:27 Dose: 40 mg Documented by: [id number] Discontinued Medications Levetiracetam 1,000 mg/ (Dextrose) 110 mls @ 440 mls/hr IV NOW [facility] Stop: 03/15/19 03:37 Last Infusion: 03/15/19 04:25 Dose: 0 mls/hr Documented by: [id number] Admin: 03/15/19 04:09 Dose: 440 mls/hr Documented by: [id number] Potassium Chloride (K Cal / Wtr) 10 meq in 100 mls @ 100 mls/hr IV Q1H STA Stop: 03/15/19 06:55 Last Infusion: 03/15/19 08:14 Dose: 0 mls/hr Documented by: [id number] Admin: 03/15/19 06:15 Dose: 100 mls/hr Documented by: [id number] Sodium Chloride (1/2 Nss) 1,000 mls @ 75 mls/hr IV .[id number] Stop: 04/14/19 08:13 Last Infusion: 03/15/19 20:20 Dose: 0 mls/hr Documented by: [id number] Infusion: 03/15/19 19:55 Dose: 75 mls/hr Documented by: [id number] Infusion: 03/15/19 17:23 Dose: 0 mls/hr Documented by: [id number] Admin: 03/15/19 09:41 Dose: 75 mls/hr Documented by: [id number] Valproic Acid 650 mg/ Dextrose 56.5 mls @ 55 mls/hr IV 1700 ONE Stop: 03/15/19 18:01 Last Infusion: 03/15/19 21:18 Dose: 0 mls/hr Documented by: [id number] Infusion: 03/15/19 19:55 Dose: 55 mls/hr Documented by: [id number] Infusion: 03/15/19 19:07 Dose: 0 mls/hr Documented by: [id number] Admin: 03/15/19 19:07 Dose: 55 mls/hr Documented by: [id number] Levetiracetam (Keppra) 500 mg PO Q12H DEZ Stop: 04/14/19 08:59 Last Admin: 03/15/19 10:27 Dose: 500 mg Documented by: [id number] Medical Decision Making Differential Diagnosis Differential includes seizure, acute coronary syndrome, myocardial infarction, CVA, TIA, anemia, infection, pneumonia, UTI, pyelonephritis, poor nutrition, dehydration, electrolyte disturbance,hypoglycemia. Laboratory Data Result diagrams: 03/15/19 03:38 03/15/19 03:38 Lab Results 03/15/19 03/15/19 03/15/19 Range/Units 03:38 03:38 03:38 WBC 11.89 H (4.8-10.8) K/uL RBC 4.85 (4.7-6.1) M/uL Hgb 16.0 (14.0-18.0) g/dL Hct 44.0 (42-52) % MCV 90.7 (80-100) fL MCH 33.0 (25-34) pg MCHC 36.4 H (32-36) g/dL RDW Std Deviation 39.5 (36.4-46.3) fL RDW Coeff of Yadira 11.8 (11.5-14.5) % Plt Count 192 (130-400) K/uL MPV 10.0 (7.4-10.4) fL Immature Gran % (Auto) 0.3 % Neut % (Auto) 72.1 % Lymph % (Auto) 17.9 % [place] % (Auto) 8.2 % Eos % (Auto) 1.3 % Baso % (Auto) 0.2 % Immature Gran # (Auto) 0.03 H (0.00-0.02) K/uL Neut # (Auto) 8.58 H (1.4-6.5) K/uL Lymph # (Auto) 2.13 (1.2-3.4) K/uL [place] # (Auto) 0.98 H (0.11-0.59) K/uL Eos # (Auto) 0.15 (0-0.5) K/uL Baso # (Auto) 0.02 (0-0.2) K/uL Sodium 137 (136-145) mmol/L Potassium 3.0 L (3.5-5.1) mmol/L Chloride 103 (98-107) mmol/L Carbon Dioxide 25 (21-32) mmol/L Anion Gap 9.0 (3-11) BUN 9 (7-18) mg/dl Creatinine 1.27 (0.6-1.4) mg/dl Est Cr Clr Drug Dosing 61.1 ml/min Est GFR ( Amer) 73.7 Est GFR (Non-Af Amer) 63.6 BUN/Creatinine Ratio 6.8 L (10-20) Glucose 201 H (70-99) mg/dl Calcium 9.2 (8.5-10.1) mg/dl Phosphorus (2.5-4.9) mg/dl Magnesium 1.9 (1.8-2.4) mg/dl Total Bilirubin 0.8 (0.2-1) mg/dl AST 21 (15-37) U/L ALT 21 (12-78) U/L Alkaline Phosphatase 88 (45-117) U/L Troponin I < 0.015 (0-0.045) ng/ml Total Protein 7.3 (6.4-8.2) gm/dl Albumin 4.5 (3.4-5.0) gm/dl Globulin 2.8 (2.5-4.0) gm/dl Albumin/Globulin Ratio 1.6 (0.9-2) Ethyl Alcohol mg/dL < 3.0 (0-3) mg/dl 03/15/19 Range/Units 03:38 WBC (4.8-10.8) K/uL RBC (4.7-6.1) M/uL Hgb (14.0-18.0) g/dL Hct (42-52) % MCV (80-100) fL MCH (25-34) pg MCHC (32-36) g/dL RDW Std Deviation (36.4-46.3) fL RDW Coeff of Yadira (11.5-14.5) % Plt Count (130-400) K/uL MPV (7.4-10.4) fL Immature Gran % (Auto) % Neut % (Auto) % Lymph % (Auto) % [place] % (Auto) % Eos % (Auto) % Baso % (Auto) % Immature Gran # (Auto) (0.00-0.02) K/uL Neut # (Auto) (1.4-6.5) K/uL Lymph # (Auto) (1.2-3.4) K/uL [place] # (Auto) (0.11-0.59) K/uL Eos # (Auto) (0-0.5) K/uL Baso # (Auto) (0-0.2) K/uL Sodium (136-145) mmol/L Potassium (3.5-5.1) mmol/L Chloride (98-107) mmol/L Carbon Dioxide (21-32) mmol/L Anion Gap (3-11) BUN (7-18) mg/dl Creatinine (0.6-1.4) mg/dl Est Cr Clr Drug Dosing ml/min Est GFR ( Amer) Est GFR (Non-Af Amer) BUN/Creatinine Ratio (10-20) Glucose (70-99) mg/dl Calcium (8.5-10.1) mg/dl Phosphorus 2.1 L (2.5-4.9) mg/dl Magnesium (1.8-2.4) mg/dl Total Bilirubin (0.2-1) mg/dl AST (15-37) U/L ALT (12-78) U/L Alkaline Phosphatase (45-117) U/L Troponin I (0-0.045) ng/ml Total Protein (6.4-8.2) gm/dl Albumin (3.4-5.0) gm/dl Globulin (2.5-4.0) gm/dl Albumin/Globulin Ratio (0.9-2) Ethyl Alcohol mg/dL (0-3) mg/dl Imaging Data Radiologist's Impression: XR chest 1V portable HISTORY: seizure COMPARISON: Chest 12/17/2018. FINDINGS: No pneumothorax and no pleural effusions. The lungs are clear. The heart is normal in size. Nondisplaced right humeral neck fracture is noted. Nodular density within the left lower lung zone favors a nipple shadow. This remains unchanged. IMPRESSION: Nondisplaced right humeral neck fracture. XR shoulder RT 1V, XR humerus RT 2V CLINICAL HISTORY: seizure. Right arm pain. COMPARISON STUDY: None. FINDINGS: There is a slightly displaced right humeral neck fracture. No dislocation. The mid to distal humerus appears intact. The right clavicle is also intact. Soft tissues are unremarkable. IMPRESSION: Nondisplaced right humeral neck fracture. MDM Narrative Physical exam and history were performed. Nursing notes, EMR, and Medication List were personally reviewed. Patient appears to have had a seizure tonight prompting his presentation to the ER. The patient is accompanied by his caregiver who provides much of the history. On examination the patient appears to have some obvious old post stroke symptoms. He has significant tenderness and guarding of his right shoulder. The patient does not have any significant blood or bleeding. IV access was established and labs were obtained. X-rays were gathered. The patient is noted to be intermittently hypoxic as low as 79% on room air and he was placed on 4 L nasal cannula. He does not wear oxygen at home, but this did seem to significantly improve his oxygenation. He was given IV Keppra and cared for under seizure precautions. The patient blood work is as above and was reviewed. He does have a slightly elevated white blood cell count of 11,000. He does not have a significant anemia. Potassium is 3.0. BUN and creatinine are normal. Glucose was 201. Mag is 1.9. Phosphorus 2.1. Troponin is negative. Urine is without obvious evidence of infection. X-rays of the chest, shoulder, and humerus were per formed and reviewed by myself and radiology. Chest x-ray does not show any significant findings within the chest itself. Remaining images do show a proximal humerus fracture which would explain the patient's symptoms. X-ray of the chest does not show any distinct aspiration, which is of primary concern because of his oxygen level. Overall the patient does not appear well for discharge home. The patient is not adherent to his medication. He has now suffered a right arm fracture, although this is no longer his dominant arm after his stroke. The patient also has hypoxia of unknown etiology. I did discuss the case with the on-call hospitalist who agreed to evaluate the patient for further management. Please see their dictation for further patient course, plan, and disposition. The chart was completed utilizing [employer] Speech Voice Recognition Software. Grammatical errors, random word insertions, pronoun errors, and incomplete sentences are an occasional consequence of this system due to software limitations, ambient noise, and hardware issues. Any formal questions or concerns about the content, text, or information contained within the body of this dictation should be directly addressed to the provider for clarification. . Impression & Plan Generalized seizure, Hypoxia, Closed right humeral fracture Discharge Plan Visit Data *Final* Discharge Date/Time: 03/15/19 07:35 Chief Complaint: Seizure Stated Complaint: seizure ED Provider: Angela Myers ED Midlevel Provider: Jeyson Madden Discharge Problem: Generalized seizure, Hypoxia, Closed right humeral fracture Patient Disposition: Admitted As Inpatient Discharge Instructions Interventions: ED Discharge Assessment Last Done: 03/15/19 07:35
[2019-03-15 03:53] LABS: Basophils # (auto) 0.02 K/uL (0-0.2); Basophils % (auto) 0.2 %; Eosinophils # (auto) 0.15 K/uL (0-0.5); Eosinophils % (auto) 1.3 %; Immature Granulocytes # (auto) 0.03 K/uL (0.00-0.02); Immature Granulocytes % (auto) 0.3 %; Lymphocytes # (auto) 2.13 K/uL (1.2-3.4); Lymphocytes % (auto) 17.9 %; Mean Corpuscular Hgb Conc 36.4 g/dL (32-36); Mean Corpuscular Volume 90.7 fL (80-100); Monocytes # (auto) 0.98 K/uL (0.11-0.59); Monocytes % (auto) 8.2 %; Neutrophils # (auto) 8.58 K/uL (1.4-6.5); Neutrophils % (auto) 72.1 %; Platelet Count 192 K/uL (130-400); RDW Coefficient of Variation 11.8 % (11.5-14.5); RDW Standard Deviation 39.5 fL (36.4-46.3); Red Blood Count 4.85 M/uL (4.7-6.1); White Blood Count 11.89 K/uL (4.8-10.8)
[2019-03-15 04:11] LABS: Alanine Aminotransferase 21 U/L (12-78); Albumin Level 4.5 gm/dl (3.4-5.0); Aspartate Aminotransferase 21 U/L (15-37); BUN Creatinine Ratio 6.8 (10-20); Blood Urea Nitrogen 9 mg/dl (7-18); Calcium 9.2 mg/dl (8.5-10.1); Carbon Dioxide 25 mmol/L (21-32); Chloride 103 mmol/L (98-107); Creatinine Clr Calc Pharmacy 61.1 ml/min; Est GFR (African American) 73.7; Est GFR (Non-African American) 63.6; Glucose 201 mg/dl (70-99); Magnesium 1.9 mg/dl (1.8-2.4); Sodium 137 mmol/L (136-145)
[2019-03-15 04:16] LABS: Albumin Globulin Ratio 1.6 (0.9-2); Alkaline Phosphatase 88 U/L (45-117); Bilirubin,Total 0.8 mg/dl (0.2-1); Globulin 2.8 gm/dl (2.5-4.0); Total Protein 7.3 gm/dl (6.4-8.2); Troponin I < 0.015 ng/ml (0-0.045)
--- NOTE | 2019-03-15 05:33 | History & Physical Report ---
Date of Service March 15, 2019 Assessment & Plan (1) Seizure disorder: Admit tele Actually had not been taking his Keppra per caregiver. 1 gm Keppra given in ED PRN Ativan continue Keppra 500mg po BID EEG Neurology consult (2) Fracture, humerus closed: Pain control ordered Sling in place Ortho consult (3) Hypokalemia: Given 2 K-riders Will recheck 1300 (4) CVA, old, dysarthria: DVT prophylaxis = SCDs and sub-q Lovenox. (5) Hemiparesis, right: secondary to old CVA, is wheelchair bound. (6) Hypertension: PRN Hydralazine (7) Hypoxia: To low of 79% on room air in the ED. responded to supplemental oxygen. Likely due to post-ictal state But may have aspirated causing a chemical pneumonitis. No indication of pneumonia at this time. I ordered supplemental oxygen and prn albuterol nebs for now. History of Present Illness 53 y/o male presented to the ED after a witnessed seizure 1 hour prior to arrival. Patient is not able to give history, but roommate reports that patient was seated in wheelchair and began to have seizure causing patient to slid down onto ground or right side. Patient has history of seizures and is prescribed Keppra but has not been taking. He is having 8/10 pain in his right arm. No recent F/C, cough, SOB, chest pain, or headache. I confirmed with the caregiver that the patient is DNR. 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% " On 08/13/12 05:02 J Luis Torres wrote "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% " Cervical radiculopathy at C7 (Chronic) Change in mental status (Resolved) Hemiparesis (Resolved Unknown) "right hemiparesis " On 08/13/12 00:17 Ham Franklynlukasz wrote "right hemiparesis " Hemorrhagic shock (Resolved) Hyperammonemia (Resolved) Hyperkalemia (Resolved) Hypomagnesemia (Resolved) Hyponatremia (Resolved Unknown) Hypoxia (Resolved 02/22/14) Ischemic stroke (Chronic Unknown) "left MCA received TPA echo- LV mural thrombus residual right hemiparesis + aphasia " Left shoulder pain (Resolved) Leg fracture, right (Resolved) Metabolic encephalopathy (Resolved 03/21/14) Seizure (Resolved) Sepsis (Unknown) Shoulder pain (Resolved) Status epilepticus, 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) Suicide attempt (Chronic Unknown) Family History Father No pertinent family history Social History Preferred Language: Faroese Communication Ability: Impaired Garland Machine Operator Required: No Beliefs That Will Affect Care: None marital status: Single Current Living Situation: Significant Other Current Living Situation Comment: Júnior Vega ([facility]) Feels Safe at Home: Yes Smoking Status: Unknown if ever smoked Hx Alcohol Use: No Hx Substance Use: No Review of Systems Review of Systems: Unobtainable due to reduced consciousness Physical Exam Physical Exam: General- adult male, post ictal. Head- Normocephalic, Atraumatic. Eyes- PERRL, EOMI, anicteric ENT- oropharynx clear Neck- supple, no JVD, no adenopathy, no thyromegaly. Lungs- Mild expiratory wheezes, No rhonchi or rales. Heart- regular rhythm; no murmur, no gallop, no rub appreciated Abdomen- normal bowel sounds, soft, nontender, ND Extremities- no pretibial edema, no calf tenderness; peripheral pulses intact. Right arm is in sling. Neuro- Patient sleeping, post-ictal. Chronic Right sided hemiparesis. Skin- warm & dry Results & Data Vital Signs (Past 12 Hours) Vital Signs Temp Pulse Resp BP Pulse Ox 03/15/19 04:01 80 20 03/15/19 04:00 90 26 H 179/107 H 03/15/19 03:31 78 16 03/15/19 03:30 88 25 H 167/90 H 92 03/15/19 03:23 84 23 79 L 03/15/19 03:12 36.8 C 102 H 22 173/105 H 98 03/15/19 03:11 82 16 173/105 H 87 L Laboratory Results Laboratory Results WBC 11.89 K/uL (4.8-10.8) H 03/15/19 03:38 RBC 4.85 M/uL (4.7-6.1) 03/15/19 03:38 Hgb 16.0 g/dL (14.0-18.0) 03/15/19 03:38 Hct 44.0 % (42-52) 03/15/19 03:38 MCV 90.7 fL (80-100) 03/15/19 03:38 MCH 33.0 pg (25-34) 03/15/19 03:38 MCHC 36.4 g/dL (32-36) H 03/15/19 03:38 RDW Std Deviation 39.5 fL (36.4-46.3) 03/15/19 03:38 RDW Coeff of Yadira 11.8 % (11.5-14.5) 03/15/19 03:38 Plt Count 192 K/uL (130-400) 03/15/19 03:38 MPV 10.0 fL (7.4-10.4) 03/15/19 03:38 Immature Gran % (Auto) 0.3 % 03/15/19 03:38 Neut % (Auto) 72.1 % 03/15/19 03:38 Lymph % (Auto) 17.9 % 03/15/19 03:38 [place] % (Auto) 8.2 % 03/15/19 03:38 Eos % (Auto) 1.3 % 03/15/19 03:38 Baso % (Auto) 0.2 % 03/15/19 03:38 Immature Gran # (Auto) 0.03 K/uL (0.00-0.02) H 03/15/19 03:38 Neut # (Auto) 8.58 K/uL (1.4-6.5) H 03/15/19 03:38 Lymph # (Auto) 2.13 K/uL (1.2-3.4) 03/15/19 03:38 [place] # (Auto) 0.98 K/uL (0.11-0.59) H 03/15/19 03:38 Eos # (Auto) 0.15 K/uL (0-0.5) 03/15/19 03:38 Baso # (Auto) 0.02 K/uL (0-0.2) 03/15/19 03:38 Sodium 137 mmol/L (136-145) 03/15/19 03:38 Potassium 3.0 mmol/L (3.5-5.1) L 03/15/19 03:38 Chloride 103 mmol/L (98-107) 03/15/19 03:38 Carbon Dioxide 25 mmol/L (21-32) 03/15/19 03:38 Anion Gap 9.0 (3-11) 03/15/19 03:38 BUN 9 mg/dl (7-18) 03/15/19 03:38 Creatinine 1.27 mg/dl (0.6-1.4) 03/15/19 03:38 Est Cr Clr Drug Dosing 61.1 ml/min 03/15/19 03:38 Est GFR ( Amer) 73.7 03/15/19 03:38 Est GFR (Non-Af Amer) 63.6 03/15/19 03:38 BUN/Creatinine Ratio 6.8 (10-20) L 03/15/19 03:38 Glucose 201 mg/dl (70-99) H 03/15/19 03:38 Calcium 9.2 mg/dl (8.5-10.1) 03/15/19 03:38 Phosphorus 2.1 mg/dl (2.5-4.9) L 03/15/19 03:38 Magnesium 1.9 mg/dl (1.8-2.4) 03/15/19 03:38 Total Bilirubin 0.8 mg/dl (0.2-1) 03/15/19 03:38 AST 21 U/L (15-37) 03/15/19 03:38 ALT 21 U/L (12-78) 03/15/19 03:38 Alkaline Phosphatase 88 U/L (45-117) 03/15/19 03:38 Troponin I < 0.015 ng/ml (0-0.045) 03/15/19 03:38 Total Protein 7.3 gm/dl (6.4-8.2) 03/15/19 03:38 Albumin 4.5 gm/dl (3.4-5.0) 03/15/19 03:38 Globulin 2.8 gm/dl (2.5-4.0) 03/15/19 03:38 Albumin/Globulin Ratio 1.6 (0.9-2) 03/15/19 03:38 Ethyl Alcohol mg/dL < 3.0 mg/dl (0-3) 03/15/19 03:38 PG Care Time/CCT Total # of Minutes Spent Total Time Spent: 55 Total Time Spent with Patient: Total time spent is greater than 50% in coordination of care (as documented) at patient's floor/unit and/or counseling patient: Coding Level of Care Code 13784 Initial Inpt Care Lvl 3 Diagnoses Seizure disorder G40.909 Fracture, humerus closed S42.309A Hypokalemia E87.6 CVA, old, dysarthria I69.322 Hemiparesis, right G81.91 Hypertension I10 Hypoxia R09.02
[2019-03-15] MEDS ORDERED: POTASSIUM CHLORIDE / WTR 10 MEQ/100 ML PLCT IV STA (05:56)
--- NOTE | 2019-03-15 07:18 | XRay Report ---
XR shoulder RT 1V, XR humerus RT 2V CLINICAL HISTORY: seizure. Right arm pain. COMPARISON STUDY: None. FINDINGS: There is a slightly displaced right humeral neck fracture. No dislocation. The mid to dista l humerus appears intact. The right clavicle is also intact. Soft tissues are unremarkable. IMPRESSION: Nondisplaced right humeral neck fracture. ACT 112: Negative or not required by law. Electronically signed by: Luke Arenas M.D. 03/15/2019 7:17 AM
--- NOTE | 2019-03-15 07:19 | XRay Report ---
XR chest 1V portable HISTORY: seizure COMPARISON: Chest 12/17/2018. FINDINGS: No pneumothorax and no pleural effusions. The lungs are clear. The heart is normal in size. Nondisplaced right humeral neck fracture is noted. Nodular density within the left lower lung zone f avors a nipple shadow. This remains unchanged. IMPRESSION: Nondisplaced right humeral neck fracture. ACT 112: Negative or not required by law. Electronically signed by: Luke Arenas M.D. 03/15/2019 7:18 AM
[2019-03-15] MEDS ORDERED: ACETAMINOPHEN 325 MG TAB PO PRN (08:14)
[2019-03-15] MEDS ORDERED: SODIUM CHLORIDE 0.45 % 1,000 ML IV SCH (08:14)
[2019-03-15] MEDS ORDERED: HydrALAZINE HCL 20 MG/ML VIAL IV PRN (08:14)
[2019-03-15] MEDS ORDERED: ALBUTEROL 0.083% NEBU SOLN 3 ML VIAL NEB PRN (08:14)
[2019-03-15] MEDS ORDERED: LORazepam 2 MG/4 ML VIAL IV PRN (08:14)
[2019-03-15] MEDS: ENOXAPARIN INJ 40 MG/0.4 ML SYR SQ SCH (10:26)
[2019-03-15] MEDS: PANTOprazole 40 MG TAB PO SCH (10:27)
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
[2019-03-15 11:03] LABS: Appearance Urine Clear (Clear); Bacteria Urine Automated Negative (Negative); Bilirubin Urine Negative (Negative); Blood Urine Negative (Negative); Color Urine Yellow; Glucose Urine UA Negative (Negative); Ketones Urine Negative (Negative); Leukocyte Esterase Urine Negative (Negative); Nitrite Urine Negative (Negative); Protein Urine 1+ (Negative); RBC Urine Automated 0-4 /hpf (0-4); Specific Gravity Urine 1.011 (1.000-1.030); Urobilinogen Urine Negative (Negative)
--- NOTE | 2019-03-15 11:27 | CT Scan Report ---
CT shoulder RT wo con CT DOSE: 424.95 mGycm CLINICAL HISTORY: Proximal Humerus Fx TECHNIQUE: Helical images were acquired in the transverse plane. Sagittal coronal reformatted images were acquired. A dose lowering technique was utilized adhering to the principles of ALARA. COMPARISON STUDY: X-ray study dated 03/15/2019 FINDINGS: There are mucoid secretions within the right mainstem bronchus. There is an oblique fracture of the humeral neck demonstrate 8 mm of maximal displacement. There is n o dislocation. There is no intra-articular extension. There is minimal foreshortening. IMPRESSION: 1. Oblique humeral neck fracture demonstrating 8 mm of maximal displacement. No intra-articular exten mirta. No dislocation. ACT 112: Negative or not required by law. Electronically signed by: Rishabh Akers M.D. 03/15/2019 11:25 AM
[2019-03-15 11:37] LABS: Amphetamines+Metham, Urine Neg (Neg); Barbiturates, Urine Neg (Neg); Benzodiazepine, Urine Neg (Neg); Cocaine, Urine Neg (Neg); MDMA (Ecstacy), Urine Neg (Neg); Methadone, Urine Neg (Neg); Opiate, Urine Neg (Neg); Phencyclidine, Urine Neg (Neg); Sperm Urine Present (None Prsent)
--- NOTE | 2019-03-15 12:07 | Electroencephalogram ---
EEG Procedure Note Date of Service March 15, 2019 Start / End Times Start Time: 8:37am End Time: 8:57am Referring Physician Yared Mims History 53 yo man w/ PMH of multiple prior strokes and epilepsy, p/w breakthrough seizure Home Medication List Home Medications Medication Instructions Recorded Confirmed Type tramadol 50 mg PO TID PRN #0 tab 12/10/18 03/15/19 Rx Inpatient Medication List Enoxaparin Sodium (Lovenox) 40 mg SQ Q24H DEZ Stop: 04/14/19 08:59 Last Admin: 03/15/19 10:26 Dose: 40 mg Documented by: [id number] Sodium Chloride (1/2 Nss) 1,000 mls @ 75 mls/hr IV .[id number] DEZ Stop: 04/14/19 08:13 Last Admin: 03/15/19 09:41 Dose: 75 mls/hr Documented by: [id number] Levetiracetam (Keppra) 500 mg PO Q12H DEZ Stop: 04/14/19 08:59 Last Admin: 03/15/19 10:27 Dose: 500 mg Documented by: [id number] Pantoprazole Sodium (Protonix) 40 mg PO QAM DEZ Stop: 04/14/19 08:59 Last Admin: 03/15/19 10:27 Dose: 40 mg Documented by: [id number] Discontinued Medications Levetiracetam 1,000 mg/ (Dextrose) 110 mls @ 440 mls/hr IV NOW STA Stop: 03/15/19 03:37 Last Infusion: 03/15/19 04:25 Dose: 0 mls/hr Documented by: [id number] Admin: 03/15/19 04:09 Dose: 440 mls/hr Documented by: [id number] Potassium Chloride (K Cal / Wtr) 10 meq in 100 mls @ 100 mls/hr IV Q1H STA Stop: 03/15/19 06:55 Last Infusion: 03/15/19 08:14 Dose: 0 mls/hr Documented by: [id number] Admin: 03/15/19 06:15 Dose: 100 mls/hr Documented by: [id number] Description This is a 21 electrode EEG with a single channel dedicated to limited EKG. The electrodes were placed in accordance with the International 10-20 system. History: 53 yo man w/ PMH of multiple prior strokes and epilepsy, p/w breakthrough seizure Rx: s/p 1g keppra load Start/Stop: 8:37am/8:57am Attending reading: Evelyn Figueroa EEG Description: EEG background: Near continuous left hemispheric 4-5 Hz slowing was noted, with normal alpha noted in the right hemisphere. No well formed posterior dominant rhythm was observed. The EEG is continuous. There is variability and reactivity present. Activation and reactivity: Photic stimulation performed without any abnormalities noted. No photic driving observed. Hyperventilation was not performed. Sleep: Patient was drowsy and entered light sleep. Stages I and II of sleep were recorded with normal vertex waves and sleep spindles noted. Epileptiform discharges: A single right temporal sharp (T4) was observed. Rhythmic and periodic patterns: None Seizures: None Impression: This was an abnormal EEG given left hemispheric slowing consistent with known history of prior large left MCA stroke. There was a single temporal sharp noted (epileptiform discharge) consistent with known history of epilepsy.
--- NOTE | 2019-03-15 13:02 | Electrocardiogram Report ---
Test Reason : Blood Pressure : / mmHG Vent. Rate : 097 BPM Atrial Rate : 097 BPM P-R Int : 154 ms QRS Dur : 092 ms QT Int : 378 ms P-R-T Axes : 072 050 080 degrees QTc Int : 480 ms Poor data quality, interpretation may be adversely affected Normal sinus rhythm Moderate voltage criteria for LVH, may be normal variant Nonspecific ST abnormality Possible Inferior infarct (cited on or before 19-NOV-2013) Abnormal ECG When compared with ECG of 17-DEC-2018 19:35, No significant change was found Confirmed by Ciro Meade ([id number]) on 03/15/2019 1:01:48 PM Referred By: REFERRED SELF Confirmed By:Berto Meade
[2019-03-15] MEDS ORDERED: VALPROATE SOD IV ONE (17:00)
[2019-03-15] MEDS ORDERED: DEXTROSE 5% IV ONE (17:00)
[2019-03-15] MEDS: lisinopriL 20 MG TAB PO SCH (19:31)
--- NOTE | 2019-03-15 20:24 | History & Physical Bridge Note ---
Date of Service March 15, 2019 History & Physical Bridge Note I have examined the patient, reviewed the History & Physical and in the interval since the performance of the History & Physical I have noted the following changes of clinical significance: No seizure activity since admission. He has been intermittently refusing care and ripped out his IV as per nursing. He was then agreeable later to have it put back in. He remained hypertensive throughout the day. I discussed the case with neurology. The patient apparently stopped taking all of his medications in an effort that he would hopefully . When I saw him, he commented "I do not care" in response to me telling them were putting him on Depakote to help prevent seizures. He then followed this up with "I want to ." Discussed the case with the psychiatric nurse liaison who also saw him and reported he got very frustrated with her and when he learned she was from behavioral health, threw her out of the room. Vitals reviewed Lying in bed, appears chronically ill, thin Regular rate and rhythm, no murmurs gallops rubs Lungs clear to auscultation bilaterally Right upper extremity in a shoulder sling [id number] hemiparesis, speech is dysarthric, agitated and frustrated with questions Given his history of multiple CVAs-added aspirin, statin, check lipid panel in the morning, needs improved blood pressure control-added lisinopril back Neurology also suggested adding gabapentin for his neuropathy and trying to taper him off tramadol-he says he is agreeable to this -Follow BMP in the morning As for his seizures-start Depakote load with 650 mg IV x1 now and then start 500 mg extended release once daily by mouth in the morning Appreciate neurology consultation Right humerus fracture-remain in sling, orthopedics consult pending
[2019-03-15] MEDS: GABAPENTIN 300 MG CAP PO SCH ×2 (20:30→21:39)
[2019-03-15] MEDS: HydrALAZINE HCL 20 MG/ML VIAL IV PRN (20:48)
[2019-03-15] MEDS: ONDANSETRON INJ 2 MG/ML 2 ML VIAL IV PRN (21:35)
[2019-03-15] MEDS: HYDROmorphone INJ 0.5 MG/0.5 ML SYR IV PRN (21:36)
--- NOTE | 2019-03-16 01:07 | Consultation Report ---
DATE OF CONSULTATION: 03/15/2019 He was seen at the request of Dr. Yared Mims. HISTORY OF PRESENT ILLNESS: This is a 53-year-old now left hand dominant gentleman who was seen earlier today in the Emergency Department after he had a witnessed seizure and fall on to his right upper extremity. His roommate reported that he was seated in his wheelchair and began to have seizure causing the patient to slide down on the ground on his right side. He has a history of seizure disorder and right-sided hemiparesis status post stroke. The patient had complaints of right upper extremity pain. He was admitted to the hospitalist service and orthopedics was consulted. He has minimal use of his right upper extremity as he has post-stroke syndrome on the right upper extremity. PAST MEDICAL HISTORY: He has chronic anemia; acute renal failure; arterial ischemic stroke, middle cerebral artery; left chronic back pain; breakthrough seizures; cardiomyopathy, idiopathic, LVEF is 25%; cervical radiculopathy, C7, chronic; change in mental status, resolved; hemiparesis, right side; hemorrhagic shock; hyperammonemia; hyperkalemia; hypomagnesemia; hyponatremia; hypoxia; left shoulder pain, resolved; leg fracture, right, resolved; metabolic encephalopathy, resolved; sepsis, resolved; status epilepticus, chronic; attempted suicide, chronic. PAST SURGICAL HISTORY: Noncontributory. ALLERGIES: CODEINE, MILD HIVES. MEDICATIONS: Tramadol, noncompliant with Keppra. SOCIAL HISTORY: He is single, he lives with his significant other. His POA is Teja Gary. No smoking, alcohol use or drug use currently. PHYSICAL EXAMINATION: GENERAL: This is an adult male lying supine in his hospital room bed. NEUROLOGIC: He has obvious post-stroke syndrome, right upper extremity and right lower extremity. He has a sling in right upper extremity. He has abnormal facies consistent with post-stroke syndrome. HEENT: Oropharynx is clear. Difficult to understand his speech due to his dysarthria. EXTREMITIES: Examination of the right upper extremity demonstrates skin warm, dry and intact. Local bruising at the proximal humerus, tenderness to palpation at the proximal humerus. No gross malalignment. He has atrophy of the entire right upper extremity due to post-stroke hemiparesis. Limited functional range of motion of the right upper extremity due to chronic spasticity. IMAGING DATA: Radiographs demonstrate osteopenia and a minimally displaced proximal humeral fracture. CT scan of right upper extremity demonstrates minimally displaced right proximal humerus fracture. No evidence of dislocation. Osteopenia is evident. IMPRESSION: 1. Right proximal humerus fracture with minimal displacement. 2. Post-stroke syndrome, right upper extremity with hemiparesis. 3. Seizure disorder. RECOMMENDATION: Nonoperative closed management, right upper extremity, proximal humerus fracture with use of a sling for 3-4 weeks. Supportive care, ice, anti-inflammatories if approved by medical service. Follow up with Dr. Yi in clinic for followup x-rays. Thank you for the opportunity to consult in care of this patient.
[2019-03-16] MEDS: ONDANSETRON INJ 2 MG/ML 2 ML VIAL IV PRN (03:17)
[2019-03-16 04:24] LABS: Hematocrit (blood only) 42.7 % (42-52); Hemoglobin 15.4 g/dL (14.0-18.0); Mean Corpuscular Hemoglobin 32.6 pg (25-34); Mean Corpuscular Hgb Conc 36.1 g/dL (32-36); Mean Corpuscular Volume 90.3 fL (80-100); Mean Platelet Volume 10.3 fL (7.4-10.4); Platelet Count 232 K/uL (130-400); RDW Standard Deviation 39.4 fL (36.4-46.3); Red Blood Count 4.73 M/uL (4.7-6.1); White Blood Count 18.35 K/uL (4.8-10.8)
[2019-03-16 04:40] LABS: BUN Creatinine Ratio 7.2 (10-20); Calcium 9.7 mg/dl (8.5-10.1); Creatinine Clr Calc Pharmacy 39.9 ml/min; Est GFR (African American) 43.6; Est GFR (Non-African American) 37.7; Potassium 3.4 mmol/L (3.5-5.1)
[2019-03-16] MEDS: HYDROmorphone INJ 0.5 MG/0.5 ML SYR IV PRN (06:13)
[2019-03-16 06:55] LABS: Estimated Average Glucose 100 mg/dl; Hemoglobin A1C 5.1 % (4.5-5.6)
[2019-03-16] MEDS: ASPIRIN 81 MG ECTAB PO SCH (07:54)
[2019-03-16] MEDS: ATORVASTATIN 40 MG TAB PO SCH (07:54)
[2019-03-16] MEDS: ENOXAPARIN INJ 40 MG/0.4 ML SYR SQ SCH (07:54)
[2019-03-16] MEDS: GABAPENTIN 300 MG CAP PO SCH ×2 (07:54→21:37)
[2019-03-16] MEDS: DIVALPROEX EXTENDED RELEASE 500 MG TAB PO SCH (07:54)
[2019-03-16] MEDS: PANTOprazole 40 MG TAB PO SCH (07:54)
[2019-03-16] MEDS: lisinopriL 20 MG TAB PO SCH (07:55)
[2019-03-16] MEDS ORDERED: DIVALPROEX EXTENDED RELEASE 500 MG TAB PO SCH (09:00)
[2019-03-16] MEDS: SODIUM CHLORIDE 0.9% 1000ML 1,000 ML IV SCH ×3 (10:19→17:44)
[2019-03-16] MEDS: METOPROLOL SUCC 25MG EXT REL TAB PO SCH (10:19)
--- NOTE | 2019-03-16 13:23 | Psychiatric Consultation ---
Date of Consultation March 16, 2019 Impression / Recommendations Impression 53 yo male with complex medical history including multiple strokes and seizures, now with arm fx, made suicidal statements in the context of pain though history since November suggests ongoing chronic low mood and recurrent suicidal statements. He has been resistant to care in [place] up to this point and is currently in ARF per Dr. Hull and mehdi. (1) Major depression, recurrent: ongoing monitoring on medical floor, currently cooperative with care, just started to take PO meds and antiseizure are top priorities. I would like to retry an SSRI and/or Seroquel as the later has been helpful for irritability in the past but don't feel he is fully able to consent today. Given resistance to meds, use of Remeron as single agent that can be given as tal tab may be more agreeable to patient. With regards to level of care, will wait to see if SNF final rec/agreeable. Today he seems to have somewhat diminished capacity, unsure how much related to post ictal, med titration, or worsening of baseline cognitive status post stroke. Psych History Chief Complaint "My head isn't right", gestures to thoughts going round and round History of Present Illness patient is seemingly reporting some confusion and word finding difficulties following this seizure. Was last seen on consult service in November, at that time caregiver expressed concerns that he was making suicidal statements at home/gesturing about cutting his throat. readmit for fx following seizure and has been more irritable this presentation, pulled out IV but did allow reinsertion. Refused to see liaison nurse yesterday. Reportedly stopped taking meds as wants to and told Dr. Hull that wanted to , no on and physically not felt to be able to harm self and hasn't been acting out today. He currently states he does not plan to harm himself in the hospital just wants something for pain and wants the pain to stop. He seemed amenable to dose titration in medications but shuts down evaluation, "I'm done with this." Is taking meds today. Past Psychiatric History Previous Psych History: Current Psychiatric Diagnosis: Depression, anxiety, substance abuse Outpatient Services: Psychiatric medications currently prescribed by primary care providers, patient denies being established currently with a therapist. Patient was previously seen by psychiatrist at [facility] Previous Psych Admissions: Per 08/21/18 consultation: [facility] admissions - 08/2012, 12/2012, 2 admissions in 2010 Do You Have Access To A Gun?: No History of Previous Suicide Attempt: Yes Describe Attempts in the Past: Several previous attempts by cutting and one overdose attempt Past Medication Trials: Per previous psychiatric consultation: - Wellbutrin - increased anger - Lexapro - Ativan - Prozac - Seroquel - "took edge off" Allergies Allergy/AdvReac Type Severity Reaction Status Date / Time codeine Allergy Mild HIVES Verified 03/15/19 12:01 Home Medications Home Medications Medication Instructions Recorded Confirmed Type tramadol 50 mg PO TID PRN #0 tab 12/10/18 03/15/19 Rx Family History unable to confirm at this time Personal History Living Arrangements: Home Employment Status: Disabled Marital Status: Living w/ Signif. Other Beliefs That Will Affect Care: None Patient History Medical History Anemia (Chronic) ARF (acute renal failure) (Resolved 02/03/14) Arterial ischemic stroke, MCA (middle cerebral artery), left, chronic (Resolved) Back pain (Chronic) Breakthrough seizure (Resolved) Cardiomyopathy (Chronic Unknown) "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% " On 08/13/12 05:02 J Luis Torres wrote "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% " Cervical radiculopathy at C7 (Chronic) Change in mental status (Resolved) Hemiparesis (Resolved Unknown) "right hemiparesis " On 08/13/12 00:17 Ham Jacobs wrote "right hemiparesis " Hemorrhagic shock (Resolved) Hyperammonemia (Resolved) Hyperkalemia (Resolved) Hypomagnesemia (Resolved) Hyponatremia (Resolved Unknown) Hypoxia (Resolved 02/22/14) Ischemic stroke (Chronic Unknown) "left MCA received TPA echo- LV mural thrombus residual right hemiparesis + aphasia " Left shoulder pain (Resolved) Leg fracture, right (Resolved) Metabolic encephalopathy (Resolved 03/21/14) Seizure (Resolved) Sepsis (Unknown) Shoulder pain (Resolved) Status epilepticus, 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) Suicide attempt (Chronic Unknown) Family History Father No pertinent family history Social History Preferred Language: [place]se Communication Ability: Impaired 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: No Beliefs That Will Affect Care: None marital status: Single Current Living Situation: Significant Other Current Living Situation Comment: Júnior Vega (POA) Other Information That Helps Us Care for You: No Feels Safe at Home: Yes Safety Concerns: Feels Safe At This Time Smoking Status: Never smoker Cigarettes Per Day: 2 ; Second Hand Exposure: No ; Hx Alcohol Use: No Hx Substance Use: No Physical Exam Psychiatric: Orientation: alert Apperance: appropriately groomed Eye Contact: + poor eye contact hemiplegia with facial droop garbled Affect: + depressed affect Mood: + depressed mood Thought Content: no delusions Suicidal Thoughts: denies suicidal thoughts (at this moment but also limited playground monitor) Homicidal Thoughts: denies homicidal thoughts Hallucinations: no auditory hallucinations and no visual hallucinations Cognition: + attention not intact Estimated Intelligence: consistent with education level Insight: + limited insight Judgement: + limited judgement Vital Signs (Past 24 Hours): Last Vital Signs Temp 36.9 C 03/16/19 11:30 Pulse 110 H 03/16/19 11:30 Resp 18 03/16/19 11:30 BP 134/72 03/16/19 11:30 Pulse Ox 98 03/16/19 11:30 Review of Systems Unobtainable due to cognitive status Results & Data (PSY) Medications Administered Aspirin (Ecotrin Ectab) 81 mg PO QAM [facility] Stop: 04/15/19 08:59 Last Admin: 03/16/19 07:54 Dose: 81 mg Documented by: [id number] Atorvastatin Calcium (Lipitor) 40 mg PO QAM [facility] Stop: 04/15/19 08:59 Last Admin: 03/16/19 07:54 Dose: 40 mg Documented by: [id number] Divalproex Sodium (Depakote Extended Release) 500 mg PO DAILY [facility] Stop: 04/15/19 08:59 Last Admin: 03/16/19 07:54 Dose: 500 mg Documented by: [id number] Enoxaparin Sodium (Lovenox) 40 mg SQ Q24H [facility] Stop: 04/14/19 08:59 Last Admin: 03/16/19 07:54 Dose: 40 mg Documented by: [id number] Admin: 03/15/19 10:26 Dose: 40 mg Documented by: [id number] Gabapentin (Neurontin) 300 mg PO BID [facility] Stop: 04/14/19 20:59 Last Admin: 03/16/19 07:54 Dose: 300 mg Documented by: [id number] Admin: 03/15/19 21:39 Dose: 300 mg Documented by: [id number] Hydralazine HCl (Hydralazine Hcl) 10 mg IV Q8H PRN PRN Reason: SBP>180 or DBP>110 Stop: 04/14/19 20:05 Last Admin: 03/15/19 20:48 Dose: 10 mg Documented by: [id number] Hydromorphone HCl (Dilaudid) 0.5 mg IV Q3H PRN PRN Reason: Severe Pain Stop: 03/29/19 08:13 Last Admin: 03/16/19 06:13 Dose: 0.5 mg Documented by: [id number] Admin: 03/15/19 21:36 Dose: 0.5 mg Documented by: [id number] Sodium Chloride (Nss 1000ml) 1,000 mls @ 125 mls/hr IV .Q8H [facility] Stop: 04/15/19 09:29 Last Admin: 03/16/19 10:25 Dose: Not Given Documented by: [id number] Metoprolol Succinate (Toprol Xl) 25 mg PO [facility] Stop: 04/15/19 09:44 Last Admin: 03/16/19 10:19 Dose: 25 mg Documented by: [id number] Ondansetron HCl (Zofran) 4 mg IV Q6H PRN PRN Reason: nausea or vomiting Stop: 04/14/19 08:13 Last Admin: 03/16/19 03:17 Dose: 4 mg Documented by: [id number] Admin: 03/15/19 21:35 Dose: 4 mg Documented by: [id number] Pantoprazole Sodium (Protonix) 40 mg PO [facility] Stop: 04/14/19 08:59 Last Admin: 03/16/19 07:54 Dose: 40 mg Documented by: [id number] Admin: 03/15/19 10:27 Dose: 40 mg Documented by: [id number] Coding Level of Care Code 80311 [facility] Intl Hosp Care Lvl 2 Diagnoses Major depression, recurrent F33.9
--- NOTE | 2019-03-16 19:53 | Hospitalist Progress Note ---
Date of Service March 16, 2019 Assessment & Plan (1) Seizure disorder: Presented with a witnessed generalized seizure which resulted in a right humerus fracture when he fell out of his wheelchair Has had a seizure disorder for years and has had a significant left MCA territory stroke which puts him at risk for seizure Actually had not been taking his Keppra per caregiver. Patient has been refusing all his meds at home he states in an effort to try to given suicidal ideations 1 gm Keppra given in ED Seen by neurology here, EEG shows some brief epileptic focus-neurology recommends Depakote as it has less effect on mood than Keppra Depakote was loaded at 650 mg IV x1 and now on Depakote ER 500 mg p.o. daily in the morning -Check Depakote level in the morning -PRN Ativan (2) Fracture, humerus closed: Right humeral neck fracture secondary to seizure and fall out of wheelchair CT of shoulder shows no dislocation or intra-articular fracture Orthopedics consultation appreciated Recommend sling for 3 to 4 weeks and follow-up with orthopedics as an outpatient Pain control as needed (3) Hypokalemia: Low upon admission was replaced Remains mildly low secondary to poor p.o. intake Replace as needed -Follow BMP (4) CVA, old, dysarthria: With a history of 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, dysarthria With chronic spastic pain Has a previous history of LV thrombus which was treated with anticoagulation a couple of years ago Given his history of multiple CVAs-added aspirin, high intensity statin as he was not on these at the time of admission -Needs improved blood pressure control-added lisinopril back but now with RAVEN, DC lisinopril and add Toprol-XL 25 mg daily Neurology also suggested adding gabapentin for his neuropathy and chronic pain and trying to taper him off tramadol-he says he is agreeable to this -Supportive care PT/OT consult (5) Hemiparesis, right: secondary to old CVA, is wheelchair bound. As above (6) Hypertension: Blood pressures significantly elevated upon first day of admission and are now much improved with starting lisinopril and Toprol-XL, however lisinopril now will be held due to acute kidney injury -Continue Toprol-XL 25 mg once daily Hydralazine PRN (7) Hypoxia: To low of 79% on room air in the ED. responded to supplemental oxygen. Likely due to post-ictal state But may have aspirated causing a chemical pneumonitis. No indication of pneumonia at this time. No longer requiring any oxygen (8) Major depression, recurrent: Severe, with suicidal ideations Seen by psychiatry-recommend starting either Remeron or Seroquel or SSRI-they will continue to follow Patient is agreeable to this-we will start Remeron 7.5 mg p.o. at bedtime as he took this during last admission and had improvement (9) Polyneuropathy: Start gabapentin 300 mg p.o. twice daily as per neurology recommendation Titrate up if needed (10) Cardiomyopathy: Presumed nonischemic cardiomyopathy Most recent echo in 2018 shows improved LVEF 45% with wall motion abnormalities -Not volume overloaded and in fact is dehydrated -Attempted to restart lisinopril but with acute kidney injury-we will discontinue -Start Toprol-XL 25 mg daily (11) ARF (acute renal failure): Creatinine up to 1.9 from 1.2 after starting lisinopril and poor p.o. intake -Patient adamantly declining IV fluid hydration and will try to hydrate orally -Follow BMP in the morning With mild associated metabolic acidosis with anion gap (12) DVT prophylaxis: SCDs Dispo- remain on med/surg PT/OT consults placed to make sure he is at his baseline mobility status Case management involved-plans to return home with shuttle final inspector Don Terri Patient reports he always has pain but maybe is a little better with starting gabapentin yesterday. Continues to say "I am done." He is agreeable to starting an antidepressant to help his mood though. No seizure activity. He was refusing IV fluids today for his renal failure and is agreeable to trying to drink more p.o. He did have an episode of vomiting earlier this morning. Remains afebrile. Telemetry with normal sinus rhythm with rates in the 60s to 90s. He was seen by psychiatry today and I discussed the case with them. Review of Systems Review of Systems: All systems reviewed & are unremarkable except as noted in HPI & below (Denies chest pain or shortness of breath) Physical Exam Constitutional: + ill appearing (Chronically) and + thin; no acute distress Eyes: + anicteric sclerae Neck: trachea midline, no thyromegaly Respiratory: normal respiratory effort, lungs clear to auscultation Cardiovascular: RRR, no murmur, no edema Chest (Breasts): Chest: normal inspection of chest Gastrointestinal (Abdomen): normal bowel sounds, soft, nontender, no hepatosplenomegaly Musculoskeletal: Extremities: + extremities abnormal to inspection (Right upper extremity in sling), no cyanosis and no clubbing Skin: no rashes, warm and dry Neurologic: + focal motor deficit (Right-sided hemiparesis) and awake Psychiatric: Orientation: alert, oriented to person, oriented to place and cooperative Eye Contact: good eye contact Speech: + abnormal rate/rhythm/volume of speech (Dysarthria, expressive aphasia) Affect: + depressed affect and + irritable affect Lymphatic: no lymphedema Results & Data ([facility]) Vital Signs (Past 12 Hours) Vital Signs Temp Pulse Resp BP Pulse Ox 03/16/19 19:48 36.5 C 101 H 20 109/65 97 03/16/19 15:02 36.9 C 95 H 18 101/65 96 03/16/19 11:30 36.9 C 110 H 18 134/72 98 Laboratory Results 03/16/19 03/16/19 03/16/19 Range/Units 04:14 04:14 04:14 WBC 18.35 H (4.8-10.8) K/uL RBC 4.73 (4.7-6.1) M/uL Hgb 15.4 (14.0-18.0) g/dL Hct 42.7 (42-52) % MCV 90.3 (80-100) fL MCH 32.6 (25-34) pg MCHC 36.1 H (32-36) g/dL RDW Std Deviation 39.4 (36.4-46.3) fL RDW Coeff of Yadira 12.0 (11.5-14.5) % Plt Count 232 (130-400) K/uL MPV 10.3 (7.4-10.4) fL Sodium 140 (136-145) mmol/L Potassium 3.4 L (3.5-5.1) mmol/L Chloride 104 (98-107) mmol/L Carbon Dioxide 20 L (21-32) mmol/L Anion Gap 16.0 H (3-11) BUN 14 D (7-18) mg/dl Creatinine 1.96 H D (0.6-1.4) mg/dl Est Cr Clr Drug Dosing 39.9 ml/min Est GFR ( Amer) 43.6 Est GFR (Non-Af Amer) 37.7 BUN/Creatinine Ratio 7.2 L (10-20) Glucose 71 (70-99) mg/dl Estimat Average Glucose 100 mg/dl Hemoglobin A1c 5.1 (4.5-5.6) % Calcium 9.7 (8.5-10.1) mg/dl Triglycerides 108 (0-150) mg/dl Cholesterol 144 (0-200) mg/dl LDL Cholesterol, Calc 81 mg/dl VLDL Cholesterol, Calc 22 mg/dl HDL Cholesterol 41 mg/dl Cholesterol/HDL Ratio 4 PG Care Time/CCT Total # of Minutes Spent Total Time Spent with Patient: Total time spent is greater than 50% in coordination of care (as documented) at patient's floor/unit and/or counseling patient: Coding Level of Care Code 05702 Subseq Hosp Care Lvl 3 Diagnoses Seizure disorder G40.909 Fracture, humerus closed S42.309A Hypokalemia E87.6 CVA, old, dysarthria I69.322 Hemiparesis, right G81.91 Hypertension I10 Hypoxia R09.02 Major depression, recurrent F33.9 Polyneuropathy G62.9 Cardiomyopathy I42.9 ARF (acute renal failure) N17.9 DVT prophylaxis Z29.9
[2019-03-16] MEDS: MIRTAZAPINE TAB 15 MG TAB PO SCH (21:37)
[2019-03-17] MEDS: SODIUM CHLORIDE 0.9% 1000ML 1,000 ML IV SCH ×3 (01:53→08:25)
[2019-03-17 06:21] LABS: Hemoglobin 13.8 g/dL (14.0-18.0); Mean Corpuscular Hemoglobin 32.5 pg (25-34); Mean Corpuscular Hgb Conc 36.3 g/dL (32-36); Mean Corpuscular Volume 89.6 fL (80-100); Mean Platelet Volume 10.3 fL (7.4-10.4); Platelet Count 218 K/uL (130-400); RDW Coefficient of Variation 12.4 % (11.5-14.5); RDW Standard Deviation 40.5 fL (36.4-46.3); Red Blood Count 4.24 M/uL (4.7-6.1); White Blood Count 17.65 K/uL (4.8-10.8)
[2019-03-17 07:35] LABS: BUN Creatinine Ratio 14.3 (10-20); Calcium 8.3 mg/dl (8.5-10.1); Creatinine Clr Calc Pharmacy 21.6 ml/min; Est GFR (African American) 21.3; Est GFR (Non-African American) 18.4; Potassium 3.2 mmol/L (3.5-5.1)
[2019-03-17] MEDS: ENOXAPARIN INJ 40 MG/0.4 ML SYR SQ SCH (08:11)
[2019-03-17] MEDS: PANTOprazole 40 MG TAB PO SCH (08:11)
[2019-03-17] MEDS ORDERED: POTASSIUM CHLORIDE 10 MEQ TABCR PO STA (08:33)
--- NOTE | 2019-03-17 09:16 | Neurology Progress Note ---
Date of Service March 17, 2019 Assessment & Plan (1) History of seizures: Jim Gardner is a 53 yo man w/ PMH of prior cocaine/heroin abuse, h/o cardiomyopathy, prior left MCA stroke c/b residual R-sided weakness/aphasia/muscle spasms and post-stroke epilepsy (not currently taking any AED but with h/o status epilepticus in 2013), h/o alcohol abuse, HTN, HLD, anxiety/depression with prior suicide attempts, neuropathy and chronic pain syndrome followed by the pain clinic who p/t [facility] after breakthrough seizure. # Breakthrough seizure: pt clearly has a reason to have seizures as evidenced by large area of encephalomalacia from prior stroke, however given description of some of the previous events that have brought up to the hospital and underlying mood disorder, he may have a mixed picture with epileptic and nonepileptic events. His current event was likely a real seizure given the right humeral fracture. He has been on several AEDs in the past and is not clear why he has stopped them (looks like he transitioned from depakote to lamictal in the s etting of hyperammonemia but it was never treated). Keppra would not be a good choice for him since he has a history of depression with SI in the past. UDS + for marijuana (if synthetic, could be a trigger for seizures). Ammonia 31.5 (WNL). - Continue depakote XR 500mg daily. Free/total depakote level and ammonia still pending. - If ammonia level is elevated while on depakote, recommend starting levocarnitine 1000mg tid and re-checking level in 2 weeks. - should follow up with Dr Crouch as an outpatient in the next 2-4 weeks (or Marleni Ludwig if unable to get an appointment with him in that time frame) # Prior L MCA stroke w/ residual deficits: He also has several other lacunar strokes on prior MRI. Does not appear to be on any treatment for secondary stroke prevention at this time. A1c 5.1 and LDL 81. - he has been having issues with spasms related to post stroke spasticity. Recommend considering tizanidine 2mg qhs (can titrate up to 2mg bid as tolerated). - continue aspirin 81mg daily and atorvastatin 40mg qhs (may want to hold atorva in setting of unexplained RAVEN) - goal normotension (<130/85), defer to primary team for meds in the setting of RAVEN # Neuropathy: he would likely benefit from restarting gabapentin. This can be done as an outpatient especially given new onset acute renal failure on labs this AM (Cr 3.55, GFR 21); if continuing gabapentin, would need to renal dose it (max 300mg bid). Thank you for this interesting consult. Plan discussed with primary team. Please text or call with questions. (2) History of alcoholism: (3) Hypertension: (4) H/O ischemic left MCA stroke: Subjective Now in acute renal failure 2/2 refusing IVFs and not taking PO. Agitated this morning and not wanting to answer many questions. He did agree to complete the neurologic exam but did not want to talk otherwise because he becomes frustrated. Review of Systems Review of Systems: Difficult to assess 2/2 pt mental status and mental health condition. Physical Exam Physical Exam: General Exam: GEN: NAD, sleeping in bed but easily awakened CV: RRR, no peripheral edema PULM: Nonlabored respirations on room air. Neuro Exam: MS: Sleeping but easily arousable. Expressive aphasia. Able to say yes and answer questions but becomes easily frustrated. Refused to answer orientation questions. Asked me to take his food tray out of the room. Difficulty with naming and repetition. Unable to access cognition/memory 2/2 aphasia. Attention intact. No neglect. CN: Visual dotson full. Pt refused fundoscopic exam. PERRLA OU. EOMI without nystagmus. Decreased sensation in right face. Right facial droop. Hearing intact to conversation. Uvula midline with symmetric palatal elevation. Shoulder shrug normal on the LUE, minimal on the RUE. Tongue midline. MOTOR: Decreased muscle bulk, increased tone in RUE/RLE. Holds RUE inwards in contracture, cannot wiggle fingers in right hand. Did not access RUE further given R humeral fracture. RLE antigravity with slow drift to bed, difficulty wiggling toes. LUE/LLE antigravity without drift to bed. REFLEXES: 2+ at R biceps, 1+ R patella and trace L biceps/patella/Achilles bilaterally. Toes mute bilaterally. SENSORY: Decreased to LT, vibration and temperature in the RUE/RLE, normal in the LUE/LLE. COORDINATION: No dysmetria or ataxia on observed movements (would not cooperate with formal testing) GAIT: unable to assess 2/2 fall risk (minimal ambulation at baseline 2/2 stroke) Results & Data Vital Signs (Past 12 Hours) Vital Signs Temp Pulse Pulse Resp BP Pulse Ox 03/17/19 07:00 36.4 C L 90 18 106/64 96 03/17/19 04:00 36.8 C 89 20 115/69 96 03/17/19 03:27 95 H 03/17/19 00:31 36.7 C 103 H 20 104/66 95 03/16/19 22:19 98 H PG Care Time/CCT Total # of Minutes Spent Total Time Spent with Patient: Total time spent is greater than 50% in coordination of care (as documented) at patient's floor/unit and/or counseling patient: Coding Level of Care Code 67861 Subseq Hosp Care Lvl 3 Diagnoses History of seizures Z87.898 History of alcoholism F10.21 Hypertension I10 H/O ischemic left MCA stroke Z86.73
--- NOTE | 2019-03-17 10:02 | Nephrology Consultation ---
Date of Consultation March 17, 2019 Assessment & Plan (1) ARF (acute renal failure): Non-oliguric. No emergent indication for dialysis. Volume status appears acceptable. I agree with some gentle IV hydration as being provided. Suggest switching to a balanced IV fluid. Clinical presentation is suggestive of pre- renal etiology complicated by ACEi use. Lisinopril has been appropriately held. BP is acceptable. Medications at this time are appropriate for kidney function. Depakote level pending. PVR was 150 ml which is being monitored. Renal US is pending. UA +protein with acellular microscopy on admission. A CK level has also been requested. May consider holding or dose reducing atorvastatin for renal dysfunction. If kidney function continues to decline, may also consider reducing gabapentin to once daily dosing. Nephrology will follow up results of renal US, urine studies, and CK level. No additional changes at this time. Please document accurate I/O's, monitor PVR, and repeat a metabolic profile tomorrow AM. (2) History of seizures: (3) Hypertension: (4) H/O ischemic left MCA stroke: History of Present Illness Reason for Consultation: RAVEN Requesting Physician: Alma Hull MD Attending Physician: Alma Hull MD History of Present Illness Mr. Jim Gardner is a 53-year-old male seen in consultation for evaluation of acute kidney injury. Jim denies ever previously being evaluated by a kidney doctor. He was very agitated and provided minimal history while also refusing to answer most of my questions. He also refused physical exam. Medical records were reviewed in detail. I discussed the case with Dr. Figueroa. Medical history is notable for multiple CVA, residual right-sided weakness, as well as some expressive aphasia. There is an extensive history of polysubstance abuse. The patient has suffered from recurrent seizures. He has been noncompliant with medications for management of seizure disorder resulting in multiple emergency room visits due to breakthrough seizures. Jim was admitted to [facility] on March 15 after suffering a fall from his wheelchair subsequent to a breakthrough seizure. Patient sustained injuries including a fracture to his right humerus. The fracture is not displaced it has been immobilized for healing. In addition to his other medical problems, the patient suffers from chronic pain for which he follows in the pain management clinic. In 2018, he was diagnosed with an idiopathic cardiomyopathy. Subsequent evaluation in 2018 demonstrated improvement in left ventricular function. At that time the patient's LV EF was approximately 45%. There was no significant valvular heart disease. Complicating the patient's other medical comorbidities is a significant history of psychiatric illness. This includes severe depression as well as a history of prior suicidal attempts. Psychiatric consultation has been obtained during the current hospitalization due to comments suggesting self harm. The patient has been hemodynamically stable. He has not had IV contrast exposure or received any NSAIDS. Depakote has been restarted for seizures. The patient was started on lisinopril, metoprolol, as well as atorvastatin. Creatinine had been normal at 1.27 mg/dL on admission. Mild hypokalemia noted. Allergies Allergy/AdvReac Type Severity Reaction Status Date / Time codeine Allergy Mild HIVES Verified 03/15/19 12:01 Home Medications Home Medications Medication Instructions Recorded Confirmed Type tramadol 50 mg PO TID PRN #0 tab 12/10/18 03/15/19 Rx Patient History Medical History Anemia (Chronic) ARF (acute renal failure) (02/03/14) Arterial ischemic stroke, MCA (middle cerebral artery), left, chronic (Resolved) Back pain (Chronic) Breakthrough seizure (Resolved) Cardiomyopathy (Chronic Unknown) "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% " On 08/13/12 05:02 J Luis Torres wrote "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% " Cervical radiculopathy at C7 (Chronic) Change in mental status (Resolved) Hemiparesis (Resolved Unknown) "right hemiparesis " On 08/13/12 00:17 Ham Jacobs wrote "right hemiparesis " Hemorrhagic shock (Resolved) Hyperammonemia (Resolved) Hyperkalemia (Resolved) Hypomagnesemia (Resolved) Hyponatremia (Resolved Unknown) Hypoxia (Resolved 02/22/14) Ischemic stroke (Chronic Unknown) "left MCA received TPA echo- LV mural thrombus residual right hemiparesis + aphasia " Left shoulder pain (Resolved) Leg fracture, right (Resolved) Metabolic encephalopathy (Resolved 03/21/14) Seizure (Resolved) Sepsis (Unknown) Shoulder pain (Resolved) Status epilepticus, 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) Suicide attempt (Chronic Unknown) Family History Father No pertinent family history Social History Preferred Language: Kazakh Communication Ability: Impaired [employer]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 he denies pain. ) Physical Exam Physical Exam: patient refused. general impression is that he is thin and non- edematous. he appeared comfortable and well hydrated. he is is breathing comfortably. sclera are not injected and non icteric. Results & Data Vital Signs (Past 12 Hours) Vital Signs Temp Pulse Pulse Resp BP Pulse Ox 03/17/19 07:00 36.4 C L 90 18 106/64 96 03/17/19 04:00 36.8 C 89 20 115/69 96 03/17/19 03:27 95 H 03/17/19 00:31 36.7 C 103 H 20 104/66 95 03/16/19 22:19 98 H Laboratory Results Laboratory Results - last 24 hr 03/17/19 03/17/19 03/17/19 05:51 05:51 09:35 WBC 17.65 H RBC 4.24 L Hgb 13.8 L Hct 38.0 L MCV 89.6 MCH 32.5 MCHC 36.3 H RDW Std Deviation 40.5 RDW Coeff of Yadira 12.4 Plt Count 218 MPV 10.3 Sodium 133 L Potassium 3.2 L Chloride 98 Carbon Dioxide 23 Anion Gap 12.0 H BUN 51 H D Creatinine 3.55 H D Est Cr Clr Drug Dosing 21.6 Est GFR ( Amer) 21.3 Est GFR (Non-Af Amer) 18.4 BUN/Creatinine Ratio 14.3 Glucose 106 H Calcium 8.3 L Total Bilirubin Direct Bilirubin AST ALT Alkaline Phosphatase Ammonia Creatine Kinase Pending CK-MM (CK-3) Pending CK-MB (CK-2) Pending CK-BB (CK-1) Pending Creatine Kinase Interp Pending Total Protein Albumin Free Valproic Acid Pending Total Valproic Acid Pending 03/17/19 03/17/19 09:43 09:43 WBC RBC Hgb Hct MCV MCH MCHC RDW Std Deviation RDW Coeff of Yadira Plt Count MPV Sodium Potassium Chloride Carbon Dioxide Anion Gap BUN Creatinine Est Cr Clr Drug Dosing Est GFR ( Amer) Est GFR (Non-Af Amer) BUN/Creatinine Ratio Glucose Calcium Total Bilirubin 0.7 Direct Bilirubin 0.2 AST 16 ALT 16 Alkaline Phosphatase 78 Ammonia 31.5 Creatine Kinase CK-MM (CK-3) CK-MB (CK-2) CK-BB (CK-1) Creatine Kinase Interp Total Protein 6.5 Albumin 3.7 Free Valproic Acid Total Valproic Acid PG Care Time/CCT Total # of Minutes Spent Total Time Spent with Patient: Total time spent is greater than 50% in coordination of care (as documented) at patient's floor/unit and/or counseling patient: Coding Level of Care Code 20721 Inpt Consult Level 4 Diagnoses ARF (acute renal failure) N17.9 History of seizures Z87.898 Hypertension I10 H/O ischemic left MCA stroke Z86.73
[2019-03-17 10:15] LABS: Albumin Level 3.7 gm/dl (3.4-5.0); Bilirubin Direct 0.2 mg/dl (0-0.2); Bilirubin,Total 0.7 mg/dl (0.2-1); Total Protein 6.5 gm/dl (6.4-8.2)
[2019-03-17] MEDS: DIVALPROEX EXTENDED RELEASE 500 MG TAB PO SCH (10:42)
[2019-03-17] MEDS: ASPIRIN 81 MG ECTAB PO SCH (10:42)
[2019-03-17] MEDS: METOPROLOL SUCC 25MG EXT REL TAB PO SCH (10:42)
[2019-03-17] MEDS: ATORVASTATIN 40 MG TAB PO SCH (10:42)
[2019-03-17] MEDS: GABAPENTIN 300 MG CAP PO SCH ×2 (10:42→20:25)
[2019-03-17] MEDS: NORMOSOL-R 1,000 ML IV SCH ×2 (11:13→23:05)
[2019-03-17 11:56] LABS: Appearance Urine Cloudy (Clear); Bacteria Urine Automated Negative (Negative); Bilirubin Urine Negative (Negative); Blood Urine Negative (Negative); Color Urine Yellow; Glucose Urine UA Negative (Negative); Ketones Urine Trace (Negative); Leukocyte Esterase Urine Negative (Negative); Nitrite Urine Negative (Negative); Protein Urine Negative (Negative); RBC Urine Automated 0-4 /hpf (0-4); Specific Gravity Urine 1.011 (1.000-1.030); Urobilinogen Urine Negative (Negative)
--- NOTE | 2019-03-17 12:31 | Ultrasound Report ---
ULTRASOUND KIDNEYS AND BLADDER CLINICAL HISTORY: Acute renal insufficiency. COMPARISON STUDY: Renal ultrasound dated 11/30/2018. TECHNIQUE: Real-time, grayscale, and color flow sonography of the kidneys and bladder is performed. I mages are reviewed in the transverse and longitudinal planes. FINDINGS: Kidneys: The kidneys are normal in size and echotexture. The right kidney measures 10.4 cm in length and the left kidney measures 9.8 cm in length. There is no hydronephrosis. No shadowing renal calculi are identified. There is no sonographic evidence of contour deforming renal mass lesion. No perineph rupali fluid is identified. Bladder: The bladder is normal in appearance. Bilateral ureteral jets were seen. IMPRESSION: Unremarkable sonographic assessment of the kidneys and bladder. ACT 112: Negative or not required by law. Electronically signed by: Leon Gamino M.D. 03/17/2019 12:30 PM
[2019-03-17 14:55] LABS: Marijuana Quant, GCMS Urine 3300 ng/mL (<5)
--- NOTE | 2019-03-17 16:51 | Hospitalist Progress Note ---
Date of Service March 17, 2019 Assessment & Plan (1) Seizure disorder: Presented with a witnessed generalized seizure which resulted in a right humerus fracture when he fell out of his wheelchair Has had a seizure disorder for years and has had a significant left MCA territory stroke which puts him at risk for seizure Actually had not been taking his Keppra per caregiver. Patient has been refusing all his meds at home he states in an effort to try to given suicidal ideations 1 gm Keppra given in ED Seen by neurology here, EEG shows some brief epileptic focus-Neurology recommends Depakote as it has less effect on mood than Keppra No further seizures since admission Depakote was loaded at 650 mg IV x1 -continues on Depakote ER 500 mg p.o. daily in the morning -Check Depakote level in the morning-total/free depakote level ordered by Neuro but is send out and may take a while to come back -ordered valproic acid level for in AM -PRN Ativan (2) ARF (acute renal failure): Creatinine continues to trend up to 3.55 from 1.2 on admission after starting lisinopril and with poor p.o. intake, refused to get IVFs Is clearly prerenal, FeNa 0.7%, BUN way up Renal US without hydro or obstruction, PVR 150mL Check CPK as recently started statin too Pt now agreeable to IVFs on 03/17--> giving Normosol at 125mL/hr -Follow BMP in the morning -continue to hold lisinopril and would not restart -renally dose other meds-gabapentin no more than 300mg bid as it is now -follow urine output -appreciate Nephrology consultation -no urgent indication for HD at this time (3) Hypokalemia: Low upon admission and was replaced Remains mildly low but now in setting of renal failure as above Replace with only KCl 20meq po x 1 today given significnat RAVEN -Follow BMP (4) Fracture, humerus closed: Right humeral neck fracture secondary to seizure and fall out of wheelchair CT of shoulder shows no dislocation or intra-articular fracture Orthopedics consultation appreciated Recommend sling for 3 to 4 weeks and follow-up with orthopedics as an outpatient Pain control as needed (5) CVA, old, dysarthria: With a history of 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, dysarthria With chronic spastic pain Has a previous history of LV thrombus secondary to severe cardiomyopathy which is now resolved--thrombus was treated with anticoagulation a couple of years ago Given his history of multiple CVAs-added aspirin, high intensity statin as he was not on these at the time of admission -Needs improved blood pressure control-added lisinopril back but now with RAVEN, have since discontinued lisinopril and added Toprol-XL 25 mg daily Neurology also suggested adding gabapentin for his neuropathy and chronic pain and trying to taper him off tramadol-he says he is agreeable to this -Supportive care PT/OT consult (6) Hemiparesis, right: secondary to old CVA, is wheelchair bound. As above (7) Hypertension: Blood pressures significantly elevated upon first day of admission and are now much improved with starting Toprol-XL -Continue Toprol-XL 25 mg once daily Hydralazine PRN (8) Hypoxia: To low of 79% on room air in the ED after seizure. responded to supplemental oxygen. Likely due to post-ictal state But may have aspirated causing a chemical pneumonitis. No indication of pneumonia at this time. No longer requiring any oxygen (9) Major depression, recurrent: Severe, with suicidal ideations Seen by psychiatry-recommend starting either Remeron or Seroquel or SSRI-they will continue to follow Patient is agreeable to this-started Remeron 7.5 mg p.o. at bedtime as he took this during last admission and had improvement (10) Polyneuropathy: Started gabapentin 300 mg p.o. 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 When I saw him he was calm, not agitated. Reported pain in his right shoulder if he tried to move his RUE by using his left hand to manipulate his rt arm. He denied any other concerns. He reports he was not able to sleep much last night as he had constant interruptions for vital signs, etc. Tele reviewed and showed NSR, ST, PVCs, rates 80s-100s Discussed his case with Psychiatry today Review of Systems Review of Systems: All systems reviewed & are unremarkable except as noted in HPI & below Physical Exam Constitutional: WD/WN, vitals as above + ill appearing (Chronically) and + thin; no acute distress Eyes: + anicteric sclerae Neck: trachea midline, no thyromegaly Respiratory: normal respiratory effort, lungs clear to auscultation Cardiovascular: RRR, no murmur, no edema Chest (Breasts): Chest: normal inspection of chest Gastrointestinal (Abdomen): normal bowel sounds, soft, nontender, no hepatosplenomegaly Musculoskeletal: Extremities: + extremities abnormal to inspection (Right upper extremity in sling), no cyanosis and no clubbing Skin: no rashes, warm and dry Neurologic: + focal motor deficit (Right-sided hemiparesis) and awake Psychiatric: Orientation: alert, oriented to person, oriented to place and cooperative Eye Contact: good eye contact Speech: + abnormal rate/rhythm/volume of speech (Dysarthria, expressive aphasia) Affect: + depressed affect Lymphatic: no lymphedema Results & Data ([facility]) Vital Signs (Past 12 Hours) Vital Signs Temp Pulse Resp BP Pulse Ox 03/17/19 16:00 36.5 C 84 18 124/61 95 03/17/19 11:00 36.8 C 87 18 114/70 96 03/17/19 07:00 36.4 C L 90 18 106/64 96 Laboratory Results 03/17/19 03/17/19 03/17/19 Range/Units Unknown Unknown Unknown WBC (4.8-10.8) K/uL RBC (4.7-6.1) M/uL Hgb (14.0-18.0) g/dL Hct (42-52) % MCV (80-100) fL MCH (25-34) pg MCHC (32-36) g/dL RDW Std Deviation (36.4-46.3) fL RDW Coeff of Yadira (11.5-14.5) % Plt Count (130-400) K/uL MPV (7.4-10.4) fL Sodium (136-145) mmol/L Potassium (3.5-5.1) mmol/L Chloride (98-107) mmol/L Carbon Dioxide (21-32) mmol/L Anion Gap (3-11) BUN (7-18) mg/dl Creatinine (0.6-1.4) mg/dl Est Cr Clr Drug Dosing ml/min Est GFR ( Amer) Est GFR (Non-Af Amer) BUN/Creatinine Ratio (10-20) Glucose (70-99) mg/dl Calcium (8.5-10.1) mg/dl Total Bilirubin (0.2-1) mg/dl Direct Bilirubin (0-0.2) mg/dl AST (15-37) U/L ALT (12-78) U/L Alkaline Phosphatase (45-117) U/L Ammonia (11-32) umol/L Creatine Kinase CK-MM (CK-3) CK-MB (CK-2) CK-BB (CK-1) Creatine Kinase Interp Total Protein (6.4-8.2) gm/dl Albumin (3.4-5.0) gm/dl Urine Color Yellow Urine Appearance Cloudy A (Clear) Urine pH 5.0 (4.5-7.5) Ur Specific [place] 1.011 (1.000-1.030) Urine Protein Negative (Negative) Urine Glucose (UA) Negative (Negative) Urine Ketones Trace H (Negative) Urine Blood Negative (Negative) Urine Nitrite Negative (Negative) Urine Bilirubin Negative (Negative) Urine Urobilinogen Negative (Negative) Ur Leukocyte Esterase Negative (Negative) Urine WBC (Auto) 1-5 (0-5) /hpf Urine RBC (Auto) 0-4 (0-4) /hpf U Hyaline Cast (Auto) 1-5 (0-5) /lpf U Epithel Cells (Auto) 10-20 H (0-5) /lpf Urine Bacteria (Auto) Negative (Negative) Ur Random Creatinine 64.8 mg/dl Ur Random Sodium 17 mmol/L Free Valproic Acid Total Valproic Acid U Marijuana THC Carboxy (<5) ng/mL Drug Screen Comment 03/17/19 03/17/19 03/17/19 Range/Units 09:43 09:43 09:35 WBC (4.8-10.8) K/uL RBC (4.7-6.1) M/uL Hgb (14.0-18.0) g/dL Hct (42-52) % MCV (80-100) fL MCH (25-34) pg MCHC (32-36) g/dL RDW Std Deviation (36.4-46.3) fL RDW Coeff of Yadira (11.5-14.5) % Plt Count (130-400) K/uL MPV (7.4-10.4) fL Sodium (136-145) mmol/L Potassium (3.5-5.1) mmol/L Chloride (98-107) mmol/L Carbon Dioxide (21-32) mmol/L Anion Gap (3-11) BUN (7-18) mg/dl Creatinine (0.6-1.4) mg/dl Est Cr Clr Drug Dosing ml/min Est GFR ( Amer) Est GFR (Non-Af Amer) BUN/Creatinine Ratio (10-20) Glucose (70-99) mg/dl Calcium (8.5-10.1) mg/dl Total Bilirubin 0.7 (0.2-1) mg/dl Direct Bilirubin 0.2 (0-0.2) mg/dl AST 16 (15-37) U/L ALT 16 (12-78) U/L Alkaline Phosphatase 78 (45-117) U/L Ammonia 31.5 (11-32) umol/L Creatine Kinase Pending CK-MM (CK-3) Pending CK-MB (CK-2) Pending CK-BB (CK-1) Pending Creatine Kinase Interp Pending Total Protein 6.5 (6.4-8.2) gm/dl Albumin 3.7 (3.4-5.0) gm/dl Urine Color Urine Appearance (Clear) Urine pH (4.5-7.5) Ur Specific [place] (1.000-1.030) Urine Protein (Negative) Urine Glucose (UA) (Negative) Urine Ketones (Negative) Urine Blood (Negative) Urine Nitrite (Negative) Urine Bilirubin (Negative) Urine Urobilinogen (Negative) Ur Leukocyte Esterase (Negative) Urine WBC (Auto) (0-5) /hpf Urine RBC (Auto) (0-4) /hpf U Hyaline Cast (Auto) (0-5) /lpf U Epithel Cells (Auto) (0-5) /lpf Urine Bacteria (Auto) (Negative) Ur Random Creatinine mg/dl Ur Random Sodium mmol/L Free Valproic Acid Pending Total Valproic Acid Pending U Marijuana THC Carboxy (<5) ng/mL Drug Screen Comment 03/17/19 03/17/19 03/15/19 Range/Units 05:51 05:51 10:25 WBC 17.65 H (4.8-10.8) K/uL RBC 4.24 L (4.7-6.1) M/uL Hgb 13.8 L (14.0-18.0) g/dL Hct 38.0 L (42-52) % MCV 89.6 (80-100) fL MCH 32.5 (25-34) pg MCHC 36.3 H (32-36) g/dL RDW Std Deviation 40.5 (36.4-46.3) fL RDW Coeff of Yadira 12.4 (11.5-14.5) % Plt Count 218 (130-400) K/uL MPV 10.3 (7.4-10.4) fL Sodium 133 L (136-145) mmol/L Potassium 3.2 L (3.5-5.1) mmol/L Chloride 98 (98-107) mmol/L Carbon Dioxide 23 (21-32) mmol/L Anion Gap 12.0 H (3-11) BUN 51 H D (7-18) mg/dl Creatinine 3.55 H D (0.6-1.4) mg/dl Est Cr Clr Drug Dosing 21.6 ml/min Est GFR ( Amer) 21.3 Est GFR (Non-Af Amer) 18.4 BUN/Creatinine Ratio 14.3 (10-20) Glucose 106 H (70-99) mg/dl Calcium 8.3 L (8.5-10.1) mg/dl Total Bilirubin (0.2-1) mg/dl Direct Bilirubin (0-0.2) mg/dl AST (15-37) U/L ALT (12-78) U/L Alkaline Phosphatase (45-117) U/L Ammonia (11-32) umol/L Creatine Kinase CK-MM (CK-3) CK-MB (CK-2) CK-BB (CK-1) Creatine Kinase Interp Total Protein (6.4-8.2) gm/dl Albumin (3.4-5.0) gm/dl Urine Color Urine Appearance (Clear) Urine pH (4.5-7.5) Ur Specific [place] (1.000-1.030) Urine Protein (Negative) Urine Glucose (UA) (Negative) Urine Ketones (Negative) Urine Blood (Negative) Urine Nitrite (Negative) Urine Bilirubin (Negative) Urine Urobilinogen (Negative) Ur Leukocyte Esterase (Negative) Urine WBC (Auto) (0-5) /hpf Urine RBC (Auto) (0-4) /hpf U Hyaline Cast (Auto) (0-5) /lpf U Epithel Cells (Auto) (0-5) /lpf Urine Bacteria (Auto) (Negative) Ur Random Creatinine mg/dl Ur Random Sodium mmol/L Free Valproic Acid Total Valproic Acid U Marijuana THC Carboxy 3300 H (<5) ng/mL Drug Screen Comment SEE NOTE PG Care Time/CCT Total # of Minutes Spent Total Time Spent with Patient: Total time spent is greater than 50% in coordination of care (as documented) at patient's floor/unit and/or counseling patient: Coding Level of Care Code 03837 Subseq Hosp Care Lvl 3 Diagnoses Seizure disorder G40.909 ARF (acute renal failure) N17.9 Hypokalemia E87.6 Fracture, humerus closed S42.309A CVA, old, dysarthria I69.322 Hemiparesis, right G81.91 Hypertension I10 Hypoxia R09.02 Major depression, recurrent F33.9 Polyneuropathy G62.9 Cardiomyopathy I42.9 DVT prophylaxis Z29.9
[2019-03-17] MEDS: TRAMADOL HCL 50 MG TABLET PO PRN (20:21)
[2019-03-17] MEDS: MIRTAZAPINE TAB 15 MG TAB PO SCH (20:24)
[2019-03-18] MEDS: NORMOSOL-R 1,000 ML IV SCH ×2 (08:06→16:15)
[2019-03-18] MEDS: ASPIRIN 81 MG ECTAB PO SCH (08:07)
[2019-03-18] MEDS: PANTOprazole 40 MG TAB PO SCH (08:07)
[2019-03-18] MEDS: GABAPENTIN 300 MG CAP PO SCH ×2 (08:07→20:17)
[2019-03-18] MEDS: ENOXAPARIN INJ 40 MG/0.4 ML SYR SQ SCH (08:07)
[2019-03-18] MEDS: DIVALPROEX EXTENDED RELEASE 500 MG TAB PO SCH (08:07)
[2019-03-18] MEDS: ATORVASTATIN 40 MG TAB PO SCH (08:07)
[2019-03-18] MEDS: METOPROLOL SUCC 25MG EXT REL TAB PO SCH (08:07)
[2019-03-18 08:31] LABS: Albumin Level 3.3 gm/dl (3.4-5.0); BUN Creatinine Ratio 26.8 (10-20); Calcium 8.5 mg/dl (8.5-10.1); Creatinine Clr Calc Pharmacy 43.6 ml/min; Est GFR (African American) 49.7; Est GFR (Non-African American) 42.9; Phosphorus 2.9 mg/dl (2.5-4.9); Potassium 3.3 mmol/L (3.5-5.1)
--- NOTE | 2019-03-18 09:36 | Nephrology Progress Note ---
Date of Service March 18, 2019 Assessment & Plan (1) ARF (acute renal failure): -- Recovery phase of ATN. Benign urine sediment. CPK ~ 300. Creatinine has improved from 3.5 to 1.7 off WILFREDO inhibitor while receiving IV hydration -- Patient remains clinically volume contracted. Continue IV hydration w/ Normosol at 125 cc/hr -- Avoid WILFREDO inhibitor. Will order renal artery doppler (discussed w/ patient this morning. He has agreed to the study) -- Serum potassium is mildly low. Since patient is avoiding oral feeding (medications?) will order KCl 20 mEq IV x one. Will recheck PRP in am (2) Hypertension: -- Avoid WILFREDO/ARB due to RAVEN. Will check renal artery doppler -- Blood pressure is well controlled w/ current medical regimen. Continue Toprol and PRN Hydralazine (3) Major depression, recurrent: -- Psychiatry consultation reviewed this am. Patient now on Remeron. He may require SNF. Await further input (4) History of seizures: -- Neurology consultation reviewed. Poor adherance w/ medical therapy. Now on Depakote and Gabapentin (5) H/O ischemic left MCA stroke: (6) Humerus fracture: -- R arm immobilized in sling. Awaiting Orthopedic recommendations Subjective Mr. Gardner was seen & examined in his hospital room this morning. He was visiting w/ a friend. He declined ordering breakfast or lunch this morning as he indicated that he is severely depressed and wants to . Mr. Gardner is tolerating IV hydration without LE swelling or dyspnea. He denies fever, flank pain, gross hematuria or difficulty voiding. Review of Systems Constitutional: + weakness; no fever Eyes: no worsening vision and no problem reported Ear, Nose, Mouth, Throat: no problem reported Respiratory: no cough and no dyspnea Cardiovascular: no chest pain, no palpitations and no edema Gastrointestinal: no abdominal pain, no nausea, no vomiting and no diarrhea/loose stools Genitourinary: no dysuria, no urinary hesitancy and no hematuria Musculoskeletal: no back pain Integumentary: no rash Neurologic: no falls, no dizziness and no confusion Physical Exam Constitutional: + thin and + frail appearing Eyes: PERRL, conjunctivae normal, anicteric sclerae ENMT: external ear and nose normal, oropharynx normal Neck: trachea midline, no thyromegaly Respiratory: normal respiratory effort, lungs clear to auscultation Cardiovascular: RRR, no murmur, no edema Gastrointestinal (Abdomen): normal bowel sounds, soft, nontender, no hepatosplenomegaly Musculoskeletal: Extremities: no cyanosis Skin: no rashes, warm and dry Neurologic: awake; not confused Results & Data Vital Signs (Past 12 Hours) Vital Signs Temp Pulse Pulse Resp BP Pulse Ox 03/18/19 08:00 66 03/18/19 07:44 36.7 C 65 18 138/74 95 03/18/19 03:51 36.5 C 70 18 125/70 96 03/18/19 01:29 71 03/17/19 22:26 36.7 C 72 18 126/74 95 Laboratory Results Laboratory Tests 03/17/19 03/18/19 05:51 07:29 WBC 17.65 H Hgb 13.8 L Hct 38.0 L Plt Count 218 Sodium 138 Potassium 3.3 L Chloride 105 Carbon Dioxide 23 BUN 47 H Creatinine 1.76 H D Glucose 66 L Calcium 8.5 Phosphorus 2.9 Total Creatine Kinase 352 H Albumin 3.3 L PG Care Time/CCT Total # of Minutes Spent Total Time Spent with Patient: Total time spent is greater than 50% in coordination of care (as documented) at patient's floor/unit and/or counseling patient: Coding Level of Care Code 15876 Subseq Hosp Care Lvl 3 Diagnoses ARF (acute renal failure) N17.9 Hypertension I10 Major depression, recurrent F33.9 History of seizures Z87.898 H/O ischemic left MCA stroke Z86.73 Humerus fracture S42.309A
--- NOTE | 2019-03-18 09:59 | Neurology Progress Note ---
Date of Service March 18, 2019 Assessment & Plan (1) Seizure disorder: Recent breakthrough seizure in a patient with a known history of seizure disorder. Patient seizures are likely related to his large, chronic, left MCA territory infarct. Noncompliance with his anticonvulsant regimen noted. Although patient was given Keppra initially in the emergency department, this medication has been discontinued in favor of Depakote which may be more favorable in terms of his mood. Patient's will need to have his transaminases and ammonia levels monitored going forward, recent AST/ALT/ammonia levels within normal limits. Recent valproic acid level 25, a bit low. Free valproic acid and total valproic acid levels are pending. This patient's last CT of the head was done in January 2017. If he were to have another breakthrough seizure, however, I would recommend obtaining a CT of the head in that context. At this point, continue with Depakote extended release 500 mg/day. I will review results of the additional valproic acid levels when available and anticipate increasing his dosage of Depakote at that time. Patient may follow-up with me or our advanced radio program checker in 2 to 4 weeks. (2) H/O ischemic left MCA stroke: History of chronic, large, left MCA territory infarct with a chronic residual right hemiparesis, aphasia, and seizure disorder as above. Patient appears to be back at his neurological baseline this morning. I agree that he should be on medication for secondary stroke risk reduction including daily low- dose aspirin, and atorvastatin. His blood pressure appears appropriate without an antihypertensive. Subjective Follow-up for seizure The patient is a 53-year-old male who is known to me. He has a history of a chronic, large, left MCA territory infarct with chronic residual right hemiparesis, aphasia, and seizure disorder. He presented with a witnessed seizure prior to his evaluation in the emergency department, complicated by a closed fracture of the right humerus. He apparently slid out of his wheelchair and injured his right arm in the context of his seizure. He has been noncompliant with his anticonvulsant regimen. Past medical history also notable for past medical history of cocaine/heroin abuse, cardiomyopathy, alcohol abuse, hypertension, hyperlipidemia, anxiety/depression with prior suicide attempts, and chronic pain. Patient has been evaluated by Dr. Figueroa, neurology, during his current hospitalization. An EEG completed on March 15, 2019 revealed continuous left hemispheric slowing and a right temporal sharp/epilept iform abnormality. Although he was given IV Keppra during his initial assessment in the emergency department, this medication has been discontinued in favor of Depakote which may be more appropriate from a mood standpoint for this patient. He has been seen by psychiatry during this admission as well and it looks like a retrial of an SSRI and/or Seroquel has been considered. These medications have not been started yet although he does have a prescription for mirtazapine at bedtime currently. In addition to Depakote for his seizures, he is also receiving gabapentin for chronic pain. A valproic acid level was 25 this morning. Currently, the patient does not have any specific complaints although he is partially aphasic which limits his ability to communicate and interact to a degree. His roommate is at bedside. He denies any headache or new focal neurological deficit although he does endorse chronic right sided weakness, arm greater than leg, as well as chronic difficulty with speech and language comprehension attributed to his old stroke. No further seizures have been observed during his hospitalization. Review of Systems Constitutional: no fever and no chills Neurologic: as per Subjective / HPI, + localized weakness and + abnormal speech Physical Exam Physical Exam: The patient is alert and oriented to person only. Attention and concentration normal. Patient exhibits difficulty with object naming as well as language comprehension although he is able to follow simple commands. Visual dotson full to confrontation. Visual acuity normal. Pupils equal round reactive to light and accommodation. Eye movements normal. There is a right lower facial droop noted. Hearing intact. Palate elevates to midline. Tongue protrudes to midline. Sensation grossly intact for all 4 limbs. Deep tendon reflexes increased for the right arm and leg. Right plantar response upgoing, left plantar response downgoing. Right upper extremity 0 out of 5 strength, flaccid. Right lower extremity strength 2-3 out of 5. Normal strength for the left arm and leg. No abnormal movements observed. Results & Data Vital Signs (Past 12 Hours) Vital Signs Temp Pulse Pulse Resp BP Pulse Ox 03/18/19 08:00 66 03/18/19 07:44 36.7 C 65 18 138/74 95 03/18/19 03:51 36.5 C 70 18 125/70 96 03/18/19 01:29 71 03/17/19 22:26 36.7 C 72 18 126/74 95 PG Care Time/CCT Total # of Minutes Spent Total Time Spent with Patient: Total time spent is greater than 50% in co ordination of care (as documented) at patient's floor/unit and/or counseling patient: Coding Level of Care Code 27727 Subseq Hosp Care Lvl 2 Diagnoses Seizure disorder G40.909 H/O ischemic left MCA stroke Z86.73
[2019-03-18] MEDS: POTASSIUM CHLORIDE / WTR 10 MEQ/100 ML PLCT IV SCH ×2 (10:28→11:38)
--- NOTE | 2019-03-18 11:55 | Ultrasound Report ---
DOPPLER ULTRASOUND OF THE RENAL ARTERIES CLINICAL HISTORY: Acute renal insufficiency in the setting of WILFREDO inhibitor therapy. COMPARISON STUDY: Renal ultrasound dated 03/17/2019. TECHNIQUE: Doppler sonography of the renal arteries was performed to assess renal artery stenosis. Im ages are reviewed in the transverse and longitudinal planes. Examination is suboptimal due to lack of patient cooperation. FINDINGS: The kidneys appear normal in size and echotexture. Right kidney measures 9.5 cm in length and the lef t kidney measures 10.5 cm in length. There is no hydronephrosis. On the right, intrarenal arterial resistive in the midpole measures 0.65. Intrarenal arterial wavefor ms show slightly diminished upstroke. Only the distal right renal artery wasn't visualized. Velocitie s in the distal right renal artery measure up to 88 cm/s. The right renal vein is patent. On the left, intrarenal arterial resistive indices range from 0.61 to 0.65. Intrarenal arterial wave forms are normal with brisk upstrokes. Only the distal left renal artery was visualized. Velocities w ithin the distal renal artery measure up to 40 cm/s The left renal vein is patent. The abdominal aorta is patent. Velocities within the abdominal aorta measure up to 132 cm/s. IMPRESSION: Limited examination as above with no sonographic evidence of renal artery stenosis. The r enal arteries were incompletely visualized. ACT 112: Negative or not required by law. Electronically signed by: Leon Gamino M.D. 03/18/2019 11:54 AM
--- NOTE | 2019-03-18 14:12 | Psychiatric Progress Note ---
Date of Service March 18, 2019 Impression / Recommendations Impression 53 yo male with complex medical history including multiple strokes and seizures, now with arm fx, made suicidal statements in the context of pain though history since November suggests ongoing chronic low mood and recurrent suicidal statements. He has been resistant to care in [place] up to this point, improving with hydration and med compliance. I would not resume SSRI or Seroquel at this time, if needed/backslides would titrate Remeron in 7.5 mg increments. Defer to primary team. Interval History Chief Complaint "I'm feeling better, don't feel like that anymore". Review of Systems Notes reports sleep is improved, less pain Subjective Subjective Patient was seen & assessed and interval progress reviewed with liaison. Has been taking medication/accepting of treatment. Today appears brighter and denies SI. He has a stuffed bear for [employer]. Physical Exam Mental Examination alert, cooperative, speech baseline, no psychomotor retardation, thoughts more organized, no SI/HI/jarrett. I&J improved. Vital Signs (Past 24 Hours) Last Vital Signs Temp 36.8 C 03/18/19 11:40 Pulse 65 03/18/19 11:40 Resp 18 03/18/19 11:40 BP 157/83 H 03/18/19 11:40 Pulse Ox 96 03/18/19 11:40 Results & Data Laboratory Results Laboratory Results - last 24 hr 03/15/19 03/15/19 03/18/19 03:38 10:25 07:29 Sodium 138 Potassium 3.3 L Chloride 105 Carbon Dioxide 23 Anion Gap 11.0 BUN 47 H Creatinine 1.76 H D Est Cr Clr Drug Dosing 43.6 Est GFR ( Amer) 49.7 Est GFR (Non-Af Amer) 42.9 BUN/Creatinine Ratio 26.8 H Glucose 66 L Calcium 8.5 Phosphorus 2.9 Total Creatine Kinase 352 H Albumin 3.3 L Valproic Acid Levetiracetam < 1.0 L U Marijuana THC Carboxy 3300 H Drug Screen Comment SEE NOTE 03/18/19 07:29 Sodium Potassium Chloride Carbon Dioxide Anion Gap BUN Creatinine Est Cr Clr Drug Dosing Est GFR ( Amer) Est GFR (Non-Af Amer) BUN/Creatinine Ratio Glucose Calcium Phosphorus Total Creatine Kinase Albumin Valproic Acid 25 L Levetiracetam U Marijuana THC Carboxy Drug Screen Comment Current Inpatient Medications Current Inpatient Medications: Current Inpatient Medications Acetaminophen (Tylenol) 650 mg PO Q4H PRN PRN Reason: mild pain or fever Stop: 04/14/19 08:13 Last Admin: 03/17/19 19:37 Dose: 650 mg Documented by: Albuterol (Ventolin 0.083% 2.5mg/3ml) 2.5 mg NEB Q4H PRN PRN Reason: Shortness Of Breath Or Wheezing Stop: 04/14/19 08:13 Aspirin ([facility]) [facility] [place]: 04/15/19 08:59 Last Admin: 03/18/19 08:07 Dose: 81 mg Documented by: Atorvastatin Calcium (Lipitor) [facility] Stop: 04/15/19 08:59 Last Admin: 03/18/19 08:07 Dose: 40 mg Documented by: Divalproex Sodium (Depakote Extended Release) 500 mg PO DAILY [facility] Stop: 04/15/19 08:59 Last Admin: 03/18/19 08:07 Dose: 500 mg Documented by: Enoxaparin Sodium (Lovenox) 40 mg SQ Q24H [facility] Stop: 04/14/19 08:59 Last Admin: 03/18/19 08:07 Dose: 40 mg Documented by: Gabapentin (Neurontin) 300 mg PO BID [facility] Stop: 04/14/19 20:59 Last Admin: 03/18/19 08:07 Dose: 300 mg Documented by: Hydralazine HCl (Hydralazine Hcl) 10 mg IV Q8H PRN PRN Reason: SBP>180 or DBP>110 Stop: 04/14/19 20:05 Last Admin: 03/15/19 20:48 Dose: 10 mg Documented by: Hydromorphone HCl (Dilaudid) 0.5 mg IV Q3H PRN PRN Reason: Severe Pain Stop: 03/29/19 08:13 Last Admin: 03/16/19 06:13 Dose: 0.5 mg Documented by: Lorazepam (Ativan) 2 mg in 4 mls @ 4 mls/min IV Q4H PRN PRN Reason: Breakthrough Seizures Stop: 04/14/19 08:13 Parenteral Electrolytes (Normosol-R) 1,000 mls @ 125 mls/hr IV .Q8H [facility] Stop: 04/16/19 10:44 Last Infusion: 03/18/19 10:28 Dose: 0 mls/hr Documented by: Metoprolol Succinate (Toprol Xl) 25 mg PO [facility] Stop: 04/15/19 09:44 Last Admin: 03/18/19 08:07 Dose: 25 mg Documented by: Mirtazapine (Remeron) 7.5 mg PO [facility] Stop: 04/15/19 20:59 Last Admin: 03/17/19 20:24 Dose: 7.5 mg Documented by: Ondansetron HCl (Zofran) 4 mg IV Q6H PRN PRN Reason: nausea or vomiting Stop: 04/14/19 08:13 Last Admin: 03/16/19 03:17 Dose: 4 mg Documented by: Pantoprazole Sodium (Protonix) 40 mg PO [facility] Stop: 04/14/19 08:59 Last Admin: 03/18/19 08:07 Dose: 40 mg Documented by: Tramadol HCl (Ultram) 50 mg PO Q4H PRN PRN Reason: Moderate Pain Stop: 04/14/19 08:13 Last Admin: 03/17/19 20:21 Dose: 50 mg Documented by:
[2019-03-18] MEDS: HydrALAZINE HCL 20 MG/ML VIAL IV PRN (20:05)
[2019-03-18] MEDS: TRAMADOL HCL 50 MG TABLET PO PRN (20:07)
[2019-03-18] MEDS: MIRTAZAPINE TAB 15 MG TAB PO SCH (20:15)
--- NOTE | 2019-03-18 23:29 | Hospitalist Progress Note ---
Date of Service March 18, 2019 Assessment & Plan (1) Seizure disorder: Presented with a witnessed generalized seizure which resulted in a right humerus fracture when he fell out of his wheelchair Has had a seizure disorder for years and has had a significant left MCA territory stroke which puts him at risk for seizure patient was not taking Keppra at home neurology recommends switching to Depakote due to less mood side effects continue Depakote 500mg daily -PRN Ativan valproic acid level 25 on 03/18 (2) ARF (acute renal failure): Creatinine continues to trend up to 3.55 from 1.2 on admission after starting lisinopril and with poor p.o. intake, refused to get IVFs likely prerenal, FeNa 0.7%, BUN way up, but some possible ATN as well since Cr teofilo Cr coming back down with IV fluids Cr 1.7 today, will repeat tomorrow making adequate urine, electrolytes stable discussed with Dr. Celeste, appreciate his input -continue to hold lisinopril and would not restart (3) Hypokalemia: Low upon admission and was replaced Remains mildly low but now in setting of renal failure as above K is 3.3 today Replace PO -Follow BMP (4) Fracture, humerus closed: Right humeral neck fracture secondary to seizure and fall out of wheelchair CT of shoulder shows no dislocation or intra-articular fracture Orthopedics consultation appreciated Recommend sling for 3 to 4 weeks and follow-up with orthopedics as an outpatient Pain control as needed (5) CVA, old, dysarthria: With a history of 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, dysarthria With chronic spastic pain Has a previous history of LV thrombus secondary to severe cardiomyopathy which is now resolved--thrombus was treated with anticoagulation a couple of years ago Given his history of multiple CVAs-added aspirin, high intensity statin as he was not on these at the time of admission -Needs improved blood pressure control-added lisinopril back but now with RAVEN, have since discontinued lisinopril and added Toprol-XL 25 mg daily Neurology also suggested adding gabapentin for his neuropathy and chronic pain and trying to taper him off tramadol-he says he is agreeable to this -Supportive care PT/OT consult (6) Hemiparesis, right: secondary to old CVA, is wheelchair bound. As above (7) Hypertension: Blood pressures significantly elevated upon first day of admission and are now much improved with starting Toprol-XL -Continue Toprol-XL 25 mg once daily Hydralazine PRN (8) Hypoxia: To low of 79% on room air in the ED after seizure. responded to supplemental oxygen. Likely due to post-ictal state But may have aspirated causing a chemical pneumonitis. No indication of pneumonia at this time. No longer requiring any oxygen (9) Major depression, recurrent: Severe, with suicidal ideations Seen by psychiatry-recommend starting either Remeron or Seroquel or SSRI-they will continue to follow Patient is agreeable to this-started Remeron 7.5 mg p.o. at bedtime as he took this during last admission and had improvement (10) Polyneuropathy: Started gabapentin 300 mg p.o. twice daily as per neurology recommendation above Titrate up if needed if renal failure improves (11) Cardiomyopathy: Presumed nonischemic cardiomyopathy Most recent echo in 2018 shows improved LVEF 45% with wall motion abnormalities -cannot give ACEi due to development of acute kidney injury with 1 dose of lisinopril -Started Toprol-XL 25 mg daily (12) DVT prophylaxis: SCDs, Lovenox Dispo- remain on med/surg PT/OT consults placed to make sure he is at his baseline mobility status Case management involved- caregivers would like him to go to SNF rehab, unsafe at home at this time Subjective patient stable today, no new issues went for renal artery duplex ordered by Dr. Celeste, no acute findings Cr improved to 1.7 from 3.0, in recovery phase of ATN, making more urine discussed with Dr. Celeste, appreciate his input patient without seizure activity discussed with case assembler, they are in contact with caregivers about patient going to rehab patient denies pain in right shoulder at site of fracture he is not eating, says he is not hungry says he is sleeping okay denies chest pain, dyspnea, cough Review of Systems Review of Systems: All systems reviewed & are unremarkable except as noted in HPI & below Respiratory: no cough and no dyspnea Cardiovascular: no chest pain and no edema Musculoskeletal: + joint pain (Right shoulder due to fracture) Neurologic: no seizure-like activity Physical Exam Constitutional: WD/WN, vitals as above Eyes: PERRL, conjunctivae normal, anicteric sclerae ENMT: external ear and nose normal, oropharynx normal Neck: trachea midline, no thyromegaly Respiratory: normal respiratory effort, lungs clear to auscultation Cardiovascular: RRR, no murmur, no edema Gastrointestinal (Abdomen): normal bowel sounds, soft, nontender, no hepatosplenomegaly Musculoskeletal: Head/Neck/Chest: normocephalic and head atraumatic Extremities: + abnormal strength (Right sided weakness) and + muscle atrophy (Right side); + extremities abnormal to inspection (Right arm in sling) Skin: no rashes, warm and dry Neurologic: patellar DTR's 2+ bilat, sensation intact and PERRL, EOMI, accommodation nl, no face palsy, no dysarthria Psychiatric: A+Ox3, euthymic affect Lymphatic: no cervical or axillary lymphadenopathy Results & Data ([facility]) Vital Signs (Past 12 Hours) Vital Signs Temp Pulse Pulse Resp BP Pulse Ox 03/18/19 20:00 37.1 C 67 20 183/86 H 97 03/18/19 16:00 65 03/18/19 15:55 36.6 C 72 18 136/76 96 03/18/19 11:40 36.8 C 65 18 157/83 H 96 Laboratory Results Laboratory Results - last 24 hr 03/15/19 03/18/19 03/18/19 03:38 07:29 07:29 Sodium 138 Potassium 3.3 L Chloride 105 Carbon Dioxide 23 Anion Gap 11.0 BUN 47 H Creatinine 1.76 H D Est Cr Clr Drug Dosing 43.6 Est GFR ( Amer) 49.7 Est GFR (Non-Af Amer) 42.9 BUN/Creatinine Ratio 26.8 H Glucose 66 L Calcium 8.5 Phosphorus 2.9 Total Creatine Kinase 352 H Albumin 3.3 L Valproic Acid 25 L Levetiracetam < 1.0 L Medications Administered Current Inpatient Medications Acetaminophen (Tylenol) 650 mg PO Q4H PRN PRN Reason: mild pain or fever Stop: 04/14/19 08:13 Last Admin: 03/17/19 19:37 Dose: 650 mg Documented by: Albuterol (Ventolin 0.083% 2.5mg/3ml) 2.5 mg NEB Q4H PRN PRN Reason: Shortness Of Breath Or Wheezing Stop: 04/14/19 08:13 Aspirin (Ecotrin Ectab) 81 mg PO QAM [facility] Stop: 04/15/19 08:59 Last Admin: 03/18/19 08:07 Dose: 81 mg Documented by: Atorvastatin Calcium (Lipitor) 40 mg PO QAM [facility] Stop: 04/15/19 08:59 Last Admin: 03/18/19 08:07 Dose: 40 mg Documented by: Divalproex Sodium (Depakote Extended Release) 500 mg PO DAILY [facility] Stop: 04/15/19 08:59 Last Admin: 03/18/19 08:07 Dose: 500 mg Documented by: Enoxaparin Sodium (Lovenox) 40 mg SQ Q24H [facility] Stop: 04/14/19 08:59 Last Admin: 03/18/19 08:07 Dose: 40 mg Documented by: Gabapentin (Neurontin) 300 mg PO BID [facility] Stop: 04/14/19 20:59 Last Admin: 03/18/19 20:17 Dose: 300 mg Documented by: Hydralazine HCl (Hydralazine Hcl) 10 mg IV Q8H PRN PRN Reason: SBP>180 or DBP>110 Stop: 04/14/19 20:05 Last Admin: 03/18/19 20:05 Dose: 10 mg Documented by: Hydromorphone HCl (Dilaudid) 0.5 mg IV Q3H PRN PRN Reason: Severe Pain Stop: 03/29/19 08:13 Last Admin: 03/16/19 06:13 Dose: 0.5 mg Documented by: Lorazepam (Ativan) 2 mg in 4 mls @ 4 mls/min IV Q4H PRN PRN Reason: Breakthrough Seizures Stop: 04/14/19 08:13 Parenteral Electrolytes (Normosol-R) 1,000 mls @ 125 mls/hr IV .Q8H [facility] Stop: 04/16/19 10:44 Last Admin: 03/18/19 16:15 Dose: 125 mls/hr Documented by: Metoprolol Succinate (Toprol Xl) 25 mg PO QAM [facility] Stop: 04/15/19 09:44 Last Admin: 03/18/19 08:07 Dose: 25 mg Documented by: Mirtazapine (Remeron) 7.5 mg PO HS [facility] Stop: 04/15/19 20:59 Last Admin: 03/18/19 20:15 Dose: 7.5 mg Documented by: Ondansetron HCl (Zofran) 4 mg IV Q6H PRN PRN Reason: nausea or vomiting Stop: 04/14/19 08:13 Last Admin: 03/16/19 03:17 Dose: 4 mg Documented by: Pantoprazole Sodium (Protonix) 40 mg PO QAM [facility] Stop: 04/14/19 08:59 Last Admin: 03/18/19 08:07 Dose: 40 mg Documented by: Tramadol HCl (Ultram) 50 mg PO Q4H PRN PRN Reason: Moderate Pain Stop: 04/14/19 08:13 Last Admin: 03/18/19 20:07 Dose: 50 mg Documented by: PG Care Time/CCT Total # of Minutes Spent Total Time Spent with Patient: Total time spent is greater than 50% in coordination of care (as documented) at patient's floor/unit and/or counseling patient: Coding Level of Care Code 10057 Subseq Hosp Care Lvl 3 Diagnoses Seizure disorder G40.909 ARF (acute renal failure) N17.9 Hypokalemia E87.6 Fracture, humerus closed S42.309A CVA, old, dysarthria I69.322 Hemiparesis, right G81.91 Hypertension I10 Hypoxia R09.02 Major depression, recurrent F33.9 Polyneuropathy G62.9 Cardiomyopathy I42.9 DVT prophylaxis Z29.9
[2019-03-18] MEDS: HYDROmorphone INJ 0.5 MG/0.5 ML SYR IV PRN (23:50)
[2019-03-19] MEDS: NORMOSOL-R 1,000 ML IV SCH ×2 (00:17→08:57)
[2019-03-19 07:07] LABS: Hematocrit (blood only) 36.3 % (42-52); Mean Corpuscular Hemoglobin 31.9 pg (25-34); Mean Corpuscular Hgb Conc 35.8 g/dL (32-36); Mean Corpuscular Volume 89.2 fL (80-100); Mean Platelet Volume 9.6 fL (7.4-10.4); Platelet Count 170 K/uL (130-400); RDW Coefficient of Variation 11.8 % (11.5-14.5); RDW Standard Deviation 38.5 fL (36.4-46.3); Red Blood Count 4.07 M/uL (4.7-6.1); White Blood Count 7.89 K/uL (4.8-10.8)
[2019-03-19 07:47] LABS: BUN Creatinine Ratio 26.9 (10-20); Calcium 8.5 mg/dl (8.5-10.1); Creatinine Clr Calc Pharmacy 77.3 ml/min; Est GFR (African American) 98.5; Est GFR (Non-African American) 84.9; Magnesium 1.9 mg/dl (1.8-2.4); Potassium 3.6 mmol/L (3.5-5.1)
[2019-03-19] MEDS: DIVALPROEX EXTENDED RELEASE 500 MG TAB PO SCH (08:49)
[2019-03-19] MEDS: ASPIRIN 81 MG ECTAB PO SCH (08:50)
[2019-03-19] MEDS: PANTOprazole 40 MG TAB PO SCH (08:50)
--- NOTE | 2019-03-19 08:50 | Nephrology Progress Note ---
Date of Service March 19, 2019 Assessment & Plan (1) ARF (acute renal failure): -- Patient remains clinically volume contracted. Continue IV hydration w/ Normosol at 125 cc/hr. Defer management to primary service -- Renal artery doppler was negative for DUANE. Given patient's propensity to dehydration recommend avoiding WILFREDO/ARB -- Kidney function has recovered. Electrolyte balance is acceptable. Will sign off. Please call if further assistance is needed. Recommend outpatient monitoring w/ PCP (2) Hypertension: -- Avoid WILFREDO/ARB. If tighter control of BP needed consider adding Amlodipine to current medical regimen -- Blood pressure is well controlled w/ current medical regimen. Continue Toprol and PRN Hydralazine (3) Major depression, recurrent: -- Psychiatry consultation reviewed: recommended therapy w/ Remeron -- Mr. Gardner expressed a desire to return home but continues to refuse food and water (4) History of seizures: -- Neurology consultation reviewed: Poor adherance w/ medical therapy. Now on Depakote and Gabapentin (5) H/O ischemic left MCA stroke: (6) Humerus fracture: -- R arm immobilized in sling. Orthopedic surgery recommended immobilization w/ sling x 3 - 4 weeks and then outpatient evaluation Subjective Mr. Gardner was seen & examined in his hospital room this morning. He remains on Normosol at 125 cc/min IV. He is tolerating this without dyspnea or progressive LE swelling. He reports that he is voiding easily on his own. When asked if he is taking in nourishment Mr. Gardner becomes agitated and reaffirms his choice not to eat or drink. Review of Systems Constitutional: + weakness; no fever Eyes: no worsening vision and no problem reported Ear, Nose, Mouth, Throat: no problem reported Respiratory: no cough and no dyspnea Cardiovascular: no chest pain, no palpitations and no edema Gastrointestinal: no abdominal pain, no nausea, no vomiting and no diarrhea/loose stools Genitourinary: no dysuria, no urinary hesitancy and no hematuria Musculoskeletal: no back pain Integumentary: no rash Neurologic: no falls, no dizziness and no confusion Physical Exam Constitutional: + thin and + frail appearing Eyes: PERRL, conjunctivae normal, anicteric sclerae ENMT: external ear and nose normal, oropharynx normal Neck: trachea midline, no thyromegaly Respiratory: normal respiratory effort, lungs clear to auscultation Cardiovascular: RRR, no murmur, no edema Gastrointestinal (Abdomen): normal bowel sounds, soft, nontender, no hepatosplenomegaly Musculoskeletal: Extremities: no cyanosis Skin: no rashes, warm and dry Neurologic: awake; not confused Results & Data Vital Signs (Past 12 Hours) Vital Signs Temp Pulse Pulse Resp BP Pulse Ox 03/19/19 08:02 36.8 C 66 18 165/81 H 94 03/19/19 07:28 68 03/19/19 04:39 36.8 C 75 16 164/82 H 94 03/18/19 23:35 36.4 C L 64 18 165/77 H 93 03/18/19 22:20 73 Laboratory Results Laboratory Tests 03/18/19 03/19/19 03/19/19 07:29 06:35 06:35 WBC 7.89 Hgb 13.0 L Hct 36.3 L Plt Count 170 Sodium 139 Potassium 3.6 Chloride 104 Carbon Dioxide 25 BUN 27 H Creatinine 1.00 D Glucose 59 L Total Creatine Kinase 352 H PG Care Time/CCT Total # of Minutes Spent Total Time Spent with Patient: Total time spent is greater than 50% in coor dination of care (as documented) at patient's floor/unit and/or counseling patient: Coding Level of Care Code 32079 Subseq Hosp Care Lvl 3 Diagnoses ARF (acute renal failure) N17.9 Hypertension I10 Major depression, recurrent F33.9 History of seizures Z87.898 H/O ischemic left MCA stroke Z86.73 Humerus fracture S42.309A
[2019-03-19] MEDS: ENOXAPARIN INJ 40 MG/0.4 ML SYR SQ SCH (08:51)
[2019-03-19] MEDS: METOPROLOL SUCC 25MG EXT REL TAB PO SCH (08:51)
[2019-03-19] MEDS: ATORVASTATIN 40 MG TAB PO SCH (08:51)
[2019-03-19] MEDS: GABAPENTIN 300 MG CAP PO SCH (08:51)
[2019-03-19] MEDS: TRAMADOL HCL 50 MG TABLET PO PRN (08:57)
--- NOTE | 2019-03-19 14:22 | Hospitalist Progress Note ---
Date of Service March 19, 2019 Assessment & Plan (1) Seizure disorder: Presented with a witnessed generalized seizure which resulted in a right humerus fracture when he fell out of his wheelchair Has had a seizure disorder for years and has had a significant left MCA territory stroke which puts him at risk for seizure patient was not taking Keppra at home neurology recommends switching to Depakote due to less mood side effects continue Depakote 500mg daily -PRN Ativan valproic acid level 25 on 03/18 no seizure activity for several days, will continue Depakote on discharge (2) ARF (acute renal failure): Cr went up to 3.55 from 1.2 on admission after starting lisinopril and with poor p.o. intake, refused to get IVFs likely prerenal, FeNa 0.7%, BUN way up, but some possible ATN as well since Cr teofilo Cr coming back down with IV fluids Cr 1.0 today after it was 1.7 on 03/18 making adequate urine, electrolytes stable discussed with Dr. Celeste, appreciate his input -continue to hold lisinopril and would not restart continue IV fluids for now as the patient refuses to eat/drink and will get dehydrated (3) Hypokalemia: Low upon admission and was replaced K is 3.6 today Replace PO -Follow BMP (4) Fracture, humerus closed: Right humeral neck fracture secondary to seizure and fall out of wheelchair CT of shoulder shows no dislocation or intra-articular fracture Orthopedics consultation appreciated Recommend sling for 3 to 4 weeks and follow-up with orthopedics as an outpatient Pain control as needed (5) CVA, old, dysarthria: With a history of 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, dysarthria With chronic spastic pain Has a previous history of LV thrombus secondary to severe cardiomyopathy which is now resolved--thrombus was treated with anticoagulation a couple of years ago Given his history of multiple CVAs-added aspirin, high intensity statin as he was not on these at the time of admission -Needs improved blood pressure control-added lisinopril back but now with RAVEN, have since discontinued lisinopril and added Toprol-XL 25 mg daily Neurology also suggested adding gabapentin for his neuropathy and chronic pain and trying to taper him off tramadol-he says he is agreeable to this -Supportive care PT/OT consult (6) Hemiparesis, right: secondary to old CVA, is wheelchair bound. As above (7) Hypertension: Blood pressures significantly elevated upon first day of admission and are now much improved with starting Toprol-XL -Continue Toprol-XL 25 mg once daily Hydralazine PRN (8) Hypoxia: To low of 79% on room air in the ED after seizure. responded to supplemental oxygen. Likely due to post-ictal state But may have aspirated causing a chemical pneumonitis. No indication of pneumonia at this time. No longer requiring any oxygen (9) Major depression, recurrent: Severe, with suicidal ideations Seen by psychiatry-recommend starting either Remeron or Seroquel or SSRI-they w ill continue to follow Patient is agreeable to this-started Remeron 7.5 mg p.o. at bedtime as he took this during last admission and had improvement patient still states that he just wants to , refusing to eat/drink has been on hospice in the past will ask palliative care to see him tomorrow (10) Polyneuropathy: Started gabapentin 300 mg p.o. twice daily as per neurology recommendation above (11) Cardiomyopathy: Presumed nonischemic cardiomyopathy Most recent echo in 2018 shows improved LVEF 45% with wall motion abnormalities -cannot give ACEi due to development of acute kidney injury with 1 dose of lisinopril -Started Toprol-XL 25 mg daily examines euvolemic (12) DVT prophylaxis: SCDs, Lovenox Dispo- remain on med/surg PT/OT consults placed to make sure he is at his baseline mobility status Case management involved- caregivers would like him to go to SNF rehab, unsafe at home at this time however, patient strongly refuses to even consider rehab he is fixated on wanting to , which he has stated in the past on multiple occasions will ask palliative to see patient, unsure he qualifies for hospice at this time Subjective patient resting comfortably he is still refusing to eat, he states that he just wants to he does not want to talk with counselor/psychiatrist discussed that the plan is to go home with care givers, home therapy discussed that if he does not eat or drink he will be back in the hospital he got very angry, said that he just wants to we discussed going on hospice, he just threw up his hands in frustration he denies pain in right shoulder no issues breathing, no fever/chills, no seizure activity while taking the Depakote discussed with palliative care, will ask them to see patient tomorrow, discuss hospice? Review of Systems Review of Systems: All systems reviewed & are unremarkable except as noted in HPI & below Psychiatric: + depression and + hopelessness Physical Exam Constitutional: WD/WN, vitals as above Eyes: PERRL, conjunctivae normal, anicteric sclerae ENMT: external ear and nose normal, oropharynx normal Neck: trachea midline, no thyromegaly Respiratory: normal respiratory effort, lungs clear to auscultation Cardiovascular: RRR, no murmur, no edema Gastrointestinal (Abdomen): normal bowel sounds, soft, nontender, no hepatosplenomegaly Musculoskeletal: Head/Neck/Chest: normocephalic and head atraumatic Extremities: + abnormal strength (Right sided weakness) and + muscle atrophy (Right side); + extremities abnormal to inspection (Right arm in sling) Skin: no rashes, warm and dry Neurologic: patellar DTR's 2+ bilat, sensation intact and PERRL, EOMI, accommodation nl, no face palsy, no dysarthria Psychiatric: Orientation: alert and oriented x 3 Eye Contact: good eye contact Speech: + pressured speech and + loud speech Affect: + depressed affect Mood: + irritable mood Lymphatic: no cervical or axillary lymphadenopathy Results & Data ([facility]) Vital Signs (Past 12 Hours) Vital Signs Temp Pulse Pulse Resp BP Pulse Ox 03/19/19 11:35 36.9 C 65 18 159/82 H 96 03/19/19 08:02 36.8 C 66 18 165/81 H 94 03/19/19 07:28 68 03/19/19 04:39 36.8 C 75 16 164/82 H 94 Laboratory Results Laboratory Results - last 24 hr 03/19/19 03/19/19 06:35 06:35 WBC 7.89 RBC 4.07 L Hgb 13.0 L Hct 36.3 L MCV 89.2 MCH 31.9 MCHC 35.8 RDW Std Deviation 38.5 RDW Coeff of Yadira 11.8 Plt Count 170 MPV 9.6 Sodium 139 Potassium 3.6 Chloride 104 Carbon Dioxide 25 Anion Gap 10.0 BUN 27 H Creatinine 1.00 D Est Cr Clr Drug Dosing 77.3 Est GFR ( Amer) 98.5 Est GFR (Non-Af Amer) 84.9 BUN/Creatinine Ratio 26.9 H Glucose 59 L Calcium 8.5 Magnesium 1.9 Medications Administered Current Inpatient Medications Acetaminophen (Tylenol) 650 mg PO Q4H PRN PRN Reason: mild pain or fever Stop: 04/14/19 08:13 Last Admin: 03/17/19 19:37 Dose: 650 mg Documented by: Albuterol (Ventolin 0.083% 2.5mg/3ml) 2.5 mg NEB Q4H PRN PRN Reason: Shortness Of Breath Or Wheezing Stop: 04/14/19 08:13 Aspirin (Ecotrin Ectab) [facility] [place] Stop: 04/15/19 08:59 Last Admin: 03/19/19 08:50 Dose: 81 mg Documented by: Atorvastatin Calcium (Lipitor) 40 [facility] [place] Stop: 04/15/19 08:59 Last Admin: 03/19/19 08:51 Dose: 40 mg Documented by: Divalproex Sodium (Depakote Extended Release) 500 mg PO DAILY [facility] Stop: 04/15/19 08:59 Last Admin: 03/19/19 08:49 Dose: 500 mg Documented by: Enoxaparin Sodium (Lovenox) 40 mg SQ Q24H [facility] Stop: 04/14/19 08:59 Last Admin: 03/19/19 08:51 Dose: 40 mg Documented by: Gabapentin (Neurontin) 300 mg PO BID [facility] Stop: 04/14/19 20:59 Last Admin: 03/19/19 08:51 Dose: 300 mg Documented by: Hydralazine HCl (Hydralazine Hcl) 10 mg IV Q8H PRN PRN Reason: SBP>180 or DBP>110 Stop: 04/14/19 20:05 Last Admin: 03/18/19 20:05 Dose: 10 mg Documented by: Hydromorphone HCl (Dilaudid) 0.5 mg IV Q3H PRN PRN Reason: Severe Pain Stop: 03/29/19 08:13 Last Admin: 03/18/19 23:50 Dose: 0.5 mg Documented by: Lorazepam (Ativan) 2 mg in 4 mls @ 4 mls/min IV Q4H PRN PRN Reason: Breakthrough Seizures Stop: 04/14/19 08:13 Parenteral Electrolytes (Normosol-R) 1,000 mls @ 125 mls/hr IV .Q8H [facility] Stop: 04/16/19 10:44 Last Admin: 03/19/19 08:57 Dose: 125 mls/hr Documented by: Metoprolol Succinate (Toprol Xl) [facility] [place] Stop: 04/15/19 09:44 Last Admin: 03/19/19 08:51 Dose: 25 mg Documented by: Mirtazapine (Remeron) 7.5 mg PO HS [facility] Stop: 04/15/19 20:59 Last Admin: 03/18/19 20:15 Dose: 7.5 mg Documented by: Ondansetron HCl (Zofran) 4 mg IV Q6H PRN PRN Reason: nausea or vomiting Stop: 04/14/19 08:13 Last Admin: 03/16/19 03:17 Dose: 4 mg Documented by: Pantoprazole Sodium (Protonix) 40 mg PO [facility] Stop: 04/14/19 08:59 Last Admin: 03/19/19 08:50 Dose: 40 mg Documented by: Tramadol HCl (Ultram) 50 mg PO Q4H PRN PRN Reason: Moderate Pain Stop: 04/14/19 08:13 Last Admin: 03/19/19 08:57 Dose: 50 mg Documented by: PG Care Time/CCT Total # of Minutes Spent Total Time Spent: 38 Total Time Spent with Patient: Total time spent is greater than 50% in coordination of care (as documented) at patient's floor/unit and/or counseling patient: Coding Level of Care Code 60222 Subseq Hosp Care Lvl 3 Diagnoses Seizure disorder G40.909 ARF (acute renal failure) N17.9 Hypokalemia E87.6 Fracture, humerus closed S42.309A CVA, old, dysarthria I69.322 Hemiparesis, right G81.91 Hypertension I10 Hypoxia R09.02 Major depression, recurrent F33.9 Polyneuropathy G62.9 Cardiomyopathy I42.9 DVT prophylaxis Z29.9
--- NOTE | 2019-03-19 15:42 | Palliative Care Consultation ---
Date of Consultation March 19, 2019 Assessment & Plan (1) Goals of care, counseling/discussion: -53 year old male patient with PMH large left MCA CVA with resulting right hemiparesis-status post TPA, expressive and receptive aphasia. Presented to the hospital several days ago after a seizure and fall out of his wheelchair at home. His right humerus is fractured. Patient's creatinine was also very elevated, peaked at 3.55, but now is back to normal level after IV hydration. Patient is well-known to the palliative care service-- for pain management and also for goals of care. Patient has been on hospice several times in the past as he always maintains that he does not want to continue living this way and prefers a conservative approach to things. Patient is frustrated with his dependent state and continued slow decline over time. He is hardly eating or drinking anything at all here in the hospital, tells the doctor he just wants to go home and . Psych has seen patient several times-- he has no suicidal ideation. Patient has a caregiver/POA, Don Vega, who lives with patient and takes 24/ care of him. Palliative care is consulted to discuss goals of care with patient and PARISH Ochoa. -Met with patient in room 281-2. He is awake and alert, oriented x4. Having a hard time speaking, but was actually able to get his thoughts across. -Patient states his only goal is to return home. He confirms that he told the doctor that he likely will continue to not eat or drink much, and wants to just let nature take its course. -Don was also present for conversation. He confirms that patient has been on hospice several times in the past, and he does not feel that this is what patient needs at this time. However, he is aware it's available if patient does take a steep decline. -In reviewing patient's record, he of course has fairly severe deficits left from his large stroke, but they are stable. He does go through periods of not eating/drinking, but his weight and BMI are stable. Not certain if he would truly qualify for hospice at this point anyway. -Patient takes Tramadol long-term for his chronic pain. No symptom management needs at this time. -Patient has a POLST form on file. -Patient and POA in agreement with home with no services. -Please contact us with any further palliative care needs. (2) Closed right humeral fracture: (3) Major depression, recurrent: (4) H/O ischemic left MCA stroke: History of Present Illness Attending Physician: Sai Daniel DO History of Present Illness This 53 year old male patient with PMH large left MCA CVA with resulting right hemiparesis-status post TPA, expressive and receptive aphasia. Presented to the hospital several days ago after a seizure and fall out of his wheelchair at home. His right humerus is fractured. Patient's creatinine was also very elevated, peaked at 3.55, but now is back to normal level after IV hydration. Patient is well-known to the palliative care service-- for pain management and also for goals of care. Patient has been on hospice several times in the past as he always maintains that he does not want to continue living this way and prefers a conservative approach to things. Patient is frustrated with his dependent state and continued slow decline over time. He is hardly eating or drinking anything at all here in the hospital, tells the doctor he just wants to go home and . Psych has seen patient several times-- he has no suicidal ideation. Patient has a caregiver/POA, Don Vega, who lives with patient and takes 24/7 care of him. Palliative care is consulted to discuss goals of care with patient and POValorie Ochoa. Thank you kindly for this consult. Palliative care team will follow as needed. Allergies Allergy/AdvReac Type Severity Reaction Status Date / Time codeine Allergy Mild HIVES Verified 03/15/19 12:01 Home Medications Home Medications Medication Instructions Recorded Confirmed Type tramadol 50 mg PO TID PRN #0 tab 12/10/18 03/15/19 Rx Patient History Medical History (Updated 03/19/19 @ 15:42 by SHYAM Britton) Anemia (Chronic) ARF (acute renal failure) (02/03/14) Arterial ischemic stroke, MCA (middle cerebral artery), left, chronic (Resolved) Back pain (Chronic) Breakthrough seizure (Resolved) Cardiomyopathy (Chronic Unknown) "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% " On 08/13/12 05:02 J Luis Torres wrote "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% " Cervical radiculopathy at C7 (Chronic) Change in mental status (Resolved) Goals of care, counseling/discussion Hemiparesis (Resolved Unknown) "right hemiparesis " On 08/13/12 00:17 Ham Jacobs wrote "right hemiparesis " Hemorrhagic shock (Resolved) Humerus fracture Hyperammonemia (Resolved) Hyperkalemia (Resolved) Hypomagnesemia (Resolved) Hyponatremia (Resolved Unknown) Hypoxia (Resolved 02/22/14) Ischemic stroke (Chronic Unknown) "left MCA received TPA echo- LV mural thrombus residual right hemiparesis + aphasia " Left shoulder pain (Resolved) Leg fracture, right (Resolved) Metabolic encephalopathy (Resolved 03/21/14) Seizure (Resolved) Sepsis (Unknown) Shoulder pain (Resolved) Status epilepticus, 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) Suicide attempt (Chronic Unknown) Family History Father No pertinent family history Social History Preferred Language: Tajik Communication Ability: Impaired Twister Doffer Required: No Beliefs That Will Affect Care: None marital status: Single Current Living Situation: Significant Other Current Living Situation Comment: Júnior Vega (POA) Other Information That Helps Us Care for You: No Feels Safe at Home: Yes Safety Concerns: Feels Safe At This Time Smoking Status: Never smoker Cigarettes Per Day: 2 ; Second Hand Exposure: No ; Hx Alcohol Use: No Hx Substance Use: No Review of Systems Review of Systems: Denies pain, SOB, N/V, abdominal pain. Admits to poor PO intake. Physical Exam Constitutional: + physical limitations; no acute distress and + not healthy appearing ENMT: external ear and nose normal, oropharynx normal Respiratory: normal respiratory effort; no labored breathing Cardiovascular: Rate/Rhythm: regular rate and regular rhythm Extremities: no edema Musculoskeletal: muscle atrophy Neurologic: awake; not confused Speech / Cognition: + expressive aphasia and + receptive aphasia Psychiatric: Orientation: alert and oriented x 3 Affect: + irritable affect Results & Data Vital Signs (Past 12 Hours) Vital Signs Temp Pulse Pulse Resp BP Pulse Ox 03/19/19 11:35 36.9 C 65 18 159/82 H 96 03/19/19 08:02 36.8 C 66 18 165/81 H 94 03/19/19 07:28 68 03/19/19 04:39 36.8 C 75 16 164/82 H 94 Coding Level of Care Code 48600 Inpt Consult Level 2 Diagnoses Goals of care, counseling/discussion Z71.89 Closed right humeral fracture S42.301A Major depression, recurrent F33.9 H/O ischemic left MCA stroke Z86.73 Time Spent (min) 50 Time Spent Midlevel 50 minutes with >50% of the time spent at bedside with patient and POA/caregiver discussing condition and GOC.
--- NOTE | 2019-03-19 20:50 | Discharge Summary ---
Date of Service March 19, 2019 Admission HPI Per Admitting Provider 53 y/o male presented to the ED after a witnessed seizure 1 hour prior to arrival. Patient is not able to give history, but roommate reports that patient was seated in wheelchair and began to have seizure causing patient to slid down onto ground or right side. Patient has history of seizures and is prescribed Keppra but has not been taking. He is having 8/10 pain in his right arm. No recent F/C, cough, SOB, chest pain, or headache. I confirmed with the caregiver that the patient is DNR. Primary Care Provider: Ashia Thomas MD Principal Diagnosis Seizure Discharge Exam Constitutional WD/WN, vitals as above Eyes PERRL, conjunctivae normal, anicteric sclerae ENMT external ear and nose normal, oropharynx normal Neck trachea midline, no thyromegaly Respiratory normal respiratory effort, lungs clear to auscultation Cardiovascular RRR, no murmur, no edema Gastrointestinal (Abdomen) normal bowel sounds, soft, nontender, no hepatosplenomegaly Musculoskeletal Head/Neck/Chest: normocephalic and head atraumatic Extremities: + abnormal strength (Right sided weakness) and + muscle atrophy (Right side); + extremities abnormal to inspection (Right arm in sling) Skin no rashes, warm and dry Neurologic patellar DTR's 2+ bilat, sensation intact and PERRL, EOMI, accommodation nl, no face palsy, no dysarthria Psychiatric A+Ox3, euthymic affect Orientation: alert and oriented x 3 Eye Contact: good eye contact Speech: + pressured speech and + loud speech Affect: + depressed affect Mood: + irritable mood Lymphatic no cervical or axillary lymphadenopathy Discharge Data Allergies Allergy/AdvReac Type Severity Reaction Status Date / Time codeine Allergy Mild HIVES Verified 03/15/19 12:01 Consultations 03/15/19 05:21 ED Decision to Admit Stat 03/15/19 08:14 Consult Neurology Routine Consult Orthopedic Surgery Routine 03/15/19 16:43 Consult Psychiatry Routine 03/18/19 01:20 Consult Case Management - Discharge Planning Routine 03/19/19 14:22 Consult Palliative Care Routine Ordered Studies 03/15/19 09:30 CT shoulder RT wo con Routine 03/17/19 08:32 US renal/blad retro comp Routine 03/18/19 09:34 US duplex renal artery Routine Hospital Course (1) Seizure disorder: Presented with a witnessed generalized seizure which resulted in a right humerus fracture when he fell out of his wheelchair Has had a seizure disorder for years and has had a significant left MCA territory stroke which puts him at risk for seizure patient was not taking Keppra at home neurology recommends switching to Depakote due to less mood side effects continue Depakote 500mg daily valproic acid level 25 on 03/18 no seizure activity for several days, will continue Depakote on discharge (2) ARF (acute renal failure): Cr went up to 3.55 from 1.2 on admission after starting lisinopril and with poor p.o. intake, refused to get IVFs likely prerenal, FeNa 0.7%, BUN way up, but some possible ATN as well since Cr teofilo Cr coming back down with IV fluids Cr 1.0 on 03/19 after it was 1.7 on 03/18 making adequate urine, electrolytes stable discussed with Dr. Celeste, appreciate his input -continue to hold lisinopril and would not restart no further IV fluids needed patient plans to not eat or drink discussed that he will be back in the hospital asked palliative to see him, he and caregiver refuse hospice at this time will go home (3) Hypokalemia: Low upon admission and was replaced K is 3.6 on 03/19 (4) Fracture, humerus closed: Right humeral neck fracture secondary to seizure and fall out of wheelchair CT of shoulder shows no dislocation or intra-articular fracture Orthopedics consultation appreciated Recommend sling for 3 to 4 weeks and follow-up with orthopedics as an outpatient Pain control as needed (5) CVA, old, dysarthria: With a history of 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, dysarthria With chronic spastic pain Has a previous history of LV thrombus secondary to severe cardiomyopathy which is now resolved--thrombus was treated with anticoagulation a couple of years ago Given his history of multiple CVAs-added aspirin, high intensity statin as he was not on these at the time of admission -Needs improved blood pressure control-added lisinopril back but now with RAVEN, have since discontinued lisinopril and added Toprol-XL 25 mg daily Neurology also suggested adding gabapentin for his neuropathy and chronic pain and trying to taper him off tramadol-he says he is agreeable to this -Supportive care PT/OT consult (6) Hemiparesis, right: secondary to old CVA, is wheelchair bound. As above (7) Hypertension: Blood pressures significantly elevated upon first day of admission and are now much improved with starting Toprol-XL -Continue Toprol-XL 25 mg once daily Hydralazine PRN (8) Hypoxia: To low of 79% on room air in the ED after seizure. responded to supplemental oxygen. Likely due to post-ictal state But may have aspirated causing a chemical pneumonitis. No indication of pneumonia at this time. No longer requiring any oxygen (9) Major depression, recurrent: Severe, with suicidal ideations Seen by psychiatry-recommend starting either Remeron or Seroquel or SSRI-they will continue to follow Patient is agreeable to this-started Remeron 7.5 mg p.o. at bedtime as he took this during last admission and had improvement patient still states that he just wants to , refusing to eat/drink has been on hospice in the past Palliative care saw him on day of discharge, he and caregiver do NOT want hospice at this time (10) Polyneuropathy: Started gabapentin 300 mg p.o. twice daily as per neurology recommendation above (11) Cardiomyopathy: Presumed nonischemic cardiomyopathy Most recent echo in 2018 shows improved LVEF 45% with wall motion abnormalities -cannot give ACEi due to development of acute kidney injury with 1 dose of lisinopril -Started Toprol-XL 25 mg daily examines euvolemic Total Time Total Time Spent Total Time Spent (In Minutes): 33 minutes Total Time Includes: Examination of the Patient, Discharge Planning and Medication Reconciliation Discharge Plan Discharge Items Patient Disposition: Home - Home Health Services Reason For Visit: seizure Discharge Diagnosis: Seizure due to non-compliance with Keppra Right humerus fracture Condition on Discharge: Good Goals: continue Depakote for seizure prevention keep right arm in sling for 4 weeks Activity: As commented below Activity Comment: do not remove right arm from sling for 4 weeks Bathing: No limitations Non-emergency contact: Primary Care Provider Call non-emergency contact if: you have any medication questions, your symptoms worsen and your pain is not controlled Follow-up/Referrals: Ashia Thomas MD [Primary Care Provider] - Diet: Regular Addtl Attending Provider Instructions: Medications: - DEPAKOTE: 500mg daily, this is new seizure medication, need to take EVERY day - METOPROLOL: take 25mg daily for blood pressure - ASPIRIN: take 81mg daily for secondary stroke prevention - LIPITOR: take 40mg daily for secondary stroke prevention - GABAPENTIN: 300mg twice a day for neuropathy - REMERON: 7.5mg daily at night for depression Encourage you to eat and drink, stay well hydrated You have expressed several times an interest to Hospice was offered, if you feel like you are interested in hospice once you are home this can be arranged Please take all of your medications as prescribed Pending Studies at Discharge: No Stand-Alone Forms: My [facility] Flickr, Smoking Cessation Medications and DC Order Prescriptions: New atorvastatin 40 mg Tablet 40 mg PO QAM 30 Days Qty: 30 RF: 2 aspirin [Ecotrin Low Strength] 81 mg Tablet,Delayed Release (Dr/Ec) 81 mg PO QAM 30 Days Qty: 30 RF: 2 divalproex 500 mg Tablet Extended Release 24 Hr 500 mg PO DAILY 30 Days Qty: 30 RF: 3 gabapentin 300 mg Capsule 300 mg PO BID 30 Days Qty: 60 RF: 3 mirtazapine 15 mg Tablet 7.5 mg PO HS 30 Days Qty: 15 RF: 2 metoprolol succinate 25 mg Tablet Extended Release 24 Hr 25 mg PO QAM 30 Days Qty: 30 RF: 2 Continued tramadol 50 mg tablet 50 mg PO TID PRN (Reason: Pain) Qty: 0 RF: 0 Discharge Orders: Discharge Order (Routine); Ordered 03/19/19 Ordered By: Sai Daniel Admission Data Admit Date/Time: 03/15/19 05:53 Attending Provider: Sai Daniel Admit Provider: Yared Mims Primary Care Provider: Ashia Thomas Other Providers: Evelyn Figueroa ; Jan Isaac ; Richard Servin ; Yared Mims ; Meghan Dewitt Other Interventions: Discharge Summary Assessment (RN) Last Done: 03/19/19 16:18 DC Date/Time DO NOT enter until pt leaves facility: 03/19/19 16:58 Coding Level of Care Code D/C Day Management >30 mins Diagnoses Seizure disorder G40.909 ARF (acute renal failure) N17.9 Hypokalemia E87.6 Fracture, humerus closed S42.309A CVA, old, dysarthria I69.322 Hemiparesis, right G81.91 Hypertension I10 Hypoxia R09.02 Major depression, recurrent F33.9 Polyneuropathy G62.9 Cardiomyopathy I42.9
[2019-03-22 01:03] LABS: CK Total 248 U/L (44-196); CK-MB 0 % (<5); CK-MM 100 % (95-100); Valproic Acid, Free <4.0 mg/L (4.8-17.3); Valproic Acid, Total 11.5 mg/L (50.0-100.0)
== END 2019-03-19 16:58 | disposition home or self-care (01) | DRG 100 ==
LOC: ED 03:06 → SUATTDRO 05:53 → 2N 07:35

== ENCOUNTER 2019-04-20 12:40 | Observation (INO) ==
[2019-04-20 14:17] LABS: Basophils # (auto) 0.01 K/uL (0-0.2); Basophils % (auto) 0.1 %; Hematocrit (blood only) 43.4 % (42-52); Hemoglobin 15.9 g/dL (14.0-18.0); Immature Granulocytes # (auto) 0.03 K/uL (0.00-0.02); Immature Granulocytes % (auto) 0.3 %; Lymphocytes # (auto) 0.99 K/uL (1.2-3.4); Lymphocytes % (auto) 10.2 %; Mean Corpuscular Hemoglobin 31.7 pg (25-34); Mean Corpuscular Hgb Conc 36.6 g/dL (32-36); Mean Corpuscular Volume 86.5 fL (80-100); Mean Platelet Volume 10.3 fL (7.4-10.4); Monocytes # (auto) 0.75 K/uL (0.11-0.59); Monocytes % (auto) 7.7 %; Neutrophils # (auto) 7.91 K/uL (1.4-6.5); Neutrophils % (auto) 81.7 %; Platelet Count 185 K/uL (130-400); RDW Coefficient of Variation 12.4 % (11.5-14.5); RDW Standard Deviation 39.4 fL (36.4-46.3); Red Blood Count 5.02 M/uL (4.7-6.1); White Blood Count 9.69 K/uL (4.8-10.8)
[2019-04-20 14:36] LABS: Albumin Level 4.4 gm/dl (3.4-5.0); BUN Creatinine Ratio 13.3 (10-20); Calcium 9.9 mg/dl (8.5-10.1); Creatinine Clr Calc Pharmacy 59.8 ml/min; Est GFR (African American) 83.2; Est GFR (Non-African American) 71.7; Potassium 3.2 mmol/L (3.5-5.1)
[2019-04-20 14:44] LABS: Albumin Globulin Ratio 1.4 (0.9-2); Globulin 3.1 gm/dl (2.5-4.0); Thyroid Stimulating Hormone 0.645 uIu/ml (0.300-4.500); Total Protein 7.5 gm/dl (6.4-8.2)
--- NOTE | 2019-04-20 15:02 | XRay Report ---
XR chest 1V portable CLINICAL HISTORY: 53 years-old Male presenting with weakness. TECHNIQUE: Portable upright AP view of the chest was obtained. COMPARISON: 03/15/2019. FINDINGS: Cardiomediastinal silhouette normal. Lungs are hyperinflated. No focal opacity. No pleural effusion o r pneumothorax. Suspected osteopenia. Redemonstration of the chronic right humeral neck fracture with nonbridging periosteal reaction. Mild gaseous distention of bowel beneath the diaphragm. No gross ev idence of free gas. IMPRESSION: 1. Hyperinflation suggests underlying obstructive lung disease such as emphysema or asthma. No focal infiltrate to suggest pneumonia. 2. Chronic right humeral neck fracture with nonbridging periosteal reaction. This is likely in the s etting of osteopenia. ACT 112: Negative or not required by law. Electronically signed by: Damian Juarez M.D. 04/20/2019 3:01 PM
[2019-04-20] MEDS ORDERED: TRAMADOL HCL 50 MG TABLET PO STA (16:31)
--- NOTE | 2019-04-20 19:23 | Emergency Department Note ---
Entered by Shoshaan Marin acting as a scribe for Mustapha Ashraf DO History of Present Illness General Chief complaint: Medical Clearance Stated complaint: Eval for [place] [facility] [place] placement Source: patient and family Mode of arrival: EMS History of Present Illness Onset (ago): day(s) 1 Pain Consistency: + constant Relieved By: + none Exacerbated By: + none Associated symptoms: + denies other symptoms (denies SI and HI) Treatments prior to arrival: none The patient is a 53 year old male who presents to the Emergency Room for evaluation and medical clearance for bed placement in a care facility. The patient got in an argument with his patent clerk today who was also his POA. He has lived with this person for the last 10-15 years. Audit Lead notes that he no longer wants to take care of this gentleman. He left for [place]. The police were on scene and called EMS. The patient has a history of strokes, and has difficulty communicating. The patient has asked for assistance getting into a [place] [facility] [place] facility or assisted retirement. His mother states that at one point he was looking at [facility]. He has been hospitalized several times for suicide attempts, but today has no suicidal thoughts. Home Medications Home Medications Medication Instructions Recorded Confirmed Type tramadol 50 mg PO TID PRN #0 tab 12/10/18 04/20/19 Rx aspirin [Ecotrin Low Strength] 81 mg PO QAM 30 Days #30 tab 03/19/19 03/29/19 Rx atorvastatin 40 mg PO QAM 30 Days #30 tab 03/19/19 04/20/19 Rx divalproex 500 mg PO DAILY 30 Days #30 tab 03/19/19 04/20/19 Rx gabapentin 300 mg PO BID 30 Days #60 cap 03/19/19 04/20/19 Rx metoprolol succinate 25 mg PO QAM 30 Days #30 tab 03/19/19 04/20/19 Rx mirtazapine 7.5 mg PO HS 30 Days #15 tab 03/19/19 04/20/19 Rx omeprazole magnesium 20 mg 40 mg PO DAILY #30 tab 03/29/19 04/20/19 Rx tablet,delayed release Allergies Allergy/AdvReac Type Severity Reaction Status Date / Time codeine Allergy Mild HIVES Verified 03/29/19 13:10 Past Med/Surg History Medical History Anemia (Chronic) ARF (acute renal failure) (02/03/14) Arterial ischemic stroke, MCA (middle cerebral artery), left, chronic (Resolved) Back pain (Chronic) Breakthrough seizure (Resolved) Cardiomyopathy (Chronic Unknown) 06/2013 - LVEF 20-25%. LV thrombus. Global Hypokinesis. 01/2014 - LVEF 50% LV thrombus resolved. Inferoapical wall abnormality. 09/2017 - LVEF 40-45%. Grade I diastolic dysfunction. Large LV apical thrombus. Cervical radiculopathy at C7 (Chronic) Change in mental status (Resolved) Hemiparesis (Resolved Unknown) "right hemiparesis " On 08/13/12 00:17 Ham Jacobs wrote "right hemiparesis " Hemorrhagic shock (Resolved) Hyperammonemia (Resolved) Hyperkalemia (Resolved) Hypomagnesemia (Resolved) Hyponatremia (Resolved Unknown) Hypoxia (Resolved 02/22/14) Ischemic stroke (Chronic Unknown) "left MCA received TPA echo- LV mural thrombus residual right hemiparesis + aphasia " Left shoulder pain (Resolved) Leg fracture, right (Resolved) Metabolic encephalopathy (Resolved 03/21/14) Seizure (Resolved) Sepsis (Unknown) Shoulder pain (Resolved) Suicide attempt (Chronic Unknown) Surgical History History of colonoscopy 05/19/2015 - Sigmoid diverticulosis and internal hemorrhoids. No masses or polyps. No biopsies taken. F/U 10 years (2025). Family History Father No pertinent family history Social History Preferred Language: Colombian Communication Ability: Impaired Scanning Clerk Required: No Beliefs That Will Affect Care: None marital status: Single Current Living Situation: Significant Other Current Living Situation Comment: [facility]) Feels Safe at Home: No Is there a partner from a previous relationship who is making you feel unsafe now?: No Smoking Status: Former smoker Cigarettes Per Day: 2 ; Second Hand Exposure: No ; Hx Alcohol Use: No Hx Substance Use: No Review of Systems See HPI for pertinent positives & negatives. and A total of 10 systems reviewed and were otherwise negative Physical Exam Vital Signs Vital Signs - 24 hr 04/20/19 13:00 04/20/19 14:34 04/20/19 15:00 Temperature 36.9 C Temperature Source Oral Pulse Rate 118 H 112 H Pulse Rate [Apical] 108 H Pulse Rate from SpO2 Sensor 112 H Respiratory Rate 20 20 23 Respiratory Effort / Characteristics Non-Labored Spontaneous Non-Labored Spontaneous Respiratory Depth Normal Normal Respiratory Pattern Regular Regular Blood Pressure 182/117 H 154/112 H Blood Pressure [Right Arm] 156/122 H Blood Pressure Mean 138 117 Blood Pressure Mean [Right Arm] 133 Blood Pressure Position Lying Blood Pressure Position [Right Arm] Lying Pulse Oximetry 93 94 95 Oxygen Delivery Method Room Air Room Air Sepsis Recent Fever Within 48 Hours No Sepsis New/Unexplained Change in Mental Status No Sepsis Action Taken by Nursing No Action Required 04/20/19 15:30 04/20/19 16:00 04/20/19 16:30 Temperature Temperature Source Pulse Rate 118 H 106 H 101 H Pulse Rate [Apical] Pulse Rate from SpO2 Sensor 117 H 106 H 101 H Respiratory Rate 19 24 19 Respiratory Effort / Characteristics Respiratory Depth Respiratory Pattern Blood Pressure 160/117 H 185/118 H 177/112 H Blood Pressure [Right Arm] Blood Pressure Mean 127 145 142 Blood Pressure Mean [Right Arm] Blood Pressure Position Blood Pressure Position [Right Arm] Pulse Oximetry 96 98 94 Oxygen Delivery Method Sepsis Recent Fever Within 48 Hours Sepsis New/Unexplained Change in Mental Status Sepsis Action Taken by Nursing 04/20/19 17:30 04/20/19 18:00 04/20/19 18:30 Temperature Temperature Source Pulse Rate 98 H 95 H 100 H Pulse Rate [Apical] Pulse Rate from SpO2 Sensor 99 H 95 H 98 H Respiratory Rate 18 18 18 Respiratory Effort / Characteristics Respiratory Depth Respiratory Pattern Blood Pressure 171/114 H 171/111 H 168/105 H Blood Pressure [Right Arm] Blood Pressure Mean 132 119 112 Blood Pressure Mean [Right Arm] Blood Pressure Position Blood Pressure Position [Right Arm] Pulse Oximetry 95 94 96 Oxygen Delivery Method Sepsis Recent Fever Within 48 Hours Sepsis New/Unexplained Change in Mental Status Sepsis Action Taken by Nursing GENERAL: chronically ill appearing, disheveled, alert, non-toxic EYE EXAM: normal conjunctiva, PERRL and EOM's grossly intact OROPHARYNX: no exudate, no erythema, lips, buccal mucosa, and tongue normal and mucous membranes are moist NECK: supple, no nuchal rigidity, no adenopathy, non-tender LUNGS: Clear to auscultation. Normal chest wall mechanics HEART: no murmurs, S1 normal and S2 normal ABDOMEN: abdomen soft, non-tender, normo-active bowel sounds, no masses, no rebound or guarding. SKIN: no rashes and no bruising UPPER EXTREMITIES: Tenderness to palpation of left upper extremity. LOWER EXTREMITIES: No pitting edema. NEURO EXAM: Awake and alert. Able to respond to written questions. Unable to move right upper and right lower extremity, which is old for the patient. Course Course ED COURSE: Vital signs were reviewed and showed elevated blood pressure and pulse The patients medical record was reviewed The above diagnostic studies were performed and reviewed. ED treatments and interventions as stated above. 1328: The patient was evaluated in room A05. A complete history and physical examination was performed. 1702: The patient was evaluated by the psychiatric heel caser. He denies suicidal ideation and does not meet any inpatient criteria. 1900: Upon reevaluation, the patient is stable for discharge.I discussed my findings with the patient and he understands and agrees with the treatment plan. Based on the patients age, coexisting illnesses, exam and lab findings the decision to treat as an inpatient was made. The patient remained stable while under my care. Administered Medications Discontinued Medications Tramadol HCl (Ultram) 50 mg PO NOW STA Stop: 04/20/19 16:32 Last Admin: 04/20/19 16:38 Dose: 50 mg Documented by: [id number] Medical Decision Making Differential Diagnosis Differential includes acute coronary syndrome, myocardial infarction, CVA, TIA, anemia, infection, pneumonia, UTI, pyelonephritis, poor nutrition, dehydration, electrolyte disturbance,hypoglycemia, as well as others were considered. Medical Records Attestation: I reviewed the patient's medical records. Home Medications Current Medication List: was personally reviewed by me Laboratory Data Attestation: I reviewed the patient's lab results. Result diagrams: 04/20/19 14:05 04/20/19 14:05 Lab Results 04/20/19 04/20/19 04/20/19 Range/Units 14:05 14:05 14:05 WBC 9.69 (4.8-10.8) K/uL RBC 5.02 (4.7-6.1) M/uL Hgb 15.9 (14.0-18.0) g/dL Hct 43.4 (42-52) % MCV 86.5 (80-100) fL MCH 31.7 (25-34) pg MCHC 36.6 H (32-36) g/dL RDW Std Deviation 39.4 (36.4-46.3) fL RDW Coeff of Yadira 12.4 (11.5-14.5) % Plt Count 185 (130-400) K/uL MPV 10.3 (7.4-10.4) fL Immature Gran % (Auto) 0.3 % Neut % (Auto) 81.7 % Lymph % (Auto) 10.2 % Bea[place]gard % (Auto) 7.7 % Eos % (Auto) 0.0 % Baso % (Auto) 0.1 % Immature Gran # (Auto) 0.03 H (0.00-0.02) K/uL Neut # (Auto) 7.91 H (1.4-6.5) K/uL Lymph # (Auto) 0.99 L (1.2-3.4) K/uL Bea[place]gard # (Auto) 0.75 H (0.11-0.59) K/uL Eos # (Auto) 0.00 (0-0.5) K/uL Baso # (Auto) 0.01 (0-0.2) K/uL Sodium 136 (136-145) mmol/L Potassium 3.2 L (3.5-5.1) mmol/L Chloride 97 L (98-107) mmol/L Carbon Dioxide 27 (21-32) mmol/L Anion Gap 11.0 (3-11) BUN 15 (7-18) mg/dl Creatinine 1.15 (0.6-1.4) mg/dl Est Cr Clr Drug Dosing 59.8 ml/min Est GFR ( Amer) 83.2 Est GFR (Non-Af Amer) 71.7 BUN/Creatinine Ratio 13.3 (10-20) Glucose 102 H (70-99) mg/dl Calcium 9.9 (8.5-10.1) mg/dl Total Bilirubin 1.0 (0.2-1) mg/dl AST 21 (15-37) U/L ALT 16 (12-78) U/L Alkaline Phosphatase 115 (45-117) U/L Total Protein 7.5 (6.4-8.2) gm/dl Albumin 4.4 (3.4-5.0) gm/dl Globulin 3.1 (2.5-4.0) gm/dl Albumin/Globulin Ratio 1.4 (0.9-2) TSH 0.645 (0.300-4.500) uIu/ml Specimen Hemolysis Valproic Acid < 3 L (50-100) mcg/ml Imaging Data Radiologist's Impression: Radiology results as stated below per my review and the radiologist's interpretation: XR chest 1V portable CLINICAL HISTORY: 53 years-old Male presenting with weakness. TECHNIQUE: Portable upright AP view of the chest was obtained. COMPARISON: 03/15/2019. FINDINGS: Cardiomediastinal silhouette normal. Lungs are hyperinflated. No focal opacity. No pleural effusion or pneumothorax. Suspected osteopenia. Redemonstration of the chronic right humeral neck fracture with nonbridging periosteal reaction. Mild gaseous distention of bowel beneath the diaphragm. No gross evidence of free gas. IMPRESSION: 1. Hyperinflation suggests underlying obstructive lung disease such as emphysema or asthma. No focal infiltrate to suggest pneumonia. 2. Chronic right humeral neck fracture with nonbridging periosteal reaction. This is likely in the setting of osteopenia. ACT 112: Negative or not required by law. Electronically signed by: Damian Juarez M.D. 04/20/2019 3:01 PM ECG Data Attestation: I personally reviewed and interpreted this ECG as follows: Indication: + other (medical clearance) Rate (beats per minute): 113 Rhythm: + sinus tachycardia ECG [place]: + Normal ECG Findings: + Other (poor baseline); no PVCs Blood Pressure Blood Pressure Findings: Elevated blood pressure Blood Pressure Disposition: Referred to patients primary care provider [facility] Narrative Patient is a 53-year-old male past medical history of right-sided deficit secondary to a CVA that presents the ER via EMS as his patent clerk and him got into an argument and the patent clerk left. The patent clerk was his power of tierce filler and no longer wants to take care of him. Mother will not take him home to her house. He is unable to care for himself. Patient denies any suicidal ho micidal ideations. He complains of left shoulder pain which is been present for years and unchanged. IV was established blood was obtained and showed no significant leukocytosis or anemia. BMP with mild hypokalemia 3.2. LFTs bilirubin and TSH was unremarkable. Valproic acid was low. Patient was given Ultram. Chest x-ray was unremarkable. He was observed in the ER and eventually discussed with Dr. Piper for observation as he has no current plan for placement and is unable to live on his own. He did remain slightly hypertensive while in the ER. OBSERVATION: Indication: awaiting bed placement Patient, who believes that he Dad may of had HTN Family History, Mom with no PMH, was first seen at 1328 hrs and the observation time began at 1328 hrs and was necessary in order to determine bed placement at an assisted living facility and avoid unnecessary admission . Upon re-evaluation, 6 hours of observation revealed that the patient should be observed in hospital. Disposition date and time 04/20/2019 at 730PM. Continuous Cardiac Monitoring: An order was placed for continuous cardiac monitoring. The monitor shows a rate of 113 with sinus rhythm. Impression & Plan Hypertension, Acute hypokalemia Discharge Plan Visit Data Chief Complaint: Medical Clearance Stated Complaint: Eval for [place] [facility] [place] placement ED Provider: Mustapha Ashraf Discharge Problem: Hypertension, Acute hypokalemia Forms Stand Alone Forms: My [facility] Prescriptions Prescriptions: No Action Prilosec OTC 20 mg tablet,delayed release (DR/EC) 40 mg PO DAILY Qty: 30 RF: 2 tramadol 50 mg tablet 50 mg PO TID PRN (Reason: Pain) Qty: 0 RF: 0 atorvastatin 40 mg Tablet 40 mg PO QAM 30 Days Qty: 30 RF: 2 aspirin [Ecotrin Low Strength] 81 mg Tablet,Delayed Release (Dr/Ec) 81 mg PO QAM 30 Days Qty: 30 RF: 2 divalproex 500 mg Tablet Extended Release 24 Hr 500 mg PO DAILY 30 Days Qty: 30 RF: 3 gabapentin 300 mg Capsule 300 mg PO BID 30 Days Qty: 60 RF: 3 mirtazapine 15 mg Tablet 7.5 mg PO HS 30 Days Qty: 15 RF: 2 metoprolol succinate 25 mg Tablet Extended Release 24 Hr 25 mg PO QAM 30 Days Qty: 30 RF: 2 Discharge Problem: Hypertension Qualifiers: Hypertension type: unspecified Qualified Code(s): I10 - Essential (primary) hypertension The scribe's documentation has been prepared under my direction and personally reviewed by me in its entirety. I confirm that the note above accurately reflects all work, treatment, procedures, and medical decision making performed by me.
--- NOTE | 2019-04-20 19:50 | History & Physical Report ---
Date of Service April 20, 2019 Assessment & Plan (1) Acute hypokalemia: 53-year-old male with history of expressive aphasia and right- sided hemiparesis secondary to left MCA ischemic stroke presenting to [facility] with placement needs. Presently resides at home and is cared for by his partner/POA. 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 He is requesting placement at a care facility K = 3.2 Potassium 40 mEq p.o. x1 Present on Admission?: Yes (2) H/O ischemic left MCA stroke: Chronic. Patient with right-sided hemiparesis, expressive aphasia. He communicates using a white board Continue aspirin 81 mg p.o. daily Continue atorvastatin PT/OT evaluation appreciated Case management assessment regarding placement Present on Admission?: Yes (3) Seizure disorder: Chronic. Stable. Presently no seizures Continue Divalproiex 500 mg p.o. daily Present on Admission?: Yes (4) Hypertension: Blood pressure mildly elevated Continue metoprolol 25 mg p.o. every morning Continue to monitor Present on Admission?: Yes (5) Hypercholesterolemia: Chronic. Stable. Continue atorvastatin 40 mg p.o. daily Present on Admission?: Yes (6) GERD without esophagitis: Chronic. Stable. Continue omeprazole 40 mg p.o. daily FENnormal saline at 80 mL/h x 1 L, monitor electrolytes and replete as needed, potassium 40 mEq p.o. x1 dose, heart healthy diet/easy to chew Prophylaxislow risk for DVT. Continue omeprazole 40 mg p.o. daily CodeDNR/DNI per discussion with patient Dispositionobservation to medical floor Present on Admission?: Yes History of Present Illness Chief Complaint: Placement needs Primary Care Provider: Ashia Thomas MD Jim Gardner is a pleasant 49-year-old female with history of expressive aphasia secondary to left MCA ischemic stroke with right-sided hemiplegia, seizure disorder, hypertension, neuropathy, GERD. Patient currently resides at home where he is cared for by his partner/POA. Patient had a fight today with his partner/POA today who stated that he no longer wants to help to care for the patient. His partner left for [facility]. The patient called EMS/Police and was requesting assistance for placement into a [facility]. Patient presently with complaint of left shoulder pain. No additional complaints at this time. He has history of depression with prior suicide attempts. Presently no SI/HI. ER Course: Tramadol 50mg po Allergies Allergy/AdvReac Type Severity Reaction Status Date / Time codeine Allergy Mild HIVES Verified 03/29/19 13:10 Home Medications Home Medications Medication Instructions Recorded Confirmed Type tramadol 50 mg PO TID PRN #0 tab 12/10/18 04/20/19 Rx aspirin [Ecotrin Low Strength] 81 mg PO QAM 30 Days #30 tab 03/19/19 03/29/19 Rx atorvastatin 40 mg PO QAM 30 Days #30 tab 03/19/19 04/20/19 Rx divalproex 500 mg PO DAILY 30 Days #30 tab 03/19/19 04/20/19 Rx gabapentin 300 mg PO BID 30 Days #60 cap 03/19/19 04/20/19 Rx metoprolol succinate 25 mg PO QAM 30 Days #30 tab 03/19/19 04/20/19 Rx mirtazapine 7.5 mg PO HS 30 Days #15 tab 03/19/19 04/20/19 Rx omeprazole magnesium 20 mg 40 mg PO DAILY #30 tab 03/29/19 04/20/19 Rx tablet,delayed release Past Med/Surg History Medical History Anemia (Chronic) ARF (acute renal failure) (02/03/14) Arterial ischemic stroke, MCA (middle cerebral artery), left, chronic (Resolved) Back pain (Chronic) Breakthrough seizure (Resolved) Cardiomyopathy (Chronic Unknown) 06/2013 - LVEF 20-25%. LV thrombus. Global Hypokinesis. 01/2014 - LVEF 50% LV thrombus resolved. Inferoapical wall abnormality. 09/2017 - LVEF 40-45%. Grade I diastolic dysfunction. Large LV apical thrombus. Cervical radiculopathy at C7 (Chronic) Change in mental status (Resolved) Hemiparesis (Resolved Unknown) "right hemiparesis " On 08/13/12 00:17 Ham Jacobs wrote "right hemiparesis " Hemorrhagic shock (Resolved) Hyperammonemia (Resolved) Hyperkalemia (Resolved) Hypomagnesemia (Resolved) Hyponatremia (Resolved Unknown) Hypoxia (Resolved 02/22/14) Ischemic stroke (Chronic Unknown) "left MCA received TPA echo- LV mural thrombus residual right hemiparesis + aphasia " Left shoulder pain (Resolved) Leg fracture, right (Resolved) Metabolic encephalopathy (Resolved 03/21/14) Seizure (Resolved) Sepsis (Unknown) Shoulder pain (Resolved) Suicide attempt (Chronic Unknown) Surgical History History of colonoscopy 05/19/2015 - Sigmoid diverticulosis and internal hemorrhoids. No masses or polyps. No biopsies taken. F/U 10 years (2025). 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: No Beliefs That Will Affect Care: None marital status: Single Current Living Situation: Significant Other Current Living Situation Comment: Júnior Vega (POA) Feels Safe at Home: No Is there a partner from a previous relationship who is making you feel unsafe now?: No Smoking Status: Former smoker Cigarettes Per Day: 2 ; Second Hand Exposure: No ; Hx Alcohol Use: No Hx Substance Use: No Review of Systems Review of Systems: All systems reviewed & are unremarkable except as noted in HPI & below Physical Exam Physical Exam: General: patient resting comfortably, NAD, non-toxic in appearance, AA&O x 4, patient with expressive aphasia. Communicates via wipe board Skin: warm, dry, intact, no rashes or lesions HEENT: NC/AT, PERRL, EOMI, anicteric sclera, conjunctiva without injection, external ear normal to inspection and nontender, nares patent, moist mucus membranes, dentition intact, no oropharyngeal lesions, neck supple, trachea midline, no LAD, no thyromegaly, no JVD Heart: +S1/S2, regular, no m/r/g Lungs: equal air entry bilaterally, no rales/rhonchi/wheezes Abd: +BS, soft, NT/ND, no masses/organomegaly/ascites Ext: warm, 2+ pulses in UE/LE bilaterally, no clubbing/cyanosis or edema Neuro: right sided hemiplegia from prior CVA Results & Data Vital Signs (Past 12 Hours) Vital Signs Temp Pulse Pulse Resp BP BP Pulse Ox 04/20/19 18:30 100 H 18 168/105 H 96 04/20/19 18:00 95 H 18 171/111 H 94 04/20/19 17:30 98 H 18 171/114 H 95 04/20/19 16:30 101 H 19 177/112 H 94 04/20/19 16:00 106 H 24 185/118 H 98 04/20/19 15:30 118 H 19 160/117 H 96 04/20/19 15:00 112 H 23 154/112 H 95 04/20/19 14:34 108 H 20 156/122 H 94 04/20/19 13:00 36.9 C 118 H 20 182/117 H 93 Laboratory Results Lab Results 04/20/19 04/20/19 04/20/19 Range/Units 14:05 14:05 14:05 WBC 9.69 (4.8-10.8) K/uL RBC 5.02 (4.7-6.1) M/uL Hgb 15.9 (14.0-18.0) g/dL Hct 43.4 (42-52) % MCV 86.5 (80-100) fL MCH 31.7 (25-34) pg MCHC 36.6 H (32-36) g/dL RDW Std Deviation 39.4 (36.4-46.3) fL RDW Coeff of Yadira 12.4 (11.5-14.5) % Plt Count 185 (130-400) K/uL MPV 10.3 (7.4-10.4) fL Immature Gran % (Auto) 0.3 % Neut % (Auto) 81.7 % Lymph % (Auto) 10.2 % [place] % (Auto) 7.7 % Eos % (Auto) 0.0 % Baso % (Auto) 0.1 % Immature Gran # (Auto) 0.03 H (0.00-0.02) K/uL Neut # (Auto) 7.91 H (1.4-6.5) K/uL Lymph # (Auto) 0.99 L (1.2-3.4) K/uL [place] # (Auto) 0.75 H (0.11-0.59) K/uL Eos # (Auto) 0.00 (0-0.5) K/uL Baso # (Auto) 0.01 (0-0.2) K/uL Sodium 136 (136-145) mmol/L Potassium 3.2 L (3.5-5.1) mmol/L Chloride 97 L (98-107) mmol/L Carbon Dioxide 27 (21-32) mmol/L Anion Gap 11.0 (3-11) BUN 15 (7-18) mg/dl Creatinine 1.15 (0.6-1.4) mg/dl Est Cr Clr Drug Dosing 59.8 ml/min Est GFR ( Amer) 83.2 Est GFR (Non-Af Amer) 71.7 BUN/Creatinine Ratio 13.3 (10-20) Glucose 102 H (70-99) mg/dl Calcium 9.9 (8.5-10.1) mg/dl Total Bilirubin 1.0 (0.2-1) mg/dl AST 21 (15-37) U/L ALT 16 (12-78) U/L Alkaline Phosphatase 115 (45-117) U/L Total Protein 7.5 (6.4-8.2) gm/dl Albumin 4.4 (3.4-5.0) gm/dl Globulin 3.1 (2.5-4.0) gm/dl Albumin/Globulin Ratio 1.4 (0.9-2) TSH 0.645 (0.300-4.500) uIu/ml Specimen Hemolysis Valproic Acid < 3 L (50-100) mcg/ml Diagnostic Findings XR chest 1V portable CLINICAL HISTORY: 53 years-old Male presenting with weakness. TECHNIQUE: Portable upright AP view of the chest was obtained. COMPARISON: 03/15/2019. FINDINGS: Cardiomediastinal silhouette normal. Lungs are hyperinflated. No focal opacity. No pleural effusion or pneumothorax. Suspected osteopenia. Redemonstration of the chronic right humeral neck fracture with nonbridging periosteal reaction. Mild gaseous distention of bowel beneath the diaphragm. No gross evidence of free gas. IMPRESSION: 1. Hyperinflation suggests underlying obstructive lung disease such as emphysema or asthma. No focal infiltrate to suggest pneumonia. 2. Chronic right humeral neck fracture with nonbridging periosteal reaction. This is likely in the setting of osteopenia. ACT 112: Negative or not required by law. Electronically signed by: Damian Juarez M.D. 04/20/2019 3:01 PM Dictated: 04/20/19 1459 Code Status & VTE Plan Code Status DNR/DNI per discussion with patient PG Care Time/CCT Total # of Minutes Spent Total Time Spent with Patient: Total time spent is greater than 50% in coordination of care (as documented) at patient's floor/unit and/or counseling patient: Coding Level of Care Code 32045 OBS Care - Level 3 Diagnoses Acute hypokalemia E87.6 H/O ischemic left MCA stroke Z86.73 Seizure disorder G40.909 Hypertension I10 Hypertension type: unspecified Hypercholesterolemia E78.00 GERD without esophagitis K21.9 (1) Hypertension Hypertension type: unspecified Qualified Code(s): I10 - Essential (primary) hypertension
[2019-04-20] MEDS ORDERED: POTASSIUM CHLORIDE 20 MEQ TABCR PO STA (20:36)
[2019-04-20] MEDS ORDERED: ONDANSETRON INJ 2 MG/ML 2 ML VIAL IV PRN (20:36)
[2019-04-20] MEDS ORDERED: SODIUM CHLORIDE 0.9% 1000ML 1,000 ML IV SCH (20:36)
[2019-04-20] MEDS: GABAPENTIN 300 MG CAP PO SCH (22:12)
[2019-04-20] MEDS: MIRTAZAPINE TAB 15 MG TAB PO SCH (22:12)
[2019-04-20] MEDS: TRAMADOL HCL 50 MG TABLET PO PRN (22:18)
[2019-04-20] MEDS ORDERED: METOPROLOL TARTRATE 25 MG TAB PO STA (22:55)
[2019-04-21] MEDS ORDERED: INFLUENZA VIRUS QUAD VACCINE 0.5 ML SYR IM ONE (07:00)
[2019-04-21] MEDS ORDERED: INFLUENZA ADMINISTRATION CHARGE ONE (07:00)
[2019-04-21] MEDS: TRAMADOL HCL 50 MG TABLET PO PRN ×4 (08:12→21:46)
[2019-04-21] MEDS: ASPIRIN 81 MG ECTAB PO SCH (08:15)
[2019-04-21] MEDS: METOPROLOL SUCC 25MG EXT REL TAB PO SCH (08:15)
[2019-04-21] MEDS: DIVALPROEX EXTENDED RELEASE 500 MG TAB PO SCH (08:16)
[2019-04-21] MEDS: PANTOprazole 40 MG TAB PO SCH (08:16)
[2019-04-21] MEDS: GABAPENTIN 300 MG CAP PO SCH ×2 (08:16→21:48)
[2019-04-21] MEDS: ATORVASTATIN 40 MG TAB PO SCH (08:16)
[2019-04-21] MEDS ORDERED: TRAMADOL HCL 50 MG TABLET PO STA (11:34)
--- NOTE | 2019-04-21 11:40 | Hospitalist Progress Note ---
Date of Service April 21, 2019 Assessment & Plan (1) H/O ischemic left MCA stroke: Jim is a 53-year-old male with a past medical history of left MCA ischemic stroke with resultant severe expressive aphasia and right-sided hemiparesis, depression/anxiety, GERD, chronic bilateral shoulder pain, chronic right humeral fracture with osteopenia, seizure disorder, and hypertension who presents to the hospital for placement needs. He has previously resided at home and was cared for by his partner/POA with whom he had an argument and whom left for [place]. He is requesting placement at a nursing care facility. History of ischemic left MCA stroke with resultant right hemiplegia and severe expressive aphasia Supplement communication with whiteboard Aspirin 81 mg p.o. daily Atorvastatin 40 mg p.o. daily PT/OT pending Ruy with case management. No bed available at [facility] at this time, pending discussion with [facility]. Seizure disorder Last seizure 03/15/19, [facility] with mood Continue divalproex 500 mg p.o. daily Patient also on gabapentin as below Chronic neuropathy, chronic pain Continue gabapentin 300 mg p.o. twice daily Continue tramadol 50 mg p.o. 3 times daily as needed Tylenol 650 mg p.o. every 4 hours Right humeral fracture, osteopenia - R humeral neck fxr 2/2 seizure and fall from wheelchair. Seen in hospital 03/15/19-03/19/19 - At that time other recommended nonoperative closed management, use of a sling for 3-4 weeks. Supportive care, ice, anti-inflammatories if approved by medical service. Follow up with Dr. Yi in clinic for followup x-rays. Supplemental calcium, vitamin D daily PCP followup last 03/29/2019, unclear when next Ortho appt - Continue tramadol, gabapentin, APAP for pain - Toradol 10mg IV Depression Continue mirtazapine 7.5 mg p.o. nightly SSRI? Hypertension Continue metoprolol 25 mg p.o. every morning GERD Continue Protonix 40 mg p.o. daily FEN GI: Heart healthy diet, easy to chew DVT prophylaxis: CODE STATUS: DNR/DNI Disposition: Planning ongoing (2) Closed right humeral fracture: (3) Major depression, recurrent: (4) Acute hypokalemia: (5) Myofascial pain: (6) Chronic left shoulder pain: (7) Right shoulder pain: (8) Polyneuropathy: (9) GERD without esophagitis: (10) Expressive aphasia: (11) Back pain: Admission and Anticipated Discharge Date Admission Date: April 20, 2019 Supervising Physician Co-Signing Physician Notes I supervised Damian Davila MD on this patient's care. I examined the patient today independently of him. I discussed the plan of care with him with the plan being as written in his note except for any following changes/exceptions: None. 53yo M w/ hx of CVA wtih residual right-sided paralysis. Lost his caregiver at home due to argument. Now is hoping to get placed. Is reporting some left shoulder pain. Review of Systems Review of Systems: History limited by severe dysarthria, communication supplemented with whiteboard. Constitutional: Denies fever, chills Eyes: Denies vision change ENT: Denies sore throat Cardiovascular: Denies Chest pain, chest pressure, palpitations Respiratory: Denies shortness of breath, cough, sputum production, difficulty breathing Gastrointestinal: Denies abdominal pain, nausea Genitourinary: Denies pain with urination Musculoskeletal: Chronic right-sided hemiplegia. Endorses right neck, shoulder, arm pain chronic at baseline Integumentary: No skin changes Neurological: Denies acute numbness/tingling/focal weakness. Baseline hemiplegia as above Physical Exam Physical Exam: General: A&Ox3. NAD. Nontoxic. Communication limited by dysarthria and severe expressive aphasia. Communication supplemented with whiteboard. HEENT: Atraumatic, normocephalic. Pupils equal and reactive to light and accommodation. Visual acuity grossly intact. Mucous membranes tacky. Pulm: CTAB A&P. -wheezes, -rales, -rhonchi. Symmetrical chest rise. No increase work of breathing. No respiratory distress. Cardiac: RRR, -mrg. Radial pulses intact and symmetrical. Abdominal: Nontender, nondistended, soft. BS present. Extremities: Moving left upper and lower extremities without restriction. 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 Chronic right-sided jacob- plegia. Results & Data ([facility]) Vital Signs (Past 12 Hours) Vital Signs Temp Pulse Resp BP Pulse Ox 04/21/19 09:34 36.6 C 70 16 154/85 H 96 03/07/20 22:54 36.6 C 95 H 20 164/90 H 98 Resident Activity Tracking Resident Involvement: Resident Care Provided Care Provided: Adult Hospital Medicine (1) Major depression, recurrent Active/Remission status: currently active Major depression episode severity: unspecified Qualified Code(s): F33.9 - Major depressive disorder, recurrent, unspecified
[2019-04-21] MEDS: KETOROLAC TROMETHAMINE 15 MG/ML VIAL IV PRN (15:06)
[2019-04-21] MEDS ORDERED: SODIUM CHLORIDE 0.9% 1000ML 500 ML IV ONE (15:45)
--- NOTE | 2019-04-21 17:51 | Billing Data ---
Date of Service April 21, 2019 Coding Level of Care Code 49617 Subseq Obs Care Lvl 2
[2019-04-21] MEDS: MIRTAZAPINE TAB 15 MG TAB PO SCH (21:47)
[2019-04-22] MEDS: KETOROLAC TROMETHAMINE 15 MG/ML VIAL IV PRN ×2 (01:37→09:11)
[2019-04-22] MEDS: DIVALPROEX EXTENDED RELEASE 500 MG TAB PO SCH (07:51)
[2019-04-22] MEDS: ATORVASTATIN 40 MG TAB PO SCH (07:51)
[2019-04-22] MEDS: CALCIUM 600MG + VIT D 400 IU TAB PO SCH (07:51)
[2019-04-22] MEDS: ASPIRIN 81 MG ECTAB PO SCH (07:51)
[2019-04-22] MEDS: GABAPENTIN 300 MG CAP PO SCH ×2 (07:51→21:01)
[2019-04-22] MEDS: METOPROLOL SUCC 25MG EXT REL TAB PO SCH (07:52)
[2019-04-22] MEDS: PANTOprazole 40 MG TAB PO SCH (07:52)
[2019-04-22 08:39] LABS: Basophils # (auto) 0.03 K/uL (0-0.2); Basophils % (auto) 0.5 %; Eosinophils # (auto) 0.09 K/uL (0-0.5); Eosinophils % (auto) 1.5 %; Hematocrit (blood only) 41.7 % (42-52); Hemoglobin 14.9 g/dL (14.0-18.0); Immature Granulocytes # (auto) 0.02 K/uL (0.00-0.02); Immature Granulocytes % (auto) 0.3 %; Lymphocytes # (auto) 2.61 K/uL (1.2-3.4); Lymphocytes % (auto) 44.8 %; Mean Corpuscular Hemoglobin 31.8 pg (25-34); Mean Corpuscular Hgb Conc 35.7 g/dL (32-36); Mean Corpuscular Volume 88.9 fL (80-100); Mean Platelet Volume 10.5 fL (7.4-10.4); Neutrophils # (auto) 2.37 K/uL (1.4-6.5); Neutrophils % (auto) 40.9 %; Platelet Count 173 K/uL (130-400); RDW Coefficient of Variation 12.6 % (11.5-14.5); Red Blood Count 4.69 M/uL (4.7-6.1); White Blood Count 5.82 K/uL (4.8-10.8)
[2019-04-22 09:19] LABS: BUN Creatinine Ratio 17.3 (10-20); Est GFR (African American) 112.3; Est GFR (Non-African American) 96.9; Potassium 3.4 mmol/L (3.5-5.1)
[2019-04-22] MEDS: TRAMADOL HCL 50 MG TABLET PO PRN ×2 (10:24→21:02)
[2019-04-22] MEDS: D5NSS + 20MEQ KCL 20 MEQ/1,000 ML BAG IV SCH ×2 (10:27→23:25)
--- NOTE | 2019-04-22 13:03 | Electrocardiogram Report ---
Test Reason : Blood Pressure : / mmHG Vent. Rate : 113 BPM Atrial Rate : 113 BPM P-R Int : 136 ms QRS Dur : 086 ms QT Int : 366 ms P-R-T Axes : 074 036 064 degrees QTc Int : 502 ms Poor data quality, interpretation may be adversely affected Sinus tachycardia Possible Left atrial enlargement Left ventricular hypertrophy Inferior infarct (cited on or before 19-NOV-2013) Anterior infarct , age undetermined Abnormal ECG When compared with ECG of 15-MAR-2019 03:56, No significant change was found Confirmed by Isaac Huizar ([id number]) on 04/22/2019 1:03:46 PM Referred By: REFERRED SELF Confirmed By:Isaac Huizar
--- NOTE | 2019-04-22 14:21 | Hospitalist Progress Note ---
Date of Service April 22, 2019 Assessment & Plan (1) H/O ischemic left MCA stroke: Jim is a 53-year-old male with a past medical history of left MCA ischemic stroke with resultant severe expressive aphasia and right-sided hemiparesis, depression/anxiety, GERD, chronic bilateral shoulder pain, chronic right humeral fracture with osteopenia, seizure disorder, and hypertension who presents to the hospital for placement needs. He has previously resided at home and was cared for by his partner/POA with whom he had an argument and whom left for [place]. He is requesting placement at a nursing care facility. History of ischemic left MCA stroke with resultant right hemiplegia and severe expressive aphasia Supplement communication with whiteboard Aspirin 81 mg p.o. daily Atorvastatin 40 mg p.o. daily PT/OT eval- recs snf placement Discussed with case management. No bed available at [facility] at this time, pending discussion with [facility]. Also awaiting [facility] Seizure disorder Last seizure 03/15/19, harrison deffered for [facility] for secondary help with mood Continue divalproex 500 mg p.o. daily Patient also on gabapentin as below Chronic neuropathy, chronic pain Continue gabapentin 300 mg p.o. twice daily Continue tramadol 50 mg p.o. 3 times daily as needed Tylenol 650 mg p.o. every 4 hours Right humeral fracture, osteopenia - R humeral neck fxr 2/2 seizure and fall from wheelchair. Seen in hospital 03/15/19-03/19/19 - At that time other recommended nonoperative closed management, use of a sling for 3-4 weeks. Supportive care, ice, anti-inflammatories if approved by medical service. Follow up with Dr. Yi in clinic for followup x-rays. Supplemental calcium, vitamin D daily PCP followup last 03/29/2019, unclear when next Ortho appt - Continue tramadol, gabapentin, APAP for pain - Toradol 10mg IV Depression Continue mirtazapine 7.5 mg p.o. nightly. Consider increasing dose. Has been declining food. Has had consultation with palliative care. -continue supportive care. -add IVF - D5NSS Hypertension Continue metoprolol 25 mg p.o. every morning GERD Continue Protonix 40 mg p.o. daily FEN/GI: HH Diet DVT prophylaxis: Low Risk. Ambulation. DNR/DNI Dispo: Med Surg. Awaiting snf placement. Appreciate CM assistance. Admission and Anticipated Discharge Date Admission Date: April 22, 2019 Supervising Physician Co-Signing Physician Notes Resident Physician Supervision Note: I independently interviewed and examined the patient and verified the mark history and physical, reviewed labs and image studies, discussed the case with the resident Dr. Palencia and agree with the findings and care plan. Subjective 53 yo M found in bed this AM in NAD. No overnight events. Tolerating PO intake. No issues voiding. Pt with no other acute concerns or complaints. Review of Systems Review of Systems: All systems reviewed & are unremarkable except as noted in HPI & below Physical Exam Constitutional: WD/WN, vitals as above + thin and + language barrier (expressive aphasia) Eyes: PERRL, conjunctivae normal, anicteric sclerae ENMT: external ear and nose normal, oropharynx normal Respiratory: normal respiratory effort, lungs clear to auscultation Cardiovascular: RRR, no murmur, no edema Gastrointestinal (Abdomen): normal bowel sounds, soft, nontender, no hepatosplenomegaly Musculoskeletal: chronic R sided hemiplegia Skin: no rashes, warm and dry Psychiatric: A+Ox3, euthymic affect Results & Data ([facility]) Vital Signs (Past 12 Hours) Vital Signs Temp Pulse Resp BP Pulse Ox 04/22/19 07:32 36.8 C 63 16 160/86 H 98 Laboratory Results Laboratory Results - last 24 hr 04/22/19 04/22/19 04/22/19 07:56 07:56 09:48 WBC 5.82 RBC 4.69 L Hgb 14.9 Hct 41.7 L MCV 88.9 MCH 31.8 MCHC 35.7 RDW Std Deviation 40.0 RDW Coeff of Yadira 12.6 Plt Count 173 MPV 10.5 H Immature Gran % (Auto) 0.3 Neut % (Auto) 40.9 Lymph % (Auto) 44.8 [place] % (Auto) 12.0 Eos % (Auto) 1.5 Baso % (Auto) 0.5 Immature Gran # (Auto) 0.02 Neut # (Auto) 2.37 Lymph # (Auto) 2.61 [place] # (Auto) 0.70 H Eos # (Auto) 0.09 Baso # (Auto) 0.03 Sodium 138 Potassium 3.4 L Chloride 100 Carbon Dioxide 24 Anion Gap 13.0 H BUN 15 Creatinine 0.89 Est Cr Clr Drug Dosing 70.0 Est GFR ( Amer) 112.3 Est GFR (Non-Af Amer) 96.9 BUN/Creatinine Ratio 17.3 Glucose 51 L* POC Glucose 73 Calcium 9.0 Medications Administered Current Inpatient Medications Acetaminophen (Tylenol) 650 mg PO Q4H PRN PRN Reason: pain/fever Stop: 05/20/19 20:35 Aspirin (Ecotrin Ectab) 81 mg PO DAILY [facility] Stop: 05/21/19 08:59 Last Admin: 04/22/19 07:51 Dose: 81 mg Documented by: Atorvastatin Calcium (Lipitor) 40 mg PO QAM [facility] Stop: 05/21/19 08:59 Last Admin: 04/22/19 07:51 Dose: 40 mg Documented by: Divalproex Sodium (Depakote Extended Release) 500 mg PO DAILY [facility] Stop: 05/21/19 08:59 Last Admin: 04/22/19 07:51 Dose: 500 mg Documented by: Gabapentin (Neurontin) 300 mg PO BID [facility] Stop: 05/20/19 20:59 Last Admin: 04/22/19 07:51 Dose: 300 mg Documented by: Potassium Chloride/Dextrose/Sod Cl (D5nss + 20meq Kcl) 20 meq in 1,000 mls @ 80 mls/hr IV .[id number] [facility] Stop: 05/22/19 09:59 Last Admin: 04/22/19 10:27 Dose: 80 mls/hr Documented by: Ketorolac Tromethamine (Toradol) 10 mg IV Q6H PRN PRN Reason: pain Stop: 04/26/19 14:41 Last Admin: 04/22/19 09:11 Dose: 10 mg Documented by: Metoprolol Succinate (Toprol Xl) 25 mg PO QAM [facility] Stop: 05/21/19 08:59 Last Admin: 04/22/19 07:52 Dose: 25 mg Documented by: Mirtazapine (Remeron) 7.5 mg PO HS [facility] Stop: 05/20/19 20:59 Last Admin: 04/21/19 21:47 Dose: 7.5 mg Documented by: Multivitamins/Minerals (Caltrate Plus) 1 tab PO DAILY [facility] Stop: 05/22/19 08:59 Last Admin: 04/22/19 07:51 Dose: 1 tab Documented by: Ondansetron HCl (Zofran) 4 mg IV Q6H PRN PRN Reason: Nausea Stop: 05/20/19 20:35 Pantoprazole Sodium (Protonix) 40 mg PO DAILY [facility] Stop: 05/21/19 08:59 Last Admin: 04/22/19 07:52 Dose: 40 mg Documented by: Tramadol HCl (Ultram) 50 mg PO TID PRN PRN Reason: Pain Stop: 05/20/19 20:35 Last Admin: 04/22/19 10:24 Dose: 50 mg Documented by: Resident Activity Tracking Resident Involvement: Resident Care Provided Care Provided: Adult Hospital Medicine
[2019-04-22] MEDS: MIRTAZAPINE TAB 15 MG TAB PO SCH (21:06)
[2019-04-23] MEDS: KETOROLAC TROMETHAMINE 15 MG/ML VIAL IV PRN (03:44)
[2019-04-23] MEDS: ACETAMINOPHEN 325 MG TAB PO PRN ×3 (05:10→15:24)
[2019-04-23 06:24] LABS: Hematocrit (blood only) 37.6 % (42-52); Hemoglobin 13.3 g/dL (14.0-18.0); Mean Corpuscular Hemoglobin 31.1 pg (25-34); Mean Corpuscular Hgb Conc 35.4 g/dL (32-36); Mean Corpuscular Volume 88.1 fL (80-100); Mean Platelet Volume 10.1 fL (7.4-10.4); Platelet Count 153 K/uL (130-400); RDW Coefficient of Variation 12.6 % (11.5-14.5); RDW Standard Deviation 40.2 fL (36.4-46.3); Red Blood Count 4.27 M/uL (4.7-6.1); White Blood Count 4.36 K/uL (4.8-10.8)
[2019-04-23 07:00] LABS: BUN Creatinine Ratio 10.3 (10-20); Calcium 8.9 mg/dl (8.5-10.1); Est GFR (African American) 116.2; Est GFR (Non-African American) 100.3; Potassium 3.3 mmol/L (3.5-5.1)
[2019-04-23] MEDS ORDERED: POTASSIUM CHLORIDE 20 MEQ TABCR PO STA (07:04)
[2019-04-23 07:06] LABS: Basophils # (auto) 0.02 K/uL (0-0.2); Basophils % (auto) 0.5 %; Eosinophils # (auto) 0.09 K/uL (0-0.5); Eosinophils % (auto) 2.1 %; Immature Granulocytes # (auto) 0.01 K/uL (0.00-0.02); Immature Granulocytes % (auto) 0.2 %; Lymphocytes # (auto) 2.36 K/uL (1.2-3.4); Lymphocytes % (auto) 54.1 %; Monocytes # (auto) 0.67 K/uL (0.11-0.59); Monocytes % (auto) 15.4 %; Neutrophils # (auto) 1.21 K/uL (1.4-6.5); Neutrophils % (auto) 27.7 %
[2019-04-23] MEDS: TRAMADOL HCL 50 MG TABLET PO PRN ×2 (08:33→17:27)
[2019-04-23] MEDS: METOPROLOL SUCC 25MG EXT REL TAB PO SCH (08:34)
[2019-04-23] MEDS: ATORVASTATIN 40 MG TAB PO SCH (08:34)
[2019-04-23] MEDS: GABAPENTIN 300 MG CAP PO SCH ×2 (08:34→21:15)
[2019-04-23] MEDS: PANTOprazole 40 MG TAB PO SCH (08:34)
[2019-04-23] MEDS: CALCIUM 600MG + VIT D 400 IU TAB PO SCH (08:34)
[2019-04-23] MEDS: DIVALPROEX EXTENDED RELEASE 500 MG TAB PO SCH (08:35)
[2019-04-23] MEDS: ASPIRIN 81 MG ECTAB PO SCH (08:35)
--- NOTE | 2019-04-23 10:59 | Hospitalist Progress Note ---
Date of Service April 23, 2019 Assessment & Plan (1) H/O ischemic left MCA stroke: Jim is a 53-year-old male with a past medical history of left MCA ischemic stroke with resultant severe expressive aphasia and right-sided hemiparesis, depression/anxiety, GERD, chronic bilateral shoulder pain, chronic right humeral fracture with osteopenia, seizure disorder, and hypertension who presents to the hospital for placement needs. He has previously resided at home and was cared for by his partner/POA with whom he had an argument and whom left for [place]. He is requesting placement at a nursing care facility. History of ischemic left MCA stroke with resultant right hemiplegia and severe expressive aphasia Supplement communication with whiteboard Aspirin 81 mg p.o. daily Atorvastatin 40 mg p.o. daily PT/OT eval- recs snf placement Discussed with case management. No bed available at [facility] at this time, pending discussion with [facility]. Also awaiting [facility] -Has been evaluated by palliative care on multiple occasion in past - reviewed note. Spoke to them - No new input at this time. Depression Continue mirtazapine 7.5 mg p.o. nightly. Will increase dose to 15 mg nightly Has been declining food. Has had consultation with palliative care from Nov 2018- recs snf placement -Psych consult for Mar 1804/2019 for SI: would not resume SSRI or Seroquel at this time, if needed/backslides would titrate Remeron in 7.5 mg increments -pt declines further psych consult at this time -continue supportive care. Add IVF - D5NSS Seizure disorder Last seizure 03/15/19, harrison gilmorefered for depakote for secondary help with mood Continue divalproex 500 mg p.o. daily Patient also on gabapentin as below -Will be careful about increasing tramadol dosage as it can lower the seizure threshold Chronic neuropathy, chronic pain Continue gabapentin 300 mg p.o. twice daily Continue tramadol 50 mg p.o. 3 times daily as needed Tylenol 650 mg p.o. every 4 hours Right humeral fracture, osteopenia - R humeral neck fxr 2/2 seizure and fall from wheelchair. Seen in hospital 03/15/19-03/19/19 - At that time other recommended nonoperative closed management, use of a sling for 3-4 weeks. Supportive care, ice, anti-inflammatories if approved by medical service. Follow up with Dr. Yi in clinic for followup x-rays. Supplemental calcium, vitamin D daily PCP followup last 03/29/2019, unclear when next Ortho appt - Continue tramadol, gabapentin, APAP for pain - Toradol 10mg IV Hypertension Continue metoprolol 25 mg p.o. every morning GERD Continue Protonix 40 mg p.o. daily FEN/GI: HH Diet. IVF - D5NSS DVT prophylaxis: Low Risk. Ambulation. DNR/DNI Dispo: Med Surg. Awaiting snf placement. Appreciate CM assistance. Admission and Anticipated Discharge Date Admission Date: April 22, 2019 Supervising Physician Co-Signing Physician Notes Resident Physician Supervision Note: I independently interviewed and examined the patient and verified the mark history and physical, reviewed labs and image studies, discussed the case with the resident Dr. Palencia and agree with the findings and care plan. Subjective 53 yo M found in bed this AM in NAD. No overnight events. Tolerating PO intake. No issues voiding. Pt with no other acute concerns or complaints. Awaiting placement. Physical Exam Constitutional: WD/WN, vitals as above + thin and + language barrier (expressive aphasia) Eyes: PERRL, conjunctivae normal, anicteric sclerae ENMT: external ear and nose normal, oropharynx normal Respiratory: normal respiratory effort, lungs clear to auscultation Cardiovascular: RRR, no murmur, no edema Gastrointestinal (Abdomen): normal bowel sounds, soft, nontender, no hepatosplenomegaly Skin: no rashes, warm and dry Neurologic: Motor/Sensory: + abnormal movement (R sided hemiparesis) Psychiatric: A+Ox3, euthymic affect Results & Data ([facility]) Vital Signs (Past 12 Hours) Vital Signs Temp Pulse Pulse Resp BP Pulse Ox 04/23/19 07:30 36.6 C 65 18 163/85 H 97 04/22/19 23:34 36.4 C L 64 18 146/86 H 94 Laboratory Results Laboratory Results - last 24 hr 04/23/19 04/23/19 06:00 06:00 WBC 4.36 L RBC 4.27 L Hgb 13.3 L Hct 37.6 L MCV 88.1 MCH 31.1 MCHC 35.4 RDW Std Deviation 40.2 RDW Coeff of Yadira 12.6 Plt Count 153 MPV 10.1 Immature Gran % (Auto) 0.2 Neut % (Auto) 27.7 Lymph % (Auto) 54.1 [place] % (Auto) 15.4 Eos % (Auto) 2.1 Baso % (Auto) 0.5 Immature Gran # (Auto) 0.01 Neut # (Auto) 1.21 L Lymph # (Auto) 2.36 [place] # (Auto) 0.67 H Eos # (Auto) 0.09 Baso # (Auto) 0.02 Sodium 141 Potassium 3.3 L Chloride 109 H Carbon Dioxide 27 Anion Gap 5.0 BUN 8 D Creatinine 0.82 Est Cr Clr Drug Dosing 76.0 Est GFR ( Amer) 116.2 Est GFR (Non-Af Amer) 100.3 BUN/Creatinine Ratio 10.3 Glucose 104 H Calcium 8.9 Medications Administered Current Inpatient Medications Acetaminophen (Tylenol) 650 mg PO Q4H PRN PRN Reason: pain/fever Stop: 05/20/19 20:35 Last Admin: 04/23/19 05:10 Dose: 650 mg Documented by: Aspirin (Ecotrin Ectab) 81 mg PO DAILY [facility] Stop: 05/21/19 08:59 Last Admin: 04/23/19 08:35 Dose: 81 mg Documented by: Atorvastatin Calcium (Lipitor) 40 mg PO QAM [facility] Stop: 05/21/19 08:59 Last Admin: 04/23/19 08:34 Dose: 40 mg Documented by: Divalproex Sodium (Depakote Extended Release) 500 mg PO DAILY [facility] Stop: 05/21/19 08:59 Last Admin: 04/23/19 08:35 Dose: 500 mg Documented by: Gabapentin (Neurontin) 300 mg PO BID [facility] Stop: 05/20/19 20:59 Last Admin: 04/23/19 08:34 Dose: 300 mg Documented by: Potassium Chloride/Dextrose/Sod Cl (D5nss + 20meq Kcl) 20 meq in 1,000 mls @ 80 mls/hr IV .[id number] [facility] Stop: 05/22/19 09:59 Last Admin: 04/22/19 23:25 Dose: 80 mls/hr Documented by: Ketorolac Tromethamine (Toradol) 10 mg IV Q6H PRN PRN Reason: pain Stop: 04/26/19 14:41 Last Admin: 04/23/19 03:44 Dose: 10 mg Documented by: Metoprolol Succinate (Toprol Xl) 25 mg PO QAM [facility] Stop: 05/21/19 08:59 Last Admin: 04/23/19 08:34 Dose: 25 mg Documented by: Mirtazapine (Remeron) 7.5 mg PO HS [facility] Stop: 05/20/19 20:59 Last Admin: 04/22/19 21:06 Dose: 7.5 mg Documented by: Multivitamins/Minerals (Caltrate Plus) 1 tab PO DAILY [facility] Stop: 05/22/19 08:59 Last Admin: 04/23/19 08:34 Dose: 1 tab Documented by: Ondansetron HCl (Zofran) 4 mg IV Q6H PRN PRN Reason: Nausea Stop: 05/20/19 20:35 Pantoprazole Sodium (Protonix) 40 mg PO DAILY [facility] Stop: 05/21/19 08:59 Last Admin: 04/23/19 08:34 Dose: 40 mg Documented by: Tramadol HCl (Ultram) 50 mg PO TID PRN PRN Reason: Pain Stop: 05/20/19 20:35 Last Admin: 04/23/19 08:33 Dose: 50 mg Documented by: Resident Activity Tracking Resident Involvement: Resident Care Provided Care Provided: Adult Hospital Medicine
[2019-04-23] MEDS: D5NSS + 20MEQ KCL 20 MEQ/1,000 ML BAG IV SCH (11:28)
[2019-04-23] MEDS: MIRTAZAPINE TAB 15 MG TAB PO SCH (21:15)
[2019-04-24] MEDS: D5NSS + 20MEQ KCL 20 MEQ/1,000 ML BAG IV SCH ×2 (00:03→12:03)
[2019-04-24] MEDS: KETOROLAC TROMETHAMINE 15 MG/ML VIAL IV PRN ×4 (02:11→21:04)
[2019-04-24] MEDS: ACETAMINOPHEN 325 MG TAB PO PRN ×5 (05:15→22:46)
[2019-04-24 06:32] LABS: Basophils # (auto) 0.02 K/uL (0-0.2); Basophils % (auto) 0.4 %; Eosinophils # (auto) 0.12 K/uL (0-0.5); Eosinophils % (auto) 2.4 %; Hematocrit (blood only) 42.7 % (42-52); Immature Granulocytes # (auto) 0.01 K/uL (0.00-0.02); Immature Granulocytes % (auto) 0.2 %; Lymphocytes % (auto) 46.7 %; Mean Corpuscular Hemoglobin 31.7 pg (25-34); Mean Corpuscular Hgb Conc 35.1 g/dL (32-36); Mean Corpuscular Volume 90.3 fL (80-100); Mean Platelet Volume 10.3 fL (7.4-10.4); Monocytes % (auto) 16.3 %; Neutrophils # (auto) 1.67 K/uL (1.4-6.5); Platelet Count 169 K/uL (130-400); RDW Coefficient of Variation 12.8 % (11.5-14.5); RDW Standard Deviation 42.3 fL (36.4-46.3); Red Blood Count 4.73 M/uL (4.7-6.1); White Blood Count 4.92 K/uL (4.8-10.8)
[2019-04-24 07:05] LABS: BUN Creatinine Ratio 5.6 (10-20); Calcium 9.4 mg/dl (8.5-10.1); Est GFR (African American) 116.2; Est GFR (Non-African American) 100.3; Potassium 4.7 mmol/L (3.5-5.1)
[2019-04-24] MEDS: DIVALPROEX EXTENDED RELEASE 500 MG TAB PO SCH (08:06)
[2019-04-24] MEDS: PANTOprazole 40 MG TAB PO SCH (08:06)
[2019-04-24] MEDS: ATORVASTATIN 40 MG TAB PO SCH (08:06)
[2019-04-24] MEDS: TRAMADOL HCL 50 MG TABLET PO PRN ×4 (08:06→21:04)
[2019-04-24] MEDS: ASPIRIN 81 MG ECTAB PO SCH (08:06)
[2019-04-24] MEDS: GABAPENTIN 300 MG CAP PO SCH ×2 (08:06→21:04)
[2019-04-24] MEDS: CALCIUM 600MG + VIT D 400 IU TAB PO SCH (08:06)
[2019-04-24] MEDS: METOPROLOL SUCC 25MG EXT REL TAB PO SCH (08:06)
--- NOTE | 2019-04-24 14:49 | Hospitalist Progress Note ---
Date of Service April 24, 2019 Assessment & Plan (1) H/O ischemic left MCA stroke: Jim is a 53-year-old male with a past medical history of left MCA ischemic stroke with resultant severe expressive aphasia and right-sided hemiparesis, depression/anxiety, GERD, chronic bilateral shoulder pain, chronic right humeral fracture with osteopenia, seizure disorder, and hypertension who presents to the hospital for placement needs. He has previously resided at home and was cared for by his partner/POA with whom he had an argument and whom left for [place]. He is requesting placement at a nursing care facility. History of ischemic left MCA stroke with resultant right hemiplegia and severe expressive aphasia Supplement communication with whiteboard Aspirin 81 mg p.o. daily Atorvastatin 40 mg p.o. daily PT/OT eval- pt does not have any skillable needs. Discussed with case management. No bed available at [facility] at this time, pending discussion with [facility]. Also awaiting [facility] -Has been evaluated by palliative care on multiple occasion in past - reviewed note. Spoke to them - No new input at this time. Depression Continue mirtazapine 7.5 mg p.o. nightly. Will increase dose to 15 mg nightly Has been declining food. Has had consultation with palliative care from Nov 2018- recs snf placement -Psych consult for Mar 1804/2019 for SI: would not resume SSRI or Seroquel at this time, if needed/backslides would titrate Remeron in 7.5 mg increments -pt declines further psych consult at this time -continue supportive care. Add IVF - D5NSS Seizure disorder Last seizure 03/15/19, harrison gilmorefered for depakote for secondary help with mood Continue divalproex 500 mg p.o. daily Patient also on gabapentin as below -Will be careful about increasing tramadol dosage as it can lower the seizure threshold Chronic neuropathy, chronic pain -Continue Toradol 10mg IV q6h, tramadol 50mg q4h prn, gabapentin 300 mg BID, APAP 650 PO q4h for pain Right humeral fracture, osteopenia - R humeral neck fxr 2/2 seizure and fall from wheelchair. Seen in hospital 03/15/19-03/19/19 - At that time other recommended nonoperative closed management, use of a sling for 3-4 weeks. Supportive care, ice, anti-inflammatories if approved by medical service. Follow up with Dr. Yi in clinic for followup x-rays. Supplemental calcium, vitamin D daily PCP followup last 03/29/2019, unclear when next Ortho appt - Continue Toradol 10mg IV q6h, tramadol 50mg q4h prn, gabapentin 300 mg BID, APAP 650 PO q4h for pain Hypertension Continue metoprolol 25 mg p.o. every morning GERD Continue Protonix 40 mg p.o. daily FEN/GI: HH Diet. IVF - D5NSS DVT prophylaxis: Low Risk. Ambulation. DNR/DNI Dispo: Med Surg. Awaiting snf placement. Appreciate CM assistance. Admission and Anticipated Discharge Date Admission Date: April 22, 2019 Supervising Physician Co-Signing Physician Notes Resident Physician Supervision Note: I independently interviewed and examined the patient and verified the mark history and physical, reviewed labs and image studies, discussed the case with the resident Dr. Palencia and agree with the findings and care plan. Subjective 53 yo M found in bed this AM in NAD. No overnight events. Tolerating PO intake. No issues voiding. Pt with no other acute concerns or complaints. Awaiting placement. Review of Systems Review of Systems: All systems reviewed & are unremarkable except as noted in HPI & below Physical Exam Constitutional: WD/WN, vitals as above + thin and + language barrier (expressive aphasia) Eyes: PERRL, conjunctivae normal, anicteric sclerae ENMT: external ear and nose normal, oropharynx normal Respiratory: normal respiratory effort, lungs clear to auscultation Cardiovascular: RRR, no murmur, no edema Gastrointestinal (Abdomen): normal bowel sounds, soft, nontender, no hepatosplenomegaly Skin: no rashes, warm and dry Neurologic: Motor/Sensory: + abnormal movement (R sided hemiparesis) Psychiatric: A+Ox3, euthymic affect Results & Data ([facility]) Vital Signs (Past 12 Hours) Vital Signs Temp Pulse Resp BP Pulse Ox 04/24/19 07:25 36.4 C L 62 18 161/90 H 99 Laboratory Results Laboratory Results - last 24 hr 04/24/19 04/24/19 05:57 05:57 WBC 4.92 RBC 4.73 Hgb 15.0 Hct 42.7 MCV 90.3 MCH 31.7 MCHC 35.1 RDW Std Deviation 42.3 RDW Coeff of Yadira 12.8 Plt Count 169 MPV 10.3 Immature Gran % (Auto) 0.2 Neut % (Auto) 34.0 Lymph % (Auto) 46.7 [place] % (Auto) 16.3 Eos % (Auto) 2.4 Baso % (Auto) 0.4 Immature Gran # (Auto) 0.01 Neut # (Auto) 1.67 Lymph # (Auto) 2.30 [place] # (Auto) 0.80 H Eos # (Auto) 0.12 Baso # (Auto) 0.02 Sodium 143 Potassium 4.7 D Chloride 111 H Carbon Dioxide 30 Anion Gap 3.0 BUN 5 L Creatinine 0.82 Est Cr Clr Drug Dosing 76.0 Est GFR ( Amer) 116.2 Est GFR (Non-Af Amer) 100.3 BUN/Creatinine Ratio 5.6 L Glucose 108 H Calcium 9.4 Medications Administered Current Inpatient Medications Acetaminophen (Tylenol) 650 mg PO Q4H PRN PRN Reason: pain/fever Stop: 05/20/19 20:35 Last Admin: 04/24/19 13:58 Dose: 650 mg Documented by: Aspirin (Ecotrin Ectab) 81 mg PO DAILY [facility] Stop: 05/21/19 08:59 Last Admin: 04/24/19 08:06 Dose: 81 mg Documented by: Atorvastatin Calcium (Lipitor) 40 mg PO QAM [facility] Stop: 05/21/19 08:59 Last Admin: 04/24/19 08:06 Dose: 40 mg Documented by: Divalproex Sodium (Depakote Extended Release) 500 mg PO DAILY [facility] Stop: 05/21/19 08:59 Last Admin: 04/24/19 08:06 Dose: 500 mg Documented by: Gabapentin (Neurontin) 300 mg PO BID [facility] Stop: 05/20/19 20:59 Last Admin: 04/24/19 08:06 Dose: 300 mg Documented by: Potassium Chloride/Dextrose/Sod Cl (D5nss + 20meq Kcl) 20 meq in 1,000 mls @ 80 mls/hr IV .[id number] [facility] Stop: 05/22/19 09:59 Last Admin: 04/24/19 12:03 Dose: 80 mls/hr Documented by: Ketorolac Tromethamine (Toradol) 10 mg IV Q6H PRN PRN Reason: pain Stop: 04/26/19 14:41 Last Admin: 04/24/19 08:51 Dose: 10 mg Documented by: Metoprolol Succinate (Toprol Xl) 25 mg PO QAM [facility] Stop: 05/21/19 08:59 Last Admin: 04/24/19 08:06 Dose: 25 mg Documented by: Mirtazapine (Remeron) 15 mg PO HS [facility] Stop: 05/23/19 20:59 Last Admin: 04/23/19 21:15 Dose: 15 mg Documented by: Multivitamins/Minerals (Caltrate Plus) 1 tab PO DAILY [facility] Stop: 05/22/19 08:59 Last Admin: 04/24/19 08:06 Dose: 1 tab Documented by: Ondansetron HCl (Zofran) 4 mg IV Q6H PRN PRN Reason: Nausea Stop: 05/20/19 20:35 Pantoprazole Sodium (Protonix) 40 mg PO DAILY [facility] Stop: 05/21/19 08:59 Last Admin: 04/24/19 08:06 Dose: 40 mg Documented by: Tramadol HCl (Ultram) 50 mg PO Q4H PRN PRN Reason: Pain Stop: 05/20/19 20:35 Last Admin: 04/24/19 12:02 Dose: 50 mg Documented by: Resident Activity Tracking Resident Involvement: Resident Care Provided Care Provided: Adult Hospital Medicine
[2019-04-24] MEDS: MIRTAZAPINE TAB 15 MG TAB PO SCH (21:04)
[2019-04-25] MEDS: D5NSS + 20MEQ KCL 20 MEQ/1,000 ML BAG IV SCH ×2 (00:06→12:07)
[2019-04-25] MEDS: TRAMADOL HCL 50 MG TABLET PO PRN (01:13)
[2019-04-25] MEDS ORDERED: ALPRAZolam 0.5 MG TABLET PO STA (02:13)
[2019-04-25 09:07] LABS: Hematocrit (blood only) 44.9 % (42-52); Hemoglobin 15.5 g/dL (14.0-18.0); Mean Corpuscular Hemoglobin 31.3 pg (25-34); Mean Corpuscular Hgb Conc 34.5 g/dL (32-36); Mean Corpuscular Volume 90.5 fL (80-100); Mean Platelet Volume 10.4 fL (7.4-10.4); Platelet Count 163 K/uL (130-400); RDW Coefficient of Variation 12.8 % (11.5-14.5); RDW Standard Deviation 42.2 fL (36.4-46.3); Red Blood Count 4.96 M/uL (4.7-6.1); White Blood Count 4.84 K/uL (4.8-10.8)
[2019-04-25 09:31] LABS: Basophils # (auto) 0.03 K/uL (0-0.2); Basophils % (auto) 0.6 %; Eosinophils # (auto) 0.13 K/uL (0-0.5); Eosinophils % (auto) 2.7 %; Lymphocytes # (auto) 2.65 K/uL (1.2-3.4); Lymphocytes % (auto) 54.8 %; Monocytes # (auto) 0.67 K/uL (0.11-0.59); Monocytes % (auto) 13.8 %; Neutrophils # (auto) 1.36 K/uL (1.4-6.5); Neutrophils % (auto) 28.1 %
[2019-04-25 09:37] LABS: BUN Creatinine Ratio 6.3 (10-20); Calcium 9.3 mg/dl (8.5-10.1); Creatinine Clr Calc Pharmacy 86.5 ml/min; Est GFR (African American) 122.6; Est GFR (Non-African American) 105.8; Potassium 4.2 mmol/L (3.5-5.1)
[2019-04-25] MEDS ORDERED: TRAMADOL HCL 50 MG TABLET PO PRN (09:39)
[2019-04-25] MEDS: KETOROLAC TROMETHAMINE 15 MG/ML VIAL IV PRN (09:39)
[2019-04-25] MEDS: ATORVASTATIN 40 MG TAB PO SCH (09:46)
[2019-04-25] MEDS: GABAPENTIN 300 MG CAP PO SCH (09:46)
[2019-04-25] MEDS: METOPROLOL SUCC 25MG EXT REL TAB PO SCH (09:46)
[2019-04-25] MEDS: PANTOprazole 40 MG TAB PO SCH (09:47)
[2019-04-25] MEDS: ASPIRIN 81 MG ECTAB PO SCH (09:47)
[2019-04-25] MEDS: DIVALPROEX EXTENDED RELEASE 500 MG TAB PO SCH (09:47)
[2019-04-25] MEDS: CALCIUM 600MG + VIT D 400 IU TAB PO SCH (09:47)
--- NOTE | 2019-04-25 11:02 | Discharge Summary ---
Date of Service April 25, 2019 Admission HPI Per Admitting Provider Jim Gardner is a pleasant 49-year-old female with history of expressive aphasia secondary to left MCA ischemic stroke with right-sided hemiplegia, seizure disorder, hypertension, neuropathy, GERD. Patient currently resides at home where he is cared for by his partner/POA. Patient had a fight today with his partner/POA today who stated that he no longer wants to help to care for the patient. His partner left for [facility]. The patient called EMS/Police and was requesting assistance for placement into a correction. Patient presently with complaint of left shoulder pain. No additional complaints at this time. He has history of depression with prior suicide attempts. Presently no SI/HI. ER Course: Tramadol 50mg po Principal Diagnosis L MCA Discharge Exam Constitutional WD/WN, vitals as above + thin and + language barrier (expressive aphasia) Eyes PERRL, conjunctivae normal, anicteric sclerae ENMT external ear and nose normal, oropharynx normal Respiratory normal respiratory effort, lungs clear to auscultation Cardiovascular RRR, no murmur, no edema Gastrointestinal (Abdomen) normal bowel sounds, soft, nontender, no hepatosplenomegaly Skin no rashes, warm and dry Neurologic Motor/Sensory: + abnormal movement (R sided hemiparesis) Psychiatric A+Ox3, euthymic affect Discharge Data Allergies Allergy/AdvReac Type Severity Reaction Status Date / Time codeine Allergy Mild HIVES Verified 03/29/19 13:10 Consultations 04/20/19 19:17 ED Decision to Admit Stat 04/20/19 20:36 Consult Case Management - Discharge Planning Routine Hospital Course (1) H/O ischemic left MCA stroke: Jim is a 53-year-old male with a past medical history of left MCA ischemic stroke with resultant severe expressive aphasia and right-sided hemiparesis, depression/anxiety, GERD, chronic bilateral shoulder pain, chronic right humeral fracture with osteopenia, seizure disorder, and hypertension who presents to the hospital for placement needs. He has previously resided at home and was cared for by his partner/POA with whom he had an argument and whom left for [place]. He is requesting placement at a nursing care facility. The following is the medical management during stay here: History of ischemic left MCA stroke with resultant right hemiplegia and severe expressive aphasia Supplement communication with whiteboard Aspirin 81 mg p.o. daily Atorvastatin 40 mg p.o. daily PT/OT eval- pt does not have any skillable needs. -Has been evaluated by palliative care on multiple occasion in past - reviewed note. Spoke to them - No new input at this time. -pt accepted to [facility] Depression Continue mirtazapine 15 mg p.o. nightly. Has been declining food. Has had consultation with palliative care from Nov 14 019- recs snf placement -Psych consult for Mar 1804/2019 for SI: would not resume SSRI or Seroquel at this time, if needed/backslides would titrate Remeron in 7.5 mg increments -pt declines further psych consult at this time -continue supportive care. Add IVF - D5NSS Seizure disorder Last seizure 03/15/19, harrison deferred for depakote for secondary help with mood Continue divalproex 500 mg p.o. daily Patient also on gabapentin as below -Will be careful about increasing tramadol dosage as it can lower the seizure threshold Chronic neuropathy, chronic pain -Continue tramadol 50mg q6h prn (script sent to pharmacy), gabapentin 300 mg BID, APAP 650 PO q4h for pain. -We also had to use toradol 10mg q6h prn intermittently -pt is very headstrong in terms of timing of these medications. We found it effective to write out the schedule on his white board hour by hour Right humeral fracture, osteopenia - R humeral neck fxr 2/2 seizure and fall from wheelchair. Seen in hospital 03/15/19-03/19/19 - At that time other recommended nonoperative closed management, use of a sling for 3-4 weeks. Supportive care, ice, anti-inflammatories if approved by medical service. Follow up with Dr. Yi in clinic for followup x-rays. Supplemental calcium, vitamin D daily PCP followup last 03/29/2019, Should reach out to ortho for follow up. Hypertension Continue metoprolol 25 mg p.o. every morning GERD Continue Protonix 40 mg p.o. daily At time of d/c, pt had no other acute concerns or complaints. Total Time Total Time Spent Total Time Spent (In Minutes): 30 Discharge Plan Discharge Items Patient Disposition: Trans Resident Long-Term Care Reason For Visit: PLACEMENT NEEDS Discharge Diagnosis: L MCA stroke Activity: Per Instructions section Non-emergency contact: Primary Care Provider Call non-emergency contact if: you have any medication questions, your symptoms worsen and your pain is not controlled Follow-up/Referrals: Ashia Thomas MD [Primary Care Provider] - Diet: Regular Addtl Attending Provider Instructions: Jim is a 53-year-old male with a past medical history of left MCA ischemic stroke with resultant severe expressive aphasia and right-sided hemiparesis, depression/anxiety, GERD, chronic bilateral shoulder pain, chronic right humeral fracture with osteopenia, seizure disorder, and hypertension who presents to the hospital for placement needs. He has previously resided at home and was cared for by his partner/POA with whom he had an argument and whom left for [place]. He is requesting placement at a nursing care facility. The following is the medical management during stay here: History of ischemic left MCA stroke with resultant right hemiplegia and severe expressive aphasia Supplement communication with whiteboard Aspirin 81 mg p.o. daily Atorvastatin 40 mg p.o. daily PT/OT eval- pt does not have any skillable needs. -Has been evaluated by palliative care on multiple occasion in past - reviewed note. Spoke to them - No new input at this time. -pt accepted to [facility] Depression Continue mirtazapine 15 mg p.o. nightly. Has been declining food. Has had consultation with palliative care from Nov 2018- recs snf placement -Psych consult for Mar 1804/2019 for SI: would not resume SSRI or Seroquel at this time, if needed/backslides would titrate Remeron in 7.5 mg increments -pt declines further psych consult at this time -continue supportive care. Add IVF - D5NSS Seizure disorder Last seizure 03/15/19, harrison deferred for depakote for secondary help with mood Continue divalproex 500 mg p.o. daily Patient also on gabapentin as below -Will be careful about increasing tramadol dosage as it can lower the seizure threshold Chronic neuropathy, chronic pain -Continue tramadol 50mg q6h prn (script sent to pharmacy), gabapentin 300 mg BID, APAP 650 PO q4h for pain. -We also had to use toradol 10mg q6h prn intermittently -pt is very headstrong in terms of timing of these medications. We found it effective to write out the schedule on his white board hour by hour Right humeral fracture, osteopenia - R humeral neck fxr 2/2 seizure and fall from wheelchair. Seen in hospital 03/15/19-03/19/19 - At that time other recommended nonoperative closed management, use of a sling for 3-4 weeks. Supportive care, ice, anti-inflammatories if approved by medical service. Follow up with Dr. Yi in clinic for followup x-rays. Supplemental calcium, vitamin D daily PCP followup last 03/29/2019, unclear when next Ortho appt - Continue tramadol 50mg q6h prn (script sent to pharmacy), gabapentin 300 mg BID, APAP 650 PO q4h for pain as above. We also had to use toradol 10mg q6h prn intermittently Hypertension Continue metoprolol 25 mg p.o. every morning GERD Continue Protonix 40 mg p.o. daily At time of d/c, pt had no other acute concerns or complaints. Pending Studies at Discharge: No Stand-Alone Forms: My [facility] Skilled Items Patient informed of condition?: Yes DNR: Yes Discharge Level of Care: Other Communicable Disease: No Discharge Prognosis: Stable Lines: None Urinary Catheter: No Medications and DC Order Prescriptions: New tramadol 50 mg tablet 50 mg PO Q6H PRN (Reason: pain) Qty: 10 RF: 0 Continued Prilosec OTC 20 mg tablet,delayed release (DR/EC) 40 mg PO DAILY Qty: 30 RF: 2 atorvastatin 40 mg Tablet 40 mg PO QAM 30 Days Qty: 30 RF: 2 aspirin [Ecotrin Low Strength] 81 mg Tablet,Delayed Release (Dr/Ec) 81 mg PO QAM 30 Days Qty: 30 RF: 2 divalproex 500 mg Tablet Extended Release 24 Hr 500 mg PO DAILY 30 Days Qty: 30 RF: 3 gabapentin 300 mg Capsule 300 mg PO BID 30 Days Qty: 60 RF: 3 mirtazapine 15 mg Tablet 7.5 mg PO HS 30 Days Qty: 15 RF: 2 metoprolol succinate 25 mg Tablet Extended Release 24 Hr 25 mg PO QAM 30 Days Qty: 30 RF: 2 Discontinued tramadol 50 mg tablet 50 mg PO TID PRN (Reason: Pain) Qty: 0 RF: 0 Discharge Orders: Discharge Order (Routine); Ordered 04/25/19 Ordered By: Tom Palencia Admission Data Admit Date/Time: 04/22/19 13:15 Attending Provider: Aleisha Teague Admit Provider: Mariajose Piper Primary Care Provider: Ashia Thomas Other Providers: Nicolas Thomas ; [facility], ; Bethany,Miriam Other Interventions: Discharge Summary Assessment (RN) Last Done: 04/25/19 12:40 Supervising Physician Co-Signing Physician Notes Resident Physician Supervision Note: I independently interviewed and examined the patient and verified the mark history and physical, reviewed labs and image studies, discussed the case with the resident Dr. Palencia and agree with the findings and care plan. Resident Activity Tracking Resident Involvement: Resident Care Provided Care Provided: Adult Hospital Medicine
[2019-04-25] MEDS: ACETAMINOPHEN 325 MG TAB PO PRN (16:20)
== END 2019-04-25 17:20 | DRG 57 ==
LOC: 4W 12:40 → ED 12:40 → SUATTDRO 19:49 → 4W 20:16